=== PATIENT | female | born 1995 | race Caucasian/White ===

== ENCOUNTER 2024-12-22 15:01 | Outpatient (OUT) | payer OTHER, SELFPAY ==
[2024-12-22 15:48] LABS: Estimated Average Glucose 100 mg/dL; Glycohemoglobin A1C 5.1 % (4.5-6.2)
[2024-12-22 16:01] LABS: Basophils Percent Auto 0.2 % (0.2-2.0); Eosinophils Absolute Auto 0.1 10^3/uL (0.0-0.7); Eosinophils Percent Auto 0.9 % (0.9-7.0); Hematocrit 37.1 % (36.0-48.0); Hemoglobin 12.7 g/dL (12.0-16.0); Immature Granulocytes Abs Auto 0.02 10^3/uL (0.00-0.03); Immature Granulocytes Pct Auto 0.2 % (0.0-0.5); Lymphocytes Absolute Auto 1.2 10^3/uL (1.2-3.8); Lymphocytes Percent Auto 13.2 % (20.5-60.0); Mean Corpuscular HGB Conc 34.2 g/dL (29.9-35.2); Mean Corpuscular Hemoglobin 30.7 pg (26.7-34.0); Mean Corpuscular Volume 89.6 fL (81.0-99.0); Mean Platelet Volume 10.1 fL (9.5-13.5); Monocytes Absolute Auto 0.8 10^3/uL (0.3-0.8); Monocytes Percent Auto 8.9 % (1.7-12.0); Neutrophils Absolute Auto 6.9 10^3/uL (1.4-6.5); Neutrophils Percent Auto 76.6 % (43.0-75.0); Platelet Count 213 10^3/uL (150-450); Red Blood Count 4.14 10^6/uL (4.20-5.40)
[2024-12-22 16:09] LABS: Amphetamine Screen Urine NEGATIVE (NEGATIVE); Barbiturates Screen Urine NEGATIVE (NEGATIVE); Benzodiazepines Screen Urine NEGATIVE (NEGATIVE); Buprenorphine Screen Urine NEGATIVE (NEGATIVE); Cannabinoid Screen Urine NEGATIVE (NEGATIVE); Cocaine Screen Urine NEGATIVE (NEGATIVE); Methadone Screen Urine NEGATIVE (NEGATIVE); Methamphetamines Screen Urine NEGATIVE (NEGATIVE); Opiate Screen Urine NEGATIVE (NEGATIVE); Oxycodone Screen Urine NEGATIVE (NEGATIVE); Phencyclidine Screen Urine NEGATIVE (NEGATIVE); Tricyclic Antidepressant Urine NEGATIVE (NEGATIVE)
[2024-12-23 05:07] LABS: HIV Ab/p24 Ag Screen Non Reactive (Non Reactive)
[2024-12-23 06:08] LABS: HBsAg Screen Negative (Negative); HCV Ab Non Reactive (Non Reactive)
[2024-12-23 12:08] LABS: Rapid Plasma Reagin, Quant Non Reactive titer (NonRea<1:1)
== END 2024-12-22 15:02 | disposition home or self-care (01) ==
LOC: LAB 15:08
PROVIDERS: PCP Obstetrics & Gynecology; Visit Provider Obstetrics & Gynecology
DX: Z34.01 Encounter for supervision of normal first pregnancy, first trimester (principal); N92.6 Irregular menstruation, unspecified
CPT/HCPCS: 36415; 80307; 83036; 85025; 86592; 86762; 86803; 86850; 86900; 86901; 87086; 87340; 87389

== ENCOUNTER 2024-12-28 12:06 | Outpatient (OUT) | payer OTHER, SELFPAY | END 2024-12-28 12:07 | disposition home or self-care (01) | LOC: LAB 12:06 | PROVIDERS: PCP Obstetrics & Gynecology; Visit Provider Obstetrics & Gynecology | DX: Z34.90 Encounter for supervision of normal pregnancy, unspecified, unspecified trimester (principal); N92.6 Irregular menstruation, unspecified | CPT/HCPCS: 36415; 86850; 86900; 86901 ==

== ENCOUNTER 2025-01-05 15:49 | Outpatient (REF) | payer OTHER, SELFPAY ==
[2025-01-09 12:09] LABS: Age Gdln ACOG Testing Note (.); IGP, rfx Aptima HPV ASCU Note (.)
== END 2025-01-05 15:50 | disposition home or self-care (01) ==
LOC: LAB 15:49
PROVIDERS: PCP Obstetrics & Gynecology; Visit Provider Obstetrics & Gynecology
DX: Z01.419 Encounter for gynecological examination (general) (routine) without abnormal findings (principal)
CPT/HCPCS: 88175

== ENCOUNTER 2025-03-02 10:19 | Outpatient (OUT) | payer OTHER, SELFPAY ==
[2025-03-04 01:07] LABS: AFP Value 25.7 ng/mL (.); Insulin Dep Diabetes No (.); Maternal Age At EDD 27.9 yr (.); OSBR Risk 1 IN 10000 (.); Results Report (.)
== END 2025-03-02 10:20 | disposition home or self-care (01) ==
LOC: LAB 10:24
PROVIDERS: Visit Provider Physician Assistant
DX: Z34.92 Encounter for supervision of normal pregnancy, unspecified, second trimester (principal)
CPT/HCPCS: 36415; 82105

== ENCOUNTER 2025-04-21 10:26 | Outpatient (OUT) | payer OTHER, SELFPAY ==
--- OUTSIDE RECORDS SUMMARY | 2024-08-09 13:45 | XMS_ITS | Continuity of Care Document ---
Author Organization [facility] Address [address] [place] [address] Phone Care Team Providers Care Service Delivery Management Consultant Name Role Phone JacobSandhya Unavailable Unavailable Procedures [...] Copied on Encounter Estab - Low () [facility], [address], [place], [place], [address], [place] tel:[phone] [place] No Information Jacob Arthur. [address], [place], [place], [address], [place]. tel:[phone] Estab - Low () [facility], [address], [place], [place], [address], [place] tel:[phone] [place] ([place] No Information Jacob Arthur. [address], [place], [place], [address], [place]. tel:[phone] Estab - Low () [facility], [address], [place], [place], [address], [place] tel:[phone] [place] No Information Chandra Kumar. [address], [place], [place], [address], [place]. tel:[phone] [facility], [address], [place], [place], [address], [place] tel:[phone] [place] No Information Cacchio Elisa. [address], [place], [place], [address], [place]. tel:[phone] Estab - Low () [facility], [address], [place], [place], [address], [place] tel:[phone] [place] No Information Cacchio Elisa. [address], [place], [place], [address], [place]. tel:[phone] [facility], [address], [place], [place], [address], [place] tel:[phone] [place] No Information Matthew Werner. [address], [place], [place], [address], [place]. tel:[phone] [facility], [address], [place], [place], [address], [place] tel:[phone] [place] No Information Cacchio Elisa. [address], [place], [place], [address], [place]. tel:[phone] [facility], [address], [place], [place], [address], [place] tel:[phone] [place] No Information Cacchio Elisa. [address], [place], [place], [address], [place]. tel:[phone] [facility], [address], [place], [place], [address], [place] tel:[phone] [place] No Information Cacchio Elisa. [address], [place], [place], [address], [place]. tel:[phone] [facility], [address], [place], [place], [address], [place] tel:[phone] [place] No Information Cacchio Elisa. [address], [place], [place], [address], [place]. tel:[phone] [facility], [address], [place], [place], [address], [place] tel:[phone] [place] No Information Cacchio Elisa. [address], [address], [place], [place], [address], [place]. tel:[phone] [facility], [address], [place], [place], [address], [place] tel:[phone] [place] No Information Cacchio Elisa. [address], [address], [place], [place], [address], [place]. tel:[phone] [facility], [address], [place], [place], [address], [place] tel:[phone] [place] No Information Cacchio Elisa. [address], [place], [place], [address], [place]. tel:[phone] [facility], [address], [place], [place], [address], [place] tel:[phone] [place] No Information Cacchio Elisa. [address], [place], [place], [address], [place]. tel:[phone] [facility], [address], [place], [place], [address], [place] tel:[phone] [place] No Information Cacchio Elisa. [address], [address], [place], [place], [address], [place]. tel:[phone] [facility], [address], [place], [place], [address], [place] tel:[phone] [place] No Information Cacchio Elisa. [address], [place], [place], [address], [place]. tel:[phone] Estab Pt Ob - Moderate (30-39) [facility], [address], [place], [place], [address], [place] tel:[phone] [place] No Information Emilee Pérez. [address], [place], [place], [address], [place]. tel:[phone] New - Low Complexity (30-44) [facility], [address], [place], [place], [address], [place] tel:[phone] [place] No Information Ron Wheeler. [address], [place], [place], [address], [place]. tel:[phone] Family History Family Member Type Diagnosis Age At Onset No Information Payers Payer name Insurance type Covered alliance party ID [facility](s) [employer] [id number] Social History Type Description Quantity Date Captured [...]
--- OUTSIDE RECORDS SUMMARY | 2025-04-10 11:00 | XMS_ITS | Encounter Summary ---
Author Organization [facility] Address [address] [place] [address] Care Team Providers Care Pants Presser Name Role Phone Unallocated, Noms Provider Primary Care Provi [facility] Encounter Details Date Type Department Care Team (Latest Contact Info) Description 04/10/2025 11:00 AM EDT Ancillary Procedure PILO HERMOSILLO [address] [place] [address] Encounter for follow-up ultrasound of anatomy ([facility]) Social History Tobacco Use Types Packs/Day Years Used Date Smoking Tobacco: Never Assessed Estimated Date of Delivery Comme nts Yes 07/20/2025 Based on last me nstrual period of 10/13/2024 Sex and Gender Information Value Date Recorded Sex Assigned at Not on file Legal Sex Female 6:51 PM EDT Gender Identity Female 11/19/2022 6:51 PM EDT Sexual Orientation Bisexual 11/19/2022 6: 51 PM EDT documented as of this encounter Plan of Treatment Upcoming Encounters Date Type Department Care Team (Late st Contact Info) Description 04/26/2025 11:10 AM EDT Routine PILO HERMOSILLO [address] [place] [address] Josiah Childs DO [address] [place], [place] [id number] documented as of this encounter Procedures Procedure Name Priority Date/Time Associated Diagnosis Comments US OB LIMITED 1+ FETUSES Routine 04/10/2025 11:26 AM EDT Encounter for follow-up ultrasound of anatomy ([facility]) documented in this encounter Results * US OB limited 1+ fetuses (04/10/2025 11:26 AM EDT) Anatomical Region Laterality Modality Body Ultrasound 04/11/2025 1:22 PM EDT Impressions 04/11/2025 1:30 PM EDT Normal craniofacial and cardiac, outflow tract anatomy TRANSCRIBED BY: ELECTRONICALLY SIGNED BY: Oseas Martines MD Narrative 04/11/2025 1:30 PM EDT FINDINGS: Single viable intrauterine , cephalic presentation, normal cardiac and activity, heart rate 143 bpm. Adequate visualization appropriate for age of the craniofacial region, 4 chamber heart outflow tracts. Procedure Note Oseas Martines MD - 04/11/2025 FINDINGS: Single viable intrauterine , cephalic presentation, normalcardiac and activity, heart rate 143 bpm. Adequate visualization appropriate for age of the craniofacial region, 4chamber heart outflow tracts. IMPRESSION: Normal craniofacial and cardiac, outflow tract anatomy TRANSCRIBED BY: ELECTRONICALLY SIGNED BY: Oseas Martines MD us Josiah Childs DO IM OB US PROCEDURES Final Resul t documented in this encounter Visit Diagnoses Diagnosis Encounter for follow-up ultrasound of anatomy ([facility]) documented in this encounter Care Teams Pants Presser Relationship Specialty Start Date End Date Unallocated, Noms Provider, [place] [address] PCP - General Family Medicine 01/25/24 documented as of this encounter
--- OUTSIDE RECORDS SUMMARY | 2025-04-10 11:30 | XMS_ITS | Encounter Summary ---
Author Organization [facility] Address [address] [facility] [place] [address] Care Team Providers Care Clamshell Operator Name Role Phone Unallocated, Noms Provider Primary Care [facility] Reason for Visit * Reason Comments Routine Visit Encounter Details Date Type Department Care Team ([facility] Contact Info) Description 04/10/2025 11:30 AM EDT Routine [facility] [place] [facility] [address] [place] [address] Katarzyna Roberts, JAZMIN [address] [place] [address] Second trimester ([facility]); 25 weeks gestation of ([facility]); History of induced hypertension; H/O pre-eclampsia in prior , currently ([facility]); Diabetes mellitus screening Social History Tobacco Use Types Packs/Day Years [...] PM EDT documented as of this encounter Last Filed Vital Signs Vital Sign Reading Time Taken Comments Blood Pressure 118/72 04/10/2025 11:33 AM EDT Pulse - - Temperature - - Respiratory Rate - - Oxygen Saturation - - Inhaled Oxygen Concentration - - Weight 96.6 kg (213 lb) 04/10/2025 11:33 AM EDT Height - - Body Mass Index 37.73 01/31/2022 12:00 PM EDT documented in this encounter Progress Notes * Katarzyna Roberts NP - 04/10/2025 11:30 AM EDT Reason for Appointment: Patient ID: Deirdre Yusuf is a 29 y.o. female who presents for Routine Visit Patient presents today for Return OB appointment. MEDICATIONS Current Outpatient Medications Medication Instructions levocetirizine (XYZAL) 5 mg, Every evening Vit-Fe Fumarate-FA ( Vitamins) 28-0.8 MG tablet 1 tablet, Oral, Daily ALLERGIES Allergies Allergen Reactions Octacosanol Other Reaction(s): Unknown Amoxicillin Hives, Itching and Rash Other Reaction(s): hives Fluconazole Hives and Rash Other Reaction(s): GI upset, lip swelling PROBLEMS Active Ambulatory Problems Diagnosis Date Noted H/O pre-eclampsia in prior , currently ([facility]) 04/10/2025 History of induced hypertension 04/10/2025 Resolved Ambulatory Problems Diagnosis Date Noted No Resolved Ambulatory Problems No Additional Past Medical History HISTORY PAST MEDICAL HISTORY SOCIAL HISTORY No past medical history on file. Social History Tobacco Use Smoking status: Not on file Smokeless tobacco: Not on file Substance Use Topics Alcohol use: Not on file Drug use: Not on file FAMILY HISTORY No family history on file. SURGICAL HISTORY History reviewed. No pertinent surgical history. REVIEW OF SYSTEMS Review of Systems: Review of Systems Constitutional: Negative. HENT: Negative. Eyes: Negative. Respiratory: Negative. Cardiovascular: Negative. Gastrointestinal: Negative. Genitourinary: Negative. Musculoskeletal: Negative. Skin: Negative. Neurological: Negative. All other systems reviewed and are negative. Hematological: Negative. Endocrine: Negative. Allergic/Immunologic: Negative. OBJECTIVE Objective: Physical Exam Constitutional: Appearance: Normal appearance. She is well-developed. Cardiovascular: Rate and Rhythm: Normal rate and regular rhythm. Pulmonary: Effort: Pulmonary effort is normal. Breath sounds: Normal breath sounds. Abdominal: General: Bowel sounds are normal. There is no distension. Palpations: Abdomen is soft. Tenderness: There is no abdominal tenderness. There is no guarding or rebound. Musculoskeletal: General: No swelling. Normal range of motion. Right lower leg: No edema. Left lower leg: No edema. Neurological: Mental Status: She is alert and oriented to person, place, and time. Skin: General: Skin is warm and dry. Psychiatric: Mood and Affect: Mood normal. Behavior: Behavior normal. Vitals and nursing note reviewed. Exam conducted with a drill press hand present. Vitals: Estimated body mass index is 37.73 kg/m?? as calculated from the following: Height as of 01/31/22: 5' 3 . Weight as of this encounter: 213 lb. BP: 118/72 Patient's last menstrual period was 10/13/2024. ASSESSMENT & PLAN ICD-10-CM 1. Second trimester ([facility]) Z34.92 POCT urinalysis dipstick manually resulted 2. 25 weeks gestation of ([facility]) Z3A.25 3. History of induced hypertension Z87.59 4. H/O pre-eclampsia in prior , currently ([facility]) O09.299 5. Diabetes mellitus screening Z13.1 CBC Glucose tolerance, 1 hour CBC Glucose tolerance, 1 hour Return OB: Patient presents today for a routine obstetrics appointment. Patient is currently 25w4d . Patient states she is doing well but has complaints of being tired due to current . Patient has verbalizes frequent movement. labor precautions was discussed/given and patient was instructed to perform kick counts three times a day. Patient was given 1-hour glucose order to obtain and schedule at [facility]. PVU instructions prior to getting labs drawn. Pt had repeat anatomy US done this morning. Orders Placed This Encounter Procedures CBC Glucose tolerance, 1 hour POCT urinalysis dipstick manually resulted Follow Up: Patient is to return to office in 3 week for routine OB appointment. Documented by Kiki Gaspar MA on behalf of: Katarzyna Roberts NP documented in this encounter Plan of Treatment Upcoming Encounters Date Type Department Care Team (Late st Contact Info) Description 04/26/2025 11:10 AM EDT Routine [facility] [address] [place] [address] Josiah Childs DO [address] [place] [address] Scheduled Orders Name Type Priority Associated Diagnoses Orde r Schedule CBC Lab Routine Diabetes mellitus screening Expected: 04/10/2025 (Approximate), Expires: 04/10/2026 Glucose tolerance, 1 hour Lab Routine Diabetes mellitus screening Expected: 04/10/2025 (Approximate), Expires: 04/10/2026 documented as of this encounter Procedures Procedure Name Priority Date/Time Associated Diagnosis Comments POCT URINALYSIS DIPSTICK Routine 04/10/2025 11:37 AM EDT Second trimester ([facility]) documented in this encounter Results * POCT urinalysis dipstick manually resulted (04/10/2025 11:37 AM EDT) Color, UA Yellow Clarity, UA Clear Glucose, UA Negative Negative - 2000(110) ++++ mg/dL Bilirubin, UA Negative Negative - 4(70) +++ mg/dL Ketones, UA Negative Negative - 160(16) ++++ mg/dL Spec Grav, UA 1.015 1 - 1.03 Blood, UA Negative Negative - 50 Hernan/mcL pH, UA 6.0 5 - 9 Protein, UA Negative Negative - 2000(20) ++++ mg/dL Urobilinogen, UA 1.0 0.2 - 12 mg/dL Leukocytes, UA Negative Negative - 500+++ Deana/mcL Nitrite, UA Negative Negative - Positive Urine 04/10/2025 11:3 7 AM EDT Katarzyna Roberts NP POINT OF CARE TEST ENTER/EDIT ORDERABLES Final Result documented in this encounter Visit Diagnoses Diagnosis Second trimester ([facility]) state, incidental 25 weeks gestation of ([facility]) History of induced hypertension H/O pre-eclampsia in prior , currently ([facility]) Diabetes mellitus screening Screening for diabetes mellitus documented in this encounter Care Teams Clamshell Operator Relationship Specialty Start Date End Date Unallocated, Noms Provider, [address] [place] [address] PCP - General Family Medicine 01/25/24 documented as of this encounter
--- OUTSIDE RECORDS SUMMARY | 2025-04-21 10:30 | XMS_ITS | Encounter Summary ---
Author Organization [facility] Address [address] [facility] [place] [address] Care Team Providers Care Intensive Care Anaesthetist Name Role Phone Unallocated, Noms Provider Primary Care [facility] Encounter Details Date Type Department Care Team (Late st Contact Info) Description 01/13/2025 Orders Only [facility] [address] [place] [address] Elizabeth Weeks MA Social History Tobacco Use Types Packs/Day Years [...] Encounters Date Type Department Care Team (Late Contact Info) Description 04/26/2025 11:10 AM EDT Routine [facility] [address] [place] [address] Josiah Childs DO [address] [place] [address] documented as of this encounter Procedures Procedure Name Priority Date/Time Associated Diagnosis Comments PAP SMEAR Routine 01/05/2025 12:00 AM EDT documented in this encounter Results * Pap Smear (01/05/2025 12:00 AM EDT) Swab Cervical swab / Unknown us Josiah Amadeo DO LAB CYTOLOGY ORDERABLES Final Re sult EXTERNAL LAB documented in this encounter Visit Diagnoses Not on filedocumented in this encounter Care Teams Intensive Care Anaesthetist Relationship Specialty Start Date End Date Unallocated, Noms Provider, [address] [place] [address] PCP - General Family Medicine 01/25/24 documented as of this encounter
--- OUTSIDE RECORDS SUMMARY | 2025-04-21 10:30 | XMS_ITS | Clinical Summary ---
Author Organization [employer] Address [id number] [address] [place] [address] Care Team Providers Care Geographical Historian Name Role Phone No Pcp, No Pcp Primary Care Provider Unavailabl e Allergies Active Allergy Reactions Criticality Noted Date Comments Amoxicillin 07/27/2017 Medications * This document contains information received from the source organization and may not represent a complete record from that organization. hydrOXYzine (ATARAX) 10 mg tablet Take 10 mg by mouth 3 (three) times a day as needed for itching. Active ondansetron ODT (ZOFRAN-ODT) 4 mg disintegrating tablet Dissolve 1 tablet (4 mg total) on tongue every 8 (eight) hours as needed for nausea for up to 10 doses. 10 tablet 1 Active dicyclomine (BENTYL) 20 mg tablet Take 1 tablet (20 mg total) by mouth 4 (four) times a day as needed (abdominal cramping). 10 tablet 1 Active Active Problems Problem Noted Date Diagnosed Date Tylenol overdose 12/19/2017 Social History Tobacco Use Types Packs/Day Years Used Date Smoking Tobacco: Never Smokeless Tobacco: Never Alcohol Use Standard Drinks/Week Comments Yes 0 (1 standard drink = 0.6 oz pur e alcohol) occasionally Childcare Answer Date Recorded Childcare Unknown 02/16/2019 Employment Answer Date Recorded Employment Unknown 02/16/2019 Purpose - Life Answer Date Recorded Purpose and direction in life Unknown Comments No Sex and Gender Information Value Date Recorded Sex Assigned at Not on file Legal Sex Female 11:53 AM EDT Gender Identity Not on file Sexual Orientation Not on file Last Filed Vital Signs Vital Sign Reading Time Taken Comments Blood Pressure 124/81 01/03/2021 4:17 PM EDT Pulse 104 01/03/2021 4:17 PM EDT Temperature 36.8 C (98.2 F) 01/03/2021 4:17 PM EDT Respiratory Rate 18 01/03/2021 4:17 PM EDT Oxygen Saturation 97% 01/03/2021 4:17 PM EDT Inhaled Oxygen Concentration - - Weight 79.4 kg (175 lb) 01/03/2021 4:17 PM EDT Height 160 cm (5' 3 ) 01/03/2021 4:17 PM EDT Body Mass Index 31 01/03/2021 4:17 PM EDT Plan of Treatment Health Maintenance Due Date Last Done Comments Depression Screening 2009 Tobacco Screening 2009 Adult BMI Screening 2015 Pap Smear 2018 DTaP,Tdap and Td Vaccines (7 - Td or Tdap) 08/29/2018 08/29/2008, 02/17/2003, 02/01/1999, Additional history exists Influenza Vaccine 05/08/2025 06/22/2019, , 08/29/2008 Medical Devices Not on file Insurance [employer] Member Subscriber Plan / Payer (Ef fective 2016-Present) Name:Deirdre Nichols Relation to Subscriber:Child Name:Yasmeen Noland Date of :1972 (Home) Address: [address] [place] [address] Payer ID:Not on file Type:Not on file Address: [facility] [address] [place] [id number] Advance Directives * Full Code (Latest Code Status on File) Date Activated Date Inactivated Comments 12/19/2017 2:33 PM 12/20/2017 4:51 PM Care Teams Geographical Historian Relationship Specialty Start Date End Date No Pcp[place] [address] PCP - General Family Medicine 01/03/21
--- OUTSIDE RECORDS SUMMARY | 2025-04-21 10:30 | XMS_ITS | Encounter Summary ---
Author Organization [facility] Address [address] [facility] [place] [address] Care Team Providers Care Tank Furnace Operator Name Role Phone Unallocated, Noms Provider Primary Care [facility] Encounter Details Date Type Department Care Team (Late st Contact Info) Description 04/14/2025 Abstract [facility] [address] [place] [address] Elizabeth Weeks MA Social History Tobacco [...] EDT Routine [facility] [address] [place] [address] Josiah Childs DO [address] [place] [address] documented as of this encounter Visit Diagnoses Not on filedocumented in this encounter Care Teams Tank Furnace Operator Relationship Specialty Start Date End Date Unallocated, Noms Provider, [address] [place] [address] PCP - General Family Medicine 01/25/24 documented as of this encounter
--- OUTSIDE RECORDS SUMMARY | 2025-04-21 10:30 | XMS_ITS | Clinical Summary ---
Author Organization [facility] Address [address] [place] [address] Care Team Providers Care Manager Green Name Role Phone Unallocated, Noms Provider Primary Care Provi layo Allergies Active Allergy Reactions Criticality Noted Date Comments Amoxicillin Hives,Itching,Rash Low 07/27/2017 Other Reaction(s): hives Fluconazole Hives,Rash Low 06/22/2021 Other Reaction(s): GI upset, lip swelling Octacosanol 12/22/2024 Other Reaction(s): Unknown Medications Vit-Fe Fumarate-FA ( Vitamins) 28-0.8 MG tabletIndication s:, unspecified gestational age ([facility]),Encoun ter for supervision of normal first in first trimester ([facility]) Take 1 tablet by mouth Daily 30 tablet 11 12/22/2024 12/23/19 26 Active levocetirizine (Xyzal) 5 MG tablet Take 5 mg by mouth in the evening Active Active Problems Problem Noted Date Diagnosed Date H/O pre-eclampsia in prior p regnancy, currently ([facility]) 04/10/2025 History of induced hypertension 2024 Estimated Date of Delivery Comme nts Yes 07/20/2025 Based on last me nstrual period of 10/13/2024 Encounters Date Type Department Care Team Description 04/19/2025 Abstract [facility] [place] [facility] [address] [place] [address] [place] [address] Josiah Childs DO 04/14/2025 Abstract [facility]ath[facility] [place] [address] Micky [place], [place] 04/10/2025 11:30 [place] [address] Katarzyna Roberts NP Second trimester ([facility]); 25 weeks gestation of ([facility]); History of induced hypertension; H/O pre-eclampsia in prior , currently ([facility]); Diabetes mellitus screening 04/10/2025 11:00 AM EDT [place] [address] Encounter for follow-up ultrasound of anatomy ([facility]) 03/14/2025 [place] [address] [place], [place] 03/02/2025 10:20 AM [place] [address] Ernestine López PA Second trimester ([facility]); 20 weeks gestation of ([facility]) 03/02/2025 9:00 AM EDT Ancillary Procedure [facility] [place] [address] Screening, , for anatomic survey ([facility]) 03/02/2025 Clinisync Result Encounter [facility] External Department Unsolicited Ernestine López PA 03/01/2025 Travel 02/02/2025 10:30 AM [place] [address] Ernestine López PA 16 weeks gestation of ([facility]); Second trimester ([facility]); Screening, , for anatomic survey ([facility]) 02/02/2025 Bamboo flowsheet [facility] Sathish HERMOSILLO [address] [place] [phone] Ernestine López PA 01/31/2025 Travel from Last 3 Months Social History Tobacco Use Types Packs/Day Years Used Date Smoking Tobacco: Never Assessed Estimated Date of Delivery Comme nts Yes 07/20/2025 Based on last me nstrual period of 10/13/2024 Sex and Gender Information Value Date Recorded Sex Assigned at Not on file Legal Sex Female 6:51 PM EDT Gender Identity Female 11/19/2022 6:51 PM EDT Sexual Orientation Bisexual 11/19/2022 6: 51 PM EDT Last Filed Vital Signs Vital Sign Reading Time Taken Comments Blood Pressure 118/72 04/10/2025 11:33 AM EDT Pulse - - Temperature - - Respiratory Rate - - Oxygen Saturation - - Inhaled Oxygen Concentration - - Weight 96.6 kg (213 lb) 04/10/2025 11:33 AM EDT Height 160 cm (5' 3 ) 01/31/2022 12:00 PM EDT Body Mass Index 37.73 01/31/2022 12:00 PM EDT Plan of Treatment Upcoming Encounters Date Type Department Care Team (Late st Contact Info) Description 04/26/2025 11:10 AM EDT Routine [facility] Sathish HERMOSILLO [address] [place] [phone] Josiah Childs DO [address] [facility] [address] [place] [address] Health Maintenance Due Date Last Done Comments Influenza Vaccine (#1) 2025 2, 06/20/2020, 06/22/2019, Additional history exists Procedures Procedure Name Priority Date/Time Associated Diagnosis Comments POCT URINALYSIS DIPSTICK Routine 04/10/2025 11:37 AM EDT Second trimester ([facility]) US OB LIMITED 1+ FETUSES Routine 04/10/2025 11:26 AM EDT Encounter for follow-up ultrasound of anatomy ([facility]) AFP, SERUM, OPEN SPINA BIFIDA Routine 03/02/2025 10:36 AM EDT POCT URINALYSIS DIPSTICK Routine 03/02/2025 10:03 AM EDT Second trimester ([facility]) 20 weeks gestation of ([facility]) US OB 14+ WEEKS ANATOMY SCAN Routine 03/02/2025 9:45 AM EDT Screening, , for anatomic survey ([facility]) POCT URINALYSIS DIPSTICK Routine 02/02/2025 10:49 AM EDT 16 weeks gestation of ([facility]) Second trimester ([facility]) from Last 3 Months Results * POCT urinalysis dipstick manually resulted (04/10/2025 11:37 AM EDT) Only the most recent of3 resultswithin the time period is included. Color, UA Yellow Clarity, UA Clear Glucose, [...] OF CARE TEST ENTER/EDIT ORDERABLES Final Result * US OB limited 1+ fetuses (04/10/2025 [...] SIGNED BY: Oseas Martines MD us Josiah Amadeo DO IMG OB US PROCEDURES Final Resul t * AFP, SERUM, OPEN SPINA BIFIDA (03/02/2025 10:36 AM EDT) RESULTS Report . [facility] TEST RESULTS: *Screen Negative* . [facility] GEST. AGE ON COLLECTION DATE 20.0 . weeks [facility] GESTAT. AGE BASED ON LMP . [facility] Comment: Recalculations are not recommended when gestational dating by LMP and ultrasound are within 10 days. [age] [facility] RACE . [facility] WEIGHT 206 . lbs [facility] INSULIN DEP DIABETES No . [facility] MULTIPLE GESTATION No . [facility] AFP VALUE 25.7 . ng/mL [facility] AFP MOM 0.55 . [facility] [place] [address] [place] [address] . [facility] INTERPRETATION Comment . [facility] Comment: Interpretation: Screen Negative This result is screen negative for OSB. The AFP MoM calculated is based on the gestational age provided. MS-AFP can identify up to 80% of open neural tube defects. Closed neural tube defects and some open defects may not be detected by this test. This test does not screen for Down Syndrome or Trisomy 18. If screening for Down Syndrome or Trisomy 18 is desired, contact [facility] to discuss available options. The [place] [employer] recommends amniocentesis be offered to women age 35 and older. COMMENT: Comment . [facility] Comment: Sidra Da Silva, Ph.D., [facility] Director References: Available Upon Request. Multiples Of Median Cutoffs For AFP Elevations Root 2.5 Black 2.8 IDD 2.0 Twins 4.5 Abbreviation Definitions IDD - Insulin Dep Diabetes OSBR - Open Spina Bifida Risk For further inquiries contact [facility] at [phone]. This test was developed and its performance characteristics determined by [email or web address]. It has not been cleared or approved by the Food and Drug Administration. Performed at: [facility] [address] [id number] Line Maintenance: Basilia Taylor [facility], Phone: [phone] 03/02/2025 10:3 6 AM EDT 03/02/2025 10:37 AM EDT Narrative LISA - 03/04/2025 1:07 AM EDT N N LMP [id number] 0 16 N 1 Y 206 N N N N N White/ us Ernestine [facility] LAB BLOOD ORDERABLES Final [facility]ul t [facility] * US OB 14+ weeks anatomy scan (03/02/2025 9:45 AM EDT) Anatomical Region Laterality Modality Body Ultrasound 03/05/2025 10:0 4 PM EDT Narrative 03/05/2025 10:04 PM EDT EXAM: US OB 14+ WEEKS ANATOMY SCAN HISTORY: anatomy. COMPARISON: Ob ultrasound 12/22/2024. TECHNIQUE: Two-dimensional transabdominal grayscale ultrasound imaging of the pelvis was performed. FINDINGS: Gestation: Single Presentation: Breech Cardiac Activity: 155 beats per minute Placental Location: Anterior with no sonographic abnormalities identified. Distance from Placental Tip to Cervix: 7.1 cm Cervical Length: 4.0 cm Amniotic Fluid: Appears adequate MEASUREMENTS: BPD: 4.3 cm EGA: 19 weeks 0 days HC: 16.3 cm EGA: 19 weeks 1 days AC: 15.2 cm EGA: 20 weeks 3 days FL: 3.3 cm EGA: 20 weeks 1 days HC/AC Ratio: 1.08 The gestational age by today's ultrasound is 19 weeks 5 days (+/- 10 days gestation). Estimated Weight: 334 grams, +/- 50 grams ( 0 lb 12 oz). Weight Percentile for gestational age: 53 % ANATOMY C-Spine: Unremarkable T-Spine: Unremarkable L-Spine: Unremarkable Sacrum: Unremarkable Four Chamber Heart: Limited LVOT: Not visualized RVOT: Not visualized Stomach: Unremarkable Kidneys: Unremarkable Bladder: Unremarkable Diaphragm: Unremarkable Cord insertion: Unremarkable Cord vessels: Three Lateral Ventricles: Unremarkable Cerebellum: Unremarkable Cisterna Magna: Unremarkable Posterior Fossa: Unremarkable Right Femur: Unremarkable Left Femur: Unremarkable Right Tib/Fib: Unremarkable Left Tib/Fib: Unremarkable Right Rad/Ulnar: Unremarkable Left Rad/Ulnar: Unremarkable Right Humerus: Unremarkable Left Humerus: Unremarkable Nose/Lips: Not visualized Profile: Unremarkable Orbits: Limited IMPRESSION: 1. Single, live intrauterine gestation 20 weeks, 0 days by LMP. Today's ultrasound measurements correlate with a gestational age of 19 weeks 5 days. Estimated weight is 334 grams, +/- 50 grams ( 0 lb 12 oz) which correlates to 53 %. EVA by today's ultrasound is 07/22/2025. 2. Limited anatomy, as described above. A short-term follow-up ultrasound is recommended. Interpreted by: Electronically signed by DELFINO ZENDEJAS II, MD, PHD at 05-Mar-2025 10:03:06 PM [facility] Procedure Note Delfino Zendejas MD - 03/05/2025 EXAM: US OB 14+ WEEKS ANATOMY SCAN HISTORY: anatomy. COMPARISON: Ob ultrasound 12/22/2024. TECHNIQUE: Two-dimensional transabdominal grayscale ultrasound imaging ofthe pelvis was performed. FINDINGS: Gestation: Single Presentation: Breech Cardiac Activity: 155 beats per minute Placental Location: Anterior with no sonographic abnormalitiesidentified. Distance from Placental Tip to Cervix: 7.1 cm Cervical Length: 4.0 cm Amniotic Fluid: Appears adequate MEASUREMENTS: BPD: 4.3 cm EGA: 19 weeks 0 days HC: 16.3 cm EGA: 19 weeks 1 days AC: 15.2 cm EGA: 20 weeks 3 days FL: 3.3 cm EGA: 20 weeks 1 days HC/AC Ratio: 1.08 The gestational age by today's ultrasound is 19 weeks 5 days (+/- 10 daysgestation). Estimated Weight: 334 grams, +/- 50 grams ( 0 lb 12 oz). Weight Percentile for gestational age: 53 % ANATOMY C-Spine: Unremarkable T-Spine: Unremarkable L-Spine: Unremarkable Sacrum: Unremarkable Four Chamber Heart: Limited LVOT: Not visualized RVOT: Not visualized Stomach: Unremarkable Kidneys: Unremarkable Bladder: Unremarkable Diaphragm: Unremarkable Cord insertion: Unremarkable Cord vessels: Three Lateral Ventricles: Unremarkable Cerebellum: Unremarkable Cisterna Magna: Unremarkable Posterior Fossa: Unremarkable Right Femur: Unremarkable Left Femur: Unremarkable Right Tib/Fib: Unremarkable Left Tib/Fib: Unremarkable Right Rad/Ulnar: Unremarkable Left Rad/Ulnar: Unremarkable Right Humerus: Unremarkable Left Humerus: Unremarkable Nose/Lips: Not visualized Profile: Unremarkable Orbits: Limited IMPRESSION: 1. Single, live intrauterine gestation 20 weeks, 0 days by LMP. Today'sultrasound measurements correlate with a gestational age of 19 weeks 5days. Estimated weight is 334 grams, +/- 50 grams ( 0 lb 12 oz)which correlates to 53 %. EVA by today's ultrasound is 07/22/2025. 2. Limited anatomy, as described above. A short-term follow-upultrasound is recommended. Interpreted by: Electronically signed by DELFINO ZENDEJAS II, MD, PHD 10:03:06 PM [facility] us Ernesitne [facility] IMG OB US PROCEDURES Final Resul t from Last 3 Months Insurance [employer] Care Teams Manager Green Relationship Specialty Start Date End Date Unallocated, Noms Provider, [address] [place], [place] [phone] PCP - General Family Medicine 01/25/24
--- OUTSIDE RECORDS SUMMARY | 2025-04-21 10:30 | XMS_ITS | Encounter Summary ---
[facility] Address [id number] [address] [place] [address] Care Team Providers Care Collective Bargaining Specialist Name Role Phone No Pcp, No Pcp Primary Care Provider Unavailabl e Encounter Details Date Type Department Care Team (Late st Contact Info) Description 12/20/2017 Documentation [facility] - ICU [address] [place] [phone] Eusebio Fry, NAIL MAKER-FRUIT VENDOR [address], [address] [place] [address] Social History Tobacco Use Types Packs/Day Years Used Date Smoking Tobacco: Never Smokeless Tobacco: Never Alcohol Use Standard Drinks/Week Comments No 0 (1 standard drink = 0.6 oz pur e alcohol) Comments No Sex and Gender Information Value Date Recorded Sex Assigned at Not on file Legal Sex Female 11:53 AM EDT Gender Identity Not on file Sexual Orientation Not on file documented as of this encounter Plan of Treatment Not on file documented as of this encounter Visit Diagnoses Not on filedocumented in this encounter Care Teams Collective Bargaining Specialist Relationship Specialty Start Date End Date No Pcp, [place] [address] PCP - General Family Medicine 01/03/21 documented as of this encounter
--- OUTSIDE RECORDS SUMMARY | 2025-04-21 10:30 | XMS_ITS | Encounter Summary ---
Author Organization [facility] Address [address] [place] [address] Care Team Providers Care Pulp Operator Name Role Phone Unallocated, Noms Provider Primary Care Provi [facility] Encounter Details Date Type Department Care Team (Late Contact Info) Description 04/19/2025 [address] [facility] [place] [phone] Josiah Childs DO [address] [place], [place] [address] Social History Tobacco Use Types Packs/Day Years [...] EDT Routine PILO [address]ILLO [address] [place] [phone] Josiah Childs DO [address], [facility] documented as of this encounter Visit Diagnoses Not on filedocumented in this encounter Care Teams Pulp Operator Relationship Specialty Start Date End Date Unallocated, Noms Provider, [address] [place] [address] PCP - General Family Medicine 01/25/24 documented as of this encounter
--- OUTSIDE RECORDS SUMMARY | 2025-04-21 10:30 | XMS_ITS | Clinical Summary ---
Author Organization [facility] Address [address] [place] [address] Care Team Providers Care Barista Name Role Phone Alicia Jurado [employer]ICOND[employer] PACKAGES PLATEMAKER Primary Care Provider + [phone] Allergies Active Allergy Reactions Criticality Noted Date Comments Amoxicillin Rash Low 07/27/2017 Fluconazole Hives 01/20/2024 Medications cetirizine (ZYRTEC) 10 MG tablet 06/01/2023 Active prenat.vits,raina, [id number] Tab Take by mouth . Active Active Problems Problem Noted Date Diagnosed Date 01/20/2024 Social History Tobacco Use Types Packs/Day Years Used Date Smoking Tobacco: Never Smokeless Tobacco: Never Tobacco Cessation:Counseling Given: Not Answered Alcohol Use Standard Drinks/Week Comments Not Currently 0 (1 standard drink = 0.6 oz pur e alcohol) [facility] Utilities Answer Date Recorded In the past 12 months has [facility] [employer], gas, oil, or water [employer] threatened to shut off services in your home? No 01/21/2024 Humiliation, Afraid, Rape, and Kick questionnair e Answer Date Recorded Within the last year, have y ou been afraid of your partner or ex-partner? No 01/21/2024 Within the last year, have y ou been humiliated or emotionally abused in other ways by your partner or ex-partner? No Within the last year, have y ou been kicked, hit, slapped, or otherwise physically hurt by your partner or ex-partner? No 01/21/2024 Within the last year, have y ou been raped or forced to have any kind of sexual activity by your partner or ex-partner? No 01/21/2024 Hunger Vital Sign Answer Date Recorded Within the past 12 months, y ou worried that your food would run out before you got the money to buy more. Never true 01/21/20 24 Within the past 12 months, t he food you bought just didn't last and you didn't have money to get more. Never true 01/21/2024 PRAPARE - Transportation Answer Date Re corded In the past 12 months, has l ack of transportation kept you from medical appointments or from getting medications? No 01/05 In the past 12 months, has l ack of transportation kept you from meetings, work, or from getting things needed for daily living? No 01/21/2024 Housing Stability Vital Sign Answer Raulito e Recorded In the last 12 months, was t here a time when you were not able to pay the mortgage or rent on time? No 01/21/2024 In the last 12 months, how many places have you lived? 1 01/21/2024 In the last 12 months, was t here a time when you did not have a steady place to sleep or slept in a correction (including now)? No 01/21/2024 Comments No Sex and Gender Information Value Date Recorded Sex Assigned at Not on file Legal Sex Female 2:07 PM EST Gender Identity Female 01/13/2024 3:35 PM EDT Sexual Orientation Not on file Last Filed Vital Signs Vital Sign Reading Time Taken Comments Blood Pressure 128/84 01/24/2024 8:29 AM EDT Pulse 92 01/24/2024 8:29 AM EDT Temperature 36.7 C (98.1 F) 01/24/2024 8:29 AM EDT Respiratory Rate 16 01/24/2024 1:30 PM EDT Oxygen Saturation 99% 01/24/2024 8:29 AM EDT Inhaled Oxygen Concentration - - Weight 103.9 kg (229 lb) 01/20/2024 9:00 PM EDT Height 160 cm (5' 3 ) 01/20/2024 9:00 PM EDT Body Mass Index 40.57 01/20/2024 9:00 PM EDT Plan of Treatment Health Maintenance Due Date Last Done Comments Medicare Wellness Visit 2000 Depression Screening/Follow-Up (PHQ-2/9) 2009 HIV Screening 2012 Tetanus: Every 10yrs 08/29/2018 08/29/2008 COVID-19 Vaccine ( season) 2024 08/12/2021, 12/19/2020, 11/27/2020 Influenza Vaccine (#1) 2025 , 06/20/2020, 06/22/2019, Additional history exists Pap Smear 08/25/2025 08/25/2022 Hepatitis C Screening Completed 01/20/2024 Pneumococcal Vaccine: Ped or At-Risk Aged Out No longer eligible based on patient's age to complete this topic Procedures Procedure Name Priority Date/Time Associated Diagnosis Comments HEPATITIS C ANTIBODY Routine 01/20/2024 8:29 PM EDT from Last 3 Months or Most Recently Relevant to Health Maintenance Results * Hepatitis C Antibody (01/20/2024 8:29 PM EDT) Hepatitis C Ab Negative Negative 01/20/2024 10:56 PM EDT [facility] Blood BLOOD SPECIMEN / Unknown Venipuncture / Unknown 01/20/2024 8:29 PM EDT 01/20/2024 8:56 PM EDT Narrative [facility] - 01/20/2024 10:56 PM EDT Test performed using Dorie KERRI immunoassay system Jose Foley MD LAB BLOOD ORDERABLES Final Result [facility] [address] [place] [address] from Last 3 Months or Most Recently Relevant to Health Maintenance Insurance MEDIC[facility] [place] [id number] Advance Directives For more information, please contact: [phone] * Full Code (Latest Code Status on File) Date Activated Date Inactivated Comments 01/22/2024 5:02 AM 01/24/2024 6:06 PM * Full Code Date Activated Date Inactivated Comments 01/22/2024 12:48 AM 01/22/2024 3:31 AM * Full Code Date Activated Date Inactivated Comments 01/20/2024 8:58 PM 01/22/2024 12:48 AM Care Teams Barista Relationship Specialty Start Date End Date Alicia Jurado CNP [address] [place] [address] PCP - General 01/13/24
--- OUTSIDE RECORDS SUMMARY | 2025-04-21 10:34 | XMS_ITS | CCD ---
Author Organization [facility] Care Team Providers Care Director Underwriter Sales Name Role Phone ROSALEE LR Admitting Unavailable ROSALEE LR Attending Unavailable ROSALEE LR Consulting Unavailable HERIBERTO JHA Admitting Unavailable HERIBERTO JHA Attending Unavailable MISC, DOCTOR Primary Care Unavailable HERIBERTO JHA Consulting Unavailable WYATT CURRAN Consulting Unavailable Neuhart AIR BAG CURER, Ej Primary Care Provider Neueric AIR BAG CURER, Ej Primary Care Provider EJ BURK Attending Unavailable NEUSINCERET, EJ Primary Care Unavailable NEUYADY HAWKINSA Attending Unavailable NEUHART, EJ Primary Care Unavailable NEUHART, EJ Primary Care Unavailable NEUHART EJ Attending Unavailable PAMELA WILLIAM Attending Unavailabl e NO, PHYSICIAN Primary Care Unavailable Neuhart SVETA, Ej Primary Care Provider FRANKIE ARTIS Attending Unavailab JAMES Muñoz Admitting Unavailable NO, PHYSICIAN Primary Care Unavailable [facility] onsulting Unavailable Unallocated MD, Noms Provider Primary Care Provi layo JOSIAH CHILDS Attending Unavailable ERNESTINE LÓPEZ Attending Unavailable ERNESTINE LÓPEZ Attending Unavailable QUINCY ROBERTS Attending Unavailable Allergies Allergy Classification Reported Allergen(s) Allergy Type Date of Onset Reaction(s) Facility (20 sources) Amoxicillin; Translations: [AMOXICILLIN] Drug Allergy 7 Hives, Itching, Rash Tk20 (6 sources) Fluconazole; Translations: [FLUCONAZOLE] Drug Allergy 1 Rash, Hives [facility] Work Phone: (15 sources) Fluconazole Allergy to substance 1 Hives, Rash [facility] (15 sources) Octacosanol Drug Intolerance 5 [facility] Medications Current Medications Medication Drug Class(es) Dates Sig (Normalized) Sig (Original) cetirizine hydrochloride 10 mg oral tablet (11 sources) Histamine-1 Receptor Antagonist Start: 06-01-2023 cetirizine (ZYRTEC) 10 MG tablet Start: 07-21-2022 End: 03-02-2025 take 1 tablet by mouth once daily cetirizine (ZyrTEC) 10 mg tablet Indications: Allergic rhinitis, unspecified seasonality, unspecified trigger Take 1 tablet (10 mg total) by mouth 1 (one) time each day if needed for allergies. 90 tablet 3 11/24/2022 Active fluticasone propionate 0.05 mg/actuat metered dose nasal spray (4 sources) Corticosteroid Start: 07-21-2022 End: 07-21-2023 take 2 spray(s) nasal route once daily fluticasone propionate (FLONASE) 50 mcg/actuation nasal spray Indications: Allergic rhinitis, unspecified seasonality, unspecified trigger Administer 2 sprays into each nostril 1 (one) time each day. Shake gently. Before first use, prime pump. After use, clean tip and replace cap. 30 mL 3 07/21/2022 07/21/2023 Active hydrOXYzine hydrochloride 50 mg oral tablet (4 sources) Antihistamine Start: 06-09-2020 hydrOXYzine HCL (ATARAX) 50 mg tablet levocetirizine dihydrochloride 5 mg oral tablet (5 sources) Histamine-1 Receptor Antagonist take 1 tablet by mouth in the evening levocetirizine (Xyzal) 5 MG tablet Take 5 mg by mouth in the evening Active metroNIDAZOLE 0.0075 mg/mg vaginal gel (4 sources) Nitroimidazole Antimicrobial Start: 12-26-2024 End: 12-31-2024 metroNIDAZOLE (Metrogel) 0.75 % vaginal gel Indications: BV (bacterial vaginosis) Insert into the vagina Daily for 5 days 70 g 12/26/2024 12/31/2024 Active Start: 12-22-2024 End: 12-29-2024 take 1 tablet by mouth in the morning metroNIDAZOLE (Flagyl) 500 MG tablet Indications: BV (bacterial vaginosis) Take 1 tablet (500 mg) by mouth in the morning and 1 tablet (500 mg) before bedtime. Do all this for 7 days. 14 tablet 12/22/2024 12/29/2024 Active prenat.vits,raina,ixa-oylu-xsj ic Tab (2 sources) prenat.vits,raina, gxw-ylvo-bltbb Tab Take by mouth . 0 Active prenat.vits,raina, tlz-ifsf-woqwy Tab Take by mouth . 0 Vit-Fe Fumarate-FA ( Vitamins) 28-0.8 MG tablet (15 sources) Start: 12-22-2024 End: 12-22-2025 take 1 tablet by mouth once daily Vit-Fe Fumarate-FA ( Vitamins) 28-0.8 MG tablet Indications: , unspecified gestational age ([facility]) , Encounter for supervision of normal first in first trimester ([facility]) Take 1 tablet by mouth Daily 30 tablet 11 12/22/2024 12/22/2025 Active Start: 12-22-2024 End: 12-22-2025 take 1 tablet by mouth once daily Vit-Fe Fumarate-FA ( Vitamins) 28-0.8 MG tablet Indications: , unspecified gestational age , Encounter for supervision of normal first in first trimester Take 1 tablet by mouth Daily 30 tablet 12/22/2024 12/22/2025 Active Completed/Discontinued Medications Medication Drug Class(es) Dates Sig (Normalized) Sig (Original) acetaminophen 325 mg oral tablet (2 sources) Start: 01-21-2024 End: 01-24-2024 take 1 tablet by mouth every four hours as needed for pain 650 mg, Oral, Every 4 hours PRN, mild pain, Starting on Thu01/22/24 at 0502, aluminum hydroxide 40 mg/ml / magnesium hydroxide 40 mg/ml / simethicone 4 mg/ml oral suspension (1 source) Start: 01-22-2024 End: 01-24-2024 take 30 mL by mouth every four hours as needed 30 mL, Oral, Every 4 hours PRN, indigestion, Starting on Thu01/22/24 at 0502, calcium carbonate 500 mg chewable tablet (1 source) Start: 01-21-2024 End: 01-22-2024 calcium carbonate (TUMS) chewable tablet 500 mg calcium chloride 0.0014 meq/ml / potassium chloride 0.004 meq/ml / sodium chloride 0.103 meq/ml / sodium lactate 0.028 meq/ml injectable solution (1 source) Start: 01-20-2024 End: 01-22-2024 lactated Ringers infusion 1 ml carboprost 0.25 mg/ml injection (2 sources) Prostaglandin Analog Start: 01-22-2024 End: 01-24-2024 inject 250 ug by intramuscular injection every twenty-four hours as needed 250 mcg, Intramuscular, Once as needed, hemorrhage, Starting on Thu01/22/24 at 0502, For 1 dose, , Only give as directed by physician Do not administer to asthmatics. Start: 01-22-2024 End: 01-22-2024 inject 250 ug by intramuscular injection every twenty-four hours as needed carboprost (HEMABATE) injection 250 mcg diphenhydrAMINE (1 source) Histamine-1 Receptor Antagonist Start: 01-22-2024 End: 01-24-2024 take 1 tablet by mouth every six hours as needed diphenhydrAMINE (BENADRYL) tablet 25 mg docusate sodium 100 mg oral capsule (1 source) Start: 01-22-2024 End: 01-24-2024 take 100 mg by mouth twice daily as needed for constipation 100 mg, Oral, 2 times daily PRN, constipation, Starting on Thu01/22/24 at 0502, , Hold for loose stools DO NOT CRUSH OR CHEW. ferrous sulfate 325 mg oral tablet (1 source) Start: 01-22-2024 End: 01-24-2024 ferrous sulfate tablet 325 mg 0.5 ml HYDROmorphone hydrochloride 1 mg/ml prefilled syringe (3 sources) Opioid Agonist Start: 01-22-2024 End: 01-24-2024 take 0.5 mg intravenously every twenty-four hours as needed 0.5 mg, Intravenous, Once as needed, Pain Associated with Hemorrhage Management., Starting on Thu01/22/24 at 0502, For 1 dose, Start: 01-20-2024 End: 01-24-2024 0.5 mg, Intravenous, Every 1 5 min PRN, While on Epidural, for moderate to severe breakthrough pain, Starting on [place] 01/21/24 at 0305, Sign and Release, Use IV if moderate to severe pain persists 30 minutes after one dose of sublingual oxycodone or morphine, or if sublingual route not ordered. Do not exceed 1 mg per hour. Call anesthesia if moderate to severe pain persists 15 minutes after a second IV dose given within an hour. ibuprofen 600 mg oral tablet (2 sources) Nonsteroidal Anti-inflammatory Drug Start: 01-22-2024 End: 01-24-2024 take 1 dose by mouth every six hours at mealtime 600 mg, Oral, Every 6 hours scheduled, First dose on Thu01/22/24 at 1200, , Give with food. Do not give within 6 hours of other NSAIDS, initial ibuprofen dose or ketorolac (Toradol). Do Not Crush or Chew if administering orally due to bitter taste. May be crushed if given via tube. Start: 01-22-2024 End: 01-22-2024 take 1 tablet by mouth every twenty-four hours as needed for pain ibuprofen (ADVIL,MOTRIN) tablet 800 mg loperamide hydrochloride 2 mg oral capsule (1 source) Opioid Agonist Start: 01-22-2024 End: 01-24-2024 loperamide (IMODIUM) capsule 2 mg 1 ml methylergonovine maleate 0.2 mg/ml injection (2 sources) Ergot Derivative Start: 01-22-2024 End: 01-24-2024 inject 200 ug by intramuscular injection every twenty-four hours as needed 200 mcg, Intramuscular, Once as needed, hemorrhage, Starting on Thu01/22/24 at 0502, For 1 dose, , Only give as directed by physician DO NOT ADMINISTER IF BP greater than 140/90 or pre-existing hypertension. CATEGORY B HAZARDOUS DRUG use safe handling precautions. Use reference link to view PPE guidelines. Safe handling precautions only required when in the third trimester. EMERGENCY Hazardous Drug use professional judgement when deviating from standard handling precautions. Start: 01-22-2024 End: 01-22-2024 methylergonovine (METHERGINE ) injection miSOPROStol 0.2 mg oral tablet (1 source) Prostaglandin E1 Analog Start: 01-22-2024 End: 01-24-2024 take 1 tablet rectal route every twenty-four hours as needed 1,000 mcg, Rectal, Once as needed, hemorrhage, Starting on Thu01/22/24 at 0502, For 1 dose, , Only give as directed by physician Hazardous Medication. Use safe handling precautions CATEGORY D HAZARDOUS DRUG use safe handling precautions. Use reference link to view PPE guidelines. Minimize crushing/splitting only to situations where clinically necessary. 1 ml nalbuphine hydrochloride 10 mg/ml injection (1 source) Opioid Agonist/Antagonis t Start: 01-21-2024 End: 01-24-2024 take 2.5 mg intravenously every six hours as needed 2.5 mg, Intravenous, Every 6 hours PRN, itching, Starting on [place] 01/21/24 at 0305, Sign and Release, For itching while Epidural Infusion orders in effect. naloxone (NARCAN) 0.4 mg in sodium chloride 0.9 % (NS) 100 mL infusion (1 source) Start: 01-21-2024 End: 01-24-2024 take 0.04 mg intravenously every hour as needed 0.04 mg/hr (10 mL/hr), Intravenous, Continuous PRN, itching, Starting on [place] 01/21/24 at 0305, Sign and Release, For itching while Epidural Orders in effect if nalbuphine (NUBAIN) and diphenhydramine (BENADRYL) ineffective or not ordered. naloxone (NARCAN) injection 0.1 mg (2 sources) Start: 01-22-2024 End: 01-24-2024 naloxone (NARCAN) injection 0.1 mg Start: 01-21-2024 End: 01-24-2024 naloxone (NARCAN) injection 0.1 mg ondansetron 4 mg disintegrating oral tablet (7 sources) Serotonin-3 Receptor Antagonist Start: 01-05-2025 End: 02-04-2025 take 1 tablet by mouth every six hours for nausea ondansetron ODT (Zofran-ODT) 4 MG disintegrating tablet Indications: Nausea and vomiting, unspecified vomiting type Take 1 tablet (4 mg) by mouth every 6 (six) hours if needed for nausea 30 tablet 2 01/05/2025 02/02/2025 Discontinued ondansetron (ZOFRAN-ODT) disintegrating tablet 4 mg (1 source) Start: 01-22-2024 End: 01-24-2024 take 1 tablet by mouth every six hours as needed for nausea and vomiting ondansetron (ZOFRAN-ODT) disintegrating tablet 4 mg oxyCODONE hydrochloride 5 mg oral tablet (1 source) Opioid Agonist Start: 01-22-2024 End: 01-24-2024 take 5-10 mg by mouth every four hours as needed 5-10 mg, Oral, Every 4 hours PRN (may repeat), moderate to severe pain, Starting on Thu01/22/24 at 0502, , Initiate with 5 mg every 4 hours as needed for moderate to severe pain. For UNrelieved pain, may repeat 5 mg dose within 60 minutes of first dose. If pain is RELIEVED after repeat dose, change to 10 mg oral every 4 hours as needed for moderate to severe pain. If pain is UNrelieved after repeat dose, or patient requires dose reduction, call physician. oxytocin (HIGH DOSE) in LR (PITOCIN) 40 unit/ 1,000 mL infusion Soln 40 Units (1 source) Start: 01-22-2024 End: 01-24-2024 Intravenous, at 4,000 mL/hr, Once as needed, hemorrhage, Starting on Thu01/22/24 at 0502, For 1 dose, , Only give as directed by physician CATEGORY B HAZARDOUS DRUG use safe handling precautions. Use reference link to view PPE guidelines. Safe handling precautions only required when in the third trimester. EMERGENCY Haz Drug use professional judgement when deviating from standard handling precautions. oxytocin in lactated ringers (PITOCIN) 20 unit/1,000 mL infusion (1 source) Start: 01-20-2024 End: 01-22-2024 oxytocin in lactated ringers (PITOCIN) 20 unit/1,000 mL infusion rho(d) immune globulin (RHOPHYLAC) injection 300 mcg (1 source) Start: 01-22-2024 End: 01-24-2024 inject 300 ug by intramuscular injection every twenty-four hours as needed rho(d) immune globulin (RHOPHYLAC) injection 300 mcg 200 ml ropivacaine hydrochloride 2 mg/ml injection (1 source) Amide Local Anesthetic Start: 01-21-2024 End: 01-24-2024 Epidural, Continuous, Starting on [place] 01/21/24 at 0400, Sign and Release, Only the patient is permitted to push the PCEA button., Continous Infusion: 10 mL/hr, PCEA Bolus Dose: 5 mL, PCEA Bolus Lockout Interval: 15 minutes, Number of Boluses per Hour: 4 simethicone 80 mg chewable tablet (1 source) Start: 01-22-2024 End: 01-24-2024 80 mg, Oral, After meals as needed, flatulence, gas discomfort, Starting on Thu01/22/24 at 0502, 1000 ml sodium chloride 9 mg/ml injection (2 sources) Start: 01-22-2024 End: 01-24-2024 0-150 mL/hr, Intravenous, As needed, To flush line after IV infusions when no maintenance IV ordered or a compatibility issue. Infuse 20mL at the same rate as the secondary infusion, Starting on Thu01/22/24 at 0502, L&D Post-Delivery, Run as Primary IV. NOT intended for KVO. 100 ml tranexamic acid 10 mg/ml injection (2 sources) Antifibrinolytic Agent Start: 01-22-2024 End: 01-24-2024 take 1000 mg intravenously every twenty-four hours as needed 1,000 mg, Intravenous, Administer over 10 Minutes, Once as needed, hemorrhage, Starting on Thu01/22/24 at 0502, For 1 dose, , Only give as directed by physician. This is a REPEAT DOSE, and should be given IF DIRECTED if bleeding continues 30 minutes after administration of the First Dose, or if bleeding stops and then restarts within 24 hours of administering the First Dose. MAXIMUM TOTAL dose of 2000 mg. Start: 01-22-2024 End: 01-24-2024 take 1000 mg intravenously every twenty-four hours as needed 1,000 mg, Intravenous, Administer over 10 Minutes, Once as needed, hemorrhage, Starting on Thu01/22/24 at 0502, For 1 dose, , Only give as directed by physician. This is the FIRST DOSE, and should be given IF DIRECTED within 3 hours of . MAXIMUM TOTAL dose of 2000 mg. Problems Active Problems Problem Classification Problem Date Documented Date Episodic/Chronic Bacterial infection; unspecified site (2 sources) Unspecified staphylococcus as the cause of diseases classified elsewhere; Translations: [Unspecified staphylococcus as the cause of diseases classified elsewhere] Onset: 08-27-2023 Episodic Immunizations and screening for infectious disease (9 sources) Contact with and (suspected) exposure to infections with a predominantly sexual mode of transmission; Translations: [Needs influenza immunization] Onset: 04-28-2019 Episodic Inflammatory diseases of female pelvic organs (1 source) Bacterial vaginosis; Translations: [Acute vaginitis] 12-22-2024 Episodic Menstrual disorders (1 source) Missed period; Translations: [Irregular menstruation, unspecified] 12-22-2024 Chronic Mood disorders (7 sources) Bipolar I disorder; Translations: [Bipolar disorder, unspecified] Onset: 06-22-2019 08-25-2022 Chronic Nausea and vomiting (2 sources) Nausea and vomiting; Translations: [Nausea with vomiting, unspecified] 01-05-2025 Episodic Other complications of (4 sources) History of pre-eclampsia; Translations: [Supervision of with other poor reproductive or obstetric history, unspecified trimester] Onset: 04-10-2025 04-10-2025 Episodic Other connective tissue disease (1 source) Pain of bilateral upper limbs; Translations: [Pain in right arm] Episodic Other ear and sense organ disorders (4 sources) Tinnitus, left ear; Translations: [TINNITUS LEFT EAR] Onset: 03-19-2020 Episodic Other female genital disorders (2 sources) Vaginal discharge; Translations: [Other specified noninflammatory disorders of vagina] 01-05-2025 Episodic Other and delivery including normal (14 sources) ; Translations: [Encounter for supervision of normal , unspecified, unspecified trimester] Onset: 01-20-2024 01-20-2024 Episodic Other screening for suspected conditions (not mental disorders or infectious disease) (5 sources) Cancer cervix screening status; Translations: [Encounter for screening for malignant neoplasm of cervix] Episodic Other upper respiratory disease (2 sources) Allergic rhinitis; Translations: [Allergic rhinitis, unspecified] Chronic Other upper respiratory disease (4 sources) Seasonal allergy; Translations: [Other seasonal allergic rhinitis] Onset: 02-13-2020 08-25-2022 Chronic Other upper respiratory disease (1 source) Allergic rhinitis, unspecified; Translations: [Allergic rhinitis, unspecified] Onset: 07-21-2022 Chronic Residual codes; unclassified (2 sources) Gestation period, 12 weeks; Translations: [12 weeks gestation of ] 01-05-2025 Episodic Residual codes; unclassified (2 sources) Gestation period, 16 weeks; Translations: [16 weeks gestation of ] 02-02-2025 Episodic Residual codes; unclassified (2 sources) Gestation period, 20 weeks; Translations: [20 weeks gestation of ] 03-02-2025 Episodic Residual codes; unclassified (2 sources) Gestation period, 25 weeks; Translations: [25 weeks gestation of ] 04-10-2025 Episodic Residual codes; unclassified (4 sources) H/O: hypertension; Translations: [Personal history of other complications of , childbirth and the puerperium] Onset: 04-10-2025 04-10-2025 Episodic Skin and subcutaneous tissue infections (2 sources) Local infection of the skin and subcutaneous tissue, unspecified; Translations: [Local infection of the skin and subcutaneous tissue, unspecified] Onset: 08-27-2023 Episodic Unclassified (2 sources) Chronic Care Visit (CCV); Translations: [Chronic Care Visit (CCV)] Onset: 01-16-2023 Unclassified (2 sources) Gynecologic Exam; Translations: [Gynecologic Exam] Onset: 08-25-2022 Past or Other Problems Problem Classification Problem Date Documented Da te Episodic/Chronic Anxiety disorders (3 sources) Anxiety; Translations: [Anxiety disorder, unspecified] Onset: 06-22-2019 Resolved: 08-25-2022 08-25-2022 Chronic Other connective tissue disease (1 source) Pain in right arm; Translations: [Pain in right arm] Onset: 07-21-2022 Episodic Other connective tissue disease (1 source) Pain in left arm; Translations: [Pain in left arm] Onset: 07-21-2022 Episodic Other upper respiratory disease (3 sources) Seasonal allergic rhinitis; Translations: [Other seasonal allergic rhinitis] Onset: 01-04-2021 Resolved: 08-25-2022 08-25-2022 Chronic Residual codes; unclassified (3 sources) Insomnia; Translations: [Insomnia, unspecified] Onset: 06-22-2019 08-25-2022 Episodic Results Test Name Value Interpretation Reference Range Facil ity US OB LIMITED 1+ FETUSESon 0 04-10-2025 US OB LIMITED 1+ FETUSES FINDINGS: Single viable intrauterine , cephalic presentation, normal cardiac and activity, heart rate 143 bpm. Adequate visualization appropriate for age of the craniofacial region, 4 chamber heart outflow tracts. IMPRESSION: Normal craniofacial and cardiac, outflow tract anatomy TRANSCRIBED BY: ELECTRONICALLY SIGNED BY: Oseas Martines MD Normal Not Available Comment on above: Order Comment: US OB INCOMPLETE ANATOMY Estimated Date of Delivery: 07/20/25 Gestational Age as of 03/14/2025: 21w5d Urinalysis macro (dipstick) panel (U)on 04-10-2025 Bilirubin, UA Negative Negative - 4(70) +++ mg/dL [facility] Blood, UA Negative Negative - 50 Hernan/mcL [facility] Clarity, UA Clear [facility] Color, UA Yellow [facility] Glucose, UA Negative Negative - 1999(110) ++++ mg/dL [facility] Interpretation and review of laboratory results Normal [facility] Ketones, UA Negative Negative - 160(16) ++++ mg/dL [facility] Leukocytes, UA Negative Negative - 500+++ Deana/mcL [facility] Nitrite, UA Negative Negative - Positive [facility] pH, UA 6 5 - 9 [facility] Protein, UA Negative Negative - 2000(20) ++++ mg/dL [facility] Spec Grav, UA 1.015 1 - 1.03 [facility] Urobilinogen, UA 1.0 0.2 - 12 mg/dL [facility] AFP, SERUM, OPEN SPINA BIFID Aon 03-04-2025 AFP MOM 0.55 . [facility] AFP VALUE 25.7 ng/mL . [facility] COMMENT: Comment . [facility] Comment on above: Sidra Da Silva , Ph.D., [facility] Director References: Available Upon Request. Multiples Of Median Cutoffs For AFP Elevations Root 2.5 Black 2.8 IDD 2.0 Twins 4.5 Abbreviation Definitions IDD - Insulin Dep Diabetes OSBR - Open Spina Bifida Risk For further inquiries contact [facility] at [phone]. This test was developed and its performance characteristics determined by [employer]. It has not been cleared or approved by the Food and Drug Administration. Performed at: [facility] [address] [place], [place] [id number] Director Of Safety: Basilia Taylor [facility], Phone: [phone] GEST. AGE ON COLLECTION DATE 20.0 . weeks [facility] GESTAT. AGE BASED ON LMP . [facility] Comment on above: Recalculations are n ot recommended when gestational dating by LMP and ultrasound are within 10 days. INSULIN DEP DIABETES No . [facility] INTERPRETATION Comment . [facility] Comment on above: Interpretation: Scre en Negative This result is screen negative for [...] Customer Services to discuss available options. The [employer] recommends amniocentesis be offered to women age 35 and older. [age] [facility] MULTIPLE GESTATION No . [facility] [address] [place] [id number] . [facility] RACE . [facility] RESULTS Report . [facility] TEST RESULTS: Negative . [facility] WEIGHT 206 . lbs [facility] N N LMP [phone] [id number] N 1 Y 206 N N N N N White/ [facility] US OB 14+ WEEKS ANATOMY SCAN on 03-02-2025 US OB 14+ WEEKS ANATOMY SCAN EXAM: US OB 14+ WEEKS ANATOMY SCAN [...] II, MD, PHD at 05-Mar-2025 10:03:06 PM [facility] Normal Not Available Comment on above: Order Comment: US OB ANATOMY SINGLE W US OB CERVICAL LENGTH Estimated Date of Delivery: 07/20/25 Gestational Age as of 02/02/2025: 16w0d Urinalysis macro (dipstick) panel (U)on 03-02-2025 Bilirubin, UA Negative Negative - 4(70) +++ mg/dL [facility] Blood, UA Negative Negative - 50 Hernan/mcL [facility] Clarity, UA Clear [facility] Color, UA Yellow [facility] Glucose, UA Negative Negative - 2000(110) ++++ mg/dL [facility] Interpretation and review of laboratory results Abnormal [facility] Ketones, UA Negative Negative - 160(16) ++++ mg/dL [facility] Leukocytes, UA Negative Negative - 500+++ Deana/mcL [facility] Nitrite, UA Negative Negative - Positive [facility] pH, UA 7 5 - 9 [facility] Protein, UA Negative Negative - 2000(20) ++++ mg/dL [facility] Spec Grav, UA 1.015 1 - 1.03 [facility] Urobilinogen, UA 1.0 0.2 - 12 mg/dL [facility] Urinalysis macro (dipstick) panel (U)on 02-02-2025 Bilirubin, UA Negative Negative - 4(70) +++ mg/dL [facility] Blood, UA Negative Negative - 50 Hernan/mcL [facility] Clarity, UA Clear [facility] Color, UA Claudia [facility] Glucose, UA Negative Negative - 1999(110) ++++ mg/dL [facility] Interpretation and review of laboratory results Abnormal [facility] Ketones, UA Negative Negative - 160(16) ++++ mg/dL [facility] Leukocytes, UA Negative Negative - 500+++ Deana/mcL [facility] Nitrite, UA Negative Negative - Positive [facility] pH, UA 6.5 5 - 9 [facility] Protein, UA Positive Negative - 1999(20) ++++ mg/dL [facility] Comment on above: 30 Spec Grav, UA 1.02 1 - 1.03 [facility] Urobilinogen, UA 0.2 0.2 - 12 mg/dL [facility] IGP,APTIMA HPV,AGE GDLNon AGE GDLN ACOG TESTING Note . [facility] Comment on above: TESTS RESULT FLAG UN ITS REF RANGE LAB Clinician Provided Cytology Information Source.............Cervix;Endocervix No. of containers..01 ThinPrep Vial Age Algo ACOG Amparo... FLAG LEGEND: L-Low Normal,H-High Normal,LL-Alert Low,HH-Alert High <-Panic Low,>-Panic High,A-Abnormal,AA-Critical Abnormal Performed at: 01 =G [facility] [place] [address] [facility] [place] [address] Analia Valencia MD, IGP, RFX APTIMA HPV ASCU Note . [facility] Comment on above: TESTS RESULT FLAG UN ITS REF RANGE LAB DIAGNOSIS: 02 NEGATIVE FOR INTRAEPITHELIAL LESION OR MALIGNANCY. Specimen adequacy: 02 Satisfactory for evaluation. No endocervical component is identified. Performed by: Oz Gonzalez Senior Controls Technician ([facility]) . 02 Note: Note 02 The Pap smear is a screening test designed to aid in the detection of premalignant and malignant conditions of the uterine cervix. It is not a diagnostic procedure and should not be used as the sole means of detecting cervical cancer. Both false-positive and false-negative reports do occur. Test Methodology: Note 02 This liquid based ThinPrep(R) pap test was screened with the use of an image guided system. . 02 The HPV DNA reflex criteria were not met with this specimen result therefore, no HPV testing was performed. FLAG LEGEND: L-Low Normal,H-High Normal,LL-Alert Low,HH-Alert High <-Panic Low,>-Panic High,A-Abnormal,AA-Critical Abnormal Performed at: 02 WB [facility] [place] [address] [facility] [place] [address] Analia Valencia MD, Performed at: =G - [facility] [id number] Director Of Safety: Analia Valencia MD, Phone: [phone] Performed at: - [facility] [id number] Director Of Safety: Analia Valencia MD, Phone: [phone] BRUSH-SPATULA CERVIX ENDOCERVIX [facility] RECURRENT VAGINITIS (HTRX)on 01-06-2025 ATOPOBIUM VAGINAE 0 [facility] ATOPOBIUM VAGINAE Not detected [facility] BVAB 2,3 (BACTERIAL VAGINOSIS ASSOCIATED BACTERIA 2, 3); MOBILUNCUS SPP 0 [facility] BVAB 2,3 (BACTERIAL VAGINOSIS ASSOCIATED BACTERIA 2, 3); MOBILUNCUS SPP Not detected [facility] MARTHA ALBICANS, PARAPSILOSIS, TROPICALIS 0 [facility] MARTHA ALBICANS, PARAPSILOSIS, TROPICALIS Not detected [facility] MARTHA GLABRATA 0 [facility] MARTHA GLABRATA Not detected [facility] MARTHA KRUSEI 0 [facility] MARTHA KRUSEI Not detected [facility] CHLAMYDIA TRACHOMATIS 0 [facility] CHLAMYDIA TRACHOMATIS Not detected [facility] GARDNERELLA VAGINALIS 0 [facility] GARDNERELLA VAGINALIS Not detected N [facility] MEGASPHAERA (TYPES 1, 2) 0 [facility] MEGASPHAERA (TYPES 1, 2) Not detected [facility] MYCOPLASMA GENITALIUM 0 [facility] MYCOPLASMA GENITALIUM Not detected [facility] NEISSERIA GONORRHOEAE 0 [facility] NEISSERIA GONORRHOEAE Not detected N [facility] TRICHOMONAS VAGINALIS 0 [facility] TRICHOMONAS VAGINALIS Not detected N [facility] Urinalysis macro (dipstick) panel (U)on 01-05-2025 Bilirubin, UA Negative Negative - 4(70) +++ mg/dL [facility] Blood, UA Negative Negative - 50 Hernan/mcL [facility] Clarity, UA Clear [facility] Color, UA Yellow [facility] Glucose, UA Negative Negative - 2000(110) ++++ mg/dL [facility] Interpretation and review of laboratory results Abnormal [facility] Ketones, UA Negative Negative - 160(16) ++++ mg/dL [facility] Leukocytes, UA Negative Negative - 500+++ Deana/mcL [facility] Nitrite, UA Negative Negative - Positive [facility] pH, UA 6.5 5 - 9 [facility] Protein, UA Negative Negative - 1999(20) ++++ mg/dL [facility] Spec Grav, UA 1.025 1 - 1.03 [facility] Urobilinogen, UA 1.0 0.2 - 12 mg/dL [facility] ALL TYPE AND SCREENon 2024 ABO and Rh group Nom (Bld) Blood group O Rh(D) positive [facility] ( test) Ql (U)o n 12-22-2024 Interpretation and review of laboratory results Normal [facility] Preg Test, Ur Positive Negative [facility] MLR HEMOGLOBIN A1Con 025 Glucose [Mass/Vol] 100 mg/dL [facility] HbA1c (Bld) [Mass fraction] 5.1 % 4.5 - 6.2 % [facility] Comment on above: ADA RECOMMENDED LIMI T 4.0 - 6.0 ADA THERAPEUTIC TARGET < 7.0 ACTION SUGGESTED > 7.0 [facility] US OB TRANSVAGINALon 025 US OB TRANSVAGINAL EXAM: US OB TRANSVAGINAL HISTORY: Dating. COMPARISON: None available. TECHNIQUE: Two-dimensional transvaginal grayscale ultrasound imaging of the pelvis was performed. Color Doppler evaluation of the ovaries was also performed. FINDINGS: The uterus demonstrates a normal homogeneous echotexture. The cervix measures 3.8 cm in length and the cervical os is closed. The right ovary measures 3.1 x 2.7 x 3.2 cm and demonstrates a normal echotexture. There is normal color Doppler flow. There is a presumed corpus luteal cyst visualized. The left ovary is not visualized. No fluid is present within the cul-de-sac. There is a single, live intrauterine gestation identified with a heart rate of 181 beats per minute and a crown-rump length measurement of 2.8 cm, correlating to a gestational age of 9 weeks 4 days (+/- 6 days). There is no subchorionic hemorrhage visualized. A yolk sac is visualized. IMPRESSION: 1. Single, live intrauterine gestation 10 weeks, 0 days by LMP. Today's ultrasound measurements correlate with a gestational age of 9 weeks 4 days (+/- 6 days). EVA by today's ultrasound is 07/23/2025. 2. tachycardia. A short-term follow-up ultrasound is recommended to monitor heart rate. 3. Normal color Doppler evaluation of the right ovary, the left ovary was not visualized. Interpreted by: Electronically signed by DELFINO ZENDEJAS II, MD, PHD at 24-Dec-2024 06:51:11 PM [facility] Normal Not Available Comment on above: Order Comment: US OB TRANSVAGINAL No LMP recorded. Urinalysis macro (dipstick) panel (U)on 12-22-2024 Bilirubin, UA Negative Negative - 4(70) +++ mg/dL [facility] Blood, UA Negative Negative - 50 Hernan/mcL [facility] Clarity, UA Clear [facility] Color, UA Yellow [facility] Glucose, UA Negative Negative - 2000(110) ++++ mg/dL [facility] Interpretation and review of laboratory results Normal [facility] Ketones, UA Negative Negative - 160(16) ++++ mg/dL [facility] Leukocytes, UA Negative Negative - 500+++ Deana/mcL [facility] Nitrite, UA Negative Negative - Positive [facility] pH, UA 6 5 - 9 [facility] Protein, UA Negative Negative - 2000(20) ++++ mg/dL [facility] Spec Grav, UA 1.025 1 - 1.03 [facility] Urobilinogen, UA 1.0 0.2 - 12 mg/dL [facility] Disch Summon 01-23-2024 Disch Summ 28 YO P1 WHO UNDERWENT FAVD WITH UNREMARKABLE COURSE AUTHENTICATED BY FRANKIE ARTIS, ON 01/23/2024 05:56:57 Normal [facility] HEMOGLOBIN AND HEMATOCRITon 01-23-2024 Hematocrit (Bld) [Volume fraction] 27.7 % Low 36.0-46.0 [facility] Comment on above: Performed By: #### 8 7120 #### [facility] [address] [place] [address] Donavan Shafer M.D. [id number] Hemoglobin (Bld) [Mass/Vol] 9.0 g/dL Low 12.0-16.0 [facility] Comment on above: Performed By: #### 4 2930 #### [facility] [address] [place] [address] Donavan Shafer M.D. [id number] Hemoglobin and Hematocrit pa ly (Bld)on 01-23-2024 Hematocrit (Bld) [Volume fraction] 27.7 % Low 36.0 - 46.0 % [facility] Hemoglobin (Bld) [Mass/Vol] 9.0 g/dL Low 12.0 - 16.0 g/dL [facility] Interpretation and review of laboratory results Abnormal [facility] CBCon 01-22-2024 AUTO NRBC 0.0 % Normal [facility] Comment on above: Performed By: #### 4 2348 #### [facility] [address] [place] [address] Donavan Shafer M.D. [id number] AUTO NRBC ABS COUNT 0.00 K/mcL Normal 0.00-0.00 [facility] Comment on above: Performed By: #### 4 5959 #### [facility] [address] [place] [address] Donavan Shafer M.D. [id number] Erythrocyte distribution width (RBC) [Ratio] 13.5 % Normal 11.6-14.8 [facility] Comment on above: Performed By: #### 4 6352 #### [facility] [address] [place] [address] Donavan Shafer M.D. [id number] Hematocrit (Bld) [Volume fraction] 29.7 % Low 36.0-46.0 [facility] Comment on above: Performed By: #### 4 1574 #### [facility] [address] [place], [place] [id number] Donavan Shafer M.D. [id number] Hemoglobin (Bld) [Mass/Vol] 10.0 g/dL Low 12.0-16.0 [facility] Comment on above: Performed By: #### 4 6972 #### [facility] [address] [place], [place] [address] Donavan Shafer M.D. [id number] MCH (RBC) [Entitic mass] 31.4 pg Normal 26.0-34.0 [facility] Comment on above: Performed By: #### 4 6391 #### [facility] [address] [place] [address] Donavan Shafer M.D. [id number] MCV (RBC) [Entitic vol] 93.4 fL Normal 80.0-100.0 [facility] Comment on above: Performed By: #### 4 6391 #### [facility] [address] [place] [address] Donavan Shafer M.D. [id number] MEAN CORPUSCULAR HEMOGLOBIN CONC 33.7 g/dL Normal 31.0-37.0 [facility] Comment on above: Performed By: #### 4 6359 #### [facility] [address] [place] [address] Donavan Shafer M.D. [id number] Platelet mean volume (Bld) [Entitic vol] 12.6 fL High 9.4-12.4 [facility] Comment on above: Performed By: #### 4 6391 #### [facility] [address] [place], [place] [id number] Donavan Shafer M.D. [id number] Platelets (Bld) [#/Vol] 101 10*3/uL Low 150-400 [facility] Comment on above: Performed By: #### 4 6342 #### [facility] [address] [place], [place] [address] Donavan Shafer M.D. [id number] RBC (Bld) [#/Vol] 3.18 10*6/uL Low 4.00-5.20 [facility] Comment on above: Performed By: #### 4 6399 #### [facility] [address] [place], [place] [address] Donavan Shafer M.D. [id number] WBC (Bld) [#/Vol] 20.43 10*3/uL High 4.50-11.00 [facility] Comment on above: Performed By: #### 4 6391 #### [facility] [address] [place], [place] [address] Donavan Shafer M.D. [id number] CBC panel Auto (Bld)on 01-21 Erythrocyte distribution width (RBC) [Entitic vol] 13.5 % 11.6 - 14.8 % [facility] Hematocrit (Bld) [Volume fraction] 29.7 % Low 36.0 - 46.0 % [facility] Hemoglobin (Bld) [Mass/Vol] 10.0 g/dL Low 12.0 - 16.0 g/dL [facility] Interpretation and review of laboratory results Abnormal [facility] MCH (RBC) [Entitic mass] 31.4 pg 26.0 - 34.0 pg [facility] MCHC (RBC) [Mass/Vol] 33.7 g/dL 31.0 - 37.0 g/dL [facility] MCV (RBC) [Entitic vol] 93.4 fL 80.0 - 100.0 fL [facility] Nucleated RBC (Bld) [#/Vol] 0.00 10*3/uL [facility] Nucleated RBC/100 WBC (Bld) [Ratio] 0.0 % [facility] Platelet mean volume (Bld) [Entitic vol] 12.6 fL High 9.4 - 12.4 fL [facility] Platelets (Bld) [#/Vol] 101 10*3/uL Low [facility] RBC (Bld) [#/Vol] 3.18 10*6/uL Low [facility] ealth WBC (Bld) [#/Vol] 20.43 10*3/uL High [facility] APTTon 01-21-2024 aPTT Coag (Bld) [Time] 28 s [facility] aPTT Coag (Bld) [Time] 28 s Normal 23-34 [facility] Comment on above: Order Comment: Thera peutic range for APTT's is 68 - 104 seconds Performed By: #### 4 2391 #### [facility] [address] [place] [address] Donavan Shafer M.D. [id number] CBC Auto Differentialon 01-05 Basophils (Bld) [#/Vol] 0.03 10*3/uL [facility]/100 WBC (Bld) 0.3 % [facility] Eosinophils (Bld) [#/Vol] 0.04 10*3/uL [facility] Eosinophils/100 WBC (Bld) 0.4 % [facility] Erythrocyte distribution width (RBC) [Entitic vol] 13.9 % 11.6 - 14.8 % [facility] Hematocrit (Bld) [Volume fraction] 33.6 % Low 36.0 - 46.0 % [facility] Hemoglobin (Bld) [Mass/Vol] 11.4 g/dL Low 12.0 - 16.0 g/dL [facility] Immature granulocytes (Bld) [#/Vol] 0.06 10*3/uL [facility] Immature granulocytes/100 WBC (Bld) 0.60 % [facility] Comment on above: The IG parameter is the percentage of metamyelocytes, myelocytes and promyelocytes. An immature granulocyte count (IG) of 1% or more suggests the possibility of infection, an IG count of 3% is very likely related to an infection. Interpretation and review of laboratory results Abnormal [facility] Lymphocytes (Bld) [#/Vol] 1.00 10*3/uL [facility] Lymphocytes/100 WBC (Bld) 9.3 % [facility] MCH (RBC) [Entitic mass] 31.6 pg 26.0 - 34.0 pg [facility] MCHC (RBC) [Mass/Vol] 33.9 g/dL 31.0 - 37.0 g/dL [facility] MCV (RBC) [Entitic vol] 93.1 fL 80.0 - 100.0 fL [facility] Monocytes (Bld) [#/Vol] 1.11 10*3/uL High [facility] Monocytes/100 WBC (Bld) 10.3 % [facility] Neutrophils (Bld) [#/Vol] 8.52 10*3/uL High [facility] Neutrophils/100 WBC (Bld) 79.1 % [facility] Nucleated RBC (Bld) [#/Vol] 0.00 10*3/uL [facility] Nucleated RBC/100 WBC (Bld) [Ratio] 0.0 % [facility] Platelet mean volume (Bld) [Entitic vol] 12.3 fL 9.4 - 12.4 fL [facility] Platelets (Bld) [#/Vol] 128 10*3/uL Low [facility] RBC (Bld) [#/Vol] 3.61 10*6/uL Low [facility] ealth WBC (Bld) [#/Vol] 10.76 10*3/uL [facility] CBC WITH AUTO DIFFERENTIALon 01-21-2024 AUTO NRBC 0.0 % Normal [facility] Comment on above: Performed By: #### 4 6363 #### [facility] [address] [place] [address] Donavan Shafer M.D. [id number] AUTO NRBC ABS COUNT 0.00 K/mcL Normal 0.00-0.00 [facility] Comment on above: Performed By: #### 4 3315 #### [facility] [address] [place] [address] Donavan Shafer M.D. [id number] BASOPHILS ABSOLUTE COUNT 0.03 K/mcL Normal 0.00-0.30 [facility] Comment on above: Performed By: #### 4 6316 #### [facility] [address] [place] [address] Donavan Shafer M.D. [id number] Basophils/100 WBC (Bld) 0.3 % Normal [facility] Comment on above: Performed By: #### 4 6344 #### [facility] [address] [place] [address] Donavan Shafer M.D. [id number] Eosinophils (Bld) [#/Vol] 0.04 10*3/uL Normal 0.00-0.50 [facility] Comment on above: Performed By: #### 4 6336 #### [facility] [address] [place] [address] Donavan Shafer M.D. [id number] Eosinophils/100 WBC (Bld) 0.4 % Normal [facility] Comment on above: Performed By: #### 4 6348 #### [facility] [address] [place] [address] Donavan Shafer M.D. [id number] Erythrocyte distribution width (RBC) [Ratio] 13.9 % Normal 11.6-14.8 [facility] Comment on above: Performed By: #### 4 6382 #### [facility] [address] [place] [address] Donavan Shafer M.D. [id number] Hematocrit (Bld) [Volume fraction] 33.6 % Low 36.0-46.0 [facility] Comment on above: Performed By: #### 4 6329 #### [facility] [address] [place] [address] Donavan Shafer M.D. [id number] Hemoglobin (Bld) [Mass/Vol] 11.4 g/dL Low 12.0-16.0 [facility] Comment on above: Performed By: #### 4 2901 #### [facility] [address] [place] [address] Donavan Shafer M.D. [id number] IG ABSOLUTE 0.06 K/mcL Normal 0.00-0.30 [facility] Comment on above: Performed By: #### 4 4103 #### [facility] [address] [place] [address] Donavan Shafer M.D. [id number] IG PERCENT 0.60 % Normal [facility] Comment on above: Result Comment: The IG parameter is the percentage of metamyelocytes, myelocytes and promyelocytes. An immature granulocyte count (IG) of 1% or more suggests the possibility of infection, an IG count of 3% is very likely related to an infection. Performed By: #### 4 0922 #### [facility] [address] [place] [address] Donavan Shafer M.D. [id number] Lymphocytes (Bld) [#/Vol] 1.00 10*3/uL Normal 0.90-4.00 [facility] Comment on above: Performed By: #### 4 6391 #### [facility] [address] [place] [address] Donavan Shafer M.D. [id number] Lymphocytes/100 WBC (Bld) 9.3 % Normal [facility] Comment on above: Performed By: #### 4 6391 #### [facility] [address] [place] [address] Donavan Shafer M.D. [id number] MCH (RBC) [Entitic mass] 31.6 pg Normal 26.0-34.0 [facility] Comment on above: Performed By: #### 4 6347 #### [facility] [address] [place] [address] Donavan Shafer M.D. [id number] MCV (RBC) [Entitic vol] 93.1 fL Normal 80.0-100.0 [facility] Comment on above: Performed By: #### 4 6352 #### [facility] [address] [place] [address] Donavan Shafer M.D. [id number] MEAN CORPUSCULAR HEMOGLOBIN CONC 33.9 g/dL Normal 31.0-37.0 [facility] Comment on above: Performed By: #### 4 6300 #### [facility] [address] [place] [address] Donavan Shafer M.D. [id number] Monocytes (Bld) [#/Vol] 1.11 10*3/uL High 0.30-0.90 [facility] Comment on above: Performed By: #### 4 7574 #### [facility] [address] [place] [address] Donavan Shafer M.D. [id number] Monocytes/100 WBC (Bld) 10.3 % Normal [facility] Comment on above: Performed By: #### 4 6391 #### [facility] [address] [place] [address] Donavan Shafer M.D. [id number] NEUTROPHILS ABSOLUTE COUNT 8.52 K/mcL High 1.70-7.00 [facility] Comment on above: Performed By: #### 4 6391 #### [facility] [address] [place], [place] [address] Donavan Shafer M.D. [id number] Neutrophils/100 WBC (Bld) 79.1 % Normal [facility] Comment on above: Performed By: #### 4 6391 #### [facility] [address] [place], [place] [address] Donavan Shafer M.D. [id number] Platelet mean volume (Bld) [Entitic vol] 12.3 fL Normal 9.4-12.4 [facility] Comment on above: Performed By: #### 4 6391 #### [facility] [address] [place], [place] [address] Donavan Shafer M.D. [id number] Platelets (Bld) [#/Vol] 128 10*3/uL Low 150-400 [facility] Comment on above: Performed By: #### 4 6391 #### [facility] [address] [place] [address] Donavan Shafer M.D. [id number] RBC (Bld) [#/Vol] 3.61 10*6/uL Low 4.00-5.20 [facility] Comment on above: Performed By: #### 4 6367 #### [facility] [address] [place], [place] [address] Donavan Shafer M.D. [id number] WBC (Bld) [#/Vol] 10.76 10*3/uL Normal 4.50-11.00 [facility] Comment on above: Performed By: #### 4 6391 #### [facility] [address] [place], [place] [address] Donavan Shafer M.D. [id number] FIBRINOGENon 01-21-2024 FIBRINOGEN LEVEL 541 mg/dL High 224-483 [facility] Comment on above: Performed By: #### 4 8052 #### [facility] [address] [place] [address] Donavan Shafer M.D. [id number] FibrinogenOrdered By: Adelaida Gaspar on 01-21-2024 Fibrinogen Coag (PPP) [Mass/Vol] 541 mg/dL High 224 - 483 mg/dL [facility] Fibrinogen Coag (PPP) [Mass/ Vol]Ordered By: Adelaida Gaspar on 01-21-2024 Interpretation and review of laboratory results Abnormal [facility] INR Coag (PPP) [Relative [place] e]on 01-21-2024 Interpretation and review of laboratory results Normal [facility] PT Coag (PPP) [Time] 13.0 s [facility] During the induction phase of oral anticoagulation, the INR may not reflect the anticoagulation status of the patient. Therapeutic ranges for INR's are: Most clinical situations: INR 2.0-3.0 Mechanical Prosthetic Valve: INR 2.5-3.5 Critical: INR >5.0 [facility] PT/INRon 01-21-2024 INR Coag (PPP) [Relative time] 1.0 {INR} 0.8 - 1.1 [facility] INR Coag (PPP) [Relative time] 1.0 {INR} Normal 0.8-1.1 [facility] Comment on above: Order Comment: Stella bajwa the induction phase of oral anticoagulation, the INR may not reflect the anticoagulation status of the patient. Therapeutic ranges for INR's are:Most clinical situations: INR 2.0-3.0Mechanical Prosthetic Valve: INR 2.5-3.5Critical: INR >5.0 Performed By: #### 4 8052 #### [facility] [address] [place] [address] Donavan Shafer M.D. [id number] PT Coag (PPP) [Time] 13.0 s Normal 11.8-14.3 [facility] Comment on above: Order Comment: Stella bajwa the induction phase of oral anticoagulation, the INR may not reflect the anticoagulation status of the patient. Therapeutic ranges for INR's are:Most clinical situations: INR 2.0-3.0Mechanical Prosthetic Valve: INR 2.5-3.5Critical: INR >5.0 Performed By: #### 4 [id number] #### [facility] [address] [place] [address] 43654 Donavan Shafer M.D. [id number] aPTT Coag (Bld) [Time]on Interpretation and review of laboratory results Normal [facility] Therapeutic range for APTT's is 68 - 104 seconds [facility] ABORH VERIFICATIONon 024 ABO and Rh group Nom (Bld) Blood group O Rh(D) positive Normal [facility] Comment on above: Performed By: #### 4 [id number] #### [facility] [address] [place], [place] [id number] Donavan Shafer M.D. [id number] ABO and Rh group Nom (Bld) ABO/Rh Verification Normal [facility] Comment on above: Result Comment: Melita ent's ABO/Rh is verified. Performed By: #### 4 [id number] #### [facility] [address] [place] [address]84[address] Donavan Shafer M.D. [id number] ABOR Verificationon 024 ABO and Rh group Nom (Bld) Blood group O Rh(D) positive [facility] ABO and Rh group Nom (Bld) ABO/Rh Verification [facility] Comment on above: Patient's ABO/Rh is verified. [facility] APTTon 01-20-2024 aPTT Coag (Bld) [Time] 27 s [facility] aPTT Coag (Bld) [Time] 27 s Normal 23-34 [facility] Comment on above: Order Comment: Stella bajwa the induction phase of oral anticoagulation, the INR may not reflect the anticoagulation status of the patient. Therapeutic ranges for INR's are: Most clinical situations: INR 2.0-3.0 Mechanical Prosthetic Valve: INR 2.5-3.5 Critical: INR >5.0 Performed By: #### 4 [id number] #### [facility] [address] [place] [address] 61657 Donavan Shafer M.D. [id number] Blood type and Indirect anti body screen panel (Bld)on 01-20-2024 ABO and Rh group Nom (Bld) Blood group O Rh(D) positive [facility] Blood group antibody screen Ql Negative [facility] Specimen Expires 01/23/2024 23:59 EST [facility] CBCon 01-20-2024 AUTO NRBC 0.0 % Normal [facility] Comment on above: Performed By: #### 4 [id number] #### [facility] [address] [place] [address] 42523 Donavan Shafer M.D. [id number] AUTO NRBC ABS COUNT 0.00 K/mcL Normal 0.00-0.00 [facility] Comment on above: Performed By: #### 4 [id number] #### [facility] [address] [place] [address] 52263 Donavan Shafer M.D. [id number] Erythrocyte distribution width (RBC) [Ratio] 14.0 % Normal 11.6-14.8 [facility] Comment on above: Performed By: #### 4 [id number] #### [facility] [address] [place] [address] 81328 Donavan Shafer M.D. [id number] Hematocrit (Bld) [Volume fraction] 36.3 % Normal 36.0-46.0 [facility] Comment on above: Performed By: #### 4 [id number] #### [facility] [address] [place] [address] 9[address]13 Donavan Shafer M.D. [id number] Hemoglobin (Bld) [Mass/Vol] 12.2 g/dL Normal 12.0-16.0 [facility] Comment on above: Performed By: #### 4 [id number] #### [facility] [address] [place] [address] Donavan Shafer M.D. [id number] MCH (RBC) [Entitic mass] 31.3 pg Normal 26.0-34.0 [facility] Comment on above: Performed By: #### 4 [id number] #### [facility] [address] [place] [address] Donavan Shafer M.D. [id number] MCV (RBC) [Entitic vol] 93.1 fL Normal 80.0-100.0 [facility] Comment on above: Performed By: #### 4 [id number] #### [facility] [address] [place] [address] Donavan Shafer M.D. [id number] MEAN CORPUSCULAR HEMOGLOBIN CONC 33.6 g/dL Normal 31.0-37.0 [facility] Comment on above: Performed By: #### 4 [id number] #### [facility] [address] [place] [address] Donavan Shafer M.D. [id number] Platelet mean volume (Bld) [Entitic vol] 12.1 fL Normal 9.4-12.4 [facility] Comment on above: Performed By: #### 4 [id number] #### [facility] [address] [place] [address] Donavan Shafer M.D. [id number] Platelets (Bld) [#/Vol] 129 10*3/uL Low 150-400 [facility] Comment on above: Performed By: #### 4 [id number] #### [facility] [address] [place] [address] Donavan Shafer M.D. [id number] RBC (Bld) [#/Vol] 3.90 10*6/uL Low 4.00-5.20 [facility] Comment on above: Performed By: #### 4 [id number] #### [facility] [address] [place] [address] 94367 Donavan Shafer M.D. [id number] WBC (Bld) [#/Vol] 10.05 10*3/uL Normal 4.50-11.00 [facility] Comment on above: Performed By: #### 4 [id number] #### [facility] [address] [place] [address] 49545 Donavan Shafer M.D. [id number] CBC panel Auto (Bld)on 01-19 Erythrocyte distribution width (RBC) [Entitic vol] 14.0 % 11.6 - 14.8 % [facility] Hematocrit (Bld) [Volume fraction] 36.3 % 36.0 - 46.0 % [facility] Hemoglobin (Bld) [Mass/Vol] 12.2 g/dL 12.0 - 16.0 g/dL [facility] Interpretation and review of laboratory results Abnormal [facility] MCH (RBC) [Entitic mass] 31.3 pg 26.0 - 34.0 pg [facility] MCHC (RBC) [Mass/Vol] 33.6 g/dL 31.0 - 37.0 g/dL [facility] MCV (RBC) [Entitic vol] 93.1 fL 80.0 - 100.0 fL [facility] Nucleated RBC (Bld) [#/Vol] 0.00 10*3/uL [facility] Nucleated RBC/100 WBC (Bld) [Ratio] 0.0 % [facility] Platelet mean volume (Bld) [Entitic vol] 12.1 fL 9.4 - 12.4 fL [facility] Platelets (Bld) [#/Vol] 129 10*3/uL Low [facility] RBC (Bld) [#/Vol] 3.90 10*6/uL Low [facility] ealth WBC (Bld) [#/Vol] 10.05 10*3/uL [facility] COMPREHENSIVE METABOLIC PANE Gian 01-20-2024 Albumin [Mass/Vol] 3.5 g/dL Normal 3.2-5.2 [facility] Comment on above: Order Comment: [facility] has implemented the eGFR calculation approach that does not have a coefficient for race that conforms to the NKF-ASN Task Force Recommendations. Performed By: #### 4 [id number] #### [facility] [address] [place], [place] [id number] Donavan Shafer M.D. [id number] ALP [Catalytic activity/Vol] 163 U/L High 40-140 [facility] Comment on above: Order Comment: [facility] has implemented the eGFR calculation approach that does not have a coefficient for race that conforms to the NKF-ASN Task Force Recommendations. Performed By: #### 4 [id number] #### [facility] [address] [place], [place] [id number] Donavan Shafer M.D. [id number] ALT [Catalytic activity/Vol] 14 U/L Normal 0-35 U/L [facility] Comment on above: Order Comment: [facility] has implemented the eGFR calculation approach that does not have a coefficient for race that conforms to the NKF-ASN Task Force Recommendations. Performed By: #### 4 [id number] #### [facility] [address] [place], [place] [id number] Donavan Shafer M.D. [id number] Anion gap [Moles/Vol] 16 mmol/L Normal 10-20 [facility] Comment on above: Order Comment: [facility] has implemented the eGFR calculation approach that does not have a coefficient for race that conforms to the NKF-ASN Task Force Recommendations. Performed By: #### 4 [id number] #### [facility] [address] [place], [place] [id number] Donavan Shafer M.D. [id number] AST [Catalytic activity/Vol] 18 U/L Normal 0-35 U/L [facility] Comment on above: Order Comment: [facility] has implemented the eGFR calculation approach that does not have a coefficient for race that conforms to the NKF-ASN Task Force Recommendations. Performed By: #### 4 [id number] #### [facility] [address] [place], [place] [id number] Donavan Shafer M.D. [id number] Bilirubin [Mass/Vol] 0.3 mg/dL Normal 0.0-1.3 [facility] Comment on above: Order Comment: [facility] has implemented the eGFR calculation approach that does not have a coefficient for race that conforms to the NKF-ASN Task Force Recommendations. Performed By: #### 4 [id number] #### [facility] [address] [place], [place] [address] oDnavan Shafer M.D. [id number] Calcium [Mass/Vol] 9.2 mg/dL Normal 8.4-10.2 [facility] Comment on above: Order Comment: [facility] has implemented the eGFR calculation approach that does not have a coefficient for race that conforms to the NKF-ASN Task Force Recommendations. Performed By: #### 4 [id number] #### [facility] [address] [place], [place] [address] Donavan Shafer M.D. [id number] Chloride [Moles/Vol] 107 mmol/L Normal 98-108 [facility] Comment on above: Order Comment: [facility] has implemented the eGFR calculation approach that does not have a coefficient for race that conforms to the NKF-ASN Task Force Recommendations. Performed By: #### 4 [id number] #### [facility] [address] [place] [address] 37219 Donavan Shafer M.D. [id number] Creatinine [Mass/Vol] 0.54 mg/dL Normal 0.40-1.10 [facility] Comment on above: Order Comment: [facility] has implemented the eGFR calculation approach that does not have a coefficient for race that conforms to the NKF-ASN Task Force Recommendations. Performed By: #### 4 [id number] #### [facility] [address] [place] [address] 61538 Donavan Shafer M.D. [id number] EGFR 130 mL/min/1.73 m2 Normal >=60 [facility] Comment on above: Order Comment: [facility] has implemented the eGFR calculation approach that does not have a coefficient for race that conforms to the NKF-ASN Task Force Recommendations. Result Comment: Subha mated GFR was calculated using the 2020 CKD-EPI creatinine equation. Performed By: #### 4 [id number] #### [facility] [address] [place] [address] 36770 Donavan Shafer M.D. [id number] Glucose [Mass/Vol] 84 mg/dL Normal 65-99 [facility] Comment on above: Order Comment: [facility] has implemented the eGFR calculation approach that does not have a coefficient for race that conforms to the NKF-ASN Task Force Recommendations. Performed By: #### 4 [id number] #### [facility] [address] [place] [address] 29414 Donavan Shafer M.D. [id number] HCO3 (Bld) [Moles/Vol] 19 mmol/L Low 21-32 [facility] Comment on above: Order Comment: [facility] has implemented the eGFR calculation approach that does not have a coefficient for race that conforms to the NKF-ASN Task Force Recommendations. Performed By: #### 4 [id number] #### [facility] [address] [place] [address] 95611 Donavan Shafer M.D. [id number] Potassium [Moles/Vol] 4.1 mmol/L Normal 3.5-5.1 [facility] Comment on above: Order Comment: [facility] has implemented the eGFR calculation approach that does not have a coefficient for race that conforms to the NKF-ASN Task Force Recommendations. Performed By: #### 4 [id number] #### [facility] [address] [place] [address] 28693 Donavan Shfaer M.D. [id number] Protein [Mass/Vol] 6.6 g/dL Normal 6.0-8.0 [facility] Comment on above: Order Comment: [facility] has implemented the eGFR calculation approach that does not have a coefficient for race that conforms to the NKF-ASN Task Force Recommendations. Performed By: #### 4 [id number] #### [facility] [address] [place] [address] 53362 Donavan Shafer M.D. [id number] Sodium [Moles/Vol] 138 mmol/L Normal 135-145 [facility] Comment on above: Order Comment: [facility] has implemented the eGFR calculation approach that does not have a coefficient for race that conforms to the NKF-ASN Task Force Recommendations. Performed By: #### 4 [id number] #### [facility] [address] [place] [address] 78013 Donavan Shafer M.D. [id number] Urea nitrogen [Mass/Vol] 8 mg/dL Normal 8-25 [facility] Comment on above: Order Comment: [facility] has implemented the eGFR calculation approach that does not have a coefficient for race that conforms to the NKF-ASN Task Force Recommendations. Performed By: #### 4 [id number] #### [facility] [address] [place] [address] 18125 Donavan Shafer M.D. [id number] Urea nitrogen/Creatinine [Mass ratio] 14.8 mg/mg Normal 10.0-20.0 [facility] Comment on above: Order Comment: [facility] has implemented the eGFR calculation approach that does not have a coefficient for race that conforms to the NKF-ASN Task Force Recommendations. Performed By: #### 4 [id number] #### [facility] [address] [place] [address] 36548 Donavan Shafer M.D. [id number] Comprehensive metabolic 2000 panelon 01-20-2024 Albumin [Mass/Vol] 3.5 g/dL 3.2 - 5.2 g/dL [facility] ALP [Catalytic activity/Vol] 163 U/L High 40 - 140 U/L [facility] ALT [Catalytic activity/Vol] 14 U/L 0-35 U/L [facility] Anion gap [Moles/Vol] 16 mmol/L 10 - 20 mmol/L [facility] AST [Catalytic activity/Vol] 18 U/L 0-35 U/L [facility] Bilirubin [Mass/Vol] 0.3 mg/dL 0.0 - 1.3 mg/dL [facility] Calcium [Mass/Vol] 9.2 mg/dL 8.4 - 10. 2 mg/dL [facility] Chloride [Moles/Vol] 107 mmol/L 98 - 108 mmol/L [facility] Creatinine [Mass/Vol] 0.54 mg/dL 0.40 - 1.10 mg/dL [facility] GFR/1.73 sq M.predicted CKD-EPI (S/P/Bld) [Vol rate/Area] 130 - PINF [facility] Comment on above: Estimated GFR was ca lculated using the 2020 CKD-EPI creatinine equation. Glucose [Mass/Vol] 84 mg/dL 65 - 99 mg/dL [facility] HCO3 [Moles/Vol] 19 mmol/L Low 21 - 32 mmol/L [facility] Interpretation and review of laboratory results Abnormal [facility] Potassium [Moles/Vol] 4.1 mmol/L 3.5 - 5.1 mmol/L [facility] Protein [Mass/Vol] 6.6 g/dL 6.0 - 8.0 g/dL [facility] Sodium [Moles/Vol] 138 mmol/L 135 - 145 mmol/L [facility] Urea nitrogen [Mass/Vol] 8 mg/dL 8 - 25 mg/dL [facility] Urea nitrogen/Creatinine [Mass ratio] 14.8 mg/mg 10.0 - 20.0 [facility] has implemented the eGFR calculation approach that does not have a coefficient for race that conforms to the NKF-ASN Task Force Recommendations. [facility] FIBRINOGENon 01-20-2024 FIBRINOGEN LEVEL 573 mg/dL High 224-483 [facility] Comment on above: Performed By: #### 4 [id number] #### [facility] [address] [place] [address] 42370 Donavan Shafer M.D. [id number] FibrinogenOrdered By: Ami Reagan on 01-20-2024 Fibrinogen Coag (PPP) [Mass/Vol] 573 mg/dL High 224 - 483 mg/dL [facility] Fibrinogen Coag (PPP) [Mass/ Vol]Ordered By: Uziel Reagan on 01-20-2024 Interpretation and review of laboratory results Abnormal [facility] HEPATITIS C ANTIBODYon 01-19 HEPATITIS C ANTIBODY Negative Normal Negative [facility] Comment on above: Order Comment: Test performed using Dorie KERRI immunoassay system Performed By: #### 4 [id number] #### [facility] [address] [place] [address] 26982 Donavan Shaefr M.D. [id number] Hepatitis C Antibodyon 01-19 HCV Ab Ql (S) Negative Negative [facility] Interpretation and review of laboratory results Normal [facility] Test performed using Dorie KERRI immunoassay system [facility] INR Coag (PPP) [Relative [place] e]on 01-20-2024 PT Coag (PPP) [Time] 13.3 s [facility] During the induction phase of oral anticoagulation, the INR may not reflect the anticoagulation status of the patient. Therapeutic ranges for INR's are: Most clinical situations: INR 2.0-3.0 Mechanical Prosthetic Valve: INR 2.5-3.5 Critical: INR >5.0 [facility] LDHon 01-20-2024 LDH Lactate to pyruvate reaction [Catalytic activity/Vol] 167 U/L 100 - 250 U/L [facility] LDH [Catalytic activity/Vol] 167 U/L Normal 100-250 [facility] Comment on above: Performed By: #### 4 [id number] #### [facility] [address] [place] [address] 25543 Donavan Shafer M.D. [id number] LDH Lactate to pyruvate reac tion [Catalytic activity/Vol]on 01-20-2024 Interpretation and review of laboratory results Normal [facility] No Panel Informationon 01-19 [facility] Interpretation and review of laboratory results Normal [facility] No Panel InformationOrdered By: Uziel Reagan on 01-20-2024 [facility] POC URINALYSIS DIPSTICK,AUTO - RALSon 01-20-2024 POC BILIRUBIN, URINE Negative Normal Negative [facility] Comment on above: Performed By: #### P [id number] #### [facility] [address] [place] [address] [id number] [facility] POC BLOOD, URINE Moderate Abnormal Negative [facility] Comment on above: Performed By: #### P [id number] #### [facility] [address] [place] [address] [id number] [facility] POC GLUCOSE, URINE Negative Normal Negative [facility] Comment on above: Performed By: #### P [id number] #### [facility] [address] [place] [address] [id number] [facility] POC KETONES, URINE Negative Normal Negative [facility] Comment on above: Performed By: #### P [id number] #### [facility] [address] [place] [address] [id number] [facility] POC LEUKOCYTE ESTERASE, URINE Negative Normal Negative [facility] Comment on above: Performed By: #### P [id number] #### [facility] [address] [place] [address] [id number] [facility] POC NITRITE, URINE Negative Normal Negative [facility] Comment on above: Performed By: #### P [id number] #### [facility] [address] [place] [address] [id number] [facility] POC PH, URINE 7.0 Normal 5.0-7.0 [facility] Comment on above: Performed By: #### P [id number] #### [facility] [address] [place] [address] [id number] [facility] POC SPECIFIC GRAVITY 1.010 Normal 1.005-1.025 [facility] Comment on above: Performed By: #### P [id number] #### [facility] [address] [place] [address] [id number] [facility] POC UROBILINOGEN 0.2 mg/dL Normal < 2.0 [facility] Comment on above: Performed By: #### P [id number] #### [facility] [address] [place] [address] [id number] [facility] Protein (U) [Mass/Vol] 100 mg/dL Abnormal Negative [facility] Comment on above: Performed By: #### P [id number] #### [facility] [address] [place] [address] [id number] [facility] POC Urinalysis Dipstick, Aut oon 01-20-2024 Bilirubin Ql (U) Negative Negative [facility] Glucose Ql (U) Negative Negative mg/dL [facility] Hemoglobin Ql (U) Moderate Abnormal Negative [facility] Interpretation and review of laboratory results Abnormal [facility] Ketones Ql (U) Negative Negative mg/dL [facility] Leukocyte esterase Test strip Ql (U) Negative Negative [facility] Nitrite Ql (U) Negative Negative [facility] pH (U) 7.0 [pH] 5.0 - 7.0 [facility] Protein Ql (U) 100 mg/dL Abnormal Negative [facility] Specific gravity (U) [Rel density] 1.010 1.005 - 1.025 [facility] Urobilinogen Qn (U) 0.2 mg/dL NINF - 2 .0 mg/dL [facility] PROTEIN / CREATININE RATIO, URINEon 01-20-2024 CREATININE,UR 53.7 mg/dL Normal [facility] Comment on above: Order Comment: Pleas e send stat Performed By: #### 4 [id number] #### [facility] [address] [place], [place] [id number] Donavan Shafer M.D. [id number] Protein (U) [Mass/Vol] 26.4 mg/dL Normal [facility] Comment on above: Order Comment: Pleas e send stat Performed By: #### 4 [id number] #### [facility] [address] [place], [place] [id number] Donavan Shafer M.D. [id number] PROTEIN CREATININE RATIO 0.5 ratio High 0.0-0.2 [facility] Comment on above: Order Comment: Ede mazariegos stat Performed By: #### 4 [id number] #### [facility] [address] [place] [address] 23345 Donavan Shafer M.D. [id number] PT/INRon 01-20-2024 INR Coag (PPP) [Relative time] 1.0 {INR} 0.8 - 1.1 [facility] INR Coag (PPP) [Relative time] 1.0 {INR} Normal 0.8-1.1 [facility] Comment on above: Order Comment: Stella bajwa the induction phase of oral anticoagulation, the INR may not reflect the anticoagulation status of the patient. Therapeutic ranges for INR's are: Most clinical situations: INR 2.0-3.0 Mechanical Prosthetic Valve: INR 2.5-3.5 Critical: INR >5.0 Performed By: #### 4 [id number] #### [facility] [address] [place] [address] 62678 Donavan Shafer M.D. [id number] PT Coag (PPP) [Time] 13.3 s Normal 11.8-14.3 [facility] Comment on above: Order Comment: Stella bajwa the induction phase of oral anticoagulation, the INR may not reflect the anticoagulation status of the patient. Therapeutic ranges for INR's are: Most clinical situations: INR 2.0-3.0 Mechanical Prosthetic Valve: INR 2.5-3.5 Critical: INR >5.0 Performed By: #### 4 [id number] #### [facility] [address] [place] [address] 81569 Donavan Shafer M.D. [id number] Protein / Creatinine Ratio, UrineOrdered By: Misael Zuleta on 01-20-2024 Protein/Creatinine (U) [Ratio] 0.5 High [facility] Protein/Creatinine (U) [Rati o]Ordered By: Misael Zuleta on 01-20-2024 Creatinine (U) [Mass/Vol] 53.7 mg/dL [facility] Interpretation and review of laboratory results Abnormal [facility] Protein (U) [Mass/Vol] 26.4 mg/dL [facility] SYPHILIS ANTIBODYon 01-20-20 SYPHILIS TREPONEMAL ANTIBODY Negative Normal Negative [facility] Comment on above: Performed By: #### 4 [id number] #### [facility] [address] [place] [address] 42530 Donavan Shafer M.D. [id number] T. pallidum IgG Ql (S)on Interpretation and review of laboratory results Normal [facility] T. pallidum Ab Ql (S) Negative Negative [facility] TYPE AND SCREENon 01-20-2024 TYPE AND SCREEN ABORH: O Positive AB SCREEN: Negative EXPIRATION DATE: 01/23/2024 23:59 EST Normal [facility] Comment on above: Performed By: #### 4 [id number] #### [facility] [address] [place] [address] Donavan Shafer M.D. [id number] URIC ACIDon 01-20-2024 Urate [Mass/Vol] 5.4 mg/dL Normal 2.4-7.0 [facility] Comment on above: Performed By: #### 4 6629 #### [facility] [address] [place] [address] Donavan Shafer M.D. [id number] Urate [Mass/Vol]on Interpretation and review of laboratory results Normal [facility] Uric Acidon 01-20-2024 Urate [Mass/Vol] 5.4 mg/dL 2.4 - 7.0 mg/dL [facility] aPTT Coag (Bld) [Time]on Therapeutic range for APTT's is 68 - 104 seconds [facility] metabolic 2000 panelon 01-16-2023 Albumin [Mass/Vol] 4.7 g/dL 3.5 - 4.8 g/dL Tr [facility] ALP [Catalytic activity/Vol] 44 U/L [facility] ALT [Catalytic activity/Vol] 13 U/L [facility] Anion gap [Moles/Vol] 11 mmol/L 6 - 18 Tri nity [facility] AST [Catalytic activity/Vol] 17 U/L [facility] Bilirubin [Mass/Vol] 0.6 mg/dL 0.3 - 1.2 mg/dL [facility] Calcium [Mass/Vol] 9.5 mg/dL 8.9 - 10. 3 mg/dL [facility] Chloride [Moles/Vol] 103 mmol/L 98 - 107 mmol/L [facility] CO2 [Moles/Vol] 25 mmol/L 22 - 32 mmol/L [facility] Creatinine [Mass/Vol] 0.71 mg/dL 0.60 - 1.30 mg/dL [facility] GFR/1.73 sq M.predicted among non-blacks MDRD (S/P/Bld) [Vol rate/Area] 121 mL/min/{1.73_m2} - PINF [facility] Comment on above: Effective June 15, 2022, calculation based on the Chronic Kidney Disease Epidemiology Collaboration (CKD-EPI) equation refit without adjustment for race. Glucose [Mass/Vol] 78 mg/dL 70 - 99 mg/dL [facility] Potassium [Moles/Vol] 4.2 mmol/L 3.6 - 5.1 mmol/L [facility] Protein [Mass/Vol] 7.8 g/dL 6.1 - 7.9 g/[facility] Sodium [Moles/Vol] 139 mmol/L 136 - 145 mmol/L [facility] Urea nitrogen [Mass/Vol] 13 mg/dL 8 - 20 mg/dL [facility] Urea nitrogen/Creatinine [Mass ratio] 18.3 mg/mg 12.0 - 20.0 [facility] TSH Qn 1.27 m[IU]/L Normal 0.45-5.33 [facility] Comment on above: Performed By: #### 2 4323-8 #### [facility] [address] [place] [address] Hemogram and platelets WO di fferential panel (Bld)on 01-16-2023 Basophils (Bld) [#/Vol] 0.03 10*3/uL [facility] Basophils/100 WBC (Bld) 0.5 % 0.0 - 2.0 % [facility] Eosinophils (Bld) [#/Vol] 0.13 10*3/uL [facility] Eosinophils/100 WBC (Bld) 2.0 % 0.0 - 7.0 % [facility] Erythrocyte distribution width (RBC) [Ratio] 12.5 % 11.0 - 14.8 % [facility] Hematocrit (Bld) [Volume fraction] 43.2 % 34.3 - 47.9 % [facility] Hemoglobin (Bld) [Mass/Vol] 14.6 g/dL 12.0 - 16.0 g/dL [facility] Immature granulocytes (Bld) [#/Vol] 0.01 10*3/uL [facility] Immature granulocytes/100 WBC (Bld) 0.2 % 0.0 - 1.2 % [facility] Interpretation and review of laboratory results Abnormal [facility] Lymphocytes (Bld) [#/Vol] 1.06 10*3/uL [facility] Lymphocytes/100 WBC (Bld) 16.4 % Low 17.9 - 49.6 % [facility] MCH (RBC) [Entitic mass] 31.1 pg [facility] MCHC (RBC) [Mass/Vol] 33.8 g/dL 30.8 - 35.3 g/dL [facility] MCV (RBC) [Entitic vol] 91.9 fL [facility] Monocytes (Bld) [#/Vol] 0.65 10*3/uL [facility] Monocytes/100 WBC (Bld) 10.0 % 0.0 - 12.0 % [facility] Neutrophils (Bld) [#/Vol] 4.60 10*3/uL [facility] Neutrophils/100 WBC (Bld) 70.9 % 38.1 - 75.5 % [facility] Platelet mean volume (Bld) [Entitic vol] 10.6 fL [facility] Platelets (Bld) [#/Vol] 220 10*3/uL [facility] RBC (Bld) [#/Vol] 4.70 10*6/uL [facility] WBC (Bld) [#/Vol] 6.5 10*3/uL [facility] Basophils (Bld) [#/Vol] 0.03 10*3/uL Normal 0.00-0.20 [facility] Comment on above: Performed By: #### 2 4317-0 #### [facility] ([facility] [address] [place] [address] Basophils/100 WBC (Bld) 0.5 % Normal 0.0-2.0 [facility] Comment on above: Performed By: #### 2 4317-0 #### [facility] [place] ([facility] [address] [place] [address]24 Eosinophils (Bld) [#/Vol] 0.13 10*3/uL Normal 0.00-0.70 [facility] Comment on above: Performed By: #### 2 7-0 #### [facility] ([facility] [address] [place] [address]23 Eosinophils/100 WBC (Bld) 2.0 % Normal 0.0-7.0 [facility] Comment on above: Performed By: #### 2 7-0 #### [facility] ([facility] [address] [place] [address] 54055 Erythrocyte distribution width (RBC) [Ratio] 12.5 % Normal 11.0-14.8 [facility] Comment on above: Performed By: #### 2 4317-0 #### [facility] ([facility] [address] [place] [address] 86212 Hematocrit (Bld) [Volume fraction] 43.2 % Normal 34.3-47.9 [facility] Comment on above: Performed By: #### 2 7-0 #### [facility] ([facility] [address] [place] [address] 10531 Hemoglobin (Bld) [Mass/Vol] 14.6 g/dL Normal 12.0-16.0 [facility] Comment on above: Performed By: #### 2 7-0 #### [facility] ([facility] [address] [place] [address] Immature granulocytes (Bld) [#/Vol] 0.01 10*3/uL Normal 0.00-0.10 [facility] Comment on above: Performed By: #### 2 4317-0 #### [facility] ([facility] [address] [place] [address]4420 Immature granulocytes/100 WBC (Bld) 0.2 % Normal 0.0-1.2 [facility] Comment on above: Performed By: #### 2 7-0 #### [facility] ([facility] [address] [place] [address] 53121 Lymphocytes (Bld) [#/Vol] 1.06 10*3/uL Normal 1.00-4.80 [facility] Comment on above: Performed By: #### 2 7-0 #### [facility] ([facility] [address] [place] [address] 68006 Lymphocytes/100 WBC (Bld) 16.4 % Low 17.9-49.6 [facility] Comment on above: Performed By: #### 2 7-0 #### [facility] ([facility] [address] [place] [address] 20684 MCH 31.1 pcg Normal 27.0-34.0 [facility] Comment on above: Performed By: #### 2 7-0 #### [facility] ([facility] [address] [place] [address] 21665 MCHC (RBC) [Mass/Vol] 33.8 g/dL Normal 30.8-35.3 [facility] Comment on above: Performed By: #### 2 7-0 #### [facility] ([facility] [address] [place] [address] 49591 MCV (RBC) [Entitic vol] 91.9 fL Normal 80.0-97.0 [facility] Comment on above: Performed By: #### 2 4317-0 #### [facility] ([facility] [address] [place] [address] 87857 Monocytes (Bld) [#/Vol] 0.65 10*3/uL Normal 0.00-0.90 [facility] Comment on above: Performed By: #### 2 4317-0 #### [facility] [place] [facility] [address] [place] [address] Monocytes/100 WBC (Bld) 10.0 % Normal 0.0-12.0 [facility] Comment on above: Performed By: #### 2 4317-0 #### [facility] [place] [facility] [address] [place] [address] 35784 Neutrophils Absolute 4.60 K/mcL Normal 1.80-7.70 [facility] Comment on above: Performed By: #### 2 4317-0 #### [facility] [address] [place] [address] 36632 Neutrophils/100 WBC (Bld) 70.9 % Normal 38.1-75.5 [facility] Comment on above: Performed By: #### 2 4317-0 #### [facility] ([facility] [address] [place] [address] 50991 Platelet mean volume (Bld) [Entitic vol] 10.6 fL Normal 6.2-12.1 [facility] Comment on above: Performed By: #### 2 4317-0 #### [facility] ([facility] [address] [place] [address] 82133 Platelets (Bld) [#/Vol] 220 10*3/uL Normal 142-424 [facility] Comment on above: Performed By: #### 2 4317-0 #### [facility] [place] [facility] [address] [place] [address] 87908 RBC (Bld) [#/Vol] 4.70 10*6/uL Normal 3.74-5.34 [facility] Comment on above: Performed By: #### 2 4317-0 #### [facility] [place] [facility] [address] [place] [address] 21460 WBC (Bld) [#/Vol] 6.5 10*3/uL Normal 4.6-10.2 [facility] Comment on above: Performed By: #### 2 4317-0 #### [facility] ([facility] [address] [place] [address] Lipid panel with direct LDLo n 01-16-2023 Cholesterol [Mass/Vol] 157 mg/dL NINF - 200 mg/dL [facility] Cholesterol in HDL [Mass/Vol] 65 mg/dL 40 - PINF mg/dL [facility] Cholesterol in LDL [Mass/Vol] 78 mg/dL NINF - 100 mg/dL [facility] Cholesterol in VLDL [Mass/Vol] 14 mg/dL 2 - 38 mg/dL [facility] Triglyceride [Mass/Vol] 70 mg/dL NINF - 200 mg/dL [facility] No Panel Informationon 01-16 Interpretation and review of laboratory results Normal [facility] TSH Qnon 01-16-2023 Interpretation and review of laboratory results Normal [facility] Thyroid stimulating hormoneo n 01-16-2023 TSH Qn 1.27 m[IU]/L [facility] Bacterial vaginosis and vagi nitis DNA panel Probe+sig amp (Vag fld)on 08-26-2022 C. glabrata DNA CARLI+non-probe Ql (Pos bld culture) Negative Negative [facility] Martha sp rRNA Probe Ql (Vag fld) Negative Negative [facility] Interpretation and review of laboratory results Normal [facility] SARS-CoV-2 (COVID-19) RNA CARLI+probe Ql (Unsp spec) Negative Negative [facility] T. vaginalis Ag Ql (Vag fld) Negative Negative [facility] N. gonorrhoeae DNA CARLI+probe Ql (U)on 08-26-2022 C. trachomatis rRNA Probe Ql (Unsp spec) Negative Negative [facility] Interpretation and review of laboratory results Normal [facility] N. gonorrhoeae rRNA Probe Ql (Unsp spec) Negative Negative [facility] HPV DNA Probe+sig amp Ql (Un sp spec)on 08-25-2022 HPV RNA Negative Normal Negative [facility] Comment on above: Performed By: #### 4 4547-8 #### [facility] ([facility] [address] [place] [address] N gonorrhoea DNA Ur Ql CARLI+p robeon 08-25-2022 N. gonorrhoeae DNA CARLI+probe Ql (U) N. gonorrhoeae, RNA Probe Status = F Negative Chlamydia, RNA Probe Status = F Negative Normal Negative [facility] Comment on above: Performed By: #### 2 1416-3 #### [facility] [place] ([facility] [address] [place] [address] N. gonorrhoeae DNA CARLI+probe Ql (U)on 08-25-2022 Bacterial vaginosis and vaginitis DNA panel Probe+sig amp (Vag fld) Bacterial vaginosis Status = F Negative Martha Species Status = F Negative Martha glabrata Status = F Negative Trichomonas vaginosis Status = F Negative Normal Negative [facility] Comment on above: Performed By: #### 2 1416-3 #### [facility] [place] [facility] [address] [place] [address] Service Cmnt-Impon 2 Service comment (Unsp spec) [Interp] F Z01.419, Z12.4 08/17/2022 NG NG Cervix SEE NOTE Satisfactory for Evaluation Endocervical/Transf ormation Zone component present SEE NOTE NEG SEE NOTE NEGATIVE FOR INTRAEPITHELIAL LESION OR MALIGNANCY SEE NOTE No Organisms Detected Test Performed at: [employer]/[address] [place] [address] Bree Baker MD, PhD TNP SEE NOTE Screener JB CT(ASCP) EXPLANATORY NOTE: The Pap is a screening test for cervical cancer. It is not a diagnostic test and is subject to false negative and false positive results. It is most reliable when a satisfactory sample, regularly obtained, is submitted with relevant clinical findings and history, and when the Pap result is evaluated along with historic and current clinical information. This Pap test has been evaluated with computer assisted technology. TNP TNP Normal [facility] Comment on above: Performed By: #### 8 251-1 #### [facility] [address] [place] [address] 25-hydroxyvitamin D3 [Mass/V ol]on 07-21-2022 Interpretation and review of laboratory results Abnormal [facility] metabolic 2000 panelon 07-21-2022 Albumin [Mass/Vol] 4.2 g/dL 3.5 - 4.8 g/dL Tr [facility] ALP [Catalytic activity/Vol] 46 U/L [facility] ALT [Catalytic activity/Vol] 13 U/L [facility] Anion gap [Moles/Vol] 7 mmol/L 6 - 18 [facility] AST [Catalytic activity/Vol] 15 U/L [facility] Bilirubin [Mass/Vol] 0.4 mg/dL 0.3 - 1.2 mg/dL [facility] Calcium [Mass/Vol] 9.0 mg/dL 8.9 - 10. 3 mg/dL [facility] Chloride [Moles/Vol] 104 mmol/L 98 - 107 mmol/L [facility] CO2 [Moles/Vol] 28 mmol/L 22 - 32 mmol/L [facility] Creatinine [Mass/Vol] 0.61 mg/dL 0.60 - 1.30 mg/dL [facility] GFR/1.73 sq M.predicted MDRD (S/P/Bld) [Vol rate/Area] 128 mL/min/{1.73_m2} - PINF [facility] Comment on above: Effective June 15, 2022, calculation based on the Chronic Kidney Disease Epidemiology Collaboration (CKD-EPI) equation refit without adjustment for race. Glucose [Mass/Vol] 93 mg/dL 70 - 99 mg/dL [facility] Interpretation and review of laboratory results Abnormal [facility] Potassium [Moles/Vol] 4.5 mmol/L 3.6 - 5.1 mmol/L [facility] Protein [Mass/Vol] 7.0 g/dL 6.1 - 7.9 g/dL Tr [facility] Sodium [Moles/Vol] 139 mmol/L 136 - 145 mmol/L [facility] Urea nitrogen [Mass/Vol] 15 mg/dL 8 - 20 mg/dL [facility] Urea nitrogen/Creatinine [Mass ratio] 24.6 mg/mg High 12.0 - 20.0 [facility] Vit D, 25-Hydroxy 23.0 ng/mL Low 30.0-100.0 [facility] Comment on above: Result Comment: Defi cient <20 ng/mL Insufficient 20 to 30 ng/mL Sufficient 30-100 ng/mL Toxic >100 ng/mL Performed By: #### 2 4323-8 #### [facility] ([facility] [address] [place] [address] HCV Ab IA Qlon 07-21-2022 Interpretation and review of laboratory results Normal [facility] HIV 1+2 Ab IA.rapid Ql (Unsp spec)on 07-21-2022 HIV 1+2 Ab+HIV1 p24 Ag IA Ql Non-Reactive Nonreactive [facility] Interpretation and review of laboratory results Normal [facility] This is a 4th generation test (P24 AG,HIV-1 AB, HIV-2 AB) Specimens with preliminary reactive results will be confirmed by HIV1/2 Differentiation test ([employer]). THE IDENTITY OF A PERSON ON WHOM AN HIV TEST HAS BEEN ORDERED AND THE RESULTS OF THAT TEST ARE CONFIDENTIAL This information is confidential and protected from disclosure by state law. You shall make no further disclosure of this information without the specific written and informed release of the individual tested or as otherwise permitted by law. A person who knowingly violates this confidentiality may be found liable in a civil action and be responsible for compensitory damages and equitable relief. [facility] Hepatitis C Antibody Non-Reactive Normal Nonreactive [facility] Comment on above: Order Comment: This is a 4th generation test (P24 AG,HIV-1 AB, HIV-2 AB) Specimens with preliminary reactive results will be confirmed by HIV1/2 Differentiation test ([employer]). THE IDENTITY OF A PERSON ON WHOM AN HIV TEST HAS BEEN ORDERED AND THE RESULTS OF THAT TEST ARE CONFIDENTIAL This information is confidential and protected from disclosure by state law. You shall make no further disclosure of this information without the specific written and informed release of the individual tested or as otherwise permitted by law. A person who knowingly violates this confidentiality may be found liable in a civil action and be responsible for compensitory damages and equitable relief. Performed By: #### 4 9580-4 #### [facility] ([facility] [address] [place] [address] Hemogram and platelets WO di fferential panel (Bld)on 07-21-2022 Basophils (Bld) [#/Vol] 0.04 10*3/uL [facility] Basophils/100 WBC (Bld) 0.7 % 0.0 - 2.0 % [facility] Eosinophils (Bld) [#/Vol] 0.25 10*3/uL [facility] Eosinophils/100 WBC (Bld) 4.2 % 0.0 - 7.0 % [facility] Erythrocyte distribution width (RBC) [Ratio] 12.6 % 11.0 - 14.8 % [facility] Hematocrit (Bld) [Volume fraction] 40.5 % 34.3 - 47.9 % [facility] Hemoglobin (Bld) [Mass/Vol] 13.6 g/dL 12.0 - 16.0 g/dL [facility] Immature granulocytes (Bld) [#/Vol] 0.02 10*3/uL [facility] Immature granulocytes/100 WBC (Bld) 0.3 % 0.0 - 1.2 % [facility] Interpretation and review of laboratory results Abnormal [facility] Lymphocytes (Bld) [#/Vol] 0.98 10*3/uL Low [facility] Lymphocytes/100 WBC (Bld) 16.4 % Low 17.9 - 49.6 % [facility] MCH (RBC) [Entitic mass] 30.6 pg [facility] MCHC (RBC) [Mass/Vol] 33.6 g/dL 30.8 - 35.3 g/dL [facility] MCV (RBC) [Entitic vol] 91.2 fL [facility] Monocytes (Bld) [#/Vol] 0.62 10*3/uL [facility] Monocytes/100 WBC (Bld) 10.4 % 0.0 - 12.0 % [facility] Neutrophils (Bld) [#/Vol] 4.06 10*3/uL [facility] Neutrophils/100 WBC (Bld) 68.0 % 38.1 - 75.5 % [facility] Platelet mean volume (Bld) [Entitic vol] 10.3 fL [facility] Platelets (Bld) [#/Vol] 243 10*3/uL [facility] RBC (Bld) [#/Vol] 4.44 10*6/uL [facility] WBC (Bld) [#/Vol] 6.0 10*3/uL [facility] Basophils (Bld) [#/Vol] 0.04 10*3/uL Normal 0.00-0.20 [facility] Comment on above: Performed By: #### 2 4317-0 #### [facility] ([facility] [address] [place] [address] Basophils/100 WBC (Bld) 0.7 % Normal 0.0-2.0 [facility] Comment on above: Performed By: #### 2 7-0 #### [facility] [address] [place] [address] 06412 Eosinophils (Bld) [#/Vol] 0.25 10*3/uL Normal 0.00-0.70 [facility] Comment on above: Performed By: #### 2 7-0 #### [facility] ([facility] [address] [place] [address] 69421 Eosinophils/100 WBC (Bld) 4.2 % Normal 0.0-7.0 [facility] Comment on above: Performed By: #### 2 7-0 #### [facility] ([facility] [address] [place] [address] 66072 Erythrocyte distribution width (RBC) [Ratio] 12.6 % Normal 11.0-14.8 [facility] Comment on above: Performed By: #### 2 4317-0 #### [facility] ([facility] [address] [place] [address] 89395 Hematocrit (Bld) [Volume fraction] 40.5 % Normal 34.3-47.9 [facility] Comment on above: Performed By: #### 2 4317-0 #### [facility] ([facility] [address] [place] [address] 51578 Hemoglobin (Bld) [Mass/Vol] 13.6 g/dL Normal 12.0-16.0 [facility] Comment on above: Performed By: #### 2 4317-0 #### [facility] ([facility] [address] [place] [address] 88511 Immature granulocytes (Bld) [#/Vol] 0.02 10*3/uL Normal 0.00-0.10 [facility] Comment on above: Performed By: #### 2 4317-0 #### [facility] ([facility] [address] [place] [address] Immature granulocytes/100 WBC (Bld) 0.3 % Normal 0.0-1.2 [facility] Comment on above: Performed By: #### 2 7-0 #### [facility] ([facility] [address] [place] [address] 99727 Lymphocytes (Bld) [#/Vol] 0.98 10*3/uL Low 1.00-4.80 [facility] Comment on above: Performed By: #### 2 4317-0 #### [facility] ([facility] [address] [place] [address] 43149 Lymphocytes/100 WBC (Bld) 16.4 % Low 17.9-49.6 [facility] Comment on above: Performed By: #### 2 4317-0 #### [facility] ([facility] [address] [place] [address]308 MCH 30.6 pcg Normal 27.0-34.0 [facility] Comment on above: Performed By: #### 2 4317-0 #### [facility] [address] [place] [address] 28143 MCHC (RBC) [Mass/Vol] 33.6 g/dL Normal 30.8-35.3 [facility] Comment on above: Performed By: #### 2 4317-0 #### [facility] ([facility] [address] [place] [address] 09715 MCV (RBC) [Entitic vol] 91.2 fL Normal 80.0-97.0 [facility] Comment on above: Performed By: #### 2 4317-0 #### [facility] ([facility] [address] [place] [address] 92649 Monocytes (Bld) [#/Vol] 0.62 10*3/uL Normal 0.00-0.90 [facility] Comment on above: Performed By: #### 2 4317-0 #### [facility] [place] [facility] [address] [place] [address] Monocytes/100 WBC (Bld) 10.4 % Normal 0.0-12.0 [facility] Comment on above: Performed By: #### 2 4317-0 #### [facility] [place] [facility] [address] [place] [address] Neutrophils Absolute 4.06 K/mcL Normal 1.80-7.70 [facility] Comment on above: Performed By: #### 2 4317-0 #### [facility] ([facility] [address] [place] [address] 21242 Neutrophils/100 WBC (Bld) 68.0 % Normal 38.1-75.5 [facility] Comment on above: Performed By: #### 2 4317-0 #### [facility] [address] [place] [address] 53723 Platelet mean volume (Bld) [Entitic vol] 10.3 fL Normal 6.2-12.1 [facility] Comment on above: Performed By: #### 2 4317-0 #### [facility] ([facility] [address] [place] [address] Platelets (Bld) [#/Vol] 243 10*3/uL Normal 142-424 [facility] Comment on above: Performed By: #### 2 4317-0 #### [facility] [facility] [place] ([facility]) LAB [address] [place] [address] RBC (Bld) [#/Vol] 4.44 10*6/uL Normal 3.74-5.34 [facility] Comment on above: Performed By: #### 2 4317-0 #### [facility] [place] [facility] [address] [place] [address] WBC (Bld) [#/Vol] 6.0 10*3/uL Normal 4.6-10.2 [facility] Comment on above: Performed By: #### 2 4317-0 #### [facility] ([facility]) LAB [address] [place] [address] Hepatitis C antibody screeno n 07-21-2022 HCV Ab IA Ql Non-Reactive Nonreactive [facility] Lipid panel with direct LDLo n 07-21-2022 Cholesterol [Mass/Vol] 137 mg/dL NINF - 200 mg/dL [facility] Cholesterol in HDL [Mass/Vol] 53 mg/dL 40 - PINF mg/dL [facility] Cholesterol in LDL [Mass/Vol] 70 mg/dL NINF - 100 mg/dL [facility] Cholesterol in VLDL [Mass/Vol] 13.8 mg/dL 2 - 38 mg/dL [facility] Interpretation and review of laboratory results Normal [facility] Triglyceride [Mass/Vol] 69 mg/dL NINF - 200 mg/dL [facility] No Panel Informationon 07-21 [facility] TSH Qnon 07-21-2022 Interpretation and review of laboratory results Normal [facility] Thyroid stimulating hormoneo n 07-21-2022 TSH Qn 0.90 m[IU]/L [facility] Vitamin D 25 hydroxyon 07-21 25-hydroxyvitamin D3 [Mass/Vol] 23.0 ng/mL Low 30.0 - 100.0 ng/mL [facility] Comment on above: Deficient <20 ng/mL Insufficient 20 to 30 ng/mL Sufficient 30-100 ng/mL Toxic >100 ng/mL US Pelvic, Transvaginalon US Pelvic, Transvaginal FINDINGS: Uterus 8.0 x 3.8 x 3.3 cm Endometrium 9 mm Right Ovary3.7 x 3.4 x 2.4 cm (cyst) Left Ovary2.8 x 1.8 x 2.3 cm Normal uterine orientation and morphology. Normal myometrium and endometrium. No pelvic fluid. Normal left ovary. Right ovarian 2.2 x 2.1 x 1.9 cm benign simple cyst. IMPRESSION: 1. Right ovarian 2 cm simple cyst 2. Norml uterus Report reported and signed by Oseas Martines on 08/27/2021 0804 Normal [facility] Student Services Counselor Q - BV/VAGINITIS PANEL DNA Bree Juarez 08-23-2021 TRICHOMONAS: TNP Normal [facility] Comment on above: Order Comment: [facility] Testing performed at: QPT, [facility], [address], [address] [facility], [place], [address], Block Sorter: Haja Estrada MD [facility] Collection Date/Time: [id number] [facility] Results Received Date/Time: [id number] [facility] Reported Date/Time: [id number] Result Comment: TEST NOT PERFORMED Due to a laboratory error, we are unable to perform this test. Specimen exceeded stability due to incorrect storage. Performed By: #### 1 [id number] #### [facility] Default [address] [place] [address] MRI IACS WO W CONon 03-19-20 20 MRI IACS WO W CON EXAMINATION: MRI IACS WO W CON HISTORY: Tinnitus of left ear COMPARISON: No relevant comparison available. TECHNIQUE: A limited examination was performed of the internal auditory canals. Images were obtained without and with ml Dotarem contrast. FINDINGS: IACS: Negative. No evidence of an acoustic schwannoma. INNER EARS: Negative. No abnormal signal intensity. MIDDLE EARS: Negative. No fluid or abnormal soft tissue. MASTOIDS: Negative. No fluid or abnormal soft tissue. BRAINSTEM: Negative. No edema, mass, or inappropriate atrophy within the field of view. CSF SPACES: Negative. No visible mass. IMPRESSION: 1. Normal appearance of the internal auditory canals. 2. No abnormal or suspicious findings to account for the patient's symptoms. Electronically authenticated by: WYATT CURRAN Date: 2020-03-19 09:57 Normal [facility] CHLAMYDIA/GONOCOCCUS CARLI (SW AB/URINE/PAPon 05-02-2019 Chlamydia trachomatis, CARLI Negative Normal Negative [facility] Comment on above: Performed By: #### C T/NGNA #### [facility] [address] [address] Yuri Carias Neisseria gonorrhoeae, CARLI Negative Normal Negative [facility] Comment on above: Performed By: #### C T/NGNA #### [facility] [address] [place], [place] [address] Yuri Carias VAGINITIS/VAGINOSIS DNA PROB Jose 04-30-2019 Martha species Negative Normal Negative [facility] Comment on above: Performed By: #### V AGINT #### [facility] [address] [place], [place] [address] Yuri Carias Gardnerella vaginalis Negative Normal Negative [facility] Comment on above: Performed By: #### V AGINT #### [facility] [address] [place], [place] [address] Yuri Carias Trichomonas vaginalis Negative Normal Negative [facility] Comment on above: Performed By: #### V AGINT #### [facility] [address] [place], [place] [address] Yuri Carias Vital Signs Date Time Vital Sign Value Performing Clinician Shira calzada 04-10-2025 11:33-0400 Body mass index (BMI) [Ratio] 37.73 kg/m2 Quincy Roberts NP Work Phone: [facility] 04-10-2025 11:33-0400 Body weight 96.62 kg Quincy Roberts [employer] Work Phone: [facility] 04-10-2025 11:33-0400 Diastolic blood pressure 72 mm[Hg] Quincy Roberts [employer] Work Phone: [facility] 04-10-2025 11:33-0400 Systolic blood pressure 118 mm[Hg] Quincy Roberts [employer] Work Phone: [facility] 03-02-2025 09:57-0400 Body mass index (BMI) [Ratio] 36.87 kg/m2 Ernestine CASTORENA Work Phone: [facility] 03-02-2025 09:57-0400 Body weight 94.4 kg Ernestine CASTORENA Work Phone: [facility] 03-02-2025 09:57-0400 Diastolic blood pressure 68 mm[Hg] Ernestine CASTORENA Work Phone: [facility] 03-02-2025 09:57-0400 Systolic blood pressure 110 mm[Hg] Ernestine CASTORENA Work Phone: [facility] 02-02-2025 10:44-0400 Body mass index (BMI) [Ratio] 36.63 kg/m2 Ernestine López PA Work Phone: [facility] 02-02-2025 10:44-0400 Body weight 93.8 kg Ernestine López PA Work Phone: [facility] 02-02-2025 10:44-0400 Diastolic blood pressure 64 mm[Hg] Ernestine López PA Work Phone: [facility] 02-02-2025 10:44-0400 Systolic blood pressure 110 mm[Hg] Ernestine López PA Work Phone: [facility] 01-05-2025 11:28-0400 Body mass index (BMI) [Ratio] 36.51 kg/m2 Josiah Amadeo DO Work Phone: [facility] 01-05-2025 11:28-0400 Body weight 93.5 kg Josiah Amadeo DO Work Phone: [facility] 01-05-2025 11:28-0400 Diastolic blood pressure 78 mm[Hg] Josiah Amadeo DO Work Phone: [facility] 01-05-2025 11:28-0400 Systolic blood pressure 120 mm[Hg] Josiah Amadeo DO Work Phone: [facility] 12-22-2024 14:47-0400 Body mass index (BMI) [Ratio] 37.45 kg/m2 [facility] 12-22-2024 14:47-0400 Body weight 95.89 kg [facility] Nurse [facility] 01-24-2024 13:30-0400 Respiratory rate 16 /min Frankie Artis MD Work Phone: [facility] 01-24-2024 08:29-0400 Body temperature 98.1 [degF] Frankie Artis MD Work Phone: [facility] 01-24-2024 08:29-0400 Diastolic blood pressure 84 mm[Hg] Frankie Artis MD Work Phone: [facility] 01-24-2024 08:29-0400 Heart rate 92 /min Frankie Artis MD Work Phone: [facility] 01-24-2024 08:29-0400 SaO2% (BldA) [Mass fraction] 99 % Frankie Artis MD Work Phone: [facility] 01-24-2024 08:29-0400 Systolic blood pressure 128 mm[Hg] Frankie Artis MD Work Phone: [facility] 01-20-2024 21:00-0400 Body height 160 cm Frankie Artis MD Work Phone: [facility] 01-20-2024 21:00-0400 Body mass index (BMI) [Ratio] 40.57 kg/m2 Frankie Artis MD Work Phone: [facility] 01-20-2024 21:00-0400 Body weight 103.87 kg Frankie Artis MD Work Phone: [facility] 01-16-2023 11:34-0400 Body height 160.6 cm Ej Burk [employer] Work Phone: [facility] 01-16-2023 11:34-0400 Body mass index (BMI) [Ratio] 30.42 kg/m2 Ej Burk [employer] Work Phone: [facility] 01-16-2023 11:34-0400 Body temperature 98.2 [degF] Ej Bruk [employer] Work Phone: [facility] 01-16-2023 11:34-0400 Body weight 78.47 kg Ej Burk [employer] Work Phone: [facility] 01-16-2023 11:34-0400 Diastolic blood pressure 66 mm[Hg] Ej Burk [employer] Work Phone: [facility] 01-16-2023 11:34-0400 Heart rate 70 /min Ej Burk [employer] Work Phone: [facility] 01-16-2023 11:34-0400 Respiratory rate 14 /min Ej Neuhart [employer] Work Phone: [email or web address] 01-16-2023 11:34-0400 Systolic blood pressure 116 mm[Hg] Ej Neuhart [employer] Work Phone: [facility] 08-25-2022 11:40-0500 Diastolic blood pressure 67 mm[Hg] Ej Neuhart [employer] Work Phone: [facility] 08-25-2022 11:40-0500 Heart rate 74 /min Ej Neuhart [employer] Work Phone: [email or web address] 08-25-2022 11:40-0500 Systolic blood pressure 107 mm[Hg] Ej Neuhart [employer] Work Phone: [facility] 08-25-2022 11:29-0500 Body height 160.6 cm Ej Neuhart [employer] Work Phone: [facility] 08-25-2022 11:29-0500 Body mass index (BMI) [Ratio] 31.3 kg/m2 Ej Neuhart [employer] Work Phone: [facility] 08-25-2022 11:29-0500 Body temperature 98.71 [degF] Ej Neuhart [employer] Work Phone: [facility] 08-25-2022 11:29-0500 Body weight 80.74 kg Ej Neuhart [employer] Work Phone: [facility] 08-25-2022 11:29-0500 Respiratory rate 14 /min Ej Neuhart [employer] Work Phone: [facility] 07-21-2022 10:44-0500 Body height 160.6 cm Ej Neuhart [employer] Work Phone: [facility] 07-21-2022 10:44-0500 Body mass index (BMI) [Ratio] 31.16 kg/m2 Ej Neuhart [employer] Work Phone: [email or web address] 07-21-2022 10:44-0500 Body temperature 98.01 [degF] Ej العراقيt [employer] Work Phone: [email or web address] 07-21-2022 10:44-0500 Body weight 80.38 kg Ej العراقيt [employer] Work Phone: [email or web address] 07-21-2022 10:44-0500 Diastolic blood pressure 69 mm[Hg] Ej العراقيt [employer] Work Phone: [email or web address] 07-21-2022 10:44-0500 Heart rate 70 /min Ej العراقيt [employer] Work Phone: [email or web address] 07-21-2022 10:44-0500 Respiratory rate 16 /min Ej العراقيt [employer] Work Phone: [email or web address] 07-21-2022 10:44-0500 Systolic blood pressure 133 mm[Hg] Ej العراقيt [employer] Work Phone: [email or web address] Encounters Encounter Date Encounter Type Care Provider Facility Start: 04-10-2025 End: 04-10-2025 Office outpatient visit 15 minutes Quincy Roberts [employer] Work Phone: [facility] Comment on above: Second trimester pre gnancy ([facility]); 25 weeks gestation of ([facility]); History of induced hypertension; H/O pre-eclampsia in prior , currently ([facility]); Diabetes mellitus screening Start: 04-10-2025 End: 04-10-2025 ambulatory QUINCY ROBERTS Not Available Start: 03-02-2025 End: 03-04-2025 Clinisync Result Encounter Ernestine CASTORENA Work Phone: [facility] Unsolicited Start: 03-02-2025 End: 03-04-2025 Clinisync Result Encounter Ernestine CASTORENA Work Phone: [facility] Unsolicited Start: 03-02-2025 End: 03-02-2025 flow sheet Ernestine CASTORENA Work Phone: [facility] Comment on above: Second trimester pre gnancy ([facility]); 20 weeks gestation of ([facility]) Start: 03-02-2025 End: 03-02-2025 ambulatory ERNESTINE LÓPEZ Not Available Start: 02-02-2025 End: 02-02-2025 Bamboo flowsheet Ernestine CASTORENA Work Phone: [facility] Start: 02-02-2025 End: 02-02-2025 Bamboo flowsheet Ernestine CASTORENA Work Phone: [facility] Start: 02-02-2025 End: 02-02-2025 flow sheet Ernestine CASTORENA Work Phone: [facility] Comment on above: 16 weeks gestation o f ; Second trimester ; Screening, , for anatomic survey Start: 02-02-2025 End: 02-02-2025 ambulatory ERNESTINE LÓPEZ Not Available Start: 01-05-2025 End: 01-09-2025 Clinisync Result Encounter Josiah Amadeo DO Work Phone: [facility] External Department Unsolicited Start: 01-05-2025 End: 01-06-2025 External Result Encounter Josiah Amadeo DO Work Phone: [facility] External Department Unsolicited Start: 01-05-2025 End: 01-09-2025 External Result Encounter Josiah Amadeo DO Work Phone: [facility] External Department Unsolicited Start: 01-05-2025 End: 01-05-2025 Patient encounter procedure Josiah Amadeo DO Work Phone: [facility] Start: 01-05-2025 End: 01-05-2025 Periodic preventive med est patient 18-39 yrs Josiah Amadeo DO Work Phone: [facility] Comment on above: First trimester preg jakob; 12 weeks gestation of ; Nausea and vomiting, unspecified vomiting type; Well woman exam with routine gynecological exam; Vaginal discharge; STD exposure Start: 01-05-2025 End: 01-05-2025 ambulatory JOSIAH AMADEO Not Available Start: 12-28-2024 End: 12-28-2024 Clinisync Result Encounter Josiah Amadeo DO Work Phone: [facility] Unsolicited Start: 12-28-2024 End: 12-28-2024 Clinisync Result Encounter Josiah Amadeo DO Work Phone: [facility] Unsolicited Start: 12-22-2024 End: 12-22-2024 Clinisync Result Encounter Josiah Amadeo DO Work Phone: [facility] Unsolicited Start: 12-22-2024 End: 12-22-2024 Clinisync Result Encounter Josiah Amadeo DO Work Phone: [facility] Unsolicited Start: 12-22-2024 End: 12-22-2024 Office outpatient visit 5 minutes [facility] Am[facility]o Nurse [facility] Comment on above: GA: 10w0d Start: 12-22-2024 End: 12-22-2024 ambulatory JOSIAH AMADEO Not Available Start: 01-20-2024 End: 01-24-2024 Evaluation and management of inpatient Elisa Kasey Hebert MD Work Phone: [facility] Start: 08-27-2023 End: 08-27-[address] [facility] Start: 01-16-2023 End: 01-16-2023 ambulatory EJ BURK [facility] Start: 01-16-2023 End: 01-16-2023 Patient encounter procedure Ej Burk [employer] Work Phone: [facility] Start: 01-16-2023 End: 01-16-2023 Patient encounter status Ej Burk NP Work Phone: [facility] Start: 01-16-2023 End: 01-16-2023 Periodic preventive med est patient 18-39 yrs Ej Burk NP Work Phone: [facility] Comment on above: Adult general medica l examination (Primary Dx); Bipolar 1 disorder ([facility]); Seasonal allergies Start: 11-20-2022 Refill Ej giraldo [employer] Work Phone: [facility] Comment on above: Allergic rhinitis, u nspecified seasonality, unspecified trigger Start: 11-20-2022 Refill Ej giraldo [employer] Work Phone: [facility] Start: 08-25-2022 End: 08-25-2022 ambulatory EJ BURK [facility] Start: 08-25-2022 End: 08-25-2022 Office outpatient visit 15 minutes Ej Burk [employer] Work Phone: [facility] Comment on above: Encounter for gyneco logical examination without abnormal finding (Primary Dx); Screening for STD (sexually transmitted disease); Screening for cervical cancer Start: 08-25-2022 End: 08-25-2022 Patient encounter procedure Ej Burk [employer] Work Phone: [facility] Start: 08-25-2022 End: 08-25-2022 Patient encounter status Ej Burk [employer] Work Phone: [facility] Start: 07-21-2022 End: 07-21-2022 ambulatory EJ BURK [facility] Start: 07-21-2022 Encounter for genera l adult medical examination without abnormal findings EJ BURK [facility] Start: 07-21-2022 End: 07-21-2022 Office outpatient new 45 minutes Ej Burk [employer] Work Phone: [facility] Comment on above: Allergic rhinitis, u nspecified seasonality, unspecified trigger (Primary Dx); Pain in both upper extremities; Adult general medical examination; Need for influenza vaccination Start: 07-21-2022 End: 07-21-2022 Patient encounter procedure Ej Burk [employer] Work Phone: [facility] Start: 07-21-2022 End: 07-21-2022 Patient encounter status Ej Burk [employer] Work Phone: [facility] Start: 03-19-2020 End: 03-20-2020 Patient encounter procedure HERIBERTO JHA Facility:[facility] Start: 04-28-2019 End: 04-28-2019 Patient encounter procedure ROSALEE LR Facility:[facility] Procedures Date Procedure Procedure Detail Performing Clinician Start: 04-10-2025 Urnls dip stick/tabl et rgnt non-auto w/o micrscp Quincy Roberts [employer] Work Phone: Start: 03-02-2025 AFP, SERUM, OPEN SPI NA BIFIDA Ernestine CASTORENA Work Phone: Start: 03-02-2025 Urnls dip stick/tabl et rgnt non-auto w/o micrscp Ernestine CASTORENA Work Phone: Start: 02-02-2025 Urnls dip stick/tabl et rgnt non-auto w/o micrscp Ernestine CASTORENA Work Phone: Start: 01-05-2025 RECURRENT VAGINITIS (HTRX) Josiah Amadeo DO Work Phone: Start: 01-05-2025 Urnls dip stick/tabl et rgnt non-auto w/o micrscp Josiah Amadeo DO Work Phone: Start: 01-05-2025 IGP,APTIMA HPV,AGE GDLN Josiah Amadeo DO Work Phone: Start: 12-28-2024 Antibody screen Josiah F azio DO Work Phone: Start: 12-28-2024 ALL TYPE AND SCREEN Cor ey Amadeo DO Work Phone: Start: 12-22-2024 MLR HEMOGLOBIN A1C Core y Amadeo DO Work Phone: Start: 12-22-2024 End: 12-22-2024 Urnls dip stick/tablet rgnt non-auto w/o micrscp Josiah Amadeo DO Work Phone: Start: 01-23-2024 Blood count hematocrit Frankie Artis MD Work Phone: Start: 01-22-2024 Blood count complete automated Debbi Perea MD Work Phone: Start: 01-21-2024 Blood count complete auto&auto difrntl wbc James Foley MD Work Phone: Start: 01-20-2024 Blood group typing Stac ey Kasey Hebert MD Work Phone: Start: 01-20-2024 Blood typing serologic abo James Foley MD Work Phone: Start: 01-20-2024 Comprehensive metabo lic panel James Foley MD Work Phone: Start: 01-20-2024 POC URINALYSIS DIPSTICK,AUTO - RALS Elisa Kasey Hebert MD Work Phone: Start: 01-16-2023 CBC W Auto Different ial panel - Blood Ej Burk [employer] Work Phone: Start: 01-16-2023 Comprehensive metabo lic panel Ej Burk [employer] Work Phone: Start: 01-16-2023 Lipid panel Ej guerrero [employer] Work Phone: Start: 08-25-2022 Iadna chlamydia trac homatis amplified probe tq Ej Burk [employer] Work Phone: Start: 08-25-2022 VAGINITIS PATHOGENS BY PCR Ej Burk [employer] Work Phone: Start: 07-21-2022 CBC W Auto Different ial panel - Blood Ej Burk [employer] Work Phone: Start: 07-21-2022 Comprehensive metabo lic panel Ej العراقيt [employer] Work Phone: Start: 07-21-2022 Hepatitis c antibody Va jonas العراقيt [employer] Work Phone: Start: 07-21-2022 Hiv combination assay V min Rhiannon [employer] Work Phone: Start: 07-21-2022 Adult depression scr eening assessment Ej Rhiannon [employer] Work Phone: Plan of Treatment Date Care Activity Detail Author Start: 01-17-2028 Lipid panel Cholesterol Sc reening (Lipid Panel) [facility] Start: 07-21-2027 Lipid panel Cholesterol Sc reening (Lipid Panel) [facility] Start: 08-25-2025 Screening for malign ant neoplasm of cervix Cervical Cancer Screening: Pap Smear [facility] Start: 05-08-2025 Influenza vaccination [facility] Start: 04-10-2025 End: 04-10-2026 CBC panel - Blood by Automated count CBC Lab Routine Diabetes mellitus screening Expected: 04/10/2025 (Approximate), Expires: 04/10/2026 [facility] Work Phone: Comment on above: Expected: 04/10/2025 (Approximate), Expires: 04/10/2026 Start: 04-10-2025 End: 04-10-2026 Measurement of glucose 1 hour after glucose challenge for glucose tolerance test Glucose tolerance, 1 hour Lab Routine Diabetes mellitus screening Expected: 04/10/2025 (Approximate), Expires: 04/10/2026 [facility] Comment on above: Expected: 04/10/2025 (Approximate), Expires: 04/10/2026 Start: 03-30-2025 End: 03-30-2025 Patient encounter procedure 03/30/2025 9:40 AM EDT Routine [facility] [address] [place] [id number] Josiah Childs DO [address] [place] [address] [facility] Start: 03-02-2025 End: 03-02-2025 Patient encounter procedure 03/02/2025 10:20 AM EDT Routine [facility] [address] [place] [id number] Ernestine López PA [address] [place] [address] [facility] Start: 03-02-2025 End: 03-02-2025 Professional / ancillary services management 03/02/2025 9:00 AM EDT Ancillary Procedure [facility] [address] [place] [id number] [facility] Start: 02-02-2025 End: 03-05-2025 Alpha fetoprotein, maternal Alpha fetoprotein, maternal Lab Routine 16 weeks gestation of Second trimester Expected: 02/02/2025 (Approximate), Expires: 03/05/2025 [facility] Comment on above: Expected: 02/02/2025 (Approximate), Expires: 03/05/2025 Start: 02-02-2025 End: 05-05-2025 US for US OB 14+ weeks anatomy scan Imaging Routine Screening, , for anatomic survey Expected: 02/02/2025, Expires: 05/05/2025 [facility] Work Phone: Comment on above: Expected: 02/02/2025 , Expires: 05/05/2025 Start: 02-02-2025 End: 02-02-2025 Patient encounter procedure [facility] Comment on above: Arrived Start: 01-05-2025 End: 01-05-2025 Patient encounter procedure 01/05/2025 11:20 AM EDT Routine [facility] [address] [place] [phone] Josiah Childs DO [address] [place] [address] [facility] Start: 12-22-2024 End: 12-22-2025 ABO/Rh ABO/Rh Lab Routine Missed menses , unspecified gestational age Expected: 12/22/2024 (Approximate), Expires: 12/22/2025 [facility] Comment on above: Expected: 12/22/2024 (Approximate), Expires: 12/22/2025 Start: 12-22-2024 End: 12-22-2025 Blood type and Indirect antibody screen panel - Blood Type and screen Lab Routine Missed menses , unspecified gestational age Expected: 12/22/2024 (Approximate), Expires: 12/22/2025 [facility] Work Phone: Comment on above: Expected: 12/22/2024 (Approximate), Expires: 12/22/2025 Start: 12-22-2024 End: 12-22-2025 Drugs of abuse panel - Urine by Screen method Rapid drug screen, urine Lab Routine , unspecified gestational age Encounter for supervision of normal first in first trimester Expected: 12/22/2024 (Approximate), Expires: 12/22/2025 [facility] Comment on above: Expected: 12/22/2024 (Approximate), Expires: 12/22/2025 Start: 07-21-2023 Adolescent depressio n screening assessment Depression Screening [facility] Start: 07-21-2023 Social Influencers o f Health Screening Social Influencers of Health Screening [facility] Start: 07-10-2023 End: 07-10-2023 Patient encounter procedure 07/10/2023 Office Visit Family Ej Brown, JAZMIN [address] [place] [address] [facility] Start: 01-19-2023 End: 01-19-2023 Patient encounter procedure 01/19/2023 Office Visit Family Ej Brown NP [address] [place] [address] [facility] Start: 08-25-2022 End: 08-25-2022 Patient encounter procedure 08/25/2022 Office Visit Family Ej Brown NP [address] [place] [address] [facility] Start: 07-14-2022 Screening for Chlamy miroslava trachomatis Gonorrhea/Chlamydia Screening [facility] Start: 10-07-2021 COVID-19 Vaccine (4 - Booster for Pfizer series) COVID-19 Vaccine (4 - Booster for Pfizer series) [facility] Start: 08-29-2018 DTaP,Tdap,and Td Vaccines (7 - Td or Tdap) DTaP,Tdap,and Td Vaccines (7 - Td or Tdap) [facility] Start: 2018 Screening for malign ant neoplasm of cervix Cervical Cancer Screening: Pap Smear [facility] Bacteria identified in Urine by Culture Urine culture Microbiology Routine Missed menses Ordered: 12/22/2024 [facility] Comment on above: Ordered: 12/22/2024 CBC W Auto Different ial panel - Blood CBC and differential Lab Routine Missed menses , unspecified gestational age Ordered: 12/22/2024 [facility] Comment on above: Ordered: 12/22/2024 CHLAMYDIA TRACHOMATI S (GENITO/STI) CHLAMYDIA TRACHOMATIS (GENITO/STI) Lab Routine STD exposure Ordered: 01/05/2025 [facility] Comment on above: Ordered: 01/05/2025 Cytology Cervical or vaginal smear or scraping study Pap Smear Pathology and Cytology Routine Well woman exam with routine gynecological exam Ordered: 01/05/2025 [facility] Work Phone: Comment on above: Ordered: 01/05/2025 Cytology report of Cervical or vaginal smear or scraping Cyto stain.thin prep Pap smear Pathology and Cytology Routine Encounter for gynecological examination without abnormal finding Screening for cervical cancer 08/25/2022 11:59 AM EST [facility] Hemoglobin A1c/Hemoglobin.total in Blood Hemoglobin A1c Lab Routine Missed menses , unspecified gestational age Ordered: 12/22/2024 [facility] Comment on above: Ordered: 12/22/2024 Hepatitis B virus surface Ag [Presence] in Serum or Plasma by Immunoassay Hepatitis B surface antigen Lab Routine Missed menses , unspecified gestational age Ordered: 12/22/2024 [facility] Comment on above: Ordered: 12/22/2024 Hepatitis C virus Ab [Presence] in Serum or Plasma by Immunoassay Hepatitis C antibody Lab Routine Missed menses , unspecified gestational age Ordered: 12/22/2024 [facility] Comment on above: Ordered: 12/22/2024 HIV-1/HIV-2 antigen/antibody combination immunoassay HIV-1 and HIV-2 antibodies Lab Routine Missed menses , unspecified gestational age Ordered: 12/22/2024 [facility] Comment on above: Ordered: 12/22/2024 End: 08-26-2023 Human papilloma virus DNA [Presence] in Unspecified specimen by Probe with signal amplification HPV with reflex genotype Lab Routine Encounter for gynecological examination without abnormal finding Screening for STD (sexually transmitted disease) Screening for cervical cancer 1 Occurrences starting 08/26/2022 until 08/26/2023 [facility] Work Phone: Comment on above: 1 Occurrences starti ng 08/26/2022 until 08/26/2023 Human papilloma viru s DNA [Presence] in Unspecified specimen by Probe with signal amplification HPV with reflex genotype Lab Routine Encounter for gynecological examination without abnormal finding Screening for STD (sexually transmitted disease) Screening for cervical cancer 08/25/2022 11:58 AM EST [facility] Neisseria gonorrhoea e DNA [Presence] in Unspecified specimen by CARLI with probe detection Neisseria gonorrhea DNA probe, direct Lab Routine STD exposure Ordered: 01/05/2025 [facility] Comment on above: Ordered: 01/05/2025 Reagin Ab [Presence] in Serum by RPR RPR Lab Routine Missed menses , unspecified gestational age Ordered: 12/22/2024 [facility] Comment on above: Ordered: 12/22/2024 Rubella antibody, IgG Rubella an tibody, IgG Lab Routine Missed menses , unspecified gestational age Ordered: 12/22/2024 [facility] Comment on above: Ordered: 12/22/2024 SURESWAB(R) ADVANCED VAGINITIS PLUS, TMA SURESWAB(R) ADVANCED VAGINITIS PLUS, TMA Pathology and Cytology Routine Vaginal discharge Ordered: 01/05/2025 [facility] Comment on above: Ordered: 01/05/2025 Immunizations Immunization Date Immunization Notes Care Provider Fa [facility] 01-22-2024 diphtheria, tetanus toxoids and acellular pertussis vaccine, unspecified formulation Frankie Artis MD Work Phone: [facility] 01-22-2024 measles, mumps and r ubella virus vaccine Frankie Artis MD Work Phone: [facility] 01-22-2024 varicella zoster imm une globulin Frankie Artis MD Work Phone: [facility] 07-21-2022 influenza, injectabl e, quadrivalent, preservative free Ej Neuhart [employer] Work Phone: [facility] 07-21-2022 influenza virus vacc ine, unspecified formulation [facility] 06-20-2020 influenza, injectabl e, quadrivalent, preservative free Ej Neuhart [employer] Work Phone: [facility] 06-22-2019 influenza, injectabl e, quadrivalent, preservative free Ej Neuhart [employer] Work Phone: [facility] 11-08-2015 meningococcal polysaccharide (groups A, C, Y and W-135) diphtheria toxoid conjugate vaccine (MCV4P) Ej Neuhart [employer] Work Phone: [facility] 08-28-2010 human papilloma viru s vaccine, quadrivalent Ej Neuhart [employer] Work Phone: [facility] 10-08-2009 hepatitis A vaccine, pediatric/adolescent dosage, 2 dose schedule Ej Neuhart [employer] Work Phone: [facility] 10-08-2009 human papilloma viru s vaccine, quadrivalent Ej Neuhart [employer] Work Phone: [facility] 10-08-2009 influenza virus vacc ine, live, attenuated, for intranasal use Ej Neuhart [employer] Work Phone: [facility] 08-29-2008 human papilloma viru s vaccine, quadrivalent Ej Neuhart [employer] Work Phone: [facility] 08-29-2008 influenza, seasonal, injectable Ej Neuhart [employer] Work Phone: [facility] 08-29-2008 meningococcal polysaccharide (groups A, C, Y and W-135) diphtheria toxoid conjugate vaccine (MCV4P) Ej Neuhart [employer] Work Phone: [facility] 08-29-2008 tetanus toxoid, redu macho diphtheria toxoid, and acellular pertussis vaccine, adsorbed Ej Neuhart [employer] Work Phone: [facility] 05-30-2008 hepatitis A vaccine, pediatric/adolescent dosage, 2 dose schedule Ej Neuhart [employer] Work Phone: [facility] 05-30-2008 hepatitis B vaccine, pediatric or pediatric/adolescent dosage Ej Neuhart [employer] Work Phone: [facility] 05-30-2008 varicella virus vaccine Lisa ssa Neuhart [employer] Work Phone: [facility] 02-17-2003 diphtheria, tetanus toxoids and acellular pertussis vaccine, unspecified formulation Ej Neuhart [employer] Work Phone: [facility] 02-17-2003 measles, mumps and r ubella virus vaccine Ej Neuhart [employer] Work Phone: [facility] 02-17-2003 poliovirus vaccine, inactivated Ej Neuhart [employer] Work Phone: [facility] 02-01-1999 diphtheria, tetanus toxoids and acellular pertussis vaccine, unspecified formulation Ej Neuhart [employer] Work Phone: [facility] 02-01-1999 haemophilus influenz ae type b vaccine, conjugate unspecified formulation Ej Neuhart [employer] Work Phone: [facility] 02-01-1999 trivalent poliovirus vaccine, live, oral Ej Neuhart [employer] Work Phone: [facility] 11-02-1998 measles, mumps and r ubella virus vaccine Ej Neuhart [employer] Work Phone: [facility] 08-10-1998 measles, mumps and r ubella virus vaccine Ej Neuhart [employer] Work Phone: [facility] 08-10-1998 varicella virus vaccine Lisa ssa Neuhart [employer] Work Phone: [facility] 01-31-1998 diphtheria, tetanus toxoids and acellular pertussis vaccine, unspecified formulation Ej Neuhart [employer] Work Phone: [facility] 01-31-1998 haemophilus influenz ae type b vaccine, conjugate unspecified formulation Ej Neuhart [employer] Work Phone: [facility] 1997 diphtheria, tetanus toxoids and acellular pertussis vaccine, unspecified formulation Ej Neuhart [employer] Work Phone: [facility] 1997 haemophilus influenz ae type b vaccine, conjugate unspecified formulation Ej Neuhart [employer] Work Phone: [facility] 1997 poliovirus vaccine, inactivated Ej Neuhart [employer] Work Phone: [facility] 1997 diphtheria, tetanus toxoids and acellular pertussis vaccine, unspecified formulation Ej Neuhart [employer] Work Phone: [facility] 1997 haemophilus influenz ae type b vaccine, conjugate unspecified formulation Ej Neuhart [employer] Work Phone: [facility] 1997 poliovirus vaccine, inactivated Ej Neuhart [employer] Work Phone: [facility] 1997 hepatitis B vaccine, pediatric or pediatric/adolescent dosage Ej Neuhart [employer] Work Phone: [facility] 1997 hepatitis B vaccine, pediatric or pediatric/adolescent dosage Ej Neuhart [employer] Work Phone: [facility] Payers Date Payer Category Payer Private Health Insurance [id number] 2024 Private Health Insurance [id number] 2024 Medicaid [id number] 2024 Medicaid [id number] 2022 Unknown [id number] 2022 Unknown [id number] 2022 Blue Cross Blue Shield [place] ([place] [facility] [id number] 2022-Present [address] [place] [address] [id number] 2022 Blue Cross Blue Shield [id number] 2000 Medicare [id number] 1997 Unknown [id number] 93 1997 Unknown [id number] 93 1997 Unknown [id number] 143 1997 Unknown [id number] 143 1997 Unknown [id number] 143 1997 Unknown [id number] 03 1997 Unknown [id number] 00 1997 Unknown [id number] 259 1997 Unknown [id number] 259 1997 Unknown [id number] [id number] 259 1997 Unknown [id number] 259 1997 Unknown [id number] 259 1997 Unknown [id number] 259 1997 Unknown [id number] 259 1997 Unknown [id number] 259 1959 Unknown [id number] Social History Date Type Detail Facility Start: 07-21-2022 End: 08-27-2023 Tobacco smoking status GAIS [facility] Start: 07-21-2022 End: 08-27-2023 Tobacco use and exposure Smokeless tobacco non-user [facility] Start: 07-21-2022 End: 01-16-2023 Alcohol intake Current drinker of alcohol (finding) [facility] Start: 07-21-2022 Alcohol Comment Occasional only [facility] Start: 1997 Sex Assigned At Not on file T [facility] Start: 07-10-2022 End: 01-16-2023 Exposure to SARS-CoV-2 (event) Not sure [facility] Start: 01-22-2024 Alcohol intake Ex-drinker (finding) [facility] Start: 08-27-2023 End: 01-21-2024 History of Social function [facility] Start: 08-27-2023 End: 01-21-2024 [facility] Utilities [facility] Has the [employer], oil, or water [employer] threatened to shut off services in your home in past 12Mo No [facility] (I/We) worried wheth er (my/our) food would run out before (I/we) got money to buy more. Never true [facility] In the past 12 month s, has lack of transportation kept you from medical appointments or from getting medications? 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 female who presents [...] Noted H/O pre-eclampsia in prior , currently ([facility]) 04/10/2025 History of induced hypertension 04/10/2025 Resolved [...] nursing note reviewed. Exam conducted with a vending machine refiller present. Vitals: Estimated body mass index is 37.73 kg/m as calculated from the following: Height as of 01/31/22: 5' 3 . Weight as of this encounter: 213 lb. BP: 118/72 Patient's last menstrual period was 10/13/2024. ASSESSMENT & PLAN ICD-10-CM 1. Second trimester ([facility]) Z34.92 POCT urinalysis dipstick manually resulted 2. 25 weeks gestation of ([facility]) Z3A.25 3. History of induced hypertension Z87.59 4. H/O pre-eclampsia in prior , currently ([facility]) O09.299 5. Diabetes mellitus screening Z13.1 CBC [...] glucose order to obtain and schedule at [facility]. PVU instructions prior to getting labs drawn. Pt had repeat anatomy US done this morning. Orders Placed This Encounter Procedures CBC Glucose tolerance, 1 hour POCT urinalysis dipstick manually resulted Follow Up: Patient is to return to office in 3 week for routine OB appointment. Documented by Kiki Gaspar MA on behalf of: Quincy Roberts NP documented in this encounter [facility] 03-02-2025 History of Presen t illness Narrative Reason for Appointment: Patient ID: Deirdre Welsh is a 29 y.o. female who presents [...] PROBLEMS Active Ambulatory Problems Diagnosis Date Noted No Active Ambulatory Problems Resolved Ambulatory Problems Diagnosis Date Noted No Resolved Ambulatory Problems No Additional Past Medical History HISTORY PAST MEDICAL HISTORY SOCIAL HISTORY History reviewed. No pertinent past medical history. Social History Tobacco Use Smoking status: Not [...] Exam Constitutional: Appearance: Normal appearance. She is normal weight. HENT: Head: Normocephalic. Cardiovascular: Rate and Rhythm: Normal rate. Pulses: Normal pulses. Pulmonary: Effort: Pulmonary effort is normal. Breath sounds: Normal breath sounds. Abdominal: Palpations: Abdomen is soft. Musculoskeletal: General: Normal range of motion. Neurological: General: No focal deficit present. Mental Status: She is alert and oriented to person, place, and time. Psychiatric: Mood and Affect: Mood normal. Behavior: Behavior normal. Thought Content: Thought content normal. Judgment: Judgment normal. Vitals and nursing note reviewed. Vitals: Estimated body mass index is 36.87 kg/m as calculated from the following: Height as of 01/31/22: 5' 3 . Weight as of this encounter: 208 lb 1.9 oz. BP: 110/68 Patient's last menstrual period was 10/13/2024. ASSESSMENT & PLAN ICD-10-CM 1. Second trimester ([facility]) Z34.92 POCT urinalysis dipstick manually resulted 2. 20 weeks gestation of ([facility]) Z3A.20 POCT urinalysis dipstick manually resulted Return OB: Patient presents today for a routine obstetrics appointment. Patient is currently 20w0d . Patient states she is doing well but has complaints of being tired due to current . Patient has verbalizes frequent movement. labor precautions was discussed/given and patient was instructed to perform kick counts three times a day. Orders Placed This Encounter Procedures POCT urinalysis dipstick manually resulted Follow Up: Patient is to return to office in 4week for routine OB appointment. Documented by KELL George on behalf of: KELL George documented in this encounter [facility] 02-02-2025 History of Presen t illness Narrative Reason for Appointment: Patient ID: Deirdre Welsh is a 29 y.o. female who presents for Routine Visit Patient presents today for Return OB appointment. MEDICATIONS Current Outpatient Medications Medication Instructions cetirizine (ZYRTEC ALLERGY) 10 mg, Daily Vit-Fe Fumarate-FA ( Vitamins) 28-0.8 MG tablet 1 tablet, Oral, Daily ALLERGIES Allergies Allergen Reactions Octacosanol Other Reaction(s): Unknown Amoxicillin Hives, Itching and Rash Other Reaction(s): hives Fluconazole Hives and Rash Other Reaction(s): GI upset, lip swelling PROBLEMS Active Ambulatory Problems Diagnosis Date Noted No Active Ambulatory Problems Resolved Ambulatory Problems Diagnosis Date Noted No Resolved Ambulatory Problems No Additional Past Medical History HISTORY PAST MEDICAL HISTORY SOCIAL HISTORY History reviewed. No pertinent past medical history. Social History Tobacco Use Smoking status: Not [...] nursing note reviewed. Exam conducted with a vending machine refiller present. Vitals: Estimated body mass index is 36.63 kg/m as calculated from the following: Height as of 01/31/22: 5' 3 . Weight as of this encounter: 206 lb 12.8 oz. BP: 110/64 Patient's last menstrual period was 10/13/2024. ASSESSMENT & PLAN ICD-10-CM 1. 16 weeks gestation of Z3A.16 POCT urinalysis dipstick manually resulted Alpha fetoprotein, maternal Alpha fetoprotein, maternal 2. Second trimester Z34.92 POCT urinalysis dipstick manually resulted Alpha fetoprotein, maternal Alpha fetoprotein, maternal 3. Screening, , for anatomic survey Z36.89 US OB 14+ weeks anatomy scan Patient presents today for a routine obstetrics appointment. Patient is currently 16w0d with a Estimated Date of Delivery: 07/20/25. Patient given orders today to schedule anatomy scan and MSAFP to have drawn as well. Patient to return to clinic in 4 weeks for routine OB care. Documented by Akanksha Keys LPN on behalf of: KELL George documented in this encounter [facility] 01-05-2025 History of Presen t illness Narrative Reason for Appointment: Patient ID: Deirdre Welhs is a 29 y.o. female who presents for Routine Visit, Well Women Visit, and STI Screening Patient presents today for Annual Exam. and Return OB appointment. MEDICATIONS Current Outpatient Medications Medication Instructions ondansetron ODT (ZOFRAN-ODT) 4 mg, Oral, Every 6 hours PRN Vit-Fe Fumarate-FA ( Vitamins) 28-0.8 MG tablet 1 tablet, Oral, Daily ALLERGIES Allergies Allergen Reactions Octacosanol Other Reaction(s): Unknown Amoxicillin Hives, Itching and Rash Other Reaction(s): hives Fluconazole Hives and Rash Other Reaction(s): GI upset, lip swelling PROBLEMS Active Ambulatory Problems Diagnosis Date Noted No Active Ambulatory Problems Resolved Ambulatory Problems Diagnosis Date Noted No Resolved Ambulatory Problems No Additional Past Medical History HISTORY PAST MEDICAL HISTORY SOCIAL HISTORY History reviewed. No pertinent past medical history. Social History Tobacco Use Smoking status: Not [...] Constitutional: Appearance: Normal appearance. She is well-developed. Genitourinary: Vulva normal. Breasts: Breasts are soft. Right: Normal. Left: Normal. Cardiovascular: Rate and Rhythm: Normal rate and [...] nursing note reviewed. Exam conducted with a vending machine refiller present. Vitals: Estimated body mass index is 36.51 kg/m as calculated from the following: Height as of 01/31/22: 5' 3 . Weight as of this encounter: 206 lb 1.9 oz. BP: 120/78 Patient's last menstrual period was 10/13/2024. ASSESSMENT & PLAN ICD-10-CM 1. First trimester Z34.91 POCT urinalysis dipstick manually resulted 2. 12 weeks gestation of Z3A.12 POCT urinalysis dipstick manually resulted 3. Nausea and vomiting, unspecified vomiting type R11.2 ondansetron ODT (Zofran-ODT) 4 MG disintegrating tablet 4. Well woman exam with routine gynecological exam Z01.419 Pap Smear 5. Vaginal discharge N89.8 SURESWAB(R) ADVANCED VAGINITIS PLUS, TMA 6. STD exposure Z20.2 CHLAMYDIA TRACHOMATIS (GENITO/STI) Neisseria gonorrhea DNA probe, direct Return OB/Annual Exam: Patient presents today for an annual exam/routine obstetrics appointment. Patient is currently 12w0d . Patient is doing well and states she has complaints of nausea and request testing for BV. Pap/cultures was obtained without difficulty. Patients history has been reviewed in great detail including any potential risks. Patient stated she currently has no complaints. Expectations throughout regarding labs, ultrasounds, and appointments have been discussed with the patient in detail. It was reiterated that the patient is to drink 6-8 glasses of water a day, eat 6 small meals a day, do not consume raw or undercooked meat, and stay away from [facility]. Patient has been consulted regarding any further do's and don'ts of . Patient voiced understanding and all questions and concerns were answered. Discussed with patient about previous concerns in and patient advised to start daily Aspirin 81mg daily. Orders Placed This Encounter Procedures CHLAMYDIA TRACHOMATIS (GENITO/STI) Neisseria gonorrhea DNA probe, direct POCT urinalysis dipstick manually resulted Follow Up: Patient is to return to our office in 4 weeks for routine OB appointment Documented by Akanksha Keys LPN on behalf of: Josiah Childs DO documented in this encounter [facility] 12-22-2024 History of Presen t illness Narrative Reason for Appointment: Patient ID: Deirdre Welsh is a 29 y.o. female who presents for Amenorrhea Patient presents today for a Nurse OB Intake appointment. Patient is 10w0d with a Estimated Date of Delivery: 07/20/25 OB History Para Term AB Living 2 1 1 1 SAB IAB Ectopic Multiple Live Births 1 # Outcome Date GA Lbr Ti[place]/2nd Weight Sex Type Anes PTL Lv 2 Current 1 Term 01/22/24 40w1d / 03:20 8 lb 1.8 oz F Vag-Spont EPI N GALINA Current Medications: has a current medication list which includes the following prescription(s): metronidazole and vitamins. Medical History: Active Ambulatory Problems Diagnosis Date Noted No Active Ambulatory Problems Resolved Ambulatory Problems Diagnosis Date Noted No Resolved Ambulatory Problems No Additional Past Medical History No family history on file. Social History Tobacco Use Smoking status: Not on file Smokeless tobacco: Not on file Substance Use Topics Alcohol use: Not on file Drug use: Not on file No past surgical history on file. Allergies Allergen Reactions Octacosanol Other Reaction(s): Unknown Amoxicillin Hives, Itching and Rash Other Reaction(s): hives Fluconazole Hives and Rash Other Reaction(s): GI upset, lip swelling Vitals: Estimated body mass index is 37.45 kg/m as calculated from the following: Height as of 01/31/22: 5' 3 . Weight as of this encounter: 211 lb 6.4 oz. BP: Patient's last menstrual period was 10/13/2024. Assessment/Plan Diagnoses and all orders for this visit: Missed menses - Type and screen; Future - ABO/Rh; Future - CBC and differential - Hemoglobin A1c - RPR - Rubella antibody, IgG - Hepatitis B surface antigen - Hepatitis C antibody - HIV-1 and HIV-2 antibodies - Urine culture - POCT , urine manually resulted - POCT urinalysis dipstick manually resulted , unspecified gestational age - Type and screen; Future - ABO/Rh; Future - CBC and differential - Hemoglobin A1c - RPR - Rubella antibody, IgG - Hepatitis B surface antigen - Hepatitis C antibody - HIV-1 and HIV-2 antibodies - Rapid drug screen, urine; Future - Vit-Fe Fumarate-FA ( Vitamins) 28-0.8 MG tablet; Take 1 tablet by mouth Daily Encounter for supervision of normal first in first trimester - Rapid drug screen, urine; Future - Vit-Fe Fumarate-FA ( Vitamins) 28-0.8 MG tablet; Take 1 tablet by mouth Daily BV (bacterial vaginosis) - metroNIDAZOLE (Flagyl) 500 MG tablet; Take 1 tablet (500 mg) by mouth in the morning and 1 tablet (500 mg) before bedtime. Do all this for 7 days. Nurse Note: OB Intake: Patient presents today for first OB visit. Patients history has been reviewed in great detail including any potential risks. Patient signed consent forms and patient desires testing in both trimesters. Patient currently has no complaints and has been advised to drink 6-8 glasses of water a day, eat no raw or undercooked meat, and stay away from [facility]. Patient has also been advised to not change litter boxes and eat 6 small meals a day. Patient has been consulted regarding the do's and don'ts of . Patient was given labs and all questions and concerns were answered. Follow Up: Patient is to return in 4 weeks for routine OB appointment. Follow Up: Patient is to have labs drawn at directed and return to office for initial OB appointment with provider. Patient may call office as needed with any concerns or questions. Nurse Visit Completed by: Fanny Del Rio LPN documented in this encounter [facility] 01-24-2024 Obstetrics Note NICU pumping consult completed: -Mom states that pumping is comfortable, denies pain or concern about fit of flange. -Encouraged pumping 8-12x/24hrs, including once in the middle of the night. -Informational handouts and Initiate/Maintain pump settings reviewed. -Reviewed breastmilk storage and transportation, and cleaning/sterilization of pump parts. -Encouraged mom to rent a hospital grade pump at discharge and to request a consult for hands on help with in the NICU once baby is able to go to the breast. -Reminded mom to remove pump parts from hospital pump for use at home and/or with the NICU pumps. -Reviewed hand expression technique, discussed frequency and benefit to milk initiation. Encouraged mom to watch hand expression dvd or recommended on line video. Deirdre is currently pumping with 21mm flanges. Encouraged to increase to 24 mm flanges for appropriate fit. States baby may be discharged today with her. Encouraged follow-up with outpatient after discharge. Aware of helpline and resources available. States she has pump for home use. [facility] 01-24-2024 Miscellaneous Notes NICU pumping consult completed: -Mom states that pumping is comfortable, denies pain or concern about fit of flange. -Encouraged pumping 8-12x/24hrs, including once in the middle of the night. -Informational handouts and Initiate/Maintain pump settings reviewed. -Reviewed breastmilk storage and transportation, and cleaning/sterilization of pump parts. -Encouraged mom to rent a hospital grade pump at discharge and to request a consult for hands on help with in the NICU once baby is able to go to the breast. -Reminded mom to remove pump parts from hospital pump for use at home and/or with the NICU pumps. -Reviewed hand expression technique, discussed frequency and benefit to milk initiation. Encouraged mom to watch hand expression dvd or recommended on line video. Deirdre is currently pumping with 21mm flanges. Encouraged to increase to 24 mm flanges for appropriate fit. States baby may be discharged today with her. Encouraged follow-up with outpatient after discharge. Aware of helpline and resources available. States she has pump for home use. This note was copied from a baby's chart. Arrived for support. Upon entry to room, baby is irritable, Mom is attempting to latch baby. Assisted with positioning and attachment techniques. Unable to latch at this time after several attempts, very irritable. Primary nurse to bedside and states baby will be transferred to NICU due to green emesis and waiting on open NICU bed. Support and encouragement offered to Deirdre. Encouraged to do low cole attempts at followed by pumping. Mom would like to start formula supplementation. Primary nurse will assist and instruct on formula feeding. Deirdre is to follow feeding plan reviewed in consult from this morning until baby is transferred to NICU. Then encouraged pumping 8-12 times/24 hours. Provided with NICU pumping information that we will review prior to discharge. - will follow up 01/23 This note was copied from a baby's chart. Arrived to offer support. Baby is with residential door installer at this time. Deirdre states baby has been latching but is sometimes sleepy. Discussed waking techniques and breat compressions to keep baby active at breast. She states she pumped once since baby was sleepy. She would like LC to observe pumping to verify flange size. Size 21 mm flanges appear appropriate fit and Deirdre reports comfort with pumping. Discussed that flange size may change as milk transition in. Reviewed pump use, cleaning of pump parts and breast milk storage. Reviewed feeding frequency/duration, active/passive feeding, diaper diary, tummy size and indications to pump and supplement with ebm/formula by 48 hours if baby does not actively breast feed or if diaper output is not adequate based on baby's age. Gave mom the plan of: -Low cole attempts at the breast when baby cues. -If baby does not latch with active sucking and swallowing ending in satiety, or if baby is offered a supplement, Mom is to pump/hand express and feed EBM with formula as needed, at least 8-12x/24hrs. -Discussed tummy size and appropriate volume for feeds based on baby's age. -Encouraged skin to skin time -Keep a diaper diary -Reviewed section in Your Guide to and Care and the Temporary Breastpumping handout. -Primary nurse updated. -Will return this afternoon for assistance with direct . This note was copied from a baby's chart. stopped by patient's room to offer support, however mother was asleep at this time. MIV infiltrated. PIV removed. Pt refused restart Called to assist with delivery after 3 hrs of pushing. Mom exhausted, requesting help. Reviewed risks/benefits of operative delivery with forceps. Verbally consented. Epidural anesthesia adequate, bladder drained. Head in direct OA position, +2 station. Extra staff called to room and NICU team in room. Low forceps. Bernal benitahart forceps placed easily with sagittal suture confirmed midline. Pulled steadily while mom pushed over 1 contraction. Easy descent to . Forceps removed and mom pushed with next contraction to deliver head. No nuchal cord.Head tightly retracted against perineum and shoulder dystocia immediately recognized and communicated to team. Right shoulder anterior. We were prepared for this and I had counseled mom on this possibility prior to delivery. No traction applied. Mom instructed to stop pushing. Head of bed down, Nasir did not resolve. Suprapubic pressure not attempted due to maternal abdominal habitus. [place] maneuver performed by placing pressure over the anterior surface of the left shoulder and rotated baby 180 deg counterclockwise. This brought left shoulder to anterior position which was now released from under the pubic bone and mom pushed to deliver right shoulder and body. Infant gave cry with stimulation, Cord clamped and cut after one minute. Baby taken to warmer for more help with transitioning and quickly became very vigorous. Cord gases collected. Total dystocia time approx 15-20 sec. Placenta delivered spontaneously and intact. Intermittent atony which improved with each successive med and massage but continued to recur. She was ultimately given IV pitocin, IM methergine, IM hemabate and 1000 mcg rectal cytotec. Marci was placed after laceration repair with final control of bleeding. Small 2nd deg lac but large vaginal sulcal lac on left side (approx 10 cm long). Both repaired with 3-0 vicryl. Hemostatic. Fundus firm with marci in place. EBL 976 cc. Shoulder dystocia easy to relieve and likely in part precipitated by forceps delivery- I feel she is a good candidate for another vaginal delivery. Female infant [place] G1 now P1001 Debbi Perea MD SHACTOR [facility] Vaginal Delivery Note Diagnosis: Principal Problem: Mother's Information Delivery Blood Loss 01/21/24 1232 - 01/22/24 0111 Quantitative Blood Loss - Delivery (mL) Hospital Encounter 976 mL Total 976 mL Paramjit, Baby Girl Deirdre [[id number]] Delivery Anesthesia Method: Epidural Operative Delivery Forceps attempted?: Yes Time help called: 01/22/202426 Additional provider arrived: 01/22/202426 NICU / NSCU arrived: 01/22/202426 Additional staff arrived: 01/22/202426 Indications: Prolonged Labor, Maternal Fatigue Forceps type: Bernal-Luikart Forceps application location: Low Number of pulls: 4 Total forceps application time: 1 minute Forceps applied by: DR. PEREA Failed?: No Shoulder Dystocia Shoulder dystocia present: Yes Time recognized: 01/22/202430 Time help called: 01/22/202430 Help called by: ALL STAFF NEEDED WERE ALREADY PRESENT FOR FORCEPS ATTEMPT Additional Provider arrived: 01/22/202430 NICU/NSCU arrived: 01/22/202430 Additional staff arrived: 01/22/202430 Gentle attempt at traction, assisted by maternal expulsive forces: Yes Maneuvers performed: Head of bed lowered Head of bed lowered: 01/22/202430 Performed by: Elizabeth Bah and Torie Camacho Maternal response: Tolerated well Maternal Response Comments: Right shoulder stuck Presentation Presentation: Vertex Position: Left _: Occiput _: Anterior Jewell Information date/time: 01/22/2431 Gender: Female Delivery type: Vaginal, Spontaneous Delivery location: OB Unit Provider Present: Indication Initial disposition: Routine NB Care ?: No Details: Delivery Providers Other personnel: Provider Role Covering Attending Resident Fortune Cookie Maker Delivery Nurse Registered Nurse Delivery Assist Gabriela Augustin CNP Nurse Practitioner Cord Cord blood obtained?: No Cord segment obtained?: Yes Gases sent?: Yes Stem cell collection (by Provider)?: No Placenta Date/time: 01/22/202435 Removal: Spontaneous Appearance: Intact Apgars Living status: Living Scoring Cole: 0 1 2 Skin color Blue or pale Acrocyanotic Completely pink Heart rate Absent <100 bpm >100 bpm Reflex irritability No response Grimace Cry or active withdrawal Muscle tone Limp Some flexion Active motion Respiratory effort Absent Weak cry; hypoventilation Good, crying Skin color: Heart rate: Reflex irritability: Muscle tone: Respiratory effort: Total: 1 Minute: 0 2 2 2 2 8 5 Minute: 1 2 2 2 2 9 10 Minute: 15 Minute: 20 Minute: Apgars assigned by: Jalil AUGUSTIN APRN-SVETA Measurements Weight: Lacerations No data filed Other Procedures Procedures: None CTSP for AROM. Cvx /-2. Head well applied. AROM performed in usual fashion with return of lightly-meconium stained fluid. No internal monitors were placed. Pt tolerated procedure well. BP 135/73 Pulse 92 Temp 98.7 F (37.1 C) (Oral) Resp 18 Ht 5' 3 (1.6 m) Wt 103.9 kg (229 lb) SpO2 100% BMI 40.57 kg/m FHT 145, moderate variability, present accels, one small variable decels. [place] q1-4min. Category II Petr Knowles MD 01/21/24 4:03 AM Called by nursing for cervical esteban placement. Patient resting comfortably in bed. VSS: BP (!) 141/90 Pulse 74 Temp 98.3 F (36.8 C) (Oral) Resp 16 Ht 5' 3 (1.6 m) Wt 103.9 kg (229 lb) SpO2 98% BMI 40.57 kg/m Cervix: 80 / -2 BSUS confirmed vertex presentation Esteban coated in betadine and placed in normal sterile fashion, single balloon insufflated with 40cc NS. Pt tolerated procedure well. FHT: 140 / mod hosea / pos accels / no decels TOCO: jennifer irregularly Continue to monitor and manage per attending. Samantha Simeon DO 01/20/24 11:54 PM documented in this encounter [facility] 01-24-2024 History of Presen t illness Narrative Spiritual Care Progress Note Completed by: Susy Reyes Person(s) Present During this Visit: Patient Not Available Time Spent in Direct Patient Care: 15 Narrative: This oil pipe inspector provided introductory visit during pastoral care rounds. Patient unavailable for visit. Family not present at time of visit. Machine Carton Marker left card with information regarding pastoral care services, 30/03 availability, and how to contact a oil pipe inspector. Pastoral Care team will remain available to support patient and family PRN. Patients Response to Pastoral Care: Other (see comment) Planning for Future Visits: PRN 01/24/24 0900 Visit Background Visit With Patient Not Available Visit By Time Clock Inspector Visit Progression Introduction Visit Requested By Machine Carton Marker Initiated Visit Source Machine Carton Marker Initiated Visit Type Rounding Visit Circumstances and Events Routine Visit Visit Length (minutes) 15 Patient's Response to Pastoral Care Other (see comment) Visit Planning PRN Spiritual Assessment Unable to Assess during this visit Congregation Assessment Unable to Assess during this visit Family assessment provided? Unable to asess during this visit Susy Reyes MDiv Time Clock Inspector, Pastoral Care [facility] [phone] Anesthesia Progress Note Assessment / Plan In no acute distress. Awake and alert, LOC x 3. ANKUR x 4, denies LE paresthesias, ambulatory. Denies positional headache, neck pain or stiffness. Questions answered. Temp: [36.7 C-37.3 C] 36.7 C Heart Rate: [83-101] 83 Resp: [16] 16 BP: (116-127)/(74-86) 118/81 PPD 1 PT SLEEPING COMFORTABLY TALKED WITH FOB REPORTS NO ISSUE AFEB VSS ABD APPROPRIATE A/P DOING WELL PP D 1 DISCHARGE TOMORROW DISCUSSED FOLLOW UP PLANS IN LIGHT OF SIGNIFICANT BLOOD LOSS WITH DELIVERY REPEAT H/H TODAY Vaginal Delivery Progress Note Assessment/Plan: Status post Vaginal Delivery: Doing well. Continue routine care. Discharge home ppd 1 or 2 with standard precautions and return to office in 4 weeks. Subjective: Day 0: Vaginal Delivery The patient feels well and is without complaint. She is tolerating po and ambulating without difficulty. Pain is controlled with current medications. Bleeding minimal. AM CBC still pending. . Objective: Vital signs in last 24 hours: Temp: [98 F (36.7 C)-100.6 F (38.1 C)] 98 F (36.7 C) Heart Rate: [66-120] 79 Resp: [15-18] 16 BP: (90-151)/(48-94) 134/89 General: No acute distress Abdomen: Soft, nontender, non-distended Lochia: Appropriate Uterine Fundus: firm, nontender, below umbilicus DVT Evaluation: No evidence of DVT seen on physical exam Sandhya Ramos CNP 01/22/24 8:15 AM Bedside to evaluate Marci balloon. Fundus firm at U. No vaginal bleeding around the Marci device. Suprapubic pressure applied Marci removed without difficulty. Fundus firm at U -1. Vaginal bleeding minimal. Cx 6/c/-2 Well applied Fht cat 1 Continue trial of labor documented in this encounter [facility] 01-24-2024 Hospital Discharg e Nazia Neri RN - 01/24/2024 7:59 AM EDT For Your General Information Regarding COVID-19: The Basics This information was updated November 10, 2019, and aligns with advice from the Centers for Disease Control and Prevention (CDC). For the latest information about the new coronavirus, visit the CDC s website. What is a coronavirus? Coronaviruses are a large family of viruses that can infect people and animals. These kinds of viruses can cause the common cold, or more serious diseases like SARS (severe acute respiratory syndrome), MERS ([place] respiratory syndrome) and COVID-19, which is the newest strain that first appeared in late 2018 in [facility]. The COVID-19 virus has since been carried by travelers to countries around the world. In COVID-19, CO stands for barton, for virus, and D for disease. It has also been called the 2019 novel coronavirus and 2019-nCOV. How does the new coronavirus spread? The new virus is spreading easily from person to person, usually those within about 6 feet of each other. It can spread easier and cause more infections than other coronaviruses because it s a new strain that people haven t yet built an immunity to. The new virus is believed to be spread through respiratory droplets when an infected person sneezes or coughs, just like the flu. These droplets can be inhaled by others or land in their mouths or noses. You may be able to get infected by touching a surface or object that has the virus on it and then touching your mouth, nose or eyes. But it s not thought to be the main way the virus spreads. People appear to be most contagious when they are the sickest or have the most symptoms. Some people have spread the disease without showing any symptoms, but this is less common. What are the symptoms of the new coronavirus? Symptoms seen with this strain range from being mildly sick with fever, cough and shortness of breath, to being severely ill. Most people only develop mild symptoms, but people over 60 and those who have other health condition can develop more serious symptoms, including pneumonia, which can be fatal. How long does it take for symptoms to appear? Symptoms of the new virus are believed to appear two to 14 days after exposure. How can I protect myself? You should follow these tips to reduce your risk of the new coronavirus, as well as any cold, flu or respiratory virus: Avoid close contact with people who are sick. Avoid touching your eyes, nose and mouth with unwashed hands. Wash your hands often with soap and water for at least 20 seconds. Use an alcohol-based arborist representative if soap and water are not available. Disinfect frequently touched objects and surfaces. What should I do if I think I might be infected? You should call your medical provider if you: Feel sick with fever, cough or have difficulty breathing and Have been close to someone infected with the new coronavirus. Or have recently traveled to a location known to have active cases of COVID-19. Call your medical provider before your visit to discuss your risks and symptoms. This will help limit exposure to other people and prepare your provider for an evaluation. If you are sick, do not travel or go out to reduce the possibility of exposing others to your illness. What will happen if they determine I have the new coronavirus? The CDC recommends that anyone who is actively sick with COVID-19 be isolated at home or at a hospital (depending on how sick they are) until they are better or no longer pose a risk of infecting others. This time period can vary from person to person, so the decision to release someone from isolation is made on a [id number] basis by doctors, infection prevention and control experts and public health officials. Disease severity, illness signs and symptoms, and test results are considered. How is the new coronavirus treated? At this time, there is no vaccine or medication for this strain. If you are infected, your medical provider will recommend rest, fluids and medication to control your fever or relieve symptoms. Severe cases will require care to support vital organ functions. What should I expect if I was swabbed to be tested? [facility] is following strict testing criteria for the moment based on risk factors and presenting symptoms. If you had a swab(s) taken today, you will be tested for COVID-19. Most test will result within 48 hours. You will be called by a provider with the results of your test regardless if it is positive or negative. In the meantime, we recommend that you self-quarantine which includes staying home, avoiding close contact with other family members, washing hands frequently and covering your cough. What can I do to help others with COVID-19? Once you are feeling well and symptom free, consider donating plasma. Your antibodies can be used to help treat others that are critically ill from COVID-19. You can find more information to become a plasma donor at http://[email or web address] 4covid or call 2-191-ULB-CROSS ( ). For more information, please visit the CDC website at https://www.cdc.gov/coronavirus /2019-nCoV/index.html. Information is constantly changing as we learn more about this disease. Check back with the website frequently for updates The following attachments cannot be sent through Care Everywhere. (Monegasque) Care: Vaginal : Baby in NICU (Monegasque): Vaginal Delivery (Monegasque)documented in this encounter [facility] 01-23-2024 Obstetrics Note This note was copied from a baby's chart. Arrived for support. Upon entry to room, baby is irritable, Mom is attempting to latch baby. Assisted with positioning and attachment techniques. Unable to latch at this time after several attempts, very irritable. Primary nurse to bedside and states baby will be transferred to NICU due to green emesis and waiting on open NICU bed. Support and encouragement offered to Deirdre. Encouraged to do low cole attempts at followed by pumping. Mom would like to start formula supplementation. Primary nurse will assist and instruct on formula feeding. Deirdre is to follow feeding plan reviewed in consult from this morning until baby is transferred to NICU. Then encouraged pumping 8-12 times/24 hours. Provided with NICU pumping information that we will review prior to discharge. - will follow up 01/23 [facility] 01-23-2024 Obstetrics Note This note was copied from a baby's chart. Arrived to offer support. Baby is with residential door installer at this time. Deirdre states baby has been latching but is sometimes sleepy. Discussed waking techniques and breat compressions to keep baby active at breast. She states she pumped once since baby was sleepy. She would like LC to observe pumping to verify flange size. Size 21 mm flanges appear appropriate fit and Deirdre reports comfort with pumping. Discussed that flange size may change as milk transition in. Reviewed pump use, cleaning of pump parts and breast milk storage. Reviewed feeding frequency/duration, active/passive feeding, diaper diary, tummy size and indications to pump and supplement with ebm/formula by 48 hours if baby does not actively breast feed or if diaper output is not adequate based on baby's age. Gave mom the plan of: -Low cole attempts at the breast when baby cues. -If baby does not latch with active sucking and swallowing ending in infant satiety, or if baby is offered a supplement, Mom is to pump/hand express and feed EBM with formula as needed, at least 8-12x/24hrs. -Discussed tummy size and appropriate volume for feeds based on baby's age. -Encouraged skin to skin time -Keep a diaper diary -Reviewed section in Your Guide to and Care and the Temporary Breastpumping handout. -Primary nurse updated. -Will return this afternoon for assistance with direct . [facility] 01-23-2024 Hospital course Narrative 28 YO P1 WHO UNDERWENT FAVD WITH UNREMARKABLE COURSE documented in this encounter [facility] 01-23-2024 Note PPD 1 PT SLEEPING COMFORTABLY TALKED WITH FOB REPORTS NO ISSUE AFEB VSS ABD APPROPRIATE A/P DOING WELL PP D 1 DISCHARGE TOMORROW DISCUSSED FOLLOW UP PLANS IN LIGHT OF SIGNIFICANT BLOOD LOSS WITH DELIVERY REPEAT H/H TODAY AUTHENTICATED BY FRANKIE ARTIS, ON 01/23/2024 05:59:02 [facility] 01-22-2024 Obstetrics Note This note was copied from a baby's chart. LC stopped by patient's room to offer support, however mother was asleep at this time. [facility] 01-22-2024 Note Formatting of this n ote might be different from the original. MIV infiltrated. PIV removed. Pt refused restart [facility] 01-22-2024 Note Vaginal Delivery Pro mark Note Assessment/Plan: Status post Vaginal Delivery: Doing well. Continue routine care. Discharge home ppd 1 or 2 with standard precautions and return to office in 4 weeks. Subjective: Day 0: Vaginal Delivery The patient feels well and is without complaint. She is tolerating po and ambulating without difficulty. Pain is controlled with current medications. Bleeding minimal. AM CBC still pending. . Objective: Vital signs in last 24 hours: Temp: [98 degrees F (36.7 degrees C)-100.6 degrees F (38.1 degrees C)] 98 degrees F (36.7 degrees C) Heart Rate: [66-120] 79 Resp: [15-18] 16 BP: (90-151)/(48-94) 134/89 General: No acute distress Abdomen: Soft, nontender, non-distended Lochia: Appropriate Uterine Fundus: firm, nontender, below umbilicus DVT Evaluation: No evidence of DVT seen on physical exam Sandhya Ramso CNP 01/22/24 8:15 AM AUTHENTICATED BY SANDHYA RAMOS, ON 01/22/2024 08:17:04 [facility] 01-22-2024 Note Bedside to evaluate Marci balloon. Fundus firm at U. No vaginal bleeding around the Marci device. Suprapubic pressure applied Marci removed without difficulty. Fundus firm at U -1. Vaginal bleeding minimal. AUTHENTICATED BY PETR KNOWLES, ON 01/22/2024 03:05:44 [facility] 01-22-2024 Labor and deliver y summary note Called to assist with delivery after 3 hrs of pushing. Mom exhausted, requesting help. Reviewed risks/benefits of operative delivery with forceps. Verbally consented. Epidural anesthesia adequate, bladder drained. Head in direct OA position, +2 station. Extra staff called to room and NICU team in room. Low forceps. Gabe klein forceps placed easily with sagittal suture confirmed midline. Pulled steadily while mom pushed over 1 contraction. Easy descent to . Forceps removed and mom pushed with next contraction to deliver head. No nuchal cord.Head tightly retracted against perineum and shoulder dystocia immediately recognized and communicated to team. Right shoulder anterior. We were prepared for this and I had counseled mom on this possibility prior to delivery. No traction applied. Mom instructed to stop pushing. Head of bed down, Nasir did not resolve. Suprapubic pressure not attempted due to maternal abdominal habitus. [place] maneuver performed by placing pressure over the anterior surface of the left shoulder and rotated baby 180 deg counterclockwise. This brought left shoulder to anterior position which was now released from under the pubic bone and mom pushed to deliver right shoulder and body. Infant gave cry with stimulation, Cord clamped and cut after one minute. Baby taken to warmer for more help with transitioning and quickly became very vigorous. Cord gases collected. Total dystocia time approx 15-20 sec. Placenta delivered spontaneously and intact. Intermittent atony which improved with each successive med and massage but continued to recur. She was ultimately given IV pitocin, IM methergine, IM hemabate and 1000 mcg rectal cytotec. Marci was placed after laceration repair with final control of bleeding. Small 2nd deg lac but large vaginal sulcal lac on left side (approx 10 cm long). Both repaired with 3-0 vicryl. Hemostatic. Fundus firm with marci in place. EBL 976 cc. Shoulder dystocia easy to relieve and likely in part precipitated by forceps delivery- I feel she is a good candidate for another vaginal delivery. Female infant [place] G1 now P1001 Debib Perea MD SHACTOR [facility] Vaginal Delivery Note Diagnosis: Principal Problem: Mother's Information Delivery Blood Loss 01/21/24 1232 - 01/22/24 0111 Quantitative Blood Loss - Delivery (mL) Hospital Encounter 976 mL Total 976 mL García Welsh [[id number]] Delivery Anesthesia Method: Epidural Operative Delivery Forceps attempted?: Yes Time help called: 01/22/202426 Additional provider arrived: 01/22/202426 NICU / NSCU arrived: 01/22/202426 Additional staff arrived: 01/22/202426 Indications: Prolonged Labor, Maternal Fatigue Forceps type: Bernal-Luikart Forceps application location: Low Number of pulls: 4 Total forceps application time: 1 minute Forceps applied by: DR. PEREA Failed?: No Shoulder Dystocia Shoulder dystocia present: Yes Time recognized: 01/22/202430 Time help called: 01/22/202430 Help called by: ALL STAFF NEEDED WERE ALREADY PRESENT FOR FORCEPS ATTEMPT Additional Provider arrived: 01/22/202430 NICU/NSCU arrived: 01/22/202430 Additional staff arrived: 01/22/202430 Gentle attempt at traction, assisted by maternal expulsive forces: Yes Maneuvers performed: Head of bed lowered Head of bed lowered: 01/22/202430 Performed by: Elizabeth Bah and Torie Camacho Maternal response: Tolerated well Maternal Response Comments: Right shoulder stuck Presentation Presentation: Vertex Position: Left _: Occiput _: Anterior Jewell Information date/time: 01/22/2431 Gender: Female Delivery type: Vaginal, Spontaneous Delivery location: OB Unit Provider Present: Indication Initial disposition: Routine NB Care ?: No Details: Delivery Providers Other personnel: Provider Role Covering Attending Resident Fortune Cookie Maker Delivery Nurse Registered Nurse Delivery Assist Gabriela Augustin CNP Nurse Practitioner Cord Cord blood obtained?: No Cord segment obtained?: Yes Gases sent?: Yes Stem cell collection (by Provider)?: No Placenta Date/time: 01/22/202435 Removal: Spontaneous Appearance: Intact Apgars Living status: Living Scoring Cole: 0 1 2 Skin color Blue or pale Acrocyanotic Completely pink Heart rate Absent <100 bpm >100 bpm Reflex irritability No response Grimace Cry or active withdrawal Muscle tone Limp Some flexion Active motion Respiratory effort Absent Weak cry; hypoventilation Good, crying Skin color: Heart rate: Reflex irritability: Muscle tone: Respiratory effort: Total: 1 Minute: 0 2 2 2 2 8 5 Minute: 1 2 2 2 2 9 10 Minute: 15 Minute: 20 Minute: Apgars assigned by: JERSEY CASTANEDA Jewell Measurements Weight: Lacerations No data filed Other Procedures Procedures: None [facility] Work Phone: 01-21-2024 Note Cx 6/c/-2 Well applied Fht cat 1 Continue trial of labor AUTHENTICATED BY FRANKIE BONE, ON 01/21/2024 10:04:42 [facility] 01-21-2024 Note Formatting of this n ote might be different from the original. CTSP for AROM. Cvx 4/80/-2. Head well applied. AROM performed in usual fashion with return of lightly-meconium stained fluid. No internal monitors were placed. Pt tolerated procedure well. BP 135/73 Pulse 92 Temp 98.7 F (37.1 C) (Oral) Resp 18 Ht 5' 3 (1.6 m) Wt 103.9 kg (229 lb) SpO2 100% BMI 40.57 kg/m FHT 145, moderate variability, present accels, one small variable decels. [place] q1-4min. Category II Petr Knowles MD 01/21/24 4:03 AM [facility] 01-21-2024 History and physical note HISTORY AND PHYSICAL UPDATE Assessment/Plan: Principal Problem: IUP 40 WEEKS. 2. OBESITY. 3. MILD PREECLAMPSIA. Risks, benefits, alternatives and possible complications have been discussed in detail with the patient. Pre-admission, admission, and post admission procedures and expectations were discussed in detail. All questions answered, all appropriate consents will be signed at the Hospital. Admission is for 2 STAGE INDUCTION OF LABOR . Subjective: No chief complaint on file. Deirdre Welsh is a 28 y.o. female with Estimated Date of Delivery: 01/21/24 at 40w0d gestation who is being admitted for induction of labor. Her current obstetrical history is significant for pre-eclampsia. Patient reports no complaints. Movement: normal. The following past medical history, Medical/Surgical/Family/Social history, Medications and Allergies, and Physical Exam have been reviewed and are part of the record and are unchanged. James Foley MD 01/21/2024 12:39 AM T [facility] 01-21-2024 Note HISTORY AND PHYSICAL UPDATE Assessment/Plan: Principal Problem: IUP 40 WEEKS. 2. OBESITY. 3. MILD PREECLAMPSIA. Risks, benefits, alternatives and possible complications have been discussed in detail with the patient. Pre-admission, admission, and post admission procedures and expectations were discussed in detail. All questions answered, all appropriate consents will be signed at the Hospital. Admission is for 2 STAGE INDUCTION OF LABOR . Subjective: No chief complaint on file. Deirdre Welsh is a 28 y.o. female with Estimated Date of Delivery: 01/21/24 at 40w0d gestation who is being admitted for induction of labor. Her current obstetrical history is significant for pre-eclampsia. Patient reports no complaints. Movement: normal. The following past medical history, Medical/Surgical/Family/Social history, Medications and Allergies, and Physical Exam have been reviewed and are part of the record and are unchanged. James Foley MD 01/21/2024 12:39 AM AUTHENTICATED BY JAMES FOLEY, ON 01/21/2024 00:40:36 [facility] 01-21-2024 History and physical note HISTORY AND PHYSICAL UPDATE Assessment/Plan: Principal Problem: IUP 40 WEEKS. 2. OBESITY. 3. MILD PREECLAMPSIA. Risks, benefits, alternatives and possible complications have been discussed in detail with the patient. Pre-admission, admission, and post admission procedures and expectations were discussed in detail. All questions answered, all appropriate consents will be signed at the Hospital. Admission is for 2 STAGE INDUCTION OF LABOR . Subjective: No chief complaint on file. Deirdre Welsh is a 28 y.o. female with Estimated Date of Delivery: 01/21/24 at 40w0d gestation who is being admitted for induction of labor. Her current obstetrical history is significant for pre-eclampsia. Patient reports no complaints. Movement: normal. The following past medical history, Medical/Surgical/Family/Social history, Medications and Allergies, and Physical Exam have been reviewed and are part of the record and are unchanged. James Foley MD 01/21/2024 12:39 AM documented in this encounter [facility] 01-20-2024 Note Formatting of this n ote might be different from the original. Called by nursing for cervical esteban placement. Patient resting comfortably in bed. VSS: BP (!) 141/90 Pulse 74 Temp 98.3 F (36.8 C) (Oral) Resp 16 Ht 5' 3 (1.6 m) Wt 103.9 kg (229 lb) SpO2 98% BMI 40.57 kg/m Cervix:2 / 80 / -2 BSUS confirmed vertex presentation Esteban coated in betadine and placed in normal sterile fashion, single balloon insufflated with 40cc NS. Pt tolerated procedure well. FHT: 140 / mod hosea / pos accels / no decels TOCO: jennifer irregularly Continue to monitor and manage per attending. Samantha Simeon DO 01/20/24 11:54 PM [facility] Work Phone: 01-16-2023 History of Presen t illness Narrative Deirdre, thank you for selecting [facility] for your health care needs. Thank you for coming in today. Ej Burk NP Pending Labs We are currently awaiting the results of your samples. Once the results are returned from the lab, I will review and notify of you of the findings. If results reflect that you need treatment, you will be notified and I will send the medications to your pharmacy. Pt states here today for 6-month chronic care visit. PATIENT'S PCP: Ej Burk NP LAST VISIT IN THIS DEPARTMENT: 08/25/2022 Deirdre MONSON is a 27 y.o. (: 1995) female who presents today for: Chief Complaint Patient presents with Chronic Care Visit (CCV) SUBJECTIVE: 27 year-old female presents to the clinic today for an evaluation of chronic medical conditions. Patient reports that she has a history of bipolar disorder. She states that she tends to do very well for a period of time and then cycles back with her anxiety. She is interested in a consult to psychiatrist. Attempted taking her hydroxyzine that was 50 mg but states that it had increased side effects as she had not taken it in awhile. Has been currently trying to get without success. Review of Systems Constitutional: Negative. Negative for activity change, appetite change, chills, diaphoresis, fatigue, fever and unexpected weight change. HENT: Negative. Negative for congestion, dental problem, ear discharge, ear pain, facial swelling, hearing loss, mouth sores, nosebleeds, postnasal drip, rhinorrhea, sinus pressure, sinus pain, sneezing, sore throat, tinnitus, trouble swallowing and voice change. Eyes: Negative. Negative for photophobia, pain, discharge, redness, itching and visual disturbance. Respiratory: Negative. Negative for cough, chest tightness, shortness of breath and wheezing. Cardiovascular: Negative. Negative for chest pain, palpitations and leg swelling. Gastrointestinal: Negative. Negative for abdominal distention, abdominal pain, anal bleeding, blood in stool, constipation, diarrhea, nausea, rectal pain and vomiting. Endocrine: Negative. Negative for cold intolerance, heat intolerance, polydipsia, polyphagia and polyuria. Genitourinary: Negative. Negative for decreased urine volume, difficulty urinating, dysuria, flank pain, frequency, genital sores, hematuria, menstrual problem, pelvic pain, urgency, vaginal bleeding, vaginal discharge and vaginal pain. Musculoskeletal: Negative. Negative for arthralgias, back pain, gait problem, joint swelling, myalgias, neck pain and neck stiffness. Skin: Negative. Negative for color change, pallor, rash and wound. Breast: Negative for breast skin changes, breast lump or mass and breast pain. Neurological: Negative. Negative for dizziness, tremors, seizures, syncope, facial asymmetry, speech difficulty, weakness, light-headedness, numbness and headaches. Hematological: Negative. Negative for adenopathy. Does not bruise/bleed easily. Psychiatric/Behavioral: Negative for agitation, behavioral problems, confusion, decreased concentration, dysphoric mood, hallucinations, self-injury, sleep disturbance and suicidal ideas. The patient is nervous/anxious. The patient is not hyperactive. All other systems reviewed and are negative. Medical History: Past Medical History: Diagnosis Date Allergic Anxiety Eczema 2019 OBJECTIVE: Visit Vitals BP 116/66 (BP Location: Right arm, Patient Position: Sitting, BP Cuff Size: Adult) Pulse 70 Temp 36.8 C (98.2 F) (Temporal) Resp 14 Ht 1.606 m (63.23 ) Wt 78.5 kg (173 lb) BMI 30.42 kg/m OB Status Having periods Smoking Status Never BSA 1.82 m BP Readings from Last 3 Encounters: 01/16/23 116/66 08/25/22 107/67 07/21/22 133/69 Wt Readings from Last 3 Encounters: 01/16/23 78.5 kg (173 lb) 08/25/22 80.7 kg (178 lb) 07/21/22 80.4 kg (177 lb 3.2 oz) HEALTH MAINTANENCE: There are no preventive care reminders to display for this patient. ALLERGIES: Allergies Allergen Reactions Amoxicillin Hives and Itching Fluconazole Rash MEDICATION: Outpatient Encounter Medications as of 01/16/2023 Medication Sig Dispense Refill cetirizine (ZyrTEC) 10 mg tablet Take 1 tablet (10 mg total) by mouth 1 (one) time each day if needed for allergies. 90 tablet 3 fluticasone propionate (FLONASE) 50 mcg/actuation nasal spray Administer 2 sprays into each nostril 1 (one) time each day. Shake gently. Before first use, prime pump. After use, clean tip and replace cap. 30 mL 3 hydrOXYzine HCL (ATARAX) 50 mg tablet No facility-administered encounter medications on file as of 01/16/2023. IMMUNIZATION HISTORY: Immunization History Administered Date(s) Administered DTaP, Unspecified 1997, 1997, 01/31/1998, 02/01/1999, 02/17/2003 HPV, Quadrivalent 08/29/2008, 10/08/2009, 08/28/2010 Hep A, ped/adol, 2 dose 05/30/2008, 10/08/2009 Hep B, ped/adol, 3 dose 1997, 1997, 05/30/2008 HiB 1997, 1997, 01/31/1998, 02/01/1999 IPV 1997, 1997, 02/17/2003 Influenza LAIV (Nasal) 10/08/2009 Influenza TIV (IM) 08/29/2008 Influenza, injectable, quadrivalent, preservative free 06/22/2019, 06/20/2020, 07/21/2022 MMR 08/10/1998, 11/02/1998, 02/17/2003 Meningococcal MCV4P 08/29/2008, 11/08/2015 OPV 02/01/1999 Pfizer SARS-CoV-2 COVID-19, mRNA, LNP-S, preservative free 11/27/2020, 12/19/2020, 08/12/2021 Tdap 08/29/2008 Varicella 08/10/1998, 05/30/2008 SOCIAL HISTORY: Social History Tobacco Use Smoking status: Never Smokeless tobacco: Never Vaping Use Vaping Use: Never used Substance Use Topics Alcohol use: Yes Comment: Occasional only Drug use: Never PAST SURGICAL HISTORY: History reviewed. No pertinent surgical history. FAMILY HISTORY: Family History Problem Relation Name Age of Onset Asthma Mother Yasmeen Stroke Maternal Grandmother Cherri LABORATORY: No visits with results within 3 Month(s) from this visit. Latest known visit with results is: Office Visit on 08/25/2022 Component Date Value Ref Range Status Bacterial vaginosis 08/25/2022 Negative Negative Final Martha Species 08/25/2022 Negative Negative Final Martha glabrata 08/25/2022 Negative Negative Final Trichomonas vaginosis 08/25/2022 Negative Negative Final N. gonorrhoeae, RNA Probe 08/25/2022 Negative Negative Final Chlamydia, RNA Probe 08/25/2022 Negative Negative Final HPV RNA 08/25/2022 Negative Negative Final Report Status: 08/25/2022 F Final Clinical Information: 08/25/2022 Z01.419, Z12.4 Final LMP: 08/25/2022 08/17/2022 Final Prev. Pap: 08/25/2022 NG Final Prev. Bx: 08/25/2022 NG Final Source: 08/25/2022 Cervix Final Statement of Adequacy: 08/25/2022 SEE NOTE Final Satisfactory for Evaluation Endocervical/Transformation Zone component present General Categorization: 08/25/2022 SEE NOTE Final NEG Interpretation/Result: 08/25/2022 SEE NOTE Final NEGATIVE FOR INTRAEPITHELIAL LESION OR MALIGNANCY Infection: 08/25/2022 SEE NOTE Final No Organisms Detected Test Performed at: [employer] [address] [facility] [place] [address] Bree Baker MD, PhD Comment: 08/25/2022 [place] Final Tutor: 08/25/2022 SEE NOTE Final Screener JBM CT(ASCP) EXPLANATORY NOTE: The Pap is a screening test for cervical cancer. It is not a diagnostic test and is subject to false negative and false positive results. It is most reliable when a satisfactory sample, regularly obtained, is submitted with relevant clinical findings and history, and when the Pap result is evaluated along with historic and current clinical information. This Pap test has been evaluated with computer assisted technology. Review Tutor: 08/25/2022 [facility] Final Pathologist: 08/25/2022 [facility] Final Physical Exam: Physical Exam Vitals and nursing note reviewed. Constitutional: General: She is not in acute distress. Appearance: Normal appearance. She is not ill-appearing. HENT: Head: Normocephalic and atraumatic. Right Ear: External ear normal. Left Ear: External ear normal. Nose: Nose normal. Mouth/Throat: Lips: [place]. Comments: Mask in place during examination. Eyes: General: Lids are normal. No scleral icterus. Right eye: No discharge. Left eye: No discharge. Extraocular Movements: Extraocular movements intact. Conjunctiva/sclera: Conjunctivae normal. Pupils: Pupils are equal, round, and reactive to light. Neck: Vascular: No carotid bruit. Cardiovascular: Rate and Rhythm: Normal rate and regular rhythm. Pulses: Normal pulses. Heart sounds: Normal heart sounds. Pulmonary: Effort: Pulmonary effort is normal. Breath sounds: Normal breath sounds. Abdominal: General: Bowel sounds are normal. Palpations: Abdomen is soft. Tenderness: There is no abdominal tenderness. Comments: Normal for body habitus. Musculoskeletal: General: No swelling or tenderness. Normal range of motion. Cervical back: Normal range of motion and neck supple. No rigidity or tenderness. Lymphadenopathy: Cervical: No cervical adenopathy. Skin: General: Skin is warm and dry. Capillary Refill: Capillary refill takes less than 2 seconds. Neurological: General: No focal deficit present. Mental Status: She is alert. Mental status is at baseline. Psychiatric: Mood and Affect: Mood normal. Behavior: Behavior normal. ASSESSMENT AND PLAN: Adult general medical examination (Primary) - Lipid panel with reflex to direct LDL - Thyroid stimulating hormone - CBC and differential - Comprehensive metabolic panel Bipolar 1 disorder (CMS/HCC) - Ambulatory referral to Psychiatry; Future Seasonal allergies - CBC and differential Patient Instructions Deirdre, thank you for selecting [facility] for your health care needs. Thank you for coming in today. Ej Burk NP Pending Labs We are currently awaiting the results of your samples. Once the results are returned from the lab, I will review and notify of you of the findings. If results reflect that you need treatment, you will be notified and I will send the medications to your pharmacy. FOLLOW-UP: Follow up in about 6 months (around 07/19/2023) for F/u Chronic illnesses. Ej Burk NP documented in this encounter [facility] 08-25-2022 History of Presen t illness Narrative Deirdre, thank you for selecting [facility] for your health care needs. Thank you for coming in today. Ej Burk NP Pending Labs We are currently awaiting the results of your samples. Once the results are returned from the lab, I will review and notify of you of the findings. If results reflect that you need treatment, you will be notified and I will send the medications to your pharmacy. PATIENT'S PCP: Ej Burk NP LAST VISIT IN THIS DEPARTMENT: 07/21/2022 Deirdre MONSON is a 27 y.o. (: 1995) female who presents today for: Chief Complaint Patient presents with Gynecologic Exam Patient states here today for pap smear. SUBJECTIVE: 27 year-old female presents to the clinic today for her gynecological examination. She denies any issues at this time. Occasional vaginal discharge. Review of Systems Constitutional: Negative. Negative for activity change, appetite change, chills, diaphoresis, fatigue, fever and unexpected weight change. HENT: Negative. Negative for congestion, dental problem, ear discharge, ear pain, facial swelling, hearing loss, mouth sores, nosebleeds, postnasal drip, rhinorrhea, sinus pressure, sinus pain, sneezing, sore throat, tinnitus, trouble swallowing and voice change. Eyes: Negative. Negative for photophobia, pain, discharge, redness, itching and visual disturbance. Respiratory: Negative. Negative for cough, chest tightness, shortness of breath and wheezing. Cardiovascular: Negative. Negative for chest pain, palpitations and leg swelling. Gastrointestinal: Negative. Negative for abdominal distention, abdominal pain, anal bleeding, blood in stool, constipation, diarrhea, nausea, rectal pain and vomiting. Endocrine: Negative. Negative for cold intolerance, heat intolerance, polydipsia, polyphagia and polyuria. Genitourinary: Negative. Negative for decreased urine volume, difficulty urinating, dysuria, flank pain, frequency, genital sores, hematuria, menstrual problem, pelvic pain, urgency, vaginal bleeding, vaginal discharge and vaginal pain. Musculoskeletal: Negative. Negative for arthralgias, back pain, gait problem, joint swelling, myalgias, neck pain and neck stiffness. Skin: Negative. Negative for color change, pallor, rash and wound. Breast: Negative for breast skin changes, breast lump or mass and breast pain. Neurological: Negative. Negative for dizziness, tremors, seizures, syncope, facial asymmetry, speech difficulty, weakness, light-headedness, numbness and headaches. Hematological: Negative. Negative for adenopathy. Does not bruise/bleed easily. Psychiatric/Behavioral: Negative. Negative for agitation, behavioral problems, confusion, decreased concentration, dysphoric mood, hallucinations, self-injury, sleep disturbance and suicidal ideas. The patient is not nervous/anxious and is not hyperactive. All other systems reviewed and are negative. Medical History: Past Medical History: Diagnosis Date Allergic Eczema 2019 OBJECTIVE: Visit Vitals BP 107/67 (BP Location: Other (Comment), Patient Position: Sitting, BP Cuff Size: Adult) Comment (BP Location): Right forearm Pulse 74 Temp 37.1 C (98.7 F) (Oral) Resp 14 Ht 1.606 m (63.23 ) Wt 80.7 kg (178 lb) LMP 08/17/2022 (Exact Date) BMI 31.30 kg/m OB Status Having periods Smoking Status Never BSA 1.84 m BP Readings from Last 3 Encounters: 08/25/22 107/67 07/21/22 133/69 Wt Readings from Last 3 Encounters: 08/25/22 80.7 kg (178 lb) 07/21/22 80.4 kg (177 lb 3.2 oz) HEALTH MAINTANENCE: Health Maintenance Due Topic Date Due Cervical Cancer Screening: Pap Smear Never done ALLERGIES: Allergies Allergen Reactions Amoxicillin Hives and Itching Fluconazole Rash MEDICATION: Outpatient Encounter Medications as of 08/25/2022 Medication Sig Dispense Refill cetirizine (ZyrTEC) 10 mg tablet Take 1 tablet (10 mg total) by mouth 1 (one) time each day if needed for allergies. 90 tablet 3 fluticasone propionate (FLONASE) 50 mcg/actuation nasal spray Administer 2 sprays into each nostril 1 (one) time each day. Shake gently. Before first use, prime pump. After use, clean tip and replace cap. 30 mL 3 hydrOXYzine HCL (ATARAX) 50 mg tablet No facility-administered encounter medications on file as of 08/25/2022. IMMUNIZATION HISTORY: Immunization History Administered Date(s) Administered DTaP, Unspecified 1997, 1997, 01/31/1998, 02/01/1999, 02/17/2003 HPV, Quadrivalent 08/29/2008, 10/08/2009, 08/28/2010 Hep A, ped/adol, 2 dose 05/30/2008, 10/08/2009 Hep B, ped/adol, 3 dose 1997, 1997, 05/30/2008 HiB 1997, 1997, 01/31/1998, 02/01/1999 IPV 1997, 1997, 02/17/2003 Influenza LAIV (Nasal) 10/08/2009 Influenza TIV (IM) 08/29/2008 Influenza, injectable, quadrivalent, preservative free 06/22/2019, 06/20/2020, 07/21/2022 MMR 08/10/1998, 11/02/1998, 02/17/2003 Meningococcal MCV4P 08/29/2008, 11/08/2015 OPV 02/01/1999 Pfizer SARS-CoV-2 COVID-19, mRNA, LNP-S, preservative free 11/27/2020, 12/19/2020, 08/12/2021 Tdap 08/29/2008 Varicella 08/10/1998, 05/30/2008 SOCIAL HISTORY: Social History Tobacco Use Smoking status: Never Smokeless tobacco: Never Vaping Use Vaping Use: Never used Substance Use Topics Alcohol use: Yes Comment: Occasional only Drug use: Never PAST SURGICAL HISTORY: History reviewed. No pertinent surgical history. FAMILY HISTORY: Family History Problem Relation Name Age of Onset Asthma Mother Yasmeen Stroke Maternal Grandmother Cherri LABORATORY: Office Visit on 07/21/2022 Component Date Value Ref Range Status Vit D, 25-Hydroxy 07/21/2022 23.0 (L) 30.0 - 100.0 ng/mL Final Deficient <20 ng/mL Insufficient 20 to 30 ng/mL Sufficient 30-100 ng/mL Toxic >100 ng/mL Cholesterol 07/21/2022 137 <200 mg/dL Final Triglycerides 07/21/2022 69 <200 mg/dL Final HDL 07/21/2022 53 >=40 mg/dL Final LDL Calculated 07/21/2022 70 <100 mg/dL Final VLDL Cholesterol Raina 07/21/2022 13.8 2 - 38 mg/dL Final TSH 07/21/2022 0.90 0.45 - 5.33 mcIU/mL Final HIV Combo AB/AG 07/21/2022 Nonreactive Nonreactive Final Hepatitis C Antibody 07/21/2022 Nonreactive Nonreactive Final Sodium 07/21/2022 139 136 - 145 mmol/L Final Potassium 07/21/2022 4.5 3.6 - 5.1 mmol/L Final Chloride 07/21/2022 104 98 - 107 mmol/L Final CO2 07/21/2022 28 22 - 32 mmol/L Final Anion Gap 07/21/2022 7 6 - 18 Final Glucose 07/21/2022 93 70 - 99 mg/dL Final BUN 07/21/2022 15 8 - 20 mg/dL Final Creatinine 07/21/2022 0.61 0.60 - 1.30 mg/dL Final eGFR 07/21/2022 128 >=60 mL/min/1.73m2 Final Effective June 15, 2022, calculation based on the Chronic Kidney Disease Epidemiology Collaboration (CKD-EPI) equation refit without adjustment for race. BUN/Creatinine Ratio 07/21/2022 24.6 (H) 12.0 - 20.0 Final Calcium 07/21/2022 9.0 8.9 - 10.3 mg/dL Final AST (SGOT) 07/21/2022 15 15 - 41 unit/L Final ALT (SGPT) 07/21/2022 13 7 - 52 unit/L Final Alkaline Phosphatase 07/21/2022 46 32 - 91 unit/L Final Total Protein 07/21/2022 7.0 6.1 - 7.9 g/dL Final Albumin 07/21/2022 4.2 3.5 - 4.8 g/dL Final Total Bilirubin 07/21/2022 0.4 0.3 - 1.2 mg/dL Final WBC 07/21/2022 6.0 4.6 - 10.2 K/mcL Final RBC 07/21/2022 4.44 3.74 - 5.34 M/mcL Final Hemoglobin 07/21/2022 13.6 12.0 - 16.0 g/dL Final Hematocrit 07/21/2022 40.5 34.3 - 47.9 % Final MCV 07/21/2022 91.2 80.0 - 97.0 FL Final MCH 07/21/2022 30.6 27.0 - 34.0 pcg Final MCHC 07/21/2022 33.6 30.8 - 35.3 g/dL Final RDW 07/21/2022 12.6 11.0 - 14.8 % Final Platelets 07/21/2022 243 142 - 424 K/mcL Final MPV 07/21/2022 10.3 6.2 - 12.1 FL Final Neutrophils Relative 07/21/2022 68.0 38.1 - 75.5 % Final Lymphocytes Relative 07/21/2022 16.4 (L) 17.9 - 49.6 % Final Monocytes Relative 07/21/2022 10.4 0.0 - 12.0 % Final Eosinophils Relative 07/21/2022 4.2 0.0 - 7.0 % Final Basophils Relative 07/21/2022 0.7 0.0 - 2.0 % Final Immature Granulocytes Relative 07/21/2022 0.3 0.0 - 1.2 % Final Neutrophils Absolute 07/21/2022 4.06 1.80 - 7.70 K/mcL Final Lymphocytes Absolute 07/21/2022 0.98 (L) 1.00 - 4.80 K/mcL Final Monocytes Absolute 07/21/2022 0.62 0.00 - 0.90 K/mcL Final Eosinophils Absolute 07/21/2022 0.25 0.00 - 0.70 K/mcL Final Basophils Absolute 07/21/2022 0.04 0.00 - 0.20 K/mcL Final Immature Granulocytes Absolute 07/21/2022 0.02 0.00 - 0.10 K/mcL Final Physical Exam: Physical Exam Vitals and nursing note reviewed. Constitutional: Appearance: Normal appearance. Cardiovascular: Rate and Rhythm: Normal rate and regular rhythm. Pulses: Normal pulses. Heart sounds: Normal heart sounds. Pulmonary: Effort: Pulmonary effort is normal. Breath sounds: Normal breath sounds. Chest: Chest wall: No mass or swelling. Abdominal: General: Bowel sounds are normal. Palpations: Abdomen is soft. Genitourinary: General: Normal vulva. Exam position: Lithotomy position. Pubic Area: No rash. Labia: Right: No rash, tenderness or lesion. Left: No rash, tenderness or lesion. Urethra: No prolapse, urethral pain, urethral swelling or urethral lesion. Vagina: Normal. No signs of injury. No vaginal discharge, erythema, tenderness or bleeding. Cervix: No cervical motion tenderness, discharge, friability, lesion, erythema or cervical bleeding. Uterus: Normal. Adnexa: Right adnexa normal and left adnexa normal. Right: No mass, tenderness or fullness. Left: No mass, tenderness or fullness. Rectum: Normal. No mass, tenderness, anal fissure or external hemorrhoid. Musculoskeletal: Cervical back: Normal range of motion and neck supple. Skin: General: Skin is warm and dry. Neurological: General: No focal deficit present. Mental Status: She is alert and oriented to person, place, and time. Mental status is at baseline. Psychiatric: Mood and Affect: Mood normal. Behavior: Behavior normal. ASSESSMENT AND PLAN: Encounter for gynecological examination without abnormal finding (Primary) - Vaginitis pathogens molecular study - Chlamydia trachomatis and Neisseria gonorrhoeae, urogenital - Pap smear - HPV with reflex genotype; Future Screening for STD (sexually transmitted disease) - Vaginitis pathogens molecular study - Chlamydia trachomatis and Neisseria gonorrhoeae, urogenital - HPV with reflex genotype; Future Screening for cervical cancer - Pap smear - HPV with reflex genotype; Future Patient Instructions Deirdre thank you for selecting [facility] for your health care needs. Thank you for coming in today. Ej Burk NP Pending Labs We are currently awaiting the results of your samples. Once the results are returned from the lab, I will review and notify of you of the findings. If results reflect that you need treatment, you will be notified and I will send the medications to your pharmacy. FOLLOW-UP: Follow up for Next Scheduled Visit. Ej Burk NP documented in this encounter [facility] 07-21-2022 History of Presen t illness Narrative Deirdre thank you for selecting [facility] for your health care needs. Thank you for coming in today. Ej Burk NP Pending Labs We are currently awaiting the results of your samples. Once the results are returned from the lab, I will review and notify of you of the findings. If results reflect that you need treatment, you will be notified and I will send the medications to your pharmacy. Allergy Medications Zyrtec (cetirizine), Claritin (loratadine) and Meseret (Fexofenadine) are the most commonly used pugy-[id number] allergies/antihistamine medications. You may also benefit from the use of Sudafed (pseudoephedrine). However, if you have high blood pressure/HTN, you should avoid this medication as it is the D medication that can make your blood pressure increase. You may see it included with the above medications such as: Zyrtec-D, Claritin-D or Meseret-D. If you are taking Flonase, use it at bedtime. Lean your head forward, 2 sprays to each nostril. Hold your nose for about 10-15 seconds while your head is still leaning forward. Then go to bed. This prevents gravity from pulling the medicine out of your nose while standing and you will get the most benefit from the medication. If you have high blood pressure, you may use Coricidin. This is designed for individuals suffering from hypertension. PATIENT'S PCP: Ej Burk NP LAST VISIT IN THIS DEPARTMENT: Visit date not found Deirdre MONSON is a 26 y.o. (: 1995) female who presents today for: Chief Complaint Patient presents with Numbness Patient complains of waking up with numbness in both hands X 2-3 months, used to happen before then but not as often, wakes her up twice nightly, seems to think repetitive hands movement from working. Sneezing Complains of sneezing constantly, can't breathe at night, nose drips. It only happens at home, and she has cats, but she has never had this problem before. SUBJECTIVE: 26 year-old female presents to the clinic today for evaluation of her arms, sneezing and to establish care. 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 Also reports a history of allergies with exposures to animals recently. This is with animals that she has also had around her for a significant period of time. Review of Systems Constitutional: Negative. Negative for activity change, appetite change, chills, diaphoresis, fatigue, fever and unexpected weight change. HENT: Negative. Negative for congestion, dental problem, ear discharge, ear pain, facial swelling, hearing loss, mouth sores, nosebleeds, postnasal drip, rhinorrhea, sinus pressure, sinus pain, sneezing, sore throat, tinnitus, trouble swallowing and voice change. Eyes: Negative. Negative for photophobia, pain, discharge, redness, itching and visual disturbance. Respiratory: Negative. Negative for cough, chest tightness, shortness of breath and wheezing. Cardiovascular: Negative. Negative for chest pain, palpitations and leg swelling. Gastrointestinal: Negative. Negative for abdominal distention, abdominal pain, anal bleeding, blood in stool, constipation, diarrhea, nausea, rectal pain and vomiting. Endocrine: Negative. Negative for cold intolerance, heat intolerance, polydipsia, polyphagia and polyuria. Genitourinary: Negative. Negative for decreased urine volume, difficulty urinating, dysuria, flank pain, frequency, genital sores, hematuria, menstrual problem, pelvic pain, urgency, vaginal bleeding, vaginal discharge and vaginal pain. Musculoskeletal: Negative. Negative for arthralgias, back pain, gait problem, joint swelling, myalgias, neck pain and neck stiffness. Skin: Negative. Negative for color change, pallor, rash and wound. Breast: Negative for breast skin changes, breast lump or mass and breast pain. Neurological: Negative. Negative for dizziness, tremors, seizures, syncope, facial asymmetry, speech difficulty, weakness, light-headedness, numbness and headaches. Hematological: Negative. Negative for adenopathy. Does not bruise/bleed easily. Psychiatric/Behavioral: Negative. Negative for agitation, behavioral problems, confusion, decreased concentration, dysphoric mood, hallucinations, self-injury, sleep disturbance and suicidal ideas. The patient is not nervous/anxious and is not hyperactive. All other systems reviewed and are negative. Medical History: Past Medical History: Diagnosis Date Allergic Eczema 2019 OBJECTIVE: Visit Vitals BP 133/69 (BP Location: Right arm, Patient Position: Sitting, BP Cuff Size: Adult) Pulse 70 Temp 36.7 C (98 F) (Skin) Resp 16 Ht 1.606 m (63.23 ) Wt 80.4 kg (177 lb 3.2 oz) BMI 31.16 kg/m Smoking Status Never BSA 1.84 m BP Readings from Last 3 Encounters: 07/21/22 133/69 Wt Readings from Last 3 Encounters: 07/21/22 80.4 kg (177 lb 3.2 oz) HEALTH MAINTANENCE: Health Maintenance Due Topic Date Due Cervical Cancer Screening: Pap Smear Never done DTaP,Tdap,and Td Vaccines (7 - Td or Tdap) 08/29/2018 COVID-19 Vaccine (4 - Booster for Pfizer series) 10/07/2021 Gonorrhea/Chlamydia Screening Never done ALLERGIES: Allergies Allergen Reactions Amoxicillin Hives and Itching MEDICATION: Outpatient Encounter Medications as of 07/21/2022 Medication Sig Dispense Refill hydrOXYzine HCL (ATARAX) 50 mg tablet cetirizine (ZyrTEC) 10 mg tablet Take 1 tablet (10 mg total) by mouth 1 (one) time each day if needed for allergies. 90 tablet 3 fluticasone propionate (FLONASE) 50 mcg/actuation nasal spray Administer 2 sprays into each nostril 1 (one) time each day. Shake gently. Before first use, prime pump. After use, clean tip and replace cap. 30 mL 3 No facility-administered encounter medications on file as of 07/21/2022. IMMUNIZATION HISTORY: Immunization History Administered Date(s) Administered Influenza, injectable, quadrivalent, preservative free 07/21/2022 [employer] SARS-CoV-2 COVID-19, mRNA, LNP-S, preservative free 11/27/2020, 12/19/2020, 08/12/2021 SOCIAL HISTORY: Social History Tobacco Use Smoking status: Never Smokeless tobacco: Never Vaping Use Vaping Use: Never used Substance Use Topics Alcohol use: Yes Comment: Occasional only Drug use: Never PAST SURGICAL HISTORY: History reviewed. No pertinent surgical history. FAMILY HISTORY: Family History Problem Relation Name Age of Onset Asthma Mother Yasmeen Stroke Maternal Grandmother Cherri LABORATORY: Office Visit on 07/21/2022 Component Date Value Ref Range Status Vit D, 25-Hydroxy 07/21/2022 23.0 (L) 30.0 - 100.0 ng/mL Final Deficient <20 ng/mL Insufficient 20 to 30 ng/mL Sufficient 30-100 ng/mL Toxic >100 ng/mL Cholesterol 07/21/2022 137 <200 mg/dL Final Triglycerides 07/21/2022 69 <200 mg/dL Final HDL 07/21/2022 53 >=40 mg/dL Final LDL Calculated 07/21/2022 70 <100 mg/dL Final VLDL Cholesterol Raina 07/21/2022 13.8 2 - 38 mg/dL Final TSH 07/21/2022 0.90 0.45 - 5.33 mcIU/mL Final HIV Combo AB/AG 07/21/2022 Nonreactive Nonreactive Final Hepatitis C Antibody 07/21/2022 Nonreactive Nonreactive Final Sodium 07/21/2022 139 136 - 145 mmol/L Final Potassium 07/21/2022 4.5 3.6 - 5.1 mmol/L Final Chloride 07/21/2022 104 98 - 107 mmol/L Final CO2 07/21/2022 28 22 - 32 mmol/L Final Anion Gap 07/21/2022 7 6 - 18 Final Glucose 07/21/2022 93 70 - 99 mg/dL Final BUN 07/21/2022 15 8 - 20 mg/dL Final Creatinine 07/21/2022 0.61 0.60 - 1.30 mg/dL Final eGFR 07/21/2022 128 >=60 mL/min/1.73m2 Final Effective June 15, 2022, calculation based on the Chronic Kidney Disease Epidemiology Collaboration (CKD-EPI) equation refit without adjustment for race. BUN/Creatinine Ratio 07/21/2022 24.6 (H) 12.0 - 20.0 Final Calcium 07/21/2022 9.0 8.9 - 10.3 mg/dL Final AST (SGOT) 07/21/2022 15 15 - 41 unit/L Final ALT (SGPT) 07/21/2022 13 7 - 52 unit/L Final Alkaline Phosphatase 07/21/2022 46 32 - 91 unit/L Final Total Protein 07/21/2022 7.0 6.1 - 7.9 g/dL Final Albumin 07/21/2022 4.2 3.5 - 4.8 g/dL Final Total Bilirubin 07/21/2022 0.4 0.3 - 1.2 mg/dL Final WBC 07/21/2022 6.0 4.6 - 10.2 K/mcL Final RBC 07/21/2022 4.44 3.74 - 5.34 M/mcL Final Hemoglobin 07/21/2022 13.6 12.0 - 16.0 g/dL Final Hematocrit 07/21/2022 40.5 34.3 - 47.9 % Final MCV 07/21/2022 91.2 80.0 - 97.0 FL Final MCH 07/21/2022 30.6 27.0 - 34.0 pcg Final MCHC 07/21/2022 33.6 30.8 - 35.3 g/dL Final RDW 07/21/2022 12.6 11.0 - 14.8 % Final Platelets 07/21/2022 243 142 - 424 K/mcL Final MPV 07/21/2022 10.3 6.2 - 12.1 FL Final Neutrophils Relative 07/21/2022 68.0 38.1 - 75.5 % Final Lymphocytes Relative 07/21/2022 16.4 (L) 17.9 - 49.6 % Final Monocytes Relative 07/21/2022 10.4 0.0 - 12.0 % Final Eosinophils Relative 07/21/2022 4.2 0.0 - 7.0 % Final Basophils Relative 07/21/2022 0.7 0.0 - 2.0 % Final Immature Granulocytes Relative 07/21/2022 0.3 0.0 - 1.2 % Final Neutrophils Absolute 07/21/2022 4.06 1.80 - 7.70 K/mcL Final Lymphocytes Absolute 07/21/2022 0.98 (L) 1.00 - 4.80 K/mcL Final Monocytes Absolute 07/21/2022 0.62 0.00 - 0.90 K/mcL Final Eosinophils Absolute 07/21/2022 0.25 0.00 - 0.70 K/mcL Final Basophils Absolute 07/21/2022 0.04 0.00 - 0.20 K/mcL Final Immature Granulocytes Absolute 07/21/2022 0.02 0.00 - 0.10 K/mcL Final Physical Exam: Physical Exam Vitals and nursing note reviewed. Constitutional: General: She is not in acute distress. Appearance: Normal appearance. She is not ill-appearing. HENT: Head: Normocephalic and atraumatic. Right Ear: External ear normal. Left Ear: External ear normal. Nose: Nose normal. Mouth/Throat: Lips: [place]. Comments: Mask in place during examination. Eyes: General: Lids are normal. No scleral icterus. Right eye: No discharge. Left eye: No discharge. Extraocular Movements: Extraocular movements intact. Conjunctiva/sclera: Conjunctivae normal. Pupils: Pupils are equal, round, and reactive to light. Neck: Vascular: No carotid bruit. Cardiovascular: Rate and Rhythm: Normal rate and regular rhythm. Pulses: Normal pulses. Heart sounds: Normal heart sounds. Pulmonary: Effort: Pulmonary effort is normal. Breath sounds: Normal breath sounds. Abdominal: General: Bowel sounds are normal. Palpations: Abdomen is soft. Tenderness: There is no abdominal tenderness. Comments: Normal for body habitus. Musculoskeletal: General: No swelling or tenderness. Normal range of motion. Cervical back: Normal range of motion and neck supple. No rigidity or tenderness. Lymphadenopathy: Cervical: No cervical adenopathy. Skin: General: Skin is warm and dry. Capillary Refill: Capillary refill takes less than 2 seconds. Neurological: General: No focal deficit present. Mental Status: She is alert. Mental status is at baseline. Psychiatric: Mood and Affect: Mood normal. Behavior: Behavior normal. ASSESSMENT AND PLAN: Allergic rhinitis, unspecified seasonality, unspecified trigger (Primary) - cetirizine (ZyrTEC) 10 mg tablet; Take 1 tablet (10 mg total) by mouth 1 (one) time each day if needed for allergies. Dispense: 90 tablet; Refill: 3 - fluticasone propionate (FLONASE) 50 mcg/actuation nasal spray; Administer 2 sprays into each nostril 1 (one) time each day. Shake gently. Before first use, prime pump. After use, clean tip and replace cap. Dispense: 30 mL; Refill: 3 Pain in both upper extremities Adult general medical examination - Vitamin D 25 hydroxy - Lipid panel with reflex to direct LDL - Thyroid stimulating hormone - HIV 1, HIV 2 antibody screen, P24 antigen with reflex to differentiation - Hepatitis C antibody screen - CBC and differential - Comprehensive metabolic panel Need for influenza vaccination - Influenza, quadrivalent, preservative free Patient Instructions Deirdre, thank you for selecting [facility] for your health care needs. Thank you for coming in today. Ej Burk NP Pending Labs We are currently awaiting the results of your samples. Once the results are returned from the lab, I will review and notify of you of the findings. If results reflect that you need treatment, you will be notified and I will send the medications to your pharmacy. Allergy Medications Zyrtec (cetirizine), Claritin (loratadine) and Meseret (Fexofenadine) are the most commonly used [id number] allergies/antihistamine medications. You may also benefit from the use of Sudafed (pseudoephedrine). However, if you have high blood pressure/HTN, you should avoid this medication as it is the D medication that can make your blood pressure increase. You may see it included with the above medications such as: Zyrtec-D, Claritin-D or Meseret-D. If you are taking Flonase, use it at bedtime. Lean your head forward, 2 sprays to each nostril. Hold your nose for about 10-15 seconds while your head is still leaning forward. Then go to bed. This prevents gravity from pulling the medicine out of your nose while standing and you will get the most benefit from the medication. If you have high blood pressure, you may use Coricidin. This is designed for individuals suffering from hypertension. FOLLOW-UP: Follow up in about 6 months (around 01/18/2023) for F/u Chronic illnesses. Ej Burk NP documented in this encounter [facility] Evaluation note Diagnosis Allergic rhinitis, unspecified seasonality, unspecified trigger- Primary Pain in both upper extremities Adult general medical examination Unspecified general medical examination Need for influenza vaccination Need for prophylactic vaccination and inoculation against influenza [facility] Diagnosis Encounter for gynecological examination without abnormal finding- Primary Screening for STD (sexually transmitted disease) Screening for cervical cancer Screening for malignant neoplasm of the cervix documented [facility]* Diagnosis Allergic rhinitis, unspecified seasonality, unspecified trigger documented [facility]* Diagnosis Adult general medical examination- Primary Unspecified general medical examination Bipolar 1 disorder ([facility]) Seasonal allergies Allergic rhinitis, cause unspecified documented [facility]* Diagnosis - Primary state, incidental [facility] Diagnosis Missed menses , unspecified gestational age Encounter for supervision of normal first in first trimester BV (bacterial vaginosis) Unspecified vaginitis and vulvovaginitis documented in this encounter [facility]* Diagnosis First trimester state, incidental 12 weeks gestation of Nausea and vomiting, unspecified vomiting type Well woman exam with routine gynecological exam Routine gynecological examination Vaginal discharge Leukorrhea, not specified as infective STD exposure documented in this encounter [facility]* Diagnosis 16 weeks gestation of Second trimester state, incidental Screening, , for anatomic survey Encounter for anatomic survey documented in this encounter [facility]* Diagnosis Second trimester ([facility]) state, incidental 20 weeks gestation of ([facility]) documented [facility]* Diagnosis Second trimester ([facility]) state, incidental 25 weeks gestation of ([facility]) History of induced hypertension H/O pre-eclampsia in prior , currently ([facility]) Diabetes mellitus screening Screening for diabetes mellitus documented [facility]* Attachments The following attachments cannot be sent through Care Everywhere. * Wrist: Exercises (Monegas[place]) [facility] for [facility] (narrative)* Consultation (Routine) - Authorized Specialty Diagnoses / Procedures Referred By Jovita giraldo Referred To Contact Psychiatry Diagnoses Bipolar 1 disorder ([facility]) Ej Burk NP [address] [place] [address] Referral ID Status Reason Start Date Expiration Date Visits Requested Visits Authorized [id number] Authorized Specialty Services Required 01/16/2023 01/16/2024 1 1 [facility] Summary Purpose Family History No Family History Records FoundNo Family History Records FoundNo Family History Records FoundNo Family History Records FoundNo Family History Records FoundNo Family History Records Found Advance Directives No Advanced Directives Records Found Date Activated Date Inactivated Comments 01/22/2024 5:02 AM 01/24/2024 6:06 PM Date Activated Date Inactivated Comments 01/22/2024 12:48 AM 01/22/2024 3:31 AM Date Activated Date Inactivated Comments 01/20/2024 8:58 PM 01/22/2024 12:48 AM Additional Source Comments INFORMATION SOURCE (unrecogn ized section and content) DATE CREATED AUTHOR 03/30/2020 [facility] DATE CREATED AUTHOR AUTHOR'S ORGANIZ ATION 08/28/2021 [facility] DATE CREATED AUTHOR AUTHOR'S ORGANIZ ATION 01/19/2023 [facility] DATE CREATED AUTHOR AUTHOR'S ORGANIZ ATION 08/29/2023 [facility] DATE CREATED AUTHOR AUTHOR'S ORGANIZ ATION 08/02/2024 [facility] DATE CREATED AUTHOR AUTHOR'S ORGANIZ ATION 04/12/2025 [facility] dical Specialists EPIC Reason for Visit (unrecogniz ed section and content) Reason Comments Numbness Patient complains of waking up with numbness in both hands X 2-3 months, used to happen before then but not as often, wakes her up twice nightly, seems to think repetitive hands movement from working. Sneezing Complains of sneezin g constantly, can't breathe at night, nose drips. It only happens at home, and she has cats, but she has never had this problem before. Reason Comments Gynecologic Exam Patient states here today for pap smear. Reason Onset Date Comments Med Refill 11/20/2022 Reason Comments Chronic Care Visit (CCV) Specialty Diagnoses / Procedures Referred By Jovita giraldo Referred To Contact Diagnoses Referral ID Status Reason Start Date Expiration Date Visits Re quested Visits Authorized [id number] 1 1 Reason Comments Amenorrhea Reason Comments Routine Visit [facility] Visit STI Screening Reason Comments Routine Visit Ordered Prescriptions (unrec ognized section and content) Prescription Sig Dispensed Refills Start Date End Da te fluticasone propionate (FLONASE) 50 mcg/actuation nasal sprayIndications:Allerg ic rhinitis, unspecified seasonality, unspecified trigger Administer 2 sprays into each nostril 1 (one) time each day. Shake gently. Before first use, prime pump. After use, clean tip and replace cap. 30 mL 3 07/21/2022 07/21/2023 cetirizine (ZyrTEC) 10 mg tabletIndications:Aller gic rhinitis, unspecified seasonality, unspecified trigger Take 1 tablet (10 mg total) by mouth 1 (one) time each day if needed for allergies. 90 tablet 3 07/21/2022 Prescription Sig Dispensed Refills Start Date End Da te cetirizine (ZyrTEC) 10 mg tabletIndications:Allergic rhinitis, unspecified seasonality, unspecified trigger Take 1 tablet (10 mg total) by mouth 1 (one) time each day if needed for allergies. 90 tablet 3 11/24/2022 Care Teams (unrecognized sec tion and content) Director Underwriter Sales Relationship Specialty Start Date End Date Ej Burk NP [address] [place] [address] PCP - General Family Medicine 07/15/22 Director Underwriter Sales Relationship Specialty Start Date End Date Ej Burk, JAZMIN [address] [place] [id number] PCP - General Family Medicine 07/15/22 Director Underwriter Sales Relationship Specialty Start Date End Date Ej Burk NP [address] [place] [address] PCP - General Family Medicine 07/15/22 Director Underwriter Sales Relationship Specialty Start Date End Date Ej Burk, JAZMIN [address] [place] [id number] PCP - General Family Medicine 07/15/22 Director Underwriter Sales Relationship Specialty Start Date End Date Ej Burk CNP [address] [place] [address] PCP - General 01/13/24 Director Underwriter Sales Relationship Specialty Start Date End Date Unallocated, Elva Waller MD [address] [place] [id number] PCP - General Family Medicine 01/25/24 Director Underwriter Sales Relationship Specialty Start Date End Date Unallocated, Elva Waller MD [address] [place], [place] [address] [address] PCP - General Family Medicine 01/25/24 Director Underwriter Sales Relationship Specialty Start Date End Date Unallocated, [place] [address] PCP - General Family Medicine 01/25/24 Director Underwriter Sales Relationship Specialty Start Date End Date Unallocated, Elva Waller MD [facility] [place] [address] PCP - General Family Medicine 01/25/24 Director Underwriter Sales Relationship Specialty Start Date End Date Unallocated, [place] [address] PCP - General Family Medicine 01/25/24 Director Underwriter Sales Relationship Specialty Start Date End Date Unallocated, Elva Waller MD [place] [address] PCP - General Family Medicine 01/25/24 Director Underwriter Sales Relationship Specialty Start Date End Date Unallocated, Elva Waller [place] [address] PCP - General Family Medicine 01/25/24 Director Underwriter Sales Relationship Specialty Start Date End Date Unallocated, Elva Waller [place] [address] PCP - General Family Medicine 01/25/24 Scheduled Active and Recently Administ ered Medications (unrecognized section and content) Medication Order 01/22/2024 01/23/2024 01/24/2024 ferrous sulfate tablet 325 mg 325 mg, Oral, Daily with breakfast, First dose on Thu01/22/24 at 0800 0957 (Given - Provider: Ayah Briceño RN) 0906 (Given - Provider: Mindy Mendoza, TARYN) 0900 (Given - Provider: Nazia Herbert RN) ibuprofen (ADVIL,MOTRIN) tablet 600 mg 600 mg, Oral, Every 6 hours scheduled, First dose on Thu01/22/24 at 1200, , Give with food. Do not give within 6 hours of other NSAIDS, initial ibuprofen dose or ketorolac (Toradol). Do Not Crush or Chew if administering orally due to bitter taste. May be crushed if given via tube. 1215 (Given - Provider: Ayah Briceño RN)1746 (Given - Provider: Mima Sosa RN) 0050 (Given - Provider: Ally Austin, TARYN)0618 (Given - Provider: Ally Austin, RN)1153 (Given - Provider: Mindy Mendoza RN)1744 (Given - Provider: Gema Christian RN) 0017 (Given - Provider: Ally Austin, TARYN)0600 (Given - Provider: Ally Austin, TARYN)1250 (Given - Provider: Nazia Herbert RN) Continuous Medication Order 01/22/2024 01/23/2024 01/24/2024 ROPivacaine (NAROPIN) 2 mg/mL (0.2 %) PCEA infusion Epidural, Continuous, Starting on [place] 01/21/24 at 0400, Sign and Release, Only the patient is permitted to push the PCEA button., Continous Infusion: 10 mL/hr, PCEA Bolus Dose: 5 mL, PCEA Bolus Lockout Interval: 15 minutes, Number of Boluses per Hour: 4 PRN Medication Order 01/22/2024 01/23/2024 01/24/2024 acetaminophen (TYLENOL) tablet 650 mg 650 mg, Oral, Every 4 hours PRN, mild pain, Starting on [place] 01/21/24 at 0305, Sign and Release 0938 (Due) acetaminophen (TYLENOL) tablet 650 mg 650 mg, Oral, Every 4 hours PRN, mild pain, Starting on 01/22/24 at 0502, 0957 (Given - Provider: Ayah Briceño RN) aluminum-magnesium hydroxide-simethicone (MAALOX PLUS) 200-200-20 mg/5 mL suspension 30 mL 30 mL, Oral, Every 4 hours PRN, indigestion, Starting on 01/22/24 at 0502, carboprost (HEMABATE) injection 250 mcg (COMPLETED) 250 mcg, Intramuscular, Once as needed, hemorrhage, Starting on Thu01/22/24 at 0048, For 1 dose, Labor & Delivery, Only give as directed by physician Do not administer to asthmatics. 0057 (Given - Provider: Claudia Bah RN) carboprost (HEMABATE) injection 250 mcg 250 mcg, Intramuscular, Once as needed, hemorrhage, Starting on Thu01/22/24 at 0502, For 1 dose, , Only give as directed by physician Do not administer to asthmatics. diphenhydrAMINE (BENADRYL) injection 25 mg(Linked Group 1) 25 mg, Intravenous, Every 6 hours PRN, itching, Starting on Thu01/22/24 at 0502, , Use oral route first, if tolerated. For IV administration, give at a rate less than or equal to 25 mg/min diphenhydrAMINE (BENADRYL) tablet 25 mg(Linked Group 1) 25 mg, Oral, Every 6 hours PRN, itching, Starting on Thu01/22/24 at 0502, , Use oral route first, if tolerated. diptheria, tetanus toxoid, acellular pertusssis (ADACEL) injection 0.5 mL 0.5 mL, Intramuscular, Prior To Discharge, Based on vaccine assessment, Starting on Thu01/22/24 at 0502, For 1 dose, , If not previously vaccinated for pertussis. Complete Vaccine Assessments. If indicated, administer prior to discharge. Provide CDC vaccine information sheet(s) (VIS) for patient for vaccines administered. Tip cap contains LATEX. Use caution when handling if you have a latex allergy. Okay to administer to patient with latex allergy docusate sodium (COLACE) capsule 100 mg 100 mg, Oral, 2 times daily PRN, constipation, Starting on Thu01/22/24 at 0502, , Hold for loose stools DO NOT CRUSH OR CHEW. 0957 (Given - Provider: Ayah Briceño, TARYN)2102 (Given - Provider: Mima Sosa, TARYN) 0906 (Given - Provider: Mindy Mendoza, TARYN) 0017 (Given - Provider: Ally Austin, TARYN)1250 (Given - Provider: Nazia Herbert, TARYN) HYDROmorphone (DILAUDID) injection 0.5 mg (COMPLETED) 0.5 mg, Intravenous, Once as needed, Pain Associated with Hemorrhage Management., Starting on Thu01/20/24 at 2057, For 1 dose, Labor & Delivery 0208 (Given - Provider: Claudia Bah, RN) HYDROmorphone (DILAUDID) injection 0.5 mg 0.5 mg, Intravenous, Every 15 min PRN, While on Epidural, for moderate to severe breakthrough pain, Starting on [place] 01/21/24 at 0305, Sign and Release, Use IV if moderate to severe pain persists 30 minutes after one dose of sublingual oxycodone or morphine, or if sublingual route not ordered. Do not exceed 1 mg per hour. Call anesthesia if moderate to severe pain persists 15 minutes after a second IV dose given within an hour. 0309 (Given - Provider: Claudia Bah RN) HYDROmorphone (DILAUDID) injection 0.5 mg 0.5 mg, Intravenous, Once as needed, Pain Associated with Hemorrhage Management., Starting on Thu01/22/24 at 0502, For 1 dose, ibuprofen (ADVIL,MOTRIN) tablet 800 mg (COMPLETED) 800 mg, Oral, Once as needed, mild pain, Starting on Thu01/22/24 at 0048, For 1 dose, Labor & Delivery, Administer after delivery Give with food. DO NOT GIVE WITH TORADOL Do Not Crush or Chew if administering orally due to bitter taste. May be crushed if given via tube. 0309 (Given - Provider: Claudia Bah RN) loperamide (IMODIUM) capsule 2 mg 2 mg, Oral, 4 times daily PRN, diarrhea, Starting on Thu01/22/24 at 0051, Do not exceed 16 MG (8 caps)/ 24 HRS 0112 (Given - Provider: Claudia Bah RN) measles, mumps and rubella vaccine (MMR) 1,000-12,500 TCID50/0.5 mL injection 0.5 mL 0.5 mL, Subcutaneous, Prior To Discharge, administer vaccine prior to discharge, Based on vaccine assessment, Starting on Thu01/22/24 at 0502, For 1 dose, , If indicated and not previously vaccinated. Complete Vaccine Assessments. If indicated, administer prior to discharge. Provide CDC vaccine information sheet(s) (VIS) for patient for vaccines administered. methylergonovine (METHERGINE) injection 200 mcg 200 mcg, Intramuscular, Once as needed, hemorrhage, Starting on Thu01/22/24 at 0502, For 1 dose, , Only give as directed by physician DO NOT ADMINISTER IF BP greater than 140/90 or pre-existing hypertension. CATEGORY B HAZARDOUS DRUG use safe handling precautions. Use reference link to view PPE guidelines. Safe handling precautions only required when in the third trimester. EMERGENCY Hazardous Drug use professional judgement when deviating from standard handling precautions. methylergonovine (METHERGINE) injection (COMPLETED) Intramuscular, Code/trauma/sedation medication, Starting on Thu01/22/24 at 0058 0058 (Given - Provider: Claudia Bah RN) miSOPROStoL (CYTOTEC) tablet 1,000 mcg 1,000 mcg, Rectal, Once as needed, hemorrhage, Starting on Thu01/22/24 at 0502, For 1 dose, , Only give as directed by physician Hazardous Medication. Use safe handling precautions CATEGORY D HAZARDOUS DRUG use safe handling precautions. Use reference link to view PPE guidelines. Minimize crushing/splitting only to situations where clinically necessary. nalbuphine (NUBAIN) injection 2.5 mg 2.5 mg, Intravenous, Every 6 hours PRN, itching, Starting on [place] 01/21/24 at 0305, Sign and Release, For itching while Epidural Infusion orders in effect. naloxone (NARCAN) 0.4 mg in sodium chloride 0.9 % (NS) 100 mL infusion 0.04 mg/hr (10 mL/hr), Intravenous, Continuous PRN, itching, Starting on [place] 01/21/24 at 0305, Sign and Release, For itching while Epidural Orders in effect if nalbuphine (NUBAIN) and diphenhydramine (BENADRYL) ineffective or not ordered. naloxone (NARCAN) injection 0.1 mg(Linked Group 2) 0.1 mg, Intravenous, As needed, opioid reversal, Respiratory rate less than 8 per minute, Starting on [place] 01/21/24 at 0305, Sign and Release, Mix nalOXone (NARCAN) 0.4 mg (1ml) with 9 mL of Normal Saline to total 10 mL. Administer 0.1 mg (2.5ml) IV Push every 2 minutes until respiratory rate is 10 or greater. While on EPIDURAL infusion. naloxone (NARCAN) injection 0.1 mg(Linked Group 3) 0.1 mg, Intravenous, As needed, opioid reversal, For respiratory rate less than or equal to 8 per minute., Starting on Thu01/22/24 at 0502, , Mix nalOXone (NARCAN) 0.4 mg (1mL) with 9 mL of Normal Saline to total 10 mL. Administer 0.1 mg (2.5mL) IV Push every 2 minutes until respiratory rate is 10 or greater. naloxone (NARCAN) injection 0.4 mg(Linked Group 2) 0.4 mg, Intravenous, As needed, opioid reversal, patient is pulseless, breathless, and unresponsive, Starting on [place] 01/21/24 at 0305, Sign and Release, Call a code first, then administer naloxone dose undiluted IV Push over 30 seconds. While on EPIDURAL infusion. naloxone (NARCAN) injection 0.4 mg(Linked Group 3) 0.4 mg, Intravenous, As needed, opioid reversal, patient is pulseless, breathless, and unresponsive, Starting on Thu01/22/24 at 0502, , Call a code first, then administer naloxone dose undiluted IV Push over 30 seconds. ondansetron (ZOFRAN) injection 4 mg(Linked Group 4) 4 mg, Intravenous, Every 6 hours PRN, nausea, vomiting, Starting on Thu01/22/24 at 0502, , Use oral route first, if tolerated. ondansetron (ZOFRAN-ODT) disintegrating tablet 4 mg(Linked Group 4) 4 mg, Oral, Every 6 hours PRN, nausea, vomiting, Starting on Thu01/22/24 at 0502, , Use oral route first, if tolerated. Formulation requires tablet remain in sealed package until immediately prior to dose being administered. oxyCODONE (ROXICODONE) immediate release tablet 5-10 mg 5-10 mg, Oral, Every 4 hours PRN (may repeat), moderate to severe pain, Starting on Thu01/22/24 at 0502, , Initiate with 5 mg every 4 hours as needed for moderate to severe pain. For UNrelieved pain, may repeat 5 mg dose within 60 minutes of first dose. If pain is RELIEVED after repeat dose, change to 10 mg oral every 4 hours as needed for moderate to severe pain. If pain is UNrelieved after repeat dose, or patient requires dose reduction, call physician. oxytocin (HIGH DOSE) in LR (PITOCIN) 40 unit/ 1,000 mL infusion Soln 40 Units Intravenous, at 4,000 mL/hr, Once as needed, hemorrhage, Starting on Thu01/22/24 at 0502, For 1 dose, , Only give as directed by physician CATEGORY B HAZARDOUS DRUG use safe handling precautions. Use reference link to view PPE guidelines. Safe handling precautions only required when in the third trimester. EMERGENCY Haz Drug use professional judgement when deviating from standard handling precautions. rho(d) immune globulin (RHOPHYLAC) injection 300 mcg(Linked Group 5) 300 mcg, Intramuscular, Once as needed, IF patient is Rh Negative - administer if indicated (per lab), Starting on Thu01/22/24 at 0502, For 1 dose, , Use IV route, if available. rho(d) immune globulin (RHOPHYLAC) injection 300 mcg(Linked Group 5) 300 mcg, Intravenous, Once as needed, IF patient is Rh Negative - administer if indicated (per lab), Starting on Thu01/22/24 at 0502, For 1 dose, , Use IV route, if available. Do not give with other IV medications. simethicone (MYLICON) chewable tablet 80 mg 80 mg, Oral, After meals as needed, flatulence, gas discomfort, Starting on Thu01/22/24 at 0502, sodium chloride 0.9% (NS) 0-150 mL/hr, Intravenous, As needed, To flush line after IV infusions when no maintenance IV ordered or a compatibility issue. Infuse 20mL at the same rate as the secondary infusion, Starting on Thu01/22/24 at 0502, L&D Post-Delivery, Run as Primary IV. NOT intended for KVO. sodium chloride 0.9% (NS) 125 mL/hr, Intravenous, Once as needed, hemorrhage, Starting on Thu01/22/24 at 0502, For 1 dose, , Only give as directed by physician Start second IV with Blood Transfusion tubing. tranexamic acid in NaCl (CYLOKAPRON) IVPB 1,000 mg 1,000 mg, Intravenous, Administer over 10 Minutes, Once as needed, hemorrhage, Starting on Thu01/22/24 at 0502, For 1 dose, , Only give as directed by physician. This is the FIRST DOSE, and should be given IF DIRECTED within 3 hours of . MAXIMUM TOTAL dose of 2000 mg. tranexamic acid in NaCl (CYLOKAPRON) IVPB 1,000 mg 1,000 mg, Intravenous, Administer over 10 Minutes, Once as needed, hemorrhage, Starting on Thu01/22/24 at 0502, For 1 dose, , Only give as directed by physician. This is a REPEAT DOSE, and should be given IF DIRECTED if bleeding continues 30 minutes after administration of the First Dose, or if bleeding stops and then restarts within 24 hours of administering the First Dose. MAXIMUM TOTAL dose of 2000 mg. varicella virus vacc live (PF) (VARIVAX) injection 0.5 mL 0.5 mL, Subcutaneous, Prior To Discharge, administer vaccine prior to discharge, Based on vaccine assessment, Starting on Thu01/22/24 at 0502, For 1 dose, , If not previously vaccinated. Complete Vaccine Assessments. If indicated, administer prior to discharge. Provide [facility] vaccine information sheet(s) (VIS) for patient for vaccines administered. Linked Groups Order Group 1: diphenhydrAMINE (BENADRYL) tablet 25 mgJump to med 25 mg, Oral, Every 6 hours PRN, itching, Starting on Thu01/22/24 at 0502, , Use oral route first, if tolerated. Or diphenhydrAMINE (BENADRYL) injection 25 mgJump to med 25 mg, Intravenous, Every 6 hours PRN, itching, Starting on Thu01/22/24 at 0502, , Use oral route first, if tolerated. For IV administration, give at a rate less than or equal to 25 mg/min Group 2: naloxone (NARCAN) injection 0.1 mgJump to med 0.1 mg, Intravenous, As needed, opioid reversal, Respiratory rate less than 8 per minute, Starting on [place] 01/21/24 at 0305, Sign and Release, Mix nalOXone (NARCAN) 0.4 mg (1ml) with 9 mL of Normal Saline to total 10 mL. Administer 0.1 mg (2.5ml) IV Push every 2 minutes until respiratory rate is 10 or greater. While on EPIDURAL infusion. And Notify physician (CANCELED) STAT, Until discontinued, Starting on [place] 01/21/24 at 0306, Until Specified, Respiratory rate less than: 8, For respiratory rate less than or equal to 8 per minute, notify physician and/or appropriate staff for additional orders. While on EPIDURAL infusion., Sign and Release And naloxone (NARCAN) injection 0.4 mgJump to med 0.4 mg, Intravenous, As needed, opioid reversal, patient is pulseless, breathless, and unresponsive, Starting on [place] 01/21/24 at 0305, Sign and Release, Call a code first, then administer naloxone dose undiluted IV Push over 30 seconds. While on EPIDURAL infusion. Group 3: naloxone (NARCAN) injection 0.1 mgJump to med 0.1 mg, Intravenous, As needed, opioid reversal, For respiratory rate less than or equal to 8 per minute., Starting on Thu01/22/24 at 0502, , Mix nalOXone (NARCAN) 0.4 mg (1mL) with 9 mL of Normal Saline to total 10 mL. Administer 0.1 mg (2.5mL) IV Push every 2 minutes until respiratory rate is 10 or greater. And Notify physician (CANCELED) STAT, Until discontinued, Starting on Thu01/22/24 at 0503, Until Specified, Respiratory rate less than: 8, For respiratory rate less than or equal to 8, notify physician and/or appropriate staff for additional orders., And naloxone (NARCAN) injection 0.4 mgJump to med 0.4 mg, Intravenous, As needed, opioid reversal, patient is pulseless, breathless, and unresponsive, Starting on Thu01/22/24 at 0502, , Call a code first, then administer naloxone dose undiluted IV Push over 30 seconds. Group 4: ondansetron (ZOFRAN-ODT) disintegrating tablet 4 mgJump to med 4 mg, Oral, Every 6 hours PRN, nausea, vomiting, Starting on Thu01/22/24 at 0502, , Use oral route first, if tolerated. Formulation requires tablet remain in sealed package until immediately prior to dose being administered. Or ondansetron (ZOFRAN) injection 4 mgJump to med 4 mg, Intravenous, Every 6 hours PRN, nausea, vomiting, Starting on Thu01/22/24 at 0502, , Use oral route first, if tolerated. Group 5: rho(d) immune globulin (RHOPHYLAC) injection 300 mcgJump to med 300 mcg, Intramuscular, Once as needed, IF patient is Rh Negative - administer if indicated (per lab), Starting on Thu01/22/24 at 0502, For 1 dose, , Use IV route, if available. Or rho(d) immune globulin (RHOPHYLAC) injection 300 mcgJump to med 300 mcg, Intravenous, Once as needed, IF patient is Rh Negative - administer if indicated (per lab), Starting on Thu01/22/24 at 0502, For 1 dose, , Use IV route, if available. Do not give with other IV medications. FOR RECORDS PERTAINING TO PATIENTS WHO ARE OR HAVE BEEN ENROLLED IN A CHEMICAL DEPENDENCY/SUBSTANCEABUSE PROGRAM, SOME INFORMATION MAY BE OMITTED. This clinical summary was aggregated from multiple sources. Caution should be exercised in using it in the provision of clinical care. This summary normalizes information from multiple sources, and as a consequence, information in this document may materially change the coding, format and clinical context of patient data. In addition, data may be omitted in some cases. CLINICAL DECISIONS SHOULD BE BASED ON THE PRIMARY CLINICAL RECORDS. [facility] [employer] [facility]. provides no warranty or guarantee of the accuracy or completeness of information in this document.
[2025-04-21 11:50] LABS: Hematocrit 35.3 % (36.0-48.0); Hemoglobin 11.9 g/dL (12.0-16.0); Immature Granulocytes Abs Auto 0.02 10^3/uL (0.00-0.03); Immature Granulocytes Pct Auto 0.2 % (0.0-0.5); Lymphocytes Absolute Auto 0.9 10^3/uL (1.2-3.8); Mean Corpuscular HGB Conc 33.7 g/dL (29.9-35.2); Mean Corpuscular Hemoglobin 31.6 pg (26.7-34.0); Mean Corpuscular Volume 93.9 fL (81.0-99.0); Platelet Count 163 10^3/uL (150-450); Red Blood Count 3.76 10^6/uL (4.20-5.40); White Blood Count 8.6 10^3/uL (4.0-11.0)
[2025-04-21 12:15] LABS: Glucose 1 Hour 160 mg/dL (<130)
== END 2025-04-21 10:27 | disposition home or self-care (01) ==
LOC: LAB 10:28
PROVIDERS: Visit Provider Nurse Practitioner Family
DX: Z13.1 Encounter for screening for diabetes mellitus (principal)
CPT/HCPCS: 36415; 82950; 85025

== ENCOUNTER 2025-04-28 07:34 | Outpatient (OUT) | payer OTHER, SELFPAY ==
--- OUTSIDE RECORDS SUMMARY | 2025-04-28 07:37 | XMS_ITS | CCD ---
Author Organization [facility] ion [facility] Care Team Providers Care Driller'S Offsider Name Role Phone ROSALEE LR Admitting Unavailable ROSALEE LR Attending Unavailable ROSALEE LR Consulting Unavailable TIMHERIBERTO CARLOS Admitting Unavailable HERIBERTO JHA Attending Unavailable MISC, DOCTOR Primary Care Unavailable TIMNELY CARLOSARY Consulting Unavailable WYATT CURRAN Consulting Unavailable Neuhart RESEARCH PROFESSIONAL, Ej Primary Care Provider Rhiannon RESEARCH PROFESSIONAL, Ej Primary Care Provider EJ BURK Attending Unavailable NEUHART, EJ Primary Care Unavailable NEUEJ HAWKINS Attending Unavailable NEUHART, EJ Primary Care Unavailable NEUSINCERET, EJ Primary Care Unavailable NEUROSS EJ Attending Unavailable PAMELA WILLIAM Attending Unavailabl e NO, PHYSICIAN Primary Care Unavailable Neuhart Agustin BANGURAessa Primary Care Provider FRANKIE ARTIS Attending Unavailab JAMES Muñoz Admitting Unavailable NO, PHYSICIAN Primary Care Unavailable [place] [place] [facility] GENERIC C onsulting Unavailable Unallocated MD, Noms Provider Primary Care Provi layo JOSIAH CHILDS Attending Unavailable ERNESTINE LÓPEZ Attending Unavailable ERNESTINE LÓPEZ Attending Unavailable QUINCY ROBERTS Attending Unavailable JOSIAH CHILDS Attending Unavailable Allergies Allergy Classification Reported Allergen(s) Allergy Type Date of Onset Reaction(s) Facility (20 sources) Amoxicillin; Translations: [AMOXICILLIN] Drug Allergy 7 Hives, Itching, Rash [employer] (6 sources) Fluconazole; Translations: [FLUCONAZOLE] Drug Allergy 1 Rash, Hives [employer] Work Phone: (17 sources) Fluconazole Allergy to substance 1 Hives, Rash [facility] (17 sources) Octacosanol Drug Intolerance 5 [facility] Healthcare Medications Current Medications Medication Drug [...] tablet levocetirizine dihydrochloride 5 mg oral tablet (7 sources) Histamine-1 Receptor Antagonist take 1 tablet [...] 7 days. 14 tablet 12/22/2024 12/29/2024 Active prenat.vits,raina,spf-cgmo-uas ic Tab (2 sources) prenat.vits,raina, ezg-ncjh-dkgzh Tab Take by mouth . 0 Active prenat.vits,raina, wkh-czot-dadxs Tab Take by mouth . 0 Vit-Fe Fumarate-FA ( Vitamins) 28-0.8 MG tablet (17 sources) Start: 12-22-2024 End: 12-22-2025 take 1 tablet by mouth once daily Vit-Fe Fumarate-FA ( Vitamins) 28-0.8 MG tablet Indications: , unspecified gestational age ([facility]) , Encounter for supervision of normal first in first trimester ([facility]) Take 1 tablet by mouth Daily [...] 4 mg (1 source) Start: 01-22-2024 End: 05-19-2024 take 1 tablet by mouth every six [...] vomiting, unspecified] 01-05-2025 Episodic Other complications of (6 sources) History of pre-eclampsia; Translations: [Supervision of [...] of ] 04-10-2025 Episodic Residual codes; unclassified (6 sources) H/O: hypertension; Translations: [Personal history of [...] Name Value Interpretation Reference Range Facil ity GLUCOSE 1 HOURon 04-21-2025 Glucose [Mass/Vol] 160 mg/dL High NINF - 13 0 mg/dL [facility] Interpretation and review of laboratory results Abnormal [facility] US OB LIMITED 1+ FETUSESon 0 04-10-2025 [...] UA Negative Negative - 4(70) +++ mg/dL [facility] Blood, UA Negative Negative - 50 Hernan/mcL [facility] Clarity, UA Clear [facility] Color, UA Yellow [facility] Glucose, UA Negative Negative - 2000(110) ++++ mg/dL [facility] Interpretation and review of laboratory results Normal [facility] Ketones, UA Negative Negative - 160(16) ++++ mg/dL [facility] Leukocytes, UA Negative Negative - 500+++ Deana/mcL [facility] Nitrite, UA Negative Negative - Positive [facility] pH, UA 6 5 - 9 [facility] Protein, UA Negative Negative - 2000(20) ++++ mg/dL [facility] Spec Grav, UA 1.015 1 - 1.03 [facility] Urobilinogen, UA 1.0 0.2 - 12 mg/dL [facility] AFP, SERUM, OPEN SPINA BIFID Aon 03-04-2025 AFP MOM 0.55 . [facility] AFP VALUE 25.7 ng/mL . [facility] COMMENT: Comment . [facility] Comment on above: Sidra Da Silva , Ph.D., [facility] Director References: Available Upon Request. Multiples Of Median Cutoffs For AFP Elevations Root 2.5 Black 2.8 IDD 2.0 Twins 4.5 Abbreviation Definitions IDD - Insulin Dep Diabetes OSBR - Open Spina Bifida Risk For further inquiries contact [employer] [facility] at [phone]. This test was developed and its performance characteristics determined by [employer]. It has not been cleared or approved by the Food and Drug Administration. Performed at: [facility] [address] [facility], [facility], [place] [id number] Turn Supervisor: Basilia Taylor [facility], Phone: [phone] GEST. AGE ON COLLECTION DATE 20.0 . weeks [facility] GESTAT. AGE BASED ON LMP . [facility] Comment on above: Recalculations are n ot recommended when gestational dating by LMP and ultrasound are within 10 days. INSULIN DEP DIABETES No . [facility] INTERPRETATION Comment . [facility] Comment on above: Interpretation: Scre en Negative [...] Customer Services to discuss available options. [employer] recommends amniocentesis be offered to women age 35 and older. [age] [facility] MULTIPLE GESTATION No . [facility] [place] [address] [place] [id number] . [facility] RACE . [facility] RESULTS Report . [facility] TEST RESULTS: Negative . [facility] WEIGHT 206 . lbs [facility] N N LMP [id number] N 1 Y 206 N N N N N White/ [facility] US OB 14+ WEEKS ANATOMY SCAN on [...] II, MD, PHD at 05-Mar-2025 10:03:06 PM [facility] Normal Not Available Comment on above: Order Comment: US OB ANATOMY SINGLE W US OB CERVICAL LENGTH Estimated Date of Delivery: 07/20/25 Gestational Age as of 02/02/2025: 16w0d Urinalysis macro (dipstick) panel (U)on 03-02-2025 Bilirubin, UA Negative Negative - 4(70) +++ mg/dL [facility] Blood, UA Negative Negative - 50 Hernan/mcL [facility] Clarity, UA Clear [facility] Color, UA Yellow [facility] Glucose, UA Negative Negative - 1999(110) ++++ mg/dL [facility] Interpretation and review of laboratory results Abnormal [facility] Ketones, UA Negative Negative - 160(16) ++++ mg/dL [facility] Leukocytes, UA Negative Negative - 500+++ Deana/mcL [facility] Nitrite, UA Negative Negative - Positive [facility] pH, UA 7 5 - 9 [facility] Protein, UA Negative Negative - 1999(20) ++++ mg/dL [facility] Spec Grav, UA 1.015 1 - 1.03 [facility] Urobilinogen, UA 1.0 0.2 - 12 mg/dL [facility] Urinalysis macro (dipstick) panel (U)on 02-02-2025 Bilirubin, UA Negative Negative - 4(70) +++ mg/dL [facility] Blood, UA Negative Negative - 50 Hernan/mcL [facility] Clarity, UA Clear [facility] Color, UA Claudia [facility] Glucose, UA Negative Negative - 1999(110) ++++ mg/dL [facility] Interpretation and review of laboratory results Abnormal [facility] Ketones, UA Negative Negative - 160(16) ++++ mg/dL [facility] Leukocytes, UA Negative Negative - 500+++ Deana/mcL [facility] Nitrite, UA Negative Negative - Positive [facility] pH, UA 6.5 5 - 9 [facility] Protein, UA Positive Negative - 1999(20) ++++ mg/dL [facility] Comment on above: 30 Spec Grav, UA 1.02 1 - 1.03 [facility] Urobilinogen, UA 0.2 0.2 - 12 mg/dL [facility] IGP,APTIMA HPV,AGE GDLNon AGE GDLN ACOG TESTING Note . [facility] Comment on above: TESTS RESULT FLAG UN ITS REF RANGE LAB Clinician Provided Cytology Information Source.............Cervix;Endocervix No. of containers..01 ThinPrep Vial Age Algo ACOG Amparo... FLAG LEGEND: L-Low Normal,H-High Normal,LL-Alert Low,HH-Alert High <-Panic Low,>-Panic High,A-Abnormal,AA-Critical Abnormal Performed at: 01 =G [facility] [place] [address] [place] [address] Analia Valencia MD, IGP, RFX APTIMA HPV ASCU Note . [facility] Comment on above: TESTS RESULT FLAG UN ITS REF RANGE LAB DIAGNOSIS: 02 NEGATIVE FOR INTRAEPITHELIAL LESION OR MALIGNANCY. Specimen adequacy: 02 Satisfactory for evaluation. No endocervical component is identified. Performed by: 02 Danni Gonzalez, Activated Sludge Operator ([facility]) . 02 Note: Note 02 The Pap [...] High,A-Abnormal,AA-Critical Abnormal Performed at: 02 WB [facility] [place] [address] [place], [place] [address] Analia Valencia MD, Performed at: =[address] [id number] Turn Supervisor: Analia Valencia MD, Phone: [phone] Performed at: [address] [id number] Turn Supervisor: Analia Valencia MD, Phone: [phone] BRUSH-SPATULA CERVIX ENDOCERVIX [facility] RECURRENT VAGINITIS (HTRX)on 01-06-2025 ATOPOBIUM VAGINAE 0 [facility] ATOPOBIUM VAGINAE Not detected [facility] BVAB 2,3 (BACTERIAL VAGINOSIS ASSOCIATED BACTERIA 2, 3); MOBILUNCUS SPP 0 [facility] BVAB 2,3 (BACTERIAL VAGINOSIS ASSOCIATED BACTERIA 2, 3); MOBILUNCUS SPP Not detected [facility] MARTHA ALBICANS, PARAPSILOSIS, TROPICALIS 0 [facility] MARTHA ALBICANS, PARAPSILOSIS, TROPICALIS Not detected [facility] MARTHA GLABRATA 0 [facility] MARTHA GLABRATA Not detected [facility] MARTHA KRUSEI 0 [facility] MARTHA KRUSEI Not detected [facility] CHLAMYDIA TRACHOMATIS 0 [facility] CHLAMYDIA TRACHOMATIS Not detected N [facility] GARDNERELLA VAGINALIS 0 [facility] GARDNERELLA VAGINALIS Not detected N [facility] MEGASPHAERA (TYPES 1, 2) 0 [facility] MEGASPHAERA (TYPES 1, 2) Not detected [facility] MYCOPLASMA GENITALIUM 0 [facility] MYCOPLASMA GENITALIUM Not detected N [facility] NEISSERIA GONORRHOEAE 0 [facility] NEISSERIA GONORRHOEAE Not detected N [facility] TRICHOMONAS VAGINALIS 0 [facility] TRICHOMONAS VAGINALIS Not detected N [facility] Urinalysis macro (dipstick) panel (U)on 01-05-2025 Bilirubin, UA Negative Negative - 4(70) +++ mg/dL [facility] Blood, UA Negative Negative - 50 Hernan/mcL [facility] Clarity, UA Clear [facility] Color, UA Yellow [facility] Glucose, UA Negative Negative - 2000(110) ++++ mg/dL [facility] Interpretation and review of laboratory results Abnormal [facility] Ketones, UA Negative Negative - 160(16) ++++ mg/dL [facility] Leukocytes, UA Negative Negative - 500+++ Deana/mcL [facility] Nitrite, UA Negative Negative - Positive [facility] pH, UA 6.5 5 - 9 [facility] Protein, UA Negative Negative - 2000(20) ++++ mg/dL [facility] Spec Grav, UA 1.025 1 - 1.03 [facility] Urobilinogen, UA 1.0 0.2 - 12 mg/dL [facility] ALL TYPE AND SCREENon 2024 ABO and Rh group Nom (Bld) Blood group O Rh(D) positive [facility] ( test) Ql (U)o n 12-22-2024 Interpretation and review of laboratory results Normal [facility] Preg Test, Ur Positive Negative [facility] MLR HEMOGLOBIN A1Con 025 Glucose [Mass/Vol] 100 mg/dL [facility] HbA1c (Bld) [Mass fraction] 5.1 % 4.5 - 6.2 % [facility] Comment on above: ADA RECOMMENDED LIMI T 4.0 - 6.0 ADA THERAPEUTIC TARGET < 7.0 ACTION SUGGESTED > 7.0 [facility] US OB TRANSVAGINALon 025 US OB TRANSVAGINAL [...] II, MD, PHD at 24-Dec-2024 06:51:11 PM [facility] Normal Not Available Comment on above: Order Comment: US OB TRANSVAGINAL No LMP recorded. Urinalysis macro (dipstick) panel (U)on 12-22-2024 Bilirubin, UA Negative Negative - 4(70) +++ mg/dL [facility] Blood, UA Negative Negative - 50 Hernan/mcL [facility] Clarity, UA Clear [facility] Color, UA Yellow [facility] Glucose, UA Negative Negative - 2000(110) ++++ mg/dL [facility] Interpretation and review of laboratory results Normal [facility] Ketones, UA Negative Negative - 160(16) ++++ mg/dL [facility] Leukocytes, UA Negative Negative - 500+++ Deana/mcL [facility] Nitrite, UA Negative Negative - Positive [facility] pH, UA 6 5 - 9 [facility] Protein, UA Negative Negative - 2000(20) ++++ mg/dL [facility] Spec Grav, UA 1.025 1 - 1.03 [facility] Urobilinogen, UA 1.0 0.2 - 12 mg/dL [facility] Disch Summon 01-23-2024 Disch Summ 28 YO P1 WHO UNDERWENT FAVD WITH UNREMARKABLE COURSE AUTHENTICATED BY FRANKIE ARTIS, ON 01/23/2024 05:56:[address] [facility] HEMOGLOBIN AND HEMATOCRITon 01-23-2024 Hematocrit (Bld) [Volume fraction] 27.7 % Low 36.0-46.0 [facility] Comment on above: Performed By: #### 4 [id number] #### [facility] [address] [place] [address] Donavan Shafer M.D. [id number] Hemoglobin (Bld) [Mass/Vol] 9.0 g/dL Low 12.0-16.0 [facility] Comment on above: Performed By: #### 4 8052 #### [facility] [address] [place], [place] [address] Donavan Shafer M.D. [id number] Hemoglobin and Hematocrit [facility] (Bld)on 01-23-2024 Hematocrit (Bld) [Volume fraction] 27.7 % Low 36.0 - 46.0 % [facility] Hemoglobin (Bld) [Mass/Vol] 9.0 g/dL Low 12.0 - 16.0 g/dL [facility] Interpretation and review of laboratory results Abnormal [facility] CBCon 01-22-2024 AUTO NRBC 0.0 % Normal [facility] Comment on above: Performed By: #### 4 6336 #### [facility] [address] [place], [place] [address] Donavan Shafer M.D. [id number] AUTO NRBC ABS COUNT 0.00 K/mcL Normal 0.00-0.00 [facility] Comment on above: Performed By: #### 4 6320 #### [facility] [address] [place], [place] [address] Donavan Shafer M.D. [id number] Erythrocyte distribution width (RBC) [Ratio] 13.5 % Normal 11.6-14.8 [facility] Comment on above: Performed By: #### 4 6337 #### [facility] [address] [place], [place] [address] Donavan Shafer M.D. [id number] Hematocrit (Bld) [Volume fraction] 29.7 % Low 36.0-46.0 [facility] Comment on above: Performed By: #### 4 6339 #### [facility] [address] [place], [place] [address] Donavan Shafer M.D. [id number] Hemoglobin (Bld) [Mass/Vol] 10.0 g/dL Low 12.0-16.0 [facility] Comment on above: Performed By: #### 4 6391 #### [facility] [address] [place], [place] [address] Donavan Shafer M.D. [id number] MCH (RBC) [Entitic mass] 31.4 pg Normal 26.0-34.0 [facility] Comment on above: Performed By: #### 4 6391 #### [facility] [address] [place] [address] Donavan Shafer M.D. [id number] MCV (RBC) [Entitic vol] 93.4 fL Normal 80.0-100.0 [facility] Comment on above: Performed By: #### 4 6391 #### [facility] [address] [place] [address] Donavan Shafer M.D. [id number] MEAN CORPUSCULAR HEMOGLOBIN CONC 33.7 g/dL Normal 31.0-37.0 [facility] Comment on above: Performed By: #### 4 6391 #### [facility] [address] [place], [place] [address] Donavan Shafer M.D. [id number] Platelet mean volume (Bld) [Entitic vol] 12.6 fL High 9.4-12.4 [facility] Comment on above: Performed By: #### 4 6392 #### [facility] [address] [place], [place] [address] Donavan Shafer M.D. [id number] Platelets (Bld) [#/Vol] 101 10*3/uL Low 150-400 [facility] Comment on above: Performed By: #### 4 6365 #### [facility] [address] [place], [place] [address] Donavan Shafer M.D. [id number] RBC (Bld) [#/Vol] 3.18 10*6/uL Low 4.00-5.20 [facility] Comment on above: Performed By: #### 4 6391 #### [facility] [address] [place] [address] Donavan Shafer M.D. [id number] WBC (Bld) [#/Vol] 20.43 10*3/uL High 4.50-11.00 [facility] Comment on above: Performed By: #### 4 6391 #### [facility] [address] [place] [address] Donavan Shafer M.D. [id number] CBC panel Auto (Bld)on 01-21 Erythrocyte distribution width (RBC) [Entitic vol] 13.5 % 11.6 - 14.8 % [facility] Hematocrit (Bld) [Volume fraction] 29.7 % Low 36.0 - 46.0 % [facility] Hemoglobin (Bld) [Mass/Vol] 10.0 g/dL Low 12.0 - 16.0 g/dL [facility] Interpretation and review of laboratory results Abnormal [facility] MCH (RBC) [Entitic mass] 31.4 pg 26.0 - 34.0 pg [facility] MCHC (RBC) [Mass/Vol] 33.7 g/dL 31.0 - 37.0 g/dL [facility] MCV (RBC) [Entitic vol] 93.4 fL 80.0 - 100.0 fL [facility] Nucleated RBC (Bld) [#/Vol] 0.00 10*3/uL [facility] Nucleated RBC/100 WBC (Bld) [Ratio] 0.0 % [facility] Platelet mean volume (Bld) [Entitic vol] 12.6 fL High 9.4 - 12.4 fL [facility] Platelets (Bld) [#/Vol] 101 10*3/uL Low [facility] RBC (Bld) [#/Vol] 3.18 10*6/uL Low [facility]alth WBC (Bld) [#/Vol] 20.43 10*3/uL High [facility] APTTon 01-21-2024 aPTT Coag (Bld) [Time] 28 s [facility] aPTT Coag (Bld) [Time] 28 s Normal 23-34 [facility] Comment on above: Order Comment: Thera peutic range for APTT's is 68 - 104 seconds Performed By: #### 4 [id number] #### [facility] [address] [place] [address] Donavan Shafer M.D. [id number] CBC Auto Differentialon 01-05 Basophils (Bld) [#/Vol] 0.03 10*3/uL [facility] Basophils/100 WBC (Bld) 0.3 % [facility] Eosinophils (Bld) [#/Vol] 0.04 10*3/uL [facility] Eosinophils/100 WBC (Bld) 0.4 % [facility] Erythrocyte distribution width (RBC) [Entitic vol] 13.9 % 11.6 - 14.8 % [facility] Hematocrit (Bld) [Volume fraction] 33.6 % Low 36.0 - 46.0 % [facility] Hemoglobin (Bld) [Mass/Vol] 11.4 g/dL Low 12.0 - 16.0 g/dL [facility] Immature granulocytes (Bld) [#/Vol] 0.06 10*3/uL [facility] Immature granulocytes/100 WBC (Bld) 0.60 % [facility] Comment on above: The IG parameter is the percentage of metamyelocytes, myelocytes and promyelocytes. An immature granulocyte count (IG) of 1% or more suggests the possibility of infection, an IG count of 3% is very likely related to an infection. Interpretation and review of laboratory results Abnormal [facility] Lymphocytes (Bld) [#/Vol] 1.00 10*3/uL [facility] Lymphocytes/100 WBC (Bld) 9.3 % [facility] MCH (RBC) [Entitic mass] 31.6 pg 26.0 - 34.0 pg [facility] MCHC (RBC) [Mass/Vol] 33.9 g/dL 31.0 - 37.0 g/dL [facility] MCV (RBC) [Entitic vol] 93.1 fL 80.0 - 100.0 fL [facility] Monocytes (Bld) [#/Vol] 1.11 10*3/uL High [facility] Monocytes/100 WBC (Bld) 10.3 % [facility] Neutrophils (Bld) [#/Vol] 8.52 10*3/uL High [facility] Neutrophils/100 WBC (Bld) 79.1 % [facility] Nucleated RBC (Bld) [#/Vol] 0.00 10*3/uL [facility] Nucleated RBC/100 WBC (Bld) [Ratio] 0.0 % [facility] Platelet mean volume (Bld) [Entitic vol] 12.3 fL 9.4 - 12.4 fL [facility] Platelets (Bld) [#/Vol] 128 10*3/uL Low [facility] RBC (Bld) [#/Vol] 3.61 10*6/uL Low [facility] WBC (Bld) [#/Vol] 10.76 10*3/uL [facility] CBC WITH AUTO DIFFERENTIALon 01-21-2024 AUTO NRBC 0.0 % Normal [facility] Comment on above: Performed By: #### 4 [id number] #### [facility] [address] [place] [address] Donavan Shafer M.D. [id number] AUTO NRBC ABS COUNT 0.00 K/mcL Normal 0.00-0.00 [facility] Comment on above: Performed By: #### 4 6316 #### [facility] [address] [place] [address] Donavan Shafer M.D. [id number] BASOPHILS ABSOLUTE COUNT 0.03 K/mcL Normal 0.00-0.30 [facility] Comment on above: Performed By: #### 4 6356 #### [facility] [address] [place] [address] Donavan Shafer M.D. [id number] Basophils/100 WBC (Bld) 0.3 % Normal [facility] Comment on above: Performed By: #### 4 7724 #### [facility] [address] [place] [address] Donavan Shafer M.D. [id number] Eosinophils (Bld) [#/Vol] 0.04 10*3/uL Normal 0.00-0.50 [facility] Comment on above: Performed By: #### 4 [id number] #### [facility] [address] [place] [address] Donavan Shafer M.D. [id number] Eosinophils/100 WBC (Bld) 0.4 % Normal [facility] [facility] Comment on above: Performed By: #### 4 [id number] #### [facility] [address] [place] [address] Donavan Shafer M.D. [id number] Erythrocyte distribution width (RBC) [Ratio] 13.9 % Normal 11.6-14.8 [facility] Comment on above: Performed By: #### 4 6392 #### [facility] [address] [place] [address] Donavan Shafer M.D. [id number] Hematocrit (Bld) [Volume fraction] 33.6 % Low 36.0-46.0 [facility] Comment on above: Performed By: #### 4 6391 #### [facility] [address] [place] [address] Donavan Shafer M.D. [id number] Hemoglobin (Bld) [Mass/Vol] 11.4 g/dL Low 12.0-16.0 [facility] Comment on above: Performed By: #### 4 6304 #### [facility] [address] [place], [place] [address] Donavan Shafer M.D. [id number] IG ABSOLUTE 0.06 K/mcL Normal 0.00-0.30 [facility] Comment on above: Performed By: #### 4 6328 #### [facility] [address] [place] [address] Donavan Shafer M.D. [id number] IG PERCENT 0.60 % Normal [facility] Comment on above: Result Comment: The IG parameter is the percentage of metamyelocytes, myelocytes and promyelocytes. An immature granulocyte count (IG) of 1% or more suggests the possibility of infection, an IG count of 3% is very likely related to an infection. Performed By: #### 4 [id number] #### [facility] [address] [place], [place] [address] Donavan Shafer M.D. [id number] Lymphocytes (Bld) [#/Vol] 1.00 10*3/uL Normal 0.90-4.00 [facility] Comment on above: Performed By: #### 4 6358 #### [facility] [address] [place] [address] Donavan Shafer M.D. [id number] Lymphocytes/100 WBC (Bld) 9.3 % Normal [facility] Comment on above: Performed By: #### 4 [id number] #### [facility] [address] [place] [address] Donavan Shafer M.D. [id number] MCH (RBC) [Entitic mass] 31.6 pg Normal 26.0-34.0 [facility] Comment on above: Performed By: #### 4 6325 #### [facility] [address] [place], [place] [address] Donavan Shafer M.D. [id number] MCV (RBC) [Entitic vol] 93.1 fL Normal 80.0-100.0 [facility] Comment on above: Performed By: #### 4 5824 #### [facility] [address] [place], [place] [address] Donavan Shafer M.D. [id number] MEAN CORPUSCULAR HEMOGLOBIN CONC 33.9 g/dL Normal 31.0-37.0 [facility] Comment on above: Performed By: #### 4 9985 #### [facility] [address] [place], [place] [address] Donavan Shafer M.D. [id number] Monocytes (Bld) [#/Vol] 1.11 10*3/uL High 0.30-0.90 [facility] Comment on above: Performed By: #### 4 6391 #### [facility] [address] [place], [place] [address] Donavan Shafer M.D. [id number] Monocytes/100 WBC (Bld) 10.3 % Normal [facility] Comment on above: Performed By: #### 4 6391 #### [facility] [address] [place] [address] Donavan Shafer M.D. [id number] NEUTROPHILS ABSOLUTE COUNT 8.52 K/mcL High 1.70-7.00 [facility] Comment on above: Performed By: #### 4 [id number] #### [facility] [address] [place], [place] [address] Donavan Shafer M.D. [id number] Neutrophils/100 WBC (Bld) 79.1 % Normal [facility] Comment on above: Performed By: #### 4 [id number] #### [facility] [address] [place], [place] [address] Donavan Shafer M.D. [id number] Platelet mean volume (Bld) [Entitic vol] 12.3 fL Normal 9.4-12.4 [facility] Comment on above: Performed By: #### 4 [id number] #### [facility] [address] [place], [place] [address] Donavan Shafer M.D. [id number] Platelets (Bld) [#/Vol] 128 10*3/uL Low 150-400 [facility] Comment on above: Performed By: #### 4 6320 #### [facility] [address] [place], [place] [address] Donavan Shafer M.D. [id number] RBC (Bld) [#/Vol] 3.61 10*6/uL Low 4.00-5.20 [facility] Comment on above: Performed By: #### 4 6327 #### [facility] [address] [place] [address] Donavan Shafer M.D. [id number] WBC (Bld) [#/Vol] 10.76 10*3/uL Normal 4.50-11.00 [facility] Comment on above: Performed By: #### 4 6391 #### [facility] [address] [place], [place] [address] Donavan Shafer M.D. [id number] FIBRINOGENon 01-21-2024 FIBRINOGEN LEVEL 541 mg/dL High 224-483 [facility] Comment on above: Performed By: #### 4 8052 #### [facility] [address] [place] [address] Donavan Shafer M.D. [id number] FibrinogenOrdered By: Adelaida Gaspar on 01-21-2024 Fibrinogen Coag (PPP) [Mass/Vol] 541 mg/dL High 224 - 483 mg/dL [facility] Fibrinogen Coag (PPP) [Mass/ Vol]Ordered By: Adelaida Gaspar on 01-21-2024 Interpretation and review of laboratory results Abnormal [facility] INR Coag (PPP) [Relative [place] e]on 01-21-2024 Interpretation and review of laboratory results Normal [facility] PT Coag (PPP) [Time] 13.[address] [facility] During the induction phase of oral anticoagulation, the INR may not reflect the anticoagulation status of the patient. Therapeutic ranges for INR's are: Most clinical situations: INR 2.0-3.0 Mechanical Prosthetic Valve: INR 2.5-3.5 Critical: INR >5.0 [facility] PT/INRon 01-21-2024 INR Coag (PPP) [Relative time] 1.0 {INR} 0.8 - 1.1 [facility] INR Coag (PPP) [Relative time] 1.0 {INR} Normal 0.8-1.1 [facility] Comment on above: Order Comment: Stella bajwa the induction phase of oral anticoagulation, the INR may not reflect the anticoagulation status of the patient. Therapeutic ranges for INR's are:Most clinical situations: INR 2.0-3.0Mechanical Prosthetic Valve: INR 2.5-3.5Critical: INR >5.0 Performed By: #### 4 8052 #### [facility] [address] [place] [address] Donavan Shafer M.D. [id number] PT Coag (PPP) [Time] 13.0 s Normal 11.8-14.3 [facility] Comment on above: Order Comment: Stella bajwa the induction phase of oral anticoagulation, the INR may not reflect the anticoagulation status of the patient. Therapeutic ranges for INR's are:Most clinical situations: INR 2.0-3.0Mechanical Prosthetic Valve: INR 2.5-3.5Critical: INR >5.0 Performed By: #### 4 8052 #### [facility] [address] [place] [address] Donavan Shafer M.D. [id number] aPTT Coag (Bld) [Time]on Interpretation and review of laboratory results Normal [facility] Therapeutic range for APTT's is 68 - 104 seconds [facility] ABORH VERIFICATIONon 024 ABO and Rh group Nom (Bld) Blood group O Rh(D) positive [facility] Comment on above: Performed By: #### 4 6391 #### [facility] [address] [place] [address] Donavan Shafer M.D. [id number] ABO and Rh group Nom (Bld) ABO/Rh Verification [facility] Comment on above: Result Comment: Melita ent's ABO/Rh is verified. Performed By: #### 4 6391 #### [facility] [address] [place] [address] Donavan Shafer M.D. [id number] ABORH Verificationon 024 ABO and Rh group Nom (Bld) Blood group O Rh(D) positive [facility] ABO and Rh group Nom (Bld) ABO/Rh Verification [facility] Comment on above: Patient's ABO/Rh is verified. [facility] APTTon 01-20-2024 aPTT Coag (Bld) [Time] 27 s [facility] aPTT Coag (Bld) [Time] 27 s Normal 23-34 [facility] Comment on above: Order Comment: Stella bajwa the induction phase of oral anticoagulation, the INR may not reflect the anticoagulation status of the patient. Therapeutic ranges for INR's are: Most clinical situations: INR 2.0-3.0 Mechanical Prosthetic Valve: INR 2.5-3.5 Critical: INR >5.0 Performed By: #### 4 [id number] #### [facility] [address] [place] [address] Donavan Shafer M.D. [id number] Blood type and Indirect anti body screen panel (Bld)on 01-20-2024 ABO and Rh group Nom (Bld) Blood group O Rh(D) positive [facility] Blood group antibody screen Ql Negative [facility] Specimen Expires 01/23/2024 23:59 EST [facility] CBCon 01-20-2024 AUTO NRBC 0.0 % Normal [facility] Comment on above: Performed By: #### 4 [id number] #### [facility] [address] [place] [address] Donavan Shafer M.D. [id number] AUTO NRBC ABS COUNT 0.00 K/mcL Normal 0.00-0.00 [facility] Comment on above: Performed By: #### 4 [id number] #### [facility] [address] [place], [place] [address] Donavan Shafer M.D. [id number] Erythrocyte distribution width (RBC) [Ratio] 14.0 % Normal 11.6-14.8 [facility] Comment on above: Performed By: #### 4 [id number] #### [facility] [address] [place], [place] [address] Donavan Shafer M.D. [id number] Hematocrit (Bld) [Volume fraction] 36.3 % Normal 36.0-46.0 [facility] Comment on above: Performed By: #### 4 [id number] #### [facility] [address] [place], [place] [address] Donavan Shafer M.D. [id number] Hemoglobin (Bld) [Mass/Vol] 12.2 g/dL Normal 12.0-16.0 [facility] Comment on above: Performed By: #### 4 [id number] #### [facility] [address] [place] [address] Donavan Shafer M.D. [id number] MCH (RBC) [Entitic mass] 31.3 pg Normal 26.0-34.0 [facility] Comment on above: Performed By: #### 4 [id number] #### [facility] [address] [place] [address] Donavan Shafer M.D. [id number] MCV (RBC) [Entitic vol] 93.1 fL Normal 80.0-100.0 [facility] Comment on above: Performed By: #### 4 [id number] #### [facility] [address] [place], [place] [address] Donavan Shafer M.D. [id number] MEAN CORPUSCULAR HEMOGLOBIN CONC 33.6 g/dL Normal 31.0-37.0 [facility] Comment on above: Performed By: #### 4 [id number] #### [facility] [address] [place], [place] [address] Donavan Shafer M.D. [id number] Platelet mean volume (Bld) [Entitic vol] 12.1 fL Normal 9.4-12.4 [facility] Comment on above: Performed By: #### 4 [id number] #### [facility] [address] [place], [place] [address] Donavan Shafer M.D. [id number] Platelets (Bld) [#/Vol] 129 10*3/uL Low 150-400 [facility] Comment on above: Performed By: #### 4 [id number] #### [facility] [address] [place] [address] Donavan Shafer M.D. [id number] RBC (Bld) [#/Vol] 3.90 10*6/uL Low 4.00-5.20 [facility] Comment on above: Performed By: #### 4 [id number] #### [facility] [address] [place] [address] Donavan Shafer M.D. [id number] WBC (Bld) [#/Vol] 10.05 10*3/uL Normal 4.50-11.00 [facility] Comment on above: Performed By: #### 4 [id number] #### [facility] [address] [place] [address] Donavan Shafer M.D. [id number] CBC panel Auto (Bld)on 01-19 Erythrocyte distribution width (RBC) [Entitic vol] 14.0 % 11.6 - 14.8 % [facility] Hematocrit (Bld) [Volume fraction] 36.3 % 36.0 - 46.0 % [facility] Hemoglobin (Bld) [Mass/Vol] 12.2 g/dL 12.0 - 16.0 g/dL [facility] Interpretation and review of laboratory results Abnormal [facility] MCH (RBC) [Entitic mass] 31.3 pg 26.0 - 34.0 pg [facility] MCHC (RBC) [Mass/Vol] 33.6 g/dL 31.0 - 37.0 g/dL [facility] MCV (RBC) [Entitic vol] 93.1 fL 80.0 - 100.0 fL [facility] Nucleated RBC (Bld) [#/Vol] 0.00 10*3/uL [facility] Nucleated RBC/100 WBC (Bld) [Ratio] 0.0 % [facility] Platelet mean volume (Bld) [Entitic vol] 12.1 fL 9.4 - 12.4 fL [facility] Platelets (Bld) [#/Vol] 129 10*3/uL Low [facility] RBC (Bld) [#/Vol] 3.90 10*6/uL Low [facility] WBC (Bld) [#/Vol] 10.05 10*3/uL [facility] COMPREHENSIVE METABOLIC PANE Gian 01-20-2024 Albumin [Mass/Vol] 3.5 g/dL Normal 3.2-5.2 [facility] Comment on above: Order Comment: [facility] has implemented the eGFR calculation approach that does not have a coefficient for race that conforms to the NKF-ASN Task Force Recommendations. Performed By: #### 4 [id number] #### [facility] [address] [place], [place] [address] Donavan Shafer M.D. [id number] ALP [Catalytic activity/Vol] 163 U/L High 40-140 [facility] Comment on above: Order Comment: [facility] has implemented the eGFR calculation approach that does not have a coefficient for race that conforms to the NKF-ASN Task Force Recommendations. Performed By: #### 4 [id number] #### [facility] [address] [place] [address] Donavan Shafer M.D. [id number] ALT [Catalytic activity/Vol] 14 U/L Normal 0-35 U/L [facility] Comment on above: Order Comment: [facility] has implemented the eGFR calculation approach that does not have a coefficient for race that conforms to the NKF-ASN Task Force Recommendations. Performed By: #### 4 [id number] #### [facility] [address] [place], [place] [address] Donavan Shafer M.D. [id number] Anion gap [Moles/Vol] 16 mmol/L Normal 10-20 [facility] Comment on above: Order Comment: [facility] has implemented the eGFR calculation approach that does not have a coefficient for race that conforms to the NKF-ASN Task Force Recommendations. Performed By: #### 4 [id number] #### [facility] [address] [place], [place] [address] Donavan Shafer M.D. [id number] AST [Catalytic activity/Vol] 18 U/L Normal 0-35 U/L [facility] Comment on above: Order Comment: [facility] has implemented the eGFR calculation approach that does not have a coefficient for race that conforms to the NKF-ASN Task Force Recommendations. Performed By: #### 4 [id number] #### [facility] [address] [place] [address] Donavan Shafer M.D. [id number] Bilirubin [Mass/Vol] 0.3 mg/dL Normal 0.0-1.3 [facility] Comment on above: Order Comment: [facility] has implemented the eGFR calculation approach that does not have a coefficient for race that conforms to the NKF-ASN Task Force Recommendations. Performed By: #### 4 6126 #### [facility] [address] [place] [address] Donavan Shafre M.D. [id number] Calcium [Mass/Vol] 9.2 mg/dL Normal 8.4-10.2 [facility] Comment on above: Order Comment: [facility] has implemented the eGFR calculation approach that does not have a coefficient for race that conforms to the NKF-ASN Task Force Recommendations. Performed By: #### 4 [id number] #### [facility] [address] [place] [address] Donavan Shafer M.D. [id number] Chloride [Moles/Vol] 107 mmol/L Normal 98-108 [facility] Comment on above: Order Comment: [facility] has implemented the eGFR calculation approach that does not have a coefficient for race that conforms to the NKF-ASN Task Force Recommendations. Performed By: #### 4 [id number] #### [facility] [address] [place], [place] [address] Donavan Shafer M.D. [id number] Creatinine [Mass/Vol] 0.54 mg/dL Normal 0.40-1.10 [facility] Comment on above: Order Comment: [facility] has implemented the eGFR calculation approach that does not have a coefficient for race that conforms to the NKF-ASN Task Force Recommendations. Performed By: #### 4 [id number] #### [facility] [address] [place] [address] Donavan Shafer M.D. [id number] EGFR 130 mL/min/1.73 m2 Normal >=60 [facility] Comment on above: Order Comment: [facility] has implemented the eGFR calculation approach that does not have a coefficient for race that conforms to the NKF-ASN Task Force Recommendations. Result Comment: Subha mated GFR was calculated using the 2020 CKD-EPI creatinine equation. Performed By: #### 4 [id number] #### [facility] [address] [place], [place] [address] Donavan Shafer M.D. [id number] Glucose [Mass/Vol] 84 mg/dL Normal 65-99 [facility] Comment on above: Order Comment: [facility] has implemented the eGFR calculation approach that does not have a coefficient for race that conforms to the NKF-ASN Task Force Recommendations. Performed By: #### 4 [id number] #### [facility] [address] [place] [address] Donavan Shafer M.D. [id number] HCO3 (Bld) [Moles/Vol] 19 mmol/L Low 21-32 [facility] Comment on above: Order Comment: [facility] has implemented the eGFR calculation approach that does not have a coefficient for race that conforms to the NKF-ASN Task Force Recommendations. Performed By: #### 4 [id number] #### [facility] [address] [place], [place] [address] Donavan Shafer M.D. [id number] Potassium [Moles/Vol] 4.1 mmol/L Normal 3.5-5.1 [facility] Comment on above: Order Comment: [facility] has implemented the eGFR calculation approach that does not have a coefficient for race that conforms to the NKF-ASN Task Force Recommendations. Performed By: #### 4 [id number] #### [facility] [address] [place] [address] Donavan Shafer M.D. [id number] Protein [Mass/Vol] 6.6 g/dL Normal 6.0-8.0 [facility] Comment on above: Order Comment: [facility] has implemented the eGFR calculation approach that does not have a coefficient for race that conforms to the NKF-ASN Task Force Recommendations. Performed By: #### 4 [id number] #### [facility] [address] [place] [address] Donavan Shafer M.D. [id number] Sodium [Moles/Vol] 138 mmol/L Normal 135-145 [facility] Comment on above: Order Comment: [facility] has implemented the eGFR calculation approach that does not have a coefficient for race that conforms to the NKF-ASN Task Force Recommendations. Performed By: #### 4 [id number] #### [facility] [address] [place] [address] Donavan Shafer M.D. [id number] Urea nitrogen [Mass/Vol] 8 mg/dL Normal 8-25 [facility] Comment on above: Order Comment: [facility] has implemented the eGFR calculation approach that does not have a coefficient for race that conforms to the NKF-ASN Task Force Recommendations. Performed By: #### 4 [id number] #### [facility] [address] [place] [address] Donavan Shafer M.D. [id number] Urea nitrogen/Creatinine [Mass ratio] 14.8 mg/mg Normal 10.0-20.0 [facility] Comment on above: Order Comment: [facility] has implemented the eGFR calculation approach that does not have a coefficient for race that conforms to the NKF-ASN Task Force Recommendations. Performed By: #### 4 [id number] #### [facility] [address] [place] [address] Donavan Shafer M.D. [id number] Comprehensive metabolic [facility] panelon 01-20-2024 Albumin [Mass/Vol] 3.5 g/dL 3.2 - 5.2 g/dL [facility] ALP [Catalytic activity/Vol] 163 U/L High 40 - 140 U/L [facility] ALT [Catalytic activity/Vol] 14 U/L 0-35 U/L [facility] Anion gap [Moles/Vol] 16 mmol/L 10 - 20 mmol/L [facility] AST [Catalytic activity/Vol] 18 U/L 0-35 U/L [facility] Bilirubin [Mass/Vol] 0.3 mg/dL 0.0 - 1.3 mg/dL [facility] Calcium [Mass/Vol] 9.2 mg/dL 8.4 - 10. 2 mg/dL [facility] Chloride [Moles/Vol] 107 mmol/L 98 - 108 mmol/L [facility] Creatinine [Mass/Vol] 0.54 mg/dL 0.40 - 1.10 mg/dL [facility] GFR/1.73 sq M.predicted CKD-EPI (S/P/Bld) [Vol rate/Area] 130 - PINF [facility] Comment on above: Estimated GFR was ca lculated using the 2020 CKD-EPI creatinine equation. Glucose [Mass/Vol] 84 mg/dL 65 - 99 mg/dL [facility] HCO3 [Moles/Vol] 19 mmol/L Low 21 - 32 mmol/L [facility] Interpretation and review of laboratory results Abnormal [facility] Potassium [Moles/Vol] 4.1 mmol/L 3.5 - 5.1 mmol/L [facility] Protein [Mass/Vol] 6.6 g/dL 6.0 - 8.0 g/dL [facility] Sodium [Moles/Vol] 138 mmol/L 135 - 145 mmol/L [facility] Urea nitrogen [Mass/Vol] 8 mg/dL 8 - 25 mg/dL [facility] Urea nitrogen/Creatinine [Mass ratio] 14.8 mg/mg 10.0 - 20.0 [facility] has implemented the eGFR calculation approach that does not have a coefficient for race that conforms to the NKF-ASN Task Force Recommendations. [facility] FIBRINOGENon 01-20-2024 FIBRINOGEN LEVEL 573 mg/dL High 224-483 [facility] Comment on above: Performed By: #### [id number] #### [facility] [address] [place] [address] Donavan Shafer M.D. [id number] FibrinogenOrdered By: Ami Reagan on 01-20-2024 Fibrinogen Coag (PPP) [Mass/Vol] 573 mg/dL High 224 - 483 mg/dL [facility] Fibrinogen Coag (PPP) [Mass/ Vol]Ordered By: Uziel Reagan on 01-20-2024 Interpretation and review of laboratory results Abnormal [facility] HEPATITIS C ANTIBODYon 01-19 HEPATITIS C ANTIBODY Negative Normal Negative [facility] Comment on above: Order Comment: Test performed using Dorie KERRI immunoassay system Performed By: #### [id number] #### [facility] [address] [place], [place] [address] Donavan Shafer M.D. [id number] Hepatitis C Antibodyon 01-19 HCV Ab Ql (S) Negative Negative [facility] Interpretation and review of laboratory results Normal [facility] Test performed using Dorie KERRI immunoassay system [facility] INR Coag (PPP) [Relative [place] e]on 01-20-2024 PT Coag (PPP) [Time] 13.[address] [facility] During the induction phase of oral anticoagulation, the INR may not reflect the anticoagulation status of the patient. Therapeutic ranges for INR's are: Most clinical situations: INR 2.0-3.0 Mechanical Prosthetic Valve: INR 2.5-3.5 Critical: INR >5.0 [facility] LDHon 01-20-2024 LDH Lactate to pyruvate reaction [Catalytic activity/Vol] 167 U/L 100 - 250 U/L [facility] LDH [Catalytic activity/Vol] 167 U/L Normal 100-250 [facility] Comment on above: Performed By: #### 4 6065 #### [facility] [address] [place] [address] Donavan Shafer M.D. [id number] LDH Lactate to pyruvate reac tion [Catalytic activity/Vol]on 01-20-2024 Interpretation and review of laboratory results Normal [facility] No Panel Informationon 01-19 [facility] Interpretation and review of laboratory results Normal [facility] No Panel InformationOrdered By: Uziel Millshanna on 01-20-2024 [facility] POC URINALYSIS DIPSTICK,AUTO - RALSon 01-20-2024 POC BILIRUBIN, URINE Negative Normal Negative [facility] Comment on above: Performed By: #### P [id number] #### [facility] [address] [place] [address] [id number] [facility] POC BLOOD, URINE Moderate Abnormal Negative [facility] Comment on above: Performed By: #### P [id number] #### [facility] [address] [place] [address] [id number] [facility] POC GLUCOSE, URINE Negative Normal Negative [facility] Comment on above: Performed By: #### P [id number] #### [facility] [address] [place] [address] [id number] [facility] POC KETONES, URINE Negative Normal Negative [facility] Comment on above: Performed By: #### P [id number] #### [facility] [address] [place] [address] [id number] [facility] POC LEUKOCYTE ESTERASE, URINE Negative Normal Negative [facility] Comment on above: Performed By: #### P [id number] #### [facility] [address] [place] [address] [id number] [facility] POC NITRITE, URINE Negative Normal Negative [facility] Comment on above: Performed By: #### P [id number] #### [facility] [address] [place] [address] [id number] [facility] POC PH, URINE 7.0 Normal 5.0-7.0 [facility] Comment on above: Performed By: #### P [id number] #### [facility] [address] [place] [address] [id number] [facility] POC SPECIFIC GRAVITY 1.010 Normal 1.005-1.025 [facility] Comment on above: Performed By: #### P [id number] #### [facility] [address] [place] [address] [id number] [facility] POC UROBILINOGEN 0.2 mg/dL Normal < 2.0 [facility] Comment on above: Performed By: #### P [id number] #### [facility] [address] [place] [address] [id number] [facility] Protein (U) [Mass/Vol] 100 mg/dL Abnormal Negative [facility] Comment on above: Performed By: #### P [id number] #### [facility] [address] [place] [address] [id number] [facility] POC Urinalysis Dipstick, Aut oon 01-20-2024 Bilirubin Ql (U) Negative Negative [facility] Glucose Ql (U) Negative Negative mg/dL [facility] Hemoglobin Ql (U) Moderate Abnormal Negative [facility] Interpretation and review of laboratory results Abnormal [facility] Ketones Ql (U) Negative Negative mg/dL [facility] Leukocyte esterase Test strip Ql (U) Negative Negative [facility] Nitrite Ql (U) Negative Negative [facility] pH (U) 7.0 [pH] 5.0 - 7.0 [facility] Protein Ql (U) 100 mg/dL Abnormal Negative [facility] Specific gravity (U) [Rel density] 1.010 1.005 - 1.025 [facility] Urobilinogen Qn (U) 0.2 mg/dL NINF - 2 .0 mg/dL [facility] PROTEIN / CREATININE RATIO, URINEon 01-20-2024 CREATININE,UR 53.7 mg/dL Normal [facility] Comment on above: Order Comment: Ede mazariegos stat Performed By: #### 4 7136 #### [facility] [address] [place] [address] Donavan Shafer M.D. [id number] Protein (U) [Mass/Vol] 26.4 mg/dL Normal [facility] Comment on above: Order Comment: Pleas e send stat Performed By: #### 4 7136 #### [facility] [address] [place] [address] Donavan Shafer M.D. [id number] PROTEIN CREATININE RATIO 0.5 ratio High 0.0-0.2 [facility] Comment on above: Order Comment: Pleas e send stat Performed By: #### 4 7136 #### [facility] [address] [place], [place] [address] Donavan Shafer M.D. [id number] PT/INRon 01-20-2024 INR Coag (PPP) [Relative time] 1.0 {INR} 0.8 - 1.1 [facility] INR Coag (PPP) [Relative time] 1.0 {INR} Normal 0.8-1.1 [facility] Comment on above: Order Comment: Stella bajwa the induction phase of oral anticoagulation, the INR may not reflect the anticoagulation status of the patient. Therapeutic ranges for INR's are: Most clinical situations: INR 2.0-3.0 Mechanical Prosthetic Valve: INR 2.5-3.5 Critical: INR >5.0 Performed By: #### 4 6391 #### [facility] [address] [place], [place] [address] Donavan Shafer M.D. [id number] PT Coag (PPP) [Time] 13.3 s Normal 11.8-14.3 [facility] Comment on above: Order Comment: Stella bajwa the induction phase of oral anticoagulation, the INR may not reflect the anticoagulation status of the patient. Therapeutic ranges for INR's are: Most clinical situations: INR 2.0-3.0 Mechanical Prosthetic Valve: INR 2.5-3.5 Critical: INR >5.0 Performed By: #### 4 6391 #### [facility] [address] [place] [address] Donavan Shafer M.D. [id number] Protein / Creatinine Ratio, UrineOrdered By: Misael Zuleta on 01-20-2024 Protein/Creatinine (U) [Ratio] 0.5 High [facility] Protein/Creatinine (U) [Rati o]Ordered By: Misael Zuleta on 01-20-2024 Creatinine (U) [Mass/Vol] 53.7 mg/dL [facility] Interpretation and review of laboratory results Abnormal [facility] Protein (U) [Mass/Vol] 26.4 mg/dL [facility] SYPHILIS ANTIBODYon 01-20-20 SYPHILIS TREPONEMAL ANTIBODY Negative Normal Negative [facility] Comment on above: Performed By: #### 4 8052 #### [facility] [address] [place] [address] Donavan Shafer M.D. [id number] T. pallidum IgG Ql (S)on Interpretation and review of laboratory results Normal [facility] T. pallidum Ab Ql (S) Negative Negative [facility] TYPE AND SCREENon 01-20-2024 TYPE AND SCREEN ABORH: O Positive AB SCREEN: Negative EXPIRATION DATE: 01/23/2024 23:[address] [facility] Comment on above: Performed By: #### 4 6391 #### [facility] [address] [place], [place] [address] Donavan Shafer M.D. [id number] URIC ACIDon 01-20-2024 Urate [Mass/Vol] 5.4 mg/dL Normal 2.4-7.0 [facility] Comment on above: Performed By: #### 4 6629 #### [facility] [address] [place], [place] [address] Donavan Shafer M.D. [id number] Urate [Mass/Vol]on Interpretation and review of laboratory results Normal [facility] Uric Acidon 01-20-2024 Urate [Mass/Vol] 5.4 mg/dL 2.4 - 7.0 mg/dL [facility] aPTT Coag (Bld) [Time]on Therapeutic range for APTT's is 68 - 104 seconds [facility] Comprehensive metabolic 2000 panelon 01-16-2023 Albumin [Mass/Vol] 4.7 g/dL 3.5 - 4.8 g/dL [facility] ALP [Catalytic activity/Vol] 44 U/L [facility] ALT [Catalytic activity/Vol] 13 U/L [facility] Anion gap [Moles/Vol] 11 mmol/L 6 - 18 Tri nity [facility] AST [Catalytic activity/Vol] 17 U/L [facility] Bilirubin [Mass/Vol] 0.6 mg/dL 0.3 - 1.2 mg/dL [facility] Calcium [Mass/Vol] 9.5 mg/dL 8.9 - 10. 3 mg/dL [facility] Chloride [Moles/Vol] 103 mmol/L 98 - 107 mmol/L [facility] CO2 [Moles/Vol] 25 mmol/L 22 - 32 mmol/L [facility] Creatinine [Mass/Vol] 0.71 mg/dL 0.60 - 1.30 mg/dL [facility] GFR/1.73 sq M.predicted among non-blacks MDRD (S/P/Bld) [Vol rate/Area] 121 mL/min/{1.73_m2} - [facility] Comment on above: Effective June 15, 2022, calculation based on the Chronic Kidney Disease Epidemiology Collaboration (CKD-EPI) equation refit without adjustment for race. Glucose [Mass/Vol] 78 mg/dL 70 - 99 mg/dL [facility] Potassium [Moles/Vol] 4.2 mmol/L 3.6 - 5.1 mmol/L [facility] Protein [Mass/Vol] 7.8 g/dL 6.1 - 7.9 g/dL [facility] Sodium [Moles/Vol] 139 mmol/L 136 - 145 mmol/L [facility] Urea nitrogen [Mass/Vol] 13 mg/dL 8 - 20 mg/dL [facility] Urea nitrogen/Creatinine [Mass ratio] 18.3 mg/mg 12.0 - 20.0 [facility] TSH Qn 1.27 m[IU]/L Normal 0.45-5.33 [facility] Comment on above: Performed By: #### 2 4323-8 #### [facility] [place] [facility] [address] [place] [address] Hemogram and platelets WO di fferential panel (Bld)on 01-16-2023 Basophils (Bld) [#/Vol] 0.03 10*3/uL [facility] Basophils/100 WBC (Bld) 0.5 % 0.0 - [...] ty Health WBC (Bld) [#/Vol] 6.5 10*3/uL [facility] Basophils (Bld) [#/Vol] 0.03 10*3/uL Normal 0.00-0.20 [facility] Comment on above: Performed By: #### 2 4317-0 #### [facility] [place] [facility] [address] [place] [address] Basophils/100 WBC (Bld) 0.5 % Normal 0.0-2.0 [facility] Comment on above: Performed By: #### 2 7-0 #### [facility] [place] [facility] [address] [place] [address] Eosinophils (Bld) [#/Vol] 0.13 10*3/uL Normal 0.00-0.70 [facility] Comment on above: Performed By: #### 2 7-0 #### [facility] [place] [facility] [address] [place] [address] Eosinophils/100 WBC (Bld) 2.0 % Normal 0.0-7.0 [facility] Comment on above: Performed By: #### 2 7-0 #### [facility] [address] [place] [address] Erythrocyte distribution width (RBC) [Ratio] 12.5 % Normal 11.0-14.8 [facility] Comment on above: Performed By: #### 2 7-0 #### [facility] [place] [facility] [address] [place] [address] Hematocrit (Bld) [Volume fraction] 43.2 % Normal 34.3-47.9 [facility] Comment on above: Performed By: #### 2 7-0 #### [facility] [address] [place] [address] Hemoglobin (Bld) [Mass/Vol] 14.6 g/dL Normal 12.0-16.0 [facility] Comment on above: Performed By: #### 2 7-0 #### [facility] [place] [facility] [address] [place] [address] Immature granulocytes (Bld) [#/Vol] 0.01 10*3/uL Normal 0.00-0.10 [facility] Comment on above: Performed By: #### 2 4317-0 #### [facility] [place] [facility] [address] [place] [address] Immature granulocytes/100 WBC (Bld) 0.2 % Normal 0.0-1.2 [facility] Comment on above: Performed By: #### 2 7-0 #### [facility] [address] [place] [address] Lymphocytes (Bld) [#/Vol] 1.06 10*3/uL Normal 1.00-4.80 [facility] Comment on above: Performed By: #### 2 7-0 #### [facility] ([facility] [address] [address] Lymphocytes/100 WBC (Bld) 16.4 % Low 17.9-49.6 [facility] Comment on above: Performed By: #### 2 7-0 #### [facility] ([facility]) [address] [address] MCH 31.1 pcg Normal 27.0-34.0 [facility] Comment on above: Performed By: #### 2 7-0 #### [facility] [address] [place] [address] MCHC (RBC) [Mass/Vol] 33.8 g/dL Normal 30.8-35.3 [facility] Comment on above: Performed By: #### 2 4317-0 #### [facility] [address] [place] [address] MCV (RBC) [Entitic vol] 91.9 fL Normal 80.0-97.0 [facility] Comment on above: Performed By: #### 2 4317-0 #### [facility] [address] [place] [address] Monocytes (Bld) [#/Vol] 0.65 10*3/uL Normal 0.00-0.90 [facility] Comment on above: Performed By: #### 2 4317-0 #### [facility] [place] [facility] [address] [place] [address] Monocytes/100 WBC (Bld) 10.0 % Normal 0.0-12.0 [facility] Comment on above: Performed By: #### 2 7-0 #### [facility] [place] [facility] [address] [place] [address] Neutrophils Absolute 4.60 K/mcL Normal 1.80-7.70 [facility] Comment on above: Performed By: #### 2 7-0 #### [facility] [place] [facility] [address] [place] [address] Neutrophils/100 WBC (Bld) 70.9 % Normal 38.1-75.5 [facility] Comment on above: Performed By: #### 2 7-0 #### [facility] [place] [facility] [address] [place] [address] Platelet mean volume (Bld) [Entitic vol] 10.6 fL Normal 6.2-12.1 [facility] Comment on above: Performed By: #### 2 4317-0 #### [facility] [place] [facility] [address] [place] [address] Platelets (Bld) [#/Vol] 220 10*3/uL Normal 142-424 [facility] Comment on above: Performed By: #### 2 4317-0 #### [facility] [place] [facility] [address] [place] [address] RBC (Bld) [#/Vol] 4.70 10*6/uL Normal 3.74-5.34 [facility] Comment on above: Performed By: #### 2 4317-0 #### [facility] [place] [facility] [address] [place] [address] [place] [address] WBC (Bld) [#/Vol] 6.5 10*3/uL Normal 4.6-10.2 [facility] Comment on above: Performed By: #### 2 4317-0 #### [facility] [address] [place] [address] Lipid panel with direct LDLo n 01-16-2023 Cholesterol [Mass/Vol] 157 mg/dL NINF - 200 mg/dL [facility] Cholesterol in HDL [Mass/Vol] 65 mg/dL 40 - PINF mg/dL [facility] Cholesterol in LDL [Mass/Vol] 78 mg/dL NINF - 100 mg/dL [facility] Cholesterol in VLDL [Mass/Vol] 14 mg/dL 2 - 38 mg/dL [facility] Triglyceride [Mass/Vol] 70 mg/dL [facility] mg/dL [facility] No Panel Informationon 01-16 Interpretation and review of laboratory results Normal [facility] TSH Qnon 01-16-2023 Interpretation and review of laboratory results Normal [facility] Thyroid stimulating hormoneo n 01-16-2023 TSH Qn 1.27 m[IU]/L [facility] Bacterial vaginosis and vagi nitis DNA panel Probe+sig amp (Vag fld)on 08-26-2022 C. glabrata DNA CARLI+non-probe Ql (Pos bld culture) Negative Negative [facility] Martha sp rRNA Probe Ql (Vag fld) Negative Negative [facility] Interpretation and review of laboratory results Normal [facility] SARS-CoV-2 (COVID-19) RNA CARLI+probe Ql (Unsp spec) Negative Negative [facility] T. vaginalis Ag Ql (Vag fld) Negative Negative [facility] N. gonorrhoeae DNA CARLI+probe Ql (U)on 08-26-2022 C. trachomatis rRNA Probe Ql (Unsp spec) Negative Negative [facility] Interpretation and review of laboratory results Normal [facility] N. gonorrhoeae rRNA Probe Ql (Unsp spec) Negative Negative [facility] HPV DNA Probe+sig amp Ql (Un sp spec)on 08-25-2022 HPV RNA Negative Normal Negative [facility] Comment on above: Performed By: #### 4 4547-8 #### [facility] [place] [facility] [address] [place] [address] N gonorrhoea DNA Ur Ql CARLI+p robeon 08-25-2022 N. gonorrhoeae DNA CARLI+probe Ql (U) N. gonorrhoeae, RNA Probe Status = F Negative Chlamydia, RNA Probe Status = F Negative Normal Negative [facility] Comment on above: Performed By: #### 2 1416-3 #### [facility] [address] [place] [address] N. gonorrhoeae DNA CARLI+probe Ql (U)on 08-25-2022 Bacterial vaginosis and vaginitis DNA panel Probe+sig amp (Vag fld) Bacterial vaginosis Status = F Negative Martha Species Status = F Negative Martha glabrata Status = F Negative Trichomonas vaginosis Status = F Negative Normal Negative [facility] Comment on above: Performed By: #### 2 1416-3 #### [facility] [address] [place] [address] Service Cmnt-Impon 2 Service comment (Unsp spec) [Interp] F Z01.419, Z12.4 08/17/2022 NG NG Cervix SEE NOTE Satisfactory for Evaluation Endocervical/Transf ormation Zone component present SEE NOTE NEG SEE NOTE NEGATIVE FOR INTRAEPITHELIAL LESION OR MALIGNANCY SEE NOTE No Organisms Detected Test Performed at: [facility]/[address] [place] Bree Baker MD, PhD TNP SEE NOTE Screener [facility] CT(ASCP) EXPLANATORY NOTE: The Pap is a [...] with computer assisted technology. TNP TNP Normal [facility] Comment on above: Performed By: #### 8 251-1 #### [facility] [address] [place] [address] 25-hydroxyvitamin D3 [Mass/V ol]on 07-21-2022 Interpretation and review of laboratory results Abnormal [facility] Comprehensive metabolic 2000 panelon 07-21-2022 Albumin [Mass/Vol] 4.2 g/dL 3.5 - 4.8 g/dL [facility] ALP [Catalytic activity/Vol] 46 U/L [facility] ALT [Catalytic activity/Vol] 13 U/L [facility] Anion gap [Moles/Vol] 7 mmol/L 6 - 18 [facility] AST [Catalytic activity/Vol] 15 U/L [facility] Bilirubin [Mass/Vol] 0.4 mg/dL 0.3 - 1.2 mg/dL [facility] Calcium [Mass/Vol] 9.0 mg/dL 8.9 - 10. 3 mg/dL [facility] Chloride [Moles/Vol] 104 mmol/L 98 - 107 mmol/L [facility] CO2 [Moles/Vol] 28 mmol/L 22 - 32 mmol/L [facility] Creatinine [Mass/Vol] 0.61 mg/dL 0.60 - 1.30 mg/dL [facility] GFR/1.73 sq M.predicted MDRD (S/P/Bld) [Vol rate/Area] 128 mL/min/{1.73_m2} - PINF [facility] Comment on above: Effective June 15, 2022, calculation based on the Chronic Kidney Disease Epidemiology Collaboration (CKD-EPI) equation refit without adjustment for race. Glucose [Mass/Vol] 93 mg/dL 70 - 99 mg/dL [facility] Interpretation and review of laboratory results Abnormal [facility] Potassium [Moles/Vol] 4.5 mmol/L 3.6 - 5.1 mmol/L [facility] Protein [Mass/Vol] 7.0 g/dL 6.1 - 7.9 g/dL [facility] Sodium [Moles/Vol] 139 mmol/L 136 - 145 mmol/L [facility] Urea nitrogen [Mass/Vol] 15 mg/dL 8 - 20 mg/dL [facility] Urea nitrogen/Creatinine [Mass ratio] 24.6 mg/mg High 12.0 - 20.0 [facility] Vit D, 25-Hydroxy 23.0 ng/mL Low 30.0-100.0 [facility] Comment on above: Result Comment: Defi cient <20 ng/mL Insufficient 20 to 30 ng/mL Sufficient 30-100 ng/mL Toxic >100 ng/mL Performed By: #### 2 4323-8 #### [facility] [address] [place] [address] HCV Ab IA Qlon 07-21-2022 Interpretation and review of laboratory results Normal [facility] HIV 1+2 Ab IA.rapid Ql (Unsp spec)on 07-21-2022 HIV 1+2 Ab+HIV1 p24 Ag IA Ql Non-Reactive Nonreactive [facility] Interpretation and review of laboratory results Normal [facility] This is a 4th generation test (P24 AG,HIV-1 AB, HIV-2 AB) Specimens with preliminary reactive results will be confirmed by HIV1/2 Differentiation test ([employer]). THE IDENTITY OF A PERSON ON WHOM [...] responsible for compensitory damages and equitable relief. [facility] Hepatitis C Antibody Non-Reactive Normal Nonreactive [facility] Comment on above: Order Comment: This is a 4th generation test (P24 AG,HIV-1 AB, HIV-2 AB) Specimens with preliminary reactive results will be confirmed by HIV1/2 Differentiation test ([employer]). THE IDENTITY OF A PERSON ON [...] relief. Performed By: #### 4 9580-4 #### [facility] [address] [place] [address] Hemogram and platelets WO di fferential panel [...] ty Health WBC (Bld) [#/Vol] 6.0 10*3/uL [facility] Basophils (Bld) [#/Vol] 0.04 10*3/uL Normal 0.00-0.20 [facility] Comment on above: Performed By: #### 2 4317-0 #### [facility] [place] [facility] [address] [place] [address] Basophils/100 WBC (Bld) 0.7 % Normal 0.0-2.0 [facility] Comment on above: Performed By: #### 2 7-0 #### [facility] [place] [facility] [address] [place] [address] Eosinophils (Bld) [#/Vol] 0.25 10*3/uL Normal 0.00-0.70 [facility] Comment on above: Performed By: #### 2 7-0 #### [facility] [place] [facility] [address] [place] [address] Eosinophils/100 WBC (Bld) 4.2 % Normal 0.0-7.0 [facility] Comment on above: Performed By: #### 2 7-0 #### [facility] [place] [facility] [address] [place] [address] Erythrocyte distribution width (RBC) [Ratio] 12.6 % Normal 11.0-14.8 [facility] Comment on above: Performed By: #### 2 7-0 #### [facility] [place] [facility] [address] [place] [address] Hematocrit (Bld) [Volume fraction] 40.5 % Normal 34.3-47.9 [facility] Comment on above: Performed By: #### 2 7-0 #### [facility] [place] [facility] [address] [place] [address] Hemoglobin (Bld) [Mass/Vol] 13.6 g/dL Normal 12.0-16.0 [facility] Comment on above: Performed By: #### 2 7-0 #### [facility] [address] [place] [address] Immature granulocytes (Bld) [#/Vol] 0.02 10*3/uL Normal 0.00-0.10 [facility] Comment on above: Performed By: #### 2 7-0 #### [facility] [address] [place] [address] Immature granulocytes/100 WBC (Bld) 0.3 % Normal 0.0-1.2 [facility] Comment on above: Performed By: #### 2 7-0 #### [facility] [address] [place] [address] Lymphocytes (Bld) [#/Vol] 0.98 10*3/uL Low 1.00-4.80 [facility] Comment on above: Performed By: #### 2 7-0 #### [facility] [address] [place] [address] Lymphocytes/100 WBC (Bld) 16.4 % Low 17.9-49.6 [facility] Comment on above: Performed By: #### 2 7-0 #### [facility] [address] [address] MCH 30.6 pcg Normal 27.0-34.0 [facility] Comment on above: Performed By: #### 2 7-0 #### [facility] [address] [place] [address] MCHC (RBC) [Mass/Vol] 33.6 g/dL Normal 30.8-35.3 T[facility] Comment on above: Performed By: #### 2 7-0 #### [facility] ([facility] [address] [place] [address] MCV (RBC) [Entitic vol] 91.2 fL Normal 80.0-97.0 [facility] Comment on above: Performed By: #### 2 7-0 #### [facility] [address] [place] [address] Monocytes (Bld) [#/Vol] 0.62 10*3/uL Normal 0.00-0.90 [facility] Comment on above: Performed By: #### 2 4317-0 #### [facility] [place] [facility] [address] [place] [address] Monocytes/100 WBC (Bld) 10.4 % Normal 0.0-12.0 [facility] Comment on above: Performed By: #### 2 7-0 #### [facility] [place] [facility] [address] [place] [address] Neutrophils Absolute 4.06 K/mcL Normal 1.80-7.70 [facility] Comment on above: Performed By: #### 2 7-0 #### [facility] [place] [facility] [address] [place] [address] Neutrophils/100 WBC (Bld) 68.0 % Normal 38.1-75.5 [facility] Comment on above: Performed By: #### 2 7-0 #### [facility] [address] [place] [address] Platelet mean volume (Bld) [Entitic vol] 10.3 fL Normal 6.2-12.1 [facility] Comment on above: Performed By: #### 2 7-0 #### [facility] [place] [facility] [address] [place] [address] Platelets (Bld) [#/Vol] 243 10*3/uL Normal 142-424 [facility] Comment on above: Performed By: #### 2 4317-0 #### [facility] [place] [facility] [address] [place] [address] RBC (Bld) [#/Vol] 4.44 10*6/uL Normal 3.74-5.34 [facility] Comment on above: Performed By: #### 2 7-0 #### [facility] ([facility] [address] [place] [address] WBC (Bld) [#/Vol] 6.0 10*3/uL Normal 4.6-10.2 [facility] Comment on above: Performed By: #### 2 4317-0 #### [facility] ([facility] [address] [place] [address] Hepatitis C antibody screeno n 07-21-2022 HCV Ab IA Ql Non-Reactive Nonreactive [facility] Lipid panel with direct LDLo n 07-21-2022 Cholesterol [Mass/Vol] 137 mg/dL NINF - 200 mg/dL [facility] Cholesterol in HDL [Mass/Vol] 53 mg/dL 40 - PINF mg/dL [facility] Cholesterol in LDL [Mass/Vol] 70 mg/dL [facility]dL [facility] Cholesterol in VLDL [Mass/Vol] 13.8 mg/dL 2 - 38 mg/dL [facility] Interpretation and review of laboratory results Normal [facility] Triglyceride [Mass/Vol] 69 mg/dL NINF - 200 mg/dL [facility] No Panel Informationon 07-21 [facility] TSH Qnon 07-21-2022 Interpretation and review of laboratory results Normal [facility] Thyroid stimulating hormoneo n 07-21-2022 TSH Qn 0.90 m[IU]/L [facility] Vitamin D 25 hydroxyon 07-21 25-hydroxyvitamin D3 [Mass/Vol] 23.0 ng/mL Low 30.0 - 100.0 ng/mL [facility] Comment on above: Deficient <20 ng/mL Insufficient [...] by Oseas Martines on 08/27/[address] [facility] Ends Breakage Clerk Q - BV/VAGINITIS PANEL DNA Bree Juarez 08-23-2021 TRICHOMONAS: TNP Normal [facility] Ends Breakage Clerk Comment on above: Order Comment: [facility] performed at: QPT, [facility], [address], [address] [place], [address], Dragline Mechanic: Haja Estrada MD [facility] Collection Date/Time: [id number] [facility] Results Received Date/Time: [id number] [facility] Reported Date/Time: [id number] Result Comment: TEST NOT PERFORMED Due to a laboratory error, we are unable to perform this test. Specimen exceeded stability due to incorrect storage. Performed By: #### 1 [id number] #### [facility] Default [address] [place] [address] MRI IACS WO W CONon 03-19-20 20 [...] WYATT CURRAN Date: 2020-03-19 09:57 Normal [facility] CHLAMYDIA/GONOCOCCUS CARLI (SW AB/URINE/PAPon 05-02-2019 Chlamydia trachomatis, CARLI Negative Normal Negative [facility] Comment on above: Performed By: #### C T/NGNA #### [facility] [address] [place], [place] [address] Yuri Carias Neisseria gonorrhoeae, CARLI Negative Normal Negative [facility] Comment on above: Performed By: #### C T/NGNA #### [facility] [address] [place], [place] [address] Yuri Carias VAGINITIS/VAGINOSIS DNA PROB Jose 04-30-2019 Martha species Negative Normal Negative [facility] Comment on above: Performed By: #### V AGINT #### [facility] [address] [place] [address] Yuri Carias Gardnerella vaginalis Negative Normal Negative [facility] Comment on above: Performed By: #### V AGINT #### [facility] [address] [place] [address] Yuri Carias Trichomonas vaginalis Negative Normal Negative [facility] Comment on above: Performed By: #### V AGINT #### [facility] [address] [place] [address] Yuri Carias Vital Signs Date Time Vital Sign Value Performing Clinician Faci lity 04-10-2025 11:33-0400 Body mass index (BMI) [Ratio] 37.73 kg/m2 Quincy Roberts RESEARCH PROFESSIONAL Work Phone: [facility] 04-10-2025 11:33-0400 Body weight 96.62 kg Quincy Roberts RESEARCH PROFESSIONAL Work Phone: [facility] 04-10-2025 11:33-0400 Diastolic blood pressure 72 mm[Hg] Quincy Roberts RESEARCH PROFESSIONAL Work Phone: [facility] 04-10-2025 11:33-0400 Systolic blood pressure 118 mm[Hg] Quincy Roberts RESEARCH PROFESSIONAL Work Phone: [facility] 03-02-2025 09:57-0400 Body mass index (BMI) [Ratio] 36.87 kg/m2 Ernestine CASTORENA Work Phone: [facility] 03-02-2025 09:57-0400 Body weight 94.4 kg Ernestine CASTORENA Work Phone: [facility] 03-02-2025 09:57-0400 Diastolic blood pressure 68 mm[Hg] Ernestine CASTORENA Work Phone: [facility] 03-02-2025 09:57-0400 Systolic blood pressure 110 mm[Hg] Ernestine López PA Work Phone: [facility] 02-02-2025 10:44-0400 Body mass index (BMI) [Ratio] 36.63 kg/m2 Ernestine López PA Work Phone: [facility] 02-02-2025 10:44-0400 Body weight 93.8 kg Ernestine López PA Work Phone: [facility] 02-02-2025 10:44-0400 Diastolic blood pressure 64 mm[Hg] Ernestine López PA Work Phone: [facility] 02-02-2025 10:44-0400 Systolic blood pressure 110 mm[Hg] Ernestine López PA Work Phone: [facility] 01-05-2025 11:28-0400 Body mass index (BMI) [Ratio] 36.51 kg/m2 Josiah Amadeo DO Work Phone: [facility] 01-05-2025 11:28-0400 Body weight 93.5 kg Josiah Amadeo DO Work Phone: [facility] 01-05-2025 11:28-0400 Diastolic blood pressure 78 mm[Hg] Josiah Amadeo DO Work Phone: [facility] 01-05-2025 11:28-0400 Systolic blood pressure 120 mm[Hg] Josiah Amadeo DO Work Phone: [facility] 12-22-2024 14:47-0400 Body mass index (BMI) [Ratio] 37.45 kg/m2 [facility] 12-22-2024 14:47-0400 Body weight 95.89 kg [facility] Nurse [facility] 01-24-2024 13:30-0400 Respiratory rate 16 /min Frankie Artis MD Work Phone: [facility] 01-24-2024 08:29-0400 Body temperature 98.1 [degF] Frankie Artis MD Work Phone: [facility] 01-24-2024 08:29-0400 Diastolic blood pressure 84 mm[Hg] Frankie Artis MD Work Phone: [facility] 01-24-2024 08:29-0400 Heart rate 92 /min Frankie Artis MD Work Phone: [facility] 01-24-2024 08:29-0400 SaO2% (BldA) [Mass fraction] 99 % Frankie Artis MD Work Phone: [facility] 01-24-2024 08:29-0400 Systolic blood pressure 128 mm[Hg] Frankie Artis MD Work Phone: [facility] 01-20-2024 21:00-0400 Body height 160 cm Frankie Artis MD Work Phone: [facility] 01-20-2024 21:00-0400 Body mass index (BMI) [Ratio] 40.57 kg/m2 Frankie Artis MD Work Phone: [facility] 01-20-2024 21:00-0400 Body weight 103.87 kg Frankie Artis MD Work Phone: [facility] 01-16-2023 11:34-0400 Body height 160.6 cm Ej Burk RESEARCH PROFESSIONAL Work Phone: [facility] 01-16-2023 11:34-0400 Body mass index (BMI) [Ratio] 30.42 kg/m2 Ej Burk RESEARCH PROFESSIONAL Work Phone: [facility] 01-16-2023 11:34-0400 Body temperature 98.2 [degF] Ej Burk RESEARCH PROFESSIONAL Work Phone: [facility] 01-16-2023 11:34-0400 Body weight 78.47 kg Ej Burk RESEARCH PROFESSIONAL Work Phone: [facility] 01-16-2023 11:34-0400 Diastolic blood pressure 66 mm[Hg] Ej Burk RESEARCH PROFESSIONAL Work Phone: [facility] 01-16-2023 11:34-0400 Heart rate 70 /min Ej Neuhart RESEARCH PROFESSIONAL Work Phone: [employer] 01-16-2023 11:34-0400 Respiratory rate 14 /min Ej Neuhart RESEARCH PROFESSIONAL Work Phone: [facility] 01-16-2023 11:34-0400 Systolic blood pressure 116 mm[Hg] Ej Neuhart RESEARCH PROFESSIONAL Work Phone: [facility] 08-25-2022 11:40-0500 Diastolic blood pressure 67 mm[Hg] Ej Neuhart RESEARCH PROFESSIONAL Work Phone: [facility] 08-25-2022 11:40-0500 Heart rate 74 /min Ej Neuhart RESEARCH PROFESSIONAL Work Phone: [facility] 08-25-2022 11:40-0500 Systolic blood pressure 107 mm[Hg] Ej Neuhart RESEARCH PROFESSIONAL Work Phone: [facility] 08-25-2022 11:29-0500 Body height 160.6 cm Ej Neuhart RESEARCH PROFESSIONAL Work Phone: [facility] 08-25-2022 11:29-0500 Body mass index (BMI) [Ratio] 31.3 kg/m2 Ej Neuhart RESEARCH PROFESSIONAL Work Phone: [facility] 08-25-2022 11:29-0500 Body temperature 98.71 [degF] Ej Neuhart RESEARCH PROFESSIONAL Work Phone: [facility] 08-25-2022 11:29-0500 Body weight 80.74 kg Ej Neuhart RESEARCH PROFESSIONAL Work Phone: [facility] 08-25-2022 11:29-0500 Respiratory rate 14 /min Ej Neuhart RESEARCH PROFESSIONAL Work Phone: [facility] 07-21-2022 10:44-0500 Body height 160.6 cm Ej Neuhart RESEARCH PROFESSIONAL Work Phone: [employer] 07-21-2022 10:44-0500 Body mass index (BMI) [Ratio] 31.16 kg/m2 Ej العراقيt RESEARCH PROFESSIONAL Work Phone: [employer] 07-21-2022 10:44-0500 Body temperature 98.01 [degF] Ej العراقيt RESEARCH PROFESSIONAL Work Phone: [employer] [employer] 07-21-2022 10:44-0500 Body weight 80.38 kg Ej العراقيt RESEARCH PROFESSIONAL Work Phone: [employer] 07-21-2022 10:44-0500 Diastolic blood pressure 69 mm[Hg] Ej Briesinceret RESEARCH PROFESSIONAL Work Phone: [employer] [facility] 07-21-2022 10:44-0500 Heart rate 70 /min Ej Briehart RESEARCH PROFESSIONAL Work Phone: [employer] [facility] 07-21-2022 10:44-0500 Respiratory rate 16 /min Ej العراقيt RESEARCH PROFESSIONAL Work Phone: [employer] 07-21-2022 10:44-0500 Systolic blood pressure 133 mm[Hg] Ej العراقيt RESEARCH PROFESSIONAL Work Phone: [facility] Encounters Encounter Date Encounter Type Care Provider Facility Start: 04-26-2025 End: 04-26-2025 Bamboo flowsheet Josiah Amadeo DO Work Phone: [facility] Start: 04-26-2025 End: 04-26-2025 Bamboo flowsheet Josiah Amadeo DO Work Phone: [facility] Start: 04-26-2025 End: 04-26-2025 ambulatory JOSIAH AMADEO Not Available Start: 04-21-2025 End: 04-21-2025 Clinisync Result Encounter Quincy Roberts RESEARCH PROFESSIONAL Work Phone: [facility] Unsolicited Start: 04-21-2025 End: 04-21-2025 Clinisync Result Encounter Quincy Roberts RESEARCH PROFESSIONAL Work Phone: [facility] Unsolicited Start: 04-10-2025 End: 04-10-2025 Office outpatient visit 15 minutes Quincy Roberts NP Work Phone: [facility] Comment on above: Second trimester pre gnancy ([facility]); 25 weeks gestation of ([facility]); History of induced hypertension; H/O pre-eclampsia in prior , currently ([facility]); Diabetes mellitus screening Start: 04-10-2025 End: 04-10-2025 ambulatory QUINCY ROBERTS Not Available Start: 03-02-2025 End: 03-04-2025 Clinisync Result Encounter Ernestine CASTORENA Work Phone: [facility] Unsolicited Start: 03-02-2025 End: 03-04-2025 Clinisync Result Encounter Ernestine CASTORENA Work Phone: [facility] Unsolicited Start: 03-02-2025 End: 03-02-2025 flow sheet Ernestine CASTORENA Work Phone: [facility] Comment on above: Second trimester pre gnancy ([facility]); 20 weeks gestation of ([facility]) Start: 03-02-2025 End: 03-02-2025 ambulatory ERNESTINE LÓPEZ Not Available Start: 02-02-2025 End: 02-02-2025 Bamboo flowsheet Ernestine CASTORENA Work Phone: [facility] Start: 02-02-2025 End: 02-02-2025 Bamboo flowsheet Ernestine CASTORENA Work Phone: [facility] Start: 02-02-2025 End: 02-02-2025 flow sheet Ernestine CASTORENA Work Phone: [facility] Comment on above: 16 weeks gestation o f ; Second trimester ; Screening, , for anatomic survey Start: 02-02-2025 End: 02-02-2025 ambulatory ERNESTINE LÓPEZ Not Available Start: 01-05-2025 End: 01-09-2025 Clinisync Result Encounter Josiah Amadeo DO Work Phone: [facility] Unsolicited Start: 01-05-2025 End: 01-06-2025 External Result Encounter Josiah Amadeo DO Work Phone: [facility] Unsolicited Start: 01-05-2025 End: 01-09-2025 External Result Encounter Josiah Amadeo DO Work Phone: [facility]solicited Start: 01-05-2025 End: 01-05-2025 Patient encounter procedure Josiah Amadeo DO Work Phone: [facility] Start: 01-05-2025 End: 01-05-2025 Periodic preventive med est patient 18-39 yrs Josiah Amadeo DO Work Phone: [facility] Comment on above: First trimester [...] inpatient Elisa Kasey Hebert MD Work Phone: [facility] Start: 08-27-2023 End: 08-27-2023 ambulatory PAMELA QUILES [facility] Start: 01-16-2023 End: 01-16-2023 ambulatory EJ BURK [facility] Start: 01-16-2023 End: 01-16-2023 Patient encounter procedure Ej Burk RESEARCH PROFESSIONAL Work Phone: [facility] Start: 01-16-2023 End: 01-16-2023 Patient encounter status Ej Burk RESEARCH PROFESSIONAL Work Phone: [facility] Start: 01-16-2023 End: 01-16-2023 Periodic preventive med est patient 18-39 yrs Ej Burk RESEARCH PROFESSIONAL Work Phone: [facility] Comment on above: Adult general medica l examination (Primary Dx); Bipolar 1 disorder ([facility]); Seasonal allergies Start: 11-20-2022 Refill Ej giraldo RESEARCH PROFESSIONAL Work Phone: [facility] Comment on above: Allergic rhinitis, u nspecified seasonality, unspecified trigger Start: 11-20-2022 Refill Ej giraldo RESEARCH PROFESSIONAL Work Phone: [facility] Start: 08-25-2022 End: 08-25-2022 ambulatory EJ BURK [facility] Start: 08-25-2022 End: 08-25-2022 Office outpatient visit 15 minutes Ej Burk RESEARCH PROFESSIONAL Work Phone: [facility] Comment on above: Encounter for gyneco logical examination without abnormal finding (Primary Dx); Screening for STD (sexually transmitted disease); Screening for cervical cancer Start: 08-25-2022 End: 08-25-2022 Patient encounter procedure Ej Burk RESEARCH PROFESSIONAL Work Phone: [facility] Start: 08-25-2022 End: 08-25-2022 Patient encounter status Ej Burk RESEARCH PROFESSIONAL Work Phone: [facility] Start: 07-21-2022 End: 07-21-2022 ambulatory EJ BURK [facility] Start: 07-21-2022 Encounter for genera l adult medical examination without abnormal findings EJ BURK [facility] Start: 07-21-2022 End: 07-21-2022 Office outpatient new 45 minutes Ej Burk RESEARCH PROFESSIONAL Work Phone: [facility] Comment on above: Allergic rhinitis, u nspecified seasonality, unspecified trigger (Primary Dx); Pain in both upper extremities; Adult general medical examination; Need for influenza vaccination Start: 07-21-2022 End: 07-21-2022 Patient encounter procedure Ej Burk RESEARCH PROFESSIONAL Work Phone: [facility] Start: 07-21-2022 End: 07-21-2022 Patient encounter status Ej Burk RESEARCH PROFESSIONAL Work Phone: [facility] Start: 03-19-2020 End: 03-20-2020 Patient encounter procedure HERIBERTO HJA Facility: Start: 04-28-2019 End: 04-28-2019 Patient encounter procedure ROSALEE LR Facility:[facility]1 Procedures Date Procedure Procedure Detail Performing Clinician Start: 04-21-2025 GLUCOSE 1 HOUR Quincy Roberts RESEARCH PROFESSIONAL Work Phone: Start: 04-10-2025 Urnls dip stick/tabl et rgnt non-auto w/o micrscp Quincy Roberts RESEARCH PROFESSIONAL Work Phone: Start: 03-02-2025 AFP, SERUM, OPEN [...] Phone: Start: 01-05-2025 IGP,APTIMA HPV,AGE GDLN Josiah Lillyo DO Work Phone: Start: 12-28-2024 Antibody screen Josiah pierreio DO Work Phone: Start: 12-28-2024 ALL TYPE AND SCREEN Cor ey Amadeo DO Work Phone: Start: 12-22-2024 MLR HEMOGLOBIN A1C Core y Amadeo DO Work Phone: Start: 12-22-2024 End: 12-22-2024 Urnls dip stick/tablet rgnt non-auto w/o micrscp Josiah Lillyo DO Work Phone: Start: 01-23-2024 Blood count [...] Auto Different ial panel - Blood Ej العراقيt RESEARCH PROFESSIONAL Work Phone: Start: 01-16-2023 Comprehensive metabo lic panel Ej العراقيt RESEARCH PROFESSIONAL Work Phone: Start: 01-16-2023 Lipid panel Ej guerrero RESEARCH PROFESSIONAL Work Phone: Start: 08-25-2022 Iadna chlamydia trac homatis amplified probe tq Ejchrissie Burk RESEARCH PROFESSIONAL Work Phone: Start: 08-25-2022 VAGINITIS PATHOGENS BY PCR Ej Rhiannon RESEARCH PROFESSIONAL Work Phone: Start: 07-21-2022 CBC W Auto Different ial panel - Blood Ej Bairdsinceret RESEARCH PROFESSIONAL Work Phone: Start: 07-21-2022 Comprehensive metabo lic panel Ej العراقيt RESEARCH PROFESSIONAL Work Phone: Start: 07-21-2022 Hepatitis c antibody Va jonas Bairdross RESEARCH PROFESSIONAL Work Phone: Start: 07-21-2022 Hiv combination assay V min Bairdross RESEARCH PROFESSIONAL Work Phone: Start: 07-21-2022 Adult depression scr eening assessment Ej Burk RESEARCH PROFESSIONAL Work Phone: Plan of Treatment Date Care Activity Detail Author Start: 01-17-2028 Lipid panel Cholesterol Sc reening (Lipid Panel) [facility] Start: 07-21-2027 Lipid panel Cholesterol Sc reening (Lipid Panel) [facility] Start: 08-25-2025 Screening for malign ant neoplasm of cervix Cervical Cancer Screening: Pap Smear [facility] Start: 05-08-2025 Influenza vaccination N [facility] Start: 04-26-2025 End: 04-26-2025 Patient encounter procedure 04/26/2025 11:10 AM EDT Routine [facility] [address] [place] [phone] Josiah Childs, DO [address] [place] [address] [facility] Start: 04-10-2025 End: 04-10-2026 CBC panel - Blood by Automated count CBC Lab Routine Diabetes mellitus screening Expected: 04/10/2025 (Approximate), Expires: 04/10/2026 [facility] Work Phone: Comment on above: Expected: 04/10/2025 (Approximate), Expires: 04/10/2026 Start: 04-10-2025 End: 04-10-2026 Measurement of glucose 1 hour after glucose challenge for glucose tolerance test Glucose tolerance, 1 hour Lab Routine Diabetes mellitus screening Expected: 04/10/2025 (Approximate), Expires: 04/10/2026 [facility] Comment on above: Expected: 04/10/2025 (Approximate), Expires: 04/10/2026 Start: 03-30-2025 End: 03-30-2025 Patient encounter procedure 03/30/2025 9:40 AM EDT Routine [facility] [address] [place] [phone] Josiah Childs, DO [address] [place] [address] [facility] Start: 03-02-2025 End: 03-02-2025 Patient encounter procedure 03/02/2025 10:20 AM EDT Routine [facility] [address] [facility] [place] [phone] Ernestine López PA [address] [place], [place] [id number] [facility] Start: 03-02-2025 End: 03-02-2025 Professional / ancillary services management 03/02/2025 9:00 AM EDT Ancillary Procedure [facility] [address] [place] [address] [facility] Start: 02-02-2025 End: 03-05-2025 Alpha fetoprotein, maternal Alpha fetoprotein, maternal Lab Routine 16 weeks gestation of Second trimester Expected: 02/02/2025 (Approximate), Expires: 03/05/2025 [facility] Comment on above: Expected: 02/02/2025 (Approximate), Expires: 03/05/2025 Start: 02-02-2025 End: 05-05-2025 US for US OB 14+ weeks anatomy scan Imaging Routine Screening, , for anatomic survey Expected: 02/02/2025, Expires: 05/05/2025 [facility] Work Phone: Comment on above: Expected: 02/02/2025 , Expires: 05/05/2025 Start: 02-02-2025 End: 02-02-2025 Patient encounter procedure [facility] Comment on above: Arrived Start: 01-05-2025 End: 01-05-2025 Patient encounter procedure 01/05/2025 11:20 AM EDT Routine [facility] [address] [facility] [place] [phone] Josiah Childs DO [address] [place] [address] [facility] Start: 12-22-2024 End: 12-22-2025 [...] first trimester Expected: 12/22/2024 (Approximate), Expires: 12/22/2025 [facility] Comment on above: Expected: 12/22/2024 (Approximate), Expires: 12/22/2025 Start: 07-21-2023 Adolescent depressio n screening assessment Depression Screening [facility] Start: 07-21-2023 Social Influencers o f Health Screening Social Influencers of Health Screening [facility] Start: 07-10-2023 End: 07-10-2023 Patient encounter procedure 07/10/2023 Office Visit Family Medicine Ej Burk, JAZMIN [address] [place] [address] [facility] Start: 01-19-2023 End: 01-19-2023 Patient encounter procedure 01/19/2023 Office Visit Family Ej Brown, JAZMIN [address] [place] [phone] [facility] Start: 08-25-2022 End: 08-25-2022 Patient encounter procedure 08/25/2022 Office Visit Family Ej Brown, JAZMIN [address] [place] [phone] [facility] Start: 07-14-2022 Screening for Chlamy miroslava trachomatis Gonorrhea/Chlamydia Screening [facility] Start: 10-07-2021 COVID-19 Vaccine (4 - Booster for Pfizer series) COVID-19 Vaccine (4 - Booster for Pfizer series) [facility] Start: 08-29-2018 DTaP,Tdap,and Td Vaccines (7 - Td or Tdap) DTaP,Tdap,and Td Vaccines (7 - Td or Tdap) [facility] Start: 2018 Screening for malign ant neoplasm of cervix Cervical Cancer Screening: Pap Smear [facility] Bacteria identified in Urine by Culture Urine culture Microbiology Routine Missed menses Ordered: 12/22/2024 [facility] Comment on above: Ordered: 12/22/2024 CBC W Auto Different ial panel - Blood CBC and differential Lab Routine Missed menses , unspecified gestational age Ordered: 12/22/2024 [facility] Comment on above: Ordered: 12/22/2024 CHLAMYDIA TRACHOMATI S (GENITO/STI) CHLAMYDIA TRACHOMATIS (GENITO/STI) Lab Routine STD exposure Ordered: 01/05/2025 [facility] Comment on above: Ordered: 01/05/2025 Cytology Cervical or vaginal smear or scraping study Pap Smear Pathology and Cytology Routine Well woman exam with routine gynecological exam Ordered: 01/05/2025 [facility] Work Phone: Comment on above: Ordered: 01/05/2025 Cytology report of Cervical or vaginal smear or scraping Cyto stain.thin prep Pap smear Pathology and Cytology Routine Encounter for gynecological examination without abnormal finding Screening for cervical cancer 08/25/2022 11:59 AM [facility] Hemoglobin A1c/Hemoglobin.total in Blood Hemoglobin A1c Lab Routine Missed menses , unspecified gestational age Ordered: 12/22/2024 [facility] Comment on above: Ordered: 12/22/2024 Hepatitis B virus surface Ag [Presence] in Serum or Plasma by Immunoassay Hepatitis B surface antigen Lab Routine Missed menses , unspecified gestational age Ordered: 12/22/2024 [facility] Comment on above: Ordered: 12/22/2024 Hepatitis C virus Ab [Presence] in Serum or Plasma by Immunoassay Hepatitis C antibody Lab Routine Missed menses , unspecified gestational age Ordered: 12/22/2024 [facility] Comment on above: Ordered: 12/22/2024 HIV-1/HIV-2 antigen/antibody combination immunoassay HIV-1 and HIV-2 antibodies Lab Routine Missed menses , unspecified gestational age Ordered: 12/22/2024 [facility] Comment on above: Ordered: 12/22/2024 End: 08-26-2023 Human papilloma virus DNA [Presence] in Unspecified specimen by Probe with signal amplification HPV with reflex genotype Lab Routine Encounter for gynecological examination without abnormal finding Screening for STD (sexually transmitted disease) Screening for cervical cancer 1 Occurrences starting 08/26/2022 until 08/26/2023 [facility] Work Phone: Comment on above: 1 Occurrences starti ng 08/26/2022 until 08/26/2023 Human papilloma viru s DNA [Presence] in Unspecified specimen by Probe with signal amplification HPV with reflex genotype Lab Routine Encounter for gynecological examination without abnormal finding Screening for STD (sexually transmitted disease) Screening for cervical cancer 08/25/2022 11:58 AM EST [facility] Neisseria gonorrhoea e DNA [Presence] in Unspecified specimen by CARLI with probe detection Neisseria gonorrhea DNA probe, direct Lab Routine STD exposure Ordered: 01/05/2025 [facility] Comment on above: Ordered: 01/05/2025 Reagin Ab [Presence] in Serum by RPR RPR Lab Routine Missed menses , unspecified gestational age Ordered: 12/22/2024 [facility] Comment on above: Ordered: 12/22/2024 Rubella antibody, IgG Rubella an tibody, IgG Lab Routine Missed menses , unspecified gestational age Ordered: 12/22/2024 [facility] Comment on above: Ordered: 12/22/2024 SURESWAB(R) ADVANCED VAGINITIS PLUS, TMA SURESWAB(R) ADVANCED VAGINITIS PLUS, TMA Pathology and Cytology Routine Vaginal discharge Ordered: 01/05/2025 [facility] Comment on above: Ordered: 01/05/2025 Immunizations Immunization Date Immunization Notes Care Provider [facility] 01-22-2024 diphtheria, tetanus toxoids and acellular pertussis vaccine, unspecified formulation Frankie Artis MD Work Phone: [facility] 01-22-2024 measles, mumps and r ubella virus vaccine Frankie Artis MD Work Phone: [facility] 01-22-2024 varicella zoster imm une globulin Frankie Artis MD Work Phone: [facility] 07-21-2022 influenza, injectabl e, quadrivalent, preservative free Ej Burk RESEARCH PROFESSIONAL Work Phone: [facility] 07-21-2022 influenza virus vacc ine, unspecified formulation Noms Nurse [facility] 06-20-2020 influenza, injectabl e, quadrivalent, preservative free Ej Neuhart RESEARCH PROFESSIONAL Work Phone: [facility] 06-22-2019 influenza, injectabl e, quadrivalent, preservative free Ej Neuhart RESEARCH PROFESSIONAL Work Phone: [facility] 11-08-2015 meningococcal polysaccharide (groups A, C, Y and W-135) diphtheria toxoid conjugate vaccine (MCV4P) Ej Neuhart RESEARCH PROFESSIONAL Work Phone: [facility] 08-28-2010 human papilloma viru s vaccine, quadrivalent Ej Neuhart RESEARCH PROFESSIONAL Work Phone: [facility] 10-08-2009 hepatitis A vaccine, pediatric/adolescent dosage, 2 dose schedule Ej Neuhart RESEARCH PROFESSIONAL Work Phone: [facility] 10-08-2009 human papilloma viru s vaccine, quadrivalent Ej Neuhart RESEARCH PROFESSIONAL Work Phone: [facility] 10-08-2009 influenza virus vacc ine, live, attenuated, for intranasal use Ej Neuhart RESEARCH PROFESSIONAL Work Phone: [facility] 08-29-2008 human papilloma viru s vaccine, quadrivalent Ej Neuhart RESEARCH PROFESSIONAL Work Phone: [facility] 08-29-2008 influenza, seasonal, injectable Ej Neuhart RESEARCH PROFESSIONAL Work Phone: [facility] 08-29-2008 meningococcal polysaccharide (groups A, C, Y and W-135) diphtheria toxoid conjugate vaccine (MCV4P) Ej Neuhart RESEARCH PROFESSIONAL Work Phone: [facility] 08-29-2008 tetanus toxoid, redu macho diphtheria toxoid, and acellular pertussis vaccine, adsorbed Ej Neuhart RESEARCH PROFESSIONAL Work Phone: [facility] 05-30-2008 hepatitis A vaccine, pediatric/adolescent dosage, 2 dose schedule Ej Neuhart RESEARCH PROFESSIONAL Work Phone: [facility] 05-30-2008 hepatitis B vaccine, pediatric or pediatric/adolescent dosage Ej Neuhart RESEARCH PROFESSIONAL Work Phone: [facility] 05-30-2008 varicella virus vaccine Lisa ssa Neuhart RESEARCH PROFESSIONAL Work Phone: [facility] 02-17-2003 diphtheria, tetanus toxoids and acellular pertussis vaccine, unspecified formulation Ej Neuhart RESEARCH PROFESSIONAL Work Phone: [facility] 02-17-2003 measles, mumps and r ubella virus vaccine Ej Neuhart RESEARCH PROFESSIONAL Work Phone: [facility] 02-17-2003 poliovirus vaccine, inactivated Ej Neuhart RESEARCH PROFESSIONAL Work Phone: [facility] 02-01-1999 diphtheria, tetanus toxoids and acellular pertussis vaccine, unspecified formulation Ej Neuhart RESEARCH PROFESSIONAL Work Phone: [facility] 02-01-1999 haemophilus influenz ae type b vaccine, conjugate unspecified formulation Ej Neuhart RESEARCH PROFESSIONAL Work Phone: [facility] 02-01-1999 trivalent poliovirus vaccine, live, oral Ej Neuhart RESEARCH PROFESSIONAL Work Phone: [facility] 11-02-1998 measles, mumps and r ubella virus vaccine Ej Neuhart RESEARCH PROFESSIONAL Work Phone: [facility] 08-10-1998 measles, mumps and r ubella virus vaccine Ej Neuhart RESEARCH PROFESSIONAL Work Phone: [facility] 08-10-1998 varicella virus vaccine Lisa ssa Neuhart RESEARCH PROFESSIONAL Work Phone: [facility] 01-31-1998 diphtheria, tetanus toxoids and acellular pertussis vaccine, unspecified formulation Ej Neuhart RESEARCH PROFESSIONAL Work Phone: [facility] 01-31-1998 haemophilus influenz ae type b vaccine, conjugate unspecified formulation Ej Neuhart RESEARCH PROFESSIONAL Work Phone: [facility] 1997 diphtheria, tetanus toxoids and acellular pertussis vaccine, unspecified formulation Ej Neuhart RESEARCH PROFESSIONAL Work Phone: [facility] 1997 haemophilus influenz ae type b vaccine, conjugate unspecified formulation Ej Neuhart RESEARCH PROFESSIONAL Work Phone: [facility] 1997 poliovirus vaccine, inactivated Ej Neuhart RESEARCH PROFESSIONAL Work Phone: [facility] 1997 diphtheria, tetanus toxoids and acellular pertussis vaccine, unspecified formulation Ej Neuhart RESEARCH PROFESSIONAL Work Phone: [facility] 1997 haemophilus influenz ae type b vaccine, conjugate unspecified formulation Ej Neuhart RESEARCH PROFESSIONAL Work Phone: [facility] 1997 poliovirus vaccine, inactivated Ej Neuhart RESEARCH PROFESSIONAL Work Phone: [facility] 1997 hepatitis B vaccine, pediatric or pediatric/adolescent dosage Ej Neuhart RESEARCH PROFESSIONAL Work Phone: [facility] 1997 hepatitis B vaccine, pediatric or pediatric/adolescent dosage Ej Neuhart RESEARCH PROFESSIONAL Work Phone: [facility] Payers Date Payer Category Payer Private Health Insurance [id number] 2024 Private Health Insurance [id number] 2024 Medicaid [id number] 2024 Medicaid [id number] 2022 Unknown [id number] 2022 Unknown [id number] 2022 Blue Cross Blue Shield [place] ([place] ANTHEM [facility] [id number] 2022-Present [address] [place] [address] [id number] 2022 [facility] [id number] 2000 Medicare [id number] 1997 Unknown [id number] 93 1997 Unknown [id number] 93 1997 Unknown [id number] 143 1997 Unknown [id number] 143 1997 Unknown [id number] [id number] 143 1997 Unknown [id number] 03 1997 Unknown [id number] [id number] 00 1997 Unknown [id number] 2.16.840.1.298949.3.579.2.1 259 1997 Unknown [id number] [id number] 259 1997 Unknown [id number] [id number] 259 1997 Unknown [id number] 2.16.840.1.940153.3.579.2.1 259 1997 Unknown [id number] 2.16.840.1.432061.3.579.2.1 259 1997 Unknown [id number] 2.16.840.1.505036.3.579.2.1 259 1997 Unknown [id number] [id number] 259 1997 Unknown [id number] [id number] 259 1997 Unknown [id number] 259 1959 Unknown [id number] Social History Date Type Detail Facility Start: 07-21-2022 End: 08-27-2023 Tobacco smoking status NHIS Never smoked tobacco Soila a [facility] Start: 07-21-2022 End: 08-27-2023 Tobacco use and exposure Smokeless tobacco non-user [facility] Start: 07-21-2022 End: 01-16-2023 Alcohol intake Current drinker of alcohol (finding) [facility] Start: 07-21-2022 Alcohol Comment Occasional only [facility] Start: 1997 Sex Assigned At Not on file T [facility] Start: 07-10-2022 End: 01-16-2023 Exposure to SARS-CoV-2 (event) Not sure [facility] Start: 01-22-2024 Alcohol intake Ex-drinker (finding) [facility] Start: 08-27-2023 End: 01-21-2024 History of Social function [facility] Start: 08-27-2023 End: 01-21-2024 [facility] Utilities [facility] Has the [employer], oil, or water company threatened to shut off services in your home in past 12Mo No [facility] (I/We) worried wheth er (my/our) food would run out before (I/we) got money to buy more. Never true [facility] In the past 12 month s, has lack of transportation kept you from medical appointments or from getting medications? No [facility] Start: 11-19-2022 Gender identity Identifies as female gender (finding) [facility] Tobacco smoking status MDIS Toba account coordinator smoking consumption unknown [facility] Start: 10-27-2024 [facility] Start: 11-19-2022 Sexual orientation Bisexual (finding ) [facility] Clinical Notes 07-21-2022 to 04-10-2025 Quincy Roberts NP - 04/10/2025 11:30 AM KELL Hendrix - 03/02/2025 10:20 AM KELL Hendrix - 02/02/2025 10:30 AM David Keys LPN - 01/05/2025 11:20 AM EDTLuzmaria Instr - Other Orders Note Date & Type Note Facility 04-10-2025 History of Presen t illness Narrative Reason for Appointment: Patient ID: Deirdre Yusuf [...] Noted H/O pre-eclampsia in prior , currently ([facility]) 04/10/2025 History of induced hypertension 04/10/2025 [...] nursing note reviewed. Exam conducted with a marketing ambassador present. Vitals: Estimated body mass index is 37.73 kg/m as calculated from the following: Height as of 01/31/22: 5' 3 . Weight as of this encounter: 213 lb. BP: 118/72 Patient's last menstrual period was 10/13/2024. ASSESSMENT & PLAN ICD-10-CM 1. Second trimester ([facility]) Z34.92 POCT urinalysis dipstick manually resulted 2. 25 weeks gestation of ([facility]) Z3A.25 3. History of induced hypertension Z87.59 4. H/O pre-eclampsia in prior , currently ([facility]) O09.299 5. Diabetes mellitus screening Z13.1 [...] glucose order to obtain and schedule at [facility]. PVU instructions prior to getting labs drawn. Pt had repeat anatomy US done this morning. Orders Placed This Encounter Procedures CBC Glucose tolerance, 1 hour POCT urinalysis dipstick manually resulted Follow Up: Patient is to return to office in 3 week for routine OB appointment. Documented by Kiki Gaspar MA on behalf of: Quincy Roberts NP documented in this encounter [facility] 03-02-2025 History of Presen t illness Narrative Reason for Appointment: Patient ID: Deirdre Yusuf [...] ASSESSMENT & PLAN ICD-10-CM 1. Second trimester ([facility]) Z34.92 POCT urinalysis dipstick manually resulted 2. 20 weeks gestation of ([facility]) Z3A.20 POCT urinalysis dipstick manually resulted Return [...] of: KELL George documented in this encounter [facility] 02-02-2025 History of Presen t illness Narrative Reason for Appointment: Patient ID: Deirdre Yusuf [...] nursing note reviewed. Exam conducted with a marketing ambassador present. Vitals: Estimated body mass index is [...] of: KELL George documented in this encounter [facility] 01-05-2025 History of Presen t illness Narrative Reason for Appointment: Patient ID: Deirdre Yusuf [...] nursing note reviewed. Exam conducted with a marketing ambassador present. Vitals: Estimated body mass index is [...] or undercooked meat, and stay away from formerly [facility]. Patient has been consulted regarding any [...] Josiah Childs DO documented in this encounter [facility] 12-22-2024 History of Presen t illness Narrative Reason for Appointment: Patient ID: Deirdre Yusuf [...] or undercooked meat, and stay away from formerly [facility]. Patient has also been advised to [...] [place] LPN documented in this encounter [facility] 01-24-2024 Obstetrics Note NICU pumping consult completed: [...] States she has pump for home use. [facility] 01-24-2024 Miscellaneous Notes NICU pumping consult completed: [...] prior to discharge. - will follow up 5/19 This note was copied from a baby's chart. Arrived to offer support. Baby is with softball player at this time. Deirdre states baby has [...] NICU team in room. Low forceps. Bernal luikhart forceps placed easily with sagittal suture confirmed [...] candidate for another vaginal delivery. Female infant Steuben G1 now P1001 Debbi Perea MD COLUMNIST/COMMENTATOR [facility] [place] [facility] Vaginal Delivery Note Diagnosis: Principal Problem: Mother's Information Delivery Blood Loss 01/21/24 1232 - 01/22/24 0111 Quantitative Blood Loss - Delivery (mL) Hospital Encounter 976 mL Total 976 mL Paramjit, Baby Girl Deirdre [[id number]] Delivery Anesthesia Method: Epidural Operative Delivery Forceps [...] Vertex Position: Left _: Occiput _: Anterior Information date/time: 01/22/2431 Gender: Female Delivery type: Vaginal, Spontaneous Delivery location: OB Unit Provider Present: Indication Initial disposition: Routine NB Care ?: No Details: Delivery Providers Other personnel: Provider Role Covering Attending Resident Department Coordinator Delivery Nurse Registered Nurse Delivery Assist Gabriela Augustin, BRATTICE BUILDER Nurse Practitioner Cord Cord blood obtained?: No [...] 20 Minute: Apgars assigned by: JERSEY CASTANEDA Measurements Weight: Lacerations No data filed Other Procedures Procedures: None CTSP for AROM. Cvx 4/80/-2. Head well [...] variability, present accels, one small variable decels. [place] q1-4min. Category II Petr Knowles MD 01/21/24 [...] 01/20/24 11:54 PM documented in this encounter [facility] 01-24-2024 History of Presen t illness Narrative Spiritual Care Progress Note Completed by: Susy Reyes Person(s) Present During this Visit: Patient Not Available Time Spent in Direct Patient Care: 15 Narrative: This well point pumping supervisor provided introductory visit during pastoral care rounds. Patient unavailable for visit. Family not present at time of visit. [employer] left card with information regarding pastoral care services, 30/03 availability, and how to contact a well point pumping supervisor. Pastoral Care team will remain available to support patient and family PRN. Patients Response to Pastoral Care: Other (see comment) Planning for Future Visits: PRN 01/24/24 0900 Visit Background Visit With Patient Not Available Visit By Import Dispatcher Visit Progression Introduction Visit Requested By [employer] Initiated Visit Source [employer] Initiated Visit Type Rounding Visit Circumstances and Events Routine Visit Visit Length (minutes) 15 Patient's Response to Pastoral Care Other (see comment) Visit Planning PRN Spiritual Assessment Unable to Assess during this visit Restorationism Assessment Unable to Assess during this visit Family assessment provided? Unable to asess during this visit Susy Reyes MDiv Import Dispatcher, Pastoral Care [facility] [phone] Anesthesia Progress Note Assessment / Plan In [...] trial of labor documented in this encounter [facility] 01-24-2024 Hospital Discharg e Nazia Neri RN [...] newest strain that first appeared in late 2019 in [facility]. The COVID-19 virus has since been carried [...] at least 20 seconds. Use an alcohol-based ladle operator if soap and water are not available. [...] someone from isolation is made on a dqgo-ur-xrft basis by doctors, infection prevention and control [...] if I was swabbed to be tested? [facility] is following strict testing criteria for the [...] plasma donor at [email or web address] 4covid or call 3-853-GKJ-CROSS ( ). For more information, please visit the CDC website at https://www.cdc.gov/coronavirus /2019-nCoV/index.html. Information is constantly changing as we learn more about this disease. Check back with the website frequently for updates The following attachments cannot be sent through Care Everywhere. ([place]) Care: Vaginal : Baby in NICU ([place]): Vaginal Delivery ([place])documented in this encounter [facility] 01-23-2024 Obstetrics Note This note was copied [...] to discharge. - will follow up 01/23 [facility] 01-23-2024 Obstetrics Note This note was copied from a baby's chart. Arrived to offer support. Baby is with softball player at this time. Deirdre states baby has [...] -Reviewed section in Your Guide to and Mobile Care and the Temporary Breastpumping handout. -Primary nurse updated. -Will return this afternoon for assistance with direct . [facility] 01-23-2024 Hospital course Narrative 28 YO P1 WHO UNDERWENT FAVD WITH UNREMARKABLE COURSE documented in this encounter [facility] 01-23-2024 Note PPD 1 PT SLEEPING COMFORTABLY TALKED WITH FOB REPORTS NO ISSUE AFEB VSS ABD APPROPRIATE A/P DOING WELL PP D 1 DISCHARGE TOMORROW DISCUSSED FOLLOW UP PLANS IN LIGHT OF SIGNIFICANT BLOOD LOSS WITH DELIVERY REPEAT H/H TODAY AUTHENTICATED BY FRANKIE ARTIS, ON 01/23/2024 05:59:02 [facility] 01-22-2024 Obstetrics Note This note was copied from a baby's chart. LC stopped by patient's room to offer support, however mother was asleep at this time. [facility] 01-22-2024 Note Formatting of this n ote might be different from the original. MIV infiltrated. PIV removed. Pt refused restart [facility] 01-22-2024 Note Vaginal Delivery Pro mark Note [...] exam Sandhya Ramos CNP 01/22/24 8:15 AM AUTHENTICATED BY SANDHYA RAMOS, ON 01/22/2024 08:17:04 [facility] 01-22-2024 Note Bedside to evaluate Marci balloon. Fundus firm at U. No vaginal bleeding around the Marci device. Suprapubic pressure applied Marci removed without difficulty. Fundus firm at U -1. Vaginal bleeding minimal. AUTHENTICATED BY PETR KNOWLES, ON 01/22/2024 03:05:44 [facility] 01-22-2024 Labor and deliver y summary [...] candidate for another vaginal delivery. Female infant Ste[place] G1 now P1001 Debbi Perea MD COLUMNIST/COMMENTATOR [facility] [place] [facility] Vaginal Delivery Note Diagnosis: Principal Problem: Mother's Information Delivery Blood Loss 01/21/24 1232 - 01/22/24 0111 Quantitative Blood Loss - Delivery (mL) Hospital Encounter 976 mL Total 976 mL Paramjit, Baby Girl Deirdre [[id number]] Delivery Anesthesia Method: Epidural Operative Delivery Forceps attempted?: Yes Time help called: 01/22/202426 Additional provider arrived: 01/22/202426 NICU / NSCU arrived: 01/22/202426 Additional staff arrived: 01/22/202426 Indications: Prolonged Labor, Maternal Fatigue Forceps type: Bernal-Luikart Forceps application location: Low Number of pulls: 4 Total forceps application time: 1 minute Forceps applied by: DR. PEREA Failed?: No Shoulder Dystocia Shoulder dystocia present: Yes Time recognized: 01/22/2024 0031 Time help called: 01/22/202430 Help called by: ALL STAFF NEEDED WERE ALREADY PRESENT FOR FORCEPS ATTEMPT Additional Provider arrived: 01/22/202430 NICU/NSCU arrived: 01/22/202430 Additional staff arrived: 01/22/202430 Gentle attempt at traction, assisted by maternal expulsive forces: Yes Maneuvers performed: Head of bed lowered Head of bed lowered: 01/22/202430 Performed by: Elizabeth Camacho Maternal response: Tolerated well Maternal Response Comments: Right shoulder stuck Presentation Presentation: Vertex Position: Left _: Occiput _: Anterior Information date/time: 01/22/2431 Gender: Female Delivery type: Vaginal, Spontaneous Delivery location: OB Unit Provider Present: Indication Initial disposition: Routine NB Care ?: No Details: Delivery Providers Other personnel: Provider Role Covering Attending Resident Department Coordinator Delivery Nurse Registered Nurse Delivery Assist Gabriela [...] 20 Minute: Apgars assigned by: JERSEY CASTANEDA Mobile Measurements Weight: Lacerations No data filed Other Procedures Procedures: None [facility] Work Phone: 01-21-2024 Note Cx 6/c/-2 Well applied Fht cat 1 Continue trial of labor AUTHENTICATED BY FRANKIE BONE, ON 01/21/2024 10:04:42 [facility] 01-21-2024 Note Formatting of this n [...] variability, present accels, one small variable decels. [place] q1-4min. Category II Petr Knowles MD 01/21/24 4:03 AM [facility] 01-21-2024 History and physical note HISTORY [...] Subjective: No chief complaint on file. Deirdre Yusuf is a 28 y.o. female with Estimated [...] unchanged. James Foley MD 01/21/2024 12:39 AM [facility] 01-21-2024 Note HISTORY AND PHYSICAL UPDATE Assessment/Plan: [...] Subjective: No chief complaint on file. Deirdre Yusuf is a 28 y.o. female with Estimated [...] AUTHENTICATED BY JAMES FOLEY, ON 01/21/2024 00:40:36 [facility] 01-21-2024 History and physical note HISTORY [...] Subjective: No chief complaint on file. Deirdre Yusuf is a 28 y.o. female with Estimated [...] 01/21/2024 12:39 AM documented in this encounter [facility] 01-20-2024 Note Formatting of this n ote [...] attending. Samantha Simeon DO 01/20/24 11:54 PM [facility] Work Phone: 01-16-2023 History of Presen t illness Narrative Deirdre, thank you for selecting [facility] for your health care needs. Thank you [...] Final No Organisms Detected Test Performed at: [facility] [id number] [place] [address] [place] [address] Bree Baker MD, PhD Comment: 08/25/2022 TNP Final Vice President Of Customer Service: 08/25/2022 SEE NOTE Final Screener PALAK CT(ASCP) EXPLANATORY NOTE: The Pap is a [...] been evaluated with computer assisted technology. Review Vice President Of Customer Service: 08/25/2022 [facility] Final Pathologist: 08/25/2022 [place] Final Physical Exam: Physical Exam Vitals and nursing note reviewed. Constitutional: General: She is not in acute distress. Appearance: Normal appearance. She is not ill-appearing. HENT: Head: Normocephalic and atraumatic. Right Ear: External ear normal. Left Ear: External ear normal. Nose: Nose normal. Mouth/Throat: Lips: [place]. Comments: Mask in place during examination. Eyes: [...] allergies - CBC and differential Patient Instructions Deirdre thank you for selecting [facility] for your health care needs. Thank you [...] Ej Burk NP documented in this encounter [facility] 08-25-2022 History of Presen t illness Narrative Deirdre thank you for selecting [facility] for your health care needs. Thank you for coming in today. Ej Bruk NP Pending Labs We are currently awaiting [...] 02/17/2003 Meningococcal MCV4P 08/29/2008, 11/08/2015 OPV 02/01/1999 [facility] SARS-CoV-2 COVID-19, mRNA, LNP-S, preservative free 11/27/2020, [...] HPV with reflex genotype; Future Patient Instructions Deirdre, thank you for selecting [facility] for your health care needs. Thank you [...] Ej Burk NP documented in this encounter [facility] 07-21-2022 History of Presen t illness Narrative Deirdre, thank you for selecting [facility] for your health care needs. Thank you [...] Meseret (Fexofenadine) are the most commonly used sklo-lrw-evgfhwu allergies/antihistamine medications. You may also benefit from [...] pain bilaterally since she began working the [employer]s. Also reports a history of [...] Administered Influenza, injectable, quadrivalent, preservative free 07/21/2022 [facility] SARS-CoV-2 COVID-19, mRNA, LNP-S, preservative free 11/27/2020, [...] ear normal. Nose: Nose normal. Mouth/Throat: Lips: [place]. Comments: Mask in place during examination. Eyes: [...] Patient Instructions Deirdre, thank you for selecting [facility] for your health care needs. Thank you [...] Meseret (Fexofenadine) are the most commonly used rkul-oxm-nisfuxt allergies/antihistamine medications. You may also benefit from [...] Ej Burk NP documented in this encounter [facility] Evaluation note Diagnosis Allergic rhinitis, unspecified seasonality, unspecified trigger- Primary Pain in both upper extremities Adult general medical examination Unspecified general medical examination Need for influenza vaccination Need for prophylactic vaccination and inoculation against influenza [facility] Encounter for gynecological examination without abnormal finding- Primary Screening for STD (sexually transmitted disease) Screening for cervical cancer Screening for malignant neoplasm of the cervix [facility] Diagnosis Allergic rhinitis, unspecified seasonality, unspecified trigger [facility] Diagnosis Adult general medical examination- Primary Unspecified general medical examination Bipolar 1 disorder (CMS/HCC) Seasonal allergies Allergic rhinitis, cause unspecified [facility] Diagnosis - Primary state, incidental [facility] Missed menses , unspecified gestational age Encounter for supervision of normal first in first trimester BV (bacterial vaginosis) Unspecified vaginitis and vulvovaginitis [facility]* Diagnosis First trimester state, incidental 12 weeks gestation of Nausea and vomiting, unspecified vomiting type Well woman exam with routine gynecological exam Routine gynecological examination Vaginal discharge Leukorrhea, not specified as infective STD exposure documented [facility]* Diagnosis 16 weeks gestation of Second trimester state, incidental Screening, , for anatomic survey Encounter for anatomic survey [facility] Diagnosis Second trimester (HHS-HCC) state, incidental 20 weeks gestation of (HHS-HCC) [facility] Diagnosis Second trimester ([facility]HS-HCC) state, incidental 25 weeks gestation of (HHS-HCC) History of induced hypertension H/O pre-eclampsia in prior , currently (HHS-HCC) Diabetes mellitus screening Screening for diabetes mellitus [facility] Attachments The following attachments cannot be sent through Care Everywhere. * Wrist: Exercises ([place]) [facility] Consultation (Routine) - Authorized Specialty Diagnoses / Procedures Referred By Jovita giraldo Referred To Contact Psychiatry Diagnoses Bipolar 1 disorder ([facility]/HCC) Ej Burk NP [address] [place] [address] Referral ID Status Reason Start Date Expiration Date Visits Requested Visits Authorized [id number] Authorized Specialty Services Required 01/16/2023 01/16/2024 1 1 [facility] Summary Purpose Family History No Family History [...] content) DATE CREATED AUTHOR 03/30/2020 [facility] DATE CREATED AUTHOR AUTHOR'S ORGANIZ ATION 08/28/2021 [facility] DATE CREATED AUTHOR AUTHOR'S ORGANIZ ATION 01/19/2023 [facility] DATE CREATED AUTHOR AUTHOR'S ORGANIZ ATION 08/29/2023 [facility] DATE CREATED AUTHOR AUTHOR'S ORGANIZ ATION 08/02/2024 [facility] DATE CREATED AUTHOR AUTHOR'S ORGANIZ ATION 04/28/2025 [facility] dical Specialists EPIC Reason for Visit (unrecogniz [...] Expiration Date Visits Re quested Visits Authorized [id number] 1 1 Reason Comments Amenorrhea Reason Comments [...] Care Teams (unrecognized sec tion and content) Driller'S Offsider Relationship Specialty Start Date End Date Ej Burk NP [address] [place] [phone] PCP - General Family Medicine 07/15/22 Driller'S Offsider Relationship Specialty Start Date End Date Ej Burk NP [address] [place] [phone] PCP - General Family Medicine 07/15/22 Driller'S Offsider Relationship Specialty Start Date End Date Ej Burk NP [address] [place] [phone] PCP - General Family Medicine 07/15/22 Driller'S Offsider Relationship Specialty Start Date End Date Ej Burk NP [address] [place] [phone] PCP - General Family Medicine 07/15/22 Driller'S Offsider Relationship Specialty Start Date End Date Ej Burk CNP [address] [place] [address] PCP - General 01/13/24 Driller'S Offsider Relationship Specialty Start Date End Date Unallocated, Pilo Waller MD [address] [place] [address] PCP - General Family Medicine 01/25/24 Driller'S Offsider Relationship Specialty Start Date End Date Unallocated, Pilo Waller MD [address] [place], [place] [address] [address] PCP - General Family Medicine 01/25/24 Driller'S Offsider Relationship Specialty Start Date End Date Unallocated, Pilo Waller MD [address] [place], [place] [address] [address] PCP - General Family Medicine 01/25/24 Driller'S Offsider Relationship Specialty Start Date End Date Unallocated, Pilo Waller MD [facility] [place] [address] PCP - General Family Medicine 01/25/24 Driller'S Offsider Relationship Specialty Start Date End Date Unallocated, Pilo Waller MD [facility] [place] [address] PCP - General Family Medicine 01/25/24 Driller'S Offsider Relationship Specialty Start Date End Date Unallocated, Pilo Waller MD [address] [place] [address] [place] [address] PCP - General Family Medicine 01/25/24 Driller'S Offsider Relationship Specialty Start Date End Date Unallocated, Pilo Waller MD [address] [place] [address] PCP - General Family Medicine 01/25/24 Driller'S Offsider Relationship Specialty Start Date End Date Unallocated, Pilo Waller MD [address] [place] [address] PCP - General Family Medicine 01/25/24 Driller'S Offsider Relationship Specialty Start Date End Date Unallocated, [facility] [place] [address] PCP - General Family Medicine 01/25/24 Scheduled Active and Recently Administ ered Medications (unrecognized section and content) Medication Order 01/22/2024 01/23/2024 01/24/2024 ferrous sulfate tablet 325 mg 325 mg, Oral, Daily with breakfast, First dose on Thu01/22/24 at 0800 0957 (Given - Provider: Ayah Briceño RN) 0906 (Given - Provider: Mindy Mendoza RN) 0900 (Given - Provider: Nazia Herbert RN) [...] Austin, TARYN)0618 (Given - Provider: Ally Austin, TARYN)1153 (Given - Provider: Mindy Mendoza, TARYN)1744 (Given - Provider: Gema Christian RN) 0017 (Given - Provider: Ally Austin RN)0600 (Given - Provider: Ally Austin RN)1250 (Given - Provider: Nazia Herbert RN) Continuous [...] If indicated, administer prior to discharge. Provide [facility] vaccine information sheet(s) (VIS) for patient for [...] TARYN)1250 (Given - Provider: Nazia Herbert RN) HYDROmorphone (DILAUDID) injection 0.5 mg (COMPLETED) 0.5 mg, Intravenous, Once as needed, Pain Associated with Hemorrhage Management., Starting on Thu01/20/24 at 2057, For 1 dose, Labor & Delivery 0208 (Given - Provider: Claudia Bah, TARYN) HYDROmorphone (DILAUDID) injection 0.5 mg 0.5 mg, [...] an hour. 0309 (Given - Provider: Claudia Bah, TARYN) HYDROmorphone (DILAUDID) injection 0.5 mg 0.5 mg, [...] If indicated, administer prior to discharge. Provide [facility] vaccine information sheet(s) (VIS) for patient for [...] mL/hr), Intravenous, Continuous PRN, itching, Starting on Thu01/21/24 at 0305, Sign and Release, For itching [...] If indicated, administer prior to discharge. Provide [facility] vaccine information sheet(s) (VIS) for patient for [...] BE BASED ON THE PRIMARY CLINICAL RECORDS. [facility]. provides no warranty or guarantee of the accuracy or completeness of information in this document.
[2025-04-28 09:09] LABS: Glucose 1 Hour 153 mg/dL (<180)
[2025-04-28 10:00] LABS: Glucose 2 Hour 130 mg/dL (<155)
[2025-04-28 11:54] LABS: Glucose 3 Hour 121 mg/dL (<140)
== END 2025-04-28 07:35 | disposition home or self-care (01) ==
LOC: LAB 07:34
PROVIDERS: Visit Provider Obstetrics & Gynecology
DX: R73.09 Other abnormal glucose (principal); O26.893 Other specified pregnancy related conditions, third trimester; Z3A.27 27 weeks gestation of pregnancy
CPT/HCPCS: 36415; 82951; 82952

== ENCOUNTER 2025-06-22 12:53 | Outpatient (REF) | payer OTHER, SELFPAY ==
--- OUTSIDE RECORDS SUMMARY | 2024-08-09 13:45 | XMS_ITS | Continuity of Care Document ---
Author Organization [facility] Address [address] [place] [address] Phone Care Team Providers Care Economic Research Analyst Name Role Phone JacobSandhya Unavailable Unavailable Procedures [...] Copied on Encounter Estab - Low () [facility], [address], [place], [place], [address], [place] tel:[phone] [place] No Information Jacob Arthur. [address], [address], [place], [place], [address], [place]. tel:[phone] Estab - Low () [facility], [address], [place], [place], [address], [place] tel:[phone] [place] No Information Jacob Arthur. [address], [address], [place], [place], [address], [place]. tel:[phone] Estab - Low () [facility], [address], [place], [place], [address], [place] tel:[phone] [place] No Information Chandra Kumar. [address], [place], [place], [address], [place]. tel:[phone] [facility], [address], [place], [address], [place] tel:[phone] [place] No Information Cacchio Elisa. [address], [address], [place], [place], [address], [place]. tel:[phone] Estab - Low () [facility], [address], [place], [address], [place] tel:[phone] [place] No Information Cacchio Elisa. [address], [address], [place], [place], [address], [place]. tel:[phone] [facility], [address], [place], [address], [place] tel:[phone] [place] No Information Matthew Werner. [address], [address], [place], [place], [address], [place]. tel:[phone] [facility], [address], [place], [place], [address], [place] tel:[phone] [place] No Information Cacchio Elisa. [address], [address], [place], [place], [address], [place]. tel:[phone] [facility], [address], [place], [place], [address], [place] tel:[phone] [place] No Information Cacchio Elisa. [address], [address], [place], [place], [address], [place]. tel:[phone] [facility], [address], [place], [place], [address], [place] tel:[phone] [place] No Information Cacchio Elisa. [address], [address], [place], [place], [address], [place]. tel:[phone] [facility], [address], [place], [place], [address], [place] tel:[phone] [place] No Information Cacchio Elisa. [address], [place], [place], [address], [place]. tel:[phone] [facility], [address], [place], [address], [place] tel:[phone] [place] No Information Cacchio Elisa. [address], [address], [place], [place], [address], [place]. tel:[phone] [facility], [address], [place], [address], [place] tel:[phone] [place] No Information Cacchio Elisa. [address], [address], [place], [place], [address], [place]. tel:[phone] [facility], [address], [place], [address], [place] tel:[phone] [place] No Information Cacchio Elisa. [address], [place], [place], [address], [place]. tel:[phone] [facility], [address], [place], [address], [place] tel:[phone] [place] No Information Cacchio Elisa. [address], [place], [place], [address], [place]. tel:[phone] [facility], [address], [place], [place], [address], [place] tel:[phone] [place] No Information Cacchio Elisa. [address], [place], [place], [address], [place]. tel:[phone] [facility], [address], [place], [address], [place] tel:[phone] [place] No Information Cacchio Elisa. [address], [place], [place], [address], [place]. tel:[phone] Estab Pt Ob - Moderate (30-39) [facility], [address], [place], [place], [address], [place] tel:[phone] [place] No Information Emilee Pérez. [address], [place], [place], [address], [place]. tel:[phone] New - Low Complexity (30-44) [facility], [address], [place], [place], [address], [place] tel:[phone] [place] No Information Ron Wheeler. [address], [place], [place], [address], [place]. tel:[phone] Family History Family Member Type Diagnosis Age At Onset No Information Payers Payer name Insurance type Covered green party ID [facility](s) [employer] [id number] Social History Type Description Quantity Date Captured [...]
--- OUTSIDE RECORDS SUMMARY | 2025-06-08 14:50 | XMS_ITS | Encounter Summary ---
Author Organization [facility] Address [address] [place] [address] Care Team Providers Care Analytical Strategist Name Role Phone Unallocated, Noms Provider Primary Care [facility] Reason for Visit * Reason Comments Routine Visit Encounter Details Date Type Department Care Team ([facility] Contact Info) Description 06/08/2025 2:50 PM EDT Routine [facility] [address] [place] [address] Katarzyna Roberts, LEHR ATTENDANT [address] [place] [address] 34 weeks gestation of ([facility]); Third trimester ([facility]); Heartburn during in third trimester ([facility]); H/O pre-eclampsia in prior , currently ([facility]) Social History Tobacco Use Types Packs/Day Years [...] Sign Reading Time Taken Comments Blood Pressure 120/70 06/08/2025 3:08 PM EDT Pulse - - Temperature - - Respiratory Rate - - Oxygen Saturation - - Inhaled Oxygen Concentration - - Weight 99.3 kg (219 lb) 06/08/2025 3:08 PM EDT Height - - Body Mass Index 38.79 01/31/2022 12:00 PM EDT documented in this encounter Progress Notes * Katarzyna Roberts, LEHR ATTENDANT - 06/08/2025 2:50 PM EDT Reason for Appointment: Patient ID: Deirdre Yusuf is a 29 y.o. female who presents for Routine Visit Patient presents today for Return OB appointment. MEDICATIONS Current Outpatient Medications Medication Instructions levocetirizine (XYZAL) 5 mg, Every evening omeprazole (PRILOSEC) 20 mg, Oral, Daily before breakfast, Do not crush or chew. Vit-Fe Fumarate-FA ( Vitamins) 28-0.8 MG tablet 1 tablet, Oral, Daily ALLERGIES Allergies Allergen Reactions Octacosanol Other Reaction(s): Unknown Amoxicillin Hives, Itching and Rash Other Reaction(s): hives Fluconazole Hives and Rash Other Reaction(s): GI upset, lip swelling PROBLEMS Active Ambulatory Problems Diagnosis Date Noted H/O pre-eclampsia in prior , currently ([facility]) 04/10/2025 History of induced hypertension 04/10/2025 [...] Cardiovascular: Negative. Gastrointestinal: Negative. Genitourinary: Negative. Musculoskeletal: Negative for arthralgias. Complaints of bilateral hip pain Skin: Negative. Neurological: Negative. All other systems [...] No edema. Left lower leg: No edema. Comments: Right hip pain; pain with deep palpation to left and right hip Neurological: Mental Status: She is alert and oriented to person, place, and time. Skin: General: Skin is warm and dry. Psychiatric: Mood and Affect: Mood normal. Behavior: Behavior normal. Vitals and nursing note reviewed. Exam conducted with a viscosity inspector present. Vitals: Estimated body mass index is 38.79 kg/m?? as calculated from the following: Height as of 01/31/22: 5' 3 . Weight as of this encounter: 219 lb. BP: 120/70 Patient's last menstrual period was 10/13/2024. ASSESSMENT & PLAN ICD-10-CM 1. 34 weeks gestation of ([facility]) Z3A.34 POCT urinalysis dipstick manually resulted 2. Third trimester ([facility]) Z34.93 POCT urinalysis dipstick manually resulted 3. Heartburn during in third trimester ([facility]) O26.893 R12 4. H/O pre-eclampsia in prior , currently ([facility]) O09.299 Return OB: Patient presents today for a routine obstetrics appointment. Patient is currently 34w0d . Patient states she is doing well but has complaints of being tired due to current . Patient has verbalizes frequent movement. labor precautions was discussed/given and patient was instructed to perform kick counts three times a day. Complaints of bilateral hip pain with the right being worse than the left with pain walking standing. Recommend PT evaluation and treatment Orders Placed This Encounter Procedures POCT urinalysis dipstick manually resulted Follow Up: Patient is to return to office in 2 week for routine OB appointment. Documented by Katarzyna Roberts NP on behalf of: Katarzyna Roberts NP documented in this encounter Plan of Treatment Upcoming Encounters Date Type Department Care Team (Late st Contact Info) Description 06/28/2025 9:50 AM EDT Routine [facility] [address] [place] [address] Katarzyna Roberts NP [address] [place] [address] documented as of this encounter Goals Goal Patient Goal Type Associated Problems Recent Progress Patient-Stated? Author Reminders Care Plan OB Reminders No Open Scheduling, Background documented as of this encounter Procedures Procedure Name Priority Date/Time Associated Diagnosis Comments POCT URINALYSIS DIPSTICK Routine 06/08/2025 3:04 PM EDT 34 weeks gestation of ([facility]) Third trimester ([facility]) documented in this encounter Results * POCT urinalysis dipstick manually resulted (06/08/2025 3:04 PM EDT) Color, UA Yellow Clarity, UA Clear Glucose, UA Negative Negative - 2000(110) ++++ mg/dL Bilirubin, UA Negative Negative - 4(70) +++ mg/dL Ketones, UA Negative Negative - 160(16) ++++ mg/dL Spec Grav, UA 1.010 1 - 1.03 Blood, UA Negative Negative - 50 Hernan/mcL pH, UA 6.0 5 - 9 Protein, UA Negative Negative - 2000(20) ++++ mg/dL Urobilinogen, UA 1.0 0.2 - 12 mg/dL Leukocytes, UA Negative Negative - 500+++ Deana/mcL Nitrite, UA Negative Negative - Positive Urine 06/08/2025 3:04 PM EDT Katarzyna Roberts NP POINT OF CARE TEST ENTER/EDIT ORDERABLES Final Result documented in this encounter Visit Diagnoses Diagnosis 34 weeks gestation of ([facility]) Third trimester ([facility]) state, incidental Heartburn during in third trimester ([facility]) H/O pre-eclampsia in prior , currently ([facility]) documented in this encounter Additional Health Concerns Active Problems Noted Date Diagnosed Date OB Reminders 04/26/2025 documented as of this encounter Care Teams Analytical Strategist Relationship Specialty Start Date End Date Unallocated, Noms Provider, [address] [place] [address] PCP - General Family Medicine 01/25/24 documented as of this encounter
--- OUTSIDE RECORDS SUMMARY | 2025-06-22 10:50 | XMS_ITS | Encounter Summary ---
Author Organization [facility] Address [address] [place] [address] Care Team Providers Care Market Stall Vendor Name Role Phone Unallocated, Noms Provider Primary Care [facility] Reason for Visit * Reason Comments Routine Visit Encounter Details Date Type Department Care Team ([facility] Contact Info) Description 06/22/2025 10:50 AM EDT Routine [facility] [address] [place] [phone] Ernestine López PA [address] [place], [place] [phone] Third trimester ([facility]); 36 weeks gestation of ([facility]) Social History Tobacco Use Types Packs/Day [...] Sign Reading Time Taken Comments Blood Pressure 120/76 06/22/2025 11:03 AM EDT Pulse - - Temperature - - Respiratory Rate - - Oxygen Saturation - - Inhaled Oxygen Concentration - - Weight 100 kg (221 lb 3.2 oz) 06/22/2025 11:03 A M EDT Height - - Body Mass Index 39.18 01/31/2022 12:00 PM EDT documented in this encounter Progress Notes * KELL George - 06/22/2025 10:50 AM EDT Reason for Appointment: Patient ID: Deirdre Yusuf is a 29 y.o. female who presents for Routine Visit Patient presents today for Return OB appointment. MEDICATIONS Current Outpatient Medications Medication Instructions levocetirizine (XYZAL) 5 mg, Every evening omeprazole (PRILOSEC) 20 mg, Oral, Daily before breakfast, Do not crush or chew. Vit-Fe Fumarate-FA ( Vitamins) 28-0.8 MG tablet 1 tablet, Oral, Daily ALLERGIES Allergies[1] PROBLEMS Active Ambulatory Problems Diagnosis Date Noted H/O pre-eclampsia in prior , currently ([facility]) 04/10/2025 History of induced hypertension 04/10/2025 Resolved Ambulatory Problems Diagnosis Date Noted No Resolved Ambulatory Problems No Additional Past Medical History HISTORY PAST MEDICAL HISTORY SOCIAL HISTORY Medical History[2] Social History Tobacco Use Smoking status: Not on file Smokeless tobacco: Not on file Substance Use Topics Alcohol use: Not on file Drug use: Not on file FAMILY HISTORY Family History[3] SURGICAL HISTORY Surgical History[4] REVIEW OF SYSTEMS Review of Systems: Review [...] reviewed. Vitals: Estimated body mass index is 39.18 kg/m?? as calculated from the following: Height as of 01/31/22: 5' 3 . Weight as of this encounter: 221 lb 3.2 oz. BP: 120/76 Patient's last menstrual period was 10/13/2024. ASSESSMENT & PLAN ICD-10-CM 1. Third trimester ([facility]) Z34.93 CULTURE, GROUP B STREP WITH SUSCEPTIBLITY CULTURE, GROUP B STREP WITH SUSCEPTIBLITY 2. 36 weeks gestation of ([facility]) Z3A.36 POCT urinalysis dipstick manually resulted Patient is doing well but has complaints of being tired and having maternal discomfort due to . Patient verbalized frequent movement and was instructed to perform kick counts three times per day. labor precautions were given, LARC consent was signed/declined, and GBS was obtained. Cervical check was performed and patient is 0cm dilated. Orders Placed This Encounter Procedures CULTURE, GROUP B STREP WITH SUSCEPTIBLITY POCT urinalysis dipstick manually resulted Follow Up: Patient is to return to office in 1 week for routine OB appointment Documented by KELL George on behalf of: KELL George [1] Allergies Allergen Reactions Octacosanol Other Reaction(s): Unknown Amoxicillin Hives, Itching and Rash Other Reaction(s): hives Fluconazole Hives and Rash Other Reaction(s): GI upset, lip swelling [2] No past medical history on file. [3] No family history on file. [4] History reviewed. No pertinent surgical history. documented in this encounter Plan of Treatment Upcoming Encounters Date Type Department Care Team (Late st Contact Info) Description 06/28/2025 9:50 AM EDT Routine [facility] [address] [place] [address] Katarzyna Roberts, JAZMIN [address] [place] [address] Scheduled Orders Name Type Priority Associated Diagnoses Orde r Schedule CULTURE, GROUP B STREP WITH SUSCEPTIBLITY Lab Routine Third trimester ([facility]) Expected: 06/22/2025, Expires: 06/22/2026 documented as of this encounter Goals Goal Patient Goal Type Associated Problems Recent Progress Patient-Stated? Author Reminders Care Plan OB Reminders No Open Scheduling, Background documented as of this encounter Procedures Procedure Name Priority Date/Time Associated Diagnosis Comments POCT URINALYSIS DIPSTICK Routine 06/22/2025 11:12 AM EDT 36 weeks gestation of ([facility]) documented in this encounter Results * (ABNORMAL) POCT urinalysis dipstick manually resulted (06/22/2025 11:12 AM EDT) Color, UA Yellow Clarity, UA Clear Glucose, UA Negative Negative - 2000(110) ++++ mg/dL Bilirubin, UA Negative Negative - 4(70) +++ mg/dL Ketones, UA Negative Negative - 160(16) ++++ mg/dL Spec Grav, UA 1.015 1 - 1.03 Blood, UA Negative Negative - 50 Hernan/mcL pH, UA 6.0 5 - 9 Protein, UA Trace Negative - 2000(20) ++++ mg/dL Urobilinogen, UA 2.0 0.2 - 12 mg/dL Leukocytes, UA 1+ Negative - 500+++ Deana/mcL Nitrite, UA Negative Negative - Positive Urine 06/22/2025 11:1 2 AM EDT Ernestine CASTORENA POINT OF CARE TEST ENTER/EDIT OR DERABLES Final Result documented in this encounter Visit Diagnoses Diagnosis Third trimester ([facility]) state, incidental 36 weeks gestation of ([facility]) documented in this encounter Additional Health Concerns Active Problems Noted Date Diagnosed Date OB Reminders 04/26/2025 documented as of this encounter Care Teams Market Stall Vendor Relationship Specialty Start Date End Date Unallocated, Noms Provider, [place] [address] PCP - General Family Medicine 01/25/24 documented as of this encounter
--- OUTSIDE RECORDS SUMMARY | 2025-06-22 13:04 | XMS_ITS | Clinical Summary ---
Author Organization [facility] Address [address] [place] [address] Care Team Providers Care Chrome Plater Name Role Phone Unallocated, Noms Provider Primary Care Provi layo Allergies Active Allergy Reactions Criticality Noted Date Comments Amoxicillin Hives,Itching,Rash Low 07/27/2017 Other Reaction(s): hives Fluconazole Hives,Rash Low 06/22/2021 Other Reaction(s): GI upset, lip swelling Octacosanol 12/22/2024 Other Reaction(s): Unknown Medications Vit-Fe Fumarate-FA ( Vitamins) 28-0.8 MG tabletIndication s:, unspecified gestational age ([facility]),Encoun ter for supervision of normal first in first trimester ([facility]) Take 1 tablet by mouth Daily 30 tablet 5 12/23/19 26 Active levocetirizine (Xyzal) 5 MG tablet Take 5 mg by mouth in the evening Active omeprazole (PriLOSEC) [address] capsuleIndicatio ns:Heartburn during in third trimester ([facility]) Take 1 capsule (20 mg) by mouth in the morning. Take before meals. Do not crush or chew. 30 capsule 5 05/24/20 26 Active omeprazole (PriLOSEC) [address] capsuleIndicatio ns:Heartburn during in third trimester ([facility]) Take 1 capsule (20 mg) by mouth in the morning. Take before meals. Do not crush or chew. 30 capsule 11 5 05/24/20 25 Discontinu ed(Reorder ) Active Problems Problem Noted Date Diagnosed Date H/O pre-eclampsia in prior p regnancy, currently ([facility]) 04/10/2025 History of induced hypertension 2024 Estimated Date of Delivery Comme nts Yes 07/20/2025 Based on last me nstrual period of 10/13/2024 Encounters Date Type Department Care Team Description 06/22/2025 10:50 AM EDT Routine [facility]INK[facility]N [address] [place] [address] Ernestine López PA Third trimester ([facility]); 36 weeks gestation of ([facility]) 06/22/2025 Bamboo [place] [address] Ernestine López PA 06/19/2025 Abstract [facility] HERMOSILLO [address] [facility] [address] Josiah Childs DO 06/08/2025 2:50 PM EDT Routine [facility] [place] [address] Katarzyna Roberts NP 34 weeks gestation of ([facility]); Third trimester ([facility]); Heartburn during in third trimester ([facility]); H/O pre-eclampsia in prior , currently ([facility]) 06/08/2025 Bamboo flowsheet [facility]ath[facility] FONSECAN [address] [place] [address] Katarzyna Roberts NP 05/24/2025 10:20 AM EDT Routine [facility] [address]INK[facility]N [address] [place] [address] Ernestine López PA Third trimester ([facility]); 31 weeks gestation of ([facility]); Heartburn during in third trimester ([facility]) 05/24/2025 Bamboo flowsheet [facility] S[facility] [address] [place] [address] Ernestine López PA 05/10/2025 2:40 PM EDT Routine [facility] [address] [place] [address] Jsoiah Childs, Third trimester ([facility]); 29 weeks gestation of ([facility]); Heartburn during in third trimester ([facility]) 05/10/2025 2:00 PM EDT Ancillary Procedure [facility] [place] [address] size inconsistent with dates ([facility]) 04/28/2025 Clinisync Result Encounter NOMS External Department Unsolicited Josiah Childs, 04/26/2025 11:10 AM EDT Routine [facility] [address] [place] [address] Josiah Childs, 27 weeks gestation of ([facility]); Second trimester ([facility]); History of induced hypertension; H/O pre-eclampsia in prior , currently ([facility]); Elevated glucose tolerance test; Vaginal discharge; size inconsistent with dates ([facility]); Yeast infection 04/26/2025 Bamboo flowsheet [facility] FONSECAN [address] [facility] [address] Josiah Childs, 04/21/2025 Clinisync Result Encounter NOMS External Department Unsolicited Katarzyna Roberts NP 04/19/2025 Abstract [facility] HERMOSILLO [address] [facility] [address] Josiah Childs, 04/14/2025 Abstract [facility] [place] [address] Elizabeth Weeks MA 04/10/2025 11:30 AM EDT Routine [facility] HERMOSILLO [address] [place], [place] [address] [address] Katarzyna Roberts, JAZMIN Second trimester ([facility]); 25 weeks gestation of ([facility]); History of induced hypertension; H/O pre-eclampsia in prior , currently ([facility]); Diabetes mellitus screening 04/10/2025 11:00 AM EDT Ancillary Procedure PILO HERMOSILLO [address] [place] [address] [place] [address] Encounter for follow-up ultrasound of anatomy ([facility]) from Last 3 Months Social History Tobacco [...] oz) 06/22/2025 11:03 A M EDT Height 160 cm (5' 3 ) 01/31/2022 12:00 PM EDT Body Mass Index 39.18 01/31/2022 12:00 PM EDT Plan of Treatment Upcoming Encounters Date Type Department Care Team (Late st Contact Info) Description 06/28/2025 9:50 AM EDT Routine [facility] HERMOSILLO [address] [place] [address] [place] [address] Katarzyna Roberts, JAZMIN [address] [place] [address] (work) Health Maintenance Due Date Last Done Comments Influenza Vaccine (#1) 2025 2, 06/20/2020, 06/22/2019, Additional history exists Goals Goal Patient Goal Type Associated Problems Recent Progress Patient-Stated? Author Reminders Care Plan OB Reminders No Open Scheduling, Background Procedures Procedure Name Priority Date/Time Associated Diagnosis Comments POCT URINALYSIS DIPSTICK Routine 06/22/2025 11:12 AM EDT 36 weeks gestation of ([facility]) POCT URINALYSIS DIPSTICK Routine 06/08/2025 3:04 PM EDT 34 weeks gestation of ([facility]) Third trimester ([facility]) POCT URINALYSIS DIPSTICK Routine 05/24/2025 10:35 AM EDT Third trimester ([facility]) POCT URINALYSIS DIPSTICK Routine 05/10/2025 2:45 PM EDT Third trimester ([facility]) US OB FOLLOW UP TRANSABDOMINAL APPROACH Routine 05/10/2025 2:21 PM EDT size inconsistent with dates ([facility]) GLUCOSE TOLERANCE 3 HOUR Routine 04/28/2025 7:38 AM EDT RECURRENT VAGINITIS (HTRX) Routine 04/26/2025 12:16 PM EDT POCT URINALYSIS DIPSTICK Routine 04/26/2025 11:29 AM EDT 27 weeks gestation of ([facility]) Second trimester ([facility]) ALL CBC WITH AUTO DIFF Routine 11:31 AM EDT GLUCOSE 1 HOUR Routine 04/21/2025 11:31 AM EDT POCT URINALYSIS DIPSTICK Routine 04/10/2025 11:37 AM EDT Second trimester ([facility]) US OB LIMITED 1+ FETUSES Routine 04/10/2025 11:26 AM EDT Encounter for follow-up ultrasound of anatomy ([facility]) from Last 3 Months Results * (ABNORMAL) POCT urinalysis dipstick manually resulted (06/22/2025 11:12 AM EDT) Only the most recent of6 resultswithin the time period is included. Color, [...] CARE TEST ENTER/EDIT OR DERABLES Final Result * US OB follow up transabdominal approach (05/10/2025 2:21 PM EDT) Anatomical Region Laterality Modality Body Ultrasound 05/10/2025 3:43 PM EDT Impressions 05/11/2025 7:33 AM EDT 1. Single, live intrauterine , current sonographic age of 29 weeks and 3 days, with an estimated date of delivery of July 23, 2025. 2. Comparison made with prior examination of March 02, 2025 delivery at that time was July 22, 2025, weight by percentile was 53.0% 3. LEÓN 19.0 cm. * Estimated Weight (g) by Percentile is based upon an accurate estimated age based on last menstrual period. TRANSCRIBED BY: ELECTRONICALLY SIGNED BY: Oseas Martines MD Narrative 05/11/2025 7:33 AM EDT A single, live intrauterine is present with normal cardiac rate of 161 beats per minute. Normal activity and amniotic fluid volume. Amniotic fluid index is 19.0 cm. Morphology is grossly normal. The current sonographic age is 29 weeks and 3 days, based on the following measurements: BPD 7.2 cm (28 weeks, 6 days) Head Circumference 27.1cm ( 29 weeks, 4 days) Abdominal Circumference 24.7cm ( 28 weeks, 6 days) Femur Length 5.7 cm ( 30 weeks, 1 days) Presentation Cephalic Weight (g) by Percentile 21.6 % * These measurements result in an estimated date of delivery of July 23, 2025. The current estimated weight is 1380 grams ( 3 pound, 1 ounces). Procedure Note Oseas Martines MD - 05/11/2025 A single, live intrauterine is present with normal cardiacrate of 161 beats per minute. Normal activity and amniotic fluidvolume. Amniotic fluid index is 19.0 cm. Morphology is grossly normal.The current sonographic age is 29 weeks and 3 days, based on thefollowing measurements: BPD 7.2 cm (28 weeks, 6 days) Head Circumference 27.1cm ( 29 weeks, 4 days) Abdominal Circumference 24.7cm ( 28 weeks, 6 days) Femur Length 5.7 cm ( 30 weeks, 1 days) Presentation Cephalic Weight (g) by Percentile 21.6 % * These measurements result in an estimated date of delivery of July. The current estimated weight is 1380 grams ( 3 pound, 1ounces). IMPRESSION: 1. Single, live intrauterine , current sonographic age of 29weeks and 3 days, with an estimated date of delivery of July. 2. Comparison made with prior examination of March 02, 2025 delivery atthat time was July 22, 2025, weight by percentile was 53.0% 3. LEÓN 19.0 cm. * Estimated Weight (g) by Percentile is based upon an accurateestimated age based on last menstrual period. TRANSCRIBED BY: ELECTRONICALLY SIGNED BY: Oseas Martines MD us Josiah Amadeo DO IMG OB US PROCEDURES Final Resul t * (ABNORMAL) GLUCOSE TOLERANCE 3 HOUR (04/28/2025 7:38 AM EDT) GLUCOSE TOLERANCE 3 HOUR (H) mg/dL TB Comment: GLU FAST 95H (<95) Col: 04/28/25 0738 GLU 1HR 153 (<180) Col: 04/28/25 0842 GLU 2HR 130 (<155) Col: 04/28/25 0942 GLU 3HR 121 (<140) Col: 04/28/25 1041 04/28/2025 7:38 AM EDT 04/28/2025 7:45 AM EDT Narrative [facility] - 04/28/2025 11:56 AM EDT us Josiah Amadeo DO LAB BLOOD ORDERABLES Final Resul t [facility] * RECURRENT VAGINITIS (HTRX) (04/26/2025 12:16 PM EDT) ATOPOBIUM VAGINAE 0 19.961 - 24.689 ppm 04/27/2025 6:13 AM EDT [facility] ATOPOBIUM VAGINAE Not Detected 19.961 - 24.689 ppm 04/27/2025 6:13 AM EDT [facility] BVAB 2,3 (BACTERIAL VAGINOSIS ASSOCIATED BACTERIA 2, 3); MOBILUNCUS SPP 0 19.961 - 24.689 ppm 04/27/2025 6:13 AM EDT [facility] BVAB 2,3 (BACTERIAL VAGINOSIS ASSOCIATED BACTERIA 2, 3); MOBILUNCUS SPP Not Detected 19.961 - 24.689 ppm 04/27/2025 6:13 AM EDT [facility] MARTHA ALBICANS, PARAPSILOSIS, TROPICALIS 0 23.000 - 30.347 ppm 04/27/2025 6:13 AM EDT [facility] MARTHA ALBICANS, PARAPSILOSIS, TROPICALIS Not Detected 23.000 - 30.347 ppm 04/27/2025 6:13 AM EDT [facility] MARTHA GLABRATA 0 23.000 - 31.618 ppm 04/27/2025 6:13 AM EDT [facility] MARTHA GLABRATA Not Detected 23.000 - 31.618 ppm 04/27/2025 6:13 AM EDT [facility] MARTHA KRUSEI 0 23.000 - 30.873 ppm 04/27/2025 6:13 AM EDT [facility] MARTHA KRUSEI Not Detected 23.000 - 30.873 ppm 04/27/2025 6:13 AM EDT [facility] CHLAMYDIA TRACHOMATIS 0 23.000 - 31.586 ppm 04/27/2025 6:13 AM EDT [facility] CHLAMYDIA TRACHOMATIS Not Detected 23.000 - 31.586 ppm 04/27/2025 6:13 AM EDT [facility] GARDNERELLA VAGINALIS 0 19.961 - 24.689 ppm 04/27/2025 6:13 AM EDT [facility] GARDNERELLA VAGINALIS Not Detected 19.961 - 24.689 ppm 04/27/2025 6:13 AM EDT [facility] MEGASPHAERA (TYPES 1, 2) 0 19.961 - 24.689 ppm 04/27/2025 6:13 AM EDT [facility] MEGASPHAERA (TYPES 1, 2) Not Detected 19.961 - 24.689 ppm 04/27/2025 6:13 AM EDT [facility] NEISSERIA GONORRHOEAE 0 23.000 - 32.587 ppm 04/27/2025 6:13 AM EDT [facility] NEISSERIA GONORRHOEAE Not Detected 23.000 - 32.587 ppm 04/27/2025 6:13 AM EDT [facility] TRICHOMONAS VAGINALIS 0 23.000 - 31.995 ppm 04/27/2025 6:13 AM EDT [facility] TRICHOMONAS VAGINALIS Not Detected 23.000 - 31.995 ppm 04/27/2025 6:13 AM EDT [facility] MYCOPLASMA GENITALIUM 0 19.961 - 24.689 ppm 04/27/2025 6:13 AM EDT [facility] MYCOPLASMA GENITALIUM Not Detected 19.961 - 24.689 ppm 04/27/2025 6:13 AM EDT [facility] Tissue 04/26/2025 12:1 6 PM EDT 04/27/2025 1:34 AM EDT us Josiah Childs DO LAB BLOOD ORDERABLES Final Resul t [facility] [address] [place] [address] * (ABNORMAL) GLUCOSE 1 HOUR (04/21/2025 11:31 AM EDT) GLUCOSE 1 HOUR 160(H) <130 mg/dL TBH 04/21/2025 11:3 1 AM EDT 04/21/2025 11:32 AM EDT Narrative [facility] - 04/21/2025 12:23 PM EDT Katarzyna Roberts SEX OFFENDER TREATMENT PROFESSIONAL LAB BLOOD ORDERABLES Final Re sult [facility] TB * (ABNORMAL) ALL CBC WITH AUTO DIFF (04/21/2025 11:31 AM EDT) TB WBC 8.6 4.0 - 11.0 10 3/uL TBH TBH RBC 3.76(L) 4.20 - 5.40 10 6/uL TBH TBH HGB 11.9(L) 12.0 - 16.0 g/dL TBH TBH HCT 35.3(L) 36.0 - 48.0 % TBH TBH MCV 93.9 81.0 - 99.0 fL TBH TBH MCH 31.6 26.7 - 34.0 pg TBH TBH MCHC 33.7 29.9 - 35.2 g/dL TBH TBH RDW 13.6 11.0 - 15.0 % TBH TBH PLT 163 150 - 450 10 3/uL TBH TBH MPV 10.1 9.5 - 13.5 fL TBH NEUTROPHILS PERCENT AUTO 82.1(H) 43.0 - 75.0 % TBH LYMPHOCYTES PERCENT AUTO 10.4(L) 20.5 - 60.0 % TBH MONOCYTES PERCENT AUTO 6.4 1.7 - 12.0 % TBH TBH EO % 0.8(L) 0.9 - 7.0 % TBH BASOPHILS PERCENT AUTO 0.1(L) 0.2 - 2.0 % TBH IMMATURE GRANULOCYTES PCT AUTO 0.2 0.0 - 0.5 % TBH NEUTROPHILS ABSOLUTE AUTO 7.1(H) 1.4 - 6.5 10 3/uL TBH LYMPHOCYTES ABSOLUTE AUTO 0.9(L) 1.2 - 3.8 10 3/uL TBH MONOCYTES ABSOLUTE AUTO 0.6 0.3 - 0.8 10 3/uL TBH TBH EO # 0.1 0.0 - 0.7 10 3/uL TBH BASOPHILS ABSOLUTE AUTO 0.0 0.0 - 0.1 10 3/uL TBH IMMATURE GRANULOCYTES ABS AUTO 0.02 0.00 - 0.03 10 3/uL TBH 04/21/2025 11:3 1 AM EDT 04/21/2025 11:32 AM EDT Narrative LISA - 04/21/2025 12:42 PM EDT Katarzyna Roberts NP CLINISYNATA Final Result [facility] TB * US OB limited 1+ fetuses (04/10/2025 [...] Final Resul t from Last 3 Months Additional Health Concerns Active Problems Noted Date Diagnosed Date OB Reminders 04/26/2025 Insurance [employer] Care Teams Chrome Plater Relationship Specialty Start Date End Date Unallocated, Noms Provider, [address] [place], [place] [id number] PCP - General Family Medicine 01/25/24
--- OUTSIDE RECORDS SUMMARY | 2025-06-22 13:04 | XMS_ITS | Encounter Summary ---
Author Organization [facility] Address [address] [facility] [place] [address] Care Team Providers Care Campus Executive Director Name Role Phone Unallocated, Noms Provider Primary Care Provi [facility] Encounter Details Date Type Department Care Team (Late st Contact Info) Description 06/19/2025 Abstract PILO HERMOSILLO [address] [place] [address] Josiah Childs DO [address] [place], [place] [address] Social History Tobacco Use Types Packs/Day Years [...] Info) Description 06/28/2025 9:50 AM EDT Routine PILO HERMOSILLO [address] [place] [address] Katarzyna Roberts, COMPUTER HELP DESK REPRESENTATIVE [address] [place] [address] documented as of this encounter Goals Goal Patient Goal Type Associated Problems Recent Progress Patient-Stated? Author Reminders Care Plan OB Reminders No Open Scheduling, Background documented as of this encounter Visit Diagnoses Not on filedocumented in this encounter Additional Health Concerns Active Problems Noted Date Diagnosed Date OB Reminders 04/26/2025 documented as of this encounter Care Teams Campus Executive Director Relationship Specialty Start Date End Date Unallocated, Noms Provider, [address] [place] [address] PCP - General Family Medicine 01/25/24 documented as of this encounter
--- OUTSIDE RECORDS SUMMARY | 2025-06-22 13:04 | XMS_ITS | Encounter Summary ---
Author Organization [facility] Address [address] [facility] [place] [address] Care Team Providers Care Field Scout Name Role Phone Unallocated, Noms Provider Primary Care [facility] Encounter Details Date Type Department Care Team (Late Contact Info) Description 06/22/2025 Bamboo flowsheet PILO HERMOSILLO [address] [place] [address] Ernestine López PA [address] [place] [address] [place], [place] [address] Social History Tobacco Use Types Packs/Day Years [...] Department Care Team (Late Contact Info) Description 06/28/2025 9:50 AM EDT Routine N[facility] HERMOSILLO [address] [place] [address] Katarzyna Roberts, JAZMIN [address] [facility] [address] [address] documented as of this encounter Goals Goal Patient Goal Type Associated Problems Recent Progress Patient-Stated? Author Reminders Care Plan OB Reminders No Open Scheduling, Background documented as of this encounter Visit Diagnoses Not on filedocumented in this encounter Additional Health Concerns Active Problems Noted Date Diagnosed Date OB Reminders 04/26/2025 documented as of this encounter Care Teams Field Scout Relationship Specialty Start Date End Date Unallocated, Noms Provider, [address] [place] [address] PCP - General Family Medicine 01/25/24 documented as of this encounter
--- OUTSIDE RECORDS SUMMARY | 2025-06-22 13:04 | XMS_ITS | Encounter Summary ---
Author Organization [facility] Address [address] [facility] [place] [address] Care Team Providers Care Pole Truck Driver Name Role Phone Unallocated, Noms Provider Primary Care [facility] Encounter Details Date Type Department Care Team (Late st Contact Info) Description 04/14/2025 Abstract PILO HERMOSILLO [address] [place] [address] Elizabeth Weeks MA Social History Tobacco [...] EDT Routine PILO HERMOSILLO [address] [place] [address] Katarzyna Roberts, JAZMIN [address] [place] [address] documented as of this encounter Visit Diagnoses Not on filedocumented in this encounter Care Teams Pole Truck Driver Relationship Specialty Start Date End Date Unallocated, Noms Provider, [place] [address] PCP - General Family Medicine 01/25/24 documented as of this encounter
--- OUTSIDE RECORDS SUMMARY | 2025-06-22 13:04 | XMS_ITS | Encounter Summary ---
Author Organization [facility] Address [address] [facility] [place] [address] Care Team Providers Care Poker Prop Player Name Role Phone Unallocated, Noms Provider Primary Care [facility] Encounter Details Date Type Department Care Team (Late st Contact Info) Description 06/08/2025 Bamboo flowsheet [facility]ILO [facility] [address] [facility] [address] Katarzyna Roberts, JAZMIN [address] [place] [address] Social History Tobacco Use Types Packs/Day Years [...] EDT Routine PILO HERMOSILLO [address] [place] [address] Katarzyna Roberts, OIL WELL SERVICE UNIT OPERATOR [address] [place] [address] documented as of this encounter Goals Goal Patient Goal Type Associated Problems Recent Progress Patient-Stated? Author Reminders Care Plan OB Reminders No Open Scheduling, Background documented as of this encounter Visit Diagnoses Not on filedocumented in this encounter Additional Health Concerns Active Problems Noted Date Diagnosed Date OB Reminders 04/26/2025 documented as of this encounter Care Teams Poker Prop Player Relationship Specialty Start Date End Date Unallocated, Noms Provider, [address] [place] [address] PCP - General Family Medicine 01/25/24 documented as of this encounter
--- OUTSIDE RECORDS SUMMARY | 2025-06-22 13:04 | XMS_ITS | Encounter Summary ---
Author Organization [facility] Address [address] [facility] [place] [address] Care Team Providers Care Diet Attendant Name Role Phone Unallocated, Noms Provider Primary Care [facility] Encounter Details Date Type Department Care Team (Late st Contact Info) Description 01/13/2025 Orders Only [facility] HERMOS[facility]O [address] [place] [address] Eilzabeth Weeks MA Social History Tobacco Use Types [...] 9:50 AM EDT Routine NOM[facility] HERMOSILLO [address] [place] [address] Katarzyna Roberts NP [address] [place] [address] documented as of this encounter Procedures Procedure Name Priority Date/Time Associated Diagnosis Comments PAP SMEAR Routine 01/05/2025 12:00 AM EDT documented in this encounter Results * Pap Smear (01/05/2025 12:00 AM EDT) Swab Cervical swab / Unknown us Josiah Amadeo DO LAB CYTOLOGY ORDERABLES Final Re sult EXTERNAL LAB documented in this encounter Visit Diagnoses Not on filedocumented in this encounter Care Teams Diet Attendant Relationship Specialty Start Date End Date Unallocated, Noms Provider, [address] [place] [address] PCP - General Family Medicine 01/25/24 documented as of this encounter
--- OUTSIDE RECORDS SUMMARY | 2025-06-22 13:04 | XMS_ITS ---
Author Organization [facility] Address [address] [place] [address] Care Team Providers Care Green Chain Operator Name Role Phone Unallocated, Noms Provider Primary Care [facility] Status:Identified (Enrolling) Start date:06/22/2025 Enrollment reason:Identified by Health Plan Case Team Name Relationship Phone Ernestine Martin LPN(Responsible Staff) [facility] [phone] Continued Care and Services Coordination
--- OUTSIDE RECORDS SUMMARY | 2025-06-22 13:04 | XMS_ITS | Clinical Summary ---
Author Organization [facility] Address [address] [place] [address] Care Team Providers Care Recordak Operator Name Role Phone Alicia Jurado BUSINESS SYSTEMS ADVISOR Primary Care Provider + [phone] Allergies Active Allergy Reactions Criticality Noted Date Comments Amoxicillin Rash Low 07/27/2017 Fluconazole Hives 01/20/2024 Medications cetirizine (ZYRTEC) 10 MG tablet 06/01/2023 Active prenat.vits,raina, oyg-ipqm-ldmks Tab Take by mouth . Active Active Problems Problem Noted Date Diagnosed Date 01/20/2024 Social History Tobacco Use Types Packs/Day Years Used Date Smoking Tobacco: Never Smokeless Tobacco: Never Tobacco Cessation:Counseling Given: Not Answered Alcohol Use Standard Drinks/Week Comments Not Currently 0 (1 standard drink = 0.6 oz pur e alcohol) [facility] Utilities Answer Date Recorded In the past 12 months has [facility] [employer], gas, oil, or water [employer] threatened to shut off services in your [...] place to sleep or slept in a half-way (including now)? No 01/21/2024 Comments No Sex [...] 10yrs 08/29/2018 08/29/2008 COVID-19 Vaccine ( season) 2025 08/12/2021, 12/19/2020, 11/27/2020 Influenza Vaccine (#1) 2025 [...] Ab Negative Negative 01/20/2024 10:56 PM EDT [facility] Blood BLOOD SPECIMEN / Unknown Venipuncture / Unknown 01/20/2024 8:29 PM EDT 01/20/2024 8:56 PM EDT Narrative [facility] - 01/20/2024 10:56 PM EDT Test performed using Dorie KERRI immunoassay system Jose Foley MD LAB BLOOD ORDERABLES Final Result [facility] [address] [place] [address] from Last 3 Months or Most Recently Relevant to Health Maintenance Insurance MEDICARE H[facility]PP[facility] [id number] Advance Directives For more information, please contact: [phone] * Full Code (Latest Code Status on File) Date Activated Date Inactivated Comments 01/22/2024 5:02 AM 01/24/2024 6:06 PM * Full Code Date Activated Date Inactivated Comments 01/22/2024 12:48 AM 01/22/2024 3:31 AM * Full Code Date Activated Date Inactivated Comments 01/20/2024 8:58 PM 01/22/2024 12:48 AM Care Teams Recordak Operator Relationship Specialty Start Date End Date Alicia Jurado CNP [address] [place] [address] PCP - General 01/13/24
--- OUTSIDE RECORDS SUMMARY | 2025-06-22 13:05 | XMS_ITS | Encounter Summary ---
Author Organization [facility] Address [address] [place] [address] Care Team Providers Care Scale Reclamation Tender Name Role Phone Unallocated, Noms Provider [facility] Encounter Details Date Type Department Care Team (Late st Contact Info) Description 04/19/2025 Abstract [facility] [address] [place] [address] Josiah Childs DO [address] [place], [place] [address] Social History Tobacco Use Types Packs/Day Years [...] EDT Routine [facility] [address] [place] [address] Katarzyna Roberts, TESTBOARD OPERATOR [address] [place] [address] documented as of this encounter Visit Diagnoses Not on filedocumented in this encounter Care Teams Scale Reclamation Tender Relationship Specialty Start Date End Date Unallocated, Noms Provider, [address] [place] [address] PCP - General Family Medicine 01/25/24 documented as of this encounter
--- OUTSIDE RECORDS SUMMARY | 2025-06-22 13:06 | XMS_ITS | CCD ---
Author Organization [facility] ion [facility] Care Team Providers Care Warp Dresser Name Role Phone ROSALEE LR Admitting Unavailable ROSALEE LR Attending Unavailable ROSALEE LR Consulting Unavailable HERIBERTO JHA Admitting Unavailable HERIBERTO JHA Attending Unavailable MISC, DOCTOR Primary Care Unavailable TIMTERRANCE HERIBERTO Consulting Unavailable WYATT CURRAN Consulting Unavailable Neuhart STAFFING MANAGER, Ej Primary Care Provider Rhiannon STAFFING MANAGER, Ej Primary Care Provider EJ BURK Attending Unavailable NEUSINCERET, EJ Primary Care Unavailable NEUEJ HAWKINS Attending Unavailable NEUHART, EJ Primary Care Unavailable NEUSINCERET, EJ Primary Care Unavailable NEUROSS EJ Attending Unavailable PAMELA WILLIAM Attending Unavailabl e NO, PHYSICIAN Primary Care Unavailable Neuhart Elvis BANGURAa Primary Care Provider [phone] FRANKIE ARTIS Attending Unavailab JAMES Muñoz Admitting Unavailable NO, PHYSICIAN Primary Care Unavailable MONTICELLO PHYSICIAN ANESTHESIA SERVICES, GENERIC C onsulting Unavailable Unallocated MD, Noms Provider Primary Care Provi layo JOSIAH CHILDS Attending Unavailable ERNESTINE LÓPEZ Attending Unavailable ERNESTINE LÓPEZ Attending Unavailable QUINCY ROBERTS Attending Unavailable JOSIAH CHILDS Attending Unavailable JOSIAH CHILDS Referring Unavailable JOSIAH CHILDS Attending Unavailable ERNESTINE LÓPEZ Attending Unavailable QUINCY ROBERTS Attending Unavailable Allergies Allergy Classification Reported Allergen(s) Allergy Type Date of Onset Reaction(s) Facility (20 sources) Amoxicillin; Translations: [AMOXICILLIN] Drug Allergy 7 Hives, Itching, Rash [facility] (6 sources) Fluconazole; Translations: [FLUCONAZOLE] Drug Allergy 1 Rash, Hives [facility] Work Phone: (20 sources) Fluconazole Allergy to substance 1 Hives, Rash [facility] (20 sources) Octacosanol Drug Intolerance 5 [facility] Medications Current Medications Medication Drug Class(es) [...] tablet levocetirizine dihydrochloride 5 mg oral tablet (20 sources) Histamine-1 Receptor Antagonist take 1 tablet [...] 7 days. 14 tablet 12/22/2024 12/29/2024 Active omeprazole 20 mg delayed release oral capsule (13 sources) Proton Pump Inhibitor Start: 05-10-2025 End: 05-24-2026 take 1 capsule by mouth before mealtime omeprazole (PriLOSEC) [address] capsule Indications: Heartburn during in third trimester ([facility]) Take 1 capsule (20 mg) by mouth in the morning. Take before meals. Do not crush or chew. 30 capsule 05/24/2025 05/24/2026 Active prenat.vits,raina,mi a-[id number] Tab (2 sources) prenat.vits,raina, min -iron-folic Tab Take by mouth . 0 Active prenat.vits,raina, [id number] Tab Take by mouth . 0 Vit-Fe Fumarate-FA ( Vitamins) 28-0.8 MG tablet (20 sources) Start: 12-22-2024 End: 12-22-2025 take 1 tablet by mouth once daily Vit-Fe Fumarate-FA ( Vitamins) 28-0.8 MG tablet Indications: , unspecified gestational age ([facility]) , Encounter for supervision of normal first in first trimester ([facility]) Take 1 tablet by mouth Daily 30 tablet 11 12/22/2024 12/22/2025 Active Start: 12-22-2024 End: 12-22-2025 take 1 tablet by mouth once daily Vit-Fe Fumarate-FA ( Vitamins) 28-0.8 MG tablet Indications: , unspecified gestational age , Encounter for supervision of normal first in first trimester Take 1 tablet by mouth Daily 30 tablet 11 12/22/2024 12/22/2025 Active terconazole 4 mg/ml vaginal cream (3 sources) Azole Antifungal Start: 04-26-2025 End: 05-03-2025 terconazole (Terazol 7) 0.4 % vaginal cream Indications: Vaginal discharge , Yeast infection Insert 1 applicator into the vagina at bedtime for 7 days 45 g 04/26/2025 05/03/2025 Active Completed/Discontinued Medications Medication Drug Class(es) Dates [...] 01-21-2024 End: 01-24-2024 Epidural, Continuous, Starting on Thu01/21/24 at 0400, Sign and Release, Only the [...] of diseases classified elsewhere] Onset: 08-27-2023 Episodic Diabetes mellitus without complication (2 sources) Abnormal glucose tolerance test; Translations: [Other abnormal glucose] 04-26-2025 Episodic Immunizations and screening for infectious disease [...] [Bipolar disorder, unspecified] Onset: 06-22-2019 08-25-2022 Chronic Mycoses (2 sources) Mycosis; Translations: [Candidiasis, unspecified] 04-26-2025 Episodic Nausea and vomiting (2 sources) Nausea and vomiting; Translations: [Nausea with vomiting, unspecified] 01-05-2025 Episodic Other complications of (20 sources) History of pre-eclampsia; Translations: [Supervision of with other poor reproductive or obstetric history, unspecified trimester] Onset: 04-10-2025 04-10-2025 Episodic Other complications of (2 sources) size does not accord with dates; Translations: [Uterine size-date discrepancy, unspecified trimester] 04-26-2025 Episodic Other complications of (6 sources) Heartburn; Translations: [Other specified related conditions, third trimester] 05-10-2025 Episodic Other connective tissue disease (1 source) Pain of bilateral upper limbs; Translations: [Pain in right arm] Episodic Other ear and sense organ disorders (4 sources) Tinnitus, left ear; Translations: [TINNITUS LEFT EAR] Onset: 03-19-2020 Episodic Other female genital disorders (4 sources) Vaginal discharge; Translations: [Other specified noninflammatory disorders of vagina] 01-05-2025 Episodic Other and delivery including normal (20 sources) ; Translations: [Encounter for supervision of [...] of ] 04-10-2025 Episodic Residual codes; unclassified (20 sources) H/O: hypertension; Translations: [Personal history of other complications of , childbirth and the puerperium] Onset: 04-10-2025 04-10-2025 Episodic Residual codes; unclassified (2 sources) Gestation period, 27 weeks; Translations: [27 weeks gestation of ] 04-26-2025 Episodic Residual codes; unclassified (2 sources) Gestation period, 29 weeks; Translations: [29 weeks gestation of ] 05-10-2025 Episodic Residual codes; unclassified (2 sources) Gestation period, 31 weeks; Translations: [31 weeks gestation of ] 05-24-2025 Episodic Residual codes; unclassified (2 sources) Gestation period, 34 weeks; Translations: [34 weeks gestation of ] 06-08-2025 Episodic Residual codes; unclassified (2 sources) Gestation period, 36 weeks; Translations: [36 weeks gestation of ] 06-22-2025 Episodic Skin and subcutaneous tissue infections (2 sources) Local infection of the skin and subcutaneous tissue, unspecified; Translations: [Local infection of the skin and subcutaneous tissue, unspecified] Onset: 08-27-2023 Episodic Unclassified (2 sources) Chronic Care Visit (CCV); Translations: [Chronic Care Visit (CCV)] Onset: 01-16-2023 Unclassified (2 sources) Gynecologic Exam; Translations: [Gynecologic Exam] Onset: 08-25-2022 Unclassified (14 sources) OB Reminders Onset: 04-26-2025 04-26-2025 Past or Other Problems Problem Classification Problem [...] Name Value Interpretation Reference Range Facil ity Urinalysis macro (dipstick) panel (U)on 06-22-2025 Bilirubin, UA Negative Negative - 4(70) +++ mg/dL [facility] Blood, UA Negative Negative - 50 Hernan/mcL [facility] Clarity, UA Clear [facility] Color, UA Yellow [facility] Glucose, UA Negative Negative - 1999(110) ++++ mg/dL [facility] Interpretation and review of laboratory results Abnormal [facility] Ketones, UA Negative Negative - 160(16) ++++ mg/dL [facility] Leukocytes, UA 1+ Negative - 500+++ Deana/mcL [facility] Nitrite, UA Negative Negative - Positive [facility] pH, UA 6.0 5 - 9 [facility] Protein, UA Trace Negative - 1999(20) ++++ mg/dL [facility] Spec Grav, UA 1.015 1 - 1.03 [facility] Urobilinogen, UA 2.0 0.2 - 12 mg/dL [facility] Urinalysis macro (dipstick) panel (U)Ordered By: Akanksha Keys on 06-08-2025 Bilirubin, UA Negative Negative - 4(70) +++ mg/dL [facility] Blood, UA Negative Negative - 50 Hernan/mcL [facility] Clarity, UA Clear [facility] Color, UA Yellow [facility] Glucose, UA Negative Negative - 1999(110) ++++ mg/dL [facility] Interpretation and review of laboratory results Normal [facility] Ketones, UA Negative Negative - 160(16) ++++ mg/dL [facility] Leukocytes, UA Negative Negative - 500+++ Deana/mcL [facility] Nitrite, UA Negative Negative - Positive [facility] pH, UA 6.0 5 - 9 [facility] Protein, UA Negative Negative - 1999(20) ++++ mg/dL [facility] Spec Grav, UA 1.010 1 - 1.03 [facility] Urobilinogen, UA 1.0 0.2 - 12 mg/dL [facility] Urinalysis macro (dipstick) panel (U)on 05-24-2025 Bilirubin, UA Negative Negative - 4(70) +++ mg/dL [facility] Blood, UA Negative Negative - 50 Hernan/mcL [facility] Clarity, UA Clear [facility] Color, UA Yellow [facility] Glucose, UA Negative Negative - 1999(110) ++++ mg/dL [facility] Interpretation and review of laboratory results Abnormal [facility] Ketones, UA Negative Negative - 160(16) ++++ mg/dL [facility] Leukocytes, UA Negative Negative - 500+++ Deana/mcL [facility] Nitrite, UA Negative Negative - Positive [facility] pH, UA 7 5 - 9 [facility] Protein, UA Negative Negative - 2000(20) ++++ mg/dL [facility] Spec Grav, UA 1.01 1 - 1.03 [facility] Urobilinogen, UA 0.2 0.2 - 12 mg/dL [facility] US OB FOLLOW UP TRANSABDOMIN AL APPROACHon 05-10-2025 US OB FOLLOW UP TRANSABDOMINAL APPROACH A single, live intrauterine is present with [...] 1380 grams ( 3 pound, 1 ounces). IMPRESSION: 1. Single, live intrauterine , current [...] Comment on above: Order Comment: US OB SCAN FOR GROWTH Estimated Date of Delivery: 07/20/25 Gestational Age as of 04/26/2025: 27w6d Urinalysis macro (dipstick) panel (U)on 05-10-2025 Bilirubin, UA Negative Negative - 4(70) +++ mg/dL [facility] Blood, UA Negative Negative - 50 Hernan/mcL [facility] Clarity, UA Clear [facility] Color, UA Yellow [facility] Glucose, UA Negative Negative - 1999(110) ++++ mg/dL [facility] Interpretation and review of laboratory results Normal [facility] Ketones, UA Negative Negative - 160(16) ++++ mg/dL [facility] Leukocytes, UA Negative Negative - 500+++ Deana/mcL [facility] Nitrite, UA Negative Negative - Positive [facility] pH, UA 6 5 - 9 [facility] Protein, UA Negative Negative - 1999(20) ++++ mg/dL [facility] Spec Grav, UA 1.01 1 - 1.03 [facility] Urobilinogen, UA 0.2 0.2 - 12 mg/dL [facility] GLUCOSE TOLERANCE 3 HOURon 0 04-28-2025 GLUCOSE TOLERANCE 3 HOUR High mg/dL [facility] Comment on above: GLU FAST 95H (<95) C ol: 04/28/25 0738 GLU 1HR 153 (<180) Col: 04/28/25 0842 GLU 2HR 130 (<155) Col: 04/28/25 0942 GLU 3HR 121 (<140) Col: 04/28/25 1041 Interpretation and review of laboratory results Abnormal [facility] Urinalysis macro (dipstick) panel (U)on 04-26-2025 Bilirubin, UA Negative Negative - 4(70) +++ mg/dL [facility] Blood, UA Negative Negative - 50 Hernan/mcL [facility] Clarity, UA Clear [facility] Color, UA Yellow [facility] Glucose, UA Negative Negative - 1999(110) ++++ mg/dL [facility] Interpretation and review of laboratory results Abnormal [facility] Ketones, UA Negative Negative - 160(16) ++++ mg/dL [facility] Leukocytes, UA Negative Negative - 500+++ Deana/mcL [facility] Nitrite, UA Negative Negative - Positive [facility] pH, UA 6.5 5 - 9 [facility] Protein, UA Negative Negative - 1999(20) ++++ mg/dL [facility] Spec Grav, UA 1.01 1 - 1.03 [facility] Urobilinogen, UA 1.0 0.2 - 12 mg/dL [facility] GLUCOSE 1 HOURon 04-21-2025 Glucose [Mass/Vol] 160 mg/dL High NINF - 13 0 mg/dL [facility] Interpretation and review of laboratory results Abnormal [facility] OB LIMITED 1+ FETUSESon 0 04-10-2025 OB LIMITED 1+ FETUSES FINDINGS: Single viable intrauterine , cephalic presentation, normal cardiac and activity, heart rate 143 bpm. Adequate visualization appropriate for age of the craniofacial region, 4 chamber heart outflow tracts. IMPRESSION: Normal craniofacial and cardiac, outflow tract anatomy TRANSCRIBED BY: ELECTRONICALLY SIGNED BY: Oseas Martines MD Normal Not Available Comment on above: Order Comment: OB INCOMPLETE ANATOMY Estimated Date of Delivery: 07/20/25 Gestational Age as of 03/14/2025: 21w5d Urinalysis macro (dipstick) panel (U)on 04-10-2025 Bilirubin, UA Negative Negative - 4(70) +++ mg/dL [facility] Blood, UA Negative Negative - 50 Hernan/mcL [facility] Clarity, UA Clear [facility] Color, UA Yellow [facility] Glucose, UA Negative Negative - 2000(110) ++++ mg/dL [facility] Interpretation and review of laboratory results Normal [facility] Ketones, UA Negative Negative - 160(16) ++++ mg/dL [facility] Leukocytes, UA Negative Negative - 500+++ Deana/mcL [facility] Nitrite, UA Negative Negative - Positive [facility] pH, UA 6 5 - 9 [facility] Protein, UA Negative Negative - 2000(20) ++++ mg/dL [facility] Spec Grav, UA 1.015 1 - 1.03 [facility] Urobilinogen, UA 1.0 0.2 - 12 mg/dL [facility] AFP, SERUM, OPEN SPINA BIFID Aon 03-04-2025 AFP MOM 0.55 . [facility] AFP VALUE 25.7 ng/mL . [facility] COMMENT: Comment . [facility] Comment on above: Sidra Da Silva , Ph.D., [facility] Director References: Available Upon Request. Multiples Of Median Cutoffs For AFP Elevations Root 2.5 Black 2.8 IDD 2.0 Twins 4.5 Abbreviation Definitions IDD - Insulin Dep Diabetes OSBR - Open Spina Bifida Risk For further inquiries contact [employer] at [phone]. This test was developed and its performance characteristics determined by [employer]. It has not been cleared or approved by the Food and Drug Administration. Performed at: [facility] [address], [place] [id number] Party Director: Basilia Taylor [facility], Phone: [phone] GEST. AGE ON COLLECTION DATE 20.0 . weeks [facility] GESTAT. AGE BASED ON LMP . [facility] Comment on above: Recalculations are n ot recommended when gestational dating by LMP and ultrasound are within 10 days. INSULIN DEP DIABETES No . [facility] INTERPRETATION Comment . [facility] Comment on above: Interpretation: Scre [...] Customer Services to discuss available options. The [employer] recommends amniocentesis be offered to women age 35 and older. [age] [facility] MULTIPLE GESTATION No . [facility] [place] [address] [place] [id number] . [facility] RACE . [facility] RESULTS Report . [facility] TEST RESULTS: Negative . [facility] WEIGHT 206 . lbs [facility] N N LMP [id number] 0 16 N 1 Y 206 N N N N N White/ [facility] US OB 14+ WEEKS ANATOMY [...] II, MD, PHD at 05-Mar-2025 10:03:06 PM [facility] Normal Not Available Comment on above: Order Comment: US OB ANATOMY SINGLE W US OB CERVICAL LENGTH Estimated Date of Delivery: 07/20/25 Gestational Age as of 02/02/2025: 16w0d Urinalysis macro (dipstick) panel (U)on 03-02-2025 Bilirubin, UA Negative Negative - 4(70) +++ mg/dL [facility] Blood, UA Negative Negative - 50 Hernan/mcL [facility] Clarity, UA Clear [facility] Color, UA Yellow [facility] Glucose, UA Negative Negative - 2000(110) ++++ mg/dL [facility] Interpretation and review of laboratory results Abnormal [facility] Ketones, UA Negative Negative - 160(16) ++++ mg/dL [facility] Leukocytes, UA Negative Negative - 500+++ Deana/mcL [facility] Nitrite, UA Negative Negative - Positive [facility] pH, UA 7 5 - 9 [facility] Protein, UA Negative Negative - 1999(20) ++++ mg/dL [facility] Spec Grav, UA 1.015 1 - 1.03 [facility] Urobilinogen, UA 1.0 0.2 - 12 mg/dL [facility] Urinalysis macro (dipstick) panel (U)on 02-02-2025 Bilirubin, UA Negative Negative - 4(70) +++ mg/dL [facility] Blood, UA Negative Negative - 50 Hernan/mcL [facility] Clarity, UA Clear [facility] Color, UA Claudia [facility] Glucose, UA Negative Negative - 1999(110) ++++ mg/dL [facility] Interpretation and review of laboratory results Abnormal [facility] Ketones, UA Negative Negative - 160(16) ++++ mg/dL [facility] Leukocytes, UA Negative Negative - 500+++ Deana/mcL [facility] Nitrite, UA Negative Negative - Positive [facility] pH, UA 6.5 5 - 9 [facility] Protein, UA Positive Negative - 1999(20) ++++ mg/dL [facility] Comment on above: 30 Spec Grav, UA 1.02 1 - 1.03 [facility] Urobilinogen, UA 0.2 0.2 - 12 mg/dL [facility] IGP,APTIMA HPV,AGE GDLNon AGE GDLN ACOG TESTING Note . [facility] Comment on above: TESTS RESULT FLAG UN ITS REF RANGE LAB Clinician Provided Cytology Information Source.............Cervix;Endocervix No. of containers..01 ThinPrep Vial Age Algo ACOG Amparo... FLAG LEGEND: L-Low Normal,H-High Normal,LL-Alert Low,HH-Alert High <-Panic Low,>-Panic High,A-Abnormal,AA-Critical Abnormal Performed at: 01 =[address] [place] [address] Analia Valencia MD, IGP, RFX APTIMA HPV ASCU Note . [facility] Comment on above: TESTS RESULT FLAG UN ITS REF RANGE LAB DIAGNOSIS: 02 NEGATIVE FOR INTRAEPITHELIAL LESION OR MALIGNANCY. Specimen adequacy: 02 Satisfactory for evaluation. No endocervical component is identified. Performed by: Oz Gonzalez, Rn Care Manager (ASCP) . 02 Note: Note 02 The Pap [...] <-Panic Low,>-Panic High,A-Abnormal,AA-Critical Abnormal Performed at: [address] [address] Analia Valencia MD, Performed at: =[facility] [address] [id number] Party Director: Analia Valencia MD, Phone: [phone] Performed at: [facility] [address] [id number] Party Director: Analia Valencia MD, Phone: [phone] BRUSH-SPATULA CERVIX ENDOCERVIX [facility] RECURRENT VAGINITIS (HTRX)on 01-06-2025 ATOPOBIUM VAGINAE 0 [facility] ATOPOBIUM VAGINAE Not detected [facility] BVAB 2,3 (BACTERIAL VAGINOSIS ASSOCIATED BACTERIA 2, 3); MOBILUNCUS SPP 0 [facility] BVAB 2,3 (BACTERIAL VAGINOSIS ASSOCIATED BACTERIA 2, 3); MOBILUNCUS SPP Not detected [facility] MARTHA ALBICANS, PARAPSILOSIS, TROPICALIS 0 [facility] MARTHA ALBICANS, PARAPSILOSIS, TROPICALIS Not detected [facility] MARTHA GLABRATA 0 [facility] MARTHA GLABRATA Not detected [facility] MARTHA KRUSEI 0 [facility] MARTHA KRUSEI Not detected [facility] CHLAMYDIA TRACHOMATIS 0 [facility] CHLAMYDIA TRACHOMATIS Not detected N [facility] GARDNERELLA VAGINALIS 0 [facility] GARDNERELLA VAGINALIS Not detected N [facility] MEGASPHAERA (TYPES 1, 2) 0 [facility] MEGASPHAERA (TYPES 1, 2) Not detected [facility] MYCOPLASMA GENITALIUM 0 [facility] MYCOPLASMA GENITALIUM Not detected N [facility] NEISSERIA GONORRHOEAE 0 [facility] NEISSERIA GONORRHOEAE Not detected N [facility] TRICHOMONAS VAGINALIS 0 [facility] TRICHOMONAS VAGINALIS Not detected N [facility] Urinalysis macro (dipstick) panel (U)on 01-05-2025 Bilirubin, UA Negative Negative - 4(70) +++ mg/dL [facility] Blood, UA Negative Negative - 50 Hernan/mcL [facility] Clarity, UA Clear [facility] Color, UA Yellow [facility] Glucose, UA Negative Negative - 1999(110) ++++ mg/dL [facility] Interpretation and review of laboratory results Abnormal [facility] Ketones, UA Negative Negative - 160(16) ++++ mg/dL [facility] Leukocytes, UA Negative Negative - 500+++ Deana/mcL [facility] Nitrite, UA Negative Negative - Positive [facility] pH, UA 6.5 5 - 9 [facility] Protein, UA Negative Negative - 1999(20) ++++ mg/dL [facility] Spec Grav, UA 1.025 1 - 1.03 [facility] Urobilinogen, UA 1.0 0.2 - 12 mg/dL [facility] ALL TYPE AND SCREENon 2024 ABO and Rh group Nom (Bld) Blood group O Rh(D) positive [facility] ( test) Ql (U)o n 12-22-2024 Interpretation and review of laboratory results Normal [facility] Preg Test, Ur Positive Negative [facility] MLR HEMOGLOBIN A1Con 025 Glucose [Mass/Vol] 100 mg/dL [facility] HbA1c (Bld) [Mass fraction] 5.1 % 4.5 - 6.2 % [facility] Comment on above: ADA RECOMMENDED LIMI T 4.0 - 6.0 ADA THERAPEUTIC TARGET < 7.0 ACTION SUGGESTED > 7.0 [facility][note 3] US OB TRANSVAGINALon 025 US OB TRANSVAGINAL [...] II, MD, PHD at 24-Dec-2024 06:51:11 PM [facility] Normal Not Available Comment on above: Order Comment: US OB TRANSVAGINAL No LMP recorded. Urinalysis macro (dipstick) panel (U)on 12-22-2024 Bilirubin, UA Negative Negative - 4(70) +++ mg/dL [facility] Blood, UA Negative Negative - 50 Hernan/mcL [facility] Clarity, UA Clear [facility] Color, UA Yellow [facility] Glucose, UA Negative Negative - 2000(110) ++++ mg/dL [facility] Interpretation and review of laboratory results Normal [facility] Ketones, UA Negative Negative - 160(16) ++++ mg/dL [facility] Leukocytes, UA Negative Negative - 500+++ Deana/mcL [facility] Nitrite, UA Negative Negative - Positive [facility] pH, UA 6 5 - 9 [facility] Protein, UA Negative Negative - 2000(20) ++++ mg/dL [facility] Spec Grav, UA 1.025 1 - 1.03 [facility] Urobilinogen, UA 1.0 0.2 - 12 mg/dL [facility] Disch Summon 01-23-2024 Disch Summ 28 YO P1 WHO UNDERWENT FAVD WITH UNREMARKABLE COURSE AUTHENTICATED BY FRANKIE ARTIS, ON 01/23/2024 05:56:57 Normal [facility] HEMOGLOBIN AND HEMATOCRITon 01-23-2024 Hematocrit (Bld) [Volume fraction] 27.7 % Low 36.0-46.0 [facility] Comment on above: Performed By: #### 4 8052 #### [facility] [address] [place] [address] 15797 Donavan Shafer M.D. [id number] Hemoglobin (Bld) [Mass/Vol] 9.0 g/dL Low 12.0-16.0 [facility] Comment on above: Performed By: #### 4 8052 #### [facility] [address] [place], [place] [id number] Donavan Shafer M.D. [id number] Hemoglobin and Hematocrit [facility] (Bld)on 01-23-2024 Hematocrit (Bld) [Volume fraction] 27.7 % Low 36.0 - 46.0 % [facility] Hemoglobin (Bld) [Mass/Vol] 9.0 g/dL Low 12.0 - 16.0 g/dL [facility] Interpretation and review of laboratory results Abnormal [facility] CBCon 01-22-2024 AUTO NRBC 0.0 % Normal [facility] Comment on above: Performed By: #### 4 6386 #### [facility] [address] [place] [address] 31794 Donavan Shafer M.D. [id number] AUTO NRBC ABS COUNT 0.00 K/mcL Normal 0.00-0.00 [facility] Comment on above: Performed By: #### 4 0730 #### [facility] [address] [place], [place] [id number] Donavan Shafer M.D. [id number] Erythrocyte distribution width (RBC) [Ratio] 13.5 % Normal 11.6-14.8 [facility] Comment on above: Performed By: #### 4 9132 #### [facility] [address] [place] [address] 71509 Donavan Shafer M.D. [id number] Hematocrit (Bld) [Volume fraction] 29.7 % Low 36.0-46.0 [facility] Comment on above: Performed By: #### 4 4133 #### [facility] [address] [place], [place] [address] Donavan Shafer M.D. [id number] Hemoglobin (Bld) [Mass/Vol] 10.0 g/dL Low 12.0-16.0 [facility] Comment on above: Performed By: #### 4 6312 #### [facility] [address] [place] [address] Donavan Shafer M.D. [id number] MCH (RBC) [Entitic mass] 31.4 pg Normal 26.0-34.0 [facility] Comment on above: Performed By: #### 4 7105 #### [facility] [address] [place] [address] Donavan Shafer M.D. [id number] MCV (RBC) [Entitic vol] 93.4 fL Normal 80.0-100.0 [facility] Comment on above: Performed By: #### 4 8323 #### [facility] [address] [place], [place] [address] Donavan Shafer M.D. [id number] MEAN CORPUSCULAR HEMOGLOBIN CONC 33.7 g/dL Normal 31.0-37.0 [facility] Comment on above: Performed By: #### 4 6022 #### [facility] [address] [place], [place] [address] Donavan Shafer M.D. [id number] Platelet mean volume (Bld) [Entitic vol] 12.6 fL High 9.4-12.4 [facility] Comment on above: Performed By: #### 4 5746 #### [facility] [address] [place], [place] [address] Donavan Shafer M.D. [id number] Platelets (Bld) [#/Vol] 101 10*3/uL Low 150-400 [facility] Comment on above: Performed By: #### 4 4922 #### [facility] [address] [place] [address] 05541 Donavan Shafer M.D. [id number] RBC (Bld) [#/Vol] 3.18 10*6/uL Low 4.00-5.20 [facility] Comment on above: Performed By: #### 4 6391 #### [facility] [address] [place] [address] 82598 Donavan Shafer M.D. [id number] WBC (Bld) [#/Vol] 20.43 10*3/uL High 4.50-11.00 [facility] Comment on above: Performed By: #### 4 6391 #### [facility] [address] [place] [address] 14345 Donavan Shafer M.D. [id number] CBC panel Auto (Bld)on 01-21 Erythrocyte distribution width (RBC) [Entitic vol] 13.5 % 11.6 - 14.8 % [facility] Hematocrit (Bld) [Volume fraction] 29.7 % Low 36.0 - 46.0 % [facility] Hemoglobin (Bld) [Mass/Vol] 10.0 g/dL Low 12.0 - 16.0 g/dL [facility] Interpretation and review of laboratory results Abnormal [facility] MCH (RBC) [Entitic mass] 31.4 pg 26.0 - 34.0 pg [facility] MCHC (RBC) [Mass/Vol] 33.7 g/dL 31.0 - 37.0 g/dL [facility] MCV (RBC) [Entitic vol] 93.4 fL 80.0 - 100.0 fL [facility] Nucleated RBC (Bld) [#/Vol] 0.00 10*3/uL [facility] Nucleated RBC/100 WBC (Bld) [Ratio] 0.0 % [facility] Platelet mean volume (Bld) [Entitic vol] 12.6 fL High 9.4 - 12.4 fL [facility] Platelets (Bld) [#/Vol] 101 10*3/uL Low [facility] RBC (Bld) [#/Vol] 3.18 10*6/uL Low [facility] WBC (Bld) [#/Vol] 20.43 10*3/uL [facility] APTTon 01-21-2024 aPTT Coag (Bld) [Time] 28 s [facility] aPTT Coag (Bld) [Time] 28 s Normal 23-34 Ri [facility] Comment on above: Order Comment: Thera peutic range for APTT's is 68 - 104 seconds Performed By: #### 4 8052 #### [facility] [address] [place], [place] [address] Donavan Shafer M.D. [id number] CBC Auto Differentialon 01-05 Basophils (Bld) [#/Vol] 0.03 10*3/uL [facility] Basophils/100 WBC (Bld) 0.3 % [facility] Eosinophils (Bld) [#/Vol] 0.04 10*3/uL [facility] Eosinophils/100 WBC (Bld) 0.4 % [facility] Erythrocyte distribution width (RBC) [Entitic vol] 13.9 % 11.6 - 14.8 % [facility] Hematocrit (Bld) [Volume fraction] 33.6 % Low 36.0 - 46.0 % [facility] Hemoglobin (Bld) [Mass/Vol] 11.4 g/dL Low 12.0 - 16.0 g/dL [facility] Immature granulocytes (Bld) [#/Vol] 0.06 10*3/uL [facility] Immature granulocytes/100 WBC (Bld) 0.60 % [facility] Comment on above: The IG parameter is the percentage of metamyelocytes, myelocytes and promyelocytes. An immature granulocyte count (IG) of 1% or more suggests the possibility of infection, an IG count of 3% is very likely related to an infection. Interpretation and review of laboratory results Abnormal [facility] Lymphocytes (Bld) [#/Vol] 1.00 10*3/uL [facility] Lymphocytes/100 WBC (Bld) 9.3 % [facility] MCH (RBC) [Entitic mass] 31.6 pg 26.0 - 34.0 pg [facility] MCHC (RBC) [Mass/Vol] 33.9 g/dL 31.0 - 37.0 g/dL [facility] MCV (RBC) [Entitic vol] 93.1 fL 80.0 - 100.0 fL [facility] Monocytes (Bld) [#/Vol] 1.11 10*3/uL High [facility] Monocytes/100 WBC (Bld) 10.3 % [facility] Neutrophils (Bld) [#/Vol] 8.52 10*3/uL High [facility] Neutrophils/100 WBC (Bld) 79.1 % [facility] Nucleated RBC (Bld) [#/Vol] 0.00 10*3/uL [facility] Nucleated RBC/100 WBC (Bld) [Ratio] 0.0 % [facility] Platelet mean volume (Bld) [Entitic vol] 12.3 fL 9.4 - 12.4 fL [facility] Platelets (Bld) [#/Vol] 128 10*3/uL Low [facility] RBC (Bld) [#/Vol] 3.61 10*6/uL [facility] WBC (Bld) [#/Vol] 10.76 10*3/uL [facility] CBC WITH AUTO DIFFERENTIALon 01-21-2024 AUTO NRBC 0.0 % Normal [facility] Comment on above: Performed By: #### 4 6346 #### [facility] [address] [place], [place] [address] Donavan Shafer M.D. [id number] AUTO NRBC ABS COUNT 0.00 K/mcL Normal 0.00-0.00 [facility] Comment on above: Performed By: #### 4 6308 #### [facility] [address] [place], [place] [address] Donavan Shafer M.D. [id number] BASOPHILS ABSOLUTE COUNT 0.03 K/mcL Normal 0.00-0.30 [facility] Comment on above: Performed By: #### 4 6377 #### [facility] [address] [place], [place] [address] Donavan Shafer M.D. [id number] Basophils/100 WBC (Bld) 0.3 % Normal [facility] Comment on above: Performed By: #### 4 6326 #### [facility] [address] [place], [place] [address] Donavan Shafer M.D. [id number] Eosinophils (Bld) [#/Vol] 0.04 10*3/uL Normal 0.00-0.50 [facility] Comment on above: Performed By: #### 4 6944 #### [facility] [address] [place] [address] Donavan Shafer M.D. [id number] Eosinophils/100 WBC (Bld) 0.4 % Normal [facility] Comment on above: Performed By: #### 4 0054 #### [facility] [address] [place] [address] Donavan Shafer M.D. [id number] Erythrocyte distribution width (RBC) [Ratio] 13.9 % Normal 11.6-14.8 [facility] Comment on above: Performed By: #### 4 7305 #### [facility] [address] [place] [address] Donavan Shafer M.D. [id number] Hematocrit (Bld) [Volume fraction] 33.6 % Low 36.0-46.0 [facility] Comment on above: Performed By: #### 4 9956 #### [facility] [address] [place] [address] Donavan Shafer M.D. [id number] Hemoglobin (Bld) [Mass/Vol] 11.4 g/dL Low 12.0-16.0 [facility] Comment on above: Performed By: #### 4 6330 #### [facility] [address] [place] [address] Donavan Shafer M.D. [id number] IG ABSOLUTE 0.06 K/mcL Normal 0.00-0.30 [facility] Comment on above: Performed By: #### 4 9798 #### [facility] [address] [place] [address] Donavan Shafer M.D. [id number] IG PERCENT 0.60 % Normal [facility] Comment on above: Result Comment: The IG parameter is the percentage of metamyelocytes, myelocytes and promyelocytes. An immature granulocyte count (IG) of 1% or more suggests the possibility of infection, an IG count of 3% is very likely related to an infection. Performed By: #### 4 6307 #### [facility] [address] [place] [address] Donavan Shafer M.D. [id number] Lymphocytes (Bld) [#/Vol] 1.00 10*3/uL Normal 0.90-4.00 [facility] Comment on above: Performed By: #### 4 6364 #### [facility] [address] [place] [address] Donavan Shafer M.D. [id number] Lymphocytes/100 WBC (Bld) 9.3 % Normal [facility] Comment on above: Performed By: #### 4 5929 #### [facility] [address] [place], [place] [address] Donavan Shafer M.D. [id number] MCH (RBC) [Entitic mass] 31.6 pg Normal 26.0-34.0 [facility] Comment on above: Performed By: #### 4 0624 #### [facility] [address] [place], [place] [address] Donavan Shafer M.D. [id number] MCV (RBC) [Entitic vol] 93.1 fL Normal 80.0-100.0 [facility] Comment on above: Performed By: #### 4 5539 #### [facility] [address] [place], [place] [address] Donavan Shafer M.D. [id number] MEAN CORPUSCULAR HEMOGLOBIN CONC 33.9 g/dL Normal 31.0-37.0 [facility] Comment on above: Performed By: #### 4 8771 #### [facility] [address] [place], [place] [address] Doanvan Shafer M.D. [id number] Monocytes (Bld) [#/Vol] 1.11 10*3/uL High 0.30-0.90 [facility] Comment on above: Performed By: #### 4 6391 #### [facility] [address] [place] [address] Donavan Shafer M.D. [id number] Monocytes/100 WBC (Bld) 10.3 % Normal [facility] Comment on above: Performed By: #### 4 6391 #### [facility] [address] [place] [address] Donavan Shafer M.D. [id number] NEUTROPHILS ABSOLUTE COUNT 8.52 K/mcL High 1.70-7.00 [facility] Comment on above: Performed By: #### 4 6391 #### [facility] [address] [place] [address] Donavan Shafer M.D. [id number] Neutrophils/100 WBC (Bld) 79.1 % Normal [facility] Comment on above: Performed By: #### 4 6391 #### [facility] [address] [place], [place] [address] Donavan Shafer M.D. [id number] Platelet mean volume (Bld) [Entitic vol] 12.3 fL Normal 9.4-12.4 [facility] Comment on above: Performed By: #### 4 6391 #### [facility] [address] [place], [place] [address] Donavan Shafer M.D. [id number] Platelets (Bld) [#/Vol] 128 10*3/uL Low 150-400 [facility] Comment on above: Performed By: #### 4 6334 #### [facility] [address] [place] [address] Donavan Shafer M.D. [id number] RBC (Bld) [#/Vol] 3.61 10*6/uL Low 4.00-5.20 [facility] Comment on above: Performed By: #### 4 6391 #### [facility] [address] [place] [address] 58502 Donavan Shafer M.D. [id number] WBC (Bld) [#/Vol] 10.76 10*3/uL Normal 4.50-11.00 [facility] Comment on above: Performed By: #### 4 6391 #### [facility] [address] [place] [address] 19247 Donavan Shafer M.D. [id number] FIBRINOGENon 01-21-2024 FIBRINOGEN LEVEL 541 mg/dL High 224-483 [facility] Comment on above: Performed By: #### 4 8052 #### [facility] [address] [place], [place] [address] Donavan Shafer M.D. [id number] FibrinogenOrdered By: Adelaida Gaspar on 01-21-2024 Fibrinogen Coag (PPP) [Mass/Vol] 541 mg/dL High 224 - 483 mg/dL [facility] Fibrinogen Coag (PPP) [Mass/ Vol]Ordered By: Adelaida Gaspar on 01-21-2024 Interpretation and review of laboratory results Abnormal [facility] INR Coag (PPP) [Relative [place] e]on 01-21-2024 Interpretation and review of laboratory results Normal [facility] PT Coag (PPP) [Time] 13.0 s [facility] During the induction phase of oral anticoagulation, the INR may not reflect the anticoagulation status of the patient. Therapeutic ranges for INR's are: Most clinical situations: INR 2.0-3.0 Mechanical Prosthetic Valve: INR 2.5-3.5 Critical: INR >5.0 [facility] PT/INRon 01-21-2024 INR Coag (PPP) [Relative time] 1.0 {INR} 0.8 - 1.1 [facility] INR Coag (PPP) [Relative time] 1.0 {INR} Normal 0.8-1.1 [facility] Comment on above: Order Comment: Stella bajwa the induction phase of oral anticoagulation, the INR may not reflect the anticoagulation status of the patient. Therapeutic ranges for INR's are:Most clinical situations: INR 2.0-3.0Mechanical Prosthetic Valve: INR 2.5-3.5Critical: INR >5.0 Performed By: #### 4 8052 #### [facility] [address] [place] [address] 50669 Donavan Shafer M.D. [id number] PT Coag (PPP) [Time] 13.0 s Normal 11.8-14.3 [facility] Comment on above: Order Comment: Stella bajwa the induction phase of oral anticoagulation, the INR may not reflect the anticoagulation status of the patient. Therapeutic ranges for INR's are:Most clinical situations: INR 2.0-3.0Mechanical Prosthetic Valve: INR 2.5-3.5Critical: INR >5.0 Performed By: #### 4 8052 #### [facility] [address] [place] [address] 85350 Donavan Shafer M.D. [id number] aPTT Coag (Bld) [Time]on Interpretation and review of laboratory results Normal [facility] Therapeutic range for APTT's is 68 - 104 seconds [facility] ABORH VERIFICATIONon 024 ABO and Rh group Nom (Bld) Blood group O Rh(D) positive Normal [facility] Comment on above: Performed By: #### 4 6391 #### [facility] [address] [place] [address] 01245 Donavan Shafer M.D. [id number] ABO and Rh group Nom (Bld) ABO/Rh Verification Normal [facility] Comment on above: Result Comment: Melita ent's ABO/Rh is verified. Performed By: #### 4 6391 #### [facility] [address] [place], [place] [address] Donavan Shafer M.D. [id number] ABOR Verificationon 024 ABO and Rh group Nom (Bld) Blood group O Rh(D) positive [facility] ABO and Rh group Nom (Bld) ABO/Rh Verification [facility] Comment on above: Patient's ABO/Rh is verified. [facility] APTTon 01-20-2024 aPTT Coag (Bld) [Time] 27 s [facility] aPTT Coag (Bld) [Time] 27 s Normal 23-34 Ri [facility] Comment on above: Order Comment: Stella bajwa the induction phase of oral anticoagulation, the INR may not reflect the anticoagulation status of the patient. Therapeutic ranges for INR's are: Most clinical situations: INR 2.0-3.0 Mechanical Prosthetic Valve: INR 2.5-3.5 Critical: INR >5.0 Performed By: #### 4 6391 #### [facility] [address] [place] [address] 22789 Donavan Shafer M.D. [id number] Blood type and Indirect anti body screen panel (Bld)on 01-20-2024 ABO and Rh group Nom (Bld) Blood group O Rh(D) positive [facility] Blood group antibody screen Ql Negative [facility] Specimen Expires 01/23/2024 23:59 EST [facility] CBCon 01-20-2024 AUTO NRBC 0.0 % Normal [facility] Comment on above: Performed By: #### 4 5218 #### [facility] [address] [place] [address] 73184 Donavan Shafer M.D. [id number] AUTO NRBC ABS COUNT 0.00 K/mcL Normal 0.00-0.00 [facility] Comment on above: Performed By: #### 4 5218 #### [facility] [address] [place] [address] 67[address] Donavan Shafer M.D. [id number] Erythrocyte distribution width (RBC) [Ratio] 14.0 % Normal 11.6-14.8 [facility] Comment on above: Performed By: #### 4 5218 #### [facility] [address] [place] [address] 21818 Donavan Shafer M.D. [id number] Hematocrit (Bld) [Volume fraction] 36.3 % Normal 36.0-46.0 [facility] Comment on above: Performed By: #### 4 5218 #### [facility] [address] [place], [place] [address] Donavan Shafer M.D. [id number] Hemoglobin (Bld) [Mass/Vol] 12.2 g/dL Normal 12.0-16.0 [facility] Comment on above: Performed By: #### 4 5218 #### [facility] [address] [place] [address] Donavan Shafer M.D. [id number] MCH (RBC) [Entitic mass] 31.3 pg Normal 26.0-34.0 [facility] Comment on above: Performed By: #### 4 5218 #### [facility] [address] [place], [place] [address] Donavan Shafer M.D. [id number] MCV (RBC) [Entitic vol] 93.1 fL Normal 80.0-100.0 [facility] Comment on above: Performed By: #### 4 5218 #### [facility] [address] [place], [place] [address] Donavan Shafer M.D. [id number] MEAN CORPUSCULAR HEMOGLOBIN CONC 33.6 g/dL Normal 31.0-37.0 [facility] Comment on above: Performed By: #### 4 5218 #### [facility] [address] [place], [place] [address] Donavan Shafer M.D. [id number] Platelet mean volume (Bld) [Entitic vol] 12.1 fL Normal 9.4-12.4 [facility] Comment on above: Performed By: #### 4 9418 #### [facility] [address] [place] [address]643 Donavan Shafer M.D. [id number] Platelets (Bld) [#/Vol] 129 10*3/uL Low 150-400 [facility] Comment on above: Performed By: #### 4 5218 #### [facility] [address] [place] [address] 37857 Donavan Shafer M.D. [id number] RBC (Bld) [#/Vol] 3.90 10*6/uL Low 4.00-5.20 [facility] Comment on above: Performed By: #### 4 5218 #### [facility] [address] [place] [address] 77[address] Donavan Shafer M.D. [id number] WBC (Bld) [#/Vol] 10.05 10*3/uL Normal 4.50-11.00 [facility] Comment on above: Performed By: #### 4 5218 #### [facility] [address] [place] [address] 432[address] Donavan Shafer M.D. [id number] CBC panel Auto (Bld)on 01-19 Erythrocyte distribution width (RBC) [Entitic vol] 14.0 % 11.6 - 14.8 % [facility] Hematocrit (Bld) [Volume fraction] 36.3 % 36.0 - 46.0 % [facility] Hemoglobin (Bld) [Mass/Vol] 12.2 g/dL 12.0 - 16.0 g/dL [facility] Interpretation and review of laboratory results Abnormal [facility] MCH (RBC) [Entitic mass] 31.3 pg 26.0 - 34.0 pg [facility] MCHC (RBC) [Mass/Vol] 33.6 g/dL 31.0 - 37.0 g/dL [facility] MCV (RBC) [Entitic vol] 93.1 fL 80.0 - 100.0 fL [facility] Nucleated RBC (Bld) [#/Vol] 0.00 10*3/uL [facility] Nucleated RBC/100 WBC (Bld) [Ratio] 0.0 % [facility] Platelet mean volume (Bld) [Entitic vol] 12.1 fL 9.4 - 12.4 fL [facility] Platelets (Bld) [#/Vol] 129 10*3/uL Low [facility] RBC (Bld) [#/Vol] 3.90 10*6/uL Low [facility] WBC (Bld) [#/Vol] 10.05 10*3/uL [facility] COMPREHENSIVE METABOLIC PANE Gian 01-20-2024 Albumin [Mass/Vol] 3.5 g/dL Normal 3.2-5.2 [facility] Comment on above: Order Comment: [facility] has implemented the eGFR calculation approach that does not have a coefficient for race that conforms to the NKF-ASN Task Force Recommendations. Performed By: #### 4 6126 #### [facility] [address] [place], [place] [id number] Donavan Shafer M.D. [id number] ALP [Catalytic activity/Vol] 163 U/L High 40-140 [facility] Comment on above: Order Comment: [facility] has implemented the eGFR calculation approach that does not have a coefficient for race that conforms to the NKF-ASN Task Force Recommendations. Performed By: #### 4 [id number] #### [facility] [address] [place], [place] [id number] Donavan Shafer M.D. [id number] ALT [Catalytic activity/Vol] 14 U/L Normal 0-35 U/L [facility] Comment on above: Order Comment: [facility] has implemented the eGFR calculation approach that does not have a coefficient for race that conforms to the NKF-ASN Task Force Recommendations. Performed By: #### 4 6126 #### [facility] [address] [place], [place] [id number] Donavan Shafer M.D. [id number] Anion gap [Moles/Vol] 16 mmol/L Normal 10-20 [facility] Comment on above: Order Comment: [facility] has implemented the eGFR calculation approach that does not have a coefficient for race that conforms to the NKF-ASN Task Force Recommendations. Performed By: #### 4 6126 #### [facility] [address] [place] [address] 18076 Donavan Shafer M.D. [id number] AST [Catalytic activity/Vol] 18 U/L Normal 0-35 U/L [facility] Comment on above: Order Comment: [facility] has implemented the eGFR calculation approach that does not have a coefficient for race that conforms to the NKF-ASN Task Force Recommendations. Performed By: #### 4 [id number] #### [facility] [address] [place], [place] [address] Donavan Shafer M.D. [id number] Bilirubin [Mass/Vol] 0.3 mg/dL Normal 0.0-1.3 [facility] Comment on above: Order Comment: [facility] has implemented the eGFR calculation approach that does not have a coefficient for race that conforms to the NKF-ASN Task Force Recommendations. Performed By: #### 4 [id number] #### [facility] [address] [place] [address] 585[address] Donavan Shafer M.D. [id number] Calcium [Mass/Vol] 9.2 mg/dL Normal 8.4-10.2 [facility] Comment on above: Order Comment: [facility] has implemented the eGFR calculation approach that does not have a coefficient for race that conforms to the NKF-ASN Task Force Recommendations. Performed By: #### 4 6126 #### [facility] [address] [place] [address] 700[address] Donavan Shafer M.D. [id number] Chloride [Moles/Vol] 107 mmol/L Normal 98-108 [facility] Comment on above: Order Comment: [facility] has implemented the eGFR calculation approach that does not have a coefficient for race that conforms to the NKF-ASN Task Force Recommendations. Performed By: #### 4 6126 #### [facility] [address] [place] [address] 36[address] Donavan Shafer M.D. [id number] Creatinine [Mass/Vol] 0.54 mg/dL Normal 0.40-1.10 [facility] Comment on above: Order Comment: [facility] has implemented the eGFR calculation approach that does not have a coefficient for race that conforms to the NKF-ASN Task Force Recommendations. Performed By: #### 4 6126 #### [facility] [address] [place] [address] 50866 Donavan Shafer M.D. [id number] EGFR 130 mL/min/1.73 m2 Normal >=60 [facility] Comment on above: Order Comment: [facility] has implemented the eGFR calculation approach that does not have a coefficient for race that conforms to the NKF-ASN Task Force Recommendations. Result Comment: Subha mated GFR was calculated using the 2020 CKD-EPI creatinine equation. Performed By: #### 4 6126 #### [facility] [address] [place] [address] 436[address] Donavan Shafer M.D. [id number] Glucose [Mass/Vol] 84 mg/dL Normal 65-99 [facility] Comment on above: Order Comment: [facility] has implemented the eGFR calculation approach that does not have a coefficient for race that conforms to the NKF-ASN Task Force Recommendations. Performed By: #### 4 6126 #### [facility] [address] [place] [address] 86534 Donavan Shafer M.D. [id number] HCO3 (Bld) [Moles/Vol] 19 mmol/L Low 21-32 Ri [facility] Comment on above: Order Comment: [facility] has implemented the eGFR calculation approach that does not have a coefficient for race that conforms to the NKF-ASN Task Force Recommendations. Performed By: #### 4 6126 #### [facility] [address] [place], [place] [address] Donavan Shafer M.D. [id number] Potassium [Moles/Vol] 4.1 mmol/L Normal 3.5-5.1 [facility] Comment on above: Order Comment: [facility] has implemented the eGFR calculation approach that does not have a coefficient for race that conforms to the NKF-ASN Task Force Recommendations. Performed By: #### 4 6126 #### [facility] [address] [place] [address] 28967 Donavan Shafer M.D. [id number] Protein [Mass/Vol] 6.6 g/dL Normal 6.0-8.0 [facility] Comment on above: Order Comment: [facility] has implemented the eGFR calculation approach that does not have a coefficient for race that conforms to the NKF-ASN Task Force Recommendations. Performed By: #### 4 6126 #### [facility] [address] [place] [address] 49[address] Donavan Shafer M.D. [id number] Sodium [Moles/Vol] 138 mmol/L Normal 135-145 [facility] Comment on above: Order Comment: [facility] has implemented the eGFR calculation approach that does not have a coefficient for race that conforms to the NKF-ASN Task Force Recommendations. Performed By: #### 4 6126 #### [facility] [address] [place] [address] 23128 Donavan Shafer M.D. [id number] Urea nitrogen [Mass/Vol] 8 mg/dL Normal 8-25 [facility] Comment on above: Order Comment: [facility] has implemented the eGFR calculation approach that does not have a coefficient for race that conforms to the NKF-ASN Task Force Recommendations. Performed By: #### 4 6126 #### [facility] [address] [place] [address] 75148 Donavan Shafer M.D. [id number] Urea nitrogen/Creatinine [Mass ratio] 14.8 mg/mg Normal 10.0-20.0 [facility] Comment on above: Order Comment: [facility] has implemented the eGFR calculation approach that does not have a coefficient for race that conforms to the NKF-ASN Task Force Recommendations. Performed By: #### 4 6126 #### [facility] [address] [address] Donavan Shafer M.D. [id number] Comprehensive metabolic 2000 panelon 01-20-2024 Albumin [Mass/Vol] 3.5 g/dL 3.2 - 5.2 g/dL [facility] ALP [Catalytic activity/Vol] 163 U/L High 40 - 140 U/L [facility] ALT [Catalytic activity/Vol] 14 U/L 0-35 U/L [facility] Anion gap [Moles/Vol] 16 mmol/L 10 - 20 mmol/L [facility] AST [Catalytic activity/Vol] 18 U/L 0-35 U/L [facility] Bilirubin [Mass/Vol] 0.3 mg/dL 0.0 - 1.3 mg/dL [facility] Calcium [Mass/Vol] 9.2 mg/dL 8.4 - 10. 2 mg/dL [facility] Chloride [Moles/Vol] 107 mmol/L 98 - 108 mmol/L [facility] Creatinine [Mass/Vol] 0.54 mg/dL 0.40 - 1.10 mg/dL [facility] GFR/1.73 sq M.predicted CKD-EPI (S/P/Bld) [Vol rate/Area] 130 - PINF [facility] Comment on above: Estimated GFR was ca lculated using the 2020 CKD-EPI creatinine equation. Glucose [Mass/Vol] 84 mg/dL 65 - 99 mg/dL [facility] HCO3 [Moles/Vol] 19 mmol/L Low 21 - 32 mmol/L [facility] Interpretation and review of laboratory results Abnormal [facility] Potassium [Moles/Vol] 4.1 mmol/L 3.5 - 5.1 mmol/L [facility] Protein [Mass/Vol] 6.6 g/dL 6.0 - 8.0 g/dL [facility] Sodium [Moles/Vol] 138 mmol/L 135 - 145 mmol/L [facility] Urea nitrogen [Mass/Vol] 8 mg/dL 8 - 25 mg/dL [facility] Urea nitrogen/Creatinine [Mass ratio] 14.8 mg/mg 10.0 - 20.0 [facility] has implemented the eGFR calculation approach that does not have a coefficient for race that conforms to the NKF-ASN Task Force Recommendations. [facility] FIBRINOGENon 01-20-2024 FIBRINOGEN LEVEL 573 mg/dL High 224-483 [facility] Comment on above: Performed By: #### 4 8052 #### [facility] [address] [place] [address] Donavan Shafer M.D. [id number] FibrinogenOrdered By: Ami Reagan on 01-20-2024 Fibrinogen Coag (PPP) [Mass/Vol] 573 mg/dL High 224 - 483 mg/dL [facility] Fibrinogen Coag (PPP) [Mass/ Vol]Ordered By: Uziel Reagan on 01-20-2024 Interpretation and review of laboratory results Abnormal [facility] HEPATITIS C ANTIBODYon 01-19 HEPATITIS C ANTIBODY Negative Normal Negative [facility] Comment on above: Order Comment: Test performed using Dorie KERRI immunoassay system Performed By: #### 4 5878 #### [facility] [address] [place] [address] 96246 Donavan Shafer M.D. [id number] Hepatitis C Antibodyon 01-19 HCV Ab Ql (S) Negative Negative [facility] Interpretation and review of laboratory results Normal [facility] Test performed using Dorie KERRI immunoassay system [facility] INR Coag (PPP) [Relative virgin[place] e]on 01-20-2024 PT Coag (PPP) [Time] 13.3 s [facility] During the induction phase of oral anticoagulation, the INR may not reflect the anticoagulation status of the patient. Therapeutic ranges for INR's are: Most clinical situations: INR 2.0-3.0 Mechanical Prosthetic Valve: INR 2.5-3.5 Critical: INR >5.0 [facility] LDHon 01-20-2024 LDH Lactate to pyruvate reaction [Catalytic activity/Vol] 167 U/L 100 - 250 U/L [facility] LDH [Catalytic activity/Vol] 167 U/L Normal 100-250 [facility] Comment on above: Performed By: #### 4 6065 #### [facility] [address] [place] [address] Donavan Shafer M.D. [id number] LDH Lactate to pyruvate reac tion [Catalytic activity/Vol]on 01-20-2024 Interpretation and review of laboratory results Normal [facility] No Panel Informationon 01-19 [facility] Interpretation and review of laboratory results Normal [facility] No Panel InformationOrdered By: Uziel Reagan on 01-20-2024 [facility] POC URINALYSIS DIPSTICK,AUTO - RALSon 01-20-2024 POC BILIRUBIN, URINE Negative Normal Negative [facility] Comment on above: Performed By: #### P [id number] #### [facility] [address] [place] [address] [id number] [facility] POC BLOOD, URINE Moderate Abnormal Negative [facility] Comment on above: Performed By: #### P [id number] #### [facility] [address] [place] [address] [id number] [facility] GLUCOSE, URINE Negative Normal Negative [facility] Comment on above: Performed By: #### P [id number] #### [facility] [address] [place] [address] [id number] [facility] KETONES, URINE Negative Normal Negative [facility] Comment on above: Performed By: #### P [id number] #### [facility] [address] [place] [address] [id number] [facility] LEUKOCYTE ESTERASE, URINE Negative Normal Negative [facility] Comment on above: Performed By: #### P [id number] #### [facility] [address] [place] [address] [id number] [facility] NITRITE, URINE Negative Normal Negative [facility] Comment on above: Performed By: #### P [id number] #### [facility] [address] [place] [address] [id number] [facility] PH, URINE 7.0 Normal 5.0-7.0 [facility] Comment on above: Performed By: #### P [id number] #### [facility] [address] [place] [address] [id number] [facility] POC SPECIFIC GRAVITY 1.010 Normal 1.005-1.025 [facility] Comment on above: Performed By: #### P [id number] #### [facility] [address] [place] [address] [id number] [facility] UROBILINOGEN 0.2 mg/dL Normal < 2.0 [facility] Comment on above: Performed By: #### P [id number] #### [facility] [address] [place] [address] [id number] [facility] Protein (U) [Mass/Vol] 100 mg/dL Abnormal Negative [facility] Comment on above: Performed By: #### P [id number] #### [facility] [address] [place] [address] [id number] HP[facility] POC Urinalysis Dipstick, Aut oon 01-20-2024 Bilirubin Ql (U) Negative Negative [facility] Glucose Ql (U) Negative Negative mg/dL [facility] Hemoglobin Ql (U) Moderate Abnormal Negative [facility] Interpretation and review of laboratory results Abnormal [facility] Ketones Ql (U) Negative Negative mg/dL [facility] Leukocyte esterase Test strip Ql (U) Negative Negative [facility] Nitrite Ql (U) Negative Negative [facility] pH (U) 7.0 [pH] 5.0 - 7.0 [facility] Protein Ql (U) 100 mg/dL Abnormal Negative [facility] Specific gravity (U) [Rel density] 1.010 1.005 - 1.025 [facility] Urobilinogen Qn (U) 0.2 mg/dL NINF - 2 .0 mg/dL [facility] PROTEIN / CREATININE RATIO, URINEon 01-20-2024 CREATININE,UR 53.7 mg/dL Normal [facility] Comment on above: Order Comment: Ede e send stat Performed By: #### 4 [id number] #### [facility] [address] [place] [address] Donavan Shafer M.D. [id number] Protein (U) [Mass/Vol] 26.4 mg/dL Normal Ri [facility] Comment on above: Order Comment: Ede e send stat Performed By: #### 4 7136 #### [facility] [address] [place] [address] Donavan Shafer M.D. [id number] PROTEIN CREATININE RATIO 0.5 ratio High 0.0-0.2 [facility] Comment on above: Order Comment: Pleas e send stat Performed By: #### 4 [id number] #### [facility] [address] [place] [address] Donavan Shafer M.D. [id number] PT/INRon 01-20-2024 INR Coag (PPP) [Relative time] 1.0 {INR} 0.8 - 1.1 [facility] INR Coag (PPP) [Relative time] 1.0 {INR} Normal 0.8-1.1 [facility] Comment on above: Order Comment: Stella bajwa the induction phase of oral anticoagulation, the INR may not reflect the anticoagulation status of the patient. Therapeutic ranges for INR's are: Most clinical situations: INR 2.0-3.0 Mechanical Prosthetic Valve: INR 2.5-3.5 Critical: INR >5.0 Performed By: #### 4 6391 #### [facility] [address] [place] [address] Donavan Shafer M.D. [id number] PT Coag (PPP) [Time] 13.3 s Normal 11.8-14.3 [facility] Comment on above: Order Comment: Stella bajwa the induction phase of oral anticoagulation, the INR may not reflect the anticoagulation status of the patient. Therapeutic ranges for INR's are: Most clinical situations: INR 2.0-3.0 Mechanical Prosthetic Valve: INR 2.5-3.5 Critical: INR >5.0 Performed By: #### 4 6391 #### [facility] [address] [place], [place] [id number] Donavan Shafer M.D. [id number] Protein / Creatinine Ratio, UrineOrdered By: Misael Zuleta on 01-20-2024 Protein/Creatinine (U) [Ratio] 0.5 High [facility] Protein/Creatinine (U) [Rati o]Ordered By: Misael Zuleta on 01-20-2024 Creatinine (U) [Mass/Vol] 53.7 mg/dL [facility] Interpretation and review of laboratory results Abnormal [facility] Protein (U) [Mass/Vol] 26.4 mg/dL [facility] SYPHILIS ANTIBODYon 01-20-20 SYPHILIS TREPONEMAL ANTIBODY Negative Normal Negative [facility] Comment on above: Performed By: #### 4 8052 #### [facility] [address] [place], [place] [address] Donavan Shafer M.D. [id number] T. pallidum IgG Ql (S)on Interpretation and review of laboratory results Normal [facility] T. pallidum Ab Ql (S) Negative Negative [facility] TYPE AND SCREENon 01-20-2024 TYPE AND SCREEN ABORH: O Positive AB SCREEN: Negative EXPIRATION DATE: 01/23/2024 23:59 EST Normal [facility] Comment on above: Performed By: #### 4 6391 #### [facility] [address] [place] [address] 15558 Donavan Shafer M.D. [id number] URIC ACIDon 01-20-2024 Urate [Mass/Vol] 5.4 mg/dL Normal 2.4-7.0 [facility] Comment on above: Performed By: #### 4 6629 #### [facility] [address] [place] [address] 96[address] Donavan Shafer M.D. [id number] Urate [Mass/Vol]on Interpretation and review of laboratory results Normal [facility] Uric Acidon 01-20-2024 Urate [Mass/Vol] 5.4 mg/dL 2.4 - 7.0 mg/dL [facility] aPTT Coag (Bld) [Time]on Therapeutic range for APTT's is 68 - 104 seconds [facility] Comprehensive metabolic 2000 panelon 01-16-2023 Albumin [Mass/Vol] 4.7 g/dL 3.5 - 4.8 g/dL [facility] ALP [Catalytic activity/Vol] 44 U/L [facility] ALT [Catalytic activity/Vol] 13 U/L [facility] Anion gap [Moles/Vol] 11 mmol/L 6 - 18 Tri [facility] AST [Catalytic activity/Vol] 17 U/L [facility] Bilirubin [Mass/Vol] 0.6 mg/dL 0.3 - 1.2 mg/dL [facility] Calcium [Mass/Vol] 9.5 mg/dL 8.9 - 10. 3 mg/dL [facility] Chloride [Moles/Vol] 103 mmol/L 98 - 107 mmol/L [facility] CO2 [Moles/Vol] 25 mmol/L 22 - 32 mmol/L [facility] Creatinine [Mass/Vol] 0.71 mg/dL 0.60 - 1.30 mg/dL [facility] GFR/1.73 sq M.predicted among non-blacks MDRD (S/P/Bld) [Vol rate/Area] 121 mL/min/{1.73_m2} - PINF [facility] Comment on above: Effective June 15, 2022, calculation based on the Chronic Kidney Disease Epidemiology Collaboration (CKD-EPI) equation refit without adjustment for race. Glucose [Mass/Vol] 78 mg/dL 70 - 99 mg/dL [facility] Potassium [Moles/Vol] 4.2 mmol/L 3.6 - 5.1 mmol/L [facility] Protein [Mass/Vol] 7.8 g/dL 6.1 - 7.9 g/dL [facility] Sodium [Moles/Vol] 139 mmol/L 136 - 145 mmol/L [facility] Urea nitrogen [Mass/Vol] 13 mg/dL 8 - 20 mg/dL [facility] Urea nitrogen/Creatinine [Mass ratio] 18.3 mg/mg 12.0 - 20.0 [facility] TSH Qn 1.27 m[IU]/L Normal 0.45-5.33 [facility] Comment on above: Performed By: #### 2 4323-8 #### [facility] [address] [place] [address] Hemogram and platelets WO di fferential panel [...] Heal th Platelets (Bld) [#/Vol] 220 10*3/uL [facility] RBC (Bld) [#/Vol] 4.70 10*6/uL [facility] WBC (Bld) [#/Vol] 6.5 10*3/uL [facility] Basophils (Bld) [#/Vol] 0.03 10*3/uL Normal 0.00-0.20 [facility] Comment on above: Performed By: #### 2 4317-0 #### [facility] [place] [facility] [address] [place] [address] Basophils/100 WBC (Bld) 0.5 % Normal 0.0-2.0 [facility] Comment on above: Performed By: #### 2 4317-0 #### [facility] [place] [facility] [address] [place] [address] 12892 Eosinophils (Bld) [#/Vol] 0.13 10*3/uL Normal 0.00-0.70 [facility] Comment on above: Performed By: #### 2 4317-0 #### [facility] [place] [facility] [address] [place] [address]2814 Eosinophils/100 WBC (Bld) 2.0 % Normal 0.0-7.0 [facility] Comment on above: Performed By: #### 2 4317-0 #### [facility] [place] [facility] [address] [place] [address]013 Erythrocyte distribution width (RBC) [Ratio] 12.5 % Normal 11.0-14.8 [facility] Comment on above: Performed By: #### 2 4317-0 #### [facility] [place] [facility] [address] [place] [address] 61973 Hematocrit (Bld) [Volume fraction] 43.2 % Normal 34.3-47.9 [facility] Comment on above: Performed By: #### 2 4317-0 #### [facility] [place] [facility] [address] [place] [address]23 Hemoglobin (Bld) [Mass/Vol] 14.6 g/dL Normal 12.0-16.0 [facility] Comment on above: Performed By: #### 2 4317-0 #### [facility] [place] [facility] [address] [place] [address] 54572 Immature granulocytes (Bld) [#/Vol] 0.01 10*3/uL Normal 0.00-0.10 [facility] Comment on above: Performed By: #### 2 7-0 #### [facility] [place] [facility] [address] [place] [address] 71234 Immature granulocytes/100 WBC (Bld) 0.2 % Normal 0.0-1.2 [facility] Comment on above: Performed By: #### 2 7-0 #### [facility] [place] [facility] [address] [place] [address] 67729 Lymphocytes (Bld) [#/Vol] 1.06 10*3/uL Normal 1.00-4.80 [facility] Comment on above: Performed By: #### 2 7-0 #### [facility] [place] [facility] [address] [place] [address]306 Lymphocytes/100 WBC (Bld) 16.4 % Low 17.9-49.6 [facility] Comment on above: Performed By: #### 2 4317-0 #### [facility] [place] [facility] [address] [place] [address] [address] MCH 31.1 pcg Normal 27.0-34.0 [facility] Comment on above: Performed By: #### 2 4317-0 #### [facility] [place] ([facility] LAB [address] [place] [address] MCHC (RBC) [Mass/Vol] 33.8 g/dL Normal 30.8-35.3 Taryn [facility] Comment on above: Performed By: #### 2 4317-0 #### [facility] [place] LAB [address] [place] [address] MCV (RBC) [Entitic vol] 91.9 fL Normal 80.0-97.0 [facility] Comment on above: Performed By: #### 2 4317-0 #### [facility] [place] [facility] [address] [place] [address] Monocytes (Bld) [#/Vol] 0.65 10*3/uL Normal 0.00-0.90 [facility] Comment on above: Performed By: #### 2 4317-0 #### [facility] [place] [facility] [address] [place] [address] Monocytes/100 WBC (Bld) 10.0 % Normal 0.0-12.0 [facility] Comment on above: Performed By: #### 2 4317-0 #### [facility] [place] [address] [place] [address] Neutrophils Absolute 4.60 K/mcL Normal 1.80-7.70 Moun [facility] Comment on above: Performed By: #### 2 4317-0 #### [facility] [place] [facility] [address] [place] [address] Neutrophils/100 WBC (Bld) 70.9 % Normal 38.1-75.5 [facility] Comment on above: Performed By: #### 2 4317-0 #### [facility] [place] [facility] [address] [place] [address] Platelet mean volume (Bld) [Entitic vol] 10.6 fL Normal 6.2-12.1 [facility] Comment on above: Performed By: #### 2 4317-0 #### [facility] [place] [facility] [address] [place] [address] Platelets (Bld) [#/Vol] 220 10*3/uL Normal 142-424 [facility] Comment on above: Performed By: #### 2 4317-0 #### [facility] [place] [address] [place] [address] RBC (Bld) [#/Vol] 4.70 10*6/uL Normal 3.74-5.34 [facility] Comment on above: Performed By: #### 2 4317-0 #### [facility] [place] [address] [place] [address] WBC (Bld) [#/Vol] 6.5 10*3/uL Normal 4.6-10.2 [facility] Comment on above: Performed By: #### 2 4317-0 #### [facility] [place] [address] [place] [address] Lipid panel with direct LDLo n 01-16-2023 Cholesterol [Mass/Vol] 157 mg/dL NINF - 200 mg/dL [facility] Cholesterol in HDL [Mass/Vol] 65 mg/dL 40 - PINF mg/dL [facility] Cholesterol in LDL [Mass/Vol] 78 mg/dL NINF - 100 mg/dL [facility] Cholesterol in VLDL [Mass/Vol] 14 mg/dL 2 - 38 mg/dL [facility] Triglyceride [Mass/Vol] 70 mg/dL [facility] mg/dL [facility] No Panel Informationon 01-16 Interpretation and review of laboratory results Normal [facility] TSH Qnon 01-16-2023 Interpretation and review of laboratory results Normal [facility] Thyroid stimulating hormoneo n 01-16-2023 TSH Qn 1.27 m[IU]/L [facility] Bacterial vaginosis and vagi nitis DNA panel Probe+sig amp (Vag fld)on 08-26-2022 C. glabrata DNA CARLI+non-probe Ql (Pos bld culture) Negative Negative [facility] Martha sp rRNA Probe Ql (Vag fld) Negative Negative [facility] Interpretation and review of laboratory results Normal [facility] SARS-CoV-2 (COVID-19) RNA CRALI+probe Ql (Unsp spec) Negative Negative [facility] T. vaginalis Ag Ql (Vag fld) Negative Negative [facility] N. gonorrhoeae DNA CARLI+probe Ql (U)on 08-26-2022 C. trachomatis rRNA Probe Ql (Unsp spec) Negative Negative [facility] Interpretation and review of laboratory results Normal [facility] N. gonorrhoeae rRNA Probe Ql (Unsp spec) Negative Negative [facility] HPV DNA Probe+sig amp Ql (Un sp spec)on 08-25-2022 HPV RNA Negative Normal Negative [facility] Comment on above: Performed By: #### 4 4547-8 #### [facility] [address] [place] [address] N gonorrhoea DNA Ur Ql CARLI+p robeon 08-25-2022 N. gonorrhoeae DNA CARLI+probe Ql (U) N. gonorrhoeae, RNA Probe Status = F Negative Chlamydia, RNA Probe Status = F Negative Normal Negative [facility] Comment on above: Performed By: #### 2 1416-3 #### [facility] LAB [address] [place] [address] N. gonorrhoeae DNA CARLI+probe Ql (U)on 08-25-2022 Bacterial vaginosis and vaginitis DNA panel Probe+sig amp (Vag fld) Bacterial vaginosis Status = F Negative Martha Species Status = F Negative Martha glabrata Status = F Negative Trichomonas vaginosis Status = F Negative Normal Negative [facility] Comment on above: Performed By: #### 2 1416-3 #### [facility] LAB [address] [place] [address] Service Cmnt-Impon 2 Service comment (Unsp spec) [Interp] F Z01.419, Z12.4 08/17/2022 NG NG Cervix SEE NOTE Satisfactory for Evaluation Endocervical/Transf ormation Zone component present SEE NOTE NEG SEE NOTE NEGATIVE FOR INTRAEPITHELIAL LESION OR MALIGNANCY SEE NOTE No Organisms Detected Test Performed at: [email or web address] [email or web address] [address] Bree Baker MD, PhD TNP SEE NOTE Screener JBJose Juan CT(ASCP) EXPLANATORY NOTE: The Pap is a [...] with computer assisted technology. TNP TNP Normal [facility] Comment on above: Performed By: #### 8 251-1 #### LANEY DILL [address] [place] [address] 25-hydroxyvitamin D3 [Mass/V ol]on 07-21-2022 Interpretation and review of laboratory results Abnormal [facility] Comprehensive metabolic 2000 panelon 07-21-2022 Albumin [Mass/Vol] 4.2 g/dL 3.5 - 4.8 g/dL [facility] ALP [Catalytic activity/Vol] 46 U/L [facility] ALT [Catalytic activity/Vol] 13 U/L [facility] Anion gap [Moles/Vol] 7 mmol/L 6 - 18 [facility] AST [Catalytic activity/Vol] 15 U/L [facility] Bilirubin [Mass/Vol] 0.4 mg/dL 0.3 - 1.2 mg/dL [facility] Calcium [Mass/Vol] 9.0 mg/dL 8.9 - 10. 3 mg/dL [facility] Chloride [Moles/Vol] 104 mmol/L 98 - 107 mmol/L [facility] CO2 [Moles/Vol] 28 mmol/L 22 - 32 mmol/L [facility] Creatinine [Mass/Vol] 0.61 mg/dL 0.60 - 1.30 mg/dL [facility] GFR/1.73 sq M.predicted MDRD (S/P/Bld) [Vol rate/Area] 128 mL/min/{1.73_m2} - PINF [facility] Comment on above: Effective June 15, 2022, calculation based on the Chronic Kidney Disease Epidemiology Collaboration (CKD-EPI) equation refit without adjustment for race. Glucose [Mass/Vol] 93 mg/dL 70 - 99 mg/dL [facility] Interpretation and review of laboratory results Abnormal [facility] Potassium [Moles/Vol] 4.5 mmol/L 3.6 - 5.1 mmol/L [facility] Protein [Mass/Vol] 7.0 g/dL 6.1 - 7.9 g/dL Tr [facility] Sodium [Moles/Vol] 139 mmol/L 136 - 145 mmol/L [facility] Urea nitrogen [Mass/Vol] 15 mg/dL 8 - 20 mg/dL [facility] Urea nitrogen/Creatinine [Mass ratio] 24.6 mg/mg High 12.0 - 20.0 [facility] Vit D, 25-Hydroxy 23.0 ng/mL Low 30.0-100.0 [facility] Comment on above: Result Comment: Defi cient <20 ng/mL Insufficient 20 to 30 ng/mL Sufficient 30-100 ng/mL Toxic >100 ng/mL Performed By: #### 2 4323-8 #### [facility] LAB [address] [place] [address] HCV Ab IA Qlon 07-21-2022 Interpretation and review of laboratory results Normal [facility] HIV 1+2 Ab IA.rapid Ql (Unsp spec)on 07-21-2022 HIV 1+2 Ab+HIV1 p24 Ag IA Ql Non-Reactive Nonreactive [facility] Interpretation and review of laboratory results Normal [facility] This is a 4th generation test (P24 AG,HIV-1 AB, HIV-2 AB) Specimens with preliminary reactive results will be confirmed by HIV1/2 Differentiation test ([employer]). THE IDENTITY OF A PERSON ON WHOM [...] responsible for compensitory damages and equitable relief. [facility] Hepatitis C Antibody Non-Reactive Normal Nonreactive [facility] Comment on above: Order Comment: This is a 4th generation test (P24 AG,HIV-1 AB, HIV-2 AB) Specimens with preliminary reactive results will be confirmed by HIV1/2 Differentiation test ([employer]). THE IDENTITY OF A PERSON ON [...] relief. Performed By: #### 4 9580-4 #### [facility] LAB [address] [place] [address] Hemogram and platelets WO di fferential panel [...] Heal th Platelets (Bld) [#/Vol] 243 10*3/uL [facility] RBC (Bld) [#/Vol] 4.44 10*6/uL [facility] WBC (Bld) [#/Vol] 6.0 10*3/uL [facility] Basophils (Bld) [#/Vol] 0.04 10*3/uL Normal 0.00-0.20 [facility] Comment on above: Performed By: #### 2 4317-0 #### [facility] [place] [facility] [address] [place] [address] Basophils/100 WBC (Bld) 0.7 % Normal 0.0-2.0 [facility] Comment on above: Performed By: #### 2 7-0 #### [facility] [place] [facility] [address] [place] [address] Eosinophils (Bld) [#/Vol] 0.25 10*3/uL Normal 0.00-0.70 [facility] Comment on above: Performed By: #### 2 7-0 #### [facility] [place] [facility] [address] [place] [address] Eosinophils/100 WBC (Bld) 4.2 % Normal 0.0-7.0 [facility] Comment on above: Performed By: #### 2 7-0 #### [facility] [place] [facility] [address] [place] [address] Erythrocyte distribution width (RBC) [Ratio] 12.6 % Normal 11.0-14.8 [facility] Comment on above: Performed By: #### 2 4317-0 #### [facility] [place] [facility] [address] [place] [address] Hematocrit (Bld) [Volume fraction] 40.5 % Normal 34.3-47.9 [facility] Comment on above: Performed By: #### 2 4317-0 #### [facility] [place] [facility] [address] [place] [address] Hemoglobin (Bld) [Mass/Vol] 13.6 g/dL Normal 12.0-16.0 [facility] Comment on above: Performed By: #### 2 4317-0 #### [facility] [place] [address] [place] [address] Immature granulocytes (Bld) [#/Vol] 0.02 10*3/uL Normal 0.00-0.10 [facility] Comment on above: Performed By: #### 2 7-0 #### [facility] [place] [facility] [address] [place] [address] Immature granulocytes/100 WBC (Bld) 0.3 % Normal 0.0-1.2 [facility] Comment on above: Performed By: #### 2 7-0 #### [facility]) [address] [address] Lymphocytes (Bld) [#/Vol] 0.98 10*3/uL Low 1.00-4.80 [facility] Comment on above: Performed By: #### 2 7-0 #### [facility] [address] [place] [address] Lymphocytes/100 WBC (Bld) 16.4 % Low 17.9-49.6 [facility] Comment on above: Performed By: #### 2 7-0 #### [facility] [place] [address] [place] [address] MCH 30.6 pcg Normal 27.0-34.0 [facility] Comment on above: Performed By: #### 2 7-0 #### [facility] [place] [address] [place] [address] MCHC (RBC) [Mass/Vol] 33.6 g/dL Normal 30.8-35.3 Taryn [facility] Comment on above: Performed By: #### 2 7-0 #### [facility] [place] [facility] [address] [place] [address] MCV (RBC) [Entitic vol] 91.2 fL Normal 80.0-97.0 [facility] Comment on above: Performed By: #### 2 4317-0 #### [facility] [place] [address] [place] [address] Monocytes (Bld) [#/Vol] 0.62 10*3/uL Normal 0.00-0.90 [facility] Comment on above: Performed By: #### 2 4317-0 #### [facility] [place] [facility] [address] [place] [address] Monocytes/100 WBC (Bld) 10.4 % Normal 0.0-12.0 [facility] Comment on above: Performed By: #### 2 4317-0 #### [facility] [place] [facility] [address] [place] [address] Neutrophils Absolute 4.06 K/mcL Normal 1.80-7.70 [facility] Comment on above: Performed By: #### 2 4317-0 #### [facility] [place] [facility] [address] [place] [address] Neutrophils/100 WBC (Bld) 68.0 % Normal 38.1-75.5 [facility] Comment on above: Performed By: #### 2 4317-0 #### [facility] [place] [facility] [address] [place] [address] Platelet mean volume (Bld) [Entitic vol] 10.3 fL Normal 6.2-12.1 [facility] Comment on above: Performed By: #### 2 4317-0 #### [facility] [place] [facility] [address] [place] [address] Platelets (Bld) [#/Vol] 243 10*3/uL Normal 142-424 [facility] Comment on above: Performed By: #### 2 4317-0 #### [facility] [place] [address] [place] [address] RBC (Bld) [#/Vol] 4.44 10*6/uL Normal 3.74-5.34 [facility] Comment on above: Performed By: #### 2 4317-0 #### [facility] [address] [place] [address] WBC (Bld) [#/Vol] 6.0 10*3/uL Normal 4.6-10.2 [facility] Comment on above: Performed By: #### 2 4317-0 #### [facility] [place] [address] [place] [address] Hepatitis C antibody screeno n 07-21-2022 HCV Ab IA Ql Non-Reactive Nonreactive [facility] Lipid panel with direct LDLo n 07-21-2022 Cholesterol [Mass/Vol] 137 mg/dL [facility] mg/dL [facility] Cholesterol in HDL [Mass/Vol] 53 mg/dL 40 - PINF mg/dL [facility] Cholesterol in LDL [Mass/Vol] 70 mg/dL [facility] - 100 mg/dL [facility] Cholesterol in VLDL [Mass/Vol] 13.8 mg/dL 2 - 38 mg/dL [facility] Interpretation and review of laboratory results Normal [facility] Triglyceride [Mass/Vol] 69 mg/dL [facility] - 200 mg/dL [facility] No Panel Informationon 07-21 [facility] TSH Qnon 07-21-2022 Interpretation and review of laboratory results Normal [facility] Thyroid stimulating hormoneo n 07-21-2022 TSH Qn 0.90 m[IU]/L [facility] Vitamin D 25 hydroxyon 07-21 25-hydroxyvitamin D3 [Mass/Vol] 23.0 ng/mL Low 30.0 - 100.0 ng/mL [facility] Comment on above: Deficient <20 ng/mL Insufficient [...] by Oseas Martines on 08/27/2021 0804 Normal [facility] [employer] Q - BV/VAGINITIS PANEL DNA P Larry 08-23-2021 TRICHOMONAS: TNP Normal [facility] [employer] Comment on above: Order Comment: [facility] Testing performed at: [employer], [facility], [address], [address] [place], [address], Meat Cutting Teacher: Haja Estrada MD [facility] Collection Date/Time: [id number] [facility] Results Received Date/Time: [id number] [facility] Reported Date/Time: [id number] Result Comment: TEST NOT PERFORMED Due to a laboratory error, we are unable to perform this test. Specimen exceeded stability due to incorrect storage. Performed By: #### 1 [id number] #### [facility] Default [address] [place] [address] MRI IACS WO W CONon 03-19-20 20 [...] WYATT CURRAN Date: 2020-03-19 09:57 Normal [facility] CHLAMYDIA/GONOCOCCUS CARLI (SW AB/URINE/PAPon 05-02-2019 Chlamydia trachomatis, CARLI Negative Normal Negative [facility] Comment on above: Performed By: #### C T/NGNA #### [facility] [address] [address] Yuri Carias Neisseria gonorrhoeae, CARLI Negative Normal Negative [facility] Comment on above: Performed By: #### C T/NGNA #### [facility] [address] [address] Yuri Carias VAGINITIS/VAGINOSIS DNA PROB Jose 04-30-2019 Martha species Negative Normal Negative [facility] Comment on above: Performed By: #### V AGINT #### [facility] [address] [address] Yuri Carias Gardnerella vaginalis Negative Normal Negative [facility] Comment on above: Performed By: #### V AGINT #### [facility] [address] [address] Yuri Carias Trichomonas vaginalis Negative Normal Negative [facility] Comment on above: Performed By: #### V AGINT #### [facility] [address] [address] Yuri Carias Vital Signs Date Time Vital Sign Value Performing Clinician Faci lity 06-22-2025 11:03-0400 Body mass index (BMI) [Ratio] 39.18 kg/m2 Ernestine CASTORENA Work Phone: [facility] 06-22-2025 11:03-0400 Body weight 100.34 kg Ernestine CASTORENA Work Phone: [facility] 06-22-2025 11:03-0400 Diastolic blood pressure 76 mm[Hg] Ernestine CASTORENA Work Phone: [facility] 06-22-2025 11:03-0400 Systolic blood pressure 120 mm[Hg] Ernestine CASTORENA Work Phone: [facility] 06-08-2025 15:08-0400 Body mass index (BMI) [Ratio] 38.79 kg/m2 Quincy Roberts NP Work Phone: [facility] 06-08-2025 15:08-0400 Body weight 99.34 kg Quincy Roberts NP Work Phone: [facility] 06-08-2025 15:08-0400 Diastolic blood pressure 70 mm[Hg] Quincy Alejandra STAFFING MANAGER Work Phone: [facility] 06-08-2025 15:08-0400 Systolic blood pressure 120 mm[Hg] Quincy Alejandra STAFFING MANAGER Work Phone: [facility] 05-24-2025 10:30-0400 Body mass index (BMI) [Ratio] 38.31 kg/m2 Ernestine López PA Work Phone: [facility] 05-24-2025 10:30-0400 Body weight 98.09 kg Ernestine López PA Work Phone: [facility] 05-24-2025 10:30-0400 Diastolic blood pressure 60 mm[Hg] Ernestine López PA Work Phone: [facility] 05-24-2025 10:30-0400 Systolic blood pressure 110 mm[Hg] Ernestine López PA Work Phone: [facility] 05-10-2025 14:41-0400 Body mass index (BMI) [Ratio] 38.17 kg/m2 Josiah Amadeo DO Work Phone: [facility] 05-10-2025 14:41-0400 Body weight 97.75 kg Josiah Amadeo DO Work Phone: [facility] 05-10-2025 14:41-0400 Diastolic blood pressure 64 mm[Hg] Josiah Amadeo DO Work Phone: [facility] 05-10-2025 14:41-0400 Systolic blood pressure 122 mm[Hg] Josiah Amadeo DO Work Phone: [facility] 04-26-2025 11:21-0400 Body mass index (BMI) [Ratio] 37.87 kg/m2 Josiah Amadeo DO Work Phone: [facility] 04-26-2025 11:21-0400 Body weight 96.98 kg Josiah Amadeo DO Work Phone: [facility] 04-26-2025 11:21-0400 Diastolic blood pressure 60 mm[Hg] Josiah Amadeo DO Work Phone: [facility] 04-26-2025 11:21-0400 Systolic blood pressure 120 mm[Hg] Josiah Amadeo DO Work Phone: [facility] 04-10-2025 11:33-0400 Body mass index (BMI) [Ratio] 37.73 kg/m2 Quincy Haasly STAFFING MANAGER Work Phone: [facility] 04-10-2025 11:33-0400 Body weight 96.62 kg Quincy Storyerly STAFFING MANAGER Work Phone: [facility] 04-10-2025 11:33-0400 Diastolic blood pressure 72 mm[Hg] Quincy Alejandra STAFFING MANAGER Work Phone: [facility] 04-10-2025 11:33-0400 Systolic blood pressure 118 mm[Hg] Quincy Haasly STAFFING MANAGER Work Phone: [facility] 03-02-2025 09:57-0400 Body mass index (BMI) [Ratio] 36.87 kg/m2 Ernestine Rene PA Work Phone: [facility] 03-02-2025 09:57-0400 Body weight 94.4 kg Ernestine Pulaski PA Work Phone: [facility] 03-02-2025 09:57-0400 Diastolic blood pressure 68 mm[Hg] Ernestine Pulaski PA Work Phone: [facility] 03-02-2025 09:57-0400 Systolic blood pressure 110 mm[Hg] Ernestine Pulaski PA Work Phone: [facility] 02-02-2025 10:44-0400 Body mass index (BMI) [Ratio] 36.63 kg/m2 Ernestine Pulaski PA Work Phone: [facility] 02-02-2025 10:44-0400 Body weight 93.8 kg Ernestine Rene PA Work Phone: [facility] 02-02-2025 10:44-0400 Diastolic blood pressure 64 mm[Hg] Ernestine Rene PA Work Phone: [facility] 02-02-2025 10:44-0400 Systolic blood pressure 110 mm[Hg] Ernestine CASTORENA Work Phone: [facility] 01-05-2025 11:28-0400 Body mass index (BMI) [Ratio] 36.51 kg/m2 Josiah Amadeo DO Work Phone: [facility] 01-05-2025 11:28-0400 Body weight 93.5 kg Josiah Amadeo DO Work Phone: [facility] 01-05-2025 11:28-0400 Diastolic blood pressure 78 mm[Hg] Josiah Amadeo DO Work Phone: [facility] 01-05-2025 11:28-0400 Systolic blood pressure 120 mm[Hg] Josiah Amadeo DO Work Phone: [facility] 12-22-2024 14:47-0400 Body mass index (BMI) [Ratio] 37.45 kg/m2 Nom Nurse [facility] 12-22-2024 14:47-0400 Body weight 95.89 kg [facility] Nurse [facility] 01-24-2024 13:30-0400 Respiratory rate 16 /min Frankie Artis MD Work Phone: [facility] 01-24-2024 08:29-0400 Body temperature 98.1 [degF] Frankie Artis MD Work Phone: [facility] 01-24-2024 08:29-0400 Diastolic blood pressure 84 mm[Hg] Frankie Artis MD Work Phone: [facility] 01-24-2024 08:29-0400 Heart rate 92 /min Frankie Artis MD Work Phone: [facility] 01-24-2024 08:29-0400 SaO2% (BldA) [Mass fraction] 99 % Frankie Artis MD Work Phone: [facility] 01-24-2024 08:29-0400 Systolic blood pressure 128 mm[Hg] Frankie Artis MD Work Phone: [facility] 01-20-2024 21:00-0400 Body height 160 cm Frankie Artis MD Work Phone: [facility] [facility] 01-20-2024 21:00-0400 Body mass index (BMI) [Ratio] 40.57 kg/m2 Frankie Artis MD Work Phone: [facility] 01-20-2024 21:00-0400 Body weight 103.87 kg Frankie Artis MD Work Phone: [facility] 01-16-2023 11:34-0400 Body height 160.6 cm Ej Burk STAFFING MANAGER Work Phone: [facility] 01-16-2023 11:34-0400 Body mass index (BMI) [Ratio] 30.42 kg/m2 Ej Malcomt STAFFING MANAGER Work Phone: [facility] 01-16-2023 11:34-0400 Body temperature 98.2 [degF] Ej Briehart STAFFING MANAGER Work Phone: [facility] 01-16-2023 11:34-0400 Body weight 78.47 kg Ej Briehart STAFFING MANAGER Work Phone: [facility] 01-16-2023 11:34-0400 Diastolic blood pressure 66 mm[Hg] Ej Briehart STAFFING MANAGER Work Phone: [facility] 01-16-2023 11:34-0400 Heart rate 70 /min Ej Neuhart STAFFING MANAGER Work Phone: [facility] 01-16-2023 11:34-0400 Respiratory rate 14 /min Ej Briehart STAFFING MANAGER Work Phone: [facility] 01-16-2023 11:34-0400 Systolic blood pressure 116 mm[Hg] Ej Neuhart STAFFING MANAGER Work Phone: [facility] 08-25-2022 11:40-0500 Diastolic blood pressure 67 mm[Hg] Ej Neuhart STAFFING MANAGER Work Phone: [employer] 08-25-2022 11:40-0500 Heart rate 74 /min Ej Briehart STAFFING MANAGER Work Phone: [facility] 08-25-2022 11:40-0500 Systolic blood pressure 107 mm[Hg] Ej Briehart STAFFING MANAGER Work Phone: [employer] 08-25-2022 11:29-0500 Body height 160.6 cm Ej Briehart STAFFING MANAGER Work Phone: [employer] 08-25-2022 11:29-0500 Body mass index (BMI) [Ratio] 31.3 kg/m2 Ej Neuhart STAFFING MANAGER Work Phone: [facility] 08-25-2022 11:29-0500 Body temperature 98.71 [degF] Ej Neuhart STAFFING MANAGER Work Phone: [employer] 08-25-2022 11:29-0500 Body weight 80.74 kg Ej Briehart STAFFING MANAGER Work Phone: [employer] 08-25-2022 11:29-0500 Respiratory rate 14 /min Ej Briehart STAFFING MANAGER Work Phone: [facility] 07-21-2022 10:44-0500 Body height 160.6 cm Ej Briehart STAFFING MANAGER Work Phone: [employer] 07-21-2022 10:44-0500 Body mass index (BMI) [Ratio] 31.16 kg/m2 Ej Neuhart STAFFING MANAGER Work Phone: [employer] 07-21-2022 10:44-0500 Body temperature 98.01 [degF] Ej Neuhart STAFFING MANAGER Work Phone: [employer] 07-21-2022 10:44-0500 Body weight 80.38 kg Ej Neuhart STAFFING MANAGER Work Phone: [employer] 07-21-2022 10:44-0500 Diastolic blood pressure 69 mm[Hg] Ej Briehart STAFFING MANAGER Work Phone: [facility] 07-21-2022 10:44-0500 Heart rate 70 /min Ej Neuhart STAFFING MANAGER Work Phone: [facility] 07-21-2022 10:44-0500 Respiratory rate 16 /min Ej Neuhart STAFFING MANAGER Work Phone: [facility] 07-21-2022 10:44-0500 Systolic blood pressure 133 mm[Hg] Ej Neuhart STAFFING MANAGER Work Phone: [facility] Encounters Encounter Date Encounter Type Care Provider Facility Start: 06-22-2025 End: 06-22-2025 Bamboo [place] Ernestine CASTORENA Work Phone: [facility] Start: 06-22-2025 End: 06-22-2025 Bamboo flowsheet Ernestine CASTORENA Work Phone: [facility] Start: 06-22-2025 End: 06-22-2025 Office outpatient visit 15 minutes Ernestine CASTORENA Work Phone: [facility] Comment on above: Third trimester preg jakob ([facility]); 36 weeks gestation of ([facility]) Start: 06-08-2025 End: 06-08-2025 ambulatory QUINCY ROBERTS Not Available Start: 06-08-2025 End: 06-08-2025 Office outpatient visit 15 minutes Quincy Roberts STAFFING MANAGER Work Phone: [facility] Comment on above: 34 weeks gestation o f ([facility]); Third trimester ([facility]); Heartburn during in third trimester ([facility]); H/O pre-eclampsia in prior , currently ([facility]) Start: 06-08-2025 End: 06-08-2025 Bamboo flowsheet Quincy Roberts STAFFING MANAGER Work Phone: [facility] Start: 06-08-2025 End: 06-08-2025 Bamboo flowsheet Quincy Roberts NP Work Phone: [facility] Start: 05-24-2025 End: 05-24-2025 Bamboo flowsheet Ernestine López PA Work Phone: [facility] Start: 05-24-2025 End: 05-24-2025 Bamboo flowsheet Ernestine CASTORENA Work Phone: [facility] Start: 05-24-2025 End: 05-24-2025 ambulatory ERNESTINE LÓPEZ Not Available Start: 05-24-2025 End: 05-24-2025 Office outpatient visit 15 minutes Ernestine CASTORENA Work Phone: [facility] Comment on above: Third trimester preg jakob ([facility]); 31 weeks gestation of ([facility]); Heartburn during in third trimester ([facility]) Start: 05-10-2025 End: 05-10-2025 Office outpatient visit 15 minutes Josiah Amadeo DO Work Phone: [facility] Comment on above: Third trimester preg jakob ([facility]); 29 weeks gestation of ([facility]); Heartburn during in third trimester ([facility]) Start: 05-10-2025 End: 05-10-2025 ambulatory JOSIAH AMADEO Not Available Start: 04-28-2025 End: 04-28-2025 Clinisync Result Encounter Josiah Amadeo DO Work Phone: [facility] Unsolicited Start: 04-28-2025 End: 04-28-2025 Clinisync Result Encounter Josiah Amadeo DO Work Phone: [facility] Unsolicited Start: 04-26-2025 End: 04-26-2025 Bamboo flowsheet Josiah Amadeo DO Work Phone: [facility] Start: 04-26-2025 End: 04-26-2025 Bamboo flowsheet Josiah Amadeo DO Work Phone: [facility] Start: 04-26-2025 End: 04-26-2025 ambulatory JOSIAH AMADEO Not Available Start: 04-26-2025 End: 04-26-2025 Office outpatient visit 15 minutes Josiah Lillyo DO Work Phone: [facility] Comment on above: 27 weeks gestation o f ([facility]); Second trimester ([facility]); History of induced hypertension; H/O pre-eclampsia in prior , currently ([facility]); Elevated glucose tolerance test; Vaginal discharge; size inconsistent with dates ([facility]); Yeast infection Start: 04-21-2025 End: 04-21-2025 Clinisync Result Encounter Quincy Roberts NP Work Phone: [facility] Unsolicited Start: 04-21-2025 End: 04-21-2025 Clinisync Result Encounter Quincy Roberts NP Work Phone: [facility] Unsolicited Start: 04-10-2025 End: 04-10-2025 Office outpatient visit 15 minutes Quincy Roberts NP Work Phone: [facility] Comment on above: Second trimester pre gnancy ([facility]); 25 weeks gestation of ([facility]); History of induced hypertension; H/O pre-eclampsia in prior , currently ([facility]); Diabetes mellitus screening Start: 04-10-2025 End: 04-10-2025 ambulatory QUINCY ROBERTS Not Available Start: 03-02-2025 End: 03-04-2025 Clinisync Result Encounter Ernestine CASTORENA Work Phone: [facility] Unsolicited Start: 03-02-2025 End: 03-04-2025 Clinisync Result Encounter Ernestine CASTORENA Work Phone: [facility] Unsolicited Start: 03-02-2025 End: 03-02-2025 flow sheet Ernestine CASTORENA Work Phone: [facility] Comment on above: Second trimester pre gnancy ([facility]); 20 weeks gestation of ([facility]) Start: 03-02-2025 End: 03-02-2025 ambulatory ERNESTINE LÓPEZ Not Available Start: 02-02-2025 End: 02-02-2025 Bamboo flowsheet Ernestine CASTORENA Work Phone: [facility] Start: 02-02-2025 End: 02-02-2025 Bamboo flowsheet Ernestine CASTORENA Work Phone: [facility] Start: 02-02-2025 End: 02-02-2025 flow sheet Ernestine CASTORENA Work Phone: [facility] Comment on above: 16 weeks gestation o f ; Second trimester ; Screening, , for anatomic survey Start: 02-02-2025 End: 02-02-2025 ambulatory ERNESTINE LÓPEZ Not Available Start: 01-05-2025 End: 01-09-2025 Clinisync Result Encounter Josiah Amadeo DO Work Phone: [facility] External Department Unsolicited Start: 01-05-2025 End: 01-06-2025 External Result Encounter Josiah Amadeo DO Work Phone: [facility] External Department Unsolicited Start: 01-05-2025 End: 01-09-2025 External Result Encounter Josiah Amadeo DO Work Phone: [facility] External Department Unsolicited Start: 01-05-2025 End: 01-05-2025 Patient encounter procedure Josiah Amadeo DO Work Phone: [facility] Start: 01-05-2025 End: 01-05-2025 Periodic preventive med est patient 18-39 yrs Josiah Amadeo DO Work Phone: [facility] Comment on above: First [...] inpatient Elisa Kasey Hebert MD Work Phone: [facility] Start: 08-27-2023 End: 08-27-2023 ambulatory [facility] Start: 01-16-2023 End: 01-16-2023 ambulatory EJ BURK [facility] Start: 01-16-2023 End: 01-16-2023 Patient encounter procedure Ej Burk STAFFING MANAGER Work Phone: [facility] Start: 01-16-2023 End: 01-16-2023 Patient encounter status Ej Burk STAFFING MANAGER Work Phone: [facility] Start: 01-16-2023 End: 01-16-2023 Periodic preventive med est patient 18-39 yrs Ej Burk STAFFING MANAGER Work Phone: [facility] Comment on above: Adult general medica l examination (Primary Dx); Bipolar 1 disorder ([facility]); Seasonal allergies Start: 11-20-2022 Refill Ej giraldo STAFFING MANAGER Work Phone: [facility] Comment on above: Allergic rhinitis, u nspecified seasonality, unspecified trigger Start: 11-20-2022 Refill Ej giraldo STAFFING MANAGER Work Phone: [facility] Start: 08-25-2022 End: 08-25-2022 ambulatory EJ BURK [facility] Start: 08-25-2022 End: 08-25-2022 Office outpatient visit 15 minutes Ej Burk STAFFING MANAGER Work Phone: [facility] Comment on above: Encounter for gyneco logical examination without abnormal finding (Primary Dx); Screening for STD (sexually transmitted disease); Screening for cervical cancer Start: 08-25-2022 End: 08-25-2022 Patient encounter procedure Ej Burk STAFFING MANAGER Work Phone: [facility] Start: 08-25-2022 End: 08-25-2022 Patient encounter status Ej Burk STAFFING MANAGER Work Phone: [facility] Start: 07-21-2022 End: 07-21-2022 ambulatory EJ BURK [facility] Start: 07-21-2022 Encounter for genera l adult medical examination without abnormal findings EJ BURK [facility] Start: 07-21-2022 End: 07-21-2022 Office outpatient new 45 minutes Ej Burk STAFFING MANAGER Work Phone: [facility] Comment on above: Allergic rhinitis, u nspecified seasonality, unspecified trigger (Primary Dx); Pain in both upper extremities; Adult general medical examination; Need for influenza vaccination Start: 07-21-2022 End: 07-21-2022 Patient encounter procedure Ej Burk STAFFING MANAGER Work Phone: [facility] Start: 07-21-2022 End: 07-21-2022 Patient encounter status Ej Burk STAFFING MANAGER Work Phone: [facility] Start: 03-19-2020 End: 03-20-2020 Patient encounter procedure HERIBERTO JHA Facility:[facility] Start: 04-28-2019 End: 04-28-2019 Patient encounter procedure ROSALEE LR Facility:[facility] Procedures Date Procedure Procedure Detail Performing Clinician Start: 06-22-2025 Urnls dip stick/tabl et rgnt non-auto w/o micrscp Ernestine CASTORENA Work Phone: Start: 06-08-2025 Urnls dip stick/tabl et rgnt non-auto w/o micrscp Quincy Roberts STAFFING MANAGER Work Phone: Start: 05-24-2025 Urnls dip stick/tabl et rgnt non-auto w/o micrscp Ernestine CASTORENA Work Phone: Start: 05-10-2025 Urnls dip stick/tabl et rgnt non-auto w/o micrscp Josiah Amadeo DO Work Phone: Start: 04-28-2025 GLUCOSE TOLERANCE 3 HOUR Josiah Amadeo DO Work Phone: Start: 04-26-2025 Urnls dip stick/tabl et rgnt non-auto w/o micrscp Josiah Amadeo DO Work Phone: Start: 04-21-2025 GLUCOSE 1 HOUR Quincy Roberts STAFFING MANAGER Work Phone: Start: 04-10-2025 Urnls dip stick/tabl et rgnt non-auto w/o micrscp Quincy Roberts STAFFING MANAGER Work Phone: Start: 03-02-2025 AFP, SERUM, OPEN SPI NA BIFIDA Ernestine CASTORENA Work Phone: Start: 03-02-2025 Urnls dip stick/tabl et rgnt non-auto w/o micrscp Ernestine CASTORENA Work Phone: Start: 02-02-2025 Urnls dip stick/tabl et rgnt non-auto w/o micrscp Ernestine CASTORENA Work Phone: Start: 01-05-2025 RECURRENT VAGINITIS (HTRX) Josiah Lillyo DO Work Phone: Start: 01-05-2025 Urnls dip stick/tabl et rgnt non-auto w/o micrscp Josiah Lillyo DO Work Phone: Start: 01-05-2025 IGP,APTIMA HPV,AGE GDLN Josiah Lillyo DO Work Phone: Start: 12-28-2024 Antibody screen Josiah bustamante DO Work Phone: Start: 12-28-2024 ALL TYPE AND SCREEN Cor ey Amadeo DO Work Phone: Start: 12-22-2024 MLR HEMOGLOBIN A1C Jodee y Amadeo DO Work Phone: Start: 12-22-2024 End: 12-22-2024 Urnls dip stick/tablet rgnt non-auto w/o micrscp Josiah Childs DO Work Phone: Start: 01-23-2024 Blood count [...] POC URINALYSIS DIPSTICK,AUTO - RALS Elisa Kasey Cacchio MD Work Phone: Start: 01-16-2023 CBC W Auto Different ial panel - Blood Ej العراقيt STAFFING MANAGER Work Phone: Start: 01-16-2023 Comprehensive metabo lic panel Ej العراقيt STAFFING MANAGER Work Phone: Start: 01-16-2023 Lipid panel Ej Renae guerrero STAFFING MANAGER Work Phone: Start: 08-25-2022 Iadna chlamydia trac homatis amplified probe tq Ej Bairdsinceret STAFFING MANAGER Work Phone: Start: 08-25-2022 VAGINITIS PATHOGENS BY PCR Ej Bairdross STAFFING MANAGER Work Phone: Start: 07-21-2022 CBC W Auto Different ial panel - Blood Ej العراقيt STAFFING MANAGER Work Phone: Start: 07-21-2022 Comprehensive metabo lic panel Ej العراقيt STAFFING MANAGER Work Phone: Start: 07-21-2022 Hepatitis c antibody Va jonas العراقيkristal STAFFING MANAGER Work Phone: Start: 07-21-2022 Hiv combination assay V min العراقيkristal STAFFING MANAGER Work Phone: Start: 07-21-2022 Adult depression scr eening assessment Ej Rhiannon STAFFING MANAGER Work Phone: Plan of Treatment Date Care Activity Detail Author Start: 01-17-2028 Lipid panel Cholesterol Sc reening (Lipid Panel) [facility] Start: 07-21-2027 Lipid panel Cholesterol Sc reening (Lipid Panel) [facility] Start: 08-25-2025 Screening for malign ant neoplasm of cervix Cervical Cancer Screening: Pap Smear [facility] Start: 06-28-2025 End: 06-28-2025 Patient encounter procedure 06/28/2025 9:50 AM EDT Routine [facility] [address] [place] [address] [place] [address] Quincy Roebrts, STAFFING MANAGER [address] [place] [address] [facility] Start: 06-22-2025 End: 06-22-2026 CULTURE, GROUP B STREP WITH SUSCEPTIBLITY CULTURE, GROUP B STREP WITH SUSCEPTIBLITY Lab Routine Third trimester ([facility]) Expected: 06/22/2025, Expires: 06/22/2026 [facility] Work Phone: Comment on above: Expected: 06/22/2025 , Expires: 06/22/2026 Start: 06-22-2025 End: 06-22-2025 Patient encounter procedure [facility] Comment on above: Arrived Start: 06-08-2025 End: 06-08-2025 Patient encounter procedure 06/08/2025 2:50 PM EDT Routine [facility] [address] [place] [phone] Quincy Roberts, STAFFING MANAGER [address] [place] [address] [facility] Start: 05-24-2025 End: 05-24-2025 Patient encounter procedure 05/24/2025 10:20 AM EDT Routine [facility] [address] [address] Ernestine López PA [address] [place] [address] [facility] Start: 05-10-2025 End: 05-10-2025 Patient encounter procedure 05/10/2025 2:40 PM EDT Routine [facility] [address] [address] Josiah Childs DO [address] [place] [address] [facility] Start: 05-10-2025 End: 05-10-2025 Professional / ancillary services management 05/10/2025 2:00 PM EDT Ancillary Procedure [facility] [address] [phone] [facility] Start: 05-08-2025 Influenza vaccination N [facility] Start: 04-26-2025 End: 04-26-2026 Measurement of glucose 3 hours after glucose challenge for glucose tolerance test Glucose tolerance, 3 hours Lab Routine Elevated glucose tolerance test Expected: 04/26/2025 (Approximate), Expires: 04/26/2026 [facility] Work Phone: Comment on above: Expected: 04/26/2025 (Approximate), Expires: 04/26/2026 Start: 04-26-2025 End: 08-26-2025 US for US OB follow up transabdominal approach Imaging Routine size inconsistent with dates ([facility]) Expected: 04/26/2025, Expires: 08/26/2025 [facility] Comment on above: Expected: 04/26/2025 , Expires: 08/26/2025 Start: 04-26-2025 End: 04-26-2025 Patient encounter procedure 04/26/2025 11:10 AM EDT Routine [facility] [address] [place] [phone] Josiah Childs DO [address] [place] [address] [facility] Start: 04-10-2025 End: 04-10-2026 CBC panel - Blood by Automated count CBC Lab Routine Diabetes mellitus screening Expected: 04/10/2025 (Approximate), Expires: 04/10/2026 [facility] Work Phone: Comment on above: Expected: 04/10/2025 (Approximate), Expires: 04/10/2026 Start: 04-10-2025 End: 04-10-2026 Measurement of glucose 1 hour after glucose challenge for glucose tolerance test Glucose tolerance, 1 hour Lab Routine Diabetes mellitus screening Expected: 04/10/2025 (Approximate), Expires: 04/10/2026 [facility] Comment on above: Expected: 04/10/2025 (Approximate), Expires: 04/10/2026 Start: 03-30-2025 End: 03-30-2025 Patient encounter procedure 03/30/2025 9:40 AM EDT Routine [facility] [address] [place] [place] [phone] Josiah Childs DO [address] [place] [address] [facility] Start: 03-02-2025 End: 03-02-2025 Patient encounter procedure 03/02/2025 10:20 AM EDT Routine [facility] [address] [place] [phone] Ernestine López PA [address] [place] [address] [facility] Start: 03-02-2025 End: 03-02-2025 Professional / ancillary services management 03/02/2025 9:00 AM EDT Ancillary Procedure [facility] [address] [facility] [place] [place] [phone] [facility] Start: 02-02-2025 End: 03-05-2025 [...] AM EDT Routine [facility] [address] [facility] [address] [place] [address] Josiah Childs DO [address] [place] [address] [facility] Start: 12-22-2024 End: 12-22-2025 ABO/Rh ABO/Rh Lab Routine Missed menses , unspecified gestational age Expected: 12/22/2024 (Approximate), Expires: 12/22/2025 [facility] Comment on above: Expected: 12/22/2024 (Approximate), Expires: 12/22/2025 Start: 12-22-2024 End: 12-22-2025 Blood type and Indirect antibody screen panel - Blood Type and screen Lab Routine Missed menses , unspecified gestational age Expected: 12/22/2024 (Approximate), Expires: 12/22/2025 [facility] Work Phone: Comment on above: Expected: 12/22/2024 (Approximate), Expires: 12/22/2025 Start: 12-22-2024 End: 12-22-2025 Drugs of abuse panel - Urine by Screen method Rapid drug screen, urine Lab Routine , unspecified gestational age Encounter for supervision of normal first in first trimester Expected: 12/22/2024 (Approximate), Expires: 12/22/2025 [facility] Comment on above: Expected: 12/22/2024 (Approximate), Expires: 12/22/2025 Start: 07-21-2023 Adolescent depressio n screening assessment Depression Screening [facility] Start: 07-21-2023 Social Influencers o f Health Screening Social Influencers of Health Screening [facility] Start: 07-10-2023 End: 07-10-2023 Patient encounter procedure 07/10/2023 Office Visit Family Medicine Ej Burk, STAFFING MANAGER [address] [place] [phone] [facility] Start: 01-19-2023 End: 01-19-2023 Patient encounter procedure 01/19/2023 Office Visit Family Medicine Ej Burk, JAZMIN [address] [place] [phone] [facility] Start: 08-25-2022 End: 08-25-2022 Patient encounter procedure 08/25/2022 Office Visit Family Medicine Ej Burk, JAZMIN [address] [place] [phone] [facility] Start: 07-14-2022 Screening for Chlamy miroslava trachomatis Gonorrhea/Chlamydia Screening [facility] Start: 10-07-2021 COVID-19 Vaccine (4 - Booster for Pfizer series) COVID-19 Vaccine (4 - Booster for Pfizer series) [facility] Start: 08-29-2018 DTaP,Tdap,and Td Vaccines (7 - Td or Tdap) DTaP,Tdap,and Td Vaccines (7 - Td or Tdap) [facility] Start: 2018 Screening for malign ant neoplasm of cervix Cervical Cancer Screening: Pap Smear [facility] Bacteria identified in Urine by Culture Urine culture Microbiology Routine Missed menses Ordered: 12/22/2024 [facility] Comment on above: Ordered: 12/22/2024 CBC W Auto Different ial panel - Blood CBC and differential Lab Routine Missed menses , unspecified gestational age Ordered: 12/22/2024 [facility] Comment on above: Ordered: 12/22/2024 CHLAMYDIA TRACHOMATI S (GENITO/STI) CHLAMYDIA TRACHOMATIS (GENITO/STI) Lab Routine STD exposure Ordered: 01/05/2025 [facility] Comment on above: Ordered: 01/05/2025 CHLAMYDIA TRACHOMATI S (GENITO/STI) CHLAMYDIA TRACHOMATIS (GENITO/STI) Lab Routine Vaginal discharge Ordered: 04/26/2025 [facility] [place] Comment on above: Ordered: 04/26/2025 Cytology Cervical or vaginal smear or scraping study Pap Smear Pathology and Cytology Routine Well woman exam with routine gynecological exam Ordered: 01/05/2025 [facility] [place] Work Phone: Comment on above: Ordered: 01/05/2025 Cytology report of Cervical or vaginal smear or scraping Cyto stain.thin prep Pap smear Pathology and Cytology Routine Encounter for gynecological examination without abnormal finding Screening for cervical cancer 08/25/2022 11:59 AM EST [facility] Hemoglobin A1c/Hemoglobin.total in Blood Hemoglobin A1c Lab Routine Missed menses , unspecified gestational age Ordered: 12/22/2024 [facility] Comment on above: Ordered: 12/22/2024 Hepatitis B virus surface Ag [Presence] in Serum or Plasma by Immunoassay Hepatitis B surface antigen Lab Routine Missed menses , unspecified gestational age Ordered: 12/22/2024 [facility] Comment on above: Ordered: 12/22/2024 Hepatitis C virus Ab [Presence] in Serum or Plasma by Immunoassay Hepatitis C antibody Lab Routine Missed menses , unspecified gestational age Ordered: 12/22/2024 [facility] Comment on above: Ordered: 12/22/2024 HIV-1/HIV-2 antigen/antibody combination immunoassay HIV-1 and HIV-2 antibodies Lab Routine Missed menses , unspecified gestational age Ordered: 12/22/2024 [facility] Comment on above: Ordered: 12/22/2024 End: 08-26-2023 Human papilloma virus DNA [Presence] in Unspecified specimen by Probe with signal amplification HPV with reflex genotype Lab Routine Encounter for gynecological examination without abnormal finding Screening for STD (sexually transmitted disease) Screening for cervical cancer 1 Occurrences starting 08/26/2022 until 08/26/2023 [facility] Work Phone: Comment on above: 1 Occurrences starti ng 08/26/2022 until 08/26/2023 Human papilloma viru s DNA [Presence] in Unspecified specimen by Probe with signal amplification HPV with reflex genotype Lab Routine Encounter for gynecological examination without abnormal finding Screening for STD (sexually transmitted disease) Screening for cervical cancer 08/25/2022 11:58 AM EST [facility] Neisseria gonorrhoea e DNA [Presence] in Unspecified specimen by CARLI with probe detection Neisseria gonorrhea DNA probe, direct Lab Routine STD exposure Ordered: 01/05/2025 [facility] Comment on above: Ordered: 01/05/2025 Neisseria gonorrhoea e DNA [Presence] in Unspecified specimen by CARLI with probe detection Neisseria gonorrhea DNA probe, direct Lab Routine Vaginal discharge Ordered: 04/26/2025 [facility] Comment on above: Ordered: 04/26/2025 Reagin Ab [Presence] in Serum by RPR RPR Lab Routine Missed menses , unspecified gestational age Ordered: 12/22/2024 [facility] Comment on above: Ordered: 12/22/2024 Rubella antibody, IgG Rubella an tibody, IgG Lab Routine Missed menses , unspecified gestational age Ordered: 12/22/2024 [facility] Comment on above: Ordered: 12/22/2024 SURESWAB(R) ADVANCED VAGINITIS PLUS, TMA SURESWAB(R) ADVANCED VAGINITIS PLUS, TMA Pathology and Cytology Routine Vaginal discharge Ordered: 01/05/2025 [facility] Comment on above: Ordered: 01/05/2025 SURESWAB(R) ADVANCED VAGINITIS PLUS, TMA SURESWAB(R) ADVANCED VAGINITIS PLUS, TMA Pathology and Cytology Routine Vaginal discharge Ordered: 04/26/2025 [facility] Comment on above: Ordered: 04/26/2025 Immunizations Immunization Date Immunization Notes Care Provider [facility] 01-22-2024 diphtheria, tetanus toxoids and acellular pertussis vaccine, unspecified formulation Frankie Artis MD Work Phone: [facility] 01-22-2024 measles, mumps and r ubella virus vaccine Frankie Artis MD Work Phone: [facility] 01-22-2024 varicella zoster imm une globulin Frankie Artis MD Work Phone: [facility] 07-21-2022 influenza, injectabl e, quadrivalent, preservative free Ej Burk NP Work Phone: [facility] 07-21-2022 influenza virus vacc ine, unspecified formulation Noms Nurse [facility] 06-20-2020 influenza, injectabl e, quadrivalent, preservative free Ej Neuhart STAFFING MANAGER Work Phone: [facility] 06-22-2019 influenza, injectabl e, quadrivalent, preservative free Ej Neuhart STAFFING MANAGER Work Phone: [facility] 11-08-2015 meningococcal polysaccharide (groups A, C, Y and W-135) diphtheria toxoid conjugate vaccine (MCV4P) Ej Neuhart STAFFING MANAGER Work Phone: [facility] 08-28-2010 human papilloma viru s vaccine, quadrivalent Ej Neuhart STAFFING MANAGER Work Phone: [facility] 10-08-2009 hepatitis A vaccine, pediatric/adolescent dosage, 2 dose schedule Ej Neuhart STAFFING MANAGER Work Phone: [facility] 10-08-2009 human papilloma viru s vaccine, quadrivalent Ej Neuhart STAFFING MANAGER Work Phone: [facility] 10-08-2009 influenza virus vacc ine, live, attenuated, for intranasal use Ej Neuhart STAFFING MANAGER Work Phone: [facility] 08-29-2008 human papilloma viru s vaccine, quadrivalent Ej Neuhart STAFFING MANAGER Work Phone: [facility] 08-29-2008 influenza, seasonal, injectable Ej Neuhart STAFFING MANAGER Work Phone: [facility] 08-29-2008 meningococcal polysaccharide (groups A, C, Y and W-135) diphtheria toxoid conjugate vaccine (MCV4P) Je Neuhart STAFFING MANAGER Work Phone: [facility] 08-29-2008 tetanus toxoid, redu macho diphtheria toxoid, and acellular pertussis vaccine, adsorbed Ej Neuhart STAFFING MANAGER Work Phone: [facility] 05-30-2008 hepatitis A vaccine, pediatric/adolescent dosage, 2 dose schedule Ej Neuhart STAFFING MANAGER Work Phone: [facility] 05-30-2008 hepatitis B vaccine, pediatric or pediatric/adolescent dosage Ej Neuhart STAFFING MANAGER Work Phone: [facility] 05-30-2008 varicella virus vaccine Lisa ssa Neuhart STAFFING MANAGER Work Phone: [facility] 02-17-2003 diphtheria, tetanus toxoids and acellular pertussis vaccine, unspecified formulation Ej Neuhart STAFFING MANAGER Work Phone: [facility] 02-17-2003 measles, mumps and r ubella virus vaccine Ej Neuhart STAFFING MANAGER Work Phone: [facility] 02-17-2003 poliovirus vaccine, inactivated Ej Neuhart STAFFING MANAGER Work Phone: [facility] 02-01-1999 diphtheria, tetanus toxoids and acellular pertussis vaccine, unspecified formulation Ej Neuhart STAFFING MANAGER Work Phone: [facility] 02-01-1999 haemophilus influenz ae type b vaccine, conjugate unspecified formulation Ej Neuhart STAFFING MANAGER Work Phone: [facility] 02-01-1999 trivalent poliovirus vaccine, live, oral Ej Neuhart STAFFING MANAGER Work Phone: [facility] 11-02-1998 measles, mumps and r ubella virus vaccine Ej Neuhart STAFFING MANAGER Work Phone: [facility] 08-10-1998 measles, mumps and r ubella virus vaccine Ej Neuhart STAFFING MANAGER Work Phone: [facility] 08-10-1998 varicella virus vaccine Lisa ssa Neuhart STAFFING MANAGER Work Phone: [facility] 01-31-1998 diphtheria, tetanus toxoids and acellular pertussis vaccine, unspecified formulation Ej Neuhart STAFFING MANAGER Work Phone: [facility] 01-31-1998 haemophilus influenz ae type b vaccine, conjugate unspecified formulation Ej Neuhart STAFFING MANAGER Work Phone: [facility] 1997 diphtheria, tetanus toxoids and acellular pertussis vaccine, unspecified formulation Ej Neuhart STAFFING MANAGER Work Phone: [facility] 1997 haemophilus influenz ae type b vaccine, conjugate unspecified formulation Ej Neuhart STAFFING MANAGER Work Phone: [facility] 1997 poliovirus vaccine, inactivated Ej Neuhart STAFFING MANAGER Work Phone: [facility] 1997 diphtheria, tetanus toxoids and acellular pertussis vaccine, unspecified formulation Ej Neuhart STAFFING MANAGER Work Phone: [facility] 1997 haemophilus influenz ae type b vaccine, conjugate unspecified formulation Ej Neuhart STAFFING MANAGER Work Phone: [facility] 1997 poliovirus vaccine, inactivated Ej Neuhart STAFFING MANAGER Work Phone: [facility] 1997 hepatitis B vaccine, pediatric or pediatric/adolescent dosage Ej Neuhart STAFFING MANAGER Work Phone: [facility] 1997 hepatitis B vaccine, pediatric or pediatric/adolescent dosage Ej Neuhart STAFFING MANAGER Work Phone: [facility] Payers Date Payer Category Payer Private Health Insurance [id number] 2024 Private Health Insurance [id number] 2024 Medicaid [id number] 2024 Medicaid [id number] 2022 Unknown [id number] 2022 Unknown [id number] 2022 Blue Cross Blue Shield [place] ([place] ANTHEM [facility] [id number] 2022-Present [address] [place] [address] [id number] 2022 [facility] [id number] 2000 Medicare [id number] 1997 Unknown [id number] 93 1997 Unknown [id number] 93 1997 Unknown [id number] 2.16.840.1.000486.3.579.2.1 143 1997 Unknown [id number] 2.16.840.1.543723.3.579.2.1 143 1997 Unknown [id number] 2.16.840.1.083940.3.579.2.1 143 1997 Unknown [id number] 2.16.840.1.901330.3.579.2.9 03 1997 Unknown [id number] 2.16.840.1.162677.3.579.2.9 00 1997 Unknown [id number] 2.16.840.1.586451.3.579.2.1 259 1997 Unknown [id number] 2.16.840.1.488963.3.579.2.1 259 1997 Unknown [id number] 2.16.840.1.090041.3.579.2.1 259 1997 Unknown [id number] 2.16.840.1.666249.3.579.2.1 259 1997 Unknown [id number] 2.16.840.1.917750.3.579.2.1 259 1997 Unknown [id number] 2.16.840.1.158403.3.579.2.1 259 1997 Unknown [id number] 2.16.840.1.804265.3.579.2.1 259 1997 Unknown [id number] 2.16.840.1.500380.3.579.2.1 259 1997 Unknown [id number] 2.16.840.1.876708.3.579.2.1 259 1997 Unknown [id number] 2.16.840.1.864878.3.579.2.1 259 1997 Unknown [id number] 2.16.840.1.362501.3.579.2.1 259 1997 Unknown [id number] 2.16.840.1.211874.3.579.2.1 259 1997 Unknown [id number] 2.16.840.1.933933.3.579.2.1 259 1959 Unknown [id number] Social History Date Type Detail Facility Start: 07-21-2022 End: 08-27-2023 Tobacco smoking status MIIS Never smoked tobacco [facility] Start: 07-21-2022 End: 08-27-2023 Tobacco use and exposure Smokeless tobacco non-user [facility] Start: 07-21-2022 End: 01-16-2023 Alcohol intake Current drinker of alcohol (finding) [facility] Start: 07-21-2022 Alcohol Comment Occasional only [facility] Start: 1997 Sex Assigned At Not on file T [facility] Start: 07-10-2022 End: 01-16-2023 Exposure to SARS-CoV-2 (event) Not sure [facility] Start: 01-22-2024 Alcohol intake Ex-drinker (finding) [facility] Start: 08-27-2023 End: 01-21-2024 History of Social function [facility] Start: 08-27-2023 End: 01-21-2024 [facility] Utilities [facility] Has the electric, [employer], oil, or water [employer] threatened to shut off services in your home in past 12Mo No [facility] (I/We) worried wheth er (my/our) food would run out before (I/we) got money to buy more. Never true [facility] Start: 11-19-2022 In the past 12 month s, has lack of transportation kept you from medical appointments or from getting medications? 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 [facility] Start: 10-27-2024 [facility] Start: 11-19-2022 Sexual orientation Bisexual (finding ) [facility] Goals Date Patient Goal Desired Activity /State Personal health goal Clinical Notes 07-21-2022 to 06-22-2025 KELL George - 06/22/2025 10:50 AM EDCharlotte Roberts NP - 06/08/2025 2:50 PM KELL Hendrix - 05/24/2025 10:20 AM Aliyah Pleitez LPN - 05/10/2025 2:40 PM EDTDischarge Instr - Other Orders Note Date & Type Note Facility 06-22-2025 History of Presen t illness Narrative Reason [...] Noted H/O pre-eclampsia in prior , currently ([facility]) 04/10/2025 History of induced hypertension 04/10/2025 [...] Vitals: Estimated body mass index is 39.18 kg/m as calculated from the following: Height as of 01/31/22: 5' 3 . Weight as of this encounter: 221 lb 3.2 oz. BP: 120/76 Patient's last menstrual period was 10/13/2024. ASSESSMENT & PLAN ICD-10-CM 1. Third trimester ([facility]) Z34.93 CULTURE, GROUP B STREP WITH SUSCEPTIBLITY CULTURE, GROUP B STREP WITH SUSCEPTIBLITY 2. 36 weeks gestation of ([facility]) Z3A.36 POCT urinalysis dipstick manually resulted [...] pertinent surgical history. documented in this encounter [facility] 06-08-2025 History of Presen t illness Narrative Reason [...] Noted H/O pre-eclampsia in prior , currently ([facility]) 04/10/2025 History of induced hypertension 04/10/2025 [...] nursing note reviewed. Exam conducted with a digital product manager present. Vitals: Estimated body mass index is 38.79 kg/m as calculated from the following: Height as of 01/31/22: 5' 3 . Weight as of this encounter: 219 lb. BP: 120/70 Patient's last menstrual period was 10/13/2024. ASSESSMENT & PLAN ICD-10-CM 1. 34 weeks gestation of ([facility]) Z3A.34 POCT urinalysis dipstick manually resulted 2. Third trimester ([facility]) Z34.93 POCT urinalysis dipstick manually resulted 3. Heartburn during in third trimester ([facility]) O26.893 R12 4. H/O pre-eclampsia in prior , currently ([facility]) O09.299 Return OB: Patient presents today [...] week for routine OB appointment. Documented by Quincy Roberts NP on behalf of: Quincy Roberts NP documented in this encounter [facility] 05-24-2025 History of Presen t illness Narrative Reason [...] Noted H/O pre-eclampsia in prior , currently ([facility]) 04/10/2025 History of induced hypertension 04/10/2025 [...] No family history on file. SURGICAL HISTORY No past surgical history on file. REVIEW OF SYSTEMS Review of Systems: Review [...] reviewed. Vitals: Estimated body mass index is 38.31 kg/m as calculated from the following: Height as of 01/31/22: 5' 3 . Weight as of this encounter: 216 lb 4 oz. BP: 110/60 Patient's last menstrual period was 10/13/2024. ASSESSMENT & PLAN ICD-10-CM 1. Third trimester ([facility]) Z34.93 POCT urinalysis dipstick manually resulted 2. 31 weeks gestation of ([facility]) Z3A.31 3. Heartburn during in third trimester ([facility]) O26.893 omeprazole (PriLOSEC) [address] capsule R12 Return OB: Patient presents today for a routine obstetrics appointment. Patient is currently 31w6d . Patient states she is doing well [...] week for routine OB appointment. Documented by KELL George on behalf of: KELL George documented in this encounter [facility] 05-10-2025 History of Presen t illness Narrative Reason [...] Noted H/O pre-eclampsia in prior , currently ([facility]) 04/10/2025 History of induced hypertension 04/10/2025 [...] No family history on file. SURGICAL HISTORY No past surgical history on file. REVIEW OF SYSTEMS Review of Systems: Review [...] nursing note reviewed. Exam conducted with a digital product manager present. Vitals: Estimated body mass index is 38.17 kg/m as calculated from the following: Height as of 01/31/22: 5' 3 . Weight as of this encounter: 215 lb 8 oz. BP: 122/64 Patient's last menstrual period was 10/13/2024. ASSESSMENT & PLAN ICD-10-CM 1. Third trimester ([facility]) Z34.93 POCT urinalysis dipstick manually resulted 2. 29 weeks gestation of ([facility]) Z3A.29 Return OB: Patient presents today for a routine obstetrics appointment. Patient is currently 29w6d . Patient states she is doing well but has complaints of being tired due to current . Patient has verbalizes frequent movement. labor precautions was discussed/given and patient was instructed to perform kick counts three times a day. Pt has complaints of heartburn rx for omeprazole. Orders Placed This Encounter Procedures POCT urinalysis dipstick manually resulted Follow Up: Patient is to return to office in 2 week for routine OB appointment. Documented by Aretha Pleitez LPN on behalf of: Josiah Childs DO documented in this encounter [facility] 04-26-2025 History of Presen t illness Narrative Reason for Appointment: Patient ID: Deirdre Yusuf is a 29 y.o. female who presents for No chief complaint on file. Patient presents today for Return OB appointment. [...] Noted H/O pre-eclampsia in prior , currently ([facility]) 04/10/2025 History of induced hypertension 04/10/2025 [...] appearance. She is well-developed. Genitourinary: Vulva normal. Cardiovascular: Rate and Rhythm: Normal rate and [...] nursing note reviewed. Exam conducted with a digital product manager present. Vitals: Estimated body mass index is 37.87 kg/m as calculated from the following: Height as of 01/31/22: 5' 3 . Weight as of this encounter: 213 lb 12.8 oz. BP: 120/60 Patient's last menstrual period was 10/13/2024. ASSESSMENT & PLAN ICD-10-CM 1. 27 weeks gestation of ([facility]) Z3A.27 POCT urinalysis dipstick manually resulted 2. Second trimester ([facility]) Z34.92 POCT urinalysis dipstick manually resulted 3. History of induced hypertension Z87.59 4. H/O pre-eclampsia in prior , currently ([facility]) O09.299 5. Elevated glucose tolerance test R73.09 Glucose tolerance, 3 hours Glucose tolerance, 3 hours 6. Vaginal discharge N89.8 SURESWAB(R) ADVANCED VAGINITIS PLUS, TMA CHLAMYDIA TRACHOMATIS (GENITO/STI) Neisseria gonorrhea DNA probe, direct Return OB: Patient presents today for a routine obstetrics appointment. Patient is currently 27w6d . Patient states she is doing well but has complaints of being tired due to current . Patient has verbalizes frequent movement. labor precautions was discussed/given and patient was instructed to perform kick counts three times a day. Pt given three hour glucose to have obtained. Pt has complaints of yeast infection. Rx for terconazole faxed to pharmacy. Orders Placed This Encounter Procedures Glucose tolerance, 3 hours CHLAMYDIA TRACHOMATIS (GENITO/STI) Neisseria gonorrhea DNA probe, direct POCT urinalysis dipstick manually resulted Follow Up: Patient is to return to office in 2 week for routine OB appointment. Documented by Aretha Pleitez LPN on behalf of: Josiah Childs DO documented in this encounter [facility] 04-10-2025 History of Presen t illness Narrative [...] Noted H/O pre-eclampsia in prior , currently ([facility]) 04/10/2025 History of induced hypertension 04/10/2025 [...] nursing note reviewed. Exam conducted with a digital product manager present. Vitals: Estimated body mass index is 37.73 kg/m as calculated from the following: Height as of 01/31/22: 5' 3 . Weight as of this encounter: 213 lb. BP: 118/72 Patient's last menstrual period was 10/13/2024. ASSESSMENT & PLAN ICD-10-CM 1. Second trimester ([facility]) Z34.92 POCT urinalysis dipstick manually resulted 2. 25 weeks gestation of ([facility]) Z3A.25 3. History of induced hypertension Z87.59 4. H/O pre-eclampsia in prior , currently ([facility]) O09.299 5. Diabetes mellitus screening Z13.1 [...] glucose order to obtain and schedule at [facility]. PVU instructions prior to getting labs drawn. Pt had repeat anatomy US done this morning. Orders Placed This Encounter Procedures CBC Glucose tolerance, 1 hour POCT urinalysis dipstick manually resulted Follow Up: Patient is to return to office in 3 week for routine OB appointment. Documented by Kiki Gaspar MA on behalf of: Quincy Roberts NP documented in this encounter [facility] 03-02-2025 History of Presen t [...] ASSESSMENT & PLAN ICD-10-CM 1. Second trimester ([facility]) Z34.92 POCT urinalysis dipstick manually resulted 2. 20 weeks gestation of ([facility]) Z3A.20 POCT urinalysis dipstick manually resulted Return [...] of: KELL George documented in this encounter [facility] 02-02-2025 History of Presen t [...] nursing note reviewed. Exam conducted with a digital product manager present. Vitals: Estimated body mass index is [...] of: KELL George documented in this encounter [facility] 01-05-2025 History of Presen t [...] nursing note reviewed. Exam conducted with a digital product manager present. Vitals: Estimated body mass index is [...] or undercooked meat, and stay away from [facility]. Patient has been consulted regarding any [...] Josiah Childs DO documented in this encounter [facility] 12-22-2024 History of Presen t [...] Anes PTL Lv 2 Current 1 Term 05/17/24 40w1d / 03:20 8 lb 1.8 oz [...] or undercooked meat, and stay away from [facility]. Patient has also been advised to [...] [place] LPN documented in this encounter [facility] 01-24-2024 Obstetrics Note NICU pumping [...] States she has pump for home use. [facility] 01-24-2024 Miscellaneous Notes NICU pumping consult [...] Arrived to offer support. Baby is with front office secretary at this time. Deirdre states baby has been latching but is sometimes sleepy. Discussed waking techniques and breat compressions to keep baby active at breast. She states she pumped once since baby was sleepy. She would like to observe pumping to verify flange size. [...] pushed to deliver right shoulder and body. gave cry with stimulation, Cord clamped and [...] good candidate for another vaginal delivery. Female [place] G1 now [id number] Debbi Perea MD FIRE PREVENTION SPECIALIST [facility] Vaginal Delivery Note Diagnosis: Principal Problem: Mother's Information Delivery Blood Loss 01/21/24 1232 - 01/22/24 0111 Quantitative Blood Loss - Delivery (mL) Hospital Encounter 976 mL Total 976 mL García Yusuf [[id number]] Delivery Anesthesia Method: Epidural Operative Delivery Forceps [...] well Maternal Response Comments: Right shoulder stuck Bells Presentation Presentation: Vertex Position: Left _: Occiput _: Anterior Information date/time: 01/22/2431 Gender: Female Delivery type: Vaginal, Spontaneous Delivery location: OB Unit Provider Present: Indication Initial disposition: Routine NB Care ?: No Details: Delivery Providers Other personnel: Provider Role Covering Attending Resident Manager Non Profit Delivery Nurse Registered Nurse Delivery Assist Gabriela Augustin CNP Nurse Practitioner Cord Cord blood obtained?: No Cord segment obtained?: Yes Gases sent?: Yes Stem cell collection (by Provider)?: No Placenta Date/time: 01/22/202435 Removal: Spontaneous Appearance: Intact Bells Apgars Living status: Living Scoring Cole: 0 [...] variability, present accels, one small variable decels. [place] q1-4min. Category II Petr Knowles MD 01/21/24 [...] 01/20/24 11:54 PM documented in this encounter [facility] 01-24-2024 History of Presen t illness Narrative Spiritual Care Progress Note Completed by: Susy Reyes Person(s) Present During this Visit: Patient Not Available Time Spent in Direct Patient Care: 15 Narrative: This retail product demo specialist provided introductory visit during pastoral care rounds. Patient unavailable for visit. Family not present at time of visit. Core Extruder left card with information regarding pastoral care services, 30/03 availability, and how to contact a retail product demo specialist. Pastoral Care team will remain available to support patient and family PRN. Patients Response to Pastoral Care: Other (see comment) Planning for Future Visits: PRN 01/24/24 0900 Visit Background Visit With Patient Not Available Visit By Traveling Crane Operator Visit Progression Introduction Visit Requested By Core Extruder Initiated Visit Source Core Extruder Initiated Visit Type Rounding Visit Circumstances and Events Routine Visit Visit Length (minutes) 15 Patient's Response to Pastoral Care Other (see comment) Visit Planning PRN Spiritual Assessment Unable to Assess during this visit Zoroastrian Assessment Unable to Assess during this visit Family assessment provided? Unable to asess during this visit Susy Reyes MDiv Traveling Crane Operator, Pastoral Care [facility] [phone] Anesthesia Progress Note Assessment / Plan In [...] trial of labor documented in this encounter [facility] 01-24-2024 Hospital DischNazia Caicedo RN - 01/24/2024 7:59 AM EDT For [...] that first appeared in late 2018 in [facility] [place]. The COVID-19 virus has since been carried [...] at least 20 seconds. Use an alcohol-based guitar maker if soap and water are not available. [...] someone from isolation is made on a uoyl-ts-mugf basis by doctors, infection prevention and control [...] if I was swabbed to be tested? [facility] is following strict testing criteria for [...] plasma donor at [email or web address] or call 2-640-FRGCara TherapeuticsCROSS ( ). For more information, please visit the CDC website at https://www.cdc.gov/coronavirus /2019-nCoV/index.html. Information is constantly changing as we learn more about this disease. Check back with the website frequently for updates The following attachments cannot be sent through Care Everywhere. (Uzbek) Care: Vaginal : Baby in NICU (Uzbek): Vaginal Delivery (Uzbek)documented in this encounter [facility] 01-23-2024 Obstetrics Note This note was [...] to discharge. - will follow up 01/23 [facility] 01-23-2024 Obstetrics Note This note was copied from a baby's chart. Arrived to offer support. Baby is with front office secretary at this time. Deirdre states baby has [...] this afternoon for assistance with direct . [facility] 01-23-2024 Hospital course Narrative 28 YO P1 WHO UNDERWENT FAVD WITH UNREMARKABLE COURSE documented in this encounter [facility] 01-23-2024 Note PPD 1 PT SLEEPING COMFORTABLY TALKED WITH FOB REPORTS NO ISSUE AFEB VSS ABD APPROPRIATE A/P DOING WELL PP D 1 DISCHARGE TOMORROW DISCUSSED FOLLOW UP PLANS IN LIGHT OF SIGNIFICANT BLOOD LOSS WITH DELIVERY REPEAT H/H TODAY AUTHENTICATED BY FRANKIE ARTIS, ON 01/23/2024 05:59:02 [facility] 01-22-2024 Obstetrics Note This note was copied from a baby's chart. LC stopped by patient's room to offer support, however mother was asleep at this time. [facility] 01-22-2024 Note Formatting of this n ote might be different from the original. MIV infiltrated. PIV removed. Pt refused restart [facility] 01-22-2024 Note Vaginal Delivery Pro mark [...] AUTHENTICATED BY SANDHYA RAMOS, ON 01/22/2024 08:17:04 [facility] 01-22-2024 Note Bedside to evaluate Marci balloon. Fundus firm at U. No vaginal bleeding around the Marci device. Suprapubic pressure applied Marci removed without difficulty. Fundus firm at U -1. Vaginal bleeding minimal. AUTHENTICATED BY PETR KNOWLES, ON 01/22/2024 03:05:44 [facility] 01-22-2024 Labor and deliver y summary note [...] candidate for another vaginal delivery. Female infant [place] G1 now P1001 Debbi Perea MD FIRE PREVENTION SPECIALIST [facility] Vaginal Delivery Note Diagnosis: Principal Problem: Mother's Information Delivery Blood Loss 01/21/24 1232 - 01/22/24 0111 Quantitative Blood Loss - Delivery (mL) Hospital Encounter 976 mL Total 976 mL Paramjit, Baby Girl Deirdre [[id number]] Delivery Anesthesia Method: Epidural Operative Delivery Forceps [...] of bed lowered Head of bed lowered: 01/22/2024 003 Performed by: Elizabeth Camacho Maternal response: Tolerated well Maternal Response Comments: Right shoulder stuck Bells Presentation Presentation: Vertex Position: Left _: Occiput _: Anterior Bells Information date/time: 01/22/2431 Gender: Female Delivery type: Vaginal, Spontaneous Delivery location: OB Unit Provider Present: Indication Initial disposition: Routine NB Care ?: No Details: Delivery Providers Other personnel: Provider Role Covering Attending Resident Manager Non Profit Delivery Nurse Registered Nurse Delivery Assist Gabriela Augustin CNP Nurse Practitioner Cord Cord blood obtained?: No Cord segment obtained?: Yes Gases sent?: Yes Stem cell collection (by Provider)?: No Placenta Date/time: 01/22/202435 Removal: Spontaneous Appearance: Intact Bells Apgars Living status: Living Scoring Cole: 0 [...] No data filed Other Procedures Procedures: None Plum Work Phone: 01-21-2024 Note Cx 6/c/-2 Well applied Fht cat 1 Continue trial of labor AUTHENTICATED BY FRANKIE BONE, ON 01/21/2024 10:04:42 [facility] 01-21-2024 Note Formatting of this n ote [...] variability, present accels, one small variable decels. [place] q1-4min. Category II Petr Knowles MD 01/21/24 4:03 AM T [facility] 01-21-2024 History and physical note HISTORY [...] James Foley MD 01/21/2024 12:39 AM T [facility] 01-21-2024 Note HISTORY AND PHYSICAL UPDATE [...] AUTHENTICATED BY JAMES FOLEY, ON 01/21/2024 00:40:36 [facility] 01-21-2024 History and physical note HISTORY AND [...] 01/21/2024 12:39 AM documented in this encounter [facility] 01-20-2024 Note Formatting of this n [...] attending. Samantha Simeon DO 01/20/24 11:54 PM [facility] Work Phone: 01-16-2023 History of Presen t illness Narrative Deirdre, thank you for selecting [facility] for your health care needs. Thank you [...] Final No Organisms Detected Test Performed at: [email or web address] [address] [place] [address] [place] [address] Bree Baker MD, PhD Comment: 08/25/2022 TNP Final Fleece Tier: 08/25/2022 SEE NOTE Final Screener PALAK CT(ASCP) [...] been evaluated with computer assisted technology. Review Fleece Tier: 08/25/2022 [facility] Final Pathologist: 08/25/2022 [facility] Final Physical Exam: Physical Exam Vitals and nursing note reviewed. Constitutional: General: She is not in acute distress. Appearance: Normal appearance. She is not ill-appearing. HENT: Head: Normocephalic and atraumatic. Right Ear: External ear normal. Left Ear: External ear normal. Nose: Nose normal. Mouth/Throat: Lips: [place]. Comments: Mask in place during examination. Eyes: [...] Patient Instructions Deirdre, thank you for selecting [facility] for your health care needs. Thank you [...] Ej Burk NP documented in this encounter [facility] 08-25-2022 History of Presen t illness Narrative Deirdre, thank you for selecting [facility] for your health care needs. Thank you [...] Patient Instructions Deirdre thank you for selecting [facility] for your health care needs. Thank you [...] Ej Burk NP documented in this encounter [facility] 07-21-2022 History of Presen t illness Narrative Deirdre, thank you for selecting [facility] for your health care needs. Thank you [...] Meseret (Fexofenadine) are the most commonly used hyns-dca-jakkjkz allergies/antihistamine medications. You may also benefit from [...] pain bilaterally since she began working the [employer]. Also reports a history of allergies with [...] Administered Influenza, injectable, quadrivalent, preservative free 07/21/2022 Pfizer SARS-CoV-2 COVID-19, mRNA, LNP-S, preservative free [...] ear normal. Nose: Nose normal. Mouth/Throat: Lips: [place]. Comments: Mask in place during examination. Eyes: [...] Patient Instructions Deirdre, thank you for selecting [facility] for your health care needs. Thank you [...] Meseret (Fexofenadine) are the most commonly used klnm-kif-nzcfdpf allergies/antihistamine medications. You may also benefit from [...] Ej Burk NP documented in this encounter [facility] Evaluation note Diagnosis Allergic rhinitis, unspecified seasonality, unspecified trigger- Primary Pain in both upper extremities Adult general medical examination Unspecified general medical examination Need for influenza vaccination Need for prophylactic vaccination and inoculation against influenza [facility] Diagnosis Encounter for gynecological examination without abnormal finding- Primary Screening for STD (sexually transmitted disease) Screening for cervical cancer Screening for malignant neoplasm of the cervix [facility] Diagnosis Allergic rhinitis, unspecified seasonality, unspecified trigger [facility] Diagnosis Adult general medical examination- Primary Unspecified general medical examination Bipolar 1 disorder ([facility]) Seasonal allergies Allergic rhinitis, cause unspecified [facility] Diagnosis - Primary state, incidental [facility] Diagnosis Missed menses , unspecified gestational age Encounter for supervision of normal first in first trimester BV (bacterial vaginosis) Unspecified vaginitis and vulvovaginitis documented in this encounter [facility] HealthcareEvaluation note* Diagnosis First trimester state, incidental 12 weeks gestation of Nausea and vomiting, unspecified vomiting type Well woman exam with routine gynecological exam Routine gynecological examination Vaginal discharge Leukorrhea, not specified as infective STD exposure documented in this encounter [facility] HealthcareEvaluation note* Diagnosis 16 weeks gestation of Second trimester state, incidental Screening, , for anatomic survey Encounter for anatomic survey documented in this encounter [facility] HealthcareEvaluation note* Diagnosis Second trimester ([facility]) state, incidental 20 weeks gestation of ([facility]) documented in this encounter [facility] HealthcareEvaluation note* Diagnosis Second trimester ([facility]) state, incidental 25 weeks gestation of ([facility]) History of induced hypertension H/O pre-eclampsia in prior , currently ([facility]) Diabetes mellitus screening Screening for diabetes mellitus documented in this encounter [facility] HealthcareEvaluation [facility]* Diagnosis 27 weeks gestation of ([facility]) Second trimester ([facility]) state, incidental History of induced hypertension H/O pre-eclampsia in prior , currently ([facility]) Elevated glucose tolerance test Impaired glucose tolerance test Vaginal discharge Leukorrhea, not specified as infective size inconsistent with dates ([facility]) Yeast infection documented in this encounter [facility] HealthcareEvaluation note* Diagnosis Third trimester ([facility]) state, incidental 29 weeks gestation of ([facility]) Heartburn during in third trimester ([facility]) documented [facility] encounter [facility]* Diagnosis Third trimester ([facility]) state, incidental 31 weeks gestation of ([facility]) Heartburn during in third trimester ([facility]) documented in [facility] encounter [facility]* Diagnosis 34 weeks gestation of ([facility]) Third trimester ([facility]) state, incidental Heartburn during in third trimester ([facility]) H/O pre-eclampsia in prior , currently ([facility]) documented [facility]* Diagnosis Third trimester ([facility]) state, incidental 36 weeks gestation of ([facility]) documented in this encounter [facility] Healthcare[facility]* Attachments The following attachments cannot be sent through Care Everywhere. * Wrist: Exercises (Uzbek) [facility] (narrative)* Consultation (Routine) - Authorized Specialty Diagnoses / Procedures Referred By Jovita giraldo Referred To Contact Psychiatry Diagnoses Bipolar 1 disorder ([facility]) Ej Burk, JAZMIN [address] [place] [address] Referral ID Status Reason Start Date Expiration Date Visits Requested Visits Authorized [id number] Authorized Specialty Services Required 01/16/2023 01/16/2024 1 1 [facility] Summary Purpose Family History No Family History Records FoundNo Family History Records FoundNo Family History Records FoundNo Family History Records FoundNo Family History Records FoundNo Family History Records Found Advance Directives Date Activated Date Inactivated Comments 01/22/2024 5:02 AM 01/24/2024 6:06 PM Date Activated Date Inactivated Comments 01/22/2024 12:48 AM 01/22/2024 3:31 AM Date Activated Date Inactivated Comments 01/20/2024 8:58 PM 01/22/2024 12:48 AM Additional Source Comments INFORMATION SOURCE (unrecogn ized section and content) DATE CREATED AUTHOR 03/30/2020 [facility] DATE CREATED AUTHOR AUTHOR'S ORGANIZ ATION 08/28/2021 [facility] Me dical Specialist DATE CREATED AUTHOR AUTHOR'S ORGANIZ ATION 01/19/2023 [facility] [place] DATE CREATED AUTHOR AUTHOR'S ORGANIZ ATION 08/29/2023 [facility] DATE CREATED AUTHOR AUTHOR'S ORGANIZ ATION 08/02/2024 [facility] DATE CREATED AUTHOR AUTHOR'S ORGANIZ ATION 06/13/2025 [facility] dical Specialists EPIC Reason for Visit [...] Expiration Date Visits Re quested Visits Authorized [id number] 1 1 Reason Comments Amenorrhea Reason Comments [...] Care Teams (unrecognized sec tion and content) Warp Dresser Relationship Specialty Start Date End Date Ej Burk NP [address] [place] [phone] PCP - General Family Medicine 07/15/22 Warp Dresser Relationship Specialty Start Date End Date Ej Burk NP [address] [place] [phone] PCP - General Family Medicine 07/15/22 Warp Dresser Relationship Specialty Start Date End Date Ej Burk NP [address] [place] [phone] PCP - General Family Medicine 07/15/22 Warp Dresser Relationship Specialty Start Date End Date Ej Burk NP [address] [place] [phone] PCP - General Family Medicine 07/15/22 Warp Dresser Relationship Specialty Start Date End Date Ej Burk CNP [address] [place] [address] PCP - General 01/13/24 Warp Dresser Relationship Specialty Start Date End Date Unallocated, MD Tello Shepherd [facility] [place] [address] PCP - General Family Medicine 01/25/24 Warp Dresser Relationship Specialty Start Date End Date Unallocated, MD Tello Shepherd [facility] [place] [address] PCP - General Family Medicine 01/25/24 Warp Dresser Relationship Specialty Start Date End Date Unallocated, MD Tello Shepherd [facility] [place] [address] PCP - General Family Medicine 01/25/24 Warp Dresser Relationship Specialty Start Date End Date Unallocated, Pilo Waller MD [facility] [address] [place] [facility] [place] [address] PCP - General Family Medicine 01/25/24 Warp Dresser Relationship Specialty Start Date End Date Unallocated, Pilo Waller MD [facility] [address] [place] [place] [address] PCP - General Family Medicine 01/25/24 Warp Dresser Relationship Specialty Start Date End Date Unallocated, Pilo Waller MD [facility] [address] [place] [place] [address] PCP - General Family Medicine 01/25/24 Warp Dresser Relationship Specialty Start Date End Date Unallocated, Pilo Waller MD [facility] [address] [place] [place] [address] PCP - General Family Medicine 01/25/24 Warp Dresser Relationship Specialty Start Date End Date Unallocated, Pilo Waller MD [facility] [address] [place] [place] [address] PCP - General Family Medicine 01/25/24 Warp Dresser Relationship Specialty Start Date End Date Unallocated, Pilo Waller MD [facility] [place] [address] PCP - General Family Medicine 01/25/24 Warp Dresser Relationship Specialty Start Date End Date Unallocated, Pilo Waller MD [facility] [address] [place] [facility] [place] [address] PCP - General Family Medicine 01/25/24 Warp Dresser Relationship Specialty Start Date End Date Unallocated, [place] [address] PCP - General Family Medicine 01/25/24 Warp Dresser Relationship Specialty Start Date End Date Unallocated, [place] Provider, [address] [place] [address] PCP - General Family Medicine 01/25/24 Scheduled Active and Recently Administ ered Medications (unrecognized section and content) Medication Order 01/22/2024 01/23/2024 01/24/2024 ferrous sulfate tablet 325 mg 325 mg, Oral, Daily with breakfast, First dose on Thu01/22/24 at 0800 0957 (Given - Provider: Ayah Briceño, TARYN) 0906 (Given - Provider: Mindy Mendoza RN) 0900 (Given - Provider: Nazia Herbert, TARYN) ibuprofen (ADVIL,MOTRIN) tablet 600 mg 600 mg, [...] Ally Austin, TARYN)1153 (Given - Provider: Mindy Mendoza RN)1744 (Given - Provider: Geam Christian RN) 0017 (Given - Provider: Ally Austin RN)0600 (Given - Provider: Ally Austin, TARYN)1250 (Given - Provider: Nazia Herbert, TARYN) Continuous Medication Order 01/22/2024 01/23/2024 01/24/2024 ROPivacaine [...] mild pain, Starting on Thu01/22/24 at 0502, 0957 (Given - Provider: Ayah Briceño, TARYN) aluminum-magnesium hydroxide-simethicone (MAALOX PLUS) 200-200-20 mg/5 mL suspension 30 mL 30 mL, Oral, Every 4 hours PRN, indigestion, Starting on Thu01/22/24 at 0502, carboprost (HEMABATE) injection 250 mcg [...] CHEW. 0957 (Given - Provider: Ayah Briceño, RN)2102 (Given - Provider: Mima Sosa, RN) 0906 (Given - Provider: Mindy Mendoza, RN) 0017 (Given - Provider: Ally Austin, TARYN)1250 (Given - Provider: Nazia Herbert RN) HYDROmorphone (DILAUDID) injection 0.5 mg (COMPLETED) 0.5 mg, Intravenous, Once as needed, Pain Associated with Hemorrhage Management., Starting on Thu01/20/24 at 2057, For 1 dose, Labor & Delivery 0208 (Given - Provider: Claudia Bah RN) HYDROmorphone [...] via tube. 0309 (Given - Provider: Claudia Bah, TARYN) loperamide (IMODIUM) capsule 2 mg 2 mg, [...] indicated, administer prior to discharge. Provide [facility] vaccine information sheet(s) (VIS) for patient [...] BE BASED ON THE PRIMARY CLINICAL RECORDS. [facility]. provides no warranty or guarantee of the accuracy or completeness of information in this document.
== END 2025-06-22 12:54 | disposition home or self-care (01) ==
LOC: LAB 12:53
PROVIDERS: Visit Provider Physician Assistant
DX: Z34.93 Encounter for supervision of normal pregnancy, unspecified, third trimester (principal)
CPT/HCPCS: 87081

== ENCOUNTER 2025-07-12 22:58 | Inpatient (IN) | payer OTHER, SELFPAY ==
--- OUTSIDE RECORDS SUMMARY | 2024-08-09 12:45 | XMS_ITS | Continuity of Care Document ---
Author Organization [facility] Address [address] [place] [address] Phone Care Team Providers Care Manager Hematology Name Role Phone JacobSandhya Unavailable Unavailable Procedures Procedure Date Estab - Low (20-29) Ph Body Fluid Ex Bld Estab - Low (20-29) Estab - Low (-29) Pp Care Only (separt Proc) Estab - Low (20-29) Ua Dip Stik/tablt;wo Micro Non Routine Ob Care Incl Vag Del Regular Ob Visit Regular Ob Visit Regular Ob Visit Regular Ob Visit Regular Ob Visit Regular Ob Visit Echo-f/u Or Repeat Per Gest. Regular Ob Visit Regular Ob Visit Echo-limited Routine Venipunct/finger/heel Regular Ob Visit Echo-/maternal Eval W/dtl Anatomic Exam Regular Ob Visit Estab Pt Ob - Moderate (30-39) Echo-first Tri<14wks Single- Trans Abdom inal New - Low Complexity (30-44) Urin Pg Test Visual Color Comp Advance Directives Directive Yes / No Effective Date File Name No Information Encounters Encounter Description Practice Location Reason(s) For Visit Diagnoses Date Provider Providers Copied on Encounter Estab - Low () [facility], [address], [place], [place], [address], [place] tel:[phone] [place] No Information Jacob Arthur. [address], [place], [place], [address], [place]. tel:[phone] Estab - Low () [facility], [address], [place], [place], [address], [place] tel:[phone] [place] ([place] No Information Jacob Arthur. [address], [place], [place], [address], [place]. tel:[phone] Estab - Low () [facility], [address], [place], [place], [address], [place] tel:[phone] [facility] No Information Chandra Kumar. [address], [address], [place], [place], [address], [place]. tel:[phone] [facility], [address], [place], [place], [address], [place] tel:[phone] [facility] No Information Cacchio Elisa. [address], [address], [place], [place], [address], [place]. tel:[phone] Estab - Low () [facility], [address], [place], [place], [address], [place] tel:[phone] [place] No Information Cacchio Elisa. [address], [address], [place], [place], [address], [place]. tel:[phone] [facility], [address], [place], [place], [address], [place] tel:[phone] [place] No Information Matthew Werner. [address], [address], [place], [place], [address], [place]. tel:[phone] [facility], [address], [place], [place], [address], [place] tel:[phone] [place] No Information Cacchio Elisa. [address], [address], [place], [place], [address], [place]. tel:[phone] [facility], [address], [place], [place], [address], [place] tel:[phone] [place] No Information Cacchio Elisa. [address], [address], [place], [place], [address], [place]. tel:[phone] [facility], [address], [place], [place], [address], [place] tel:[phone] [place] No Information Cacchio Elisa. [address], [address], [place], [place], [address], [place]. tel:[phone] [facility], [address], [place], [place], [address], [place] tel:[phone] [facility] No Information Cacchio Elisa. [address], [address], [place], [place], [address], [place]. tel:[phone] [facility], [address], [place], [place], [address], [place] tel:[phone] [place] No Information Cacchio Elisa. [address], [address], [place], [place], [address], [place]. tel:[phone] [facility], [address], [place], [place], [address], [place] tel:[phone] [place] No Information Cacchio Elisa. [address], [place], [place], [address], [place]. tel:[phone] [facility], [address], [place], [place], [address], [place] tel:[phone] [place] No Information Cacchio Elisa. [address], [address], [place], [place], [address], [place]. tel:[phone] [facility], [address], [place], [place], [address], [place] tel:[phone] [place] No Information Cacchio Elisa. [address], [place], [place], [address], [place]. tel:[phone] [facility], [address], [place], [place], [address], [place] tel:[phone] [place] No Information Cacchio Elisa. [address], [address], [place], [place], [address], [place]. tel:[phone] [facility], [address], [place], [place], [address], [place] tel:[phone] [place] No Information Cacchio Elisa. [address], [address], [place], [place], [address], [place]. tel:[phone] Estab Pt Ob - Moderate (30-39) [facility], [address], [place], [place], [address], [place] tel:[phone] [place] No Information Emilee Pérez. [address], [address], [place], [place], [address], [place]. tel:[phone] New - Low Complexity (30-44) [facility], [address], [place], [place], [address], [place] tel:[phone] [place] No Information Ron Wheeler. [address], [place], [place], [address], [place]. tel:[phone] Family History Family Member Type Diagnosis Age At Onset No Information Payers Payer name Insurance type Covered libertarian ID [facility](s) [employer] [id number] Social History Type Description Quantity Date Captured Comments Sex Female Smoking Status No Information Chief Complaint And Reason For Visit No Information Reason For Referral Reason For Referral No Information History Of Present Illness Encounter Date Complaint History Of Prese nt Illness No Information Functional Status Date Functional Assessmen t No Information Instructions Date Instruction Additional Infor mation No Information Assessments Type Assessment Date No Information Patient Care Teams Name Effective Dates (start - stop) Status Members No Information
--- OUTSIDE RECORDS SUMMARY | 2025-06-28 08:50 | XMS_ITS | Encounter Summary ---
Author Organization [facility] Address [address] [place] [address] Care Team Providers Care Owner/Photographer Name Role Phone Unallocated, Noms Provider Primary Care [facility] Reason for Visit * ReasonCommentsRoutine Visit Encounter Details DateTypeDepartmentCare Team (Latest Contact Info)Qxldsbhomeh30/22/2025 9:50 AM EDTRoutine [facility] [address] [place] [address] Katarzyna Roberts, JAZMIN [address] [place] [address] 36 weeks gestation of ([facility]); Third trimester ([facility]); Heartburn during in third trimester ([facility]); H/O pre-eclampsia in prior , currently ([facility]) Social History Tobacco UseTypesPacks/DayYears UsedDateSmoking Tobacco: Never Assessed Estimated Date of PxkvngbkWxvqrfqwVdx98/13/2025Based on last menstrual period of 10/13/2024Sex and Gender InformationValueDate RecordedSex Assigned at BirthNot on fileLegal JhjSgibbf54/15/2023 6:51 PM EDTGender CsoljbsnAljuxe49/15/2023 6:51 PM EDTSexual GmxvqqmshsrZqsnrhjy24/15/2023 6:51 PM EDTdocumented as of this encounter Last Filed Vital Signs Vital SignReadingTime TakenCommentsBlood Ddsdsnli393/7810 10:15 AM EDT Pulse--Temperature--Respiratory Rate--Oxygen Saturation--Inhaled Oxygen Concentration--Syvubk956 kg (220 lb 6.4 oz)06/28/2025 10:15 AM EDTHeight--Body Mass Index39.04001/31/2022 12:00 PM EDTdocumented in this encounter Progress Notes * Katarzyna Roberts NP - 06/28/2025 9:50 AM EDT Reason for Appointment: Patient ID: [...] Noted H/O pre-eclampsia in prior , currently ([facility]) 04/10/2025 History of induced hypertension 04/10/2025 Resolved [...] nursing note reviewed. Exam conducted with a doll wigs hackler present. Vitals: Estimated body mass index is 39.04 kg/m?? as calculated from the following: Height as of 01/31/22: 5' 3 . Weight as of this encounter: 220 lb 6.4 oz. BP: 118/78 Patient's last menstrual period was 10/13/2024. Assessment/Plan ICD-10-CM 1. 36 weeks gestation of ([facility]) Z3A.36 POCT urinalysis dipstick manually resulted 2. Third trimester ([facility]) Z34.93 POCT urinalysis dipstick manually resulted 3. Heartburn during in third trimester ([facility]) O26.893 R12 4. H/O pre-eclampsia in prior , currently ([facility]) O09.299 Return OB: Patient presents today for a routine obstetrics appointment. Patient is currently 36w6d . Patient states she is doing well but has complaints of being tired due to current . Patient has verbalizes frequent movement. labor precautions was discussed/given and patient was instructed to perform kick counts three times a day. Orders Placed This Encounter Procedures POCT urinalysis dipstick manually resulted Follow Up: Patient is to return to office in 1 week for routine OB appointment. Documented by Lulu Bagley LPN on behalf of: Katarzyna Roberts NP documented in this encounter Plan of Treatment Not on file documented as of this encounter Goals GoalPatient Goal TypeAssociated ProblemsRecent ProgressPatient-Stated?Author Reminders Care PlanOB RemindersNoOpen Scheduling, Backgrounddocumented as of this encounter Procedures Procedure NamePriorityDate/TimeAssociated DiagnosisCommentsPOCT URINALYSIS PQDQTNPSMxabord29/22/2025 10:19 AM EDT 36 weeks gestation of ([facility]) Third trimester ([facility]) documented in this encounter Results * (ABNORMAL) POCT urinalysis dipstick manually resulted (06/28/2025 10:19 AM EDT)ComponentValueRef RangeTest MethodAnalysis TimePerformed AtPathologist SignatureColor, UAYellowClarity, UAClearGlucose, UANegativeNegative - 2000(110) ++++ mg/dLBilirubin, UANegativeNegative - 4(70) +++ mg/dLKetones, UA NegativeNegative - 160(16) ++++ mg/dLSpec Grav, UA1.0101 - 1.03Blood, UA NegativeNegative - 50 Hernan/mcLpH, UA7.05 - 9Protein, UANegativeNegative - 2000(20) ++++ mg/dLUrobilinogen, UA1.00.2 - 12 mg/dLLeukocytes, UAPositive Negative - 500+++ Deana/mcLNitrite, UANegativeNegative - PositiveSpecimen (Source)Anatomical Location / LateralityCollection Method / VolumeCollection TimeReceived ApwdWnxxn90/22/2025 10:19 AM EDT Narrative Authorizing ProviderResult TypeResult StatusKatarzyna Roberts NPPOINT OF CARE TEST ENTER/EDIT ORDERABLESFinal Result documented in this encounter Visit Diagnoses Diagnosis 36 weeks gestation of ([facility]) Third trimester ([facility]) state, incidental Heartburn during in third trimester ([facility]) H/O pre-eclampsia in prior , currently ([facility]) documented in this encounter Additional Health Concerns Active ProblemsNoted DateDiagnosed DateOB Wwncqvgvf45/20/2025 documented as of this encounter Care Teams Team MemberRelationshipSpecialtyStart DateEnd Date Unallocated, Noms Christin, [address] [address] PCP - [facility]pay[facility]01/25/24documented as of this encounter
--- OUTSIDE RECORDS SUMMARY | 2025-07-06 09:50 | XMS_ITS | Encounter Summary ---
Author Organization [facility] Address [address] [place] [address] Care Team Providers Care Fine Dining Server Name Role Phone Unallocated, Noms Provider Primary Care [facility] Reason for Visit * ReasonCommentsRoutine Visit Encounter Details DateTypeDepartmentCare Team (Latest Contact Info)Ctnuskppuco28/30/2025 10:50 AM EDTRoutine [facility] [place] [facility] [address] [place] [phone] Ernestine López PA [address] [place] [address] Third trimester ([facility]); 38 weeks gestation of ([facility]) Social History Tobacco UseTypesPacks/DayYears UsedDateSmoking Tobacco: Never Assessed Estimated Date of RhuhumveGorrzvktRmk57/13/2025Based on last menstrual period of 10/13/2024Sex and Gender InformationValueDate RecordedSex Assigned at BirthNot on fileLegal VybXgwpyq90/15/2023 6:51 PM EDTGender XpgsamtoNtjwof41/15/2023 6:51 PM EDTSexual TyqcxwwcpycAscgjpvm11/15/2023 6:51 PM EDTdocumented as of this encounter Last Filed Vital Signs Vital SignReadingTime TakenCommentsBlood Ilcwmsmd221/801 11:07 AM EDT Pulse--Temperature--Respiratory Rate--Oxygen Saturation--Inhaled Oxygen Concentration--Xtiysr659 kg (222 lb 6.4 oz)07/06/2025 11:07 AM EDTHeight--Body Mass Index39. 12:00 PM EDTdocumented in this encounter Progress Notes * KELL George - 07/06/2025 10:50 AM EDT Reason for Appointment: Patient [...] Noted H/O pre-eclampsia in prior , currently ([facility]) 04/10/2025 History of induced hypertension 04/10/2025 Resolved [...] reviewed. Vitals: Estimated body mass index is 39.4 kg/m?? as calculated from the following: Height as of 01/31/22: 5' 3 . Weight as of this encounter: 222 lb 6.4 oz. BP: 124/80 Patient's last menstrual period was 10/13/2024. Assessment/Plan ICD-10-CM 1. Third trimester ([facility]) Z34.93 2. 38 weeks gestation of ([facility]) Z3A.38 POCT urinalysis dipstick manually resulted Return OB: Patient presents today for a routine obstetrics appointment. Patient is currently 38w0d . Patient states she is doing well [...] of: KELL George documented in this encounter Plan of Treatment Not on file documented as of this encounter Goals GoalPatient Goal TypeAssociated ProblemsRecent ProgressPatient-Stated?Author Reminders Care PlanOB RemindersNoOpen Scheduling, Backgrounddocumented as of this encounter Procedures Procedure NamePriorityDate/TimeAssociated DiagnosisCommentsPOCT URINALYSIS LCILVZVFHlfthuu54/30/2025 11:08 AM EDT 38 weeks gestation of ([facility]) documented in this encounter Results * POCT urinalysis dipstick manually resulted (07/06/2025 11:08 AM EDT)Component ValueRef RangeTest MethodAnalysis TimePerformed AtPathologist SignatureColor, UAYellowClarity, UAClearGlucose, UANegativeNegative - 1999(110) ++++ mg/dL Bilirubin, UANegativeNegative - 4(70) +++ mg/dLKetones, UANegativeNegative - 160(16) ++++ mg/dLSpec Grav, UA1.0101 - 1.03Blood, UANegativeNegative - 50 Hernan/mcLpH, UA7.05 - 9Protein, UANegativeNegative - 2000(20) ++++ mg/dL Urobilinogen, UA1.00.2 - 12 mg/dLLeukocytes, UANegativeNegative - 500+++ Deana/mcLNitrite, UANegativeNegative - PositiveSpecimen (Source)Anatomical Location / LateralityCollection Method / VolumeCollection TimeReceived Time Urine07/06/2025 11:08 AM EDT Narrative Authorizing ProviderResult TypeResult StatusTaraVista Behavioral Health CenterOINT OF CARE TEST ENTER/EDIT ORDERABLESFinal Result documented in this encounter Visit Diagnoses Diagnosis Third trimester ([facility]) state, incidental 38 weeks gestation of ([facility]) documented in this encounter Additional Health Concerns Active ProblemsNoted DateDiagnosed DateOB Dtabdnluj92/20/2025 documented as of this encounter Care Teams Team MemberRelationshipSpecialtyStart DateEnd Date Unallocated, Noms Provider, [address] [place] [address] PCP - GeneralFamily Medicine01/25/24documented as of this encounter
--- OUTSIDE RECORDS SUMMARY | 2025-07-12 23:03 | XMS_ITS | Encounter Summary ---
Author Organization [facility] Address [address] [place] [address] Care Team Providers Care Ortho Tech Name Role Phone Unallocated, Noms Provider Primary Care [facility] Encounter Details DateTypeDepartmentCare Team (Latest Contact Info)Ajqqebxdvfa45/24/2025Patient Outreach [facility] [address] [place] [address] Ernestine Martin, WELDING PANTOGRAPH OPERATOR [address] [place] [address] Social History Tobacco UseTypesPacks/DayYears UsedDateSmoking Tobacco: Never Assessed Estimated Date of XvpmetadWgvwkmwkZos87/13/2025Based on last menstrual period of 10/13/2024Sex and Gender InformationValueDate RecordedSex Assigned at BirthNot on fileLegal SemIrnafz52/15/2023 6:51 PM EDTGender ZszhbrhiFgwbfx43/15/2023 6:51 PM EDTSexual LorlqdondgfZgedhark33/15/2023 6:51 PM EDTdocumented as of this encounter Plan of Treatment Not on file documented as of this encounter Goals GoalPatient Goal TypeAssociated ProblemsRecent ProgressPatient-Stated?Author Reminders Care PlanOB RemindersNoOpen Scheduling, Backgrounddocumented as of this encounter Visit Diagnoses Not on filedocumented in this encounter Additional Health Concerns Active ProblemsNoted DateDiagnosed DateOB Jbyxorddf49/20/2025 documented as of this encounter Care Teams Team MemberRelationshipSpecialtyStart DateEnd Date Unallocated, Noms Provider, [address] [place] [address] PCP - GeneralFamily Medicine01/25/24documented as of this encounter
--- OUTSIDE RECORDS SUMMARY | 2025-07-12 23:03 | XMS_ITS | Clinical Summary ---
Author Organization [facility] Address [address] [place] [address] Care Team Providers Care Clothes Wringer Name Role Phone Unallocated, [facility] Provider Primary Care Provi layo Allergies Active AllergyReactionsCriticalityNoted DateCommentsAmoxicillinHives,Itching, HodnEtw3207/27/2017 Other Reaction(s): hives FluconazoleHives,JdbvPvu4406/22/2021 Other Reaction(s): GI upset, lip swelling Pinfjpyowma77/17/2025 Other Reaction(s): Unknown Medications MedicationSigDispense QuantityRefillsLast FilledStart DateEnd DateStatus Vit-Fe Fumarate-FA ( Vitamins) 28-0.8 MG tablet Indications:, unspecified gestational age ([facility]),Encounter for supervision of normal first in first trimester ([facility])Take 1 tablet by mouth Daily 30 tablet /54247912/22/2025ctive levocetirizine (Xyzal) 5 MG tablet Take 5 mg by mouth in the eveningActive omeprazole (PriLOSEC) [address] capsule Indications:Heartburn during in third trimester ([facility])Take 1 capsule (20 mg) by mouth in the morning. Take before meals. Do not crush or chew. 30 capsule 5005/24/2026ctive Active Problems ProblemNoted DateDiagnosed DateH/O pre-eclampsia in prior , currently ([facility])04/10/2025History of induced texngonnesoi02/04/2025 Estimated Date of PurcjyasKpwfteqeYjo62/13/2025ased on last menstrual period of 10/13/2024 Encounters DateTypeDepartmentCare JkykBbhzoxtdwgw55/30/2025 10:50 AM EDTRoutine [facility] [address] [place] [address] Ernestine López PA Third trimester ([facility]); 38 weeks gestation of ([facility])07/06/2025amboo flowsheet [facility] [address] [place] [address] Ernestine López PA 06/30/2025Patient Outreach [facility] [address] [place] [address] Ernestine Martin LPN 06/30/2025bstract [place] [id number] [place] [address] Ernestine Martin LPN 06/28/2025 9:50 AM EDTRoutine [facility] aSthish [facility] [address] [place] [address] Katarzyna Roberts NP 36 weeks gestation of ([facility]); Third trimester ([facility]); Heartburn during in third trimester ([facility]); H/O pre-eclampsia in prior , currently ([facility])06/28/2025 Bamboo flowsheet [facility] [address] [place] [address] Katarzyna Roberts NP 06/22/2025 10:50 AM EDTRoutine [facility] [address] [place] [address] Ernestine López PA Third trimester ([facility]); 36 weeks gestation of ([facility])06/22/2025amboo flowsheet [facility] [address] [place] [address] Ernestine López PA 5Abstract [facility] [place] [facility] [address] [place] [address] Josiah Childs DO 06/08/2025 2:50 PM EDTRoutine [facility] [address] [place] [address] Katarzyna Roberts, JAZMIN 34 weeks gestation of ([facility]); Third trimester ([facility]); Heartburn during in third trimester ([facility]); H/O pre-eclampsia in prior , currently ([facility])06/08/2025 Bamboo flowsheet [facility] [place] [facility] [address] [place] [address] Katarzyna Roberts NP 05/24/2025 10:20 AM EDTRoutine [facility] [place] [facility] [address] [place] [address] Ernestine López PA Third trimester ([facility]); 31 weeks gestation of ([facility]); Heartburn during in third trimester ([facility])05/24/2025amboo flowsheet [facility] [place] [facility] [address] [place] [address] Ernestine López PA 05/10/2025 2:40 PM EDTRoutine [facility] [address] [place] [address] Josiah Childs DO Third trimester ([facility]); 29 weeks gestation of ([facility]); Heartburn during in third trimester ([facility])05/10/2025 2:00 PM EDT Ancillary Procedure [facility] [place] [facility] [address] [place] [address] size inconsistent with dates ([facility])5Clinisync Result Encounter [facility] External Department Unsolicited Josiah Childs, DO 04/26/2025 11:10 AM EDTRoutine [facility] [place] [address] Josiah Childs, DO 27 weeks gestation of ([facility]); Second trimester ([facility]); History of induced hypertension; H/O pre-eclampsia in prior , currently ([facility]); Elevated glucose tolerance test; Vaginal discharge; size inconsistent with dates ([facility]); Yeast ilpeguupz10/20/2025amboo flowsheet [facility] [place] [address] Josiah Childs, DO 5Clinisync Result Encounter [facility] External Department Unsolicited Katarzyna Roberts NP 04/19/2025bstract [facility] [place] [address] Josiah Childs, DO 04/14/2025bstract [facility] [place] [address] Elizabeth Weeks MA from Last 3 Months Social History Tobacco UseTypesPacks/DayYears UsedDateSmoking Tobacco: Never Assessed Estimated Date of IkwacnyhOaelahazXaw15/13/2025Based on last menstrual period of 10/13/2024Sex and Gender InformationValueDate RecordedSex Assigned at BirthNot on fileLegal SysHnkadh21/15/2023 6:51 PM EDTGender XhgaxjfcVbvccb17/15/2023 6:51 PM EDTSexual CygunqqwzoeFbyterjc74/15/2023 6:51 PM EDT Last Filed Vital Signs Vital SignReadingTime TakenCommentsBlood Lxrwpzrt165/8010/ 11:07 AM EDT Pulse--Temperature--Respiratory Rate--Oxygen Saturation--Inhaled Oxygen Concentration--Kgshbe684 kg (222 lb 6.4 oz)07/06/2025 11:07 AM IETFutqua491 cm (5' 3 )01/31/2022 12:00 PM EDTBody Mass Index39. 12:00 PM EDT Plan of Treatment Health MaintenanceDue DateLast DoneCommentsCOVID-19 Vaccine ( season) , 12/19/2020, 11/27/2020Influenza Vaccine (#1)2025 07/21/2022, 06/20/2020, 06/22/2019, Additional history existsPneumococcal Vaccine: Pediatrics (0 to 5 Years) and At-Risk Patients (6 to 64 Years)Aged Out No longer eligible based on patient's age to complete this topic Goals GoalPatient Goal TypeAssociated ProblemsRecent ProgressPatient-Stated?Author Reminders Care PlanOB RemindersNoOpen Scheduling, Background Procedures Procedure NamePriorityDate/TimeAssociated DiagnosisCommentsPOCT URINALYSIS SVDYPUKMGegfqip55/30/2025 11:08 AM EDT 38 weeks gestation of ([facility]) POCT URINALYSIS EQXQVOHNGhlfkqp32/22/2025 10:19 AM EDT 36 weeks gestation of ([facility]) Third trimester ([facility]) POCT URINALYSIS WUJZWWHFVfcqjrh07/16/2025 11:12 AM EDT 36 weeks gestation of ([facility]) POCT URINALYSIS RHDIHQLQLvadbmi58/02/2025 3:04 PM EDT 34 weeks gestation of ([facility]) Third trimester ([facility]) POCT URINALYSIS SASQKBXHTqmzywb07/17/2025 10:35 AM EDT Third trimester ([facility]) POCT URINALYSIS GOGUURWIMdbiojd57/03/2025 2:45 PM EDT Third trimester ([facility]) US OB FOLLOW UP TRANSABDOMINAL YTCBRPAADggirdt61/03/2025 2:21 PM EDT size inconsistent with dates ([facility]) GLUCOSE TOLERANCE 3 TARRTrkiwwe10/22/2025 7:38 AM EDT RECURRENT VAGINITIS (HTRX)Xtysmgn4204/26/2025 12:16 PM EDT POCT URINALYSIS OOCLOFUAHckfwwx89/20/2025 11:29 AM EDT 27 weeks gestation of ([facility]) Second trimester ([facility]) ALL CBC WITH AUTO YRCGCpfubtu38/15/2025 11:31 AM EDT GLUCOSE 1 LHZRSkifzlh66/15/2025 11:31 AM EDT from Last 3 Months Results * POCT urinalysis dipstick manually resulted (07/06/2025 11:08 AM EDT) Only the most recent of7 resultswithin the time period is included. ComponentValueRef RangeTest MethodAnalysis TimePerformed AtPathologist Signature Color, UAYellowClarity, UAClearGlucose, UANegativeNegative - 2000(110) ++++ mg/dLBilirubin, UANegativeNegative - 4(70) +++ mg/dLKetones, UANegativeNegative - 160(16) ++++ mg/dLSpec Grav, UA1.0101 - 1.03Blood, UANegativeNegative - 50 Hernan/mcLpH, UA7.05 - 9Protein, UANegativeNegative - 2000(20) ++++ mg/dL Urobilinogen, UA1.00.2 - 12 mg/dLLeukocytes, UANegativeNegative - 500+++ Deana/mcL Nitrite, UANegativeNegative - PositiveSpecimen (Source)Anatomical Location / LateralityCollection Method / VolumeCollection TimeReceived OiglIpzxk02/30/2025 11:08 AM EDT Narrative Authorizing ProviderResult TypeResult StatusBon [facility] TEST ENTER/EDIT ORDERABLESFinal Result * US OB follow up transabdominal approach (05/10/2025 2:21 PM EDT)Anatomical RegionLateralityModalityBodyUltrasoundSpecimen (Source)Anatomical Location / LateralityCollection Method / VolumeCollection TimeReceived Time05/10/2025 3:43 PM EDT Impressions 05/11/2025 7:33 AM EDT 1. Single, live intrauterine , current sonographic age of 29 weeks and 3 days, with an estimated date of delivery of July 23, 2025. 2. Comparison made with prior examination of March 02, 2025 delivery at that time was July 22, 2025, weight by percentile was 53.0% 3. ??LEÓN 19.0 cm. * ??Estimated Weight (g) by Percentile is based upon an accurate estimated age based onlast menstrual period. ?? TRANSCRIBED BY: ? ELECTRONICALLY SIGNED BY: Oseas Martines MD Narrative 05/11/2025 7:33 AM EDT A single, live intrauterine is present with normal cardiac rate of 161 beats per minute. Normal activity and amniotic fluid volume. Amniotic fluid index is 19.0 cm. Morphology is grossly normal. The current sonographic age is 29 weeks and 3 days, based on the following measurements: BPD ? 7.2 cm (28 ??weeks, 6 days) Head Circumference ?27.1cm ( 29 weeks, 4 days) Abdominal Circumference ?24.7cm ( 28 ??weeks, 6 days) Femur Length ? 5.7 cm ( 30 weeks, ??1 days) Presentation ? Cephalic ? Weight (g) by Percentile ??21.6 % * These measurements result in an estimated date of delivery of July 23, 2025. ?? The current estimated weight is 1380 ?? grams ( 3 pound, 1 ??ounces). ?? Procedure Note Oseas Martines MD - 05/11/2025 [...] BY: ELECTRONICALLY SIGNED BY: Oseas Martines MD Authorizing ProviderResult TypeResult StatusCorey Amadeo MATHEW OB US PROCEDURES Final Result * (ABNORMAL) GLUCOSE TOLERANCE 3 HOUR (04/28/2025 7:38 AM EDT)ComponentValueRef RangeTest MethodAnalysis TimePerformed AtPathologist SignatureGLUCOSE TOLERANCE 3 HOUR(H)mg/dLTBHComment: GLU FAST 95H (<95) Col: 04/28/25 0738 GLU 1HR 153 (<180) Col: 04/28/25 0842 GLU 2HR 130 (<155) Col: 04/28/25 0942 GLU 3HR 121 (<140) Col: 04/28/25 1041 Specimen (Source)Anatomical Location / LateralityCollection Method / Volume Collection TimeReceived Time04/28/2025 7:38 AM EDT04/28/2025 7:45 AM EDT Narrative CLINISYNC - 04/28/2025 11:56 AM EDT Authorizing ProviderResult TypeResult StatusCorey Amadeo DOLAB BLOOD ORDERABLES Final ResultPerforming OrganizationAddressCity/State/ZIP CodePhone Number CLINIS[facility]NC [facility] * RECURRENT VAGINITIS (HTRX) (04/26/2025 12:16 PM EDT)ComponentValueRef Range Test MethodAnalysis TimePerformed AtPathologist SignatureATOPOBIUM VAGINAE0 19.961 - 24.689 ppm04/27/2025 6:13 AM EDTHealthTrackRx at LabPortATOPOBIUM VAGINAENot Xdugcxnh01.961 - 24.689 ppm04/27/2025 6:13 AM EDTHealthTrackRx at LabPortBVAB 2,3 (BACTERIAL VAGINOSIS ASSOCIATED BACTERIA 2, 3); MOBILUNCUS SPP 019.961 - 24.689 ppm04/27/2025 6:13 AM EDTHealthTrackRx at LabPortBVAB 2,3 (BACTERIAL VAGINOSIS ASSOCIATED BACTERIA 2, 3); MOBILUNCUS SPPNot Detected 19.961 - 24.689 ppm04/27/2025 6:13 AM EDTHealthTrackRx at LabPortCANDIDA ALBICANS, PARAPSILOSIS, YSRIWJSBZX813.000 - 30.347 ppm04/27/2025 6:13 AM EDT [facility] LabPortCANDIDA ALBICANS, PARAPSILOSIS, TROPICALISNot Detected 23.000 - 30.347 ppm04/27/2025 6:13 AM EDTHealthTrackRx at LabPortCANDIDA HBOKWTPL547.000 - 31.618 ppm04/27/2025 6:13 AM EDTHealthTrackRx at LabPort MARTHA GLABRATANot Qfynusba50.000 - 31.618 ppm04/27/2025 6:13 AM EDT [facility] at LabPortCANDIDA WTQOPB400.000 - 30.873 ppm04/27/2025 6:13 AM EDTHealthTrackRx at LabPortCANDIDA KRUSEINot Zqxrroum23.000 - 30.873 ppm 04/27/2025 6:13 AM EDTHealthTrackRx at LabPortCHLAMYDIA GITAXFPEEHG159.000 - 31.586 ppm08/ 6:13 AM EDTHealthTrackRx at LabCommunity HospitalCHLAMYDIA TRACHOMATIS Not Rcoclpgm51.000 - 31.586 ppm04/27/2025 6:13 AM EDTHealthTrackRx at LabPort GARDNERELLA STJSRNQQT724.961 - 24.689 ppm04/27/2025 6:13 AM EDTHealthTrackRx at LabPortGARDNERELLA VAGINALISNot Psdfytnk62.961 - 24.689 ppm04/27/2025 6:13 AM EDTHealthTrackRx at LabPortMEGASPHAERA (TYPES 1, 2)019.961 - 24.689 ppm 04/27/2025 6:13 AM EDTHealthTrackRx at LabPortMEGASPHAERA (TYPES 1, 2)Not Fupaqmbn87.961 - 24.689 ppm04/27/2025 6:13 AM EDTHealthTrackRx at LabPort NEISSERIA IKYESMRCZNW079.000 - 32.587 ppm04/27/2025 6:13 AM EDTHealthTrackRx at [facility] HospitalNEISSERIA GONORRHOEAENot Bkgvkzcm77.000 - 32.587 ppm04/27/2025 6:13 AM EDTHealthTrackRx at LabPortTRICHOMONAS EOBSCVGGD799.000 - 31.995 ppm 04/27/2025 6:13 AM EDTHealthTrackRx at LabPortTRICHOMONAS VAGINALISNot Ayyzbkgx30.000 - 31.995 ppm04/27/2025 6:13 AM EDTHealthTrackRx at LabPort MYCOPLASMA HBICIJYFMW319.961 - 24.689 ppm04/27/2025 6:13 AM EDTHealthTrackRx at LabPortMYCOPLASMA GENITALIUMNot Uqnutqzq42.961 - 24.689 ppm04/27/2025 6:13 AM EDTHealthTrackRx at LabPortSpecimen (Source)Anatomical Location / LateralityCollection Method / VolumeCollection TimeReceived TimeTissue 04/26/2025 12:16 PM EDT04/27/2025 1:34 AM EDT Narrative Authorizing ProviderResult TypeResult StatusCorey Amadeo DOLAB BLOOD ORDERABLES Final ResultPerforming OrganizationAddressCity/State/ZIP CodePhone Number [facility] [address] [place] [address] * (ABNORMAL) GLUCOSE 1 HOUR (04/21/2025 11:31 AM EDT)ComponentValueRef RangeTest MethodAnalysis TimePerformed AtPathologist SignatureGLUCOSE 1 TNER664(H)<130 mg/dLTBHSpecimen (Source)Anatomical Location / LateralityCollection Method / VolumeCollection TimeReceived Time04/21/2025 11:31 AM EDT04/21/2025 11:32 AM EDT Narrative CLINISYNC - 04/21/2025 12:23 PM EDT Authorizing ProviderResult TypeResult StatusKatarzyna Roberts NPLAB BLOOD ORDERABLESFinal ResultPerforming OrganizationAddressCity/State/ZIP CodePhone Number DWAINNC TB * (ABNORMAL) ALL CBC WITH AUTO DIFF (04/21/2025 11:31 AM EDT)ComponentValueRef RangeTest MethodAnalysis TimePerformed AtPathologist SignatureTBH WBC8.64.0 - 11.0 10 3/uLTBHTBH RBC3.76(L)4.20 - 5.40 10 6/uLTBHTBH HGB11.9(L)12.0 - 16.0 g/dLTBHTBH HCT35.3(L)36.0 - 48.0 %TBHTBH MCV93.981.0 - 99.0 fLTBHTBH MCH31.6 26.7 - 34.0 pgTBHTBH MCHC33.729.9 - 35.2 g/dLTBHTBH RDW13.611.0 - 15.0 %TBHTBH NWC130820 - 450 10 3/uLTBHTBH MPV10.19.5 - 13.5 fLTBHNEUTROPHILS PERCENT AUTO 82.1(H)43.0 - 75.0 %TBHLYMPHOCYTES PERCENT AUTO10.4(L)20.5 - 60.0 %TBH MONOCYTES PERCENT AUTO6.41.7 - 12.0 %TBHTBH EO %0.8(L)0.9 - 7.0 %TBHBASOPHILS PERCENT AUTO0.1(L)0.2 - 2.0 %TBHIMMATURE GRANULOCYTES PCT AUTO0.20.0 - 0.5 % TBHNEUTROPHILS ABSOLUTE AUTO7.1(H)1.4 - 6.5 10 3/uLTBHLYMPHOCYTES ABSOLUTE AUTO0.9(L)1.2 - 3.8 10 3/uLTBHMONOCYTES ABSOLUTE AUTO0.60.3 - 0.8 10 3/uLTBH TBH EO #0.10.0 - 0.7 10 3/uLTBHBASOPHILS ABSOLUTE AUTO0.00.0 - 0.1 10 3/uLTBH IMMATURE GRANULOCYTES ABS AUTO0.020.00 - 0.03 10 3/uLTBHSpecimen (Source) Anatomical Location / LateralityCollection Method / VolumeCollection Time Received Time04/21/2025 11:31 AM EDT04/21/2025 11:32 AM EDT Narrative CLINISYNC - 04/21/2025 12:42 PM EDT Authorizing ProviderResult TypeResult StatusKristina Alejandra NPCLINISYNCFinal ResultPerforming OrganizationAddressCity/State/ZIP CodePhone Number CLINISYNC [facility] from Last 3 Months Additional Health Concerns Active ProblemsNoted DateDiagnosed DateOB Xhyvafwac29/20/2025 Insurance Care Teams Team MemberRelationshipSpecialtyStart DateEnd Date Unallocated, N[facility] Provider, [address] [place], [place] [id number] PCP - GeneralFamily Medicine01/25/24
--- OUTSIDE RECORDS SUMMARY | 2025-07-12 23:03 | XMS_ITS | Encounter Summary ---
Author Organization [facility] Address [address] [place] [address] Care Team Providers Care Tea Room Manager Name Role Phone Unallocated, N[facility] Provider Primary Care [facility] Encounter Details DateTypeDepartmentCare Team (Latest Contact Info)Pjbhdmzpcrf58/22/2025Bamboo flowsheet [facility] [place] [facility] [address] [address] Katarzyna Roberts, EMBLEM MAKER [address] [place] [address] Social History Tobacco UseTypesPacks/DayYears UsedDateSmoking Tobacco: Never Assessed Estimated Date of YuxbadbjVrhjwldgElz03/13/2025Based on last menstrual period of 10/13/2024Sex and Gender InformationValueDate RecordedSex Assigned at BirthNot on fileLegal ZwwIlcnqb11/15/2023 6:51 PM EDTGender JyzxbuvzBqqwpk34/15/2023 6:51 PM EDTSexual RnntvqihhbtUewcunvw80/15/2023 6:51 PM EDTdocumented as of this encounter Plan of Treatment Not on file documented as of this encounter Goals GoalPatient Goal TypeAssociated ProblemsRecent ProgressPatient-Stated?Author Reminders Care PlanOB RemindersNoOpen Scheduling, Backgrounddocumented as of this encounter Visit Diagnoses Not on filedocumented in this encounter Additional Health Concerns Active ProblemsNoted DateDiagnosed DateOB Ofyptiecg16/20/2025 documented as of this encounter Care Teams Team MemberRelationshipSpecialtyStart DateEnd Date Unallocated, N[facility] Provider, [address] [place] [address] PCP - GeneralFamily Medicine01/25/24documented as of this encounter
--- OUTSIDE RECORDS SUMMARY | 2025-07-12 23:03 | XMS_ITS | CCD ---
Author Organization [facility] ion [facility] Care Team Providers Care Tube Filler Name Role Phone ORSALEE LR Admitting Unavailable ROSALEE LR Attending Unavailable ROSALEE LR Consulting Unavailable TIMMIHERIBERTO Nicholas Admitting Unavailable TIMHERIBERTO CARLOS Attending Unavailable MISC, DOCTOR Primary Care Unavailable TIMMIS HERIBERTO Consulting Unavailable WYATT CURRAN Consulting Unavailable Neuhart SUPERVISOR ALUM PLANT, Ej Primary Care Provider Neuross SUPERVISOR ALUM PLANT, Ej Primary Care Provider EJ BURK Attending Unavailable NEUHART, EJ Primary Care Unavailable NEUEJ HAWKINS Attending Unavailable NEUHART, EJ Primary Care Unavailable NEUHART, EJ Primary Care Unavailable NEUROSS EJ Attending Unavailable PAMELA WILLIAM Attending Unavailabl e NO, PHYSICIAN Primary Care Unavailable Neuhart Ej BANGURA Primary Care Provider [phone] FRANKIE ARTIS Attending Unavailab JAMES Muñoz Admitting Unavailable NO, PHYSICIAN Primary Care Unavailable FT [facility], GENERIC C onsulting Unavailable Unallocated MD, Noms Provider Primary Care Provi layo QUINCY ROBERTS Attending Unavailable RENE, ERNESTINE Attending Unavailable RENE, ERNESTINE Attending Unavailable RENE, ERNESTINE Attending Unavailable AMADEO, JOSIAH Referring Unavailable RENE, ERNESTINE Attending Unavailable AMADEO, JOSIAH Attending Unavailable ALEJANDRA, QUINCY Attending Unavailable AMADEO, JOSIAH Attending Unavailable AMADEO, JOSIAH Attending Unavailable ALEJANDRA, QUINCY Attending Unavailable RENE, ERNESTINE Attending Unavailable Allergies Allergy ClassificationReported Allergen(s)Allergy TypeDate of OnsetReaction(s) Facility (20 sources)Amoxicillin; Translations: [AMOXICILLIN]Drug Avllitw60-16-0803Hwuye, Itching, RashTr[facility] Health (6 sources)Fluconazole; Translations: [FLUCONAZOLE]Drug Dghhzgg66-05-4944Hpat, HivesTrinity Health Work Phone: (20 sources)FluconazoleAllergy to doobujuna94-50-8307Ukxix, RashNOMS Healthcare (20 sources)OctacosanolDrug Nwhaksfmopa30-27-3625[facility] Medications Current Medications MedicationDrug Class(es)DatesSig (Normalized)Sig (Original)cetirizine hydrochloride 10 mg oral tablet (11 sources)Histamine-1 Receptor AntagonistStart: 56-94-2048rjaqptplwc (ZYRTEC) 10 MG tabletStart: 07-21-2022 End: 91-65-0917kuyx 1 tablet by mouth once dailycetirizine (ZyrTEC) 10 mg tablet Indications: Allergic rhinitis, unspecified seasonality, unspecified trigger Take 1 tablet (10 mg total) by mouth 1 (one) time each day if needed for allergies. 90 tablet 3 11/24/2022 Activefluticasone propionate 0.05 mg/actuat metered dose nasal spray (4 sources)CorticosteroidStart: 07-21-2022 End: 87-85-9933rpou 2 spray(s) nasal route once dailyfluticasone propionate (FLONASE) 50 mcg/actuation nasal spray Indications: Allergic rhinitis, unspec ified seasonality, unspecified trigger Administer 2 sprays into each nostril 1 (one) time each day.Shake gently. Before first use, prime pump. After use, clean tip and replace cap. 30 mL 3 07/21/2022 07/21/2023 ActivehydrOXYzine hydrochloride 50 mg oral tablet (4 sources)AntihistamineStart: 55-56-5924betbNYGjpxw HCL (ATARAX) 50 mg tablet levocetirizine dihydrochloride 5 mg oral tablet (20 sources)Histamine-1 Receptor Antagonisttake 1 tablet by mouth in the evening levocetirizine (Xyzal) 5 MG tablet Take 5 mg by mouth in the evening Active metroNIDAZOLE 0.0075 mg/mg vaginal gel (4 sources)Nitroimidazole AntimicrobialStart: 12-26-2024 End: 37-09-4457qmsueHELHPBGZ (Metrogel) 0.75 % vaginal gel Indications: BV (bacterial vaginosis) Insert into the vagina Daily for 5 days 70 g 12/26/2024 12/31/2024 ActiveStart: 12-22-2024 End: 99-97-3957kyfb 1 tablet by mouth in the morningmetroNIDAZOLE (Flagyl) 500 MG tablet Indications: BV (bacterial vaginosis) Take 1 tablet (500 mg) by mouth in the morning and 1 tablet (500 mg) before bedtime. Do all this for 7 days. 14 tablet 12/22/2024 12/29/2024 Activeomeprazole 20 mg delayed release oral capsule (19 sources)Proton Pump InhibitorStart: 05-10-2025 End: 42-15-8737jsdp 1 capsule by mouth before mealtimeomeprazole (PriLOSEC) [address] capsule Indications: Heartburn during in third trimester ([facility]) Take 1 capsule (20 mg) by mouth in the morning. Take before meals. Do not crush or chew. 30capsule 11 05/24/2025 05/24/2026 Active prenat.vits,raina,whb-yszv-xlvsu Tab (2 sources)prenat.vits,raina,ohr-wscc-alruh Tab Take by mouth . 0 Active prenat.vits,raina,nsi-ruef-wkghm Tab Take by mouth . 0Prenatal Vit-Fe Fumarate-FA ( Vitamins) 28-0.8 MG tablet (20 sources)Start: 12-22-2024 End: 37-60-2228neja 1 tablet by mouth once dailyPrenatal Vit-Fe Fumarate-FA ( Vitamins) 28-0.8 MG tablet Indications: , unspecified gestational age ([facility]) , Encounter for supervision of normal first in first trimester([facility]) Take 1 tablet by mouth Daily 30 tablet 11 12/22/2024 12/22/2025 ActiveStart: 12-22-2024 End: 75-43-7092zcpx 1 tablet by mouth once dailyPrenatal Vit-Fe Fumarate-FA ( Vitamins) 28-0.8 MG tablet Indications: , unspecified gestational age , Encounter for supervision of normal first in first trimester Take 1 tablet by mouth Daily 30 tablet 11 12/22/2024 12/22/2025 Active terconazole 4 mg/ml vaginal cream (3 sources)Azole AntifungalStart: 04-26-2025 End: 04-08-9363hjslbzbcffl (Terazol 7) 0.4 % vaginal cream Indications: Vaginal discharge , Yeast infection Insert1 applicator into the vagina at bedtime for 7 days 45 g 04/26/2025 05/03/2025 Active Completed/Discontinued Medications MedicationDrug Class(es)DatesSig (Normalized)Sig (Original)acetaminophen 325 mg oral tablet (2 sources)Start: 01-21-2024 End: 03-78-6912pugh 1 tablet by mouth every four hours as needed for gomq254 mg, Oral, Every 4 hours PRN, mild pain, Starting on Thu01/22/24 at 0502, aluminum hydroxide 40 mg/ml / magnesium hydroxide 40 mg/ml / simethicone 4 mg/ml oral suspension (1 source)Start: 01-22-2024 End: 81-24-9618msrp 30 mL by mouth every four hours as chquyz60 mL, Oral, Every 4 hours PRN, indigestion, Starting on Thu01/22/24 at 0502, Postpartumcalcium carbonate 500 mg chewable tablet (1 source)Start: 01-21-2024 End: 18-77-5284oewwgxt carbonate (TUMS) chewable tablet 500 mgcalcium chloride 0.0014 meq/ml / potassium chloride 0.004 meq/ml / sodium chloride 0.103 meq/ml / sodium lactate 0.028 meq/ml injectable solution (1 source)Start: 01-20-2024 End: 02-00-7686fqcbixzl Ringers infusion1 ml carboprost 0.25 mg/ml injection (2 sources)Prostaglandin AnalogStart: 01-22-2024 End: 47-21-7516zmpswc 250 ug by intramuscular injection every twenty-four hours as ahcnsz034 mcg, Intramuscular, Once as needed, hemorrhage, Starting on Thu01/22/24 at 0502, For1 dose, , Only give as directed by physician Do not administer to asthmatics.Start: 01-22-2024 End: 71-45-6399nkrwez 250 ug by intramuscular injection every twenty-four hours as neededcarboprost (HEMABATE) injection 250 mcgdiphenhydrAMINE (1 source)Histamine-1 Receptor AntagonistStart: 01-22-2024 End: 03-79-0093rdfi 1 tablet by mouth every six hours as neededdiphenhydrAMINE (BENADRYL) tablet 25 mgdocusate sodium 100 mg oral capsule (1 source)Start: 01-22-2024 End: 78-06-7298baaj 100 mg by mouth twice daily as needed for fjliufyuxqbt530 mg, Oral, 2 times daily PRN, constipation, Starting on Thu01/22/24 at 0502, , Hold for loose stools DO NOT CRUSH OR CHEW.ferrous sulfate 325 mg oral tablet (1 source)Start: 01-22-2024 End: 86-93-0224qvnacfz sulfate tablet 325 mg0.5 ml HYDROmorphone hydrochloride 1 mg/ml prefilled syringe (3 sources)Opioid AgonistStart: 01-22-2024 End: 91-95-3773heyl 0.5 mg intravenously every twenty-four hours as needed0.5 mg, Intravenous, Once as needed, Pain Associated with Hemorrhage Management., Starting on Thu01/22/24 at 0502, For 1 dose, PostpartumStart: 01-20-2024 End: 40.5 mg, Intravenous, Every 15 min PRN, While on Epidural, for moderate to severe breakthrough pain,Starting on [place] 01/21/24 at 0305, Sign and Release, Use IV if moderate to severe pain persists 30 minutes after one dose of sublingual oxycodone or morphine, or if sublingual route not ordered. Do not exceed 1 mg per hour. Call anesthesia if moderate to severe pain persists 15 minutes after a secondIV dose given within an hour.ibuprofen 600 mg oral tablet (2 sources)Nonsteroidal Anti-inflammatory DrugStart: 01-22-2024 End: 56-13-8711jljy 1 dose by mouth every six hours at snduwzdu587 mg, Oral, Every 6 hours scheduled, First dose on Thu01/22/24 at 1200, , Give with food. Do not give within 6 hours of other NSAIDS, initial ibuprofen dose or ketorolac (Toradol). Do NotCrush or Chew if administering orally due to bitter taste. May be crushed if given via tube.Start: 01-22-2024 End: 66-81-2954ultd 1 tablet by mouth every twenty-four hours as needed for pain ibuprofen (ADVIL,MOTRIN) tablet 800 mgloperamide hydrochloride 2 mg oral capsule (1 source)Opioid AgonistStart: 01-22-2024 End: 80-46-2365smblqnhofa (IMODIUM) capsule 2 mg1 ml methylergonovine maleate 0.2 mg/ml injection (2 sources)Ergot DerivativeStart: 01-22-2024 End: 78-75-1171tpqriy 200 ug by intramuscular injection every twenty-four hours as nvhagz975 mcg, Intramuscular, Once as needed, hemorrhage, Starting on Thu01/22/24 at 0502, For1 dose, , Only give as directed by physician DO NOT ADMINISTER IF BP greater than 140/90 or pre-existing hypertension. CATEGORY B HAZARDOUS DRUG use safe handling precautions. Use referencelink to view PPE guidelines. Safe handling precautions only required when in the third trimester. EMERGENCY Hazardous Drug use professional judgement when deviating from standard handling precautions.Start: 01-22-2024 End: 59-55-6575aogkqcgxbouewfky (METHERGINE) injectionmiSOPROStol 0.2 mg oral tablet (1 source)Prostaglandin E1 AnalogStart: 01-22-2024 End: 47-72-4873jzva 1 tablet rectal route every twenty-four hours as needed1,000 mcg, Rectal, Once as needed, hemorrhage, Starting on Thu01/22/24 at 0502, For 1 dose, , Only give as directed by physician Hazardous Medication. Use safe handling precautions CATEGORY D HAZARDOUS DRUG use safe handling precautions. Use reference link to view PPE guidelines. Minimize crushing/splitting only to situations where clinically necessary.1 ml nalbuphine hydrochloride 10 mg/ml injection (1 source)Opioid Agonist/AntagonistStart: 01-21-2024 End: 59-94-7879ustb 2.5 mg intravenously every six hours as needed2.5 mg, Intravenous, Every 6 hours PRN, itching, Starting on Thu01/21/24 at 0305, Sign and Release,For itching while Epidural Infusion orders in effect.naloxone (NARCAN) 0.4 mg in sodium chloride 0.9 % (NS) 100 mL infusion (1 source)Start: 01-21-2024 End: 63-86-8777mxoi 0.04 mg intravenously every hour as needed0.04 mg/hr (10 mL/hr), Intravenous, Continuous PRN, itching, Starting on [place] 01/21/24 at 0305, Sign and Release, For itching while Epidural Orders in effect if nalbuphine (NUBAIN) and diphenhydramine (BENADRYL) ineffective or not ordered.naloxone (NARCAN) injection 0.1 mg (2 sources)Start: 01-22-2024 End: 09-52-9521ihtjxnfj (NARCAN) injection 0.1 mgStart: 01-21-2024 End: 69-86-1492nwcrtjug (NARCAN) injection 0.1 mgondansetron 4 mg disintegrating oral tablet (7 sources)Serotonin-3 Receptor AntagonistStart: 01-05-2025 End: 62-31-8283kgwu 1 tablet by mouth every six hours for nauseaondansetron ODT (Zofran-ODT) 4 MG disintegrating tablet Indications: Nausea and vomiting, unspecified vomiting type Take 1 tablet (4 mg) by mouth every 6 (six) hours if needed for nausea 30 tablet 2 01/05/2025 02/02/2025 Discontinuedondansetron (ZOFRAN-ODT) disintegrating tablet 4 mg (1 source)Start: 01-22-2024 End: 72-01-8164segu 1 tablet by mouth every six hours as needed for nausea and vomitingondansetron (ZOFRAN-ODT) disintegrating tablet 4 mgoxyCODONE hydrochloride 5 mg oral tablet (1 source)Opioid AgonistStart: 01-22-2024 End: 93-93-4472opef 5-10 mg by mouth every four hours as needed5-10 mg, Oral, Every 4 hours PRN (may [...] dose, or patient requires dose reduction, call physician.oxytocin (HIGH DOSE) in LR (PITOCIN) 40 unit/ 1,000 mL infusion Soln 40 Units (1 source)Start: 01-22-2024 End: 33-82-2294Rdpulotosqv, at 4,000 mL/hr, Once as needed, hemorrhage, Starting on Thu01/22/24 at 0502, For 1 dose, , Only give as directed by physician CATEGORY B HAZARDOUS DRUG use safe handling precautions. Use reference link to view PPE guidelines. Safe handling precautions only requiredwhen in the third trimester. EMERGENCY Haz Drug use professional judgement when deviating from standard handling precautions.oxytocin in lactated ringers (PITOCIN) 20 unit/1,000 mL infusion (1 source)Start: 01-20-2024 End: 73-67-2590qxionuyl in lactated ringers (PITOCIN) 20 unit/1,000 mL infusion rho(d) immune globulin (RHOPHYLAC) injection 300 mcg (1 source)Start: 01-22-2024 End: 14-12-1700tfjqnd 300 ug by intramuscular injection every twenty-four hours as neededrho(d) immune globulin (RHOPHYLAC) injection 300 gwa819 ml ropivacaine hydrochloride 2 mg/ml injection (1 source)Amide Local AnestheticStart: 01-21-2024 End: 71-95-7566Wfnoygmz, Continuous, Starting on Thu01/21/24 at 0400, Sign and Release, Only the patient is permitted to push the PCEA button., Continous Infusion: 10 mL/hr, PCEA Bolus Dose: 5 mL, PCEA Bolus Lockout Interval: 15 minutes, Number of Boluses per Hour: 4simethicone 80 mg chewable tablet (1 source)Start: 01-22-2024 End: 97-61-952201 mg, Oral, After meals as needed, flatulence, gas discomfort, Starting on Thu01/22/24 at 0502, Wsodkppqnk0410 ml sodium chloride 9 mg/ml injection (2 sources)Start: 01-22-2024 End: -150 mL/hr, Intravenous, As needed, To flush line after IV infusions when no maintenance IV ordered or a compatibility issue. Infuse 20mL at the same rate as the secondary infusion, Starting on Thu01/22/24 at 0502, L&D Post-Delivery, Run as Primary IV. NOT intended for KVO.100 ml tranexamic acid 10 mg/ml injection (2 sources)Antifibrinolytic AgentStart: 01-22-2024 End: 78-52-8463qtsc 1000 mg intravenously every twenty-four hours as needed1,000 mg, Intravenous, Administer over 10 Minutes, Once as needed, hemorrhage, Starting on Thu01/22/24 at 0502, For 1 dose, , Only give as directed by physician. This is a REPEATDOSE, and should be given IF DIRECTED if bleeding continues 30 minutes after administration of the First Dose, or if bleeding stops and then restarts within 24 hours of administering the First Dose. MAXIMUM TOTAL dose of 2000 mg.Start: 01-22-2024 End: 27-01-9637rifz 1000 mg intravenously every twenty-four hours as needed1,000 mg, Intravenous, Administer over 10 Minutes, Once as needed, hemorrhage, Starting on Thu01/22/24 at 0502, For 1 dose, , Only give as directed by physician. This is the FIRST DOSE, and should be given IF DIRECTED within 3 hours of . MAXIMUM TOTAL dose of 2000 mg. Problems Active Problems Problem ClassificationProblemDateDocumented DateEpisodic/ChronicBacterial infection; unspecified site (2 sources)Unspecified staphylococcus as the cause of diseases classified elsewhere; Translations: [Unspecified staphylococcus as the cause of diseases classified elsewhere]Onset: 11-17-8308SlgkisbdUqsxvtjd mellitus without complication (2 sources)Abnormal glucose tolerance test; Translations: [Other abnormal glucose]79-21-5288VilwqkmiDaoypvxbsdmos and screening for infectious disease (9 sources)Contact with and (suspected) exposure to infections with a predominantly sexual mode of transmission; Translations: [Needs influenza immunization]Onset: 98-34-9856ZmeclopeBeeeyijoonhp diseases of female pelvic organs (1 source)Bacterial vaginosis; Translations: [Acute vaginitis]13-40-8269Gtuljekk Menstrual disorders (1 source)Missed period; Translations: [Irregular menstruation, unspecified] 70-63-3622CvibppfUxhy disorders (7 sources)Bipolar I disorder; Translations: [Bipolar disorder, unspecified] Onset: 741288-09-0172EiwkpzoRxambeg (2 sources)Mycosis; Translations: [Candidiasis, unspecified]48-93-8003Luexdrbe Nausea and vomiting (2 sources)Nausea and vomiting; Translations: [Nausea with vomiting, unspecified]95-39-5456JqrtfpclVfdrs complications of (20 sources)History of pre-eclampsia; Translations: [Supervision of with other poor reproductive or obstetric history, unspecified trimester]Onset: 053670-52-4991DrzrdmpdAbnsf complications of (2 sources) size does not accord with dates; Translations: [Uterine size- date discrepancy, unspecified trimester]08-14-4218KfcasxcaEegth complications of (8 sources)Heartburn; Translations: [Other specified related conditions, third trimester]87-48-9872XmlugvejVrmbg connective tissue disease (1 source)Pain of bilateral upper limbs; Translations: [Pain in right arm] EpisodicOther ear and sense organ disorders (4 sources)Tinnitus, left ear; Translations: [TINNITUS LEFT EAR]Onset: 49-16-0847GjselspuHmnby female genital disorders (4 sources)Vaginal discharge; Translations: [Other specified noninflammatory disorders of vagina]62-72-3665UvpefkgjFgfuw and delivery including normal (20 sources); Translations: [Encounter for supervision of normal , unspecified, unspecified trimester]Onset: EpisodicOther screening for suspected conditions (not mental disorders or infectious disease) (5 sources)Cancer cervix screening status; Translations: [Encounter for screening for malignant neoplasm of cervix]EpisodicOther upper respiratory disease (2 sources)Allergic rhinitis; Translations: [Allergic rhinitis, unspecified] ChronicOther upper respiratory disease (4 sources)Seasonal allergy; Translations: [Other seasonal allergic rhinitis] Onset: 805460-66-9814ZvlaakiVvkdp upper respiratory disease (1 source)Allergic rhinitis, unspecified; Translations: [Allergic rhinitis, unspecified]Onset: 60-76-2929LepivfwJhualqwd codes; unclassified (2 sources)Gestation period, 12 weeks; Translations: [12 weeks gestation of ]66-44-7596NhyhjuctAgeuvjyc codes; unclassified (2 sources)Gestation period, 16 weeks; Translations: [16 weeks gestation of ]25-60-1861MtwuaqdoMqmofqjb codes; unclassified (2 sources)Gestation period, 20 weeks; Translations: [20 weeks gestation of ]40-58-0172WpzxqureEaegcybz codes; unclassified (2 sources)Gestation period, 25 weeks; Translations: [25 weeks gestation of ]11-90-1377ItstpwkgMitckvrs codes; unclassified (20 sources)H/O: hypertension; Translations: [Personal history of other complications of , childbirth and the puerperium]Onset: 04-10-2025 13-00-7256VayacptpJfflqdrj codes; unclassified (2 sources)Gestation period, 27 weeks; Translations: [27 weeks gestation of ]19-32-2205UlbetarqKtigtflb codes; unclassified (2 sources)Gestation period, 29 weeks; Translations: [29 weeks gestation of ]80-31-9140YbrjmxpxPxaphlgs codes; unclassified (2 sources)Gestation period, 31 weeks; Translations: [31 weeks gestation of ]48-52-5500SrvcvicgJejzqzzt codes; unclassified (2 sources)Gestation period, 34 weeks; Translations: [34 weeks gestation of ]76-76-2710AslzcczqTibzxkvx codes; unclassified (4 sources)Gestation period, 36 weeks; Translations: [36 weeks gestation of ]33-47-1939RuojepwkDmhuuuqh codes; unclassified (2 sources)Gestation period, 38 weeks; Translations: [38 weeks gestation of ]91-99-9970HvpbvtkfIbie and subcutaneous tissue infections (2 sources)Local infection of the skin and subcutaneous tissue, unspecified; Translations: [Local infection ofthe skin and subcutaneous tissue, unspecified] Onset: 78-04-3007SzwfbxxuWanyyfvkarfx (2 sources)Chronic Care Visit (CCV); Translations: [Chronic Care Visit (CCV)] Onset: 36-02-8501Vahzzulgtiha (2 sources)Gynecologic Exam; Translations: [Gynecologic Exam]Onset: 08-25-2022 Unclassified (20 sources)OB RemindersOnset: Past or Other Problems Problem ClassificationProblemDateDocumented DateEpisodic/ChronicAnxiety disorders (3 sources)Anxiety; Translations: [Anxiety disorder, unspecified]Onset: 06-22-2019 Resolved: 928197-35-1514RvsqqszLsffr connective tissue disease (1 source)Pain in right arm; Translations: [Pain in right arm]Onset: 07-21-2022 EpisodicOther connective tissue disease (1 source)Pain in left arm; Translations: [Pain in left arm]Onset: 07-21-2022 EpisodicOther upper respiratory disease (3 sources)Seasonal allergic rhinitis; Translations: [Other seasonal allergic rhinitis]Onset: 01-04-2021 Resolved: 900029-02-9583MmpienlFzoohmfj codes; unclassified (3 sources)Insomnia; Translations: [Insomnia, unspecified]Onset: 06-22-2019 47-06-7918Wlrhhcai Results Test NameValueInterpretationReference RangeFacilityUrinalysis macro (dipstick) panel (U)on 82-79-3479Nuhfoxjwr, UANegativeNegative - 4(70) +++ mg/dLNOMS HealthcareBlood, UANegativeNegative - 50 Hernan/mcLNOMS HealthcareClarity, UAClear NOMS HealthcareColor, UAYellowNOMS HealthcareGlucose, UANegativeNegative - 2000(110) ++++ mg/dLNOMS HealthcareInterpretation and review of laboratory resultsNormalNOMS HealthcareKetones, UANegativeNegative - 160(16) ++++ mg/dLNOMS HealthcareLeukocytes, UANegativeNegative - 500+++ Deana/mcLNOMS HealthcareNitrite, UANegativeNegative - PositiveNOMS HealthcarepH, UA7.05 - 9[facility] Protein, UANegativeNegative - 2000(20) ++++ mg/dLNOMS HealthcareSpec Grav, UA 1.0101 - 1.03NOMS HealthcareUrobilinogen, UA1.00.2 - 12 mg/dLNOMS HealthcareNOMS HealthcareUrinalysis macro (dipstick) panel (U)on 13-61-3878Xqfjzjoqz, UA NegativeNegative - 4(70) +++ mg/dLNOMS HealthcareBlood, UANegativeNegative - 50 Hernan/mcLNOMS HealthcareClarity, UAClearNOMS HealthcareColor, UAYellowNOMS HealthcareGlucose, UANegativeNegative - 1999(110) ++++ mg/dLNOMS Healthcare Interpretation and review of laboratory resultsAbnormalNOMS HealthcareKetones, UANegativeNegative - 160(16) ++++ mg/dLNOMS HealthcareLeukocytes, UAPositive Negative - 500+++ Deana/mcLNOMS HealthcareNitrite, UANegativeNegative - Positive NOMS HealthcarepH, UA7.05 - 9NOMS HealthcareProtein, UANegativeNegative - 2000(20) ++++ mg/dLNOMS HealthcareSpec Grav, UA1.0101 - 1.03N[facility] Urobilinogen, UA1.00.2 - 12 mg/dLNOMS HealthcareNOMS HealthcareUrinalysis macro (dipstick) panel (U)on 03-83-5343Vmpmyvvob, UANegativeNegative - 4(70) +++ mg/dL N[facility] HealthcareBlood, UANegativeNegative - 50 Hernan/mcLNOMS HealthcareClarity, UA ClearNOMS HealthcareColor, UAYellowNOMS HealthcareGlucose, UANegativeNegative - 1999(110) ++++ mg/dLNOMS HealthcareInterpretation and review of laboratory resultsAbnormalNOMS HealthcareKetones, UANegativeNegative - 160(16) ++++ mg/dL NOMS HealthcareLeukocytes, UA1+Negative - 500+++ Deana/mcLNOMS HealthcareNitrite, UANegativeNegative - PositiveNOMS HealthcarepH, UA6.05 - 9[facility] Protein, UATraceNegative - 1999(20) ++++ mg/dLNOMS HealthcareSpec Grav, UA1.0151 - 1.03NOMS HealthcareUrobilinogen, UA2.00.2 - 12 mg/dLNOMS HealthcareNOMS HealthcareUrinalysis macro (dipstick) panel (U)Ordered By: Akanksha Keys on 31-80-1166Sfzsfzzoa, UANegativeNegative - 4(70) +++ mg/dLNOMS HealthcareBlood, UANegativeNegative - 50 Hernan/mcLNOMS HealthcareClarity, UAClearNOMS Healthcare Color, UAYellowNOMS HealthcareGlucose, UANegativeNegative - 1999(110) ++++ mg/dL NOMS HealthcareInterpretation and review of laboratory resultsNormalNOMS HealthcareKetones, UANegativeNegative - 160(16) ++++ mg/dLNOMS Healthcare Leukocytes, UANegativeNegative - 500+++ Deana/mcLNOMS HealthcareNitrite, UA NegativeNegative - PositiveNOMS HealthcarepH, UA6.05 - 9NOMS HealthcareProtein, UANegativeNegative - 2000(20) ++++ mg/dLNOMS HealthcareSpec Grav, UA1.0101 - 1.03NOMS HealthcareUrobilinogen, UA1.00.2 - 12 mg/dLNOMS HealthcareNOMS HealthcareUrinalysis macro (dipstick) panel (U)on 25-32-7845Xuwtldagh, UA NegativeNegative - 4(70) +++ mg/dLNOMS HealthcareBlood, UANegativeNegative - 50 Hernan/mcLNOMS HealthcareClarity, UAClearNOMS HealthcareColor, UAYellowNOMS HealthcareGlucose, UANegativeNegative - 1999(110) ++++ mg/dLNOMS Healthcare Interpretation and review of laboratory resultsAbnormalNOMS HealthcareKetones, UANegativeNegative - 160(16) ++++ mg/dLNOMS HealthcareLeukocytes, UANegative Negative - 500+++ Deana/mcLNOMS HealthcareNitrite, UANegativeNegative - Positive NOMS HealthcarepH, UA75 - 9NOMS HealthcareProtein, UANegativeNegative - 2000(20) ++++ mg/dLNOMS HealthcareSpec Grav, UA1.011 - 1.03NOMS HealthcareUrobilinogen, UA0.20.2 - 12 mg/dLNOMS HealthcareNOMS HealthcareUS OB FOLLOW UP TRANSABDOMINAL APPROACHon 37-12-2753XI OB FOLLOW UP TRANSABDOMINAL APPROACHA single, live intrauterine is present with normal [...] menstrual period. TRANSCRIBED BY: ELECTRONICALLY SIGNED BY: Christina JohnsonalNot AvailableComment on above:Order Comment: US OB SCAN FOR GROWTH Estimated Date of Delivery: 07/20/25 Gestational Age as of 04/26/2025: 83n8kQykgytertu macro (dipstick) panel (U)on 78-82-3868Cmsjbqbob, UANegativeNegative - 4(70) +++ mg/dLNOMS HealthcareBlood, UANegativeNegative - 50 Hernan/mcLNOMS HealthcareClarity, UAClearNOMS Healthcare Color, UAYellowNOMS HealthcareGlucose, UANegativeNegative - 2000(110) ++++ mg/dL [facility] HealthcareInterpretation and review of laboratory resultsNormalNOWY HealthcareKetones, UANegativeNegative - 160(16) ++++ mg/dLNOMS Healthcare Leukocytes, UANegativeNegative - 500+++ Deana/mcLNOMS HealthcareNitrite, UA NegativeNegative - PositiveNOMS HealthcarepH, UA65 - 9NOMS HealthcareProtein, UA NegativeNegative - 2000(20) ++++ mg/dLNOMS HealthcareSpec Grav, UA1.011 - 1.03 NOMS HealthcareUrobilinogen, UA0.20.2 - 12 mg/dLNOWY HealthcareNOWY Healthcare GLUCOSE TOLERANCE 3 HOURon 89-89-0499MUEDYWE TOLERANCE 3 HOURHighmg/dLNOWY HealthcareComment on above:GLU FAST 95H (<95) Col: 04/28/25 0738 GLU 1HR 153 (<180) Col: 04/28/25 0842 GLU 2HR 130 (<155) Col: 04/28/25 0942 GLU 3HR 121 (<140) Col: 04/28/25 1041 Interpretation and review of laboratory resultsAbFormerly [facility], [facility]1983Urinalysis macro (dipstick) panel (U)on 76-90-9307Awvrhlhxv, UA NegativeNegative - 4(70) +++ mg/dLNOWY HealthcareBlood, UANegativeNegative - 50 Hernan/mcLNOWY HealthcareClarity, UAClearNOMS HealthcareColor, UAYellowNOWY HealthcareGlucose, UANegativeNegative - 2000(110) ++++ mg/dLNOPerry County Memorial Hospital Interpretation and review of laboratory resultsAbnormLifecare Hospital of Chester CountyKetones, UANegativeNegative - 160(16) ++++ mg/dLColumbia Regional HospitalLeukocytes, UANegative Negative - 500+++ Deana/mcLNOPerry County Memorial HospitalNitrite, UANegativeNegative - Positive [facility] HealthcarepH, UA6.55 - 9NOWY HealthcareProtein, UANegativeNegative - 2000(20) ++++ mg/dLNOWY HealthcareSpec Grav, UA1.011 - 1.03NOWY Healthcare Urobilinogen, UA1.00.2 - 12 mg/dLNOEllis Fischel Cancer Center HealthcareGLUCOSE 1 HOURon 76-88-7465Eflolgg [Mass/Vol]160 mg/dLHighNINF - 130 mg/dLColumbia Regional Hospital Interpretation and review of laboratory resultsAbFormerly [facility]US OB LIMITED 1+ FETUSESon 95-65-9382RE OB LIMITED 1+ FETUSES FINDINGS: Single viable intrauterine , cephalic presentation, normal cardiac and activity, heart rate 143 bpm. Adequate visualization appropriate for age of the craniofacial region, 4 chamber heart outflow tracts. IMPRESSION: Normal craniofacial and cardiac, outflow tract anatomy TRANSCRIBED BY: ELECTRONICALLY SIGNED BY: Nusrat Johnson AvailableComment on above:Order Comment: US OB INCOMPLETE ANATOMY Estimated Date of Delivery: 07/20/25 Gestational Age as of 03/14/2025: 78t6tDjvujckhcl macro (dipstick) panel (U)on 27-03-2021Easqwazvz, UANegativeNegative - 4(70) +++ mg/dLNOMS HealthcareBlood, UANegativeNegative - 50 Hernan/mcLNOMS HealthcareClarity, UAClearNOMS Healthcare Color, UAYellowNOMS HealthcareGlucose, UANegativeNegative - 2000(110) ++++ mg/dL NOMS HealthcareInterpretation and review of laboratory resultsNormalNOMS HealthcareKetones, UANegativeNegative - 160(16) ++++ mg/dLNOMS Healthcare Leukocytes, UANegativeNegative - 500+++ Deana/mcLNOMS HealthcareNitrite, UA NegativeNegative - PositiveNOMS HealthcarepH, UA65 - 9NOMS HealthcareProtein, UA NegativeNegative - 2000(20) ++++ mg/dLNOMS HealthcareSpec Grav, UA1.0151 - 1.03 NOMS HealthcareUrobilinogen, UA1.00.2 - 12 mg/dLNOMS HealthcareNOMS Healthcare AFP, SERUM, OPEN SPINA BIFIDAon 00-31-7145OLK MOM0.55.NOMS HealthcareAFP VALUE 25.7 ng/mL.NOMS HealthcareCOMMENT:Comment.NOMS HealthcareComment on above:Sidra Da Silva, Ph.D., [facility] Director References: Available Upon Request. Multiples Of Median Cutoffs For AFP Elevations Root 2.5 Black 2.8 IDD 2.0 Twins 4.5 Abbreviation Definitions IDD - Insulin Dep Diabetes OSBR - Open Spina Bifida Risk For further inquiries contact [employer] at [phone]. This test was developed and its performance characteristics determined by [employer]. It has not been cleared or approved by the Food and Drug Administration. Performed at: [facility] CHNLssm [facility] RTP [address] [facility], [place], [place] [id number] Hydrant Setter: Basilia Taylor [facility], Phone: [phone] GEST. AGE ON COLLECTION DATE20.0. weeksNOMS HealthcareGESTAT. AGE BASED ONLMP. NOMS HealthcareComment on above:Recalculations are not recommended when gestational dating by LMP and ultrasound are within 10 days. INSULIN DEP DIABETESNo.NOMS HealthcareINTERPRETATIONComment.[facility] Healthcare Comment on above:Interpretation: Screen Negative This result is screen negative [...] Customer Services to discuss available options. The [employer] recommends amniocentesis be offered to women age 35 and older. MATERNAL AGE AT EDD27.9. yrNOWY HealthcareMULTIPLE GESTATIONNo.[facility] OSBR RISK 1 [id number].[facility] Regional HospitalRACECaucasian.[facility] HospitalRESULTSReport. [facility] Regional HospitalTEST RESULTS:Negative.[facility] Regional HospitalBpxubhpyosQNVHNY861. lbVirginia Mason Health System HealthcarePREGNANCY N N LMP [id number] 0 16 N 1 Y 206 N N N N N White/ CLINISYNCNOWY HealthcareUS OB 14+ WEEKS ANATOMY SCANon 01-11-2891MT OB 14+ WEEKS ANATOMY SCANEXAM: US OB 14+ WEEKS ANATOMY SCAN HISTORY: [...] II, MD, PHD at 05-Mar-2025 10:03:06 PM [facility] TeleradiologyNormalNot AvailableComment on above:Order Comment: US OB ANATOMY SINGLE W US OB CERVICAL LENGTH Estimated Date of Delivery: 07/20/25 Gestational Age as of 02/02/2025: 89g4tMxnfjgxvuq macro (dipstick) panel (U)on 39-15-8047Wznlpwsid, UANegativeNegative - 4(70) +++ mg/dLNOMS HealthcareBlood, UANegativeNegative - 50 Hernan/mcLNOMS HealthcareClarity, UAClearNOMS Healthcare Color, UAYellowNOMS HealthcareGlucose, UANegativeNegative - 2000(110) ++++ mg/dL NOMS HealthcareInterpretation and review of laboratory resultsAbnormalNOMS HealthcareKetones, UANegativeNegative - 160(16) ++++ mg/dLNOMS Healthcare Leukocytes, UANegativeNegative - 500+++ Deana/mcLNOMS HealthcareNitrite, UA NegativeNegative - PositiveNOMS HealthcarepH, UA75 - 9NOMS HealthcareProtein, UA NegativeNegative - 2000(20) ++++ mg/dLNOMS HealthcareSpec Grav, UA1.0151 - 1.03 NOMS HealthcareUrobilinogen, UA1.00.2 - 12 mg/dLNOMS HealthcareNOMS Healthcare Urinalysis macro (dipstick) panel (U)on 33-68-9386Nfwdhzcla, UANegativeNegative - 4(70) +++ mg/dLNOMS HealthcareBlood, UANegativeNegative - 50 Hernan/mcLNOMS HealthcareClarity, UAClearNOMS HealthcareColor, UAAmberNOMS HealthcareGlucose, UANegativeNegative - 2000(110) ++++ mg/dLNOMS HealthcareInterpretation and review of laboratory resultsAbnormalNOMS HealthcareKetones, UANegativeNegative - 160(16) ++++ mg/dLNOMS HealthcareLeukocytes, UANegativeNegative - 500+++ Deana/mcLNOMS HealthcareNitrite, UANegativeNegative - PositiveNOMS HealthcarepH, UA6.55 - 9NOMS HealthcareProtein, UAPositiveNegative - 2000(20) ++++ mg/dLNOMS HealthcareComment on above:30Spec Grav, UA1.021 - 1.03NOMS Healthcare Urobilinogen, UA0.20.2 - 12 mg/dLNOMS HealthcareNOMS HealthcareIGP,APTIMA HPV,AGE GDLNon 31-56-5991VAL GDLN ACOG TESTINGNote.NOMS HealthcareComment on above:TESTS RESULT FLAG UNITS REF RANGE LAB Clinician Provided Cytology Information Source.............Cervix;Endocervix No. of containers..01 ThinPrep Vial Age Algo ACOG Amparo... FLAG LEGEND: L-Low Normal,H-High Normal,LL-Alert Low,HH-Alert High <-Panic Low,>-Panic High,A-Abnormal,AA-Critical Abnormal Performed at: 01 =G [facility] [address] [place] [address] Analia [place] MD, IGP, RFX APTIMA HPV ASCUNote.NOMS HealthcareComment on above:TESTS RESULT FLAG UNITS REF RANGE LAB DIAGNOSIS: 02 NEGATIVE FOR INTRAEPITHELIAL LESION OR MALIGNANCY. Specimen adequacy: 02 Satisfactory for evaluation. No endocervical component is identified. Performed by: 02 Danni Gonzalez, Enrichment Specialist ([facility]) . 02 Note: Note 02 The Pap [...] High,A-Abnormal,AA-Critical Abnormal Performed at: 02 [address] [facility] [address] [place] [address] Analia [place] MD, Performed at: = - [facility] [id number] Hydrant Setter: Analia [place] MD, Phone: [phone] Performed at: [address] [id number] Hydrant Setter: Analia [place] MD, Phone: [phone] BRUSH-SPATULA CERVIX ENDOCERVIX CLINISYNCNOMS HealthcareRECURRENT VAGINITIS (HTRX)on 96-29-8019ZWBYWWQNX VAGINAE 0NOMS HealthcareATOPOBIUM VAGINAENot detectedNOMS HealthcareBVAB 2,3 (BACTERIAL VAGINOSIS ASSOCIATED BACTERIA 2, 3); MOBILUNCUS YIK8UODT HealthcareBVAB 2,3 (BACTERIAL VAGINOSIS ASSOCIATED BACTERIA 2, 3); MOBILUNCUS SPPNot detectedNOMS HealthcareCANDIDA ALBICANS, PARAPSILOSIS, QUFSSAYEFV1JBMG HealthcareCANDIDA ALBICANS, PARAPSILOSIS, TROPICALISNot detectedNOMS HealthcareCANDIDA GLABRATA0 NOMS HealthcareCANDIDA GLABRATANot detectedNOMS HealthcareCANDIDA OVHQAL9HFZF HealthcareCANDIDA KRUSEINot detectedNOMS HealthcareCHLAMYDIA QVFEDGLAKPV9JICE HealthcareCHLAMYDIA TRACHOMATISNot detectedNOMS HealthcareGARDNERELLA VAGINALIS0 NOMS HealthcareGARDNERELLA VAGINALISNot detectedNOMS HealthcareMEGASPHAERA (TYPES 1, 2)0NOMS HealthcareMEGASPHAERA (TYPES 1, 2)Not detectedNOMS Healthcare MYCOPLASMA EZYDEUHTCT6DFHR HealthcareMYCOPLASMA GENITALIUMNot detectedNOMS HealthcareNEISSERIA XTYFLSRTQFA2SYCM HealthcareNEISSERIA GONORRHOEAENot detected NOMS HealthcareTRICHOMONAS YRWNCTTTP2MVKX HealthcareTRICHOMONAS VAGINALISNot detectedNOMS HealthcareNOMS HealthcareUrinalysis macro (dipstick) panel (U)on 19-37-9643Lvhviepnn, UANegativeNegative - 4(70) +++ mg/dLNOMS HealthcareBlood, UANegativeNegative - 50 Hernan/mcLNOMS HealthcareClarity, UAClearNOMS Healthcare Color, UAYellowNOMS HealthcareGlucose, UANegativeNegative - 2000(110) ++++ mg/dL [facility] HealthcareInterpretation and review of laboratory resultsAbnormalMOUNTAIN [facility]ST [facility] HealthcareKetones, UANegativeNegative - 160(16) ++++ mg/dLMOUNTAIN [facility]ST [facility] Healthcare Leukocytes, UANegativeNegative - 500+++ Deana/mcLNOWY HealthcareNitrite, UA NegativeNegative - PositiveNOWY HealthcarepH, UA6.55 - 9NOWY HealthcareProtein, UANegativeNegative - 2000(20) ++++ mg/dLNOWY HealthcareSpec Grav, UA1.0251 - 1.03NOWY HealthcareUrobilinogen, UA1.00.2 - 12 mg/dLChildren[facility] HealthcareALL TYPE AND SCREENon 36-34-4294WXA and Rh group Nom (Bld)Blood group O Rh(D) positiveMemorial Hospital ,CLINISYCopper Basin Medical CenterHCG ( test) Ql (U)on 04-87-7097Npbagorikzxztk and review of laboratory resultsNormalColumbia Regional HospitalPreg Test, UrPositive NegativeAtrium Health StanlyMLR HEMOGLOBIN A1Con 10-32-4801Hylszlx [Mass/Vol]100 mg/dLColumbia Regional HospitalHbA1c (Bld) [Mass fraction]5.1 %4.5 - 6.2 % [facility] HealthcareComment on above:ADA RECOMMENDED LIMIT 4.0 - 6.0 ADA THERAPEUTIC TARGET < 7.0 ACTION SUGGESTED > 7.0 [facility]YTHE [facility] HealthcareUS OB TRANSVAGINALon 09-36-7724TN OB TRANSVAGINALEXAM: US OB TRANSVAGINAL HISTORY: Dating. COMPARISON: None [...] II, MD, PHD at 24-Dec-2024 06:51:11 PM [facility] TeleradiologyNormalNot AvailableComment on above:Order Comment: US OB TRANSVAGINAL No LMP recorded.Urinalysis macro (dipstick) panel (U)on 16-81-4046Cfaryqyui, UA NegativeNegative - 4(70) +++ mg/dLNOMS HealthcareBlood, UANegativeNegative - 50 Hernan/mcLNOMS HealthcareClarity, UAClearNOMS HealthcareColor, UAYellowNOMS HealthcareGlucose, UANegativeNegative - 2000(110) ++++ mg/dLNOMS Healthcare Interpretation and review of laboratory resultsNormalNOMS HealthcareKetones, UA NegativeNegative - 160(16) ++++ mg/dLNOMS HealthcareLeukocytes, UANegative Negative - 500+++ Deana/mcLNOMS HealthcareNitrite, UANegativeNegative - Positive NOMS HealthcarepH, UA65 - 9NOMS HealthcareProtein, UANegativeNegative - 2000(20) ++++ mg/dLNOMS HealthcareSpec Grav, UA1.0251 - 1.03NOMS HealthcareUrobilinogen, UA1.00.2 - 12 mg/dLNOMS HealthcareNOMS HealthcareDisch Summon 81-06-2893Ghdwu Summ26 YO P1 WHO UNDERWENT FAVD WITH UNREMARKABLE COURSE AUTHENTICATED BY FRANKIE ARTIS, ON 01/23/2024 05:56:57NormalRiverside Texas Children'S HospitalHEMOGLOBIN AND HEMATOCRITon 11-24-2059Uunguhckfg (Bld) [Volume fraction]27.7 %Low36.0-46.0RiVeterans Health AdministrationComment on above: Performed By: #### [id number] #### [facility] [address] [place] [address] Donavan Shafer M.D. [id number] (Bld) [Mass/Vol]9.0 g/dLLow12.0-16.0RiVeterans Health AdministrationComment on above:Performed By: #### [id number] #### [facility] [address] [place], [place] [address] Donavan Shafer M.D. [id number] and Hematocrit panel (Bld)on 07-20-3213Ulasefjgkl (Bld) [Volume fraction]27.7 %Low36.0 - 46.0 %OhioHealthHemoglobin (Bld) [Mass/Vol]9.0 g/dLLow12.0 - 16.0 g/dLOhioHealthInterpretation and review of laboratory results AbnormalOhioHealthOhioHealthCBCon 55-97-5890JRNZ NRBC0.0 %NormalRiVeterans Health AdministrationComment on above:Performed By: #### [id number] #### [facility] [address] [place], [place] [address] Donavan Shafer M.D. [id number] NRBC ABS COUNT0.00 K/mcLNormal0.00-0.00RiVeterans Health AdministrationComment on above:Performed By: #### [id number] #### [facility] [address] [place] [address] Donavan Shafer M.D. [id number] distribution width (RBC) [Ratio]13.5 %Rsgmeh59.6-14.8 [facility] HospitalComment on above:Performed By: #### [id number] #### [facility] [address] [place], [place] [address] Donavan Shafer M.D. [id number] (Bld) [Volume fraction]29.7 %Low36.0-46.0[facility] Evangelical HospitalComment on above:Performed By: #### [id number] #### [facility] [address] [place] [address] Donavan Shafer M.D. [id number] (Bld) [Mass/Vol]10.0 g/dLLow12.0-16.0RiZanesville City Hospital HospitalComment on above:Performed By: #### 73060 #### [facility] [address] [place] [address] Donavan Shafer M.D. [id number] (RBC) [Entitic mass]31.4 ywMmqfmi90.0-34.0RiZanesville City Hospital HospitalComment on above:Performed By: #### [id number] #### [facility] [address] [place] [address] Donavan Shafer M.D. [id number] (RBC) [Entitic vol]93.4 hPXfbccv07.0-100.0RiZanesville City Hospital HospitalComment on above:Performed By: #### [id number] #### [facility] [address] [place] [address] Donavan Shafer M.D. [id number] CORPUSCULAR HEMOGLOBIN CONC33.7 g/iDHxzjfg74.0-37.0RiZanesville City Hospital HospitalComment on above:Performed By: #### 63225 #### [facility] [address] [place] [address] Donavan Shafer M.D. [id number] mean volume (Bld) [Entitic vol]12.6 fLHigh9.4-12.4R[facility]ide Evangelical HospitalComment on above:Performed By: #### [id number] #### [facility] [address] [place] [address] Donavan Shafer M.D. [id number] (Bld) [#/Vol]101 10*3/uVYzt090-600ZbduyluooVeterans Health AdministrationComment on above:Performed By: #### [id number] #### [facility] [address] [place] [address] Donavan Shafer M.D. [id number] (Bld) [#/Vol]3.18 10*6/uLLow4.00-5.20RiVeterans Health Administration Comment on above:Performed By: #### 06377 #### [facility] [address] [place], [place] [address] Donavan Shafer M.D. [id number] (Bld) [#/Vol]20.43 10*3/uLHigh4.50-11.00RiVeterans Health AdministrationComment on above:Performed By: #### 64762 #### [facility] [address] [place] [address] Donavan Shafer M.D. [id number] panel Auto (Bld)on 28-24-9491Qjlwdyzlbly distribution width (RBC) [Entitic vol]13.5 %11.6 - 14.8 %OhioHealthHematocrit (Bld) [Volume fraction]29.7 %Low36.0 - 46.0 %OhioHealthHemoglobin (Bld) [Mass/Vol]10.0 g/dLLow12.0 - 16.0 g/dLOhioHealthInterpretation and review of laboratory resultsAbnormalOhioHealth MCH (RBC) [Entitic mass]31.4 pg26.0 - 34.0 pgOhioHealthMCHC (RBC) [Mass/Vol]33.7 g/dL31.0 - 37.0 g/dLOhioHealthMCV (RBC) [Entitic vol]93.4 fL80.0 - 100.0 fL OhioHealthNucleated RBC (Bld) [#/Vol]0.00 10*3/uLOhioHealthNucleated RBC/100 WBC (Bld) [Ratio]0.0 %OhioHealthPlatelet mean volume (Bld) [Entitic vol]12.6 fLHigh 9.4 - 12.4 fLOhioHealthPlatelets (Bld) [#/Vol]101 10*3/uLLowOhioHealthRBC (Bld) [#/Vol]3.18 10*6/uLLowOhioHealthWBC (Bld) [#/Vol]20.43 10*3/uLHighOhioHealth OhioHealthAPTTon 09-09-2880xDWX Coag (Bld) [Time]28 sOhioHealthaPTT Coag (Bld) [Time]28 eWouncn74-12OyaxfnbmvVeterans Health AdministrationComment on above:Order Comment: Therapeutic range for APTT's is 68 - 104 secondsPerformed By: #### [id number] #### [facility] [address] [place] [address] Donavan Shafer M.D. [id number] Auto Differentialon 83-24-1760Buivyyzhm (Bld) [#/Vol]0.03 10*3/uL OhioHealthBasophils/100 WBC (Bld)0.3 %OhioHealthEosinophils (Bld) [#/Vol]0.04 10*3/uLOhioHealthEosinophils/100 WBC (Bld)0.4 %OhioHealthErythrocyte distribution width (RBC) [Entitic vol]13.9 %11.6 - 14.8 %OhioHealthHematocrit (Bld) [Volume fraction]33.6 %Low36.0 - 46.0 %OhioHealthHemoglobin (Bld) [Mass/Vol]11.4 g/dLLow12.0 - 16.0 g/dLOhioHealthImmature granulocytes (Bld) [#/Vol]0.06 10*3/uLOhioHealthImmature granulocytes/100 WBC (Bld)0.60 %[facility] Comment on above:The IG parameter is the percentage of metamyelocytes, myelocytes and promyelocytes. An immature granulocyte count (IG) of 1% or more suggests the possibility of infection, an IG count of 3% is very likely related to an infection.Interpretation and review of laboratory resultsAbnormal OhioHealthLymphocytes (Bld) [#/Vol]1.00 10*3/uLOhioHealthLymphocytes/100 WBC (Bld)9.3 %OhioHealthMCH (RBC) [Entitic mass]31.6 pg26.0 - 34.0 pgOhioHealthMCHC (RBC) [Mass/Vol]33.9 g/dL31.0 - 37.0 g/dLOhioHealthMCV (RBC) [Entitic vol]93.1 fL80.0 - 100.0 fLOhioHealthMonocytes (Bld) [#/Vol]1.11 10*3/uLHighOhioHealth Monocytes/100 WBC (Bld)10.3 %OhioHealthNeutrophils (Bld) [#/Vol]8.52 10*3/uLHigh OhioHealthNeutrophils/100 WBC (Bld)79.1 %OhioHealthNucleated RBC (Bld) [#/Vol] 0.00 10*3/uLOhioHealthNucleated RBC/100 WBC (Bld) [Ratio]0.0 %OhioHealthPlatelet mean volume (Bld) [Entitic vol]12.3 fL9.4 - 12.4 fLOhioHealthPlatelets (Bld) [#/Vol]128 10*3/uLLowOhioHealthRBC (Bld) [#/Vol]3.61 10*6/uLLowOhioHealthWBC (Bld) [#/Vol]10.76 10*3/uLOhioHealthOhioHealthCBC WITH AUTO DIFFERENTIALon 98-92-1978FPDL NRBC0.0 %NormalRiVeterans Health AdministrationComment on above: Performed By: #### [id number] #### [facility] [address] [place] [address] Donavan Shafer M.D. [id number] NRBC ABS COUNT0.00 K/mcLNormal0.00-0.00RiVeterans Health AdministrationComment on above:Performed By: #### 82652 #### [facility] [address] [place] [address] Donavan Shafer M.D. [id number] ABSOLUTE COUNT0.03 K/mcLNormal0.00-0.30Ribellville medical centeride Evangelical HospitalComment on above:Performed By: #### 69746 #### [facility] [address] [place] [address] Donavan Shafer M.D. [id number]/100 WBC (Bld)0.3 %NormalRibellville medical centeride Evangelical HospitalComment on above:Performed By: #### [id number] #### [facility] [address] [place] [address] Donavan Shafer M.D. [id number] (Bld) [#/Vol]0.04 10*3/uLNormal0.00-0.50RiZanesville City Hospital HospitalComment on above:Performed By: #### 79827 #### [facility] [address] [place] [address] Donavan Shafer M.D. [id number]/100 WBC (Bld)0.4 %NormalRiZanesville City Hospital Hospital Comment on above:Performed By: #### 63578 #### [facility] [address] [place], [place] [address]Leighann Shafer M.D. [id number] distribution width (RBC) [Ratio]13.9 %Rzwzsb20.6-14.8 [facility] HospitalComment on above:Performed By: #### 60223 #### [facility] [address] [place], [place] [address] Donavan Sahfer M.D. [id number] (Bld) [Volume fraction]33.6 %Low36.0-46.0RiZanesville City Hospital HospitalComment on above:Performed By: #### 29789 #### [facility] [address] [place] [address] Donavan Shafer M.D. [id number] (Bld) [Mass/Vol]11.4 g/dLLow12.0-16.0M[facility] County HospitalComment on above:Performed By: #### 56423 #### [facility] [address] [place] [address] Donavan Shafer M.D. [id number] ABSOLUTE0.06 K/mcLNormal0.00-0.30RiVeterans Health Administration Comment on above:Performed By: #### [id number] #### [facility] [address] [place] [address] Donavan Shafer M.D. [id number] PERCENT0.60 %NormalRiVeterans Health AdministrationComment on above: Result Comment: The IG parameter is the percentage of metamyelocytes, myelocytes and promyelocytes.An immature granulocyte count (IG) of 1% or more suggests the possibility of infection, an IG countof 3% is very likely related to an infection.Performed By: #### [id number] #### [facility] [address] [place], [place] [address] Donavan Shafer M.D. [id number] (Bld) [#/Vol]1.00 10*3/uLNormal0.90-4.00[facility] County HospitalComment on above:Performed By: #### [id number] #### [facility] [address] [place], [place] [address] Donavan Shafer M.D. [id number]/100 WBC (Bld)9.3 %[facility] Comment on above:Performed By: #### [id number] #### [facility] [address] [place], [place] [address] Donavan Shafer M.D. [id number] (RBC) [Entitic mass]31.6 zpFgpvgr71.0-34.0[facility] HospitalComment on above:Performed By: #### 94470 #### [facility] [address] [place] [address] Donavan Shafer M.D. [id number] (RBC) [Entitic vol]93.1 mYQldter52.0-100.0[facility] HospitalComment on above:Performed By: #### [id number] #### [facility] [address] [place] [address] Donavan Shafer M.D. [id number] CORPUSCULAR HEMOGLOBIN CONC33.9 g/lWDrbmim71.0-37.0RiversPremier Health [facility] HospitalComment on above:Performed By: #### 69962 #### [facility] [address] [place] [address] Donavan Shafer M.D. [id number] (Bld) [#/Vol]1.11 10*3/uLHigh0.30-0.90RiversPremier Health [facility] HospitalComment on above:Performed By: #### [id number] #### [facility] [address] [place] [address] Donavan Shafer M.D. [id number]/100 WBC (Bld)10.3 %NormalRiZanesville City Hospital HospitalComment on above:Performed By: #### 07291 #### [facility] [address] [place], [place] [address] Donavan Shafer M.D. [id number] ABSOLUTE COUNT8.52 K/mcLHigh1.70-7.00RiZanesville City Hospital HospitalComment on above:Performed By: #### 74741 #### [facility] [address] [place] [address] Donavan Shafer M.D. [id number]/100 WBC (Bld)79.1 %NormalRiVeterans Health Administration Comment on above:Performed By: #### [id number] #### [facility] [address] [place], [place] [id number] Donavan Shafer M.D. [id number] mean volume (Bld) [Entitic vol]12.3 fLNormal9.4-12.4[facility]iversProv[facility] HospitalComment on above:Performed By: #### [id number] #### [facility] [address] [place] [address] Donavan Shafer M.D. [id number] (Bld) [#/Vol]128 10*3/mCFev736-224Zoosdybyh Methodist HospitalComment on above:Performed By: #### [id number] #### [facility] [address] [place] [address] Donavan Shafer M.D. [id number] (Bld) [#/Vol]3.61 10*6/uLLow4.00-5.20RiVeterans Health Administration Comment on above:Performed By: #### [id number] #### [facility] [address] [place] [address] Donavan Shafer M.D. [id number] (Bld) [#/Vol]10.76 10*3/uLNormal4.50-11.00RiVeterans Health AdministrationComment on above:Performed By: #### [id number] #### [facility] [address] [place], [place] [address] Donavan Shafer M.D. [id number] 17-81-0769ZBUPIUCQKQ WAUUJ065 mg/cTKsui459-649GbrkokzxcVeterans Health AdministrationComment on above:Performed By: #### [id number] #### [facility] [address] [place] [address] Donavan Shafer M.D. [id number] By: Adelaida Gaspar on 76-18-9870Saegjnikbn Coag (PPP) [Mass/Vol]541 mg/vOOnbx558 - 483 mg/dLOhioHealthFibrinogen Coag (PPP) [Mass/Vol]Ordered By: Adelaida Gaspar on 38-28-5902Llihunhhwyvzyv and review of laboratory resultsAbnormalOhioHealthOhioHealthINR Coag (PPP) [Relative time]on 25-59-9442Ckqdgejjfpkqdi and review of laboratory resultsNormalOhioHealthPT Coag (PPP) [Time]13.0 sOhioHealthDuring the induction phase of oral anticoagulation, the INR may not reflect the anticoagulation status of the patient. Therapeutic ranges for INR's are: Most clinical situations: INR 2.0-3.0 Mechanical Prosthetic Valve: INR 2.5-3.5 Critical: INR >5.0OhioHealthOhioHealthPT/INRon 68-18-9373YQD Coag (PPP) [Relative time]1.0 {INR}0.8 - 1.1OhioHealthINR Coag (PPP) [Relative time]1.0 {INR}Normal0.8-1.1RMercy Health St. Elizabeth Youngstown HospitalComment on above:Order Comment: During the induction phase of oral anticoagulation, the INR may not reflect the anticoagulation status of the patient. Therapeutic ranges for INR's are:Most clinical situations: INR 2.0-3.0Mechanical Prosthetic Valve: INR 2.5- 3.5Critical: INR >5.0Performed By: #### [id number] #### [facility] [address] [place] [address] Donavan Shafer M.D. [id number] Coag (PPP) [Time]13.0 lUffxjy45.8-14.3RMercy Health St. [facility] Comment on above:Order Comment: During the induction phase of oral anticoagulation, the INR may not reflect the anticoagulation status of the patient. Therapeutic ranges for INR's are:Most clinical situations: INR 2.0- 3.0Mechanical Prosthetic Valve: INR 2.5-3.5Critical: INR >5.0Performed By: #### [id number] #### [facility] [address] [place] [address] Donavan Shafer M.D. [id number] Coag (Bld) [Time]on 56-22-2797Miyhnydxsttyww and review of laboratory resultsNormalOhioHealthTherapeutic range for APTT's is 68 - 104 secondsOhioHealthOhioHealthABORH VERIFICATIONon 31-55-2295GRZ and Rh group Nom (Bld)Blood group O Rh(D) positiveNoUniversity Hospitals Geauga Medical CenterComment on above:Performed By: #### [id number] #### [facility] [address] [place] [address] Donavan Shafer M.D. [id number] and Rh group Nom (Bld)ABO/Rh VerificationNoUniversity Hospitals Geauga Medical CenterComment on above:Result Comment: Patient's ABO/Rh is verified.Performed By: #### [id number] #### [facility] [address] [place] [address] Donavan Shafer M.D. [id number] Verificationon 91-77-1480MGB and Rh group Nom (Bld)Blood group O Rh(D) positiveOhioHealthABO and Rh group Nom (Bld)ABO/Rh VerificationOhioHealth Comment on above:Patient's ABO/Rh is verified.[facility] 74-72-5568dRRP Coag (Bld) [Time]27 sOhiTrinity Health SystemthaPTT Coag (Bld) [Time]27 tXhlvcv96-06VizlfafowMorrow County HospitalComment on above:Order Comment: During the induction phase of oral anticoagulation, the INR may not reflect the anticoagulation status of the patient. Therapeutic ranges for INR's are: Most clinical situations: INR 2.0-3.0 Mechanical Prosthetic Valve: INR 2.5-3.5 Critical: INR >5.0Performed By: #### [id number] #### [facility] [address] [place] [address] Donavan Shafer M.D. [id number] type and Indirect antibody screen panel (Bld)on 82-18-3726IFZ and Rh group Nom (Bld)Blood group O Rh(D) positiveOhioHealthBlood group antibody screen QlNegativeOhioHealthSpecimen Ssmagqc2601/23/2024 23:59 ESTOhioHealth Bellevue HospitalCBCon 71-28-7274UWWU NRBC0.0 %NormalRiVeterans Health Administration Comment on above:Performed By: #### [id number] #### [facility] [address] [place], [place] [address] Donavan Shafer M.D. [id number] NRBC ABS COUNT0.00 K/mcLNormal0.00-0.00RiVeterans Health AdministrationComment on above:Performed By: #### [id number] #### [facility] [address] [place], [place] [address] Donavan Shafer M.D. [id number] distribution width (RBC) [Ratio]14.0 %Iumeue38.6-14.8 [facility] HospitalComment on above:Performed By: #### [id number] #### [facility] [address] [place], [place] [address] Donavan Shafer M.D. [id number] (Bld) [Volume fraction]36.3 %Oksvrt44.0-46.0RiZanesville City Hospital HospitalComment on above:Performed By: #### [id number] #### [facility] [address] [place] [address] Donavan Shafer M.D. [id number] (Bld) [Mass/Vol]12.2 g/qSCnbjqv41.0-16.0RiZanesville City Hospital HospitalComment on above:Performed By: #### [id number] #### [facility] [address] [place] [address] Donavan Shafer M.D. [id number] (RBC) [Entitic mass]31.3 llOeqqzp35.0-34.0R[facility] Evangelical HospitalComment on above:Performed By: #### [id number] #### [facility] [address] [place] [address] Donavan Shafer M.D. [id number] (RBC) [Entitic vol]93.1 wAPoilzt82.0-100.0R[facility] Evangelical HospitalComment on above:Performed By: #### [id number] #### [facility] [address] [place] [address] Donavan Shafer M.D. [id number] CORPUSCULAR HEMOGLOBIN CONC33.6 g/fJWfmbrb12.0-37.0RiZanesville City Hospital HospitalComment on above:Performed By: #### [id number] #### [facility] [address] [place] [address] Donavan Shafer M.D. [id number] mean volume (Bld) [Entitic vol]12.1 fLNormal9.4-12.4R[facility] Evangelical HospitalComment on above:Performed By: #### [id number] #### [facility] [address] [place] [address] Donavan Shafer M.D. [id number] (Bld) [#/Vol]129 10*3/yYCza062-051Ptyqymbuo Methodist HospitalComment on above:Performed By: #### [id number] #### [facility] [address] [place] [address] Donavan Shafer M.D. [id number] (Bld) [#/Vol]3.90 10*6/uLLow4.00-5.20[facility] Comment on above:Performed By: #### [id number] #### [facility] [address] [place] [address] Donavan Shafer M.D. [id number] (Bld) [#/Vol]10.05 10*3/uLNormal4.50-11.00Morrow County HospitalComment on above:Performed By: #### [id number] #### [facility] [address] [place] [address] Donavan Shafer M.D. [id number] panel Auto (Bld)on 96-40-5739Hejnzizflkc distribution width (RBC) [Entitic vol]14.0 %11.6 - 14.8 %OhioHealthHematocrit (Bld) [Volume fraction]36.3 %36.0 - 46.0 %OhioHealthHemoglobin (Bld) [Mass/Vol]12.2 g/dL12.0 - 16.0 g/dL OhioHealthInterpretation and review of laboratory resultsAbnormalOhioHealthMCH (RBC) [Entitic mass]31.3 pg26.0 - 34.0 pgOhioHealthMCHC (RBC) [Mass/Vol]33.6 g/dL31.0 - 37.0 g/dLOhioHealthMCV (RBC) [Entitic vol]93.1 fL80.0 - 100.0 fL OhioHealthNucleated RBC (Bld) [#/Vol]0.00 10*3/uLOhioHealthNucleated RBC/100 WBC (Bld) [Ratio]0.0 %OhioHealthPlatelet mean volume (Bld) [Entitic vol]12.1 fL9.4 - 12.4 fLOhioHealthPlatelets (Bld) [#/Vol]129 10*3/uLLowOhioHealthRBC (Bld) [#/Vol]3.90 10*6/uLLowOhioHealthWBC (Bld) [#/Vol]10.05 10*3/uLOhioHealth OhioLima City HospitalCOMPREHENSIVE METABOLIC PANELon 95-48-0074Kxpmpio [Mass/Vol]3.5 g/dL Normal3.2-5.2RMercy Health St. Elizabeth Youngstown HospitalComment on above:Order Comment: [facility] has implemented the eGFR calculation approach that does not have a coefficient for race that conforms to the NKF-ASN Task Force Recommendations.Performed By: #### [id number] #### [facility] [address] [place] [address] Donavan Shafer M.D. [id number] [Catalytic activity/Vol]163 U/MRmxn02-611LmvhiqdljVeterans Health AdministrationComment on above:Order Comment: [facility] has implemented the eGFR calculation approach that does not have a coefficient for race that conforms to the NKF-ASN Task Force Recommendations.Performed By: #### [id number] #### [facility] [address] [place] [address] Donavan Shafer M.D. [id number] [Catalytic activity/Vol]14 U/LNormal0-35 U/[facility] on above:Order Comment: [facility] has implemented the eGFR calculation approach that does not have a coefficient for race that conforms to the NKF-ASN Task Force Recommendations.Performed By: #### [id number] #### [facility] [address] [place], [place] [address] Donavan Shafer M.D. [id number] gap [Moles/Vol]16 mmol/VOnuegm60-57KpgpsfhotMorrow County Hospital Comment on above:Order Comment: [facility] has implemented the eGFR calculation approach that does not have a coefficient for race that conforms to the NKF-ASN Task Force Recommendations.Performed By: #### [id number] #### [facility] [address] [place], [place] [address] Donavan Shafer M.D. [id number] [Catalytic activity/Vol]18 U/LNormal0-35 U/[facility] CenterComformerly [facility] on above:Order Comment: [facility] has implemented the eGFR calculation approach that does not have a coefficient for race that conforms to the NKF-ASN Task Force Recommendations.Performed By: #### [id number] #### [facility] [address] [place], [place] [address] Donavan Shafer M.D. [id number] [Mass/Vol]0.3 mg/dLNormal0.0-1.3RMercy Health St. [facility] Comment on above:Order Comment: [facility] has implemented the eGFR calculation approach that does not have a coefficient for race that conforms to the NKF-ASN Task Force Recommendations.Performed By: #### [id number] #### [facility] [address] [place], [place] [address] Donavan Shafer M.D. [id number] [Mass/Vol]9.2 mg/dLNormal8.4-10.2RMercy Health St. [facility] Comment on above:Order Comment: [facility] has implemented the eGFR calculation approach that does not have a coefficient for race that conforms to the NKF-ASN Task Force Recommendations.Performed By: #### [id number] #### [facility] [address] [place] [address] Donavan Shafer M.D. [id number] [Moles/Vol]107 mmol/PCyccof93-806KjmuoxvrfVeterans Health Administration Comment on above:Order Comment: [facility] has implemented the eGFR calculation approach that does not have a coefficient for race that conforms to the NKF-ASN Task Force Recommendations.Performed By: #### [id number] #### [facility] [address] [place] [address] Donavan Shafer M.D. [id number] [Mass/Vol]0.54 mg/dLNormal0.40-1.10RiVeterans Health AdministrationComment on above:Order Comment: [facility] has implemented the eGFR calculation approach that does not have a coefficient for race that conforms to the NKF-ASN Task Force Recommendations.Performed By: #### [id number] #### [facility] [address] [place], [place] [address] Donavan Shafer M.D. [id number] mL/min/1.73 z5Wtsuvt>=60RiVeterans Health AdministrationComment on above:Order Comment: [facility] has implemented the eGFR calculation approach that does not have a coefficient for race that conforms to the NKF-ASN Task Force Recommendations.Result Comment: Estimated GFR was calculated using the 2020 CKD-EPI creatinine equation.Performed By: #### [id number] #### [facility] [address] [place], [place] [address] Donavan Shafer M.D. [id number] [Mass/Vol]84 mg/aWVspoxl98-38EosyzdndfVeterans Health Administration Comment on above:Order Comment: [facility] has implemented the eGFR calculation approach that does not have a coefficient for race that conforms to the NKF-ASN Task Force Recommendations.Performed By: #### [id number] #### [facility] [address] [place], [place] [address] Donavan Shafer M.D. [id number] (Bld) [Moles/Vol]19 mmol/USki51-49CjvbfraycVeterans Health Administration Comment on above:Order Comment: [facility] has implemented the eGFR calculation approach that does not have a coefficient for race that conforms to the NKF-ASN Task Force Recommendations.Performed By: #### [id number] #### [facility] [address] [place], [place] [address] Donavan Shafer M.D. [id number] [Moles/Vol]4.1 mmol/LNormal3.5-5.1RiversProvidence HospitalComment on above:Order Comment: [facility] has implemented the eGFR calculation approach that does not have a coefficient for race that conforms to the NKF-ASN Task Force Recommendations.Performed By: #### [id number] #### [facility] [address] [place] [address] Donavan Shafer M.D. [id number] [Mass/Vol]6.6 g/dLNormal6.0-8.0[facility] Comment on above:Order Comment: [facility] has implemented the eGFR calculation approach that does not have a coefficient for race that conforms to the NKF-ASN Task Force Recommendations.Performed By: #### [id number] #### [facility] [address] [place], [place] [address] Donavan Shafer M.D. [id number] [Moles/Vol]138 mmol/CXhtdpu165-174NgnkmfrdyVeterans Health Administration Comment on above:Order Comment: [facility] has implemented the eGFR calculation approach that does not have a coefficient for race that conforms to the NKF-ASN Task Force Recommendations.Performed By: #### [id number] #### [facility] [address] [place], [place] [address] Donavan Shafer M.D. [id number] nitrogen [Mass/Vol]8 mg/dLNormal8-25RiVeterans Health Administration Comment on above:Order Comment: [facility] has implemented the eGFR calculation approach that does not have a coefficient for race that conforms to the NKF-ASN Task Force Recommendations.Performed By: #### [id number] #### [facility] [address] [place], [place] [address] Donavan Shafer M.D. [id number] nitrogen/Creatinine [Mass ratio]14.8 mg/qxUgadqf80.0-20.0 [facility] HospitalComment on above:Order Comment: [facility] has implemented the eGFR calculation approach that does not have a coefficient for race that conforms to the NKF-ASN Task Force Recommendations.Performed By: #### [id number] #### [facility] [address] [place], [place] [address] Donavan Shafer M.D. [id number] metabolic 2000 panelon 96-66-7412Cvdlwnk [Mass/Vol]3.5 g/dL3.2 - 5.2 g/dLOhioHealthALP [Catalytic activity/Vol]163 U/LHigh40 - 140 U/L OhioHealthALT [Catalytic activity/Vol]14 U/L0-35 U/LOhioHealthAnion gap [Moles/Vol]16 mmol/L10 - 20 mmol/LOhioHealthAST [Catalytic activity/Vol]18 U/L0- 35 U/LOhioHealthBilirubin [Mass/Vol]0.3 mg/dL0.0 - 1.3 mg/dLOhioHealthCalcium [Mass/Vol]9.2 mg/dL8.4 - 10.2 mg/dLOhioHealthChloride [Moles/Vol]107 mmol/L98 - 108 mmol/LOhioHealthCreatinine [Mass/Vol]0.54 mg/dL0.40 - 1.10 mg/dLOhioHealth GFR/1.73 sq M.predicted CKD-EPI (S/P/Bld) [Vol rate/Area]130- PINFOhioHealth Comment on above:Estimated GFR was calculated using the 2020 CKD-EPI creatinine equation.Glucose [Mass/Vol]84 mg/dL65 - 99 mg/dLOhioHealthHCO3 [Moles/Vol]19 mmol/LLow21 - 32 mmol/LOhioHealthInterpretation and review of laboratory results AbnormalOhioHealthPotassium [Moles/Vol]4.1 mmol/L3.5 - 5.1 mmol/LOhioHealth Protein [Mass/Vol]6.6 g/dL6.0 - 8.0 g/dLOhioHealthSodium [Moles/Vol]138 mmol/L 135 - 145 mmol/LOhioHealthUrea nitrogen [Mass/Vol]8 mg/dL8 - 25 mg/dLOhioHealth Urea nitrogen/Creatinine [Mass ratio]14.8 mg/mg10.0 - 20.0OhioHealthOhioHealth [facility] has implemented the eGFR calculation approach that does not have a coefficient for race that conforms to the NKF-ASN Task Force Recommendations.OhioHealthFIBRINOGENon 36-17-4495VOQYZHIIDB ESBUE572 mg/dLHigh 224-483RiVeterans Health AdministrationComment on above:Performed By: #### [id number] #### [facility] [address] [place] [address] Donavan Shafer M.D. [id number] By: Uziel Reagan on 56-11-4468Gnjjvmxuwa Coag (PPP) [Mass/Vol]573 mg/hZVzzx939 - 483 mg/dLOhioHealthFibrinogen Coag (PPP) [Mass/Vol]Ordered By: Uziel Reagan on 15-10-8888Etlyawuzdclzrh and review of laboratory resultsAbnormalOhioHealthHEPATITIS C ANTIBODYon 45-05-9738KKSDPNGIS C ANTIBODYNegativeNormalNegativeRiVeterans Health AdministrationComment on above: Order Comment: Test performed using Dorie KERRI immunoassay systemPerformed By: #### [id number] #### [place] [id number] Donavan Shafer M.D. [id number] C Antibodyon 35-29-6096AHR Ab Ql (S)NegativeNegative OhioHealthInterpretation and review of laboratory resultsNormalOhioHealthTest performed using Dorie KERRI immunoassay systemOhioHealthOhioHealthINR Coag (PPP) [Relative time]on 41-15-5248LK Coag (PPP) [Time]13.3 sOhioHealthDuring the induction phase of oral anticoagulation, the INR may not reflect the anticoagulation status of the patient. Therapeutic ranges for INR's are: Most clinical situations: INR 2.0-3.0 Mechanical Prosthetic Valve: INR 2.5-3.5 Critical: INR >5.0OhioHealthLDHon 53-20-9842MPY Lactate to pyruvate reaction [Catalytic activity/Vol]167 U/L100 - 250 U/LOhioHealthLDH [Catalytic activity/Vol]167 U/UIztgbn002-950SyvrqumleVeterans Health AdministrationComment on above: Performed By: #### [id number] #### [facility] [address] [place], [place] [address] Donavan Shafer M.D. [id number] Lactate to pyruvate reaction [Catalytic activity/Vol]on 05-15-2024 Interpretation and review of laboratory resultsNormalOhioHealthNo Panel Informationon 48-06-7901ToahVrdjbyZavfalutuemmhe and review of laboratory resultsNormalOhioHealthNo Panel InformationOrdered By: Tegantrip Genehanna on 94-11-1520QwxpIiokokWFV URINALYSIS DIPSTICK,AUTO - RALSon 24-15-0918UPE BILIRUBIN, URINENegativeNormalNegativeRiverside Evangelical HospitalComment on above:Performed By: #### [id number] #### [facility] [address] [place] [address] [id number] RMHPOCPOC BLOOD, URINEModerateAbnormalNegativeRiverside Evangelical Hospital Comment on above:Performed By: #### [id number] #### [facility] [address] [place] [address] [id number] RMHPOCPOC GLUCOSE, URINENegativeNormalNegativeRiverside EvangelicalCh[facility] Comment on above:Performed By: #### [id number] #### [facility] [address] [place] [address] [id number] RMHPOCPOC KETONES, URINENegativeNormalNegativeRiverside Evangelical Hospital Comment on above:Performed By: #### [id number] #### [facility] [address] [place] [address] [id number] RMHPOCPOC LEUKOCYTE ESTERASE, URINENegativeNormalNegativeRiverside EvangelicalChilton Memorial HospitalComment on above:Performed By: #### [id number] #### [facility] [address] [place] [address] [id number] RMHPOCPOC NITRITE, URINENegativeNormalNegativeRiverside Evangelical Hospital Comment on above:Performed By: #### [id number] #### [facility] [address] [place] [address] [id number] RMHPOCPOC PH, URINE7.5Becjss2.0-7.0Riverside EvangelicalChilton Memorial HospitalComment on above: Performed By: #### [id number] #### [facility] [address] [place] [address] [id number] RMHPOCPOC SPECIFIC GRAVITY1.297Lwxwcj7.005-1.025[facility] Comment on above:Performed By: #### [id number] #### [facility] [address] [place] [address] [id number] RMHPOCPOC UROBILINOGEN0.2 mg/dLNormal< 2.0RiVeterans Health AdministrationComment on above:Performed By: #### [id number] #### [facility] [address] [place] [address] [id number] RMHPOCProtein (U) [Mass/Vol]100 mg/dLAbnormalNegativeMorrow County HospitalComment on above:Performed By: #### [id number] #### [facility] [address] [place] [address] [id number] RMHPOCPOC Urinalysis Dipstick, Autoon 65-47-5206Uhhyofxjj Ql (U)NegativeNegative OhioHealthGlucose Ql (U)NegativeNegative mg/dLOhioHealthHemoglobin Ql (U) ModerateAbnormalNegativeOhioHealthInterpretation and review of laboratory resultsAbnormalOhioHealthKetones Ql (U)NegativeNegative mg/dLOhioHealthLeukocyte esterase Test strip Ql (U)NegativeNegativeOhioHealthNitrite Ql (U)Negative NegativeOhioHealthpH (U)7.0 [pH]5.0 - 7.0OhioHealthProtein Ql (U)100 mg/dL AbnormalNegativeOhioHealthSpecific gravity (U) [Rel density]1.0101.005 - 1.025 OhioHealthUrobilinogen Qn (U)0.2 mg/dLNINF - 2.0 mg/dLOhioHealthOhioHealth PROTEIN / CREATININE RATIO, URINEon 31-68-7822HNJRGTZHZH,UR53.7 mg/dLNormal [facility] HospitalComment on above:Order Comment: Please send stat Performed By: #### [id number] #### [facility] [address] [place] [address] Donavan Shafer M.D. [id number] (U) [Mass/Vol]26.4 mg/dLNormalRiVeterans Health Administration Comment on above:Order Comment: Please send statPerformed By: #### [id number] #### [facility] [address] [place], [place] [address] Donavan Shafer M.D. [id number] CREATININE RATIO0.5 ratioHigh0.0-0.2RMercy Health St. Elizabeth [facility]stown HospitalComment on above:Order Comment: Please send statPerformed By: #### [id number] #### [place] [id number] Donavan Shafer M.D. [id number]/INRon 77-47-6503SZY Coag (PPP) [Relative time]1.0 {INR}0.8 - 1.1 [facility] HospitalIN[facility] Coag (PPP) [Relative time]1.0 {INR}Normal0.8-1.1RMercy Health St. Elizabeth Youngstown HospitalComment on above:Order Comment: During the induction phase of oral anticoagulation, the INR may not reflect the anticoagulation status of the patient. Therapeutic ranges for INR's are: Most clinical situations: INR 2.0-3.0 Mechanical Prosthetic Valve: INR 2.5-3.5 Critical: INR >5.0Performed By: #### [id number] #### [facility] [address] [place], [place] [address] Donavan Shafer M.D. [id number] Coag (PPP) [Time]13.3 rOtronw49.8-14.3RMercy Health St. [facility] Comment on above:Order Comment: During the induction phase of oral anticoagulation, the INR may not reflect the anticoagulation status of the patient. Therapeutic ranges for INR's are: Most clinical situations: INR 2.0-3.0 Mechanical Prosthetic Valve: INR 2.5-3.5 Critical: INR >5.0Performed By: #### [id number] #### [facility] [address] [place] [address] Donavan Shafer M.D. [id number] / Creatinine Ratio, UrineOrdered By: Misael Zuleta on 01-20-2024 Protein/Creatinine (U) [Ratio]0.5HighOhioHealthProtein/Creatinine (U) [Ratio] Ordered By: Misael Zuleta on 42-32-9404Vhfcfhovqe (U) [Mass/Vol]53.7 mg/dL IllinoisHealthInterpretation and review of laboratory resultsAbnormalOhioHealth Protein (U) [Mass/Vol]26.4 mg/dLOhioHealthOhioHealthSYPHILIS ANTIBODYon 80-83-4796CRHROAZE TREPONEMAL ANTIBODYNegativeNormalNegativeRiVeterans Health AdministrationComment on above:Performed By: #### [id number] #### [facility] [address] [place] [address] Donavan Shafer M.D. [id number]. pallidum IgG Ql (S)on 91-26-9688Hhljqgqoqxvtoe and review of laboratory resultsNormalOhioHealthT. pallidum Ab Ql (S)NegativeNegative OhioHealthOhioHealthTYPE AND SCREENon [id number] AND SCREENABORH: O Positive AB SCREEN: Negative EXPIRATION DATE: 01/23/2024 23:59 ESTNormalRiVeterans Health AdministrationComment on above:Performed By: #### [id number] #### [facility] [address] [place] [address] Donavan Shafer M.D. [id number] ACIDon 98-29-9634Qpbmc [Mass/Vol]5.4 mg/dLNormal2.4-7.0RiVeterans Health AdministrationComment on above:Performed By: #### [id number] #### [facility] [address] [place] [address] Donavan Shafer M.D. [id number] [Mass/Vol]on 01-49-8094Erzxxvulyissof and review of laboratory resultsNormalOhioHealthOhioHealthUric Acidon 30-08-9300Opjtv [Mass/Vol]5.4 mg/dL 2.4 - 7.0 mg/dLOhioHealthaPTT Coag (Bld) [Time]on 99-49-8359Iroagxpvlde range for APTT's is 68 - 104 secondsOhioHealthComprehensive metabolic 2000 panelon 54-47-6949Hondzih [Mass/Vol]4.7 g/dL3.5 - 4.8 g/dLTrinity HealthALP [Catalytic activity/Vol]44 U/LTrinity HealthALT [Catalytic activity/Vol]13 U/LTrinity HealthAnion gap [Moles/Vol]11 mmol/L6 - 18Trinity HealthAST [Catalytic activity/Vol]17 U/LTrinity HealthBilirubin [Mass/Vol]0.6 mg/dL0.3 - 1.2 mg/dL Soila HealthCalcium [Mass/Vol]9.5 mg/dL8.9 - 10.3 mg/dLTrinity HealthChloride [Moles/Vol]103 mmol/L98 - 107 mmol/LTrinity HealthCO2 [Moles/Vol]25 mmol/L22 - 32 mmol/LTrinity HealthCreatinine [Mass/Vol]0.71 mg/dL0.60 - 1.30 mg/dLTrinity HealthGFR/1.73 sq M.predicted among non-blacks MDRD (S/P/Bld) [Vol rate/Area]121 mL/min/{1.73_m2}- PINFTrinity HealthComment on above:Effective June 15, 2022, calculation based on the Chronic Kidney Disease Epidemiology Collaboration (CKD- EPI) equation refit without adjustment for race.Glucose [Mass/Vol]78 mg/dL70 - 99 mg/dLTrinity HealthPotassium [Moles/Vol]4.2 mmol/L3.6 - 5.1 mmol/LTrinity HealthProtein [Mass/Vol]7.8 g/dL6.1 - 7.9 g/dLTrinity HealthSodium [Moles/Vol] 139 mmol/L136 - 145 mmol/LTrinity HealthUrea nitrogen [Mass/Vol]13 mg/dL8 - 20 mg/dLTrinity HealthUrea nitrogen/Creatinine [Mass ratio]18.3 mg/mg12.0 - 20.0 [facility] Qn1.27 m[IU]/LNormal0.45-5.33[facility] on above:Performed By: #### [id number] #### [facility] [address], [place] [address]Jtxdtvoi and platelets WO differential panel (Bld)on 55-14-5706Eirmorswp (Bld) [#/Vol]0.03 10*3/uLTrinity HealthBasophils/100 WBC (Bld)0.5 %0.0 - 2.0 %Soila HealthEosinophils (Bld) [#/Vol]0.13 10*3/uLTrinity HealthEosinophils/100 WBC (Bld)2.0 %0.0 - 7.0 %Soila HealthErythrocyte distribution width (RBC) [Ratio]12.5 %11.0 - 14.8 %Soila HealthHematocrit (Bld) [Volume fraction]43.2 %34.3 - 47.9 %Soila HealthHemoglobin (Bld) [Mass/Vol]14.6 g/dL12.0 - 16.0 g/dLTrinadams county regional medical center HealthImmature granulocytes (Bld) [#/Vol]0.01 10*3/uLTrinity HealthImmature granulocytes/100 WBC (Bld)0.2 %0.0 - 1.2 %Soila HealthInterpretation and review of laboratory resultsAbnormal Soila HealthLymphocytes (Bld) [#/Vol]1.06 10*3/uLTrinity HealthLymphocytes/100 WBC (Bld)16.4 %Low17.9 - 49.6 %SoilaSouthwood Psychiatric HospitalH (RBC) [Entitic mass]31.1 pg SoilaSouthwood Psychiatric HospitalHC (RBC) [Mass/Vol]33.8 g/dL30.8 - 35.3 g/dLTrinadams county regional medical center HealthMCV (RBC) [Entitic vol]91.9 fLTrinity HealthMonocytes (Bld) [#/Vol]0.65 10*3/uL Soila HealthMonocytes/100 WBC (Bld)10.0 %0.0 - 12.0 %Soila HealthNeutrophils (Bld) [#/Vol]4.60 10*3/uLTrinity HealthNeutrophils/100 WBC (Bld)70.9 %38.1 - 75.5 %Soila HealthPlatelet mean volume (Bld) [Entitic vol]10.6 fLTrinity HealthPlatelets (Bld) [#/Vol]220 10*3/uLTrinity HealthRBC (Bld) [#/Vol]4.70 10*6/uLTrinity HealthWBC (Bld) [#/Vol]6.5 10*3/uLTrinity HealthTrinity Health Basophils (Bld) [#/Vol]0.03 10*3/uLNormal0.00-0.20[facility] Comment on above:Performed By: #### 49222-4 #### [facility] ([facility]) LAB [address] [place] [address]Kbvxdheck/100 WBC (Bld)0.5 %Normal0.0-2.0[facility] County HospitalComment on above:Performed By: #### 49562-5 #### [facility] ([facility]) [facility] [address] [place] [address]Wmalfooioaa (Bld) [#/Vol]0.13 10*3/uLNormal0.00-0.70Mount [facility] HospitalComment on above:Performed By: #### 07678-3 #### [facility] ([facility]) [facility] [address] [place] [address]Diqrxjhjrrr/100 WBC (Bld)2.0 %Normal0.0-7.0[facility] HospitalComment on above:Performed By: #### 91990-1 #### [facility] ([facility]) [facility] [address] [place] [address]Eucnvfvdncd distribution width (RBC) [Ratio]12.5 %Normal 11.0-14.8[facility] HospitalComment on above:Performed By: #### 11048-0 #### [facility] ([facility]) LAB [address], [place] [address]Wmznnckrwd (Bld) [Volume fraction]43.2 %Mgenol11.3-47.9[facility] Care ColumbusComment on above:Performed By: #### 12145-4 #### [facility] ([facility]) [facility] [address], [place] [address]Xgaipczhwc (Bld) [Mass/Vol]14.6 g/wBRdzpyd94.0-16.0[facility] ColumbusComment on above:Performed By: #### 31197-7 #### [facility] ([facility]) [facility] [address] [place] [address]Tvfymgsg granulocytes (Bld) [#/Vol]0.01 10*3/uLNormal0.00-0.10 [facility] Columlincoln county medical centerComment on above:Performed By: #### 33933-3 #### [facility] ([facility]) [facility] [address], [place] [address]Xvwabbje granulocytes/100 WBC (Bld)0.2 %Normal0.0-1.2[facility] Columlincoln county medical centerComment on above:Performed By: #### 10016-0 #### [facility] ([facility]) [facility] [address], [place] [address]Djdwrlfinrt (Bld) [#/Vol]1.06 10*3/uLNormal1.00-4.80[facility] HospitalComment on above:Performed By: #### 62951-6 #### [facility] ([facility]) [facility] [address], [place] [address]Flciopvzmbz/100 WBC (Bld)16.4 %Low17.9-49.6[facility] Columlincoln county medical centerComment on above:Performed By: #### 06830-6 #### [facility] ([facility]) [facility] [address], [place] [address]TDG61.1 coqKdxtsf72.0-34.0[facility] ColumbusComment on above:Performed By: #### 65434-4 #### [facility] ([facility]) [facility] [address] [place], [place] [address]JDXD (RBC) [Mass/Vol]33.8 g/iFLyydlm38.8-35.3[facility] ColumbusComment on above:Performed By: #### 77823-2 #### [facility] ([facility]) [facility] [address], [place] [address]ATQ (RBC) [Entitic vol]91.9 pKTymvrb86.0-97.0[facility] ColumbusComment on above:Performed By: #### 83352-9 #### [facility] ([facility]) [facility] [address] [place] [address]Oxvuktnfl (Bld) [#/Vol]0.65 10*3/uLNormal0.00-0.90[facility] Care ColumbusComment on above:Performed By: #### 19915-6 #### [facility] ([facility]) [facility] [address] [place], [place] [address]Byalyuild/100 WBC (Bld)10.0 %Normal0.0-12.0[facility] Care ColumbusComment on above:Performed By: #### 49554-0 #### [facility] ([facility]) [facility] [address] [place], [place] [address]Zkhznatqlpy Absolute4.60 K/mcLNormal1.80-7.70[facility] Care ColumbusComment on above:Performed By: #### 50199-2 #### [facility] ([facility]) [facility] [address], [place] [address]Sdaqcmtxliy/100 WBC (Bld)70.9 %Xpbzns52.1-75.5[facility] Care ColumbusComment on above:Performed By: #### 23206-7 #### [facility] ([facility]) [facility] [address] [place], [place] [address]Mfamvdoh mean volume (Bld) [Entitic vol]10.6 fLNormal6.2-12.1 [facility] HospitalComment on above:Performed By: #### 50412-3 #### [facility] [place] [facility] [address], [place] [address]Uhrtktxuo (Bld) [#/Vol]220 10*3/oGYjsvcl290-480Ugblm Logan County HospitalComment on above:Performed By: #### 72691-8 #### [facility] [place] [facility] [address] [place] [address]ETD (Bld) [#/Vol]4.70 10*6/uLNormal3.74-5.34[facility] HospitalComment on above:Performed By: #### 84944-8 #### [facility] [place] [facility] [address] [place] [address]GOD (Bld) [#/Vol]6.5 10*3/uLNormal4.6-10.2[facility] HospitalComment on above:Performed By: #### 42752-3 #### [facility] [place] [facility] [address] [place] [address]Qesub panel with direct LDLon 46-71-3731Exoeneddbmq [Mass/Vol] 157 mg/dLNINF - 200 mg/dLTrinity HealthCholesterol in HDL [Mass/Vol]65 mg/dL40 - PINF mg/dLTrinity HealthCholesterol in LDL [Mass/Vol]78 mg/dLNINF - 100 mg/dL Soila HealthCholesterol in VLDL [Mass/Vol]14 mg/dL2 - 38 mg/dLTrinity Health Triglyceride [Mass/Vol]70 mg/dLNINF - 200 mg/dLTrinity HealthNo Panel Informationon 77-36-2487Otjytvdtkxjzmo and review of laboratory resultsNormal Soila HealthTrinity HealthTSH Qnon 72-64-8302Gauqjddqsxotsx and review of laboratory resultsNormalTrinity HealthTrinity HealthThyroid stimulating hormone on 82-20-9596CEL Qn1.27 m[IU]/LTrinity HealthBacterial vaginosis and vaginitis DNA panel Probe+sig amp (Vag fld)on 08-26-2022. glabrata DNA CARLI+non-probe Ql (Pos bld culture)NegativeNegativeTrinity HealthCandida sp rRNA Probe Ql (Vag fld)NegativeNegativeTrinity HealthInterpretation and review of laboratory resultsNormalTrinity VzmebcSGCG-GcO-3 (COVID-19) RNA CARLI+probe Ql (Unsp spec) NegativeNegativeTrinity HealthT. vaginalis Ag Ql (Vag fld)NegativeNegative Soila HealthTrinity HealthN. gonorrhoeae DNA CARLI+probe Ql (U)on 08-26-2022. trachomatis rRNA Probe Ql (Unsp spec)NegativeNegativeTrinity Health Interpretation and review of laboratory resultsNormalTrinity HealthN. gonorrhoeae rRNA Probe Ql (Unsp spec)NegativeNegativeTrinity HealthTrinity HealthHPV DNA Probe+sig amp Ql (Unsp spec)on 42-62-6633QPD RNANegativeNormal NegativeMount Logan County HospitalComment on above:Performed By: #### 58903-3 #### [facility] ([facility]) [facility] [address] [place], [place] [address]J gonorrhoea DNA Ur Ql CARLI+probeon 08-25-2022N. gonorrhoeae DNA CARLI+probe Ql (U)N. gonorrhoeae, RNA Probe Status = F Negative Chlamydia, RNA Probe Status = F NegativeNormalNegativeMount Logan County HospitalComment on above:Performed By: #### 22316-4 #### [facility] ([facility]) [facility] [address] [place], [place] [address]T. gonorrhoeae DNA CARLI+probe Ql (U)on 80-95-6669Brinblzpp vaginosis and vaginitis DNA panel Probe+sig amp (Vag fld)Bacterial vaginosis Status = F Negative Ashia Species Status = F Negative Ashia glabrata Status = F Negative Trichomonas vaginosis Status = F NegativeNormalNegativeMount Logan County HospitalComment on above:Performed By: #### 46817-8 #### [facility] ([facility]) [facility] [address] [place], [place] [address]Jkyswms Cmnt-Impon 61-78-5631Jkpeptt comment (Unsp spec) [Interp]F Z01.419, Z12.4 08/17/2022 NG NG Cervix SEE NOTE Satisfactory for Evaluation Endocervical/Transformation Zone component present SEE NOTE NEG SEE NOTE NEGATIVE FOR INTRAEPITHELIAL LESION OR MALIGNANCY SEE NOTE No Organisms Detected Test Performed at: [facility]/[address] [place], [place] Bree Baker MD, PhD TNP SEE NOTE [...] been evaluated with computer assisted technology. TNP TNPNormalMoNationwide Children's Hospital on above:Performed By: #### 8251- 1 #### LANEY [facility] [address] [place], [place] [id number]-qvkntltrwlnelh D3 [Mass/Vol]on 94-36-9227Bfhbyaaghvjhez and review of laboratory resultsAbnormalTrinity HealthTrinity Health Comprehensive metabolic 2000 panelon 13-71-5644Czzvczz [Mass/Vol]4.2 g/dL3.5 - 4.8 g/dLTrinity HealthALP [Catalytic activity/Vol]46 U/LTrinity HealthALT [Catalytic activity/Vol]13 U/LTrinity HealthAnion gap [Moles/Vol]7 mmol/L6 - 18 Soila HealthAST [Catalytic activity/Vol]15 U/LTrinity HealthBilirubin [Mass/Vol]0.4 mg/dL0.3 - 1.2 mg/dLTrinity HealthCalcium [Mass/Vol]9.0 mg/dL8.9 - 10.3 mg/dLTrinity HealthChloride [Moles/Vol]104 mmol/L98 - 107 mmol/LTrinity HealthCO2 [Moles/Vol]28 mmol/L22 - 32 mmol/LTrinity HealthCreatinine [Mass/Vol] 0.61 mg/dL0.60 - 1.30 mg/dLTrinity HealthGFR/1.73 sq M.predicted MDRD (S/P/Bld) [Vol rate/Area]128 mL/min/{1.73_m2}- PINFTrinAllegheny Valley HospitalComment on above: Effective June 15, 2022, calculation based on the Chronic Kidney Disease Epidemiology Collaboration (CKD-EPI) equation refit without adjustment for race. Glucose [Mass/Vol]93 mg/dL70 - 99 mg/dLTrinity HealthInterpretation and review of laboratory resultsAbnormalTrinity HealthPotassium [Moles/Vol]4.5 mmol/L3.6 - 5.1 mmol/LTrinity HealthProtein [Mass/Vol]7.0 g/dL6.1 - 7.9 g/dLTrinity Health Sodium [Moles/Vol]139 mmol/L136 - 145 mmol/LTrinity HealthUrea nitrogen [Mass/Vol]15 mg/dL8 - 20 mg/dLTrinity HealthUrea nitrogen/Creatinine [Mass ratio]24.6 mg/qqZyag49.0 - 20.0Trinity HealthVit D, 25-Rrwpjyb04.0 ng/mLLow 30.0-100.0[facility] HospitalComformerly [facility] on above:Result Comment: Deficient <20 ng/mL Insufficient 20 to 30 ng/mL Sufficient 30-100 ng/mL Toxic >100 ng/mLPerformed By: #### 24915-1 #### [facility] ([facility]) [facility] [address], [place] [address]IKQ Ab IA Qlon 35-29-3225Upvtgnumvhjywf and review of laboratory resultsNormalDepartment of [facility] HealthHIV 1+2 Ab IA.rapid Ql (Unsp spec)on 56-07-2347ZTR 1+2 Ab+HIV1 p24 Ag IA QlNon-ReactiveNonreactiveTrinity HealthInterpretation and review of laboratory resultsNormalTrinity Hospital-St. Joseph'Sity HealthThis is a 4th generation test (P24 AG,HIV-1 AB, HIV-2 AB) Specimens with preliminary reactive results will be confirmed by HIV1/2 Differentiation test ([employer]). THE IDENTITY OF A PERSON ON [...] A person who knowingly violates this confidentiality maybe found liable in a civil action and be responsible for compensitory damages and equitable relief. Soila HealthTrinity HealthHepatitis C AntibodyNon-ReactiveNormalNonreactive [facility] on above:Order Comment: This is a 4th generation test (P24 AG,HIV-1 AB, HIV-2 AB) Specimens with preliminaryreactive results will be confirmed by HIV1/2 Differentiation test ([employer] Being [email or web address]). THE IDENTITY OF A PERSON ON WHOM [...] A person who knowingly violates this confidentiality maybe found liable in a civil action and be responsible for compensitory damages and equitable relief.Performed By: #### 24398-8 #### [facility] ([facility] [place] LAB [address] [place], [place] [address]Gksuusdq and platelets WO differential panel (Bld)on 05-26-5313Ecrdriqko (Bld) [#/Vol]0.04 10*3/uLTrinity HealthBasophils/100 WBC (Bld)0.7 %0.0 - 2.0 %Soila HealthEosinophils (Bld) [#/Vol]0.25 10*3/uLTrinity HealthEosinophils/100 WBC (Bld)4.2 %0.0 - 7.0 %Soila HealthErythrocyte distribution width (RBC) [Ratio]12.6 %11.0 - 14.8 %Soila HealthHematocrit (Bld) [Volume fraction]40.5 %34.3 - 47.9 %Soila HealthHemoglobin (Bld) [Mass/Vol]13.6 g/dL12.0 - 16.0 g/dLTrinity HealthImmature granulocytes (Bld) [#/Vol]0.02 10*3/uLTrinity HealthImmature granulocytes/100 WBC (Bld)0.3 %0.0 - 1.2 %Soila HealthInterpretation and review of laboratory resultsAbnormal [facility] ReadingLymphocytes (Bld) [#/Vol]0.98 10*3/uLLowTrinadams county regional medical center Health Lymphocytes/100 WBC (Bld)16.4 %Low17.9 - 49.6 %[facility] CenterH (RBC) [Entitic mass]30.6 pgTrinSouthwood Psychiatric HospitalHC (RBC) [Mass/Vol]33.6 g/dL30.8 - 35.3 g/dLPenn Presbyterian Medical CenterV (RBC) [Entitic vol]91.2 fLTWellSpan Gettysburg HospitalMonocytes (Bld) [#/Vol]0.62 10*3/uLTrinity HealthMonocytes/100 WBC (Bld)10.4 %0.0 - 12.0 %[facility] Neutrophils (Bld) [#/Vol]4.06 10*3/uLTrlehigh valley hospital - pocono HealthNeutrophils/100 WBC (Bld)68.0 %38.1 - 75.5 %[facility] ReadingPlatelet mean volume (Bld) [Entitic vol]10.3 fL [facility] ReadingPlatelets (Bld) [#/Vol]243 10*3/uLTrinity HealthRBC (Bld) [#/Vol] 4.44 10*6/uLTrlehigh valley hospital - pocono HealthWBC (Bld) [#/Vol]6.0 10*3/uLTrlehigh valley hospital - pocono HealthTrinity HealthBasophils (Bld) [#/Vol]0.04 10*3/uLNormal0.00-0.20Mount [facility] County HospitalComment on above:Performed By: #### 70923-7 #### [facility] ([facility]) LAB [address], [place] [address]Fpbdwouuk/100 WBC (Bld)0.7 %Normal0.0-2.0Mount [facility] County HospitalComment on above:Performed By: #### 67545-6 #### [facility] ([facility]) [facility] [address] [place], [place] [address]Ujpingbtgob (Bld) [#/Vol]0.25 10*3/uLNormal0.00-0.70Mount Parkton East ColumbusComment on above:Performed By: #### 81533-6 #### [facility] ([facility]) [facility] [address] [place], [place] [address]Riaktvhgpzy/100 WBC (Bld)4.2 %Normal0.0-7.0[facility] County HospitalComment on above:Performed By: #### 72701-4 #### [facility] ([facility]) [facility] [address] [place] [address]Vyoovucsuxn distribution width (RBC) [Ratio]12.6 %Normal 11.0-14.8Mount [facility] County HospitalComment on above:Performed By: #### 05749-1 #### [facility] ([facility]) [facility] [address] [place] [address]Sxkfrpxbjt (Bld) [Volume fraction]40.5 %Odjygo51.3-47.9Mount [facility] County HospitalComment on above:Performed By: #### 81695-5 #### [facility] ([facility]) LAB [address] [place] [address]Rdzppovsjv (Bld) [Mass/Vol]13.6 g/aRPqwbcs21.0-16.0[facility] HospitalComment on above:Performed By: #### 16889-0 #### [facility] ([facility]) LAB [address] [place] [address]Yysaixkz granulocytes (Bld) [#/Vol]0.02 10*3/uLNormal0.00-0.10 [facility] HospitalComformerly [facility] on above:Performed By: #### 68784-9 #### [facility] ([facility]) [facility] [address] [place] [address]Qtlkqqux granulocytes/100 WBC (Bld)0.3 %Normal0.0-1.2Mount [facility] County HospitalComment on above:Performed By: #### 81513-7 #### [facility] ([facility]) [facility] [address], [place] [address]Ekxnlylqmha (Bld) [#/Vol]0.98 10*3/uLLow1.00-4.80[place] ColumbusComment on above:Performed By: #### 19910-1 #### [facility] ([facility]) [facility] [address] [place] [place], [place] [address]Tenlzopezvv/100 WBC (Bld)16.4 %Low17.9-49.6[facility] [place] [facility] ColumbusComment on above:Performed By: #### 42459-5 #### [facility] ([facility]) LAB [address] [place], [place] [address]XIR67.6 sutTcpvoa15.0-34.0[facility] ColumbusComment on above:Performed By: #### 25055-6 #### [facility] ([facility]) LAB [address] [place], [place] [address]VQFI (RBC) [Mass/Vol]33.6 g/bWWrrgud61.8-35.3Mount ParktonKettering Health Dayton ColumbusComment on above:Performed By: #### 28118-9 #### [facility] ([facility]) LAB [address], [place] [address]QAF (RBC) [Entitic vol]91.2 zGBekvaw61.0-97.0[facility] LorinKettering Health Dayton ColumbusComment on above:Performed By: #### 12889-9 #### [facility] ([facility]) [facility] [address] [place], [place] [address]Wrtvwgkzo (Bld) [#/Vol]0.62 10*3/uLNormal0.00-0.90[facility] ColumbusComment on above:Performed By: #### 03033-6 #### [facility] ([facility]) [facility] [address] [place], [place] [address]Jvvlqspik/100 WBC (Bld)10.4 %Normal0.0-12.0[facility] [place] ColumbusComment on above:Performed By: #### 41085-3 #### [facility] ([facility]) [facility] [address] [place], [place] [address]Bhntnfxzeov Absolute4.06 K/mcLNormal1.80-7.70Mount [facility] HospitalComment on above:Performed By: #### 20765-6 #### [facility] ([facility]) [facility] [address] [place], [place] [address]Fkrigvopmuf/100 WBC (Bld)68.0 %Qmrtkq68.1-75.5[facility] Columlincoln county medical centerComment on above:Performed By: #### 17513-8 #### [facility] ([facility]) [facility] [address] [place] [address]Pxbcevrq mean volume (Bld) [Entitic vol]10.3 fLNormal6.2-12.1 [facility] HospitalComment on above:Performed By: #### 28555-8 #### [facility] ([facility]) [facility] [address] [place] [address]Ngkarerxx (Bld) [#/Vol]243 10*3/gNKtvhlk323-436Iuiru Logan County HospitalComment on above:Performed By: #### 42901-1 #### [facility] ([facility]) [facility] [address] [place] [address]IFC (Bld) [#/Vol]4.44 10*6/uLNormal3.74-5.34Mount [facility] County HospitalComment on above:Performed By: #### 27623-1 #### [facility] ([facility] [address] [place] [id number] (Bld) [#/Vol]6.0 10*3/uLNormal4.6-10.2[facility] HospitalComment on above:Performed By: #### [id number] #### [facility] ([facility]) [facility] [address] [place] [id number] C antibody screenon [id number] Ab IA Ql Non-ReactiveNonreactiveTrinity HealthLipid panel with direct LDLon 07-21-2022 Cholesterol [Mass/Vol]137 mg/dLNINF - 200 mg/dLTrinadams county regional medical center HealthCholesterol in HDL [Mass/Vol]53 mg/dL40 - PINF mg/dLTrinity HealthCholesterol in LDL [Mass/Vol]70 mg/dLNINF - 100 mg/dLTrinadams county regional medical center HealthCholesterol in VLDL [Mass/Vol]13.8 mg/dL2 - 38 mg/dLTrinadams county regional medical center HealthInterpretation and review of laboratory resultsNormal [place] HealthTriglyceride [Mass/Vol]69 mg/dLNINF - 200 mg/dLTrinadams county regional medical center HealthNo Panel Informationon [id number] HealthTSH Qnon 04-10-1671Bhyoifprmjfweg and review of laboratory resultsNormalTrinity HealthTrinity HealthThyroid stimulating hormoneon 00-19-2754GUL Qn0.90 m[IU]/LTrinity HealthVitamin D 25 hydroxyon [id number]-ygevvlxgpsavox D3 [Mass/Vol]23.0 ng/mLLow30.0 - 100.0 ng/mLTrinadams county regional medical center HealthComment on above:Deficient <20 ng/mL Insufficient 20 to 30 ng/mL Sufficient 30-100 ng/mL Toxic >100 ng/mL US Pelvic, Transvaginalon [id number] Pelvic, TransvaginalFINDINGS: Uterus 8.0 x 3.8 x 3.3 cm [...] and signed by Oseas Martines on 08/27/2021 0804NormalNorthern [place] Medical SpecialistQ - BV/VAGINITIS PANEL DNA PROBEon 18-05-1884TIWMVKUMPTL: TNPNormalNorthern Parkwest Medical Center SpecialistComment on above:Order Comment: [facility] performed at: QPT, [facility], [address], [address] [facility], [place], [address], Carding Supervisor: Haja Estrada MD [facility] Collection Date/Time: [id number] [facility] Results Received Date/Time: [id number] [facility] Reported Date/Time: [id number] Comment: TEST NOT PERFORMED Due to a laboratory error, we are unable to perform this test. Specimen exceeded stability due to incorrect storage.Performed By: #### [id number] #### [facility] Default [address] [place], [place] [address]HXQ IACS WO W CONon 25-53-3062HVP IACS WO W CONEXAMINATION: MRI IACS WO W CON HISTORY: Tinnitus [...] Electronically authenticated by: WYATT CURRAN Date: 2020-03-19 09:57[facility] CenterCHLAMYDIA/GONOCOCCUS CARLI (SWAB/URINE/PAPon 70-55-6748Yatzmcsda trachomatis, NAANegativeNormalNegativeAultman Alliance Community HospitalComment on above: Performed By: #### CT/NGNA #### [facility] [address] [place] [address] Yuri KarenNeisseria gonorrhoeae, NAANegativeNormalNegativeAultman Alliance Community HospitalComment on above:Performed By: #### CT/NGNA #### [facility] [address] [place] [address] Yuri LinderenVAGINITIS/VAGINOSIS DNA PROBEon 73-47-8591Acvivjt speciesNegative NormalNegativeAultman Alliance Community HospitalComment on above:Performed By: #### VAGINT #### [facility] [address] [place] [address] Yuri KarenGardnerella vaginalisNegativeNormalNegativeAultman Alliance Community Hospital Comment on above:Performed By: #### VAGINT #### [facility] [address] [address] Yuri Keithonas vaginalisNegativeMoundridgeNegMercy Health West Hospital Comment on above:Performed By: #### VAGINT #### [facility] [address] [address] Yuri Carias Vital Signs Date TimeVital SignValuePerforming GfpltnozfJekqnmtn25-69-2646 11:07-0400Body mass index (BMI) [Ratio]39.4 kg/m2Amy Rene CASTORENA Work Phone: 1(279)[address] [place], [place] 9892510-30-2025 11:07-0400Body cyeoom926.88 kgErnestine CASTORENA Work Phone: 1(774)[facility] [place], [place] [address]Uxnjfncnvt62-12-9197 11:07-0400Diastolic blood dyldezbo43 mm[Hg]Ernestine CASTORENA Work Phone: 1(588)[facility] [place], [place] [address]Naplzslbpi18-81-4105 11:07-0400Systolic blood yjvxffxp622 mm[Hg]Ernestine CASTORENA Work Phone: 1(120)[facility] [place], [place] [address]Dwnvlcpotq13-91-2800 10:15-0400Body mass index (BMI) [Ratio]39.04 kg/a5OaukxbqjQuincy Roberts [employer] Work Phone: 1(725)[facility] [place], [place] [address]Nyyfdvjtjp11-07-0594 10:15-0400Body mbpekq77.97 kgQuincy Roberts [employer] Work Phone: 1(943)[facility] [place], [place] [address]Auzikacqyc18-43-0445 10:15-0400Diastolic blood pvyqmvio47 mm[Hg]Quincy Roberts [employer] Work Phone: 1(855)[facility] [place], [place] [address]Kjmxmgdupl48-24-5165 10:15-0400Systolic blood mm[Hg]Quincy Roberts [employer] Work Phone: 1(458)[address] [place], [place] 9892510-16-2025 11:03-0400Body mass index (BMI) [Ratio]39.18 kg/m2Ernestine CASTORENA Work Phone: 1(927)[address] [place], [place] 9892510-16-2025 11:03-0400Body hjpfuv951.34 kgAmy Rene PA Work Phone: 1(902)364-[address] [place] [address]-16-2025 11:03-0400Diastolic blood yivbpwzo21 mm[Hg]Ernestine López PA Work Phone: 1(673)517-[address] [place], [place] [address]Tiqvkihwqb34-09-3192 11:03-0400Systolic blood zqgylgsv464 mm[Hg]Ernestine López PA Work Phone: 1(342)707-[address] [place], [place] [address]Tbxtmehzhu03-17-4689 15:08-0400Body mass index (BMI) [Ratio]38.79 kg/y0MblmiqnmQuincy Roberts [employer] Work Phone: 1(524)591-[address] [place], [place] [address]Rpmihlfpms97-16-4970 15:08-0400Body rhbevh64.34 kgKrelisa Roberts [employer] Work Phone: 1(989)758-[address] [place], [place] [address]Qfblkszikf22-42-0800 15:08-0400Diastolic blood ocbeuvrl55 mm[Hg]Quincy Roberts [employer] Work Phone: 1(590)[facility] [place], [place] [address]Ppytjdohgl19-86-0326 15:08-0400Systolic blood pbuxkfdu001 mm[Hg]Quincy Roberts [employer] Work Phone: 1(813)[facility] [place], [place] [address]Ofikqwwxxn38-07-8082 10:30-0400Body mass index (BMI) [Ratio]38.31 kg/m2Amy Rene PA Work Phone: [phone] [place], [place] [address]Qkdzuytcyb31-01-0954 10:30-0400Body ginzor12.09 kgAmy Rene PA Work Phone: 1(504)[facility] [place] [address]-17-2025 10:30-0400Diastolic blood aegjyuyy23 mm[Hg]Ernestine López PA Work Phone: 1(492)895-[address] [place] [address]-17-2025 10:30-0400Systolic blood wzjmylgt835 mm[Hg]Ernestine López PA Work Phone: 1(058)878-[address] [place], [place] [address]Hifuxnarcl95-66-2426 14:41-0400Body mass index (BMI) [Ratio]38.17 kg/s2HddsaJosiah Childs DO Work Phone: 1(999)157-[address] [place], [place] [address]Deggeigqoq53-19-5145 14:41-0400Body syaoht35.75 kgCorey Amadeo DO Work Phone: 1(671)810-[address] [place], [place] [address]Wsygxuwchi68-55-8141 14:41-0400Diastolic blood mmqpwrap46 mm[Hg]Josiah Amadeo DO Work Phone: 1(699)404-[facility] HospitalMkjuagaecj40-98-8122 14:41-0400Systolic blood uwggeqcb559 mm[Hg]Josiah Amadeo DO Work Phone: 1(183)403-[address] [place], [place] [address]Vclgdofejo82-14-3700 11:21-0400Body mass index (BMI) [Ratio]37.87 kg/a6Mqdgf Amadeo DO Work Phone: 1(493)532-[address] [place], [place] [address]Yrovwkllhn38-00-5484 11:21-0400Body xobozq06.98 kgCorey Amadeo DO Work Phone: 1(624)929-[address] [place], [place] [address]Gtofpmkmoy79-62-6470 11:21-0400Diastolic blood lsnvilyn43 mm[Hg]Josiah Amadeo DO Work Phone: 1(596)160-[address] [place], [place] [address]Glnpdmlsay14-30-9904 11:21-0400Systolic blood mm[Hg]Josiah Amadeo DO Work Phone: 1(219)809-[address] [place], [place] [address]Aqyteknmxk55-71-9019 11:33-0400Body mass index (BMI) [Ratio]37.73 kg/t7XcvjraohQuincy Roberts [employer] Work Phone: 1(842)913-[address] [place], [place] [address]Yheupbdwfr27-24-6446 11:33-0400Body xabfwz71.62 kgKrelisa Roberts [employer] Work Phone: 1(005)704-[address] [place], [place] [address]Adwndiimho70-25-4310 11:33-0400Diastolic blood mm[Hg]Quincy Roberts [employer] Work Phone: 1(514)331-[address] [place], [place] [address]Txkqzpqpsx21-08-6029 11:33-0400Systolic blood qyqaeitm654 mm[Hg]Quincy Roberts [employer] Work Phone: 1(750)824-[address] [place], [place] [address]Giltunhmfd81-44-5426 09:57-0400Body mass index (BMI) [Ratio]36.87 kg/m2Amy Gloucester PA Work Phone: 1(434)917-[address] [place], [place] [address]Yycxaryxvo04-41-4169 09:57-0400Body vakjsc21.4 kg Ernestine López PA Work Phone: [facility] HospitalLryeuhfiwc94-75-3208 09:57-0400Diastolic blood fnwybmqs24 mm[Hg]Ernestine López PA Work Phone: 1(100)676-[facility] HospitalPyrooajqaz63-52-1084 09:57-0400Systolic blood bctkviut484 mm[Hg]Ernestine López PA Work Phone: 1(315)960-[address] [place], [place] [address]Zjqrxelzfz54-86-2520 10:44-0400Body mass index (BMI) [Ratio]36.63 kg/m2Ernestine Hendricksoney PA Work Phone: 1(607)723-[address] [place], [place] [address]Dzdkoadvep96-78-5966 10:44-0400Body ocnhlx10.8 kg Ernestine López PA Work Phone: 1(358)308-[address] [place], [place] [address]Imqvqyxsem90-37-5276 10:44-0400Diastolic blood vjpsnoxm58 mm[Hg]Ernestine López PA Work Phone: 1(953)740-[address] [place], [place] [address]Mmdnwrghew67-51-3843 10:44-0400Systolic blood mm[Hg]Ernestine López PA Work Phone: 1(792)836-[address] [place], [place] [address]Qgarximwpd91-51-8692 11:28-0400Body mass index (BMI) [Ratio]36.51 kg/z6Naekb Amadeo DO Work Phone: 1(287)782-[address] [place], [place] [address]Wpqexrykdl16-58-5744 11:28-0400Body .5 kg Josiah Amadeo DO Work Phone: 1(151)444-[address] [place], [place] [address]Pkmlmmocpm00-30-3120 11:28-0400Diastolic blood gteognfc15 mm[Hg]Josiah Aamdeo DO Work Phone: 1(467)733-[address] [place], [place] [address]Xxkejaktlm99-51-5618 11:28-0400Systolic blood fxrggmxo859 mm[Hg]Josiah Amadeo DO Work Phone: 1(342)794-[address] [place], [place] [address]Npujjvoxjh03-92-1308 14:47-0400Body mass index (BMI) [Ratio]37.45 kg/m2[facility]04-17-2025 14:47-0400Body cdwabr27.89 kgNoms [facility]05-19-2024 13:30-0400Respiratory rate16 /minFrankie Artis MD Work Phone: 1(530)[phone]jOrpgrv79-08-9787 08:29-0400Body .1 [degF]Frankie Artis MD Work Phone: 1(996)[phone]20OyurRzcesf45-14-4549 08:29-0400Diastolic blood vizmlucc09 mm[Hg]Frankie Artis MD Work Phone: 1(393)[phone]691VdkhKbugko10-25-7466 08:29-0400Heart rate92 /minFrankie Artis MD Work Phone: 1(593)792-736-0527MluaWikque84-018866DqrkYmfhet97-75-9777 08:29-9805VvU7% (BldA) [Mass fraction]99 %Frankie Artis MD Work Phone: 1(688)[phone]dZytgod37-28-3260 08:29-0400Systolic blood pressure 128 mm[Hg]Frankie Artis MD Work Phone: 1(969)[phone]ptjVzdoyz35-98-7167 21:00-0400Body bqxoab057 cmFrankie Artis MD Work Phone: 1(262)[phone]fZwyxsy58-55-1886 21:00-0400Body mass index (BMI) [Ratio]40.57 kg/m2Frankie Artis MD Work Phone: [phone]klccb16-32-9520 21:00-0400Body .87 kg Frankie Artis MD Work Phone: 1(378)[phone]kzdFvflev70-66-7700 11:34-0400Body grolak262.6 cm Ej Burk [employer] Work Phone: [facility] ReadingKfhhcl47-07-5062 11:34-0400Body mass index (BMI) [Ratio]30.42 kg/f1DstswkmEj Burk [employer] Work Phone: [facility] ReadingStthhc81-31-4041 11:34-0400Body temperature 98.2 [degF]Ej Neuhart [employer] Work Phone: [address] [address]-12-2023 11:34-0400Body ajweot50.47 kg Ej العراقيt [employer] Work Phone: [address] [address]-12-2023 11:34-0400Diastolic blood mm[Hg]Ej Malcomt [employer] Work Phone: [facility] ReadingNmmket25-69-4365 11:34-0400Heart rate70 /min Ej Briehart [employer] Work Phone: [address] [address]-12-2023 11:34-0400Respiratory rate14 /minElvisa Briehart [employer] Work Phone: [address] [address]-12-2023 11:34-0400Systolic blood xixswfpk336 mm[Hg]Ej Malcomt [employer] Work Phone: [address] [address]-19-2022 11:40-0500Diastolic blood nihvukfo15 mm[Hg]Ej Malcomt [employer] Work Phone: [address] [address]-19-2022 11:40-0500Heart rate74 /min Ej Briehart [employer] Work Phone: [address] [address]-19-2022 11:40-0500Systolic blood ofczdjtg581 mm[Hg]Ej Malcomt [employer] Work Phone: [address] [address]-19-2022 11:29-0500Body tuyqbt939.6 cm Ej العراقيt [employer] Work Phone: [address] [address]-19-2022 11:29-0500Body mass index (BMI) [Ratio]31.3 kg/p6WsvabcsEj Bairdhart [employer] Work Phone: [address] [address]-19-2022 11:29-0500Body temperature 98.71 [degF]Ej Briehart [employer] Work Phone: [address] [address]-19-2022 11:29-0500Body vlepgi82.74 kg Ej Burk [employer] Work Phone: [address] [address]-19-2022 11:29-0500Respiratory rate14 /minEj العراقيt [employer] Work Phone: [address] [address]-14-2022 10:44-0500Body lkywbq527.6 cm Ej Burk [employer] Work Phone: [address] [address]-14-2022 10:44-0500Body mass index (BMI) [Ratio]31.16 kg/n9MgetqgcEj العراقيt [employer] Work Phone: [address] [address]-14-2022 10:44-0500Body temperature 98.01 [degF]Ej العراقيt [employer] Work Phone: [address] [address]-14-2022 10:44-0500Body adrhhu58.38 kg Ej العراقيt [employer] Work Phone: [address] [address]-14-2022 10:44-0500Diastolic blood tkznigqt39 mm[Hg]Ej العراقيt [employer] Work Phone: [address] [address]-14-2022 10:44-0500Heart rate70 /min Ej العراقيt [employer] Work Phone: [address] [place] [address]-14-2022 10:44-0500Respiratory rate16 /minEj العراقيt [employer] Work Phone: [address] [address]-14-2022 10:44-0500Systolic blood snofvpnk553 mm[Hg]Ej العراقيt [employer] Work Phone: [facility] Encounters Encounter DateEncounter TypeCare ProviderFacilityStart: 07-06-2025 End: 61-10-4508Dhczoa flowsheetErnestine CASTORENA Work Phone: [facility]BGYNStart: 07-06-2025 End: 09-02-7326Zzevpb Abelino CASTORENA Work Phone: [facility] OBGYNStart: 07-06-2025 End: 30-29-3537lmfmuwbodsKZN RAMEYNot AvailableStart: 07-06-2025 End: 17-87-1486Fbnhtl outpatient visit 15 minutesErnestine CASTORENA Work Phone: [facility] OBGYNComment on above:Third trimester ([facility]); 38 weeks gestation of ([facility])Start: 06-28-2025 End: 54-40-2367Gbzqgk Herminia Roberts NP Work Phone: [facility]BGYNStart: 06-28-2025 End: 39-64-1297Cqwtwy curtheetQuincy Roberts [employer] Work Phone: [facility]BGYNStart: 06-28-2025 End: 45-20-1116pbufsutpxbHTYXBCRS EBERLYNot AvailableStart: 06-28-2025 End: 30-16-7991Tmqsiq outpatient visit 15 minutesQuincy Roberts NP Work Phone: [facility]athish OBGYNComment on above:36 weeks gestation of ([facility]); Third trimester ([facility]); Heartburn during in third trimester ([facility]); H/O pre-eclampsia in prior , currently ([facility])Start: 06-22-2025 End: 44-54-7453Pcwtfl Abelino CASTORENA Work Phone: [facility]BGYNStart: 06-22-2025 End: 91-09-8117Fttcwg Abelino CASTORENA Work Phone: [facility]BGYNStart: 06-22-2025 End: 69-26-3448Kluyoj outpatient visit 15 minutesErnestine CASTORENA Work Phone: [facility] OBGYNComment on above:Third trimester ([facility]); 36 weeks gestation of ([facility])Start: 06-22-2025 End: 40-33-7854nadltimgauLVI RAMEYNot AvailableStart: 06-08-2025 End: 83-01-7497fjgeovchmaNHYWEQKF EBERLYNot AvailableStart: 06-08-2025 End: 96-05-3459Hhyfyw outpatient visit 15 minutesQuincy Roberts NP Work Phone: [facility]ish OBGYNComment on above:34 weeks gestation of ([facility]); Third trimester ([facility]); Heartburn during in third trimester ([facility]); H/O pre-eclampsia in prior , currently ([facility])Start: 06-08-2025 End: 70-68-1674Csqwcw Herminia Roberts NP Work Phone: [facility]BGYNStart: 06-08-2025 End: 95-10-4516Erinfq Herminia Roberts NP Work Phone: [facility]BGYNStart: 05-24-2025 End: 71-94-3910Eprmoc Abelino CASTORENA Work Phone: [facility] OBGYNStart: 05-24-2025 End: 54-95-6240Ehqney Abelino CASTORENA Work Phone: [facility]BGYNStart: 05-24-2025 End: 18-69-6735mlkwjhucodYEI RAMEYNot AvailableStart: 05-24-2025 End: 98-05-3394Yrmdqk outpatient visit 15 minutesErnestine CASTORENA Work Phone: [facility] OBGYNComment on above:Third trimester ([facility]); 31 weeks gestation of ([facility]); Heartburn during in third trimester ([facility])Start: 05-10-2025 End: 51-07-3219Oahsqz outpatient visit 15 minutesJosiah Childs DO Work Phone: [facility] OBGYNComment on above:Third trimester ([facility]); 29 weeks gestation of ([facility]); Heartburn during in third trimester ([facility])Start: 05-10-2025 End: 84-21-0864iihxjdhurcJXDTZ FAZIONot AvailableStart: 04-28-2025 End: 43-74-6108Lmabxvvsa Result EncounterCorey Amadeo DO Work Phone: [facility] External Department UnsolicitedStart: 04-28-2025 End: 91-32-6903Uzqqvqxfl Result EncounterCorey Amadeo DO Work Phone: [facility] External Department UnsolicitedStart: 04-26-2025 End: 86-03-7719Ilpbkv flowsheetCorey Amadeo DO Work Phone: [facility]BGYNStart: 04-26-2025 End: 39-01-9532Skeiih flowsheetCorey Amadoe DO Work Phone: [facility] OBGYNStart: 04-26-2025 End: 57-00-9870plonxvxgafBKDBP FAZIONot AvailableStart: 04-26-2025 End: 14-70-3558Sglqie outpatient visit 15 minutesCorey Amadeo DO Work Phone: [facility] Sathish OBGYNComment on above:27 weeks gestation of ([facility]); Second trimester ([facility]); History of induced hypertension; H/O pre-eclampsia in prior , currently ([facility]); Elevated glucose tolerance test; Vaginal discharge; size inconsistent with dates ([facility]); Yeast infectionStart: 04-21-2025 End: 99-36-5876Sozogcowh Result EncounterQuincy Roberts NP Work Phone: [facility] External Department UnsolicitedStart: 04-21-2025 End: 59-22-4650Oawyipbvl Result EncounterQuincy Roberts NP Work Phone: [facility] External Department UnsolicitedStart: 04-10-2025 End: 37-86-6137Wunbvd outpatient visit 15 minutesQuincy Roberts NP Work Phone: [facility] Sathish OBGYNComment on above:Second trimester ([facility]); 25 weeks gestation of ([facility]); History of induced hypertension; H/O pre-eclampsia in prior , currently ([facility]); Diabetes mellitus screeningStart: 04-10-2025 End: 66-31-7426vbvxxzfdlqVPZHQJIH EBERLYNot AvailableStart: 03-02-2025 End: 76-25-2882Uqrxqcqkw Result EncounterErnestine CASTORENA Work Phone: NOQI External Department UnsolicitedStart: 03-02-2025 End: 71-71-5878Xhgemqqug Result EncounterErnestine CASTORENA Work Phone: [facility] External Department UnsolicitedStart: 03-02-2025 End: 47-93-2467Jelwchpx flow sheetErnestine CASTORENA Work Phone: NOLV BCP OBComment on above:Second trimester ([facility]); 20 weeks gestation of ([facility])Start: 03-02-2025 End: 82-01-4583hhpjvrfvzxQAK RAMEYNot AvailableStart: 02-02-2025 End: 22-14-0859Vxxgsq flowsheetErnestine CASTORENA Work Phone: NOSL BCP OBStart: 02-02-2025 End: 41-28-9613Yuwdjv flowsheetErnestine CASTORENA Work Phone: NONT BCP OBStart: 02-02-2025 End: 19-38-3330Sjdftses flow sheetErnestine CASTORENA Work Phone: NOMS BCP OBComment on above:16 weeks gestation of ; Second trimester ; Screening, , for anatomic surveyStart: 02-02-2025 End: 66-57-4845vlsehrmbhgHGD RAMEYNot AvailableStart: 01-05-2025 End: 80-19-9184Fxugyjxwq Result EncounterJosiah Childs DO Work Phone: noms External Department UnsolicitedStart: 01-05-2025 End: 68-76-5712Szghdbfp Result EncounterCorey Amadeo DO Work Phone: noms External Department UnsolicitedStart: 01-05-2025 End: 11-22-9547Ytkokasq Result EncounterCorey Amadeo DO Work Phone: noms External Department UnsolicitedStart: 01-05-2025 End: 58-42-6496Atisfnt encounter procedureCorey Amadeo DO Work Phone: [facility]oms HealthcareStart: 01-05-2025 End: 29-07-9853Lrfqlqod preventive med est patient 18-39 yrsCorey Amadeo DO Work Phone: noms BCP OBComment on above:First trimester ; 12 weeks gestation of ; Nausea and vomiting, unspecified vomiting type; Well woman exam with routine gynecological exam; Vaginal discharge; STD exposureStart: 01-05-2025 End: 66-89-1145bqalyjpsrbNTGTK FAZIONot AvailableStart: 12-28-2024 End: 53-65-6275Xqkbcqfbu Result EncounterCorey Amadeo DO Work Phone: [facility]oms External Department UnsolicitedStart: 12-28-2024 End: 68-63-6500Yfpmsgmig Result EncounterCorey Amdaeo DO Work Phone: noms External Department UnsolicitedStart: 12-22-2024 End: 49-77-9901Ranmefofy Result EncounterCorey Amadeo DO Work Phone: noms External Department UnsolicitedStart: 12-22-2024 End: 50-76-3025Kchfwkxwt Result EncounterCorey Amadeo DO Work Phone: noms External Department UnsolicitedStart: 12-22-2024 End: 23-63-2234Gykbut outpatient visit 5 minutesNoms Bcp Ob Amadeo NurseNOMS BCP OBComment on above:GA: 02f5zYtavk: 12-22-2024 End: 19-72-0516wadsoutyevPBGBHYBA RUTHYLYNot AvailableStart: 01-20-2024 End: 54-37-0796Njohrzhtta and management of inpatientStacey Kasey Hebert MD Work Phone: [facility] Start: 08-27-2023 End: 92-38-0016rpxhmtfzbxNNEPUVIUNC Health Chatham Urgent CareStart: 01-16-2023 End: 56-62-7534tpppsmwxkjVEIJTXR [facility] HealthcareStart: 01-16-2023 End: 94-56-3408Bkrilto encounter procedureEj Burk [employer] Work Phone: [facility]onsStart: 01-16-2023 End: 75-01-3411Rtnqddt encounter statusEj Burk [employer] Work Phone: [facility] ParsonsStart: 01-16-2023 End: 17-69-5183Rnrcaccr preventive med est patient 18-39 yrsEj Burk [employer] Work Phone: [facility] ParsonsComment on above: Adult general medical examination (Primary Dx); Bipolar 1 disorder (CMS/HCC); Seasonal allergiesStart: 54-17-6924GupjlkFygarsj Neuhart [employer] Work Phone: [facility] ParsonsComment on above: Allergic rhinitis, unspecified seasonality, unspecified triggerStart: 11-20-2022 RefEladio Burk [employer] Work Phone: [facility]onsStart: 08-25-2022 End: 25-53-9646zgyomdsatvCAYLPOB [facility] HealthcareStart: 08-25-2022 End: 29-22-9916Sqwrdb outpatient visit 15 minutesEj Burk [employer] Work Phone: [facility] ParsonsComment on above: Encounter for gynecological examination without abnormal finding (Primary Dx); Screening for STD (sexually transmitted disease); Screening for cervical cancerStart: 08-25-2022 End: 54-57-7617Stbummr encounter procedureEj Burk [employer] Work Phone: [facility] ParsonsStart: 08-25-2022 End: 34-03-0577Okkkqap encounter statusAgustinkameron Rhiannon [employer] Work Phone: [facility]onsStart: 07-21-2022 End: 21-10-6256fiiukxyeqnHXCVHLY [facility] Hospitalart: 58-10-8933Arunoybxx for general adult medical examination without abnormal findingsEJ BRIEPremier Health Atrium Medical Centerart: 07-21-2022 End: 55-45-7326Kpieys outpatient new 45 minutesEj Burk [employer] Work Phone: [facility] ParsonsComment on above: Allergic rhinitis, unspecified seasonality, unspecified trigger (Primary Dx); Pain in both upper extremities; Adult general medical examination; Need for influenza vaccinationStart: 07-21-2022 End: 61-14-8584Sebiqmw encounter procedureEj Burk [employer] Work Phone: [facility] ParsonsStart: 07-21-2022 End: 00-18-5788Xfjrsbj encounter statusAgustinkameron Rhiannon [employer] Work Phone: [facility] ParsonsStart: 03-19-2020 End: 36-42-7637Uzflffc encounter procedureHILARY TIMMISFacility:A6Qtjof: 04-28-2019 End: 81-30-9252Bhehoqk encounter procedureANDREA MOOREFacility:H1 Procedures DateProcedureProcedure DetailPerforming ClinicianStart: 87-79-4251Mvhqh dip stick/tablet rgnt non-auto w/o micrscKellmy Rene PA Work Phone: Start: 75-98-3217Tjbbm dip stick/tablet rgnt non-auto w/o micrscTy Roberts [employer] Work Phone: Start: 45-88-7587Hnqia dip stick/tablet rgnt non-auto w/o micrscpAmy Rene CASTORENA Work Phone: Start: 62-36-9415Ehyox dip stick/tablet rgnt non-auto w/o micrscpKrelisa Roberts [employer] Work Phone: Start: 25-56-8118Hvadt dip stick/tablet rgnt non-auto w/o micrscpAmy Rene CASTORENA Work Phone: Start: 43-64-6370Qplxg dip stick/tablet rgnt non-auto w/o micrscpCorey Amadeo DO Work Phone: Start: 57-30-1600LWCDOVO TOLERANCE 3 HOURCorey Amadeo DO Work Phone: Start: 08-82-0010Uivea dip stick/tablet rgnt non-auto w/o micrscpCorey Amadeo DO Work Phone: Start: 35-71-2171ZUZCIDR 1 HOURKrelisa Roberts NP Work Phone: Start: 33-64-7172Rebdj dip stick/tablet rgnt non-auto w/o micrscpKrmatthieua Alejandra [employer] Work Phone: Start: 33-95-0303FGO, SERUM, OPEN SPINA BIFIDAAmy Rene CASTORENA Work Phone: Start: 93-40-1502Nlhtz dip stick/tablet rgnt non-auto w/o micrscpAmy Rene CASTORENA Work Phone: Start: 36-27-6952Zxoxt dip stick/tablet rgnt non-auto w/o micrscpAmy Rene CASTORENA Work Phone: Start: 97-16-4286UBUSGJRHX VAGINITIS (HTRX)Josiah Amadeo DO Work Phone: Start: 68-17-0729Yaomu dip stick/tablet rgnt non-auto w/o micrscpCorey Amadeo DO Work Phone: Start: 98-44-5138BVF,APTIMA HPV,AGE GDLNCorey Amadeo DO Work Phone: Start: 21-27-2524Bmhmrtnz screenCorey Amadeo DO Work Phone: Start: 00-05-7728ZOD TYPE AND SCREENCorey Amadeo DO Work Phone: Start: 07-97-7623VLV HEMOGLOBIN S1HZsqnr Amadeo DO Work Phone: Start: 12-22-2024 End: 52-88-0982Vzvjp dip stick/tablet rgnt non-auto w/o micrscpCorey Amadeo DO Work Phone: Start: 20-26-8511Amuqz count hematocritJohn Donavan Artis MD Work Phone: Start: 15-26-8160Vhalw count complete automatedBrianna Carmina Perea MD Work Phone: Start: 22-41-0064Abpky count complete auto&auto difrntl wbcToolivia Foley MD Work Phone: Start: 86-09-5203Ndnkp group typingStacey Kasey Hebert MD Work Phone: Start: 47-17-2940Zzqbd typing serologic aboToolivia Floey MD Work Phone: Start: 12-09-9555Vbjcqwvziyoqw metabolic panelToolivia Foley MD Work Phone: Start: 18-40-9100ASW URINALYSIS DIPSTICK,AUTO - RALS Elisa Kasey Hebert MD Work Phone: Start: 11-89-9454OBX W Auto Differential panel - Blood Ej Burk [employer] Work Phone: Start: 52-92-8918Jznswywavwmuz metabolic panelEj Burk [employer] Work Phone: Start: 66-82-1009Ohjda panelEj Burk [employer] Work Phone: Start: 40-86-0592Wxfew chlamydia trachomatis amplified probe tqEj Burk [employer] Work Phone: Start: 09-68-6412FXOIUJVHO PATHOGENS BY PCREj Burk [employer] Work Phone: Start: 00-00-4648YZI W Auto Differential panel - Blood Ej Burk [employer] Work Phone: Start: 87-12-7847Rffdrtaeaowyl metabolic panelEj العراقيt [employer] Work Phone: Start: 14-98-9048Skawvzxom c antibodyVankameron العراقيt [employer] Work Phone: Start: 40-91-6073Mke combination assayVankameron Burk [employer] Work Phone: Start: 81-73-4764Xlasc depression screening assessment Ej Burk [employer] Work Phone: Plan of Treatment DateCare ActivityDetailAuthorStart: 51-63-3699Dppuq panelCholesterol Screening (Lipid Panel)[facility] ReadingStart: 19-20-9540Snosa panelCholesterol Screening (Lipid Panel)[facility] ReadingStart: 35-26-5310Umdpqkkvx for malignant neoplasm of cervixCervical Cancer Screening: Pap SmearEncompass Health Rehabilitation Hospital Of ReadingStart: 07-06-2025 End: 24-49-9762Vhlwhha encounter ipvalmfhj18/30/2025 10:50 AM EDT Routine [facility] HERMOSILLO [address] [place] [address] Ernestine López PA [address] [place] [address] [facility]athish OBGYNStart: 06-28-2025 End: 95-48-9344Doewwgn encounter zzaouixpn62/22/2025 9:50 AM EDT Routine [facility]vin OBGYN [address] [place], [id number] Quincy Roberts, JAZMIN [address] [place] [address] [facility] OBGYNStart: 06-22-2025 End: 13-99-0499GTWXBJJ, GROUP B STREP WITH SUSCEPTIBLITYCULTURE, GROUP B STREP WITH SUSCEPTIBLITY Lab Routine Third trimester ([facility]) Expected: 06/22/2025, Expires: 06/22/2026[facility] Work Phone: comment on above:Expected: 06/22/2025, Expires: 06/22/2026Start: 06-22-2025 End: 34-69-8892Mmumurl encounter procedureNOMS Sathish OBGYNComment on above: ArrivedStart: 06-08-2025 End: 22-76-7631Tyltpdh encounter /02/2025 2:50 PM EDT Routine [facility] [address] [place], [id number] Quincy Roberts, [employer] [address] [facility] [place] [address] [facility]vin OBGYNStart: 05-24-2025 End: 73-52-5447Djuosst encounter zstcyheay55/17/2025 10:20 AM EDT Routine [facility] [address] [place] [address] Ernestine López PA [address] [place] [address] [facility] Sathish OBGYNStart: 05-10-2025 End: 30-77-5988Dqqtfbm encounter xcymrvrrq91/03/2025 2:40 PM EDT Routine [facility] [address] [place] [address] [address] [place], [id number] Josiah Childs, DO [address] [place] [address] [facility] Sathish OBGYNStart: 05-10-2025 End: 56-18-3179Mwkwvxvrcjyl / ancillary services cyutnqlthw64/03/2025 2:00 PM EDT Ancillary Procedure [facility] [address] [place] [address] [facility] Sathish OBGYNStart: 50-27-6820LHRUF-19 Vaccine ( season)COVID-19 Vaccine ()[facility] HealthcareStart: 26-80-7526Dzumprhkq vaccinationNOWY HealthcareStart: 04-26-2025 End: 48-33-4500Lvrlghoorki of glucose 3 hours after glucose challenge for glucose tolerance testGlucose tolerance, 3 hours Lab Routine Elevated glucose tolerance test Expected: 04/26/2025 (Approximate), Expires: 04/26/2026[facility] Work Phone: comment on above:Expected: 04/26/2025 (Approximate), Expires: 04/26/2026Start: 04-26-2025 End: 79-56-9373XV for pregnancyUS OB follow up transabdominal approach Imaging Routine size inconsistent with dates ([facility]) Expected: 04/26/2025, Expires: 08/26/2025[facility] HealthcareComment on above:Expected: 04/26/2025, Expires: 08/26/2025Start: 04-26-2025 End: 81-72-2165Pltwkfw encounter fidcimkvt10/20/2025 11:10 AM EDT Routine NOMBrittnee FINKGYN [address] [place] [address] [place] [address] Josiah Childs, DO [address] [place] [address] [facility] [place] OBGYNStart: 04-10-2025 End: 92-91-1593FAS panel - Blood by Automated countCBC Lab Routine Diabetes mellitus screening Expected: 04/10/2025 (Approximate), Expires: 04/10/2026[facility] Work Phone: comment on above:Expected: 04/10/2025 (Approximate), Expires: 04/10/2026Start: 04-10-2025 End: 83-15-1916Gisakvdbuhn of glucose 1 hour after glucose challenge for glucose tolerance testGlucose tolerance, 1 hour Lab Routine Diabetes mellitus screening Expected: 04/10/2025 (Approximate), Expires: 04/10/2026[facility] HealthcareComment on above:Expected: 04/10/2025 (Approximate), Expires: 04/10/2026Start: 03-30-2025 End: 65-87-2225Gmrslnm encounter zjoukuotu12/24/2025 9:40 AM EDT Routine [facility] [address] [place] [address] Josiah Childs DO [address] [facility] [place] [address] [facility] BCP OBStart: 03-02-2025 End: 12-51-4512Qtqkqpx encounter pfsegpocy93/26/2025 10:20 AM EDT Routine [facility] [address] [place] [address] Ernestine López PA [address] [place] [address] N[facility] BCP OBStart: 03-02-2025 End: 59-18-1501Fozsptdtajfe / ancillary services zakfhjpprg87/26/2025 9:00 AM EDT Ancillary Procedure [facility] BCP OB [address] [place] [address] [facility] BCP OBStart: 02-02-2025 End: 06-38-1654Jfziz fetoprotein, maternalAlpha fetoprotein, maternal Lab Routine 16 weeks gestation of Second trimester Expected: 02/02/2025 (Approximate), Expires: 03/05/2025[facility] HealthcareComment on above: Expected: 02/02/2025 (Approximate), Expires: 03/05/2025Start: 02-02-2025 End: 38-83-1021ND for pregnancyUS OB 14+ weeks anatomy scan Imaging Routine Screening, , for anatomic survey Expected: 02/02/2025, Expires: 05/05/2025[facility] Work Phone: comment on above:Expected: 02/02/2025, Expires: 05/05/2025Start: 02-02-2025 End: 04-57-1334Ukareez encounter procedureNOMS BCP OBComment on above:Arrived Start: 01-05-2025 End: 54-24-3958Dszxdoa encounter ugcgacrar85/01/2025 11:20 AM EDT Routine [facility] BCP OB [address] [place] [address] Josiah Childs, DO [address] [facility] [place] [address] N[facility] BCP OBStart: 12-22-2024 End: 74-82-7996KJT/RhABO/Rh Lab Routine Missed menses , unspecified gestational age Expected: 12/22/2024 (Approximate), Expires: 12/22/2025[facility] HealthcareComment on above:Expected: 12/22/2024 (Approximate), Expires: 12/22/2025Start: 12-22-2024 End: 03-99-4230Ffjta type and Indirect antibody screen panel - BloodType and screen Lab Routine Missed menses , unspecified gestational age Expected: 12/22/2024 (Approximate), Expires: 12/22/2025[facility] Work Phone: comment on above:Expected: 12/22/2024 (Approximate), Expires: 12/22/2025Start: 12-22-2024 End: 33-02-4646Vtyry of abuse panel - Urine by Screen methodRapid drug screen, urine Lab Routine , unspecified gestational age Encounter for supervision of normal first in first trimester Expected: 12/22/2024 (Approximate), Expires: 12/22/2025[facility] HealthcareComment on above:Expected: 12/22/2024 (Approximate), Expires: 12/22/2025Start: 32-05-5068GXC Vaccines (1 - 3-dose SCDM series)HPV Vaccines (1 - 3-dose SCDM series)[facility] HealthcareStart: 98-77-1955Nwshzgshpz depression screening assessmentDepression ScreeningTrinAllegheny Valley HospitalStart: 52-79-3514Lgwtzs Influencers of Health ScreeningSocial Influencers of Health ScreeningEncompass Health Rehabilitation Hospital Of ReadingStart: 07-10-2023 End: 87-18-9411Kooiscx encounter haunuords13/03/2023 Office Visit Family Medicine Ej Burk, [employer] [address] [place] [address] [facility]-19[facility]2023 End: 95-56-9257Pmsxwwh encounter hysyqawgz29/15/2023 Office Visit Family jE Brown, JAZMIN [address] [place] [address] [facility]onsStart: 08-25-2022 End: 57-90-6553Byvejir encounter /19/2022 Office Visit Family Ej Brown, JAZMIN [address] [place] [address] [facility]onsStart: 10-38-4779Osyhbjftb for Chlamydia trachomatisGonorrhea/Chlamydia Screening [facility] ReadingStart: 29-51-8564NNUNP-19 Vaccine (4 - Booster for Pfizer series) COVID-19 Vaccine (4 - Booster for Pfizer series)[facility] ReadingStart: 08-29-2018 DTaP,Tdap,and Td Vaccines (7 - Td or Tdap)DTaP,Tdap,and Td Vaccines (7 - Td or Tdap)[facility] ReadingStart: 70-22-2790Lfjtsxffk for malignant neoplasm of cervix Cervical Cancer Screening: Pap SmearEncompass Health Rehabilitation Hospital Of ReadingStart: 50-01-2955Lkzazpwkk B Vaccines (1 of 3 - 19+ 3-dose series)Hepatitis B Vaccines (1 of 3 - 19+ 3-dose series)[facility] HealthcareStart: 26-49-1499Lelqjcs of varicella vaccinationVaricella Vaccines (1 of 2 - 13+ 2-dose series)[facility] 2004 DTaP/Tdap/Td Vaccines (1 - Tdap)DTaP/Tdap/Td Vaccines (1 - Tdap)[facility] Start: 10-85-2442YLK Vaccines (1 of 1 - Standard series)MMR Vaccines (1 of 1 - Standard series)[facility] HospitalBacteria identified in Urine by CultureUrine culture Microbiology Routine Missed menses Ordered: 12/22/2024[facility] Comment on above:Ordered: 12/22/2024BC W Auto Differential panel - BloodCBC and differential Lab Routine Missed menses , unspecified gestational age Ordered: 12/22/2024[facility] HealthcareComment on above:Ordered: 12/22/2024HLAMYDIA TRACHOMATIS (GENITO/STI)CHLAMYDIA TRACHOMATIS (GENITO/STI) Lab Routine STD exposure Ordered: 01/05/2025[facility] HealthcareComment on above:Ordered: 01/05/2025 CHLAMYDIA TRACHOMATIS (GENITO/STI)CHLAMYDIA TRACHOMATIS (GENITO/STI) Lab Routine Vaginal discharge Ordered: 04/26/2025[facility] HealthcareComment on above:Ordered: ytology Cervical or vaginal smear or scraping studyPap Smear Pathology and Cytology Routine Well woman exam with routine gynecological exam Ordered: 01/05/2025[facility] Work Phone: comment on above:Ordered: 01/05/2025ytology report of Cervical or vaginal smear or scraping Cyto stain.thin prepPap smear Pathology and Cytology Routine Encounter for gynecological examination without abnormal fi nding Screening for cervical cancer 08/25/2022 11:59 AM [facility] Hemoglobin A1c/Hemoglobin.total in BloodHemoglobin A1c Lab Routine Missed menses , unspecified gestational age Ordered: 12/22/2024[facility] Comment on above:Ordered: 12/22/2024Hepatitis B virus surface Ag [Presence] in Serum or Plasma by ImmunoassayHepatitis B surface antigen Lab Routine Missed menses , unspecified gestational age Ordered: 12/22/2024[facility] Comment on above:Ordered: 12/22/2024Hepatitis C virus Ab [Presence] in Serum or Plasma by ImmunoassayHepatitis C antibody Lab Routine Missed menses , unspecified gestational age Ordered: 12/22/2024[facility] HealthcareComment on above: Ordered: 12/22/2024HIV-1/HIV-2 antigen/antibody combination immunoassayHIV-1 and HIV-2 antibodies Lab Routine Missed menses , unspecified gestational age Ordered: 12/22/2024[facility] HealthcareComment on above:Ordered: 12/22/2024 End: 04-95-6738Uuxzw papilloma virus DNA [Presence] in Unspecified specimen by Probe with signal amplificationHPV with reflex genotype Lab Routine Encounter for gynecological examination without abnormal finding Screening for STD (sexually transmitted disease) Screening for cervical cancer 1 Occurrences start ing 08/26/2022 until 08/26/2023[facility] [employer] Work Phone: comment on above:1 Occurrences starting 08/26/2022 until 08/26/2023Human papilloma virus DNA [Presence] in Unspecified specimen by Probe with signal amplificationHPV with reflex genotype Lab Routine Encounter for gynecological examination without abnormal finding Screening for STD (sexually transmitted disease) Screening for cervical cancer 08/25/2022 11:58 AM [facility] BiometricsNeisseria gonorrhoeae DNA [Presence] in Unspecified specimen by CARLI with probe detectionNeisseria gonorrhea DNA probe, direct Lab Routine STD exposure Ordered: 01/05/2025[facility] HealthcareComment on above:Ordered: 01/05/2025 Neisseria gonorrhoeae DNA [Presence] in Unspecified specimen by CARLI with probe detectionNeisseria gonorrhea DNA probe, direct Lab Routine Vaginal discharge Ordered: 04/26/2025[facility] HealthcareComment on above:Ordered: 04/26/2025Reagin Ab [Presence] in Serum by RPRRPR Lab Routine Missed menses , unspecified gestational age Ordered: 12/22/2024[facility] HealthcareComment on above:Ordered: 12/22/2024Rubella antibody, IgGRubella antibody, IgG Lab Routine Missed menses , unspecified gestational age Ordered: 12/22/2024[facility] HospitalComment on above:Ordered: 12/22/2024SURESWAB(R) ADVANCED VAGINITIS PLUS, TMASURESWAB(R) ADVANCED VAGINITIS PLUS, TMA Pathology and Cytology Routine Vaginal discharge Ordered: 01/05/2025[facility] HospitalComment on above:Ordered: 01/05/2025 SURESWAB(R) ADVANCED VAGINITIS PLUS, TMASURESWAB(R) ADVANCED VAGINITIS PLUS, TMA Pathology and Cytology Routine Vaginal discharge Ordered: 04/26/2025[facility] HospitalComment on above:Ordered: 04/26/2025 Immunizations Immunization DateImmunizationNotesCare SlygybstKipgppyy90-57-0359ocicuiuifx, tetanus toxoids and acellular pertussis vaccine, unspecified formulationFrankie Artis MD Work Phone: [phone]mwwwk40-33-0600gpndqbe, mumps and rubella virus vaccineFrankie Artis MD Work Phone: [phone]yroCbvdhu48-36-9748riucfmfse zoster immune globulin Frankie Artis MD Work Phone: [phone]mcYzrwxj91-16-5568ksumxgpxc, injectable, quadrivalent, preservative freeVanessa Neuhart [employer] Work Phone: [facility] ReadingAcmwjq37-60-4940wfenjxgmj virus vaccine, unspecified formulationWestern Missouri Mental Health CenterQajvumennr97-63-1867nnjpkscso, injectable, quadrivalent, preservative freeVanessa Neuhart [employer] Work Phone: [facility] ReadingOizstb28-53-7182ujuyvyqle, injectable, quadrivalent, preservative freeVanessa Neuhart [employer] Work Phone: [facility] ReadingPdvzdm12-23-1539xbjjiagdlooeb polysaccharide (groups A, C, Y and W-135) diphtheria toxoid conjugate vaccine (MCV4P)Ej Burk [employer] Work Phone: [place] [phone] papilloma virus vaccine, quadrivalentVanessa Neuhart [employer] Work Phone: [facility] ReadingQnoisr16-28-8046rzpybeimz A vaccine, pediatric/adolescent dosage, 2 dose scheduleVanessa Neuhart [employer] Work Phone: [facility] ReadingIbpnhg80-35-5730ticbr papilloma virus vaccine, quadrivalentVanessa Neuhart [employer] Work Phone: [facility] ReadingAsatlp09-84-3555sgkijggou virus vaccine, live, attenuated, for intranasal useVanessa Neuhart [employer] Work Phone: [place] [phone] papilloma virus vaccine, quadrivalentVanessa Neuhart [employer] Work Phone: [place] [phone]z, seasonal, injectableVanessa Neuhart [employer] Work Phone: [place] [phone]srqfv polysaccharide (groups A, C, Y and W-135) diphtheria toxoid conjugate vaccine (MCV4P)Ej Neuhart [employer] Work Phone: [place] [phone] toxoid, reduced diphtheria toxoid, and acellular pertussis vaccine, adsorbedVanessa Neuhart [employer] Work Phone: [place] [phone]w A vaccine, pediatric/adolescent dosage, 2 dose scheduleVanessa Neuhart [employer] Work Phone: [place] [phone]qfp B vaccine, pediatric or pediatric/adolescent dosageVanessa Neuhart [employer] Work Phone: [place] [address]Zicowe01-14-1882zjaqrhvew virus vaccineVanessa Neuhart [employer] Work Phone: [facility] ReadingXkixwh44-84-9658mlaklzmchu, tetanus toxoids and acellular pertussis vaccine, unspecified formulationVanessa Neuhart [employer] Work Phone: [place] [phone]zc, mumps and rubella virus vaccineVanessa Neuhart [employer] Work Phone: [facility] ReadingUlekuo87-27-7488jjacozllmd vaccine, inactivatedVanessa Neuhart [employer] Work Phone: [facility] ReadingJnvhpa69-05-6030tiqpzlewil, tetanus toxoids and acellular pertussis vaccine, unspecified formulationVanessa Neuhart [employer] Work Phone: [facility] ReadingSsdeog81-68-2530hdxyeuibely influenzae type b vaccine, conjugate unspecified formulationVanessa Neuhart [employer] Work Phone: [facility] ReadingKxcppi61-84-6223cxsamamok poliovirus vaccine, live, oralVanessa Neuhart [employer] Work Phone: [facility] ReadingJzyqci53-16-6587zvpdyei, mumps and rubella virus vaccineVanessa Neuhart [employer] Work Phone: [facility] ReadingHjspsn47-90-7127uafyaot, mumps and rubella virus vaccineVanessa Neuhart [employer] Work Phone: [facility] ReadingTanzve05-98-9590csnmcrelz virus vaccineVanessa Neuhart [employer] Work Phone: [facility] ReadingQuqxkq68-04-5315iehrowyoih, tetanus toxoids and acellular pertussis vaccine, unspecified formulationVanessa Neuhart [employer] Work Phone: [facility] ReadingKeuzly42-84-4117rdnmntarxxq influenzae type b vaccine, conjugate unspecified formulationVanessa Neuhart [employer] Work Phone: [facility] ReadingVuaytk95-05-4247cqlufpvbah, tetanus toxoids and acellular pertussis vaccine, unspecified formulationVanessa Neuhart [employer] Work Phone: [place] [address]Kzmynp71-12-4390koptaekdmgo influenzae type b vaccine, conjugate unspecified formulationVanessa Neuhart [employer] Work Phone: [place] [address]Skvwce93-17-7476wvdgyivavk vaccine, inactivatedVanessa Neuhart [employer] Work Phone: [facility] ReadingNrbrqu73-61-6976uzgrlkhzfe, tetanus toxoids and acellular pertussis vaccine, unspecified formulationVanessa Neuhart [employer] Work Phone: [facility] ReadingSrrybo24-56-5057tdsdxhchuza influenzae type b vaccine, conjugate unspecified formulationVanessa Neuhart [employer] Work Phone: [facility] ReadingElelvj36-89-5782odkrbohijq vaccine, inactivatedVanessa Neuhart [employer] Work Phone: [facility] ReadingSrmjjn48-08-3244owtseinqs B vaccine, pediatric or pediatric/adolescent dosageVanessa Neuhart [employer] Work Phone: [facility] ReadingIjyfjj68-15-1300lvyopakdh B vaccine, pediatric or pediatric/adolescent dosageVanessa Neuhart [employer] Work Phone: [facility] Payers DatePayer CategoryPayerPolicy [id number] Health Insurance [id number] Health [id number] 2025Medicaid [id number] [id number] [id number]8-7391Qnmphic [id number] Cross Blue ShieldBLUE CROSS - [place] ([place]) [facility] [id number] 2022-Present [address] [place] [address] [id number] Cross Blue Shield [id number] [id number] [id number] 2.16.840.1.986118.3.57[id number] 2.16.840.1.365475.3.57[id number] 2.16.840.1.158448.3.57[id number] 2.16840.1.104866.3.579.[id number] 2.16840.1.313361.3.57[id number] 2.16.840.1.004276.3.579.[id number] 2.840.1.195338.3.579.2.[id number] 2.16840.1.361567.3.57[id number] 2.16840.1.739818.3.57[id number] 2.16.840.1.885087.3.579.2.3[id number] 2.16840.1.797285.3.57[id number] 2.16.840.1.842106.3.57[id number] 2.16840.1.329693.3.57[id number] 2.16.840.1.996499.3.57[id number] 2.16840.1.125266.3.57[id number] 2.16.840.1.901907.3.579.2.6[id number] 2.16.840.1.033618.3.579.2.374025-01-0312Eomtrwd06732951 2.16.840.1.171083.3.57[id number] 2.16.840.1.965233.3.57[id number] 2.16.840.1.522488.3.579.2.655083-57-8983Soiekcv0734294 2.16.840.1.441423.3.579.[id number] 2.16.840.1.404166.3.57[id number] 2.16.840.1.898001.3.579.2.24591[id number] Social History DateTypeDetailFacilityStart: 07-21-2022 End: 90-34-8488Iddkvby smoking status NHISNever smoked tobaccoTrinadams county regional medical center Health Start: 07-21-2022 End: 95-66-1438Sljyvnc use and exposureSmokeless tobacco non-userTrinadams county regional medical center Health Start: 07-21-2022 End: 49-39-4486Bqobvub intakeCurrent drinker of alcohol (finding)[facility] Start: 42-78-0138Fllsxlw CommentOccasional onlyVilla Ridge HealthStart: 1995 Sex Assigned At BirthNot on fileTrinadams county regional medical center HealthStart: 07-10-2022 End: 05-41-4219Unqirftj to SARS-CoV-2 (event)Not sureTrinadams county regional medical center HealthStart: 50-22-3433Wteysep intakeEx-drinker (finding)[facility]Start: 08-27-2023 End: 70-71-5820Teiqmno of Social functionOhioHealthStart: 08-27-2023 End: 67-69-1927BUX UtilitiesOhioHealthHas the electric, gas, oil, or water company threatened to shut off services in your home in past 12MoNoOhioHealth (I/We) worried whether (my/our) food would run out before (I/we) got money to buy more.Never trueOhioHealthStart: 32-80-7247Nk the past 12 months, has lack of transportation kept you from medical appointments or from getting medications? NoOhioHealthStart: 34-72-8465Njmilm identityIdentifies as female gender (finding)OhioHealthTobacco smoking status NHISTobacco smoking consumption unknownNOWY HealthcareStart: 67-49-4996SymliaiqrLAKB HealthcareStart: 11-19-2022 Sexual orientationBisexual (finding)[facility] Goals DatePatient GoalDesired Activity/StatePersonal health goal Clinical Notes 07-21-2022 to 07-06-2025 Note Date & VhtmXjfuZaxfkuno36-42-3668 History of Present illness Narrative* KELL George - 07/06/2025 10:50 AM EDT [...] Noted H/O pre-eclampsia in prior , currently ([facility]) 04/10/2025 History of induced hypertension 04/10/2025 Resolved [...] Vitals: Estimated body mass index is 39.4 kg/m as calculated from the following: Height as of 01/31/22: 5' 3 . Weight as of this encounter: 222 lb 6.4 oz. BP: 124/80 Patient's last menstrual period was 10/13/2024. Assessment/Plan ICD-10-CM 1. Third trimester ([facility]) Z34.93 2. 38 weeks gestation of ([facility]) Z3A.38 POCT urinalysis dipstick manually resulted Return [...] behalf of: KELL George documented in this encounterColumbia Regional HospitalNntwawtggd25-73-3935 History of Present illness Narrative* Quincy Roberts NP - 06/28/2025 9:50 AM EDT [...] Noted H/O pre-eclampsia in prior , currently ([facility]) 04/10/2025 History of induced hypertension 04/10/2025 Resolved [...] nursing note reviewed. Exam conducted with a integration engineer present. Vitals: Estimated body mass index is 39.04 kg/m as calculated from the following: Height as of 01/31/22: 5' 3 . Weight as of this encounter: 220 lb 6.4 oz. BP: 118/78 Patient's last menstrual period was 10/13/2024. Assessment/Plan ICD-10-CM 1. 36 weeks gestation of ([facility]) Z3A.36 POCT urinalysis dipstick manually resulted 2. Third trimester ([facility]) Z34.93 POCT urinalysis dipstick manually resulted 3. Heartburn during in third trimester ([facility]) O26.893 R12 4. H/O pre-eclampsia in prior , currently ([facility]) O09.299 Return OB: Patient presents today for [...] by Lulu Bagley LPN on behalf of: Quincy Roberts NP documented in this encounterColumbia Regional HospitalUflsyqzkqj48-56-1533 History of Present illness Narrative* KELL George - 06/22/2025 10:50 AM EDT [...] Noted H/O pre-eclampsia in prior , currently ([facility]) 04/10/2025 History of induced hypertension 04/10/2025 Resolved [...] ASSESSMENT & PLAN ICD-10-CM 1. Third trimester ([facility]) Z34.93 CULTURE, GROUP B STREP WITH SUSCEPTIBLITY CULTURE, GROUP B STREP WITH SUSCEPTIBLITY 2. 36 weeks gestation of ([facility]) Z3A.36 POCT urinalysis dipstick manually resulted Patient [...] No pertinent surgical history. documented in this encounterColumbia Regional HospitalRfwpmcwqyw23-79-8857 History of Present illness Narrative* Quincy Roberts NP - 06/08/2025 2:50 PM EDT Reason for [...] Noted H/O pre-eclampsia in prior , currently ([facility]) 04/10/2025 History of induced hypertension 04/10/2025 Resolved [...] nursing note reviewed. Exam conducted with a integration engineer present. Vitals: Estimated body mass index is 38.79 kg/m as calculated from the following: Height as of 01/31/22: 5' 3 . Weight as of this encounter: 219 lb. BP: 120/70 Patient's last menstrual period was 10/13/2024. ASSESSMENT & PLAN ICD-10-CM 1. 34 weeks gestation of ([facility]) Z3A.34 POCT urinalysis dipstick manually resulted 2. Third trimester ([facility]) Z34.93 POCT urinalysis dipstick manually resulted 3. Heartburn during in third trimester ([facility]) O26.893 R12 4. H/O pre-eclampsia in prior , currently ([facility]) O09.299 Return OB: Patient presents today for [...] of: Quincy Roberts NP documented in this encounterColumbia Regional HospitalIutetsgfwa59-19-2381 History of Present illness Narrative* KELL George - 05/24/2025 10:20 AM EDT Reason for Appointment: Patient ID: [...] Noted H/O pre-eclampsia in prior , currently ([facility]) 04/10/2025 History of induced hypertension 04/10/2025 Resolved [...] ASSESSMENT & PLAN ICD-10-CM 1. Third trimester ([facility]) Z34.93 POCT urinalysis dipstick manually resulted 2. 31 weeks gestation of ([facility]) Z3A.31 3. Heartburn during in third trimester ([facility]) O26.893 omeprazole (PriLOSEC) [address] capsule [...] behalf of: KELL George documented in this encounterColumbia Regional HospitalQuxfdtjyqz51-46-8065 History of Present illness Narrative* Aretha Pleitez, TRANSITION SPECIALIST - 05/10/2025 2:40 PM EDT Reason for Appointment: Patient ID: [...] Noted H/O pre-eclampsia in prior , currently ([facility]) 04/10/2025 History of induced hypertension 04/10/2025 Resolved [...] nursing note reviewed. Exam conducted with a integration engineer present. Vitals: Estimated body mass index is 38.17 kg/m as calculated from the following: Height as of 01/31/22: 5' 3 . Weight as of this encounter: 215 lb 8 oz. BP: 122/64 Patient's last menstrual period was 10/13/2024. ASSESSMENT & PLAN ICD-10-CM 1. Third trimester ([facility]) Z34.93 POCT urinalysis dipstick manually resulted 2. 29 weeks gestation of ([facility]) Z3A.29 Return OB: Patient presents today for [...] of: Josiah Childs DO documented in this encounterColumbia Regional HospitalAsewppzenq35-71-5960 History of Present illness Narrative* Aretha Pleitez LPN - 04/26/2025 11:10 AM EDT Reason for Appointment: Patient ID: [...] Noted H/O pre-eclampsia in prior , currently ([facility]) 04/10/2025 History of induced hypertension 04/10/2025 Resolved [...] nursing note reviewed. Exam conducted with a integration engineer present. Vitals: Estimated body mass index is 37.87 kg/m as calculated from the following: Height as of 01/31/22: 5' 3 . Weight as of this encounter: 213 lb 12.8 oz. BP: 120/60 Patient's last menstrual period was 10/13/2024. ASSESSMENT & PLAN ICD-10-CM 1. 27 weeks gestation of ([facility]) Z3A.27 POCT urinalysis dipstick manually resulted 2. Second trimester ([facility]) Z34.92 POCT urinalysis dipstick manually resulted 3. History of induced hypertension Z87.59 4. H/O pre-eclampsia in prior , currently ([facility]) O09.299 5. Elevated glucose tolerance test R73.09 [...] of: Josiah Childs DO documented in this encounterColumbia Regional HospitalFrmkivnsuc89-04-1776 History of Present illness Narrative* Quincy Roberts NP - 04/10/2025 11:30 AM EDT [...] Noted H/O pre-eclampsia in prior , currently ([facility]) 04/10/2025 History of induced hypertension 04/10/2025 Resolved [...] nursing note reviewed. Exam conducted with a integration engineer present. Vitals: Estimated body mass index is 37.73 kg/m as calculated from the following: Height as of 01/31/22: 5' 3 . Weight as of this encounter: 213 lb. BP: 118/72 Patient's last menstrual period was 10/13/2024. ASSESSMENT & PLAN ICD-10-CM 1. Second trimester ([facility]) Z34.92 POCT urinalysis dipstick manually resulted 2. 25 weeks gestation of ([facility]) Z3A.25 3. History of induced hypertension Z87.59 4. H/O pre-eclampsia in prior , currently ([facility]) O09.299 5. Diabetes mellitus screening Z13.1 CBC [...] glucose order to obtain and schedule at [facility]. PVU instructions prior to getting labs drawn. Pt had repeat anatomy US done this morning. Orders Placed This Encounter Procedures CBC Glucose tolerance, 1 hour POCT urinalysis dipstick manually resulted Follow Up: Patient is to return to office in 3 week for routine OB appointment. Documented by Kiki Gaspar MA on behalf of: Quincy Roberts NP documented in this encounterColumbia Regional HospitalOajznkasjf70-76-6417 History of Present illness Narrative* KELL George - 03/02/2025 10:20 AM EDT Reason for Appointment: Patient ID: [...] ASSESSMENT & PLAN ICD-10-CM 1. Second trimester ([facility]) Z34.92 POCT urinalysis dipstick manually resulted 2. 20 weeks gestation of ([facility]) Z3A.20 POCT urinalysis dipstick manually resulted Return [...] behalf of: KELL George documented in this encounterColumbia Regional HospitalJbmqljeqdb93-52-1246 History of Present illness Narrative* KELL George - 02/02/2025 10:30 AM EDT Reason for Appointment: Patient ID: [...] nursing note reviewed. Exam conducted with a integration engineer present. Vitals: Estimated body mass index is [...] behalf of: KELL George documented in this encounterColumbia Regional HospitalUlxkwprcjx17-78-2037 History of Present illness Narrative* Akanksha Keys LPN - 01/05/2025 11:20 AM EDT Reason for Appointment: Patient ID: Deirdre Yusuf is a 29 y.o. female who presents for Routine Visit, WellWomen Visit, and STI Screening Patient presents today [...] nursing note reviewed. Exam conducted with a integration engineer present. Vitals: Estimated body mass index is [...] vomiting, unspecified vomiting type R11.2 ondansetron ODT (Zofran- ODT) 4 MG disintegrating tablet 4. Well woman [...] water a day, eat 6 small meals aday, do not consume raw or undercooked meat, and stay away from [facility]. Patient has been consulted regarding any [...] of: Josiah Childs DO documented in this encounterColumbia Regional HospitalQzsgxzoqan66-92-8349 History of Present illness Narrative* Fanny Del Rio LPN - 12/22/2024 2:00 PM EDT Reason for Appointment: Patient ID: Deirdre Yusuf is a 29 y.o. female who presents for Amenorrhea Patient presents today for a Nurse OB Intake appointment. Patient is 10w0d with a Estimated Date ofDelivery: 07/20/25 OB History Para Term AB Living [...] by mouth in the morning and 1 tablet(500 mg) before bedtime. Do all this for 7 days. Nurse Note: OB Intake: Patient presents today for first OB visit. Patients history has been reviewed in great detail including any potential risks. Patient signed consent forms and patient desires testing in both trimesters. Patient currently has no complaints and has been advised to drink 6-8 glasses of water a day, eatno raw or undercooked meat, and stay away from [facility]. Patient has also been advised to not change litter boxes and eat 6 small meals a day. Patient has been consulted regarding the do's and don'ts ofpregnancy. Patient was given labs and all questions [...] Fanny Del Rio LPN documented in this encounterColumbia Regional HospitalUzjltfqxky36-05-5997 Obstetrics Note* Note - NORMA SORENSEN - 01/24/2024 10:31 AM EDT NICU pumping consult completed: -Mom states that [...] discussed frequency and benefit to milk initiation. Encouragedmom to watch hand expression dvd or recommended on line video. Deirdre is currently pumping with 21mm flanges. Encouraged to increase to 24 mm flanges for appropriate fit. States baby may be discharged today with her. Encouraged follow-up with outpatient after discharge. Aware of helpline and resources available. States she has pump for home use. [id number] Miscellaneous Notes* Note - NORMA SORENSEN - 01/24/2024 10:31 AM EDT NICU pumping consult completed: -Mom states that [...] discussed frequency and benefit to milk initiation. Encouragedmom to watch hand expression dvd or recommended on line video. Deirdre is currently pumping with 21mm flanges. Encouraged to increase to 24 mm flanges for appropriate fit. States baby may be discharged today with her. Encouraged follow-up with outpatient after discharge. Aware of helpline and resources available. States she has pump for home use. * Note - Arlen Mauricio RN - 01/23/2024 2:20 PM EDT This note was copied from a baby's [...] bed. Support and encouragement offered to Deirdre. Encouragedto do low cole attempts at followed by pumping. Mom would like to start formula supplementation. Primary nurse will assist and instruct on formula feeding. Deirdre is to follow feeding plan reviewed in consult from this morning until baby is transferred toNICU. Then encouraged pumping 8-12 times/24 hours. Provided with NICU pumping information that we will review prior to discharge. - will follow up 01/23 * Note - Arlen Mauricio RN - 01/23/2024 11:00 AM EDT This note was copied from a baby's chart. Arrived to offer support. Baby is with director staffing at this time. Deirdre states baby has [...] -Reviewed section in Your Guide to and Reserve Care and the Temporary Breastpumping handout. -Primary nurse updated. -Will return this afternoon for assistance with direct . * Note - Mee Armas RN - 01/22/2024 4:37 PM EDT This note was copied from a baby's chart. stopped by patient's room to offer support, however mother was asleep at this time. * Quick Note - Ayah Briceño RN - 01/22/2024 12:15 PM EDT MIV infiltrated. PIV removed. Pt refused restart * L&D Delivery Note - Debbi Perea MD - 01/22/2024 1:11 AM EDT Called to assist with delivery after 3 [...] team. Right shoulder anterior. We were prepared forthis and I had counseled mom on this possibility prior to delivery. No traction applied. Mom instructed to stop pushing. Head of bed down, Nasir did not resolve. Suprapubic pressure not attempteddue to maternal abdominal habitus. Woodscrew maneuver performed by placing pressure over the anterior surface of the left shoulder and rotated baby 180 deg counterclockwise. This brought left shoulder to anterior position which was now released from under the pubic bone and mom pushed to deliver right shoulder and body. gave cry with stimulation, Cord clamped and cut after one minute. Babytaken to warmer for more help with transitioning and quickly became very vigorous. Cord gases collected. Total dystocia time approx 15-20 sec. Placenta delivered spontaneously and intact. Intermittent atony which improved with each successivemed and massage but continued to recur. She was ultimately given IV pitocin, IM methergine, IM hemabate and 1000 mcg rectal cytotec. Marci was placed after laceration repair with final control of bleeding. Small 2nd deg lac but large vaginal sulcal lac on left side (approx 10 cm long). Both repaired with3-0 vicryl. Hemostatic. Fundus firm with marci in place. EBL 976 cc. Shoulder dystocia easy to relieve and likely in part precipitated by forceps delivery- I feel she is a good candidate for another vaginal delivery. Female infant [place] G1 now P1001 Debbi Perea MD STAVE CUTTER [facility] Vaginal Delivery Note Diagnosis: Principal Problem: Mother's Information Delivery Blood Loss 01/21/24 1232 - 01/22/24 0111 Quantitative Blood Loss - Delivery (mL) Hospital Encounter 976 mL Total 976 mL Paramjit Baby Girl Deirdre [[id number]] Delivery Anesthesia Method: Epidural Operative Delivery Forceps [...] well Maternal Response Comments: Right shoulder stuck Reserve Presentation Presentation: Vertex Position: Left _: Occiput _: Anterior Reserve Information date/time: 01/22/2431 Gender: Female Delivery type: Vaginal, Spontaneous Delivery location: OB Unit Provider Present: Indication Initial disposition: Routine NB Care ?: No Details: Delivery Providers Other personnel: Provider Role Covering Attending Resident First Aid Director Delivery Nurse Registered Nurse Delivery Assist Gabriela Augustin, PYTHON DEVELOPER Nurse Practitioner Cord Cord blood obtained?: No Cord segment obtained?: Yes Gases sent?: Yes Stem cell collection (by Provider)?: No Placenta Date/time: 01/22/202435 Removal: Spontaneous Appearance: Intact Reserve Apgars Living status: Living Scoring Cole: 0 [...] 20 Minute: Apgars assigned by: JERSEY CASTANEDA Reserve Measurements Weight: Lacerations No data filed Other Procedures Procedures: None * Quick Note - Petr Knowles MD - 01/21/2024 4:03 AM EDT CTSP for AROM. Cvx 480/-2. Head well applied. AROM performed in usual fashion with return of lightly-meconium stained fluid. No internal monitors were placed. Pt tolerated procedure well. BP 135/73 Pulse 92 Temp 98.7 F (37.1 C) (Oral) Resp 18 Ht 5' 3 (1.6 m) Wt 103.9 kg (229 lb) SpO2 100% BMI 40.57 kg/m FHT 145, moderate variability, present accels, one small variable decels. [place] q1-4min. Category II Petr Knowles MD 01/21/24 4:03 AM * Diego Hazel - Samantha Simeon DO - 01/20/2024 11:54 PM EDT Called by nursing for cervical esteban placement. Patient resting comfortably in bed. VSS: BP (!) 141/90 Pulse 74 Temp 98.3 F (36.8 C) (Oral) Resp 16 Ht 5' 3 (1.6 m) Wt 103.9kg (229 lb) SpO2 98% BMI 40.57 kg/m Cervix:2 80 / -2 BSUS confirmed vertex presentation Esteban coated in betadine and placed in normal sterile fashion, single balloon insufflated with 40ccNS. Pt tolerated procedure well. FHT: 140 / mod hosea / pos accels / no decels TOCO: jennifer irregularly Continue to monitor and manage per attending. Samantha Simeon DO 01/20/24 11:54 PM documented in this [id number] History of Present illness Narrative* Susy Reyes - 01/24/2024 9:00 AM EDT Spiritual Care Progress Note Completed by: Susy Reyes Person(s) Present During this Visit: Patient Not Available Time Spent in Direct Patient Care: 15 Narrative: This snow ranger provided introductory visit during pastoral care rounds. Patient unavailable for visit. Family not present at time of visit. Aba Therapist left card with information regarding pastoral care services, 30/03 availability, and how to contact a snow ranger. Pastoral Care team will remain available to support patient and family PRN. Patients Response to Pastoral Care: Other (see comment) Planning for Future Visits: PRN 01/24/24 0900 Visit Background Visit With Patient Not Available Visit By Transit Department Clerk Visit Progression Introduction Visit Requested By Aba Therapist Initiated Visit Source Aba Therapist Initiated Visit Type Rounding Visit Circumstances and Events Routine Visit Visit Length (minutes) 15 Patient's Response to Pastoral Care Other (see comment) Visit Planning PRN Spiritual Assessment Unable to Assess during this visit Restorationist Assessment Unable to Assess during this visit Family assessment provided? Unable to asess during this visit Susy Reyes MDiv Transit Department Clerk, Pastoral Care [facility] [phone] * Alissa Billy RN - 01/23/2024 11:59 AM EDT Anesthesia Progress Note Assessment / Plan In no acute distress. Awake and alert, LOC x 3. ANKUR x 4, denies LE paresthesias, ambulatory. Deniespositional headache, neck pain or stiffness. Questions answered. Temp: [36.7 C-37.3 C] 36.7 C Heart Rate: [83-101] 83 Resp: [16] 16 BP: (116-127)/(74-86) 118/81 * Frankie Artis MD - 01/23/2024 5:53 AM EDT PPD 1 PT SLEEPING COMFORTABLY TALKED WITH FOB REPORTS NO ISSUE AFEB VSS ABD APPROPRIATE A/P DOING WELL PP D 1 DISCHARGE TOMORROW DISCUSSED FOLLOW UP PLANS IN LIGHT OF SIGNIFICANT BLOOD LOSS WITH DELIVERY REPEAT H/H TODAY * Sandhya Ramos CNP - 01/22/2024 8:15 AM EDT Vaginal Delivery Progress Note Assessment/Plan: Status post [...] exam Sandhya Ramos CNP 01/22/24 8:15 AM * Petr Knowles MD - 01/22/2024 3:03 AM EDT Bedside to evaluate Marci balloon. Fundus firm at U. No vaginal bleeding around the Marci device. Suprapubic pressure applied Marci removed without difficulty. Fundus firm at U -1. Vaginal bleeding minimal. * Frankie Bone MD - 01/21/2024 10:04 AM EDT Cx 6/c/-2 Well applied Fht cat 1 Continue trial of labor documented in this [id number] Hospital Discharge instructions * Discharge Instr - Other Orders* Nazia Herbert RN - 01/24/2024 7:59 AM EDT For [...] that first appeared in late 2018 in [facility] [place]. The COVID-19 virus has since been carried [...] through respiratory droplets when an infected person sneezesor coughs, just like the flu. These droplets [...] at least 20 seconds. Use an alcohol-based dredgemaster if soap and water are not available. [...] someone from isolation is made on a gfmv-qn-lflh basis by doctors, infection prevention and control [...] if I was swabbed to be tested? [facility] is following strict testing criteria for the moment based on risk factors and presentingsymptoms. If you had a swab(s) taken today, [...] treat others that are critically ill from COVID- 19. You can find more information to become aplasma donor at [email or web address] or call 6-776-CLU-CROSS ( ). For more information, please visit the CDC website at https://www.cdc.gov/coronavirus/2019-nCoV/index.html. Information is constantly changing as we learn more about this disease. [facility] for [facility] * Attachments The following attachments cannot be sent through Care Everywhere. * (Bhutanese) * Care: Vaginal : Baby in NICU (Bhutanese) * : Vaginal Delivery (Bhutanese) documented in this [id number] Obstetrics Note* Note - Arlen Mauricio RN - 01/23/2024 2:20 PM EDT This note was copied from a baby's [...] bed. Support and encouragement offered to Deirdre. Encouragedto do low cole attempts at followed by pumping. Mom would like to start formula supplementation. Primary nurse will assist and instruct on formula feeding. Deirdre is to follow feeding plan reviewed in consult from this morning until baby is transferred toNICU. Then encouraged pumping 8-12 times/24 hours. Provided with NICU pumping information that we will review prior to discharge. - will follow up 01/23 [id number] Obstetrics Note* Note - Arlen Mauricio RN - 01/23/2024 11:00 AM EDT This note was copied from a baby's chart. Arrived to offer support. Baby is with director staffing at this time. Deirdre states baby has [...] this afternoon for assistance with direct . [id number] Hospital course Narrative* Frankie Artis MD - 01/23/2024 5:56 AM EDT 28 YO P1 WHO UNDERWENT FAVD WITH UNREMARKABLE COURSE documented in this [id number] NotePPD 1 PT SLEEPING COMFORTABLY TALKED WITH FOB REPORTS NO ISSUE AFEB VSS ABD APPROPRIATE A/P DOING WELL PP D 1 DISCHARGE TOMORROW DISCUSSED FOLLOW UP PLANS IN LIGHT OF SIGNIFICANT BLOOD LOSS WITH DELIVERY REPEAT H/H TODAY AUTHENTICATED BY FRANKIE ARTIS, ON 01/23/2024 05:59:02[facility]stetrics Note* Note - Mee Armas RN - 01/22/2024 4:37 PM EDT This note was copied from a baby's chart. LC stopped by patient's room to offer support, however mother was asleep at this time. [id number] Note* Quick Note - Ayah Briceño RN - 01/22/2024 12:15 PM EDT MIV infiltrated. PIV removed. Pt refused restart [id number] NoteVaginal Delivery Progress Note Assessment/Plan: Status post Vaginal [...] AM AUTHENTICATED BY SANDHYA RAMOS, ON 01/22/2024 08:17:04[facility]05-17-2024 NoteBedside to evaluate Marci balloon. Fundus firm at U. No vaginal bleeding around the Marci device. Suprapubic pressure applied Marci removed without difficulty. Fundus firm at U -1. Vaginal bleeding minimal. AUTHENTICATED BY PETR KNOWLES, ON 01/22/2024 03:05:44[facility]05-17-2024 Labor and delivery summary note* L&D Delivery Note - Debbi Perea MD - 01/22/2024 1:11 AM EDT Called to assist with delivery after 3 [...] team. Right shoulder anterior. We were prepared forthis and I had counseled mom on this possibility prior to delivery. No traction applied. Mom instructed to stop pushing. Head of bed down, Nasir did not resolve. Suprapubic pressure not attempteddue to maternal abdominal habitus. Woodscrew maneuver performed by placing pressure over the anterior surface of the left shoulder and rotated baby 180 deg counterclockwise. This brought left shoulder to anterior position which was now released from under the pubic bone and mom pushed to deliver right shoulder and body. Infant gave cry with stimulation, Cord clamped and cut after one minute. Babytaken to warmer for more help with transitioning and quickly became very vigorous. Cord gases collec alberto. Total dystocia time approx 15-20 sec. Placenta delivered spontaneously and intact. Intermittent atony which improved with each successivemed and massage but continued to recur. She was ultimately given IV pitocin, IM methergine, IM hemabate and 1000 mcg rectal cytotec. Marci was placed after laceration repair with final control of bleeding. Small 2nd deg lac but large vaginal sulcal lac on left side (approx 10 cm long). Both repaired with3-0 vicryl. Hemostatic. Fundus firm with marci in place. EBL 976 cc. Shoulder dystocia easy to relieve and likely in part precipitated by forceps delivery- I feel she is a good candidate for another vaginal delivery. Female [place] G1 now P1001 Debbi Perea MD STAVE CUTTER [facility] [place] Vaginal Delivery Note Diagnosis: Principal Problem: Mother's Information Delivery Blood Loss 01/21/24 1232 - 01/22/24 0111 Quantitative Blood Loss - Delivery (mL) Hospital Encounter 976 mL Total 976 mL Paramjit, Baby Girl Deirdre [[id number]] Delivery Anesthesia Method: Epidural Operative Delivery Forceps [...] well Maternal Response Comments: Right shoulder stuck Reserve Presentation Presentation: Vertex Position: Left _: Occiput _: Anterior Information date/time: 01/22/2431 Gender: Female Delivery type: Vaginal, Spontaneous Delivery location: OB Unit Provider Present: Indication Initial disposition: Routine NB Care ?: No Details: Delivery Providers Other personnel: Provider Role Covering Attending Resident First Aid Director Delivery Nurse Registered Nurse Delivery Assist Gabriela Augustin CNP Nurse Practitioner Cord Cord blood obtained?: No Cord segment obtained?: Yes Gases sent?: Yes Stem cell collection (by Provider)?: No Placenta Date/time: 01/22/202435 Removal: Spontaneous Appearance: Intact Reserve Apgars Living status: Living Scoring Cole: 0 [...] No data filed Other Procedures Procedures: None [employer] Work Phone: [phone]) 122-358305-16-2024 NoteCx 6/c/-2 Well applied Fht cat 1 Continue trial of labor AUTHENTICATED BY FRANKIE BONE, ON 01/21/2024 10:04:42[facility]05-16-2024 Note* Quick Note - Petr Knowles MD - 01/21/2024 4:03 AM EDT CTSP for AROM. Cvx 4/80/-2. Head well [...] variability, present accels, one small variable decels. [place] q1-4min. Category II Petr Knowles MD 01/21/24 4:03 AM [id number] History and physical note* James Foley MD - 01/21/2024 12:39 AM EDT HISTORY AND PHYSICAL UPDATE Assessment/Plan: Principal Problem: [...] James Foley MD 01/21/2024 12:39 AM T [id number] NoteHISTORY AND PHYSICAL UPDATE Assessment/Plan: Principal Problem: IUP [...] AM AUTHENTICATED BY JAMES FOLEY, ON 01/21/2024 00:40:36[facility]05-16-2024 History and physical note* James Foley MD - 01/21/2024 12:39 AM EDT HISTORY AND PHYSICAL UPDATE Assessment/Plan: Principal Problem: [...] MD 01/21/2024 12:39 AM documented in this [id number] Note* Quick Note - Samantha Simeon DO - 01/20/2024 11:54 PM EDT Called by nursing for cervical esteban placement. Patient resting comfortably in bed. VSS: BP (!) 141/90 Pulse 74 Temp 98.3 F (36.8 C) (Oral) Resp 16 Ht 5' 3 (1.6 m) Wt 103.9kg (229 lb) SpO2 98% BMI 40.57 kg/m Cervix:2 / 80 / -2 BSUS confirmed vertex presentation Esteban coated in betadine and placed in normal sterile fashion, single balloon insufflated with 40ccNS. Pt tolerated procedure well. FHT: 140 / mod hosea / pos accels / no decels TOCO: jennifer irregularly Continue to monitor and manage per attending. Samantha Simeon DO 01/20/24 11:54 PM [employer] Work Phone: [phone] 161-302305-12-2023 History of Present illness Narrative* Ej Burk NP - 01/16/2023 11:25 AM EDT Deirdre, thank you for selecting [facility] for your health care needs. Thank [...] will send the medications to your pharmacy. * Carmella Dockery MA - 01/16/2023 11:25 AM EDT Pt states here today for 6-month chronic care visit. * Ej Burk NP - 01/16/2023 11:25 AM EDT PATIENT'S PCP: Ej Burk NP LAST VISIT [...] for abdominal distention, abdominal pain, anal bleeding, bloodin stool, constipation, diarrhea, nausea, rectal pain and [...] self-injury, sleep disturbance and suicidal ideas. The patientis nervous/anxious. The patient is not hyperactive. All [...] nasal spray Administer 2 sprays into each nostril1 (one) time each day. Shake gently. Before first use, prime pump. After use, clean tip and replacecap. 30 mL 3 hydrOXYzine HCL (ATARAX) 50 [...] Status Bacterial vaginosis 08/25/2022 Negative Negative Final Ashia Species 08/25/2022 Negative Negative Final Ashia glabrata 08/25/2022 Negative Negative Final Trichomonas vaginosis [...] Final No Organisms Detected Test Performed at: [facility] [address] [facility] [place] [address] Bree Baker MD, PhD Comment: 08/25/2022 TNP Final Pressure Welder: 08/25/2022 SEE NOTE Final Screener JBM CT(ASCP) [...] been evaluated with computer assisted technology. Review Pressure Welder: 08/25/2022 [facility] Final Pathologist: 08/25/2022 [facility] Final Physical Exam: Physical Exam Vitals and nursing note reviewed. Constitutional: General: She is not in acute distress. Appearance: Normal appearance. She is not ill-appearing. HENT: Head: Normocephalic and atraumatic. Right Ear: External ear normal. Left Ear: External ear normal. Nose: Nose normal. Mouth/Throat: Lips: [place]. Comments: Mask in place during examination. Eyes: [...] Patient Instructions Deirdre, thank you for selecting [facility] for your health care needs. Thank [...] illnesses. Ej Burk NP documented in this encounterEncompass Health Rehabilitation Hospital Of [id number] History of Present illness Narrative* Ej Burk NP - 08/25/2022 11:00 AM EST Deirdre, thank you for selecting [facility] for your health care needs. Thank [...] will send the medications to your pharmacy. * Ej Burk NP - 08/25/2022 11:00 AM EST PATIENT'S PCP: Ej Burk NP LAST VISIT [...] for abdominal distention, abdominal pain, anal bleeding, bloodin stool, constipation, diarrhea, nausea, rectal pain and [...] Negative. Negative for agitation, behavioral problems, confusion, decreasedconcentration, dysphoric mood, hallucinations, self-injury, sleep disturbance and [...] nasal spray Administer 2 sprays into each nostril1 (one) time each day. Shake gently. Before first use, prime pump. After use, clean tip and replacecap. 30 mL 3 hydrOXYzine HCL (ATARAX) 50 [...] Patient Instructions Deirdre, thank you for selecting [facility] for your health care needs. Thank [...] Visit. Ej Burk NP documented in this encounterEncompass Health Rehabilitation Hospital Of [id number] History of Present illness Narrative* Ej Burk NP - 07/21/2022 10:30 AM EST Deirdre thank you for selecting [facility] for your health care needs. Thank [...] Meseret (Fexofenadine) are the most commonly used kstp-rkq-pzhzkea allergies/antihistamine medications. You may also benefit from [...] is designed for individuals suffering from hypertension. * Ej Burk NP - 07/21/2022 10:30 AM EST PATIENT'S PCP: Ej Burk NP LAST VISIT IN THIS DEPARTMENT: Visit date not found Deirdre MONSON is a 26 y.o. (: 1995) female who presents today for: Chief Complaint Patient presents with Numbness Patient complains of waking up with numbness in both hands X 2-3 months, used to happen before thenbut not as often, wakes her up twice [...] pain bilaterally since she began working the [employer]. Also reports a history of allergies [...] for abdominal distention, abdominal pain, anal bleeding, bloodin stool, constipation, diarrhea, nausea, rectal pain and [...] Negative. Negative for agitation, behavioral problems, confusion, decreasedconcentration, dysphoric mood, hallucinations, self-injury, sleep disturbance and [...] nasal spray Administer 2 sprays into each nostril1 (one) time each day. Shake gently. Before first use, prime pump. After use, clean tip and replacecap. 30 mL 3 No facility-administered encounter medications on file as of 07/21/2022. IMMUNIZATION HISTORY: Immunization History Administered Date(s) Administered Influenza, injectable, quadrivalent, preservative free 07/21/2022 [email or web address] SARS-CoV-2 COVID-19, mRNA, LNP-S, preservative free 11/27/2020, [...] ear normal. Nose: Nose normal. Mouth/Throat: Lips: [place]. Comments: Mask in place during examination. Eyes: [...] Patient Instructions Deirdre, thank you for selecting [facility] for your health care needs. Thank [...] Meseret (Fexofenadine) are the most commonly used emxc-tit-nfncldi allergies/antihistamine medications. You may also benefit from [...] illnesses. Ej Burk NP documented in this encounterEncompass Health Rehabilitation Hospital Of ReadingEvalubayhealth emergency [facility], [place] note* Diagnosis Allergic rhinitis, unspecified seasonality, unspecified trigger- Primary Pain in both upper extremities Adult general medical examination Unspecified general medical examination Need for influenza vaccination Need for prophylactic vaccination and inoculation against influenza [facility] [place] [facility]* Diagnosis Encounter for gynecological examination without abnormal finding- Primary Screening for STD (sexually transmitted disease) Screening for cervical cancer Screening for malignant neoplasm of the cervix documented [facility] [place] [facility]* Diagnosis Allergic rhinitis, unspecified seasonality, unspecified trigger documented in this encounter [facility] note* Diagnosis Adult general medical examination- Primary Unspecified general medical examination Bipolar 1 disorder ([facility]) Seasonal allergies Allergic rhinitis, cause unspecified documented [facility] [place] [facility]* Diagnosis - Primary state, incidental documented in this encounter [facility] note* Diagnosis Missed menses , unspecified gestational age Encounter for supervision of normal first in first trimester BV (bacterial vaginosis) Unspecified vaginitis and vulvovaginitis [facility] Diagnosis First trimester state, incidental 12 weeks gestation of Nausea and vomiting, unspecified vomiting type Well woman exam with routine gynecological exam Routine gynecological examination Vaginal discharge Leukorrhea, not specified as infective STD exposure [facility]* Diagnosis 16 weeks gestation of Second trimester state, incidental Screening, , for anatomic survey Encounter for anatomic survey [facility]* Diagnosis Second trimester ([facility]-HCC) state, incidental 20 weeks gestation of (HHS-HCC) [facility]* Diagnosis Second trimester ([facility]HS-HCC) state, incidental 25 weeks gestation of (HHS-HCC) History of induced hypertension H/O pre-eclampsia in prior , currently (HHS-HCC) Diabetes mellitus screening Screening for diabetes mellitus [facility]* Diagnosis 27 weeks gestation of ([facility]HS-HCC) Second trimester (HHS-HCC) state, incidental History of induced hypertension H/O pre-eclampsia in prior , currently (HHS-HCC) Elevated glucose tolerance test Impaired glucose tolerance test Vaginal discharge Leukorrhea, not specified as infective size inconsistent with dates (HHS-HCC) Yeast infection [facility]* [...] of ([facility]) [facility]* Diagnosis 36 weeks gestation of (HHS-HCC) Third trimester (HHS-HCC) state, incidental Heartburn during in third trimester (HHS-HCC) H/O pre-eclampsia in prior , currently (HHS-HCC) [facility]* Diagnosis Third trimester (HHS-HCC) state, incidental 38 weeks gestation of ([facility]) documented [facility]* Attachments The following attachments cannot be sent through Care Everywhere. * Wrist: Exercises (Bhutanese) documented in this encounterEncompass Health Rehabilitation Hospital Of ReadingReason for referral (narrative)* Consultation (Routine) - AuthorizedSpecialtyDiagnoses / ProceduresReferred By ContactReferred To ContactPsychiatry Diagnoses Bipolar 1 disorder ([facility]) Ej Burk NP [address] [place] [address] Referral IDStatusReasonStart DateExpiration DateVisits RequestedVisits [id number] Specialty Services Required / [facility] Summary Purpose Family History No Family History Records FoundNo Family History Records FoundNo Family History Records FoundNo Family History Records FoundNo Family History Records FoundNo Family History Records Found Advance Directives No Advanced Directives Records Found Date ActivatedDate InactivatedComments01/22/2024 5:02 AM01/24/2024 6:06 PMDate ActivatedDate InactivatedComments01/22/2024 12:48 AM01/22/2024 3:31 AMDate ActivatedDate InactivatedComments01/20/2024 8:58 PM01/22/2024 12:48 AM Additional Source Comments INFORMATION SOURCE (unrecogn ized section and content) DATE CREATED AUTHOR 03/30/2020 [facility] DATE CREATED AUTHOR AUTHOR'S ORGANIZ ATION 08/28/2021 [facility] DATE CREATED AUTHOR AUTHOR'S ORGANIZ ATION 01/19/2023 [facility] DATE CREATED AUTHOR AUTHOR'S ORGANIZ ATION 08/29/2023 [facility] DATE CREATED AUTHOR AUTHOR'S ORGANIZ ATION 08/02/2024 [facility] DATE CREATED AUTHOR AUTHOR'S ORGANIZ ATION 07/08/2025 [facility] EPIC Reason for Visit (unrecogniz ed section and content) ReasonCommentsNumbnessPatient complains of waking up with numbness in both hands X 2-3 months, used to happen before thenbut not as often, wakes her up twice nightly, seems to think repetitive hands movement from working.SneezingComplains of sneezing constantly, can't breathe at night, nose drips. It only happens at home, and she has cats, but she has never had this problem before.ReasonComments Gynecologic ExamPatient states here today for pap smear.ReasonOnset DateComments Med Myzohb5611/20/2022ReasonCommentsChronic Care Visit (CCV)SpecialtyDiagnoses / ProceduresReferred By ContactReferred To Contact Diagnoses Referral IDStatusReasonStart DateExpiration DateVisits RequestedVisits [id number]evtqtabFguxifg Visit Well Women VisitSTI ScreeningReasonCommentsRoutine Visit Ordered Prescriptions (unrec ognized section and content) PrescriptionSigDispensedRefillsStart DateEnd Date fluticasone propionate (FLONASE) 50 mcg/actuation nasal spray Indications:Allergic rhinitis, unspecified seasonality, unspecified trigger Administer 2 sprays into each nostril 1 (one) time each day. Shake gently. Before first use, prime pump. After use, clean tip and replace cap. 30 mL cetirizine (ZyrTEC) 10 mg tablet Indications:Allergic rhinitis, unspecified seasonality, unspecified triggerTake 1 tablet (10 mg total) by mouth 1 (one) time each day if needed for allergies. 90 tablet rescriptionSigDispensedRefillsStart DateEnd cetirizine (ZyrTEC) 10 mg tablet Indications:Allergic rhinitis, unspecified seasonality, unspecified triggerTake 1 tablet (10 mg total) by mouth 1 (one) time each day if needed for allergies. 90 tablet Care Teams (unrecognized sec tion and content) Team MemberRelationshipSpecialtyStart DateEnd Date Ej Burk NP [address] [place] [address] PCP - GeneralFamily Egztnooq72/8/22Team MemberRelationshipSpecialtyStart DateEnd Date Ej Burk, SUPER[employer]OR [employer] [address] [place] [address] PCP - [facility]07/15/22Team MemberRelationshipSpecialtyStart DateEnd Date Ej Burk, SUPER[employer] [address] [place] [address] PCP - [facility]07/15/22Team MemberRelationshipSpecialtyStart DateEnd Date Ej Burk, SUPERVISOR [employer] [address] [place] [address] PCP - [facility]07/15/22Team MemberRelationshipSpecialtyStart DateEnd Date Ej Burk, PYTHON DEVELOPER [address] [place] [address] PCP - General01/13/24Team MemberRelationshipSpecialtyStart DateEnd Date Unallocated, Nombrittnee Waller MD [facility] [address] PCP - [facility]01/25/24Team MemberRelationshipSpecialtyStart DateEnd Date Unallocated, Nombrittnee Waller MD [address] [place] [address] PCP - [facility]01/25/24Team MemberRelationshipSpecialtyStart DateEnd Date Unallocated, Pilo Waller MD [facility] [place] [address] PCP - [facility]01/25/24Team MemberRelationshipSpecialtyStart DateEnd Date Unallocated, Pilo Waller MD [address] [place], [place] [address] [address] PCP - GeneralFamily Medicine01/25/24Team MemberRelationshipSpecialtyStart DateEnd Date Unallocated, Noms ProviderMD [facility] [place] [address] PCP - GeneralFamily Medicine01/25/24Team MemberRelationshipSpecialtyStart DateEnd Date Unallocated, Noms ProviderMD [facility] [place] [address] PCP - Generalmily Medicine01/25/24Team MemberRelationshipSpecialtyStart DateEnd Date Unallocated, Noms MD Christin [facility] [address] [facility] [place] [address] PCP - [facility] Medicine01/25/24Team MemberRelationshipSpecialtyStart DateEnd Date Unallocated, Noms ProviderMD [facility] [place] [address] [facility] - [facility]/25/24Te MemberRelationshipSpecialtyStart DateEnd Date Unallocated, Noms MD Christin [address] [place] [address], [place] [address] PCP - Generalmily Medicine01/25/24Te MemberRelationshipSpecialtyStart DateEnd Date Unallocated, Noms MD Christin [address] [place] [address], [place] [address] [facility] - [facility]01/25/24Te MemberRelationshipSpecialtyStart DateEnd Date Unallocated, Noms ProviderMD [facility] [place] [address] PCP - [facility] Centerly Medicine01/25/24Team MemberRelationshipSpecialtyStart DateEnd Date Unallocated, Pilo ProviderMD [address] [place] [address] PCP - [facility]01/25/24Te MemberRelationshipSpecialtyStart DateEnd Date Unallocated, Pilo Waller MD [address] [place] [address] PCP - [facility]01/25/24Team MemberRelationshipSpecialtyStart DateEnd Date Unallocated, Pilo Waller MD [address] [facility] [place] [address] PCP - [facility]01/25/24 Scheduled Active and Recently Administ ered Medications (unrecognized section and content) Medication Order01/21//// ferrous sulfate tablet 325 mg 325 mg, Oral, Daily with breakfast, First dose on Thu01/22/24 at 0800 * 0957 (Given - Provider: Ayah Briceño RN) * 0906 (Given - Provider: Mindy Mendoza RN) * 0900 (Given - Provider: Nazia Herbert RN) ibuprofen (ADVIL,MOTRIN) tablet 600 mg 600 mg, Oral, Every 6 hours scheduled, First dose on Thu01/22/24 at 1200, , Give with food. Do not give within 6 hours of other NSAIDS, initial ibuprofen dose or ketorolac (Toradol). Do NotCrush or Chew if administering orally due to bitter taste. May be crushed if given via tube. * 1215 (Given - Provider: Ayah Briceño, TARYN) * 1746 (Given - Provider: Mima Sosa RN) * 0050 (Given - Provider: Ally Austin, TARYN) * 0618 (Given - Provider: Ally Austin, TARYN) * 1153 (Given - Provider: Mindy Mendoza RN) * 1744 (Given - Provider: Gema Christian RN) * 0017 (Given - Provider: Ally Austin, TARYN) * 0600 (Given - Provider: Ally Austin RN) * 1250 (Given - Provider: Nazia Herbert RN) Medication Order/// ROPivacaine (NAROPIN) 2 mg/mL (0.2 %) PCEA infusion Epidural, Continuous, Starting on [place] 01/21/24 at 0400, Sign and Release, Only the patient is permitted to push the PCEA button., Continous Infusion: 10 mL/hr, PCEA Bolus Dose: 5 mL, PCEA Bolus Lockout Interval: 15 minutes, Number of Boluses per Hour: 4 Medication Order/// acetaminophen (TYLENOL) tablet 650 mg 650 mg, Oral, Every 4 hours PRN, mild pain, Starting on [place] 01/21/24 at 0305, Sign and Release * 0938 (Due) acetaminophen (TYLENOL) tablet 650 mg 650 mg, Oral, Every 4 hours PRN, mild pain, Starting on 01/22/24 at 0502, * 0957 (Given - Provider: Ayah Briceño RN) aluminum-magnesium hydroxide-simethicone (MAALOX PLUS) 200-200-20 mg/5 mL suspension 30 mL 30 mL, Oral, Every 4 hours PRN, indigestion, Starting on Thu01/22/24 at 0502, carboprost (HEMABATE) injection 250 mcg (COMPLETED) 250 mcg, Intramuscular, Once as needed, hemorrhage, Starting on Thu01/22/24 at 0048, For1 dose, Labor & Delivery, Only give as directed by physician Do not administer to asthmatics. * 0057 (Given - Provider: Claudia Bah RN) carboprost (HEMABATE) injection 250 mcg 250 mcg, Intramuscular, Once as needed, hemorrhage, Starting on Thu01/22/24 at 0502, For1 dose, , Only give as directed by [...] If indicated, administer prior to discharge. Provide [facility] vaccine information sheet(s) (VIS) for patient for vaccines administered. Tip cap contains LATEX. Use caution when handling if you have a latex allergy. Okay to administer to patient with latex allergy docusate sodium (COLACE) capsule 100 mg 100 mg, Oral, 2 times daily PRN, constipation, Starting on Thu01/22/24 at 0502, , Hold for loose stools DO NOT CRUSH OR CHEW. * 0957 (Given - Provider: Ayah Briceño, TARYN) * 2102 (Given - Provider: Mima Sosa, TARYN) * 0906 (Given - Provider: Mindy Mendoza, TARYN) * 0017 (Given - Provider: Ally Austin, TARYN) * 1250 (Given - Provider: Nazia Herbert, TARYN) HYDROmorphone (DILAUDID) injection 0.5 mg (COMPLETED) 0.5 mg, Intravenous, Once as needed, Pain Associated with Hemorrhage Management., Starting on Thu01/20/24 at 2057, For 1 dose, Labor & Delivery * 0208 (Given - Provider: Claudia Bah, TARYN) HYDROmorphone (DILAUDID) injection 0.5 mg 0.5 mg, Intravenous, Every 15 min PRN, While on Epidural, for moderate to severe breakthrough pain,Starting on Thu01/21/24 at 0305, Sign and Release, Use IV if moderate to severe pain persists 30 minutes after one dose of sublingual oxycodone or morphine, or if sublingual route not ordered. Do notexceed 1 mg per hour. Call anesthesia if moderate to severe pain persists 15 minutes after a secondIV dose given within an hour. * 0309 (Given - Provider: Claudia Bah RN) [...] May be crushed if given via tube. * 0309 (Given - Provider: Claudia Bah RN) loperamide (IMODIUM) capsule 2 mg 2 mg, Oral, 4 times daily PRN, diarrhea, Starting on Thu01/22/24 at 0051, Do not exceed 16 MG (8 caps)/ 24 HRS * 0112 (Given - Provider: Claudia Bah RN) measles, mumps and rubella vaccine (MMR) 1,000-12,500 TCID50/0.5 mL injection 0.5 mL 0.5 mL, Subcutaneous, Prior To Discharge, administer vaccine prior to discharge, Based on vaccine assessment, Starting on Thu01/22/24 at 0502, For 1 dose, , If indicated and not previously vaccinated. Complete Vaccine Assessments. If indicated, administer prior to discharge. Provide [facility] vaccine information sheet(s) (VIS) for patient for vaccines administered. methylergonovine (METHERGINE) injection 200 mcg 200 mcg, Intramuscular, Once as needed, hemorrhage, Starting on Thu01/22/24 at 0502, For1 dose, , Only give as directed by physician DO NOT ADMINISTER IF BP greater than 140/90 or pre-existing hypertension. CATEGORY B HAZARDOUS DRUG use safe handling precautions. Use referencelink to view PPE guidelines. Safe handling precautions only required when in the third trimester. EMERGENCY Hazardous Drug use professional judgement when deviating from standard handling precautions. methylergonovine (METHERGINE) injection (COMPLETED) Intramuscular, Code/trauma/sedation medication, Starting on Thu01/22/24 at 0058 * 0058 (Given - Provider: Claudia Bah RN) [...] on [place] 01/21/24 at 0305, Sign and Release,For itching while Epidural Infusion orders in effect. [...] (NARCAN) 0.4 mg (1mL) with 9 mL ofNormal Saline to total 10 mL. Administer 0.1 [...] view PPE guidelines. Safe handling precautions only requiredwhen in the third trimester. EMERGENCY Haz Drug use professional judgement when deviating f rom standard handling precautions. rho(d) immune globulin (RHOPHYLAC) [...] needed, hemorrhage, Starting on Thu01/22/24 at 0502, For1 dose, , Only give as directed by [...] as directed by physician. This is a REPEATDOSE, and should be given IF DIRECTED if [...] If indicated, administer prior to discharge. Provide [facility] vaccine information sheet(s) (VIS) for patient for vaccines administered. Order Group 1: diphenhydrAMINE (BENADRYL) tablet 25 [...] to 8 per minute, notify physician and/or appropriatestaff for additional orders. While on EPIDURAL infusion., [...] (NARCAN) 0.4 mg (1mL) with 9 mL ofNormal Saline to total 10 mL. Administer 0.1 [...] BE BASED ON THE PRIMARY CLINICAL RECORDS. [facility]. provides no warranty or guarantee of the accuracy or completeness of information in this document.
--- OUTSIDE RECORDS SUMMARY | 2025-07-12 23:03 | XMS_ITS ---
Author Organization [facility] Address [address] [place] [address] Care Team Providers Care Moisture Meter Reader Name Role Phone Unallocated, Noms Provider Primary Care [facility] Status:Declined (Declined) Start date:06/22/2025 Enrollment date:06/30/2025 Enrollment reason:Identified by Health Plan End date:06/30/2025 Decline reason:Patient declined Overview Pt declines due to late in . Continued Care and Services Coordination
--- OUTSIDE RECORDS SUMMARY | 2025-07-12 23:03 | XMS_ITS | Encounter Summary ---
Author Organization [facility] Address [address] [place] [address] Care Team Providers Care Self Sealing Fuel Tank Repairer Name Role Phone Unallocated, Noms Provider Primary Care [facility] Encounter Details DateTypeDepartmentCare Team (Latest Contact Info)Lnfcesyfoyf21/24/2025bstract [facility] [address] [place] [address] Ernestine Martin, REGIONAL EDUCATION COORDINATOR [address] [place] [address] Social History Tobacco UseTypesPacks/DayYears UsedDateSmoking Tobacco: Never Assessed Estimated Date of NnowugdmEglnimnxSzt20/13/2025Based on last menstrual period of 10/13/2024Sex and Gender InformationValueDate RecordedSex Assigned at BirthNot on fileLegal LriNmagvx29/15/2023 6:51 PM EDTGender RziobgbzHtlfmz01/15/2023 6:51 PM EDTSexual HougoaizkhpKwdbqzfh92/15/2023 6:51 PM EDTdocumented as of this encounter Plan of Treatment Not on file documented as of this encounter Goals GoalPatient Goal TypeAssociated ProblemsRecent ProgressPatient-Stated?Author Reminders Care PlanOB RemindersNoOpen Scheduling, Backgrounddocumented as of this encounter Visit Diagnoses Not on filedocumented in this encounter Additional Health Concerns Active ProblemsNoted DateDiagnosed DateOB Ktmfsqkmo01/20/2025 documented as of this encounter Care Teams Team MemberRelationshipSpecialtyStart DateEnd Date Unallocated, Noms Provider, [address] [place] [address] PCP - GeneralFamily Medicine01/25/24documented as of this encounter
--- OUTSIDE RECORDS SUMMARY | 2025-07-12 23:03 | XMS_ITS | Clinical Summary ---
Author Organization SeeSpace tem Address [id number] [place] [address] Care Team Providers Care Commercial Drone Software Developer Name Role Phone No Pcp, No Pcp Primary Care Provider Unavailabl e Allergies Active AllergyReactionsCriticalityNoted YyjkVfteoqiuDpkpeydsxbe12/20/2017 Medications * This document contains information received from the source organization and may not represent a complete record from that organization. MedicationSigDispense QuantityRefillsLast FilledStart DateEnd DateStatus hydrOXYzine (ATARAX) 10 mg tablet Take 10 mg by mouth 3 (three) times a day as needed for itching.Active ondansetron ODT (ZOFRAN-ODT) 4 mg disintegrating tablet Dissolve 1 tablet (4 mg total) on tongue every 8 (eight) hours as needed for nausea for up to 10 doses. 10 tablet 01/03/2021ctive dicyclomine (BENTYL) 20 mg tablet Take 1 tablet (20 mg total) by mouth 4 (four) times a day as needed (abdominal cramping). 10 tablet 1Active Active Problems ProblemNoted DateDiagnosed DateTylenol aelsydmx24/14/2018 Social History Tobacco UseTypesPacks/DayYears UsedDateSmoking Tobacco: NeverSmokeless Tobacco: NeverAlcohol UseStandard Drinks/WeekCommentsYes0 (1 standard drink = 0.6 oz pure alcohol)occasionallyChildcareAnswerDate FcysoiwcImtffiannHuibmoj73/12/2019 EmploymentAnswerDate RtvmbzznGwkgqzfekhMmmsjxz88/12/2019Purpose - LifeAnswerDate RecordedPurpose and direction in twplLjkxpne34/11/2021CommentsNoSex and Gender InformationValueDate RecordedSex Assigned at BirthNot on fileLegal Sex Kyuyhu2204/12/2015 11:53 AM EDTGender IdentityNot on fileSexual OrientationNot on file Last Filed Vital Signs Vital SignReadingTime TakenCommentsBlood Cvkhlrlp708/8104/ 4:17 PM EDT Fpdrb25374 4:17 PM KUFRoafygwtbjt70.8 ??C (98.2 ??F)01/03/2021 4:17 PM EDTRespiratory Flbn2628 4:17 PM EDTOxygen Wkcfvvufyg49%01/03/2021 4:17 PM EDTInhaled Oxygen Concentration--Hqlwuo90.4 kg (175 lb)01/03/2021 4:17 PM EDT Yfdiyn596 cm (5' 3 )01/03/2021 4:17 PM EDTBody Mass Kaklp929801/03/2021 4:17 PM EDT Plan of Treatment Health MaintenanceDue DateLast DoneCommentsDepression Xgpiywlsn33/27/2009Tobacco Ivgonokcd26/27/2009dult BMI Zfkodpbyo66/27/2015Pap Smear2018DTaP,Tdap and Td Vaccines (7 - Td or Tdap), 02/17/2003, 02/01/1999, Additional history existsInfluenza Pvbvjmi48, 10/08/2009, 08/29/2008 Medical Devices Not on file Insurance MemberSubscriberPlan / Payer (Effective 2016-Present)Name:Deirdre Nichols Relation to Subscriber:ChildName:Yasmeen Noland Date of :1972 (Home) Address: [address] [place] [address] Payer ID:Not on file Type:Not on file Address: [facility] [address] [place] [id number] Advance Directives * Full Code (Latest Code Status on File) Date ActivatedDate InactivatedComments12/19/2017 2:33 PM12/20/2017 4:51 PM Care Teams Team MemberRelationshipSpecialtyStart DateEnd Date [place], [place] [address] [facility]
--- OUTSIDE RECORDS SUMMARY | 2025-07-12 23:03 | XMS_ITS | Clinical Summary ---
Author Organization [facility] Address [address] [place] [address] Care Team Providers Care Grease Refiner Operator Name Role Phone Alicia Jurado WOODWINDS TEACHER Primary Care Provider + [phone] Allergies Active AllergyReactionsCriticalityNoted JuyeTuoskeexFmutqqslhnsTqpdMjo05/20/2017 ImtscxkutmdRjbue58/15/2024 Medications MedicationSigDispense QuantityRefillsLast FilledStart DateEnd DateStatus cetirizine (ZYRTEC) 10 MG tablet 06/01/2023ctive prenat.vits,raina,zqc-wbgo-oilis Tab Take by mouth .Active Active Problems ProblemNoted DateDiagnosed GewlEvbctcgtf89/15/2024 Social History Tobacco UseTypesPacks/DayYears UsedDateSmoking Tobacco: NeverSmokeless Tobacco: Never Tobacco Cessation:Counseling Given: Not Answered Alcohol UseStandard Drinks/WeekCommentsNot Currently0 (1 standard drink = 0.6 oz pure alcohol)[facility] UtilitiesAnswerDate RecordedIn the past 12 months has the iconDial, moka5, or water [employer] threatened to shut off services in your home?No01/21/2024Humiliation, Afraid, Rape, and Kick questionnaireAnswerDate RecordedWithin the last year, have you been afraid of your partner or ex-partner?No01/21/2024Within the last year, have you been humiliated or emotionally abused in other ways by your partner or ex-partner?No01/21/2024 Within the last year, have you been kicked, hit, slapped, or otherwise physically hurt by your partner or ex-partner?No01/21/2024Within the last year, have you been raped or forced to have any kind of sexual activity by your part ner or ex-partner?No01/21/2024Hunger Vital SignAnswerDate RecordedWithin the past 12 months, you worried that your food would run out before you got the money to buymore.Never true01/21/2024Within the past 12 months, the food you bought just didn't last and you didn't have money to get more.Never true 01/21/2024RAPARE - TransportationAnswerDate RecordedIn the past 12 months, has lack of transportation kept you from medical appointments or from getting medications?No01/21/2024In the past 12 months, has lack of transportation kept you from meetings, work, or from getting things needed for daily living?No 01/21/2024Housing Stability Vital SignAnswerDate RecordedIn the last 12 months, was there a time when you were not able to pay the mortgage or rent on time?No 01/21/2024In the last 12 months, how many places have you lived?In the last 12 months, was there a time when you did not have a steady place to sleep or slept in [facility] (including now)?No01/21/2024CommentsNoSex and Gender InformationValueDate RecordedSex Assigned at BirthNot on fileLegal Sex Yxwgmn3508/27/2023 2:07 PM ESTGender NxzjhyknSyyxqu26/08/2024 3:35 PM EDTSexual OrientationNot on file Last Filed Vital Signs Vital SignReadingTime TakenCommentsBlood Nckcyfan116/8401/24/2024 8:29 AM EDT Htvcu339801/24/2024 8:29 AM ACKAtpgsgqvnaq30.7 ??C (98.1 ??F)01/24/2024 8:29 AM EDTRespiratory Tbbc530701/24/2024 1:30 PM EDTOxygen Rvyzoelqit61%01/24/2024 8:29 AM EDTInhaled Oxygen Concentration--Wxjdvx675.9 kg (229 lb)01/20/2024 9:00 PM AHXYmifxu794 cm (5' 3 )01/20/2024 9:00 PM EDTBody Mass Index40.57001/20/2024 9:00 PM EDT Plan of Treatment Health MaintenanceDue DateLast DoneCommentsMedicare Wellness Visit2000 Depression Screening/Follow-Up (PHQ-2/9)2009HIV Qctiwggzn54/27/2012 Tetanus: Every 10yrs (RETIRED)COVID-19 Vaccine ( season)/02/2021, 12/19/2020, 11/27/2020Influenza Vaccine (#1) /, 06/20/2020, 06/22/2019, Additional history existsPap Smear /Hepatitis C ErfutqbahJewcnepll89/15/2024neumococcal Vaccine Aged OutNo longer eligible based on patient's age to complete this topic Procedures Procedure NamePriorityDate/TimeAssociated DiagnosisCommentsHEPATITIS C ANTIBODY Vqtsnzo4001/20/2024 8:29 PM EDT from Last 3 Months or Most Recently Relevant to Health Maintenance Results * Hepatitis C Antibody (01/20/2024 8:29 PM EDT)ComponentValueRef RangeTest MethodAnalysis TimePerformed AtPathologist SignatureHepatitis C AbNegative Bdotaxml81/15/2024 10:56 PM EDTR[facility] LABSpecimen (Source)Anatomical Location / LateralityCollection Method / VolumeCollection TimeReceived TimeBloodBLOOD SPECIMEN / UnknownVenipuncture / Kyfzduo9801/20/2024 8:29 PM EDT01/20/2024 8:56 PM EDT Narrative [facility] - 01/20/2024 10:56 PM EDT Test performed using Dorie KERRI immunoassay system Authorizing ProviderResult TypeResult StatusTodd Emir Foley MDLAB BLOOD ORDERABLESFinal ResultPerforming OrganizationAddressCity/State/ZIP CodePhone Number [facility] [address] [place] [address] from Last 3 Months or Most Recently Relevant to Health Maintenance Insurance [place] [id number] Advance Directives For more information, please contact: [phone] * Full Code (Latest Code Status on File) Date ActivatedDate InactivatedComments01/22/2024 5:02 AM01/24/2024 6:06 PM * Full Code Date ActivatedDate InactivatedComments01/22/2024 12:48 AM01/22/2024 3:31 AM * Full Code Date ActivatedDate InactivatedComments01/20/2024 8:58 PM01/22/2024 12:48 AM Care Teams Team MemberRelationshipSpecialtyStart DateEnd Date Alicia Jurado CNP [address] [place] [id number] [facility]01/13/24
--- OUTSIDE RECORDS SUMMARY | 2025-07-12 23:03 | XMS_ITS | Encounter Summary ---
Author Organization [facility] Address [address] [facility] [place] [address] Care Team Providers Care Cardiac/Vascular Sonographer Name Role Phone Unallocated, Noms Provider Primary Care [facility] Encounter Details DateTypeDepartmentCare Team (Latest Contact Info)Hkiiinkmdlw95/30/2025Bamboo flowsheet PILO Bower [facility] [address] [place] [address] Ernestine López PA [address] [place] [address] Social History Tobacco UseTypesPacks/DayYears UsedDateSmoking Tobacco: Never Assessed Estimated Date of UzgogzlcDkvwcdwjKiu66/13/2025Based on last menstrual period of 10/13/2024Sex and Gender InformationValueDate RecordedSex Assigned at BirthNot on fileLegal EesObufcf44/15/2023 6:51 PM EDTGender UbgirzfyHgqqdp55/15/2023 6:51 PM EDTSexual EuykdajhccjIdbvpbwh07/15/2023 6:51 PM EDTdocumented as of this encounter Plan of Treatment Not on file documented as of this encounter Goals GoalPatient Goal TypeAssociated ProblemsRecent ProgressPatient-Stated?Author Reminders Care PlanOB RemindersNoOpen Scheduling, Backgrounddocumented as of this encounter Visit Diagnoses Not on filedocumented in this encounter Additional Health Concerns Active ProblemsNoted DateDiagnosed DateOB Qmcagjrhu25/ documented as of this encounter Care Teams Team MemberRelationshipSpecialtyStart DateEnd Date Unallocated, Noms Provider, [address] [address] PCP - GeneralFamily Medicine01/25/24documented as of this encounter
[2025-07-12] MEDS: 0.9 % SODIUM CHLORIDE 1,000 ML 125 ML IV (23:33)
[2025-07-12 23:40] VITALS: TEMP 37.3
[2025-07-13] VITALS (51 sets, daily range): BP systolic 101–143; BP diastolic 55–86; PULSE 68–96; TEMP 36.8–37.2
[2025-07-13 00:02] LABS: Hematocrit 32.7 % (36.0-48.0); Hemoglobin 11.1 g/dL (12.0-16.0); Mean Corpuscular HGB Conc 33.9 g/dL (29.9-35.2); Mean Corpuscular Hemoglobin 31.8 pg (26.7-34.0); Mean Corpuscular Volume 93.7 fL (81.0-99.0); Platelet Count 149 10^3/uL (150-450); Red Blood Count 3.49 10^6/uL (4.20-5.40); White Blood Count 9.1 10^3/uL (4.0-11.0)
[2025-07-13] MEDS: OXYTOCIN/0.9 % SODIUM CHLORIDE 10 UNITS/500 ML PLAST..BAG 6 UNIT IV (00:10)
[2025-07-13 00:26] LABS: Cannabinoid Screen Urine NEGATIVE (NEGATIVE); Methamphetamines Screen Urine NEGATIVE (NEGATIVE); Tricyclic Antidepressant Urine NEGATIVE (NEGATIVE)
[2025-07-13] MEDS: 0.9 % SODIUM CHLORIDE 1,000 ML 125 ML IV ×2 (07:13→10:09)
[2025-07-13] MEDS: ROPIVACAINE HCL/PF 400 MG/200 ML PREMIX 6 MG EPIDURAL (10:09)
[2025-07-13] MEDS: OXYTOCIN/0.9 % SODIUM CHLORIDE 10 UNITS/500 ML PLAST..BAG 60 UNIT IV (10:43)
[2025-07-13] MEDS: FENTANYL CITRATE/PF 100 MCG/2 ML VIAL EPIDURAL (14:06)
[2025-07-13] MEDS: ROPIVACAINE HCL 0.2% PF 40 MG/20 ML VIAL 20 MG EPIDURAL (14:06)
[2025-07-13] MEDS: OXYTOCIN/0.9 % SODIUM CHLORIDE 20 UNITS/1,000 ML PLAST..BAG 125 UNIT IV (14:30)
--- NOTE | 2025-07-13 14:34 | PM.OBPRCVD ---
Procedure Intrapartal events: None Induction method: per pitocin protocol Delivery augmentation: rupture of membranes and pitocin Delivery monitor: external FHT and external uterine Route of delivery: Episiotomy Description: none L&D Laceration Description: perineal - 1st degree Delivery repair: Vicryl Estimated blood loss (mL): 375 Anesthesia type: Epidural Disposition: floor Infant Delivery date: 07/13/25 Gender: male presentation: vertex Placental delivery description: Spontaneous cord description: 3 Vessels and Nuchal Cord
[2025-07-13] MEDS: BENZOCAINE/MENTHOL 85 GRAM SPRAY BOTTLE 1 APPLIC TOPICAL (20:55)
[2025-07-13] MEDS: GLYCERIN/WITCH HAZEL PADS 1 PAD TOPICAL (20:56)
[2025-07-13] MEDS: ACETAMINOPHEN 325 MG TABLET 650 MG PO (20:56)
[2025-07-13] MEDS: IBUPROFEN 600 MG TABLET PO (20:57)
[2025-07-14] MEDS: ACETAMINOPHEN 325 MG TABLET 650 MG PO ×2 (05:11→15:00)
[2025-07-14] MEDS: IBUPROFEN 600 MG TABLET PO ×2 (05:11→15:00)
[2025-07-14 07:03] LABS: Hematocrit 28.5 % (36.0-48.0); Hemoglobin 9.5 g/dL (12.0-16.0); Immature Granulocytes Abs Auto 0.03 10^3/uL (0.00-0.03); Immature Granulocytes Pct Auto 0.3 % (0.0-0.5); Lymphocytes Absolute Auto 0.9 10^3/uL (1.2-3.8); Mean Corpuscular HGB Conc 33.3 g/dL (29.9-35.2); Mean Corpuscular Hemoglobin 32.1 pg (26.7-34.0); Mean Corpuscular Volume 96.3 fL (81.0-99.0); Platelet Count 107 10^3/uL (150-450); Red Blood Count 2.96 10^6/uL (4.20-5.40); White Blood Count 10.7 10^3/uL (4.0-11.0)
[2025-07-14 08:32] VITALS: BP 127/67; PULSE 96; TEMP 36.8
[2025-07-14] MEDS: DOCUSATE SODIUM 100 MG CAPSULE PO (08:35)
--- NOTE | 2025-07-14 08:54 | PM.OBPN ---
OB - PN: Subj Subjective Patient comments: no complaints and pain well controlled [place] status: doing well Exam Constitutional Vital Signs, click to edit/add: Last Vital Signs Temp 98.2 F 07/14/25 08:32 Pulse 96 H 07/14/25 08:32 Resp 16 07/14/25 08:35 BP 127/67 07/14/25 08:32 O2 Del Method Room Air 07/14/25 08:35 Documenting provider has reviewed patient's vital signs: yes Common normals: no apparent distress Respiratory Common normals: normal respiratory effort and clear to auscultation bilaterally Cardio Common normals: regular rate and regular rhythm GI Common normals: Normal to inspection, nondistended, normoactive bowel sounds present Extremity Common normals: no clubbing, cyanosis or edema and no calf tenderness Results Labs Labs: Short CBC 07/14/25 Range/Units 06:52 WBC 10.7 (4.0-11.0) 10^3/uL Hgb 9.5 L (12.0-16.0) g/dL Hct 28.5 L (36.0-48.0) % Plt Count 107 L (150-450) 10^3/uL OB - PN: A/P Plan - Vaginal Delivery day: 1 Plan: routine care, discharge home and follow up 6 weeks Time Spent with Patient Time: Total time spent is greater than 50% in coordination of care (as documented) at patient's floor/unit and/or counseling patient: Total time spent with greater than 50% in coordination of care (as documented) at patient's floor/unit and/or counseling patient: less than 15 minutes
[2025-07-14] MEDS: FLU VACC TS2025-26(6MOS UP)/PF FLULAVAL 45 MCG/0.5 ML SYRINGE IM (16:22)
[2025-07-14] MEDS: DIPHTH,PERTUSS(ACELL),TET VAC 0.5 ML SYRINGE IM (16:23)
[2025-07-14 16:26] VITALS: BP 125/76; PULSE 83
[2025-07-14 16:37] VITALS: TEMP 36.7
== END 2025-07-14 17:00 | disposition home or self-care (01) | DRG 560 ==
PROVIDERS: Admitting Provider Obstetrics & Gynecology; Visit Provider Obstetrics & Gynecology
DX: O69.81X0 Labor and delivery complicated by cord around neck, without compression, not applicable or unspecified (principal); O70.0 First degree perineal laceration during delivery; Z3A.39 39 weeks gestation of pregnancy; Z37.0 Single live birth; Z87.59 Personal history of other complications of pregnancy, childbirth and the puerperium
CPT/HCPCS: 36415; 59050; 59410; 80307; 85025; 85027; 86850; 86900; 86901; 90715; J0665; J2795; J3010